=== PATIENT | male | born 1955 | race Caucasian/White ===

== ENCOUNTER 2024-11-23 10:06 | Emergency (ER) | payer OTHER, SELFPAY ==
--- OUTSIDE RECORDS SUMMARY | 2023-11-28 05:49 | XMS_ITS | Encounter Summary ---
Author Name [facility] [place] [facility] [place] [facility] [place] [facility] [place] Address [address] [place] [address] Care Team Providers Care Sales And Leasing Consultant Name Role Phone AMANDEEP PETERS Primary Care Provider Unavailabl e DRE, SAMMI Unavailable Unavailable HILARIO CABRAL Primary Care Provider Unavailabl e Insurance Providers: All historical and current Section Date Range: From patient's date of to the date document was created. This section includes the names of all active insurance providers for the patient. Insurance Provider Type of Coverage Plan Name Start of Policy Coverage End of Policy Coverage Group Number Member ID Insurance Provider's Telephone Number Policy Ross's Name Patient's Relationship to Policy Ross MEDICARE (WNR) MEDICARE (M) PART A May 04, 2019 PART A [id number] [phone] KIMMIE,ALVARO SHELTON PATIENT MEDICARE (WNR) MEDICARE (M) PART B May 04, 2019 PART B [id number] BURKS,AN CAT PATIENT MEDICARE (WNR) MEDICARE (M) PART A October 02, 2018 PART A [id number] [phone] KIMMIE,ALVARO ZHENGONY PATIENT MEDICARE (WNR) MEDICARE (M) PART B October 02, 2018 PART B [id number] [phone] KIMMIE,ALVARO SHELTON PATIENT Selected Encounter This section includes the information on record at [place] for the Encounter. Date/Time Encounter Type Encounter Description Reason Pro vider Source Nov 28, 2023 09:49 AM Outpatient Encounter ADMIN PAT ACTIVTIES (MASNONCT) IHE Encounter Template Text not used by [place] Plan of Treatment: Future Appointments (+ 6 months) and Future Tests (+/- 45 days) The Plan of Treatment section includes future care activities for the patient from all [place] [facility]. This section includes future appointments and future orders which are active, pending or scheduled. Future Appointments This section includes appointments that were scheduled to occur 6 months from the date of the Encounter, up to a maximum of 20 appointments. The data comes from all [facility]. Appointment Date/Time Appointment Type Appointme nt Facility Name Dec 14, 2023 01:30 PM AMBULATORY - MEDICINE [facility] Jan 05, 2024 08:46 PM AMBULATORY - MEDICINE [facility] Feb 05, 2024 08:06 PM AMBULATORY - MEDICINE [facility] Feb 14, 2024 08:22 PM [facility] - [facility]ICINE [facility] Feb 27, 2024 07:02 PM [facility] - [facility]IC[facility] Feb 29, 2024 01:30 PM [facility] Mar 06, 2024 01:00 PM AMBULATORY - REHAB [facility]ICIN [facility] Mar 27, 2024 02:00 PM AMBULATORY - NONE [facility] Apr 02, 2024 01:45 PM [facility] Apr 02, 2024 02:20 PM [facility] Apr 02, 2024 03:45 PM AMBULATORY - REHAB MEDICIN [facility] Apr 15, 2024 08:30 AM AMBULATORY - NONE [facility] May 22, 2024 07:30 AM AMBULATORY - NONE [facility] May 22, 2024 10:30 AM AMBULATORY [facility] Active, Pending, and Scheduled Orders This section includes a listing of several types of active, pending, and scheduled orders, including clinic medications orders, diagnostic test orders, procedure orders and consult orders; where the start date of the order is 45 days before the date of the Encounter or 45 days after the date of theEncounter. The data comes from all [facility]. Test Date/Time Test Type Test Details Facility Name Dec 12, 2023 12:00 AM Laboratory - Chemistry Order LIPID PROFILE (FASTING) [facility]LOOD-[facility] Dec 12, 2023 12:00 AM Laboratory - Chemistry [facility] Dec 12, 2023 12:00 AM Laboratory - Chemistry Order MICROALBUMINURIA PANEL (ORDER.) URINE [facility] Dec 12, 2023 12:00 AM Laboratory - Chemistry Order URINALYSIS-MICROSCOPIC URINE [facility] Dec 12, 2023 12:00 AM Laboratory - Chemistry Order OP-CBC (INCL DIFF[facility] Dec 12, 2023 12:00 AM Laboratory - Chemistry Order SIMPLIFIED METABOLIC PANEL BLOOD-[facility] Dec 12, 2023 12:00 AM Laboratory - Chemistry Order LIVER FUNCTION PANEL BLOOD-[facility] Social History: Smoking Status (Most current) and Tobacco Use (All prior to encounter date) This section includes the most current, and the historical, smoking and tobacco- related health factors from the [place] facility where the Encounter took place. Current Smoking Status This section includes the most current smoking, or tobacco-related health factor, from the [place] facility where the Encounter took place. Date/Time Current Smoking Status Comment Facil ity Jun 13, 2023 10:00 AM VA-TOBACCO FORMER USER [facility] Tobacco Use History This section includes a history of the smoking, or tobacco-related health factors, that were collected on or before the date of the Encounter. The data comes from the [place] facility where the Encounter took place. Date/Time Smoking Status/Tobacco Use Comment F acility Jun 13, 2023 10:00 AM MS-TOBACCO QUIT < 1 YEAR [facility] Advance Directives: All historical and current Section Date Range: From patient's date of to the date document was created. This section includes ALL of a patient's completed or amended [place] Advance and Rescinded Directives. The entries below indicate that a directive exists for the patient, but an actual copy is not included with this document. The data comes from all [place] facilities. Date Advance Directives Provider Source Jun 13, 2023 ADVANCE DIRECTIVE DISCUSSION VÍCTOR HAMPTON [facility] Jan 16, 2008 ADVANCE DIRECTIVE ROBERTA GARCIA [facility] Jan 16, 2008 ADVANCE DIRECTIVE RALPH DE DIOS NIKarey [facility] Radiology Reports: +/- 30 days of the encounter Radiology Reports For cases when an order for radiology services may have been completed prior to the date of the Encounter, the report list includes the Radiology Reports that were completed up to 30 days before dateof the Encounter. For cases when an order for radiology services may have been completed after the date of the Encounter, the report list also includes the Radiology Reports that were completed up to30 days after date of the Encounter. The data comes from all [place] treatment facilities. Date/Time Radiology Report Provider Source Nov 19, 2023 06:24 AM LDCT LUNG CANCER S CREENING: BURKS,ROSE MARY KATHY [id number] -1955 M Exm Date: NOV 19, 2023@06:24 Req Phys: ISAAK BATES Loc: [facility] RN PHONE (Req'g Loc) Img Loc: [facility] CT Service: [place] [address] (Case [id number] COMPLETE) LDCT LUNG CANCER SCREENING (CT Detailed) CPT:35723 Reason for Study: SEE BELOW Clinical History: REASON FOR EXAM and PERTINENT PATIENT HISTORY: 67 yo,WHITE OR ,MALE with h/o HTN, skin ca, TIA 01/2023, CAD, COPD and 110 TPY (2 ppd x 55 yrs) cigarette smoking history, is a previous smoker, quit 01/2023. Referred to initial LCS. ORAL Contrast? Defer to Radiologist Defer to radiologist for final CT Protocol? Yes PROVIDER Ext:Pager# (the following included in case IV contrast considered) Collection DT Spec eGFR a 06/13/2023 12:46 SERUM 93.4 b 05/18/2023 09:32 SERUM 65.5 COMMENTS: a. eGFR CKD-EPI eGFR calculated using the 2020 BIO-BNJ-kvkidtaeed equation; units of measure are mL/min/1.73m~2. eGFR can only be interpreted if creatinine is in steady state and is not valid in patients with acute kidney injury and in patients on dialysis. CKD is diagnosed based on abnormalities of kidney structure or function, present for >3 months, with implications for health and disease. CKD is classified and stage based on cause, eGFR and albuminuria, quantified as urine albumin to creatinine ratio. eGFR staging of CKD Stage G1 eGFR >90 mL/min/1.73m~2 Stage G2 eGFR 60-89 mL/min/1.73m~2 Stage G3a eGFR 45-59 mL/min/1.73m~2 Stage G3b eGFR 30-44 mL/min/1.73m~2 Stage G4 eGFR 15-29 mL/min/1.73m~2 Stage G5 eGFR <15 mL/min/1.73m~2 b. eGFR CKD-EPI eGFR calculated using the 2020 BLO-GDE-sduebgrgyg equation; units of measure are mL/min/1.73m~2. eGFR can only be interpreted if creatinine is in steady state and is not valid in patients with acute kidney injury and in patients on dialysis. CKD is diagnosed based on abnormalities of kidney structure or function, present for >3 months, with implications for health and disease. CKD is classified and stage based on cause, eGFR and albuminuria, quantified as urine albumin to creatinine ratio. eGFR staging of CKD Stage G1 eGFR >90 mL/min/1.73m~2 Stage G2 eGFR 60-89 mL/min/1.73m~2 Stage G3a eGFR 45-59 mL/min/1.73m~2 Stage G3b eGFR 30-44 mL/min/1.73m~2 Stage G4 eGFR 15-29 mL/min/1.73m~2 Stage G5 eGFR <15 mL/min/1.73m~2 Report Status: Verified Date Reported: NOV 20, 2023 Date Verified: NOV 20, 2023 Manager Market Intelligence E-Sig: Report: EXAM: LDCT LUNG CANCER SCREENING ADDITIONAL HISTORY: 67 yo,WHITE OR ,MALE with h/o HTN, skin ca, TIA 01/2023, CAD, COPD and 110 TPY (2 ppd x 55 yrs) cigarette smoking history, is a previous smoker, quit 01/2023. Referred to initial LCS. 67 yo,WHITE OR ,MALE with h/o HTN, skin ca, TIA 01/2023, CAD, COPD and 110 TPY (2 ppd x 55 yrs) cigarette smoking history, is a previous smoker, quit 01/2023. Referred to initial LCS. COMPARISON: CT chest 01/18/2023 PROTOCOL: Screening protocol, low dose, non-contrast CT chest was performed at the local [place] facility in accordance with Lung-Rads 2021. Additional coronal and sagittal reconstructions. MIP reconstructions were reviewed. RADIATION DOSE: CTDI(vol): 3 mGy DLP: 138 mGy*cm INDEX NODULE: No suspicious pulmonary nodule. OTHER NODULES: Few pulmonary micronodules, some of which are stable, others appear new, for example a 2 mm nodule in the right upper lobe (302-37). Calcified granulomas, likely sequelae of remote granulomatous disease. LUNG/AIRWAY FINDINGS: Biapical pleural parenchymal scarring. Additional mild scattered atelectasis/scarring. HEART, MEDIASTINUM AND LYMPH NODES: Atherosclerotic vascular calcifications. Subcentimeter short axis lymph nodes. UPPER ABDOMEN: Hepatic steatosis. Cholelithiasis. Contracted gallbladder. Punctate nonobstructive right nephrolithiasis. BONES, SOFT TISSUES, AND ADDITIONAL FINDINGS: Mild gynecomastia. Osseous degenerative changes. Impression: LUNG-RADS: LungRADS 2: BENIGN NODULE APPEARANCE OR BEHAVIOR. RECOMMENDATION: [address] follow-up, if patient meets screening criteria. LUNG-RADS MODIFIER: N/A. Briana Luna MD on 11/20/2023 9:02 AM Primary Diagnostic Code: LUNGRADS 2: BENIGN APPEARANCE OR BEHAVIOR Primary Interpreting Staff: BRIANA LUNA, Radiologist Verified by computer tape librarian for BRIANA LUNA /BRIANA ROWELL [facility] Encounter Notes: All associated encounter notes This section contains the clinical notes associated to the Encounter. Date/Time Encounter Note(s) Provider Source Nov 28, 2023 09:49 AM ADMINISTRATIVE NOT E: LOCAL TITLE: HEALTH ADMINISTRATION SERVICE NOTE/ ADMIN STANDARD TITLE: ADMINISTRATIVE NOTE DATE OF NOTE: NOV 28, 2023@09:49 ENTRY DATE: NOV 28, 2023@09:50:01 AUTHOR: ANGELICA FAJARDO COSIGNER: URGENCY: STATUS: COMPLETED Mr. Burks was not available, so I left message informing the that his 12/27/23 appointment has been canceled. I also left a contact number the can call when he is ready to R[facility] [place] [address] provider, Dr. Jay is leaving this facility. /kallie/ ANGELICA FAJARDO msa Signed: 11/28/2023 09:51 ANGELICA FAJARDO [facility]
--- OUTSIDE RECORDS SUMMARY | 2023-11-29 06:15 | XMS_ITS | Encounter Summary ---
Author Name [facility] [place] [facility] [place] [facility] [place] Address [address] [place] [address] Care Team Providers Care Supervisor Typesetting Name Role Phone AMANDEEP PETERS Primary Care [...] PART A May 04, 2019 PART A [id number] KIMMIE,ALVARO SHELTON PATIENT MEDICARE (WNR) MEDICARE (M) PART B May 04, 2019 PART B [id number] BURKS,AN CAT PATIENT MEDICARE (WNR) MEDICARE (M) PART A October 02, 2018 PART A [id number] KIMMIE,ALVARO ZHENGONY PATIENT MEDICARE (WNR) MEDICARE (M) PART B October 02, 2018 PART B [id number] KIMMIE,ALVARO SHELTON PATIENT Selected Encounter This section includes the information on record at [place] for the Encounter. Date/Time Encounter Type Encounter Description Reason Pro vider Source Nov 29, 2023 10:15 AM Outpatient Encounter ADMIN PAT ACTIVTIES (MASNONCT) IHE Encounter Template Text not used by [place] Plan of Treatment: Future Appointments (+ 6 months) and Future Tests (+/- 45 days) The Plan of Treatment section includes future care activities for the patient from all [place] [facility]. This section includes future appointments and future orders which are active, pending or scheduled. Future Appointments This section includes appointments that were scheduled to occur 6 months from the date of the Encounter, up to a maximum of 20 appointments. The data comes from all [facility]. Appointment Date/Time Appointment Type Appointme nt Facility Name Dec 14, 2023 01:30 PM AMBULATORY - MEDICINE [facility] Jan 05, 2024 08:46 PM AMBULATORY - MEDICINE [facility] Feb 05, 2024 08:06 PM AMBULATORY - MEDICINE [facility] Feb 14, 2024 08:22 PM [facility]ORY - [facility]IC[facility] Feb 27, 2024 07:02 PM [facility] Feb 29, 2024 01:30 PM [facility] Mar 06, 2024 01:00 PM [facility] Mar 27, 2024 02:00 PM AMBULATORY - NONE [facility] Apr 02, 2024 01:45 PM [facility] Apr 02, 2024 02:20 PM [facility] Apr 02, 2024 03:45 PM [facility] Apr 15, 2024 08:30 AM AMBULATORY - NONE [facility] May 22, 2024 07:30 AM AMBULATORY - NONE [facility] May 22, 2024 10:30 AM AMBULATORY [facility] Active, Pending, and Scheduled Orders This section includes a listing of several types of active, pending, and scheduled orders, including clinic medications orders, diagnostic test orders, procedure orders and consult orders; where the start date of the order is 45 days before the date of the Encounter or 45 days after the date of theEncounter. The data comes from all [facility]. Test Date/Time Test Type Test Details Facility Name Dec 12, 2023 12:00 AM Laboratory - Chemistry Order LIPID PROFILE (FASTING) BLOOD-[facility] Dec 12, 2023 12:00 AM Laboratory - Chemistry Order [facility] Dec 12, 2023 12:00 AM Laboratory - Chemistry Order MICROALBUMINURIA PANEL (ORDER.) URINE [facility] Dec 12, 2023 12:00 AM Laboratory - Chemistry Order URINALYSIS-MICROSCOPIC URINE [facility] Dec 12, 2023 12:00 AM Laboratory - Chemistry Order OP-CBC (INCL DIFF) [facility] Dec 12, 2023 12:00 AM Laboratory - Chemistry Order SIMPLIFIED METABOLIC PANEL BLOOD-[facility] Dec 12, 2023 12:00 AM Laboratory - Chemistry Order LIVER FUNCTION PANEL BLOOD-[facility] Social History: Smoking Status (Most current) and Tobacco Use (All prior to encounter date) This section includes the most current, and the historical, smoking and tobacco- related health factors from the [place] facility where the Encounter took place. Current Smoking Status This section includes the most current smoking, or tobacco-related health factor, from the [place] facility where the Encounter took place. Date/Time Current Smoking Status Comment Facil ity Jun 13, 2023 10:00 AM VA-TOBACCO FORMER USER [facility] Tobacco Use History This section includes a history of the smoking, or tobacco-related health factors, that were collected on or before the date of the Encounter. The data comes from the [place] facility where the Encounter took place. Date/Time Smoking Status/Tobacco Use Comment F acility Jun 13, 2023 10:00 AM PA-TOBACCO QUIT < 1 YEAR [facility] Advance Directives: All historical and current Section Date Range: From patient's date of to the date document was created. This section includes ALL of a patient's completed or amended [place] Advance and Rescinded Directives. The entries below indicate that a directive exists for the patient, but an actual copy is not included with this document. The data comes from all [place] facilities. Date Advance Directives Provider Source Jun 13, 2023 ADVANCE DIRECTIVE DISCUSSION VÍCTOR HAMPTON [facility] Jan 16, 2008 ADVANCE DIRECTIVE ROBERTA GARCIA [facility] Jan 16, 2008 ADVANCE DIRECTIVE RALPH DE DIOS [facility] Radiology Reports: +/- 30 days of the [...] the Encounter. The data comes from all [place] treatment facilities. Date/Time Radiology Report Provider Source Nov 19, 2023 06:24 AM LDCT LUNG CANCER S CREENING: BURKS,ROSE MARY KATHY [id number] -1955 M Exm Date: NOV 19, 2023@06:24 Req Phys: ISAAK BATES Loc: [facility] RN PHONE (Req'g Loc) Img Loc: [facility] CT Service: [place] [address] (Case [id number] COMPLETE) LDCT LUNG CANCER SCREENING (CT Detailed) CPT:49367 Reason for Study: SEE BELOW Clinical History: [...] eGFR CKD-EPI eGFR calculated using the 2020 DXK-CFR-xjyxtusqrk equation; units of measure are mL/min/1.73m~2. eGFR [...] eGFR CKD-EPI eGFR calculated using the 2020 TZQ-XLL-nnuzxzyzie equation; units of measure are mL/min/1.73m~2. eGFR [...] 20, 2023 Date Verified: NOV 20, 2023 Tire Manager E-Sig: Report: EXAM: LDCT LUNG CANCER SCREENING [...] CT chest was performed at the local [place] facility in accordance with Lung-Rads 2021. Additional [...] Interpreting Staff: BRIANA LUNA, Radiologist Verified by metrologist for BRIANA LUNA /BRIANA ROWELL [facility] Encounter Notes: All associated encounter notes This section contains the clinical notes associated to the Encounter. Date/Time Encounter Note(s) Provider Source Nov 29, 2023 10:16 AM ADMINISTRATIVE NOT E: LOCAL TITLE: HEALTH ADMINISTRATION SERVICE NOTE/ ADMIN STANDARD TITLE: ADMINISTRATIVE NOTE DATE OF NOTE: NOV 29, 2023@10:16 ENTRY DATE: NOV 29, 2023@10:16:10 AUTHOR: ANGELICA FAJARDO COSIGNER: URGENCY: STATUS: COMPLETED Mr. Burks was not available, so I left message informing him the 12/27/23 appointment has been cx. Due to the [place] [facility] provider transferring to the [facility]. I also left a contact number the can call when he is ready to reschedule the new January 2024 appointment with [place] provider. /es/ ANGELICA FAJARDO msa Signed: 11/29/2023 10:19 ANGELICA FAJARDO [facility]
--- OUTSIDE RECORDS SUMMARY | 2024-01-05 16:46 | XMS_ITS | Encounter Summary ---
Author Name [facility] [place] [facility] [place] Address [address] [place] [address] Care Team Providers Care Contract Administration Manager Name Role Phone AMANDEEP PETERS Primary Care [...] PART A May 04, 2019 PART A [id number] KIMMIE,ALVARO ZHENGONY PATIENT MEDICARE (WNR) MEDICARE (M) PART B May 04, 2019 PART B [id number] BURKS,AN CAT PATIENT MEDICARE (WNR) MEDICARE (M) PART A October 02, 2018 PART A [id number] BURKS,AN CAT PATIENT MEDICARE (WNR) MEDICARE (M) PART B October 02, 2018 PART B [id number] KIMMIE,ALVARO SHELTON PATIENT Selected Encounter This section includes the information on record at [place] for the Encounter. Date/Time Encounter Type Encounter Description Reason Provider Source Jan 05, 2024 08:46 PM EMERGENCY DEPT VISIT [facility] EMERGENCY DEPT ICD-10-CM Z04.9 Encounter for examination and observation for unsp reason TAMIKA TRIVEDI [facility] Encounter Template Text not used by [place] Assessments - Encounter Diagnoses This section includes the primary and secondary diagnoses documented for the Encounter. Date/Time Primary/Secondary Diagnosis Diagnosis Name Provider Source Jan 05, 2024 10:34 PM PRIMARY Encounter for examination and observation for unsp reason TAMIKA TRIVEDI [facility] Plan of Treatment: Future Appointments (+ 6 months) and Future Tests (+/- 45 days) The Plan of Treatment section includes future care activities for the [facility] This section includes future appointments and future orders which are active, pending or scheduled. Future Appointments This section includes appointments that were scheduled to occur 6 months from the date of the Encounter, up to a maximum of 20 appointments. The data comes from all [place] treatment facilities. Appointment Date/Time Appointment Type Appointme nt Facility Name Feb 05, 2024 08:06 PM AMBULATORY - [facility]ICINE [place] [facility] Feb 14, 2024 08:22 PM [facility]ORY - [facility]IC[facility] [place] [facility] Feb 27, 2024 07:02 PM [facility]ORY - [facility]ICINE [place] [facility] Feb 29, 2024 01:30 PM [facility] Mar 06, 2024 01:00 PM AMBULATORY - [facility] Mar 27, 2024 02:00 PM [facility] Apr 02, 2024 01:45 PM [facility] Apr 02, 2024 02:20 PM [facility] Apr 02, 2024 03:45 PM AMBULATORY - [facility] MEDICIN E [facility] Apr 15, 2024 08:30 AM AMBULATORY - NONE [facility] May 22, 2024 07:30 AM AM[facility]ORY - NONE [place] [facility] May 22, 2024 10:30 AM [facility] Jun 18, 2024 01:00 PM AMBULATORY - SURGERY [place] [facility] Jul 05, 2024 06:18 AM AMBULATORY - MEDICINE [facility] [facility] Active, Pending, and Scheduled Orders This section includes a listing of several types of active, pending, and scheduled orders, including clinic medications orders, diagnostic test orders, procedure orders and consult orders; where the start date of the order is 45 days before the date of the Encounter or 45 days after the date of theEncounter. The data comes from all [place] treatment facilities. Test Date/Time Test Type Test Details Facility Name Dec 12, 2023 12:00 AM Laboratory - Chemistry Order LIPID PROFILE (FASTING) [facility]LOOD-[facility] Dec 12, 2023 12:00 AM Laboratory - Chemistry [facility] Dec 12, 2023 12:00 AM Laboratory - Chemistry Order MICROALBUMINURIA PANEL (ORDER.) URINE [facility] Dec 12, 2023 12:00 AM Laboratory - Chemistry Order URINALYSIS-MICROSCOPIC URINE [facility] Dec 12, 2023 12:00 AM Laboratory - Chemistry Order OP-CBC (INCL DIFF) [facility] Dec 12, 2023 12:00 AM Laboratory - Chemistry Order SIMPLIFIED METABOLIC PANEL BLOOD-[facility] Dec 12, 2023 12:00 AM Laboratory - Chemistry Order LIVER FUNCTION PANEL BLOOD-[facility] Vital Signs: All taken on the encounter date This section contains inpatient and outpatient Vital Signs collected on the date of the Encounter. Date/Time Temperature Pulse Blood Pressure Respiratory Rate SP02 Pain Height Weight Body Mass Index Source Jan 05, 2024 08:56 PM 97.9 96 160/98 17 98 8 204.8 33 [facility] Social History: Smoking Status (Most current) and Tobacco Use (All prior to encounter date) This section includes the most current, and the historical, smoking and tobacco- related health factors from the [place] facility where the Encounter took place. Current Smoking Status This section includes the most current smoking, or tobacco-related health factor, from the [place] facility where the Encounter took place. Date/Time Current Smoking Status Comment Bautista calvillo Jan 04, 2017 03:31 PM CURRENT TOBACCO USER [facility] Tobacco Use History This section includes a history of the smoking, or tobacco-related health factors, that were collected on or before the date of the Encounter. The data comes from the [place] facility where the Encounter took place. Date/Time Smoking Status/Tobacco Use Comment F acility Jan 04, 2017 03:31 PM TOB INFO ON NON-VA STOP SMOKING CLINIC [facility] Jan 04, 2017 03:31 PM TOBACCO OFFERED PT MEDS (PROVIDE R) [facility] May 31, 2011 09:24 AM QUIT TOBACCO IN THE LAST [address] [facility] Advance Directives: All historical and current Section Date Range: From patient's date of to the date document was created. This section includes ALL of a patient's completed or amended [place] Advance and Rescinded Directives. The entries below indicate that a directive exists for the patient, but an actual copy is not included with this document. The data comes from all [place] facilities. Date Advance Directives Provider Source Jun 13, 2023 ADVANCE DIRECTIVE DISCUSSION VÍCTOR [facility] Jan 16, 2008 ADVANCE DIRECTIVE ROBERTA GARCIA [facility] Jan 16, 2008 ADVANCE DIRECTIVE RALPH DE DIOS [facility] Encounter Notes: All associated encounter notes This section contains the clinical notes associated to the Encounter. Date/Time Encounter Note(s) Provider Source Jan 05, 2024 09:37 PM EMERGENCY DEPT DIS CHARGE NOTE: LOCAL TITLE: EMERGENCY DEPT DISCHARGE INSTRUCTIONS STANDARD TITLE: EMERGENCY DEPT DISCHARGE NOTE DATE OF NOTE: JAN 05, 2024@21:37 ENTRY DATE: JAN 05, 2024@21:37 AUTHOR: ATMIKA TRIVEDI COSIGNER: URGENCY: STATUS: COMPLETED DISCHARGE INSTRUCTIONS IMPORTANT: We examined and treated you today on an emergency basis only. This was not a substitute for, or an effort to provide, comprehensive medical care. In most cases, you must let your healthcare provider check you again. Tell your healthcare provider about any new or lasting problems. We cannot recognize and treat all injuries or illnesses in one Emergency Department visit. After you leave, you should follow the instructions below. You were treated today by [facility]. [facility] Nurse Advice Call Center: Available 24 hours a day / 7 days a week at [phone] Special Information This Information Is About Your Follow Up Care We have submitted a request to have you assigned to a Primary Care team. You will receive a call in the next 7-10 business days. Future Appointments [none] This Information Is About Your Illness and Diagnosis LUMBAR RADICULOPATHY (Sciatica) Lumbar radiculopathy is pain in the low back that may go down into the buttock and leg. Sometimes it is called sciatica . The bones of the spine are called vertebrae . The vertebrae are stacked one on top of each other, with small cushions called discs in between each bone. Nerves from the spinal cord come out through the vertebrae, with the nerves in the lower spine going to the legs. If a nerve becomes irritated or pinched, pain and weakness may occur. What causes lumbar radiculopathy? Lumbar radiculopathy may be caused by anything that may pinch or irritate a spinal nerve in the low back, including: -arthritis in the spine -a bulging or herniated disc between the vertebrae -breakdown of a disc between the vertebrae from wear and tear -spinal stenosis (narrowing of the opening in the vertebrae) - defects of the spine -spine injuries What are the signs and symptoms of lumbar radiculopathy? -sharp, burning pain in the low back that shoots down the leg -leg and buttock pain -weakness in the leg and foot, particularly on only one side -numbness and/or tingling in the leg and foot -muscle spasms How does my health care provider know I have lumbar radiculopathy? -by examining you and talking to you about your symptoms -by doing x-rays of your back -by doing a magnetic resonance imaging (MRI) scan of your back -by doing a computerized tomography (CT) scan of your back -sometimes other tests are needed, such as a myelogram What is the usual treatment? -rest -pain medications (either griv-izm-ununihj medications or prescription medications) -muscle relaxant medications -physical therapy to help with strengthening your back -possible steroid injection in your back Please follow these instructions: -Slowly return to your usual activities, as allowed by your health care provider's instructions. -Avoid lifting, pushing or pulling. -Avoid sitting for long periods. -Do your back exercises regularly. -Keep follow-up appointments with your health care provider and/or with physical therapy. -Take any medications ordered for you exactly as directed. Contact your health care provider if you have: -pain in your back, buttock, or leg returns or gets worse. -weakness in your leg returns or gets worse. -numbness or tingling in your leg returns or gets worse. -any questions or concerns. KNEE PAIN The knee is prone to injury. Knee pain can be caused by excess weight, strains or injuries. It can involve the tendons, ligaments or bones. The treatment for the knee pain will depend on the cause of the pain. Most knee pain will get better with time and rest. In cases where the damage is severe, surgery may be recommended. Your health care provider will help determine the best way to treat the knee pain. Please follow these instructions: -Rest your knee for the next few days. -Elevate your knee on pillows when you are resting. -Apply an ice bag to your knee for 10 to 20 minutes to help with swelling and pain. -Take pain medicines exactly as prescribed. -Once the pain has lessened, you may slowly return to your normal activities. -Do not lift heavy objects or put any strain on your knee until the pain is gone. -Avoid any activity that causes pain. Contact your health care provider as soon as possible if you have any of the following: -increased pain. -pain that does not get any better over the next couple of weeks. -any new or more severe symptoms. -any questions or concerns. NEUROPATHY (Nerve pain or numbness) Nerve pain or numbness is caused by inflammation or damage to the nervous system in your body. This neuropathy does not involve the brain and spinal cord nervous system. The inflammation or damage may be caused by injury or disease. Sometimes we don't know the cause of neuropathy right away. Neuropathy may be chronic (long-lasting). It may have many symptoms including weakness, numbness, tingling, or pain. Please follow these instructions: -Exercise 15 to 30 minutes each day unless limited by your healthcare provider. Avoid activity that makes your symptoms worse. -Be realistic about how much you physically can do without increasing your pain. -Establish a regular sleep schedule. -Limit the caffeine in your diet. -If you smoke, STOP. -Eat a healthy, balanced diet. -Do not drink alcohol. -Practice relaxation techniques for your muscles and breathing. -Keep a diary that describes your pain or numbness by: -location -length of time pain or numbness is present -activity when pain or numbness started -description (stinging, burning, achy, stabbing, etc.) -time of day pain or numbness occurs -Show your pain diary to your healthcare provider during follow-up visits. Call your healthcare provider if: -your symptoms are getting worse. -your symptoms are not getting better after 7 to 14 days. -your symptoms change. -you have any new symptoms or concerns. IMPORTANT MEDICATION INFORMATION -Your medication list includes any medications that were recently prescribed but not filled by the Pharmacy (PENDING Medicines). -Included are any known ACTIVE Medicines. Your ACTIVE medications were not reconciled (reviewed for accuracy) today and may not represent the medications you are currently taking. Please review this list to make sure it is accurate, if this list does not match the current medications you are taking please follow-up with your Patient Alignment Care Team (PACT) to have your Medication List corrected. Be sure to provider your PACT team with any medications prescribed by health care institutions other than the [place]. Pending Medications GABAPENTIN 100MG CAP \ Sig: TAKE ONE CAPSULE BY MOUTH THREE TIMES A DAY FOR 7 DAYS, THEN TAKE TWO CAPSULES THREE TIMES A DAY FOR 7 DAYS, THEN TAKE THREE CAPSULES THREE TIMES A DAY\ This Rx contains a separate titration and maintenance component to its schedule and instructions \Indication: FOR NERVE PAIN PREDNISONE 20MG TAB \ Sig: TAKE TWO TABLETS BY MOUTH EVERY MORNING\Indication: FOR INFLAMMATION Active Medications AMLODIPINE BESYLATE 5MG TAB TAKE ONE TABLET BY MOUTH EVERY DAY FOR HIGH BLOOD PRESSURE ASPIRIN 81MG EC TAB TAKE ONE TABLET BY MOUTH EVERY DAY TO REDUCE YOUR RISK OF STROKE ATORVASTATIN CALCIUM 80MG TAB TAKE ONE TABLET BY MOUTH AT BEDTIME FOR HIGH CHOLESTEROL AZELASTINE INHL,NASAL 1 SPRAY IN EACH NOSTRIL EVERY MORNING (Non-VA Medication) CLOPIDOGREL BISULFATE 75MG TAB TAKE ONE TABLET BY MOUTH EVERY MORNING TO PREVENT STROKE DOXYCYCLINE HYCLATE CAP,ORAL 100MG BY MOUTH TWICE A DAY (Non-VA Medication) METHYLPREDNISOLONE 4MG TAB DOSEPAK,21 TAKE TABLETS BY MOUTH DIRECTED FOR INFLAMMATION WITH FOOD PER INSTRUCTIONS LOCATED ON BACK OF FOIL PACKAGE MethylPREDNISolone DOSEPAK TAB TABLETS BY MOUTH DIRECTED (Non-VA Medication) Medications Medications in the last 90 days ALBUTEROL 90MCG (CFC-F) 200D ORAL INHL INHALE 2 PUFFS BY MOUTH FOUR TIMES A DAY NEEDED FOR BRONCHOSPASM *SHAKE WELL BEFORE USING* AZELASTINE 137MCG/SPRAY 200D NASAL INHL USE 2 SPRAYS IN EACH NOSTRIL AT BEDTIME FOR SEASONAL RUNNY NOSE FLUTICAS 250/SALMETEROL 50 INHL DISK 60 INHALE 1 INHALATION BY MOUTH TWICE A DAY FOR BETTER BREATHING *RINSE MOUTH AFTER USE* POTASSIUM CHLORIDE 10MEQ SA TAB TAKE ONE TABLET BY MOUTH EVERY DAY FOR POTASSIUM REPLACEMENT TIOTROPIUM 2.5MCG/ACTUAT 60D ORAL INHL INHALE 2 PUFFS BY MOUTH EVERY MORNING FOR BETTER BREATHING Discontinued Medications Medications discontinued in the last 90 days [none] YOU ARE THE MOST IMPORTANT FACTOR IN YOUR RECOVERY. Follow the above instructions carefully. Take your medicines as prescribed. If you do not understand any of your medicines, please ask questions. If you think you may not be able to bean picker machine operator your medicine, please let us know so we can look at other options. If you had any special tests such as EKG's or X-rays, we will review them again within 24 hours. We will call you if there are any new significant findings. Most importantly, see your PACT for follow up as discussed. Be sure to let us know if you don't know where your PACT is located. If you don't have transportation for your follow up appointment(s), let us know. If you have problems that we have not discussed, call of visit your PACT right away. If you cannot reach your PACT, go to the Emergency Department. IF YOU ARE EXPERIENCING A MEDICAL EMERGENCY CALL 911 OR GO TO THE NEAREST EMERGENCY ROOM /kallie/ Ulises TRIVEDI MS, RICARDO, CAQ-EM EMERGENCY MEDICINE PA Signed: 01/05/2024 21:37 TAMIKA TRIVEDI [facility] Jan 05, 2024 09:30 PM NURSING NOTE: LOCAL TITLE: EMERGENCY RN CARE NOTE STANDARD TITLE: NURSING NOTE DATE OF NOTE: JAN 05, 2024@21:30 ENTRY DATE: JAN 05, 2024@21:30:43 AUTHOR: MOHIT LALA EXP COSIGNER: URGENCY: STATUS: COMPLETED EMERGENCY DEPARTMENT RN NOTE BRIEF INITIAL ASSESSMENT: INITIAL ED NURSING ASSESSMENT ARRIVAL: Mohit Lala assumes care of patient. CHIEF COMPLAINT: Pt reports lower back pain radiating down left leg and left knee x 1 month. Denies injury, denies loss of bladder/bowel control or numbness/tingling to extremities. Hx of neuropathy Completed on Arrival: PAIN ASSESSMENT Pain Scale: Numeric Does patient currently have any pain? Yes Acute Yes Site location: lower back Pain level: 8 Quality: (aching, burning, cramping, dull, sharp, shooting, stabbing, throbbing, tender) shooting Onset/Duration: (how long have you had your pain): 1 month Pattern: (comes and goes, nightly, when breathing, etc): comes and goes SYSTEMS ASSESSMENT: NEUROLOGICAL/MOTOR: Level of Consciousness: Awake Alert Oriented: x 4 Decreased level of consciousness? No Pupils: Size: R: 3mm L: 3mm Equal Round Reactive to Light Brisk Reaction Accomodate Glascow Coma Scale: Eyes Open: 4 = spontaneously Verbal response: 5 = oriented Motor response: 6 = obeys commands *Total: 15 MUSCULOSKELETAL SYSTEM Patient indicates: Ambulation: weight bearing Assessment: Date & Time of Injury: Location of complaint: LLE Abnormalities: Circulation: Pulses palpable: : Color: Normal Temperature: Warm, Dry Capillary Refill: Less than 3 seconds NURSING PROCEDURES: 2124- Festus GAMINO at bedside for evaluation 2204- [facility] and discharge instructions given to patient by Festus GAMINO. Pt advised to wait in lobby for rx meds. /es/ MOHIT LALA RN Signed: 01/05/2024 22:09 MOHIT LALA [facility] Jan 05, 2024 09:00 PM PHYSICIAN EMERGENC Y DEPT NOTE: LOCAL TITLE: EMERGENCY DEPT PHYSICIAN NOTE STANDARD TITLE: PHYSICIAN EMERGENCY DEPT NOTE DATE OF NOTE: JAN 05, 2024@21:00 ENTRY DATE: JAN 05, 2024@21:00:55 AUTHOR: FAROOQ,TAMIKA S EXP COSIGNER: URGENCY: STATUS: COMPLETED Emergency Department Provider Note CC: L knee pain HPI: Patient reports L knee pain over the past month without injury. Also reports acute on chronic sciatica. Denies loss of bowel/bladder control. Patient states that he recently relocated back to [place] but was being seen within the [facility] system. Recently diagnosed with neuropathy without prescribed treatment. ROS: Gen- no fever or chills, fatigue CV- no CP Resp- no dyspnea, cough Abd- no abdominal pain, N, V, D, blood in stool - no urinary sxs Neuro- no parasthesias, focal weakness, headache SOCIAL HX: Not pertinent to current complaint Active problems - Computerized Problem List is the source for the following: PROBLEM 1. Tobacco use (SNOMED CT 615191610) cigarettes 1 pack every 2 days 2. Allergic rhinitis (SNOMED CT 94867198) 3. Chronic obstructive lung disease 4. Degeneration of cervical intervertebral disc 5. Edema 6. Vitamin D deficiency 7. Gastro-esophageal reflux disease with esophagitis 8. Transient ischemic attack 9. Memory impairment 10. Hypertensive heart disease 11. Hyperlipidemia 12. Secondary hypertension Allergy: BACTRIM OUTPATIENT MEDICATIONS (per [facility] Computer Records): CLOPIDOGREL BISULFATE 75MG TAB TAKE ONE TABLET BY MOUTH EVERY MORNING TO PREVENT STROKE ASPIRIN 81MG EC TAB TAKE ONE TABLET BY MOUTH EVERY DAY TO REDUCE YOUR RISK OF STROKE ATORVASTATIN CALCIUM 80MG TAB TAKE ONE TABLET BY MOUTH AT BEDTIME FOR HIGH CHOLESTEROL AMLODIPINE BESYLATE 5MG TAB TAKE ONE TABLET BY MOUTH EVERY DAY FOR HIGH BLOOD PRESSURE Physical exam: VITALS - DATE/TIME TEMP PULSE RESP BP PAIN WT (LB) P OX 01/05/24 @ 2055 98 01/05/24 @ 2055 8 01/05/24 @ 2055 204.8 01/05/24 @ 2055 160/98 01/05/242055 17 01/05/242055 96 01/05/242055 97.9 GEN: Well-hydrated, well-appearing individual, NAD. HEENT: Normocephalic, atraumatic. Oropharynx is clear. CARD: Regular, No murmurs, rubs or gallops. PULM: Clear with normal effort. ABD: Soft, non-tender. No masses or HSM. No G/R, normal BS. BACK: No cyanosis. Tenderness along the paravertebral muscles of the lumbar spine bilaterally. No midline tenderness, step-off, or deformity. Positive L straight-leg raise. L KNEE: No cyanosis. No deformity or micro-motion tenderness. TTP/ROM, L knee. Joint is stable. Negative drawer. Positive Claudy's. SKIN: Warm and dry without rashes. NEURO: GCS 15. A&Ox4. Exam is non-focal. NV function intact in the LEs bilaterally. No foot drop or saddle anesthesia. Ambulatory without assistance. ED Course: Exam unremarkable for emergent process. Vitals are reassuring. Results reviewed with the patient and all questions answered. Follow-up instructions were discussed in detail and patient verbalized understanding. Assessment: Sciatica, neuropathy Prednisone 40mg PO daily x 4 days Medrol Dosepak (begin after prednisone regimen is complete) Gabapentin Plan/Disposition: Pt discharged home Instructions: Follow-up with PCP to discuss today's visit and for Ortho consult. Return to ED if new/worsening symptoms or if other acute problems develop. Pt verbalized understanding of all above and is discharged in stable condition. NOTE TO PCP: Your patient was seen in ED today. The patient will be following up with you for: 1. Reassessment 2. To discuss today's visit Abnormal findings and need for follow up has been communicated directly with Patient and/or family. Re-eval /kallie/ Ulises TRIVEDI MS, RICARDO, CAQ-EM EMERGENCY MEDICINE PA Signed: 01/05/2024 21:35 TAMIKA TRIVEDI [facility] Jan 05, 2024 08:55 PM NURSING EMERGENCY DEPT TRIAGE NOTE: LOCAL TITLE: EMERGENCY FAMILY MEMBER CARETAKER NOTE STANDARD TITLE: NURSING EMERGENCY DEPT TRIAGE NOTE DATE OF NOTE: JAN 05, 2024@20:55 ENTRY DATE: JAN 05, 2024@20:55:48 AUTHOR: JIMENA HADDAD EXP COSIGNER: URGENCY: STATUS: COMPLETED Emergency Department/Urgent Care Center Triage Patient age:68 Sex: MALE On arrival, patient was: AMBULATORY and presented and emergent condition as stated below. Patient Wristband applied? Yes Patient has verified information on wristband is correct? Yes No allergy(ies) or New allergy(ies) reported by at this time. Subjective/Chief Complaint: Pt reports LBP that radiates down left leg, also c/o knee pain x 1 month. Objective: Fall Assessment: 1. Presented to Emergency Department because of falls? No 2. Age >70: No 3. Altered mental status: No 4. Impaired mobility: No 5. Nurse Judgment: (bowel/bladder incontinence, diarrhea, urinary frequency/urgency, sensory deficits, leg weakness, orthostatic hypotension, dizziness/vertigo, medications such as diuretics, narcotics, or sedatives). [place] is not considered a high fall risk The patient is not a fall risk. Vital Signs: No data available Sepsis IS NOT suspected. Emergency Severity Index (MICHAEL) level Level 4 Current Medications: Active Outpatient Medications (excluding Supplies): Active Outpatient Medications Status 1) AMLODIPINE BESYLATE 5MG TAB TAKE ONE TABLET BY MOUTH ACTIVE EVERY DAY FOR HIGH BLOOD PRESSURE 2) ASPIRIN 81MG EC TAB TAKE ONE TABLET BY MOUTH EVERY ACTIVE DAY TO REDUCE YOUR RISK OF STROKE 3) ATORVASTATIN CALCIUM 80MG TAB TAKE ONE TABLET BY ACTIVE MOUTH AT BEDTIME FOR HIGH CHOLESTEROL 4) CLOPIDOGREL BISULFATE 75MG TAB TAKE ONE TABLET BY ACTIVE MOUTH EVERY MORNING TO PREVENT STROKE Active Non-VA Medications Status 1) Non-VA AZELASTINE 137MCG/SPRAY 200D NASAL INHL 1 ACTIVE SPRAY IN EACH NOSTRIL EVERY MORNING 2) Non-VA DOXYCYCLINE HYCLATE 100MG CAP 100MG BY MOUTH ACTIVE TWICE A DAY 3) Non-VA METHYLPREDNISOLONE 4MG TAB DOSEPAK,21 TABLETS ACTIVE BY MOUTH DIRECTED 7 Total Medications Suicide Screen: [place] Suicide Severity Rating Scale (C-SSRS) screener 1. Over the past month, have you wished you were or wished you could go to sleep and not wake up? No 2. Over the past month, have you had any actual thoughts of killing yourself? No 3. Over the past month, have you been thinking about how you might do this? Response not required due to responses to other questions. 4. Over the past month, have you had these thoughts and had some intention of acting on them? Response not required due to responses to other questions. 5. Over the past month, have you started to work out or worked out the details of how to kill yourself? Response not required due to responses to other questions. 6. If yes, at any time in the past month did you intend to carry out this plan? Response not required due to responses to other questions. 7. In your lifetime, have you ever done anything, started to do anything, or prepared to do anything to end your life (for example, collected pills, obtained a gun, gave away valuables, went to the roof but didn't jump)? No 8. If YES, was this within the past 3 months? Response not required due to responses to other questions. Are you living in a safe environment? Yes Are you carrying any weapons or contraband?No Do you have suicidal or homicidal ideation? No Do you have a psychiatric complaint or obvious psychiatric problem? No Stability Assessment includes the following: Neuro: Oriented to the following: Person, Place, Time, Situation Breathing Assessment: Eupneic, unlabored breathing Skin Assessment: Normal, warm and dry Additional Assessment: Are your immunizations current? Yes Display of immunizations from this chart: JAN 04, 2017 TDAP Next step in care: Taken to a stretcher in the ED /es/ JIMENA BURKETT keno manager nurse Signed: 01/05/2024 20:57 JIMENA HADDAD [facility]
--- OUTSIDE RECORDS SUMMARY | 2024-02-05 16:06 | XMS_ITS | Encounter Summary ---
Author Name [facility] [place] [facility] [place] Address [address] [place] [address] Care Team Providers Care Photonics Engineering Technologist Name Role Phone AMANDEEP PETERS Primary Care [...] PART A May 04, 2019 PART A [id number] KIMMIE,ALVARO ZHENGONY PATIENT MEDICARE (WNR) MEDICARE (M) PART B May 04, 2019 PART B [id number] BURKS,AN CAT PATIENT MEDICARE (WNR) MEDICARE (M) PART A October 02, 2018 PART A [id number] BURKS,AN CAT PATIENT MEDICARE (WNR) MEDICARE (M) PART B October 02, 2018 PART B [id number] KIMMIE,ALVARO SHELTON PATIENT Selected Encounter This section includes the information on record at [place] for the Encounter. Date/Time Encounter Type Encounter Description Reason Provider Source Feb 05, 2024 08:06 PM EMERGENCY DEPT VISIT [facility] EMERGENCY DEPT ICD-10-CM M25.562 Pain in left knee RICHELLE ROJAS Ana Laura Encounter Template Text not used by [place] Assessments - Encounter Diagnoses This section includes the primary and secondary diagnoses documented for the Encounter. Date/Time Primary/Secondary Diagnosis Diagnosis Name Provider Source Feb 05, 2024 10:02 PM PRIMARY Pain in left knee AMY ROJASZIN Tracy [facility] Feb 05, 2024 10:02 PM SECONDARY Allergic rhinitis, unspecified BOBRICHELLE B [facility] Feb 05, 2024 10:02 PM SECONDARY Gastro-esophageal reflux dis with esophagitis, without bleed BOBRICHELLE B [facility] Feb 05, 2024 10:02 PM SECONDARY Hypertensive heart disease without heart failure BOBRICHELLE B [facility] Feb 05, 2024 10:02 PM SECOND[facility] Plan of Treatment: Future Appointments (+ 6 months) and Future Tests (+/- 45 days) The Plan of Treatment section includes future care activities for the patient from all [place] [facility]. This section includes future appointments and future orders which are active, pending or scheduled. Future Appointments This section includes appointments that were scheduled to occur 6 months from the date of the Encounter, up to a maximum of 20 appointments. The data comes from all [place] treatment facilities. Appointment Date/Time Appointment Type Appointme nt Facility Name Feb 14, 2024 08:22 PM AMBULATORY - MEDICINE [facility] Feb 27, 2024 07:02 PM AMBULATORY - MEDICINE [facility] Feb 29, 2024 01:30 PM [facility] Mar 06, 2024 01:00 PM AMBULATORY - REHAB MEDICIN [facility] Mar 27, 2024 02:00 PM AMBULATORY - NONE [facility] Apr 02, 2024 01:45 PM [facility] Apr 02, 2024 02:20 PM [facility] Apr 02, 2024 03:45 PM AMBULATORY - REHAB MEDICIN [facility] Apr 15, 2024 08:30 AM AMBULATORY - NONE [facility] May 22, 2024 07:30 AM [facility] May 22, 2024 10:30 AM AM[facility]ULATORY - NONE [place] [facility] Jun 18, 2024 01:00 PM AMBUL[facility]ORY - [place]GERY [place] [facility] Jul 05, 2024 06:18 AM [facility] - MEDICINE [place] [facility] Jul 31, 2024 01:30 PM [facility] Lab Results: +/- 30 days of the encounter This section includes the Chemistry and Hematology Lab Results on record with [facility] for the patient. Radiology Reports and Pathology Reports are provided separately, in subsequent sections. Lab Results This section contains the Chemistry/Hematology Results that were resulted 30 days before or 30 daysafter the date of the Encounter. Date/Time Source Result Type Result - Unit Interpretation Reference Range Specimen Type Comment Feb 29, 2024 02:30 PM [facility] URINALYSIS URINE Specimen Type: URINE Comment: Microscopic Not Indicated Ordering Provider: HILARIO CABRAL Report Released Date/Time: Feb 29, 2024 01:30 PM Reporting Lab: [address] [address] Performing Lab: [address] [address] URINE COLOR Yellow Yellow URINE SPECIFIC GRAVITY 1.022 1.001-1.0 29 URINE BILIRUBIN Negative mg/dL Negative URINE KETONES Negative mg/dL Negative-Tr rachel UR GLUCOSE Normal mg/dL Normal UR PROTEIN Negative mg/dL URINE PH 5.5 5.0-8.0 CLARITY Clear Clear URINE BLOOD 0.03 mg/dL NITRITE, URINE Negative Negative LEUKOCYTE ESTERASE, URINE Negative URINE UROBILINOGEN Normal mg/dL Normal Feb 29, 2024 01:31 PM [facility] ALLERGEN FOOD PANEL SERUM Specimen Ty pe: SERUM Comment: TEST PERFORMED AT: [facility] [facility] [address] [place] [phone] Director: Joshua Medina MD, PhD, STEVE TEST PERFORMED AT: [facility] [facility] [employer] [facility] [address] [place] [phone] Director: Joshua Medina MD, PhD, STEVE TEST PERFORMED AT: [address] [address] Director: Joshua Medina MD, PhD, STEVE TEST PERFORMED AT: [address] [address] Director: Joshua Medina MD, PhD, STEVE TEST PERFORMED AT: [address] [address] Director: Joshua Medina MD, PhD, STEVE TEST PERFORMED AT: [address] [address] Director: Joshua Medina MD, PhD, STEVE TEST PERFORMED AT: [address] [address] Director: Joshua Medina MD, PhD, STEVE TEST PERFORMED AT: [address] [address] Director: Joshua Medina MD, PhD, STEVE TEST PERFORMED AT: [address] [address] Director: Joshua Medina MD, PhD, STEVE TEST PERFORMED AT: [address] [address] Director: Joshua Medina MD, PhD, STEVE TEST PERFORMED AT: [address] [address] Director: Joshua Medina MD, PhD, STEVE TEST PERFORMED AT: [address] [address] Director: Joshua Medina MD, PhD, STEVE TEST PERFORMED AT: [address] [address] Director: Joshua Medina MD, PhD, STEVE TEST PERFORMED AT: [address] [address] Director: Joshua Medina MD, PhD, STEVE TEST PERFORMED AT: [address] [address] Director: Joshua Medina MD, PhD, STEVE TEST PERFORMED AT: [place] [phone] Director: Joshua Medina MD, PhD, STEVE TEST PERFORMED AT: [place] [phone] Director: Joshua Medina MD, PhD, STEVE TEST PERFORMED AT: [place] [address] Director: Joshua Medina MD, PhD, STEVE TEST PERFORMED AT: [place] [address] Director: Joshua Medina MD, PhD, STEVE TEST PERFORMED AT: [place] [address] Director: Joshua Medina MD, PhD, STEVE TEST PERFORMED AT: [place] [address] Director: Joshua Medina MD, PhD, STEVE TEST PERFORMED AT: [place] [address] Director: Joshua Medina MD, PhD, STEVE TEST PERFORMED AT: [place] [address] Director: Joshua Medina MD, PhD, STEVE TEST PERFORMED AT: [place] [address] Director: Joshua Medina MD, PhD, STEVE TEST PERFORMED AT: [place] [phone] Director: Joshua Medina MD, PhD, STEVE INTERPRETATION SPECIFIC LEVEL OF ALLERGEN IGE CLASS kU/L SPECIFIC IGE ANTIBODY -------- --------- 0 <0.10 ABSENT/UNDETECTABLE 0/1 0.10-0.34 VERY LOW LEVEL 1 0.35-0.69 LOW LEVEL 2 0.70-3.49 MODERATE LEVEL 3 3.50-17.4 HIGH LEVEL 4 17.5-49.9 VERY HIGH LEVEL 5 50-100 VERY HIGH LEVEL 6 >100 VERY HIGH LEVEL The clinical relevance of allergen results of 0.10-0.34 kU/L are undetermined and intended for specialist use. TEST PERFORMED AT: [facility] [address] [address] Director: Joshua Medina MD, PhD, STEVE TEST PERFORMED AT: TEST PERFORMED AT: [facility] [address] [address] [place] [address] Director: Joshua Medina MD, PhD, STEVE Director: Joshua Medina MD, PhD, STEVE Ordering Provider: HILARIO CABRAL Report Released Date/Time: Feb 29, 2024 01:30 PM Reporting Lab: [address] [address] Performing Lab: [facility] CA IGE TOTAL SERUM 43 kU/L 114 OR LESS Barley IgE <0.10 kU/L Beef IgE <0.10 kU/L Pepper C. annuum IgE <0.10 kU/L Cabbage IgE <0.10 kU/L Carrot IgE <0.10 kU/L Chicken IgE <0.10 kU/L Codfish IgE <0.10 kU/L [place] IgE <0.10 kU/L Crab IgE <0.10 kU/L Egg White IgE <0.10 kU/L Grape IgE <0.10 kU/L Lettuce IgE <0.10 kU/L Milk (Cow) IgE <0.10 kU/L Campbell Recinos IgE <0.10 kU/L Oat IgE <0.10 kU/L Lyman IgE <0.10 kU/L Peanut IgE <0.10 kU/L Potato IgE <0.10 kU/L Pork IgE <0.10 kU/L Rice IgE <0.10 kU/L [place]hel IgE <0.10 kU/L Shrimp IgE <0.10 kU/L Soybean IgE <0.10 kU/L Tomato IgE <0.10 kU/L Tuna IgE <0.10 kU/L Wheat IgE <0.10 kU/L Feb 29, 2024 01:31 PM [facility] QUANTIFERON (TUC/LB) BLOOD Specimen T ype: BLOOD Comment: A Negative result does not preclude the possibility of M. tuberculosis infection or tuberculosis disease: false-negative results can be due to the stage of infection (e.g., specimen obtained prior to the development of cellular immune response or other immunological variables). Ordering Provider: HILARIO CABRAL Report Released Date/Time: Feb 29, 2024 01:30 PM Reporting Lab: [address] [place] [address] Performing Lab: [address] [address] QFT-Quantiferon Negative Negative QFT-NIL control 0.0619 [IU]/mL QFT-TB1 antigen 0.0000 [IU]/mL QFT-TB2 antigen 0.0080 [IU]/mL QFT-Mitogen control 9.9381 [IU]/mL Feb 29, 2024 01:31 PM [facility] HEMOGLOBIN A1C BLOOD Specimen Type: B LOOD Comment: [id number] Values obtained from A1C measurements can vary. For typical A1C assays, a reported value of 7.0 could actually be between 6.72 and 7.28 if measured by a reference method. A reported value of 9.0 could actually be between 8.73 and 9.27. Ref: https://ngsp.org/CAPdata.asp Ordering Provider: HILARIO CABRAL Report Released Date/Time: Feb 29, 2024 01:30 PM Reporting Lab: [address] [place] [address] Performing Lab: [address] [place] [address] HEMOGLOBIN A1C 5.8 4.4-6.4 Feb 29, 2024 01:31 PM [facility] HEPATITIS C AB PANEL SERUM Specimen T ype: SERUM Comment: Since Total PSA value is considered truly negative, confirmatory Free PSA assay is not indicated. Ordering Provider: HILARIO CABRAL Report Released Date/Time: Feb 29, 2024 01:30 PM Reporting Lab: [address] [place] [address] Performing Lab: [address] [address] HEPATITIS C ANTIBODY NEGATIVE <Negative Feb 29, 2024 01:31 PM [facility] CBC & DIFF BLOOD Specimen Type: BLOOD No comment entered. Ordering Provider: HILARIO CABRAL Report Released Date/Time: Feb 29, 2024 01:30 PM Reporting Lab: [address] [address] Performing Lab: [address] [address] WBC 7.0 10*3/uL 3.5-10.6 RBC 4.40 10*6/uL 4.40-5.90 HGB 13.8 g/dL 13.0-18.0 HCT 41.4 40.0-52.0 MCV 94.1 fL 80.0-100.0 MCH 31.4 pg 26.0-34.0 MCHC 33.3 g/dL 32.0-36.0 PLT 184 10*3/uL 150-440 MPV 9.5 fL 9.0-13.0 RBC Distribution Width CV 13.5 11.0-1 5.0 Absolute Neutrophils 3.70 10*3/uL 2.24-6 .46 Absolute Lymphocytes 2.25 10*3/uL 0.73-3 .44 Absolute Monocytes 0.66 10*3/uL 0.25-0.9 7 Absolute Eosinophils 0.30 10*3/uL 0.01-0 .57 Absolute Basophils 0.03 10*3/uL 0.01-0.1 0 Absolute Immature Granulocytes 0.04 10*3/uL 0.00-0.07 Feb 29, 2024 01:31 PM [facility] VITAMIN D (25-OH VITAMIN D) SCREEN PLASMA Specimen Type: PLASMA No comment entered. Ordering Provider: HILARIO CABRAL Report Released Date/Time: Feb 29, 2024 01:30 PM Reporting Lab: [address] [address] Performing Lab: [address] [address] VITAMIN D (25-OH VITAMIN D) SCREEN 24.2 ng/mL L 30.0-60.0 Feb 29, 2024 01:31 PM [facility] TSH W/REFLEX FT4 PLASMA Specimen Type: PLASMA Comment: eGFR CKD-EPI eGFR calculated using the 2020 BHW-NGU-vbfeytieyo equation; units of measure are mL/min/1.73m~2. eGFR can only be interpreted if creatinine is in steady state and is not valid in patients with acute kidney injury and in patients on dialysis. CKD is diagnosed based on abnormalities of kidney structure or function, present for >3 months, with implications for health and disease.CKD is classified and stage based on cause, eGFR and albuminuria, quantified as urine albumin to creatinine ratio. eGFR staging of CKD: Stage G1 eGFR >90 mL/min/1.73m~2. Stage G2 eGFR 60-89 mL/min/1.73m~2. Stage G3a eGFR 45-59 mL/min/1.73m~2. Stage G3b eGFR 30-44 mL/min/1.73m~2. Stage G4 eGFR 15-29 mL/min/1.73m~2. Stage G5 eGFR <15 mL/min/1.73m~2. Ordering Provider: HILARIO CABRAL Report Released Date/Time: Feb 29, 2024 01:30 PM Reporting Lab: [address] [address] Performing Lab: [address] [address] TSH 1.246 u[IU]/mL 0.500-5.000 Feb 29, 2024 01:31 PM [facility] PSA /Reflex Free PSA SERUM Specimen T ype: SERUM Comment: Since Total PSA value is considered truly negative, confirmatory Free PSA assay is not indicated. Ordering Provider: HILARIO CABRAL Report Released Date/Time: Feb 29, 2024 01:30 PM Reporting Lab: [address] [address] Performing Lab: [address] [address] PSAg 2.18 ng/mL 0.01-4.00 Feb 29, 2024 01:31 PM [facility] LIPID STUDY (MUST BE FASTING) PLASMA S pecimen Type: PLASMA Comment: eGFR CKD-EPI eGFR calculated using the 2020 WMT-FML-fybaqgoktr equation; units of measure are mL/min/1.73m~2. eGFR can only be interpreted if creatinine is in steady state and is not valid in patients with acute kidney injury and in patients on dialysis. CKD is diagnosed based on abnormalities of kidney structure or function, present for >3 months, with implications for health and disease.CKD is classified and stage based on cause, eGFR and albuminuria, quantified as urine albumin to creatinine ratio. eGFR staging of CKD: Stage G1 eGFR >90 mL/min/1.73m~2. Stage G2 eGFR 60-89 mL/min/1.73m~2. Stage G3a eGFR 45-59 mL/min/1.73m~2. Stage G3b eGFR 30-44 mL/min/1.73m~2. Stage G4 eGFR 15-29 mL/min/1.73m~2. Stage G5 eGFR <15 mL/min/1.73m~2. Ordering Provider: HILARIO CABRAL Report Released Date/Time: Feb 29, 2024 01:30 PM Reporting Lab: [address] [address] Performing Lab: [address] [place] [address] CHOLESTEROL 186 mg/dL 145-200 TRIGLYCERIDE 68 mg/dL 47-150 HDL 49 mg/dL 40-60 LDL-ABBY 123 mg/dL 0-130 Feb 29, 2024 01:31 PM [facility] COMPREHENSIVE METABOLIC PANEL PLASMA S pecimen Type: PLASMA Comment: eGFR CKD-EPI eGFR calculated using the 2020 JIG-LWZ-nuqmrjahni equation; units of measure are mL/min/1.73m~2. eGFR can only be interpreted if creatinine is in steady state and is not valid in patients with acute kidney injury and in patients on dialysis. CKD is diagnosed based on abnormalities of kidney structure or function, present for >3 months, with implications for health and disease.CKD is classified and stage based on cause, eGFR and albuminuria, quantified as urine albumin to creatinine ratio. eGFR staging of CKD: Stage G1 eGFR >90 mL/min/1.73m~2. Stage G2 eGFR 60-89 mL/min/1.73m~2. Stage G3a eGFR 45-59 mL/min/1.73m~2. Stage G3b eGFR 30-44 mL/min/1.73m~2. Stage G4 eGFR 15-29 mL/min/1.73m~2. Stage G5 eGFR <15 mL/min/1.73m~2. Ordering Provider: HILARIO CABRAL Report Released Date/Time: Feb 29, 2024 01:30 PM Reporting Lab: [facility] [address] [facility] [address] Performing Lab: [facility] [address] [facility] [address] BUN 15 mg/dL 7-20 GLUCOSE 98 mg/dL 70-100 SODIUM 140 mmol/L 135-145 POTASSIUM 4.1 mmol/L 3.5-5.0 CHLORIDE 108 mmol/L 98-110 tCO2 24 mmol/L 18-29 CALCIUM 9.1 mg/dL 8.4-10.4 PROTEIN 7.2 g/dL 6.4-8.5 ALBUMIN 4.0 g/dL 3.5-5.1 BILIRUBIN, TOTAL 1.4 mg/dL H 0.2-1.0 ALKALINE PHOSPHATASE 84 U/L 53-128 AST 26 U/L 10-40 ALT 27 U/L 10-35 ANION GAP 8.0 meq/L L 9.0-18.0 Creatinine 0.93 mg/dL 0.72-1.25 eGFR (CKD-EPI) 88 mL/min/{1.73_m2} L >90 Vital Signs: All taken on the encounter date This section contains inpatient and outpatient Vital Signs collected on the date of the Encounter. Date/Time Temperature Pulse Blood Pressure Respiratory Rate SP02 Pain Height Weight Body Mass Index Source Feb 05, 2024 09:13 PM 86 127/73 18 97 [facility] Feb 05, 2024 08:10 PM 97.9 114 180/81 20 97 10 210.3 34 [facility] Social History: Smoking Status (Most current) and Tobacco Use (All prior to encounter date) This section includes the most current, and the historical, smoking and tobacco- related health factors from the [place] facility where the Encounter took place. Current Smoking Status This section includes the most current smoking, or tobacco-related health factor, from the [place] facility where the Encounter took place. Date/Time Current Smoking Status Gabriella calvillo Jan 04, 2017 03:31 PM CURRENT TOBACCO USER [facility] Tobacco Use History This section includes a history of the smoking, or tobacco-related health factors, that were collected on or before the date of the Encounter. The data comes from the [place] facility where the Encounter took place. Date/Time Smoking Status/Tobacco Use Comment F acility Jan 04, 2017 03:31 PM TOB INFO ON NON-VA STOP SMOKING CLINIC [facility] Jan 04, 2017 03:31 PM TOBACCO OFFERED PT MEDS (PROVIDE R) [facility] May 31, 2011 09:24 AM QUIT TOBACCO IN THE LAST 12 OCTAVIO [facility] Advance Directives: All historical and current Section Date Range: From patient's date of to the date document was created. This section includes ALL of a patient's completed or amended [place] Advance and Rescinded Directives. The entries below indicate that a directive exists for the patient, but an actual copy is not included with this document. The data comes from all [place] facilities. Date Advance Directives Provider Source Jun 13, 2023 ADVANCE DIRECTIVE DISCUSSION VÍCTOR HAMPTON [facility] Jan 16, 2008 ADVANCE DIRECTIVE ROBERTA GARCIA [facility] Jan 16, 2008 ADVANCE DIRECTIVE RALPH DE DIOS [facility] Radiology Reports: +/- 30 days of [...] the Encounter. The data comes from all [place] treatment facilities. 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 Sagittal and coronal reformatted images were provided. FINDINGS: 5 lumbar-type vertebrae are present. Lumbar vertebrae are intact and normal in morphology. There is no evidence of fracture or destructive change. There is mild-moderate spondylosis within the lumbar spine, most notable at L3, and L4. There is moderate disc space narrowing at L2/L3, L3/L4, L4/L5. There is mild disc space narrowing at L1/L2 and L5/S1. Vacuum disc phenomenon are noted at L3/L4, L4/L5 and L5/S1. There is severe central canal stenosis at L2/L3, L3/L4 and L4/L5 and moderate-severe central canal stenosis at L5/S1. The greatest degree of foraminal narrowing is seen at L5/S1 where it is severe on the right and moderate-severe on the left. Mild reduction of the lumbar lordosis. Spinal alignment is maintained within acceptable limits. Visualized portions of the sacrum and sacroiliac joints are intact. Impression: -No acute lumbar vertebral abnormality -Severe central canal stenosis at L2/L3, L3/L4 and L4/L5 and moderate-severe at L5/S1. -The greatest degree of foraminal narrowing is seen at L5/S1 where it is severe on the right and moderate-severe on the left. [facility] Primary Diagnostic Code: Primary Interpreting Staff: LAUREN ARROYO MD, RADIOLOGIST Verified by director career services for LAUREN ARROYO MD /LAUREN DURAN [facility] Feb 05, 2024 08:27 PM KNEE 4 OR MORE VIE WS (LEFT): BURKSROSE MARY KATHY [id number] -1955 M Exm Date: FEB 05, 2024@20:27 Req Phys: TAMIKA TRIVEDI Loc: [facility]/4PM-12M (Re Img Loc: H-MAIN-X Service: Unknown [facility] [place] [address] (Case [id number] COMPLETE) KNEE 4 OR MORE VIEWS (LEFT) (RAD Detailed) CPT:03436 Reason for Study: worsening chronic pain Clinical History: Report Status: Verified Date Reported: FEB 05, 2024 Date Verified: FEB 05, 2024 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 There is no evidence of fracture or destructive change. Prominent enthesophyte is seen at the quadriceps insertion on the patella. There is mild tricompartmental joint space narrowing. Articular alignment is well maintained. Regional soft tissue is grossly normal. Impression: -No acute osseous abnormality. -Mild tricompartmental joint space narrowing. -Prominent enthesophyte at the quadriceps insertion on the patella. [facility] Primary Diagnostic Code: Primary Interpreting Staff: LAUREN ARROYO MD, RADIOLOGIST Verified by director career services for LAUREN ARROYO MD /LAUREN DURAN [facility] Encounter Notes: All associated encounter notes This section contains the clinical notes associated to the Encounter. Date/Time Encounter Note(s) Provider Source Feb 05, 2024 09:34 PM EMERGENCY DEPT DIS CHARGE NOTE: LOCAL TITLE: EMERGENCY DEPT DISCHARGE INSTRUCTIONS STANDARD TITLE: EMERGENCY DEPT DISCHARGE NOTE DATE OF NOTE: FEB 05, 2024@21:34:44 ENTRY DATE: FEB 05, 2024@21:34:44 AUTHOR: RICHELLE ROJAS EXP COSIGNER: URGENCY: STATUS: COMPLETED DISCHARGE INSTRUCTIONS IMPORTANT: [...] instructions below. You were treated today by RICHELLE Rojas MD. [facility] Nurse Advice Call Center: Available 24 hours a day / 7 days a week at [phone] Special Information This Information Is About Your Follow Up Care We recommend that you follow up with your Primary Care Team to have an appointment within the next 2 days. Call to arrange this appointment. Future Appointments Future Appointments List not available This Information Is About Your Illness and Diagnosis KNEE PAIN The knee is prone to [...] more severe symptoms. -any questions or concerns. MEDICINE RENEWAL AND REFILL You need another prescription for your medicine. You will continue on the same medicine. Please follow these instructions: Take this medicine exactly as prescribed. Contact your health care provider as soon as possible if you have any of the following: -any new or more severe symptoms. -any questions or concerns. IMPORTANT MEDICATION INFORMATION -Your medication [...] by health care institutions other than the [place]. Medicines Medication List not available YOU ARE THE MOST IMPORTANT FACTOR IN YOUR RECOVERY. Follow the above instructions carefully. Take your medicines as prescribed. If you do not understand any of your medicines, please ask questions. If you think you may not be able to cotton picker your medicine, please let us know so [...] GO TO THE NEAREST EMERGENCY ROOM /kallie/ Venecia ROJAS MD EMERGENCY DEPT PHYSICIAN Signed: 02/05/2024 21:34 RICHELLE ROJAS [facility] Feb 05, 2024 09:08 PM PHYSICIAN EMERGENC Y DEPT NOTE: LOCAL TITLE: EMERGENCY DEPT PHYSICIAN NOTE STANDARD TITLE: PHYSICIAN EMERGENCY DEPT NOTE DATE OF NOTE: FEB 05, 2024@21:08 ENTRY DATE: FEB 05, 2024@21:08:07 AUTHOR: RICHELLE ROJAS EXP COSIGNER: URGENCY: STATUS: COMPLETED Author: Dr. Venecia Rojas, Emergency Room physician Active Outpatient Medications (excluding Supplies): Active Outpatient Medications Status ======= 1) AMLODIPINE BESYLATE 5MG TAB TAKE ONE [...] ACTIVE MOUTH EVERY MORNING TO PREVENT STROKE Pending Outpatient Medications Status ======= 1) ALBUTEROL 90MCG (CFC-F) 200D ORAL INHL INHALE 2 PENDING INHALATIONS BY MOUTH FOUR TIMES A DAY NEEDED *SHAKE WELL BEFORE USING* 2) AZELASTINE 137MCG/SPRAY 200D NASAL INHL USE 2 SPRAYS PENDING IN EACH NOSTRIL AT BEDTIME 3) FLUTICAS 250/SALMETEROL 50 INHL DISK 60 INHALE 1 PENDING INHALATION BY MOUTH TWICE A DAY *RINSE MOUTH AFTER USE* 4) GABAPENTIN 100MG CAP TAKE ONE CAPSULE BY MOUTH THREE PENDING TIMES A DAY FOR 7 DAYS, THEN TAKE TWO CAPSULES THREE TIMES A DAY FOR 7 DAYS FOLLOW UP WITH PRIMARY CARE FOR FURTHER CARE AND TITRATION 5) METHYLPREDNISOLONE 4MG TAB DOSEPAK,21 TAKE TABLETS BY PENDING MOUTH DIRECTED USE AFTER PREDNISONE IS FINISHED WITH FOOD PER INSTRUCTIONS LOCATED ON BACK OF FOIL PACKAGE 6) POTASSIUM CHLORIDE 10MEQ SA TAB TAKE ONE TABLET BY PENDING MOUTH EVERY DAY FOR POTASSIUM REPLACEMENT 7) TIOTROPIUM 2.5MCG/ACTUAT 60D ORAL INHL INHALE 2 PUFFS PENDING BY MOUTH EVERY MORNING FOR BETTER BREATHING Active Non-VA Medications Status ======= 1) Non-VA AZELASTINE 137MCG/SPRAY 200D NASAL INHL 1 ACTIVE SPRAY IN EACH NOSTRIL EVERY MORNING 2) Non-VA DOXYCYCLINE HYCLATE 100MG CAP 100MG BY MOUTH ACTIVE TWICE A DAY 3) Non-VA METHYLPREDNISOLONE 4MG TAB DOSEPAK,21 TABLETS ACTIVE BY MOUTH DIRECTED 14 Total Medications Active problems - Computerized Problem List is the source for the following: PROBLEM 1. Tobacco use (SNOMED CT 130329319) 2. Allergic rhinitis (SNOMED CT 84356120) 3. Chronic obstructive lung disease 4. Degeneration of cervical intervertebral disc 5. Edema 6. Vitamin D deficiency 7. Gastro-esophageal reflux disease with esophagitis 8. Transient ischemic attack 9. Memory impairment 10. Hypertensive heart disease 11. Hyperlipidemia 12. Secondary hypertension CC: Pt twisted his knee and heard a crack 2 days ago and states worsening pain. Pt denies other symptoms and did not fall. HPI: Patient is presenting with the above complaint as reported to the Triage Nurse. This 68 y/o MALE with multiple chronic medical conditions as listed above including but not limited to allergic rhinitis, chronic obstructive lung disease, gastroesophageal reflux disease with esophagitis, hypertensive heart disease, hyperlipidemia, essential hypertension and tobacco use presents with report of having twisted his knee 2 days ago and the pain has not resolved. In triage he was noted to have heart rate of 114 bpm as he was walking on the knee. In addition blood pressure was noted to be 180/81 in triage but on repeat in the emergency room blood pressure was much improved to 127/73. ROS: Denies N/V/D/F/C/CP/SOB/Rash PE: Vitals: DATE/TIME TEMP PULSE RESP BP PAIN WT (LB) P OX 02/05/24 @ 2113 86 18 127/73 97 02/05/24 @ 2009 97.9 114 20 180/81 10 210.3 97 General: NAD, appearing stated age HEENT: MMM, Non-icteric sclera. Conjunctiva are pink and moist. Lungs: unlabored breathing Cardiac: + S1, S2 Regular Abdomen: NABS Soft Non-tender, Non-distended Ext: No pedal edema Neuro: Speech clear and appropriate. Labs: TEST RESULT ---- ------ Imaging Exam Date/Time 02/05/2024 20:27 Procedure Name KNEE 4 OR MORE VIEWS (LEFT) Impression -No acute osseous abnormality. -Mild tricompartmental joint space narrowing. -Prominent enthesophyte at the quadriceps insertion on the patella. FINDINGS: Osseous structures are intact and normal in morphology. There is no evidence of fracture or destructive change. Prominent enthesophyte is seen at the quadriceps insertion on the patella. There is mild tricompartmental joint space narrowing. Articular alignment is well maintained. Regional soft tissue is grossly normal. A/P: 1. Left knee pain - Wide differential considered and discussed with . Received low-dose Toradol IM injection (after much discussion about choices and side effects/risks) in the ER for the discomfort. [place] wants to continue out- patient management with assigned clinic provider. Reasons to seek an immediate return back to the ER discussed. Discussed ambulation aids such as a cane, long-term management of chronic conditions and medication refills by following up with the primary care provider. Placed the request for to have a post ER within 7-day visit in our clinics. 2. Issue of medication refills - Short-term refill of his medication prescribed. See full list of orders below under orders current. Additional Clinical & Medical Decision Making - including counseling/care coordination as well - Review of coe elements of history and patient examination - Reviewed the progress note, labs and other pertinent elements of care. - Competent to make clinical decision and accepts care plan as presented. He has clinic access. Patient was seen and examined. I discussed the treatment options along with the medication, risks, benefits, alternatives, dosage, precautions, route, frequency and possible adverse effects. Discussed at [facility] home care instructions, including reasons for return visit to the ED. ORDERS/PROCEDURES: [x]XR [x] Results of the above radiographic findings and clinical impressions were discussed. [x] Patient examined, differential diagnosis and treatment options discussed with the patient. [x] Information packed for further education and reading on the topic of todays presentation was provided to . Home instructions, including red flag sxs (prolonged continuation of symptoms, worsening of symptoms) that should bring the patient back to the Emergency Room were discussed. Patients questions were answered. [facility] if worse otherwise follow-up with the primary care provider. Pt understands and agrees to plan/disposition at this time. Patient verbalized understanding of all above and is discharged in stable condition. This is not a SEPSIS admission. NOTE TO PCP Dear PCP Your patient was seen in ED today. The following abnormal tests will need further workup/attention as deemed necessary: 1. Left knee pain 2. History of medication refills Abnormal findings and need for follow up has been communicated directly with Patient and/or family . ED FU ORDERS CURRENT Item Ordered Status Start Date Stop Date ALBUTEROL INHL,ORAL 90MCG/ACTUAT pend INHALE 2 INHALATIONS BY MOUTH FOUR TIMES A DAY NEEDED *SHAKE WELL BEFORE USING* Quantity: 1 Refills: 0 Indication: FOR BRONCHOSPASM TIOTROPIUM RESPIMAT pend 2.5MCG/ACTUATION INHL,ORAL 2.5MCG/ACTUAT INHALE 2 PUFFS BY MOUTH EVERY MORNING FOR BETTER BREATHING Quantity: 1 Refills: 0 Indication: FOR BRONCHOSPASM PREVENTION WITH COPD AZELASTINE INHL,NASAL 137MCG/SPRAY pend USE 2 SPRAYS IN EACH NOSTRIL AT BEDTIME Quantity: 1 Refills: 0 Indication: FOR SEASONAL RUNNY NOSE FLUTICASONE/SALMETEROL 250/50 pend INHL,ORAL FLUTICAS 250/SALMETEROL 50 INHL DISK 60 INHALE 1 INHALATION BY MOUTH TWICE A DAY *RINSE MOUTH AFTER USE* Quantity: 1 Refills: 0 Indication: FOR BETTER BREATHING POTASSIUM CHLORIDE (DELAYED pend RELEASE) TAB,SA 10MEQ TAKE ONE TABLET BY MOUTH EVERY DAY FOR POTASSIUM REPLACEMENT Quantity: 4 Refills: 0 Indication: FOR POTASSIUM REPLACEMENT MethylPREDNISolone DOSEPAK TAB 4MG pend TAKE TABLETS BY MOUTH DIRECTED USE AFTER PREDNISONE IS FINISHED WITH FOOD PER INSTRUCTIONS LOCATED ON BACK OF FOIL PACKAGE Quantity: 1 Refills: 0 Indication: FOR INFLAMMATION GABAPENTIN CAP,ORAL 100MG TAKE 1 pend CAPSULE BY MOUTH THREE TIMES A DAY FOR 7 DAYS THEN TAKE 2 CAPSULES BY MOUTH THREE TIMES A DAY FOR 7 DAYS FOLLOW UP WITH PRIMARY CARE FOR FURTHER CARE AND TITRATION Quantity: 63 Refills: 0 Indication: FOR NEUROPATHIC PAIN hydrALAZINE TAB 10MG PO ONCE pend 02/05/2024 21:08 Indication: FOR BLOOD PRESSURE / HEART KETOROLAC TROMETHAMINE INJ pend 02/05/2024 21:08 15MG/0.5ML IM NOW PRN Available in [place]ud[place] Indication: FOR PAIN KNEE 4 OR MORE VIEWS (LEFT) STAT actv 02/05/2024 Voice electrical linesworker technology ([employer] Kid!) is used for the dictation of this report and sound-alike words might be erroneously placed despite reviewing this report for accuracy. Errors in dictation may reflect use of voice recognition software and not all errors in electrical linesworker may have been detected prior to signing. /es/ F. ROSA MARIA ROJAS MD EMERGENCY DEPT PHYSICIAN Signed: 02/06/2024 05:45 RICHELLE ROJAS [facility] Feb 05, 2024 08:42 PM NURSING NOTE: LOCAL TITLE: EMERGENCY RN CARE NOTE STANDARD TITLE: NURSING NOTE DATE OF NOTE: FEB 05, 2024@20:42 ENTRY DATE: FEB 05, 2024@20:43:15 AUTHOR: REN MAST EXP COSIGNER: URGENCY: STATUS: COMPLETED EMERGENCY DEPARTMENT RN NOTE BRIEF INITIAL ASSESSMENT: INITIAL ED NURSING ASSESSMENT ARRIVAL: Feb@20:43 ren assumes care of patient. CHIEF COMPLAINT: Pt twisted his knee and heard a crack 2 days ago and states worsening pain. Ptdenies other symptoms and did not fall. Completed on Arrival: spO2 NIBP PAIN ASSESSMENT Pain Scale: Numeric Does patient currently have any pain? No SYSTEMS ASSESSMENT: NEUROLOGICAL: Patient is awake, alert, oriented. SKIN: Normal for ethnicity, warm, dry. Oral mucosa is moist and intact. RESPIRATORY: Patient's respirations are even, relaxed and unlabored. MUSCULOSKELETAL: Patient moves all extremities. Reports injury and pain to L knee. NURSING PROCEDURES: 2039-Pt to room. XR done from triage. 2114-Pt not given BP medications, BP WNL. ED provider aware. 2119-PT given toradol as per order in R delt. Awaiting DC paperwork, informed. 2129-DISCHARGE: Patient dc home. Discharge paperwork/[employer] given to patient, advised to f/u with pcp and return to ED for changes in health. Pt verbalized understanding and ambulated out with steady gait. All needs addressed. Patient has all belongings. Sent to lob to wait for dc RX. /kallie/ REN MAST RN Signed: 02/05/2024 21:35 [facility] Feb 05, 2024 08:12 PM NURSING EMERGENCY DEPT TRIAGE NOTE: LOCAL TITLE: EMERGENCY THRILL PERFORMER NOTE STANDARD TITLE: NURSING EMERGENCY DEPT TRIAGE NOTE DATE OF NOTE: FEB 05, 2024@20:12 ENTRY DATE: FEB 05, 2024@20:12:09 AUTHOR: ANNITA HAND EXP COSIGNER: URGENCY: STATUS: COMPLETED Emergency Department/Urgent Care Center Triage Patient age:68 Sex: MALE On arrival, patient was: AMBULATORY and presented and emergent condition as stated below. Patient Wristband applied? Yes Patient has verified information on wristband is correct? Yes No allergy(ies) or New allergy(ies) reported by at this time. Subjective/Chief Complaint: Pt twisted his knee and heard a crack 2 days ago and states worsening pain. Pt denies other symptoms and did not fall. Objective: Pt tachycardic at 114 after walking in pain. Hypertensive 180/81 but did not take his daily blood pressure medication. Fall Assessment: 1. Presented to Emergency Department because of falls? No 2. Age >70: Yes 3. Altered mental status: No 4. Impaired mobility: Yes 5. Nurse Judgment: (bowel/bladder incontinence, diarrhea, urinary frequency/urgency, sensory deficits, leg weakness, orthostatic hypotension, dizziness/vertigo, medications such as diuretics, narcotics, or sedatives). Knee pain is considered a high fall risk High Fall Risk Interventions: Call device within reach Bed in low position Fall education provided The patient is a fall risk. Intervention: see above Vital Signs: Date Vital Measurement Qualifiers 02/05/2024 20:10 Temp F (C) 97.9 (36.6) Tympanic Pulse 114 Respir 20 BP 180/81 Wt lbs (kg)[BMI] 210.3 (95.39)[34*] Pain 10 POx (L/Min)(%) 97 Sepsis IS NOT suspected. Emergency Severity Index (MICHAEL) level Level 4 Current Medications: Active Outpatient Medications (excluding Supplies): Active Outpatient Medications Status ======= 1) AMLODIPINE BESYLATE 5MG TAB TAKE ONE [...] TO PREVENT STROKE Active Non-VA Medications Status ======= 1) Non-VA AZELASTINE 137MCG/SPRAY 200D NASAL INHL 1 ACTIVE SPRAY IN EACH NOSTRIL EVERY MORNING 2) Non-VA DOXYCYCLINE HYCLATE 100MG CAP 100MG BY MOUTH ACTIVE TWICE A DAY 3) Non-VA METHYLPREDNISOLONE 4MG TAB DOSEPAK,21 TABLETS ACTIVE BY MOUTH DIRECTED 7 Total Medications Suicide Screen: [place] Suicide Severity Rating Scale (C-SSRS) screener 1. [...] dry Additional Assessment: Are your immunizations current? No Display of immunizations from this chart: JAN 04, 2017 TDAP Next step in care: Directed to wait in main fariha /kallie/ ANNITA HAND RN Signed: 02/05/2024 20:15 ANNITA HAND [facility]
--- OUTSIDE RECORDS SUMMARY | 2024-02-14 16:22 | XMS_ITS | Encounter Summary ---
Author Name [facility] [place] [facility] [place] [facility] [place] Address [address] [place] [address] Care Team Providers Care It Applications Developer Name Role Phone AMANDEEP PETERS Primary Care Provider Unavailabl e SAMMI ERICKSON Unavailable HILARIO Tran Primary Care Provider Unavailabl e Insurance Providers: [...] PART A May 04, 2019 PART A [id number] BURKS,AN CAT PATIENT MEDICARE (WNR) MEDICARE (M) PART B May 04, 2019 PART B [id number] BURKS,AN CAT PATIENT MEDICARE (WNR) MEDICARE (M) PART A October 02, 2018 PART A [id number] [phone] BURKS,AN CAT PATIENT MEDICARE (WNR) MEDICARE (M) PART B October 02, 2018 PART B [id number] [phone] KIMMIE,ALVARO CAT PATIENT Selected Encounter This section includes the information on record at [place] for the Encounter. Date/Time Encounter Type Encounter Description Reason Provider Source Feb 14, 2024 08:22 PM MEASURE BLOOD OXYGEN LEVEL EMERGENCY DEPT ICD-10-CM M54.32 Sciatica, left side BRAYAN VICTORIA Ana Laura Encounter Template Text not used by [place] Assessments - Encounter Diagnoses This section includes the primary and secondary diagnoses documented for the Encounter. Date/Time Primary/Secondary Diagnosis Diagnosis Name Provider Source Feb 14, 2024 10:28 PM PRIMARY Sciatica, left side BRAYAN VICTORIA [facility] Plan of Treatment: Future Appointments (+ 6 months) and Future Tests (+/- 45 days) The Plan of Treatment section includes future care activities for the patient from all [place] [facility]. This section includes future appointments and future orders which are active, pending or scheduled. Future Appointments This section includes appointments that were scheduled to occur 6 months from the date of the Encounter, up to a maximum of 20 appointments. The data comes from all [place] treatment facilities. Appointment Date/Time Appointment Type Appointme nt Facility Name Feb 27, 2024 07:02 PM AMBULATORY - MEDICINE [place] [facility] Feb 29, 2024 01:30 PM [facility] Mar 06, 2024 01:00 PM AM[facility]ULATORY - REHAB MEDIC[facility] Mar 27, 2024 02:00 PM AMBULATORY - NONE [facility] Apr 02, 2024 01:45 PM [facility] Apr 02, 2024 02:20 PM [facility] Apr 02, 2024 03:45 PM AMBULATORY - REHAB MEDICIN E [facility] Apr 15, 2024 08:30 AM AMBULATORY - NONE [facility] May 22, 2024 07:30 AM [facility] - NONE [facility] May 22, 2024 10:30 AM [facility] Jun 18, 2024 01:00 PM [facility] - [facility] [place] [facility] Jul 05, 2024 06:18 AM AMBULATORY - MEDICINE [facility] [facility] Jul 31, 2024 01:30 PM AM[facility]UL[facility]ORY - [facility]GERY [facility] [facility] Aug 06, 2024 04:15 PM AMBULATORY - REHAB MEDICIN [facility] Aug 08, 2024 01:00 PM AMBULATORY - [facility]ICIN E [facility] Aug 12, 2024 10:45 AM AMBULATORY - RE[facility] MEDICIN E [facility] Lab Results: +/- 30 days of [...] Type Comment Feb 29, 2024 02:30 PM [facility] URINALYSIS URINE Specimen Type: URINE Comment: Microscopic Not Indicated Ordering Provider: HILARIO CABRAL Report Released Date/Time: Feb 29, 2024 01:30 PM Reporting Lab: [address] [address] Performing Lab: [address] [address] URINE COLOR Yellow Yellow URINE SPECIFIC GRAVITY 1.022 1.001-1.0 29 URINE BILIRUBIN Negative mg/dL Negative URINE KETONES Negative mg/dL Negative-Tr rachel UR GLUCOSE Normal mg/dL Normal UR PROTEIN Negative mg/dL URINE PH 5.5 5.0-8.0 CLARITY Clear Clear URINE BLOOD 0.03 mg/dL NITRITE, URINE Negative Negative LEUKOCYTE ESTERASE, URINE Negative URINE UROBILINOGEN Normal mg/dL Normal Feb 29, 2024 01:31 PM [facility] ALLERGEN FOOD PANEL SERUM Specimen Ty pe: SERUM Comment: TEST PERFORMED AT: [facility] [address] [address] Director: Joshua Medina MD, PhD, STEVE TEST PERFORMED AT: [facility] [address] Director: Joshua Medina MD, PhD, STEVE TEST PERFORMED AT: [facility] [address] Director: Joshua Medina MD, PhD, STEVE TEST PERFORMED AT: [facility] [address] [address] Director: Joshua Medina MD, PhD, STEVE TEST PERFORMED AT: [facility] [address] [address] Director: Joshua Medina MD, PhD, STEVE TEST PERFORMED AT: [facility] [address] [address] Director: Joshua Medina MD, PhD, STEVE TEST PERFORMED AT: [address] [address] Director: Joshua Medina MD, PhD, STEVE TEST PERFORMED AT: [address] [address] Director: Joshua Medina MD, PhD, STEVE TEST PERFORMED AT: [address] [address] Director: Joshua Medina MD, PhD, STEVE TEST PERFORMED AT: [address] [address] Director: Joshua Medina MD, PhD, STEVE TEST PERFORMED AT: [address] [address] Director: Joshua Medina MD, PhD, STEVE TEST PERFORMED AT: [address] [address] Director: Joshua Medina MD, PhD, STEVE TEST PERFORMED AT: [address] [address] Director: Joshua Medina MD, PhD, STEVE TEST PERFORMED AT: [address] [address] Director: Joshua Medina MD, PhD, STEVE TEST PERFORMED AT: [address] [address] Director: Joshua Medina MD, PhD, STEVE TEST PERFORMED AT: [address] [address] Director: Joshua Medina MD, PhD, STEVE TEST PERFORMED AT: [address] [address] Director: Joshua Medina MD, PhD, STEVE TEST PERFORMED AT: [facility] [place] [address] Director: Joshua Medina MD, PhD, STEVE TEST PERFORMED AT: [facility] [place] [address] Director: Joshua Medina MD, PhD, STEVE TEST PERFORMED AT: [facility] [place] [address] Director: Joshua Medina MD, PhD, STEVE TEST PERFORMED AT: [facility] [place] [address] Director: Joshua Medina MD, PhD, STEVE TEST PERFORMED AT: [facility] [place] [address] Director: Joshua Medina MD, PhD, STEVE TEST PERFORMED AT: [place] [address] Director: Joshua Medina MD, PhD, STEVE TEST PERFORMED AT: [place] [address] Director: Joshua Medina MD, PhD, STEVE TEST PERFORMED AT: [facility] [address] Director: Joshua Medina MD, PhD, STEVE INTERPRETATION [...] intended for specialist use. TEST PERFORMED AT: [facility] [address] [address] Director: Joshua Medina MD, PhD, STEVE TEST PERFORMED AT: TEST PERFORMED AT: [facility] [address] [address] [place] [address] Director: Joshua Medina MD, PhD, STEVE Director: Joshua Medina MD, PhD, STEVE Ordering Provider: HILARIO CABRAL Report Released Date/Time: Feb 29, 2024 01:30 PM Reporting Lab: [address] [address] Performing Lab: [facility] CA IGE TOTAL SERUM 43 kU/L 114 OR LESS Barley IgE <0.10 kU/L Beef IgE <0.10 kU/L Pepper C. annuum IgE <0.10 kU/L Cabbage IgE <0.10 kU/L Carrot IgE <0.10 kU/L Chicken IgE <0.10 kU/L Codfish IgE <0.10 kU/L [place] IgE <0.10 kU/L Crab IgE <0.10 kU/L Egg White IgE <0.10 kU/L Grape IgE <0.10 kU/L Lettuce IgE <0.10 kU/L Milk (Cow) IgE <0.10 kU/L Wesley Recinos IgE <0.10 kU/L Oat IgE <0.10 kU/L [place] IgE <0.10 kU/L Peanut IgE <0.10 kU/L Potato IgE <0.10 kU/L Pork IgE <0.10 kU/L Rice IgE <0.10 kU/L [place] IgE <0.10 kU/L Shrimp IgE <0.10 kU/L Soybean IgE <0.10 kU/L Tomato IgE <0.10 kU/L Tuna IgE <0.10 kU/L Wheat IgE <0.10 kU/L Feb 29, 2024 01:31 PM [facility] QUANTIFERON (TUC/LB) BLOOD Specimen T ype: BLOOD Comment: A Negative result does not preclude the possibility of M. tuberculosis infection or tuberculosis disease: false-negative results can be due to the stage of infection (e.g., specimen obtained prior to the development of cellular immune response or other immunological variables). Ordering Provider: HILARIO CABRAL Report Released Date/Time: Feb 29, 2024 01:30 PM Reporting Lab: [address] [address] Performing Lab: [facility] [address] [address] QFT-Quantiferon Negative Negative QFT-NIL control 0.0619 [IU]/mL QFT-TB1 antigen 0.0000 [IU]/mL QFT-TB2 antigen 0.0080 [IU]/mL QFT-Mitogen control 9.9381 [IU]/mL Feb 29, 2024 01:31 PM [facility] HEMOGLOBIN A1C BLOOD Specimen Type: B LOOD Comment: [id number] Values obtained from A1C measurements can vary. For typical A1C assays, a reported value of 7.0 could actually be between 6.72 and 7.28 if measured by a reference method. A reported value of 9.0 could actually be between 8.73 and 9.27. Ref: https://ngsp.org/CAPdata.asp Ordering Provider: HILARIO CABRAL Report Released Date/Time: Feb 29, 2024 01:30 PM Reporting Lab: [address] [address] Performing Lab: [address] [address] HEMOGLOBIN A1C 5.8 4.4-6.4 Feb 29, 2024 01:31 PM [facility] HEPATITIS C AB PANEL SERUM Specimen T ype: SERUM Comment: Since Total PSA value is considered truly negative, confirmatory Free PSA assay is not indicated. Ordering Provider: HILARIO CABRAL Report Released Date/Time: Feb 29, 2024 01:30 PM Reporting Lab: [address] [place] [address] Performing Lab: [address] [address] HEPATITIS C ANTIBODY NEGATIVE <Negative Feb 29, 2024 01:31 PM [facility] TSH W/REFLEX FT4 PLASMA Specimen Type: PLASMA Comment: eGFR CKD-EPI eGFR calculated using the 2020 DAP-SNG-nssfwkprah equation; units of measure are mL/min/1.73m~2. eGFR [...] Feb 29, 2024 01:30 PM Reporting Lab: [address] [address] Performing Lab: [address] [address] TSH 1.246 u[IU]/mL 0.500-5.000 Feb 29, 2024 01:31 PM [facility] LIPID STUDY (MUST BE FASTING) PLASMA S pecimen Type: PLASMA Comment: eGFR CKD-EPI eGFR calculated using the 2020 CVJ-ZIF-ddpgsdbokn equation; units of measure are mL/min/1.73m~2. eGFR [...] Feb 29, 2024 01:30 PM Reporting Lab: [address] [address] Performing Lab: [address] [address] CHOLESTEROL 186 mg/dL 145-200 TRIGLYCERIDE 68 mg/dL 47-150 HDL 49 mg/dL 40-60 LDL-ABBY 123 mg/dL 0-130 Feb 29, 2024 01:31 PM [facility] CBC & DIFF BLOOD Specimen Type: BLOOD No comment entered. Ordering Provider: HILARIO CABRAL Report Released Date/Time: Feb 29, 2024 01:30 PM Reporting Lab: [address] [address] Performing Lab: [address] [address] WBC 7.0 10*3/uL 3.5-10.6 RBC 4.40 10*6/uL [...] 10*3/uL 0.00-0.07 Feb 29, 2024 01:31 PM [facility] PSA /Reflex Free PSA SERUM Specimen T ype: SERUM Comment: Since Total PSA value is considered truly negative, confirmatory Free PSA assay is not indicated. Ordering Provider: HILARIO CABRAL Report Released Date/Time: Feb 29, 2024 01:30 PM Reporting Lab: [address] [address] Performing Lab: [address] [address] PSAg 2.18 ng/mL 0.01-4.00 Feb 29, 2024 01:31 PM [facility] VITAMIN D (25-OH VITAMIN D) SCREEN PLASMA Specimen Type: PLASMA No comment entered. Ordering Provider: HILARIO CABRAL Report Released Date/Time: Feb 29, 2024 01:30 PM Reporting Lab: [address] [place] [address] Performing Lab: [address] [address] VITAMIN D (25-OH VITAMIN D) SCREEN 24.2 ng/mL L 30.0-60.0 Feb 29, 2024 01:31 PM [facility] COMPREHENSIVE METABOLIC PANEL PLASMA S pecimen Type: PLASMA Comment: eGFR CKD-EPI eGFR calculated using the 2020 GTP-OSF-xwthngjfcm equation; units of measure are mL/min/1.73m~2. eGFR [...] Feb 29, 2024 01:30 PM Reporting Lab: [address] [address] Performing Lab: [address] [address] BUN 15 mg/dL 7-20 GLUCOSE 98 mg/dL [...] Height Weight Body Mass Index Source Feb 14, 2024 08:24 PM 96.7 99 127/84 18 10 205.04 33 [facility] Social History: Smoking Status (Most current) and Tobacco Use (All prior to encounter date) This section includes the most current, and the historical, smoking and tobacco- related health factors from the [place] facility where the Encounter took place. Current Smoking Status This section includes the most current smoking, or tobacco-related health factor, from the [place] facility where the Encounter took place. Date/Time Current Smoking Status Comment Bautista calvillo Jan 04, 2017 03:31 PM CURRENT TOBACCO USER [facility] Tobacco Use History This section includes a history of the smoking, or tobacco-related health factors, that were collected on or before the date of the Encounter. The data comes from the [place] facility where the Encounter took place. Date/Time Smoking Status/Tobacco Use Comment Geri moore Jan 04, 2017 03:31 PM TOB INFO ON NON-VA STOP SMOKING CLINIC [facility] Jan 04, 2017 03:31 PM TOBACCO OFFERED PT MEDS (PROVIDE R) [facility] May 31, 2011 09:24 AM QUIT TOBACCO IN THE LAST 12 OCTAVIO [facility] Advance Directives: All historical and current Section Date Range: From patient's date of to the date document was created. This section includes ALL of a patient's completed or amended [place] Advance and Rescinded Directives. The entries below indicate that a directive exists for the patient, but an actual copy is not included with this document. The data comes from all [place] facilities. Date Advance Directives Provider Source Jun 13, 2023 ADVANCE DIRECTIVE DISCUSSION VÍCTOR HAMPTON [facility] Jan 16, 2008 ADVANCE DIRECTIVE ROBERTA GARCIA [facility] Jan 16, 2008 ADVANCE DIRECTIVE RALPH DE [facility] Radiology Reports: +/- 30 days of [...] the Encounter. The data comes from all [place] treatment facilities. Date/Time Radiology Report Provider Source Feb 14, 2024 08:[address] LUMBAR SPINE W/ O CONT: KIMMIEROSE MARYBEBETO CHAVEZ [id number] -1955 M Exm Date: FEB 14, 2024@20:53 Req Phys: BRAYAN VICTORIA Loc: [facility]/4PM-12M (Re Img Loc: [facility]-COMPUTED TOMOGRAPHY-X Service: [place] [address] (Case [id number] COMPLETE)CT LUMBAR SPINE W/O CONT (CT Detailed) CPT:08682 Reason for Study: l sciatica Clinical History: Report Status: Verified Date Reported: FEB 14, 2024 Date Verified: FEB 14, 2024 Manufacturing Engineer Supervisor E-Sig: Report: Clinical history: Low back pain [...] the right and moderate-severe on the left. Primary Diagnostic Code: Primary Interpreting Staff: LAUREN ARROYO MD, RADIOLOGIST Verified by surveyor hydrographic for LAUREN ARROYO MD /LAUREN DURAN [facility] Feb 05, 2024 08:27 PM KNEE 4 OR MORE VIE WS (LEFT): BURKSCARLOS AROSE MARY KATHY [id number] -1955 M Exm Date: FEB 05, 2024@20:27 Req Phys: TAMIKA TRIVEDI Loc: [facility]/4PM-12M (Re Img Loc: H-MAIN-X Service: [place] [address] (Case [id number] COMPLETE) KNEE 4 OR MORE VIEWS (LEFT) (RAD Detailed) CPT:20960 Reason for Study: worsening chronic pain Clinical History: Report Status: Verified Date Reported: FEB 05, 2024 Date Verified: FEB 05, 2024 Manufacturing Engineer Supervisor E-Sig: Report: Clinical history: Worsening chronic knee [...] at the quadriceps insertion on the patella. [facility] Primary Diagnostic Code: Primary Interpreting Staff: LAUREN ARROYO MD, RADIOLOGIST Verified by surveyor hydrographic for LAUREN ARROYO MD /LAUREN DURAN [facility] Encounter Notes: All associated encounter notes This section contains the clinical notes associated to the Encounter. Date/Time Encounter Note(s) Provider Source Feb 14, 2024 08:48 PM PHYSICIAN EMERGENC Y DEPT NOTE: LOCAL TITLE: EMERGENCY DEPT PHYSICIAN NOTE STANDARD TITLE: PHYSICIAN EMERGENCY DEPT NOTE DATE OF NOTE: FEB 14, 2024@20:48 ENTRY DATE: FEB 14, 2024@20:48:40 AUTHOR: BRAYAN VICTORIA COSIGNER: URGENCY: STATUS: COMPLETED Emergency Department Provider Note CC:left back pain HPI: pt seen last week with l knee pain states has been walking differently and now left back pain into leg h/o back pain to get priamry here in March ROS: Gen- no fever or chills, fatigue CV- no CP Resp- no dyspnea, cough Abd- no abdominal pain, N, V, D, blood in stool - no urinary sxs Ext- no swelling, pain Neuro- no parasthesias, focal weakness, headache SOCIAL HX: Active problems - Computerized Problem List is the source for the following: PROBLEM 1. Tobacco use (SNOMED CT 038886103) cigarettes 1 pack every 2 days 2. Allergic rhinitis (SNOMED CT 92740031) 3. Chronic obstructive lung disease 4. Degeneration of cervical intervertebral disc 5. Edema 6. Vitamin D deficiency 7. Gastro-esophageal reflux disease with esophagitis 8. Transient ischemic attack 9. Memory impairment 10. Hypertensive heart disease 11. Hyperlipidemia 12. Secondary hypertension Allergy: BACTRIM OUTPATIENT MEDICATIONS (per [facility] Computer Records): ALBUTEROL 90MCG (CFC-F) 200D ORAL INHL INHALE 2 INHALATIONS BY MOUTH FOUR TIMES A DAY NEEDED FOR AZELASTINE 137MCG/SPRAY 200D NASAL INHL USE 2 SPRAYS IN EACH NOSTRIL AT BEDTIME FOR SEASONAL RUNNY NOSE FLUTICAS 250/SALMETEROL 50 INHL DISK 60 INHALE 1 INHALATION BY MOUTH TWICE A DAY FOR BETTER BREATHING RINSE GABAPENTIN 100MG CAP TAKE ONE CAPSULE BY MOUTH THREE TIMES A DAY FOR 7 DAYS, THEN TAKE TWO METHYLPREDNISOLONE 4MG TAB DOSEPAK,21 TAKE TABLETS BY MOUTH DIRECTED FOR INFLAMMATION USE AFTER POTASSIUM CHLORIDE 10MEQ SA TAB TAKE ONE TABLET BY MOUTH EVERY DAY FOR POTASSIUM REPLACEMENT FOR TIOTROPIUM 2.5MCG/ACTUAT 60D ORAL INHL INHALE 2 PUFFS BY MOUTH EVERY MORNING FOR BRONCHOSPASM PREVENTION WITH CLOPIDOGREL BISULFATE 75MG TAB TAKE ONE TABLET [...] RESP BP PAIN WT (LB) P OX 02/14/24 @ 2023 96.7 99 18 127/84 10 205.04 gen: AA, NAD heent: non-icteric sclera, AT neck: supple without nodes, no JVD, non-tender card: regular, No M, gallop pulm: Clear, no chest wall tenderness abd: S, NT, no masses or hsm, no G/R, nl BS ext: no edema b/l, no cyanosis skin: No acute rashes. neuro: non-focal EKG: XRAY: TEST RESULT ---- ------ ED course: Pt evaluated and placed on java consultant, iv access established, O2 placed. Labs drawn and xray ordered. results gone over w/pt Assessment: sciatica Pt discharged to home at 9:50 Meds: prednisone Instructions: follow with primary in 2 weeks Return to ED if sxs worsen or other acute problems. Pt verbalized understanding of all above and is discharged in stable condition. This is not a SEPSIS admission. NOTE TO PCP Dear PCP Your patient was seen in ED today. The following abnormal tests will need further workup/attention as deemed necessary: 1. 2. Abnormal findings and need for follow up has been communicated directly with Patient and/or family . amy /kallie/ BRAYAN VICTORIA PHYSICIAN Signed: 02/14/2024 21:49 BRAYAN VICTORIA [facility] Feb 14, 2024 08:33 PM NURSING NOTE: LOCAL TITLE: EMERGENCY RN CARE NOTE STANDARD TITLE: NURSING NOTE DATE OF NOTE: FEB 14, 2024@20:33 ENTRY DATE: FEB 14, 2024@20:33:51 AUTHOR: JOSE BROWN EXP COSIGNER: URGENCY: STATUS: COMPLETED EMERGENCY DEPARTMENT RN NOTE BRIEF INITIAL ASSESSMENT: INITIAL ED NURSING ASSESSMENT ARRIVAL: Feb rn assumes care of patient. CHIEF COMPLAINT: pt to ED c/o left knee pain. pt reports that he was recently seen in ED for same and dc w/pain meds but with no relief. Completed on Arrival: PAIN ASSESSMENT Pain Scale: Numeric Does patient currently have any pain? Yes,see triage note SYSTEMS ASSESSMENT: NEUROLOGICAL/MOTOR: Level of Consciousness: Awake Alert Oriented: x 4 Decreased level of consciousness? No Pupils: Size: R: 2mm L: 2mm Equal Round Glascow Coma Scale: Eyes Open: 4 = spontaneously Verbal response: 5 = oriented Motor response: 6 = obeys commands *Total: 15 SKIN: no open wounds noted, no redness/swelling noted MOTOR: lime supervisor intact, pain with movement, ambualted with slow but steady gait 2024: pt to room 2049: pt escorted to ct 2057: pt escorted back ct 2129: report given to Yaritza Farrell RN, care relinquished at this time. /kallie/ JOSE BROWN RN Signed: 02/14/2024 21:33 JOSE BROWN [facility] Feb 14, 2024 08:23 PM NURSING EMERGENCY DEPT TRIAGE NOTE: LOCAL TITLE: EMERGENCY WASTE SPECIALIST NOTE STANDARD TITLE: NURSING EMERGENCY DEPT TRIAGE NOTE DATE OF NOTE: FEB 14, 2024@20:23 ENTRY DATE: FEB 14, 2024@20:23:45 AUTHOR: REFUGIO DUNLAP EXP COSIGNER: URGENCY: STATUS: COMPLETED Emergency Department/Urgent Care Center Triage Patient age:68 Sex: MALE On arrival, patient was: AMBULATORY and presented and emergent condition as stated below. Patient Wristband applied? Yes Patient has verified information on wristband is correct? Yes No allergy(ies) or New allergy(ies) reported by at this time. Subjective/Chief Complaint: Left knee pain x 1 year Objective: Pt declined wheelchair. Fall Assessment: 1. Presented to Emergency Department because of falls? No 2. Age >70: No 3. Altered mental status: No 4. Impaired mobility: Yes 5. Nurse Judgment: (bowel/bladder incontinence, diarrhea, urinary frequency/urgency, sensory deficits, leg weakness, orthostatic hypotension, dizziness/vertigo, medications such as diuretics, narcotics, or sedatives). is considered a high fall risk High Fall Risk Interventions: Other: Declined wheelchair. The patient is a fall risk. Intervention: . Vital Signs: No data available Temperature 96.7 F (35.9 C) Pulse 99 Respirations 18 Blood Pressure 127/84 Pain scale recorded: 10 Pulse Oximetry 98 Room Air Weight 205 lb (93.2 kg) Sepsis IS NOT suspected. Emergency Severity Index (MICHAEL) level Level 4 Current Medications: Active Outpatient Medications (excluding Supplies): Active Outpatient Medications Status 1) ALBUTEROL 90MCG (CFC-F) 200D ORAL INHL INHALE 2 ACTIVE INHALATIONS BY MOUTH FOUR TIMES A DAY NEEDED FOR BRONCHOSPASM *SHAKE WELL BEFORE USING* 2) AMLODIPINE BESYLATE 5MG TAB TAKE ONE TABLET BY MOUTH ACTIVE EVERY DAY FOR HIGH BLOOD PRESSURE 3) ASPIRIN 81MG EC TAB TAKE ONE TABLET BY MOUTH EVERY ACTIVE DAY TO REDUCE YOUR RISK OF STROKE 4) ATORVASTATIN CALCIUM 80MG TAB TAKE ONE TABLET BY ACTIVE MOUTH AT BEDTIME FOR HIGH CHOLESTEROL 5) AZELASTINE 137MCG/SPRAY 200D NASAL INHL USE 2 SPRAYS ACTIVE IN EACH NOSTRIL AT BEDTIME FOR SEASONAL RUNNY NOSE 6) CLOPIDOGREL BISULFATE 75MG TAB TAKE ONE TABLET BY ACTIVE MOUTH EVERY MORNING TO PREVENT STROKE 7) FLUTICAS 250/SALMETEROL 50 INHL DISK 60 INHALE 1 ACTIVE INHALATION BY MOUTH TWICE A DAY FOR BETTER BREATHING *RINSE MOUTH AFTER USE* 8) GABAPENTIN 100MG CAP TAKE ONE CAPSULE BY MOUTH THREE ACTIVE TIMES A DAY FOR 7 DAYS, THEN TAKE TWO CAPSULES THREE TIMES A DAY FOR 7 DAYS FOR NEUROPATHIC PAIN FOLLOW UP WITH PRIMARY CARE FOR FURTHER CARE AND TITRATION 9) METHYLPREDNISOLONE 4MG TAB DOSEPAK,21 TAKE TABLETS BY ACTIVE MOUTH DIRECTED FOR INFLAMMATION USE AFTER PREDNISONE IS FINISHED WITH FOOD PER INSTRUCTIONS LOCATED ON BACK OF FOIL PACKAGE 10) POTASSIUM CHLORIDE 10MEQ SA TAB TAKE ONE TABLET BY ACTIVE MOUTH EVERY DAY FOR POTASSIUM REPLACEMENT FOR POTASSIUM REPLACEMENT 11) TIOTROPIUM 2.5MCG/ACTUAT 60D ORAL INHL INHALE 2 PUFFS ACTIVE BY MOUTH EVERY MORNING FOR BRONCHOSPASM PREVENTION WITH COPD FOR BETTER BREATHING Active Non-VA Medications Status 1) Non-VA AZELASTINE 137MCG/SPRAY 200D NASAL INHL 1 ACTIVE SPRAY IN EACH NOSTRIL EVERY MORNING 2) Non-VA DOXYCYCLINE HYCLATE 100MG CAP 100MG BY MOUTH ACTIVE TWICE A DAY 3) Non-VA METHYLPREDNISOLONE 4MG TAB DOSEPAK,21 TABLETS ACTIVE BY MOUTH DIRECTED 14 Total Medications Suicide Screen: [place] Suicide Severity Rating Scale (C-SSRS) screener 1. [...] to a stretcher in the ED /es/ REFUGIO DUNLAP Registered Nurse Signed: 02/14/2024 20:26 REFUGIO DUNLAP [facility]
--- OUTSIDE RECORDS SUMMARY | 2024-02-27 15:02 | XMS_ITS ---
Author Name [facility] [place] [facility] [place] [facility] [place] Address [address] [place] [address] Care Team Providers Care Reservations Manager Name Role Phone AMANDEEP PETERS Primary [...] PART A May 04, 2019 PART A [id number] KIMMIE,ALVARO ZHENGONY PATIENT MEDICARE (WNR) MEDICARE (M) PART B May 04, 2019 PART B [id number] BURKS,AN CAT PATIENT MEDICARE (WNR) MEDICARE (M) PART A October 02, 2018 PART A [id number] BURKS,AN CAT PATIENT MEDICARE (WNR) MEDICARE (M) PART B October 02, 2018 PART B [id number] [phone] KIMMIE,ALVARO SHELTON PATIENT Selected Encounter This section includes the information on record at [place] for the Encounter. Date/Time Encounter Type Encounter Description Reason Provider Source Feb 27, 2024 07:02 PM NURSING ASSESSMENT/EVALUAT N EMERGENCY DEPT ICD-10-CM Z53.21 Proc/trtmt not crd out d/t pt lv bef seen by [facility] IHE Encounter Template Text not used by [place] Assessments - Encounter Diagnoses This section includes the primary and secondary diagnoses documented for the Encounter. Date/Time Primary/Secondary Diagnosis Diagnosis Name Provider Source Feb 27, 2024 08:55 PM PRIMARY Proc/trtmt not crd out d/t pt lv bef seen by [facility] TRIPP JOSUE [facility] Plan of Treatment: Future Appointments (+ 6 months) and Future Tests (+/- 45 days) The Plan of Treatment section includes future care activities for the patient from all [place] treatmentfacilities. This section includes future appointments and future orders which are active, pending or scheduled. Future Appointments This section includes appointments that were scheduled to occur 6 months from the date of the Encounter, up to a maximum of 20 appointments. The data comes from all [place] treatment facilities. Appointment Date/Time Appointment Type Appointme nt Facility Name Feb 29, 2024 01:30 PM [facility] Mar 06, 2024 01:00 PM AMBULATORY - REHAB MEDICIN E [facility] Mar 27, 2024 02:00 PM [facility] Apr 02, 2024 01:45 [facility], [facility] 02:20 [facility] Apr 02, 2024 03:45 PM [facility]AT[facility] - [facility] MEDICIN [facility] Apr 15, 2024 08:30 AM [facility] NONE [facility] May 22, 2024 07:30 AM AM[facility]UL[facility]ORY - NONE [facility] May 22, 2024 10:30 AM AMBULATORY - NONE [facility] Jun 18, 2024 01:00 PM [facility] Jul 05, 2024 06:18 AM [facility] Jul 31, 2024 01:30 PM [facility] Aug 06, 2024 04:15 PM AMBULATORY - REHAB MEDICIN E [facility] Aug 08, 2024 01:00 PM AMBULAT[facility] Aug 12, 2024 10:45 AM AMBULATORY - REHAB MEDICIN [facility] Aug 19, 2024 10:15 AM [facility] Aug 21, 2024 01:30 PM [facility] Aug 26, 2024 10:45 AM AMBULATORY - REHAB [facility] Lab Results: +/- 30 days of the encounter This section includes the Chemistry and Hematology Lab Results on record with [place] for the patient. Radiology Reports and Pathology Reports are provided separately, in subsequent sections. Lab Results This section contains the Chemistry/Hematology Results that were resulted 30 days before or 30 daysafter the date of the Encounter. Date/Time Source Result Type Result - Unit Interpretation Reference Range Specimen Type Comment Feb 29, 2024 02:30 PM [facility] URINALYSIS URINE Specimen Type: URINE Comment: Microscopic Not Indicated Ordering Provider: HILARIO CABRAL Report Released Date/Time: Feb 29, 2024 01:30 PM Reporting Lab: [address] [address] Performing Lab: [address] [address] URINE COLOR Yellow Yellow URINE SPECIFIC GRAVITY 1.022 1.001-1.0 29 URINE BILIRUBIN Negative mg/dL Negative URINE KETONES Negative mg/dL Negative-Tr rachel UR GLUCOSE Normal mg/dL Normal UR PROTEIN Negative mg/dL URINE PH 5.5 5.0-8.0 CLARITY Clear Clear URINE BLOOD 0.03 mg/dL NITRITE, URINE Negative Negative LEUKOCYTE ESTERASE, URINE Negative URINE UROBILINOGEN Normal mg/dL Normal Feb 29, 2024 01:31 PM [facility] ALLERGEN FOOD PANEL SERUM Specimen Ty pe: SERUM Comment: TEST PERFORMED AT: [facility] [employer] [address] [address] Director: Joshua Medina MD, PhD, STEVE TEST PERFORMED AT: [facility] [employer] [address] [address] Director: Joshua Medina MD, PhD, STEVE TEST PERFORMED AT: [employer] [address] [address] Director: Joshua Medina MD, PhD, STEVE TEST PERFORMED AT: [address] [address] Director: Joshua Medina MD, PhD, STEVE TEST PERFORMED AT: [address] [address] Director: Joshua Medina MD, PhD, STEVE TEST PERFORMED AT: [address] [address] Director: Joshua Medina MD, PhD, STEVE TEST PERFORMED AT: [address] [address] Director: Joshua Medina MD, PhD, STEVE TEST PERFORMED AT: [address] [address] Director: Joshua Medina MD, PhD, STEVE TEST PERFORMED AT: [address] [address] Director: Joshua Medina MD, PhD, STEVE TEST PERFORMED AT: [address] [address] Director: Joshua Medina MD, PhD, STEVE TEST PERFORMED AT: [address] [address] Director: Joshua Medina MD, PhD, STEVE TEST PERFORMED AT: [address] [address] Director: Joshua Medina MD, PhD, STEVE TEST PERFORMED AT: [employer] [address] [address] Director: Joshua Medina MD, PhD, STEVE TEST PERFORMED AT: [employer] [address] [address] Director: Joshua Medina MD, PhD, STEVE TEST PERFORMED AT: [employer] [address] [address] Director: Joshua Medina MD, PhD, STEVE TEST PERFORMED AT: [employer] [address] [address] Director: Joshua Medina MD, PhD, STEVE TEST PERFORMED AT: [address] [address] Director: Joshua Medina MD, PhD, STEVE TEST PERFORMED AT: [address] [address] Director: Joshua Medina MD, PhD, STEVE TEST PERFORMED AT: [address] [address] Director: Joshua Medina MD, PhD, STEVE TEST PERFORMED AT: [facility] [employer] [address] [address] Director: Joshua Medina MD, PhD, STEVE TEST PERFORMED AT: [employer] [place] [address] Director: Joshua Medina MD, PhD, STEVE TEST PERFORMED AT: [address] [address] Director: Joshua Medina MD, PhD, STEVE TEST PERFORMED AT: [address] [address] Director: Joshua Medina MD, PhD, STEVE TEST PERFORMED AT: [employer] [address] [address] Director: Joshua Medina MD, PhD, STEVE TEST PERFORMED AT: [employer] [address] [address] Director: Joshua Medina MD, PhD, STEVE INTERPRETATION [...] intended for specialist use. TEST PERFORMED AT: [employer] [facility] [address] [address] Director: Joshua Medina MD, PhD, STEVE TEST PERFORMED AT: TEST PERFORMED AT: [employer] [facility] [employer] [address] [address] [place] [address] Director: Joshua Medina MD, PhD, STEVE Director: Joshua Medina MD, PhD, STEVE Ordering Provider: HILARIO CABRAL Report Released Date/Time: Feb 29, 2024 01:30 PM Reporting Lab: [address] [address] Performing Lab: [facility] CA IGE TOTAL SERUM 43 kU/L 114 OR LESS Barley IgE <0.10 kU/L Beef IgE <0.10 kU/L Pepper C. annuum IgE <0.10 kU/L Cabbage IgE <0.10 kU/L Carrot IgE <0.10 kU/L Chicken IgE <0.10 kU/L Codfish IgE <0.10 kU/L [place] IgE <0.10 kU/L Crab IgE <0.10 kU/L Egg White IgE <0.10 kU/L Grape IgE <0.10 kU/L Lettuce IgE <0.10 kU/L Milk (Cow) IgE <0.10 kU/L [place] IgE <0.10 kU/L Oat IgE <0.10 kU/L Rhea IgE <0.10 kU/L Peanut IgE <0.10 kU/L Potato IgE <0.10 kU/L Pork IgE <0.10 kU/L Rice IgE <0.10 kU/L [place] IgE <0.10 kU/L Shrimp IgE <0.10 kU/L Soybean IgE <0.10 kU/L Tomato IgE <0.10 kU/L Tuna IgE <0.10 kU/L Wheat IgE <0.10 kU/L Feb 29, 2024 01:31 PM [facility] QUANTIFERON (TUC/LB) BLOOD Specimen T ype: BLOOD Comment: A Negative result does not preclude the possibility of M. tuberculosis infection or tuberculosis disease: false-negative results can be due to the stage of infection (e.g., specimen obtained prior to the development of cellular immune response or other immunological variables). Ordering Provider: HILARIO CABRAL Report Released Date/Time: Feb 29, 2024 01:30 PM Reporting Lab: [address] [place] [address] Performing Lab: [facility] [address] [address] QFT-Quantiferon Negative Negative QFT-NIL control 0.0619 [IU]/mL QFT-TB1 antigen 0.0000 [IU]/mL QFT-TB2 antigen 0.0080 [IU]/mL QFT-Mitogen control 9.9381 [IU]/mL Feb 29, 2024 01:31 PM [facility] HEMOGLOBIN A1C BLOOD Specimen Type: B LOOD Comment: [id number] Values obtained from A1C measurements can vary. For typical A1C assays, a reported value of 7.0 could actually be between 6.72 and 7.28 if measured by a reference method. A reported value of 9.0 could actually be between 8.73 and 9.27. Ref: https://ngsp.org/CAPdata.asp Ordering Provider: HILARIO CABRAL Report Released Date/Time: Feb 29, 2024 01:30 PM Reporting Lab: [address] [place] [address] Performing Lab: [address] [place] [address] HEMOGLOBIN A1C 5.8 4.4-6.4 Feb 29, 2024 01:31 PM [facility] HEPATITIS C AB PANEL SERUM Specimen T ype: SERUM Comment: Since Total PSA value is considered truly negative, confirmatory Free PSA assay is not indicated. Ordering Provider: HILARIO CABRAL Report Released Date/Time: Feb 29, 2024 01:30 PM Reporting Lab: [address] [place] [address] Performing Lab: [address] [place] [address] HEPATITIS C ANTIBODY NEGATIVE <Negative Feb 29, 2024 01:31 PM [facility] LIPID STUDY (MUST BE FASTING) PLASMA S pecimen Type: PLASMA Comment: eGFR CKD-EPI eGFR calculated using the 2020 JOW-MGF-gcdscokeea equation; units of measure are mL/min/1.73m~2. eGFR [...] Feb 29, 2024 01:30 PM Reporting Lab: [address] [address] Performing Lab: [address] [address] CHOLESTEROL 186 mg/dL 145-200 TRIGLYCERIDE 68 mg/dL 47-150 HDL 49 mg/dL 40-60 LDL-ABBY 123 mg/dL 0-130 Feb 29, 2024 01:31 PM [facility] CBC & DIFF BLOOD Specimen Type: BLOOD No comment entered. Ordering Provider: HILARIO CABRAL Report Released Date/Time: Feb 29, 2024 01:30 PM Reporting Lab: [address] [address] Performing Lab: [address] [address] WBC 7.0 10*3/uL 3.5-10.6 RBC 4.40 10*6/uL [...] 10*3/uL 0.00-0.07 Feb 29, 2024 01:31 PM [facility] COMPREHENSIVE METABOLIC PANEL PLASMA S pecimen Type: PLASMA Comment: eGFR CKD-EPI eGFR calculated using the 2020 OIG-AML-bdoplupngr equation; units of measure are mL/min/1.73m~2. eGFR [...] Feb 29, 2024 01:30 PM Reporting Lab: [address] [address] Performing Lab: [address] [address] BUN 15 mg/dL 7-20 GLUCOSE 98 mg/dL [...] 0.72-1.25 eGFR (CKD-EPI) 88 mL/min/{1.73_m2} L >90 Feb 29, 2024 01:31 PM [facility] TSH W/REFLEX FT4 PLASMA Specimen Type: PLASMA Comment: eGFR CKD-EPI eGFR calculated using the 2020 MDZ-TQU-itxllqcilx equation; units of measure are mL/min/1.73m~2. eGFR [...] Feb 29, 2024 01:30 PM Reporting Lab: [address] [address] Performing Lab: [address] [address] TSH 1.246 u[IU]/mL 0.500-5.000 Feb 29, 2024 01:31 PM [facility] VITAMIN D (25-OH VITAMIN D) SCREEN PLASMA Specimen Type: PLASMA No comment entered. Ordering Provider: HILARIO CABRAL Report Released Date/Time: Feb 29, 2024 01:30 PM Reporting Lab: [address] [address] Performing Lab: [address] [address] VITAMIN D (25-OH VITAMIN D) SCREEN 24.2 ng/mL L 30.0-60.0 Feb 29, 2024 01:31 PM [facility] PSA /Reflex Free PSA SERUM Specimen T ype: SERUM Comment: Since Total PSA value is considered truly negative, confirmatory Free PSA assay is not indicated. Ordering Provider: HILARIO CABRAL Report Released Date/Time: Feb 29, 2024 01:30 PM Reporting Lab: [address] [place] [address] Performing Lab: [address] [place] [address] PSAg 2.18 ng/mL 0.01-4.00 Vital Signs: All taken on the encounter date This section contains inpatient and outpatient Vital Signs collected on the date of the Encounter. Date/Time Temperature Pulse Blood Pressure Respiratory Rate SP02 Pain Height Weight Body Mass Index Source Feb 27, 2024 07:19 PM 97.5 109 154/110 18 98 6 66.0 206.6 33 [facility] Social History: Smoking Status (Most current) and Tobacco Use (All prior to encounter date) This section includes the most current, and the historical, smoking and tobacco- related health factors from the [place] facility where the Encounter took place. Current Smoking Status This section includes the most current smoking, or tobacco-related health factor, from the [place] facility where the Encounter took place. Date/Time Current Smoking Status Comment Bautista calvillo Jan 04, 2017 03:31 PM CURRENT TOBACCO USER [facility] Tobacco Use History This section includes a history of the smoking, or tobacco-related health factors, that were collected on or before the date of the Encounter. The data comes from the [place] facility where the Encounter took place. Date/Time Smoking Status/Tobacco Use Comment F acbaron Jan 04, 2017 03:31 PM TOB INFO ON NON-VA STOP SMOKING CLINIC [facility] Jan 04, 2017 03:31 PM TOBACCO OFFERED PT MEDS (PROVIDE R) [facility] May 31, 2011 09:24 AM QUIT TOBACCO IN THE LAST 12 [facility] Advance Directives: All historical and current Section Date Range: From patient's date of to the date document was created. This section includes ALL of a patient's completed or amended [place] Advance and Rescinded Directives. The entries below indicate that a directive exists for the patient, but an actual copy is not included with this document. The data comes from all [place] facilities. Date Advance Directives Provider Source Jun 13, 2023 ADVANCE DIRECTIVE DISCUSSION VÍCTOR [facility] Jan 16, 2008 ADVANCE DIRECTIVE ROBERTA GARCIA [facility] Jan 16, 2008 ADVANCE DIRECTIVE RALPH DE DIOS [facility] Radiology Reports: +/- 30 days of the [...] the Encounter. The data comes from all [place] treatment facilities. Date/Time Radiology Report Provider Source Mar 27, 2024 01:23 PM KNEE 4 OR MORE VIE WS (LEFT): ROSE MARY BURKS [facility] [id number] -1955 M Ex Date: MAR 27, 2024@13:23 Req Phys: HILARIO CABRAL Loc: ADMINISTRATIVE CONTACT (Req'g Img Loc: H-MAIN-X Service: Unknown [facility] [place] [address] (Case [id number] COMPLETE)KNEE 4 OR MORE VIEWS (LEFT) (RAD Detailed) CPT:13672 Reason for Study: djd Clinical History: 68 y.o male w/ lumbar and L knee pain, keep falling when walks Report Status: Verified Date Reported: MAR 27, 2024 Date Verified: MAR 27, 2024 Biometrics Specialist E-Sig: Report: EXAM: KNEE 4 OR MORE VIEWS (RIGHT), KNEE 4 OR MORE VIEWS (LEFT) INDICATION: djd COMPARISON: x-ray dated 02/05/2024, 11/19/2018 TECHNIQUE: 3 views of the left and 3 views of the right knee Impression: FINDINGS/IMPRESSION: LEFT: Normal alignment. No acute fracture. Mild insertional quadriceps enthesopathy. Mild lateral patellar tilt. Moderate to severe joint space narrowing the medial compartment. Mild joint space narrowing in the lateral compartment. Findings similar compared to 02/05/2024. RIGHT: Normal alignment. No acute fracture. Mild insertional quadriceps enthesopathy. Mild to moderate joint space narrowing in the medial compartment with jdwp-xf-iwppgzep joint space narrowing in the lateral compartment. Stable exam compared to 2019. [facility] Primary Diagnostic Code: Primary Interpreting Staff: HOUSTON MILLER, RADIOLOGIST Verified by director enterprise data architecture for HOUSTON MILLER /MIREYA [facility] Mar 27, 2024 01:23 PM KNEE 4 OR MORE VIE WS (RIGHT): ROSE MARY BURKS [id number] -1955 Ex Date: MAR 27, 2024@13:23 Req Phys: HILARIO CABRAL Pat Loc: ADMINISTRATIVE CONTACT (Req'g Img Loc: H-MAIN-X Service: [place] [address] (Case [id number] COMPLETE)KNEE 4 OR MORE VIEWS (RIGHT) (RAD Detailed) CPT:50733 Reason for Study: djd Clinical History: 68 y.o male w/ lumbar and L knee pain, keep falling when walks Report Status: Verified Date Reported: MAR 27, 2024 Date Verified: MAR 27, 2024 Biometrics Specialist E-Sig: Report: EXAM: KNEE 4 OR MORE VIEWS (RIGHT), KNEE 4 OR MORE VIEWS (LEFT) INDICATION: djd COMPARISON: x-ray dated 02/05/2024, 11/19/2018 TECHNIQUE: 3 views of the left and 3 views of the right knee Impression: FINDINGS/IMPRESSION: LEFT: Normal alignment. No acute fracture. Mild insertional quadriceps enthesopathy. Mild lateral patellar tilt. Moderate to severe joint space narrowing the medial compartment. Mild joint space narrowing in the lateral compartment. Findings similar compared to 02/05/2024. RIGHT: Normal alignment. No acute fracture. Mild insertional quadriceps enthesopathy. Mild to moderate joint space narrowing in the medial compartment with repu-cy-pycjvvtl joint space narrowing in the lateral compartment. Stable exam compared to 2019. [facility] Primary Diagnostic Code: Primary Interpreting Staff: HOUSTON MILLER, RADIOLOGIST Verified by director enterprise data architecture for HOUSTON RIOSTHUY [facility] Mar 27, 2024 01:22 PM HIP 2-3 VIEWS (LEF T): ROSE MARY BURKS [id number] -1955 M Exm Date: MAR 27, 2024@13:22 Req Phys: HILARIO CABRAL Loc: [facility] SW PACT PSYCHOLOGIST MILITARY PERSONNEL 6 (Req'g Loc) Img Loc: H-MAIN-X Service: [place] [address] (Case [id number] COMPLETE)HIP 2-3 VIEWS (LEFT) (RAD Detailed) CPT:75077 Reason for Study: Pain and falls Clinical History: Pain and falls Report Status: Verified Date Reported: MAR 27, 2024 Date Verified: MAR 27, 2024 Biometrics Specialist E-Sig: Report: EXAM: HIP 2-3 VIEWS (LEFT) INDICATION: Pain and falls COMPARISON: no prior imaging studies available for comparison at the time of dictation TECHNIQUE: 2 views of the left hip Impression: FINDINGS/IMPRESSION: Normal alignment is maintained the left hip. No acute left hip fracture. Mild degenerative changes of the left hip. Insertional enthesopathy at the left greater trochanter. Visualized pelvic bones are intact. No evidence of osteonecrosis of the left femoral head. [facility] Primary Diagnostic Code: Primary Interpreting Staff: HOUSTON MILLER RADIOLOGIST Verified by director enterprise data architecture for HOUSTON RENEA [facility] Mar 27, 2024 12:50 PM LDCT LUNG CANCER S CREENING: ROSE MARY BURKS [id number] -1955 M Exm Date: MAR 27, 2024@12:50 Req Phys: MARIANNA,SOTA Pat Loc: [facility] SW PACT PSYCHOLOGIST MILITARY PERSONNEL 6 (Req'g Loc) Img Loc: [facility]-COMPUTED TOMOGRAPHY-X [facility] [place] [address] (Case [id number] COMPLETE)LDCT LUNG CANCER SCREENING (CT Detailed) CPT:34305 Reason for Study: lung cancer screening Clinical History: Vet was on the lung cancer screening , last chest CT WAS 01/02/2023, HE MOVED TO [place], JUST MOVED BACK HERE NOW. Report Status: Verified Date Reported: MAR 28, 2024 Date Verified: MAR 28, 2024 Biometrics Specialist E-Sig: Report: Clinical Information: 68-year-old male presenting for annual repeat CT. . Comparison CT Scans: 18 January 2023 Description: CT examination of the entire thorax was performed at low-dose CT settings. Images were obtained at 1 mm slice thickness. Multiplanar reconstructions, coronal and axial MIPS were performed at the CT console. CTDIvol Mean: 2.5 mGy---DLP: 109.79 mGy.cm---Effective Dose: 1.5 mSv Lung nodules: No nodules detected. Other lung findings: Emphysema: None Pleura: . Coronary Artery Calcifications: Minimal in left main; None in left anterior descending; None in circumflex; None in right coronary. The Visual Coronary Artery Calcium (CAC) Score is 1. Aortic Calcifications: Minimal. Cardiac Findings: There is no pericardial effusion. The heart is normal in size. Vascular: Widest main pulmonary artery diameter is 24 mm. Widest ascending aortic diameter at the same level is 32 mm. Mediastinum: No newly enlarged lymph nodes. The thyroid gland is normal in appearance. Abdomen: Small calcification in the lateral limb of the right adrenal gland. Small-volume cholelithiasis. Probable hepatic steatosis. Osseous Structures: No acute abnormalities. Impression: 1.No nodules detected 2.Emphysema: None. 3.The Visual Coronary Artery Calcium (CAC) Score is 1. Recommendations: Follow-up CT to be obtained in 12 months References: Recommendations for nodules and other findings are detailed in the I-ELCAP Protocol. A summary and the full I-ELCAP protocol can be viewed at: [email or web address].org/protocols Ordinal SCORE AGATSTON SCORE RISK RECOMMENDATIONS* 0 0 Very low Healthy lifestyle. 1 - 3 1-100 Mild to moderately increased Healthy lifestyle; Moderate statin; ASA 4 - 12 >100 Moderate to severely increased Healthy lifestyle; Very intensive statin + second drug as needed; ASA; Consider functional testing to r/o obstruction; Aggressive BP lowering; Referral to software development analyst or preventive pharmacy director 1. Di Anguiano, Delroy MAURICE, Conrad Aguirre, et al. Ordinal scoring of coronary artery calcifications on low-dose CT scans of the chest is predictive of from cardiovascular disease. Radiology. 2010; 257: 541-8. 2. Fermin Castellanos MD, Delroy MAURICE, et al. Coronary artery calcification on low-dose computed tomography: comparison of Agatston and Ordinal Scores. Clinical imaging. 2015; 39: 799-802. *3. Expert Work Group Members. 2016 SCCT/STR Guidelines for Coronary Artery Calcium Scoring of Noncontrast Noncardiac CT Scans. A report of the Society of Cardiovascular Computed Tomography / Society of Thoracic Radiology. [facility] Primary Diagnostic Code: LUNGRADS 2: BENIGN APPEARANCE OR BEHAVIOR Primary Interpreting Staff: ANDREW SAMS MD, RADIOLOGIST Verified by director enterprise data architecture for ANDREW SAMS MD /ANDREW LIRIANO [facility] Feb 14, 2024 08:[address] LUMBAR SPINE W/ O CONT: KIMMIEROSE MARY KATHY [id number] -1955 M Exm Date: FEB 14, 2024@20:53 Req Phys: BRAYAN VICTORIA Loc: [facility]Y DEPT/4PM-12M (Re Img Loc: [facility]-COMPUTED TOMOGRAPHY-X Service: [place] [address] (Case [id number] COMPLETE)CT LUMBAR SPINE W/O CONT (CT Detailed) CPT:77066 Reason for Study: l sciatica Clinical History: Report Status: Verified Date Reported: FEB 14, 2024 Date Verified: FEB 14, 2024 Biometrics Specialist E-Sig: Report: Clinical history: Low back pain [...] the right and moderate-severe on the left. [facility] Primary Diagnostic Code: Primary Interpreting Staff: LAUREN ARROYO MD, RADIOLOGIST Verified by director enterprise data architecture for LAUREN ARROYO MD /LAUREN DURAN [facility] Feb 05, 2024 08:27 PM KNEE 4 OR MORE VIE WS (LEFT): ROSE MARY BURKS KATHY [id number] -1955 M Exm Date: FEB 05, 2024@20:27 Req Phys: TAMIKA TRIVEDI Pat Loc: [facility]/4PM-12M (Re Img Loc: H-MAIN-X Service: Unknown [facility] [place] [address] (Case [id number] COMPLETE) KNEE 4 OR MORE VIEWS (LEFT) (RAD Detailed) CPT:72377 Reason for Study: worsening chronic pain Clinical History: Report Status: Verified Date Reported: FEB 05, 2024 Date Verified: FEB 05, 2024 Biometrics Specialist E-Sig: Report: Clinical history: Worsening chronic knee [...] at the quadriceps insertion on the patella. [facility] Primary Diagnostic Code: Primary Interpreting Staff: LAUREN ARROYO MD, RADIOLOGIST Verified by director enterprise data architecture for LAUREN ARROYO MD /LAUREN DURAN [facility] Encounter Notes: All associated encounter notes This section contains the clinical notes associated to the Encounter. Date/Time Encounter Note(s) Provider Source Feb 27, 2024 07:29 PM NURSING NOTE: LOCAL TITLE: EMERGENCY RN CARE NOTE STANDARD TITLE: NURSING NOTE DATE OF NOTE: FEB 27, 2024@19:29 ENTRY DATE: FEB 27, 2024@19:29:59 AUTHOR: BERNADINE MARCOS EXP COSIGNER: URGENCY: STATUS: COMPLETED EMERGENCY DEPARTMENT RN NOTE BRIEF INITIAL ASSESSMENT: INITIAL ED NURSING ASSESSMENT ARRIVAL: Feb@19:30 Hanane BSN,RN. assumes care of patient. CHIEF COMPLAINT: Pt c/o pain with L knee pain. States pain has gotten worse.Pt states he was in process of having to get referred to orhto, but his PCP has been treating for the pain only. Pt states he has fallen 3 times recently due to his knee giving out. Completed on Arrival: spO2 NIBP PAIN ASSESSMENT Pain Scale: Numeric Does patient currently have any pain? Yes Chronic Yes Site location: L knee Quality: (aching, burning, cramping, dull, sharp, shooting, stabbing, throbbing, tender) aching, throbbing, burning Pain level: 9 Onset/Duration: (how long have you had your pain): chronic Pattern: (comes and goes, nightly, when breathing, etc): comes and goes TREATMENT PRIOR TO ARRIVAL: None SYSTEMS ASSESSMENT: NEUROLOGICAL/MOTOR: Level of Consciousness: Awake Alert Oriented: x 4 Decreased level of consciousness? No Glascow Coma Scale: Eyes Open: 4 = spontaneously Verbal response: 5 = oriented Motor response: 6 = obeys commands *Total: 15 Motor deficit: No - (Indicates NO Motor/Movement Deficits and NO Motor Strength Deficits) RESPIRATORY: Artificial Airway: No Breath sounds: Appearence: Unlabored Breath Sounds Equal? Yes Breath Sounds Clear? Yes, clear to all lobes bilaterally Is a Cough present? No CARDIOVASCULAR: Patient placed on youth nutritional monitor? No Heart sounds: S1/S2 Heart rhythm: Regular Pulses: Right radial: +3 Left radial: +3 Right dorsalis pedis: +3 Left dorsalis pedis: +3 Capillary refill: < 3 seconds GI: WNL : WNL L knee appears swollen. Pt c/o severe pain. Pt states he has fallen 3 times recently. PT waiting for provider. 2039: Pt called staff to room. Pt upset that provider has not been in yet to see him. Pt informed that provider should be into evaluate him shortly. 2044: Pt LWOT. Informed spot nurse he was leaving. Ambulated from ER. /kallie/ BERNADINE MARCOS RN Signed: 02/27/2024 20:51 BERNADINE MARCOS [facility] Feb 27, 2024 07:20 PM NURSING EMERGENCY DEPT TRIAGE NOTE: LOCAL TITLE: EMERGENCY [facility] TECHNICAL ARCHITECT NOTE STANDARD TITLE: NURSING EMERGENCY DEPT TRIAGE NOTE DATE OF NOTE: FEB 27, 2024@19:20 ENTRY DATE: FEB 27, 2024@19:21:10 AUTHOR: RANDALL CONTRERAS COSIGNER: URGENCY: STATUS: COMPLETED EMERGENCY [facility] TECHNICAL ARCHITECT NOTE Has ADDENDA Emergency Department/Urgent Care Center Triage Patient age:68 Sex: MALE On arrival, patient was: AMBULATORY and presented and emergent condition as stated below. Patient Wristband applied? Yes Patient has verified information on wristband is correct? Yes No allergy(ies) or New allergy(ies) reported by at this time. Subjective/Chief Complaint: left leg pain, has been seen multiple times for same issue and recieved meds but states it has not improved Objective: Fall Assessment: 1. Presented to Emergency Department because of falls? No 2. Age >70: No 3. Altered mental status: No 4. Impaired mobility: No 5. Nurse Judgment: (bowel/bladder incontinence, diarrhea, urinary frequency/urgency, sensory deficits, leg weakness, orthostatic hypotension, dizziness/vertigo, medications such as diuretics, narcotics, or sedatives). is not considered a high fall risk The patient is not a fall risk. Vital Signs: Date Vital Measurement Qualifiers 02/27/2024 19:19 Temp F (C) 97.5 (36.4) Tympanic Pulse 109 Respir 18 BP 154/110 Ht in (cm) 66.0 (167.64) Wt lbs (kg)[BMI] 206.6 (93.71)[33*] Pain 6 POx (L/Min)(%) 98 Sepsis IS NOT suspected. Emergency Severity Index (MICHAEL) level Level 4 Current Medications: Active Outpatient Medications (excluding Supplies): Active Outpatient Medications Status ======= 1) ALBUTEROL 90MCG [...] FOR POTASSIUM REPLACEMENT FOR POTASSIUM REPLACEMENT 11) PREDNISONE 20MG TAB TAKE THREE TABLETS BY MOUTH EVERY ACTIVE DAY FOR INFLAMMATION 12) TIOTROPIUM 2.5MCG/ACTUAT 60D ORAL INHL INHALE 2 [...] TAB DOSEPAK,21 TABLETS ACTIVE BY MOUTH DIRECTED 15 Total Medications Suicide Screen: [place] Suicide Severity Rating Scale (C-SSRS) screener 1. [...] Taken to a stretcher in the ED /kallie/ RANDALL CONTRERAS RN Signed: 02/27/2024 19:23 02/27/2024 ADDENDUM STATUS: COMPLETED Pt came to check in window I have been in that room for an hour and a half and I haven't been seen. I'm going home. Pt left amb with steady gait; unwilling to stay to speak to /kallie/ RYANN LONG, MIREYA Emergency Room RN Signed: 02/27/2024 20:38 RANDALL CONTRERAS [facility]
--- OUTSIDE RECORDS SUMMARY | 2024-02-29 07:44 | XMS_ITS | Encounter Summary ---
Author Name [facility] [facility] [place] Address [address] [place] [address] Care Team Providers Care Senior Reactor Operator Name Role Phone AMANDEEP PETERS Primary Care Provider Unavailabl e SAMMI ERICKSON Unavailable Unavailable HILARIO CABRAL Primary Care Provider [...] PART A May 04, 2019 PART A [id number] KIMMIE,ALVARO SHELTON PATIENT MEDICARE (WNR) MEDICARE (M) PART B May 04, 2019 PART B [id number] BURKS,AN CAT PATIENT MEDICARE (WNR) MEDICARE (M) PART A October 02, 2018 PART A [id number] BURKS,ALVARO ZHENGONY PATIENT MEDICARE (WNR) MEDICARE (M) PART B October 02, 2018 PART B [id number] KIMMIE,ALVARO SHELTON PATIENT Selected Encounter This section includes the information on record at [place] for [place]counter. Date/Time Encounter Type Encounter Description Reason Pro vider Source Feb 29, 2024 11:44 AM Outpatient Encounter ADMIN PAT ACTIVTIES (MASNONCT) IHE Encounter Template Text not used by [place] Plan of Treatment: Future Appointments (+ 6 months) and Future Tests (+/- 45 days) The Plan of Treatment section includes future care activities for the [facility] [place] [facility] This section includes future appointments and future orders which are active, pending or scheduled. Future Appointments This section includes appointments that were scheduled to occur 6 months from the date of the Encounter, up to a maximum of 20 appointments. The data comes from all [place] treatment facilities. Appointment Date/Time Appointment Type Appointme nt Facility Name Mar 06, 2024 01:00 PM AMBULATORY - REHAB MEDICIN E [facility] Mar 27, 2024 02:00 PM AMBULATORY - NONE [facility] Apr 02, 2024 01:45 PM [facility] Apr 02, 2024 02:20 PM [facility] Apr 02, 2024 03:45 PM AMBULATORY - REHAB MEDICIN E [facility] Apr 15, 2024 08:30 AM AMBULATORY - NONE [facility] May 22, 2024 07:30 AM AMBULATORY - NONE [facility] May 22, 2024 10:30 AM AMBULATORY - NONE [facility] Jun 18, 2024 01:00 PM [facility] Jul 05, 2024 06:18 AM [facility] Jul 31, 2024 01:30 PM [facility] Aug 06, 2024 04:15 PM AMBULATORY - REHAB MEDICIN E [facility] Aug 08, 2024 01:00 PM AMBULATORY - REHAB MEDICIN E [facility] Aug 12, 2024 10:45 AM AMBULATORY - REHAB MEDICIN E [facility] Aug 19, 2024 10:15 AM AMBULATORY - REHAB MEDICIN E [facility] Aug 21, 2024 01:30 PM AMBULATORY - REHAB MEDICIN E [facility] Aug 26, 2024 10:45 AM AMBULATORY - REHAB MEDICIN E [facility] Aug 28, 2024 09:30 AM AMBULATORY - REHAB MEDICIN E [facility] Lab Results: +/- 30 days of the encounter This section includes the Chemistry and Hematology Lab Results on record with [place] for the patient. Radiology Reports and Pathology Reports are provided separately, in subsequent sections. Lab Results This section contains the Chemistry/Hematology Results that were resulted 30 days before or 30 daysafter the date of the Encounter. Date/Time Source Result Type Result - Unit Interpretation Reference Range Specimen Type Comment Feb 29, 2024 02:30 PM [facility] URINALYSIS URINE Specimen Type: URINE Comment: Microscopic Not Indicated Ordering Provider: HILARIO CABRAL Report Released Date/Time: Feb 29, 2024 01:30 PM Reporting Lab: [address] [address] Performing Lab: [address] [address] URINE COLOR Yellow Yellow URINE SPECIFIC GRAVITY 1.022 1.001-1.0 29 URINE BILIRUBIN Negative mg/dL Negative URINE KETONES Negative mg/dL Negative-Tr rachel UR GLUCOSE Normal mg/dL Normal UR PROTEIN Negative mg/dL URINE PH 5.5 5.0-8.0 CLARITY Clear Clear URINE BLOOD 0.03 mg/dL NITRITE, URINE Negative Negative LEUKOCYTE ESTERASE, URINE Negative URINE UROBILINOGEN Normal mg/dL Normal Feb 29, 2024 01:31 PM [facility] ALLERGEN FOOD PANEL SERUM Specimen Ty pe: SERUM Comment: TEST PERFORMED AT: [place] [id number] Director: Joshua Medina MD, PhD, STEVE TEST PERFORMED AT: [facility] [address] Director: Joshua Medina MD, PhD, STEVE TEST PERFORMED AT: [employer] [address] [address] Director: Joshua Medina MD, PhD, STEVE TEST PERFORMED AT: [facility] [address] Director: Joshua Medina MD, PhD, STEVE TEST PERFORMED AT: [facility] [address] Director: Joshua Medina MD, PhD, STEVE TEST PERFORMED AT: [facility] [address] [place] [address] Director: Joshua Medina MD, PhD, STEVE TEST PERFORMED AT: [address] [address] Director: Joshua Medina MD, PhD, STEVE TEST PERFORMED AT: [address] [address] Director: Joshua Medina MD, PhD, STEVE TEST PERFORMED AT: [address] [address] Director: Joshua Medina MD, PhD, STEVE TEST PERFORMED AT: [address] [address] Director: Joshua Medina MD, PhD, STEVE TEST PERFORMED AT: [address] [address] Director: Joshua Medina MD, PhD, STEVE TEST PERFORMED AT: [address] [address] Director: Joshua Medina MD, PhD, STEVE TEST PERFORMED AT: [address] [address] Director: Joshua Medina MD, PhD, STEVE TEST PERFORMED AT: [address] [address] Director: Joshua Medina MD, PhD, STEVE TEST PERFORMED AT: [address] [address] Director: Joshua Medina MD, PhD, STEVE TEST PERFORMED AT: [address] [address] Director: Joshua Medina MD, PhD, STEVE TEST PERFORMED AT: [address] [address] Director: Joshua Medina MD, PhD, STEVE TEST PERFORMED AT: [facility] [employer] [address] Director: Joshua Medina MD, PhD, STEVE TEST PERFORMED AT: [facility] [address] Director: Joshua Medina MD, PhD, STEVE TEST PERFORMED AT: [address] Director: Joshua Medina MD, PhD, STEVE TEST PERFORMED AT: [employer] [facility] [address] Director: Joshua Medina MD, PhD, STEVE TEST PERFORMED AT: [facility] [employer] [address] Director: Joshua Medina MD, PhD, STEVE TEST PERFORMED AT: [address] Director: Joshua Medina MD, PhD, STEVE TEST PERFORMED AT: [facility] [address] Director: Joshua Medina MD, PhD, STEVE TEST PERFORMED AT: [facility] [address] Director: Joshua Medina MD, PhD, STEVE [...] intended for specialist use. TEST PERFORMED AT: [place] [address] Director: Joshua Medina MD, PhD, STEVE TEST PERFORMED AT: TEST PERFORMED AT: [facility] [id number] [place] [address] [place] [address] Director: Joshua Medina MD, PhD, STEVE Director: Joshua Medina MD, PhD, STEVE Ordering Provider: HILARIO CABRAL Report Released Date/Time: Feb 29, 2024 01:30 PM Reporting Lab: [address] [address] Performing Lab: [facility] CA IGE TOTAL SERUM 43 kU/L 114 OR LESS Barley IgE <0.10 kU/L Beef IgE <0.10 kU/L Pepper C. annuum IgE <0.10 kU/L Cabbage IgE <0.10 kU/L Carrot IgE <0.10 kU/L Chicken IgE <0.10 kU/L Codfish IgE <0.10 kU/L [place] IgE <0.10 kU/L Crab IgE <0.10 kU/L Egg White IgE <0.10 kU/L Grape IgE <0.10 kU/L Lettuce IgE <0.10 kU/L Milk (Cow) IgE <0.10 kU/L [place] Recinos IgE <0.10 kU/L Oat IgE <0.10 kU/L [place] IgE <0.10 kU/L Peanut IgE <0.10 kU/L Potato IgE <0.10 kU/L Pork IgE <0.10 kU/L Rice IgE <0.10 kU/L [place] IgE <0.10 kU/L Shrimp IgE <0.10 kU/L Soybean IgE <0.10 kU/L Tomato IgE <0.10 kU/L Tuna IgE <0.10 kU/L Wheat IgE <0.10 kU/L Feb 29, 2024 01:31 PM [facility] QUANTIFERON (TUC/LB) BLOOD Specimen T ype: BLOOD Comment: A Negative result does not preclude the possibility of M. tuberculosis infection or tuberculosis disease: false-negative results can be due to the stage of infection (e.g., specimen obtained prior to the development of cellular immune response or other immunological variables). Ordering Provider: HILARIO CABRAL Report Released Date/Time: Feb 29, 2024 01:30 PM Reporting Lab: [facility] [address] [facility] [address] Performing Lab: [facility] [address] [address] QFT-Quantiferon Negative Negative QFT-NIL control 0.0619 [IU]/mL QFT-TB1 antigen 0.0000 [IU]/mL QFT-TB2 antigen 0.0080 [IU]/mL QFT-Mitogen control 9.9381 [IU]/mL Feb 29, 2024 01:31 PM [facility] HEMOGLOBIN A1C BLOOD Specimen Type: B LOOD Comment: [id number] Values obtained from A1C measurements can vary. For typical A1C assays, a reported value of 7.0 could actually be between 6.72 and 7.28 if measured by a reference method. A reported value of 9.0 could actually be between 8.73 and 9.27. Ref: https://ngsp.org/CAPdata.asp Ordering Provider: HILARIO CABRAL Report Released Date/Time: Feb 29, 2024 01:30 PM Reporting Lab: [address] [address] Performing Lab: [address] [address] HEMOGLOBIN A1C 5.8 4.4-6.4 Feb 29, 2024 01:31 PM [facility] HEPATITIS C AB PANEL SERUM Specimen T ype: SERUM Comment: Since Total PSA value is considered truly negative, confirmatory Free PSA assay is not indicated. Ordering Provider: HILARIO CABRAL Report Released Date/Time: Feb 29, 2024 01:30 PM Reporting Lab: [address] [place] [address] Performing Lab: [address] [address] HEPATITIS C ANTIBODY NEGATIVE <Negative Feb 29, 2024 01:31 PM [facility] LIPID STUDY (MUST BE FASTING) PLASMA S pecimen Type: PLASMA Comment: eGFR CKD-EPI eGFR calculated using the 2020 HVV-AXG-aikcvhaepe equation; units of measure are mL/min/1.73m~2. eGFR [...] Feb 29, 2024 01:30 PM Reporting Lab: [address] [address] Performing Lab: [address] [address] CHOLESTEROL 186 mg/dL 145-200 TRIGLYCERIDE 68 mg/dL 47-150 HDL 49 mg/dL 40-60 LDL-ABBY 123 mg/dL 0-130 Feb 29, 2024 01:31 PM [facility] CBC & DIFF BLOOD Specimen Type: BLOOD No comment entered. Ordering Provider: HILARIO CABRAL Report Released Date/Time: Feb 29, 2024 01:30 PM Reporting Lab: [address] [address] Performing Lab: [address] [address] WBC 7.0 10*3/uL 3.5-10.6 RBC 4.40 10*6/uL [...] 10*3/uL 0.00-0.07 Feb 29, 2024 01:31 PM [facility] COMPREHENSIVE METABOLIC PANEL PLASMA S pecimen Type: PLASMA Comment: eGFR CKD-EPI eGFR calculated using the 2020 GMM-EYM-igtnpghumq equation; units of measure are mL/min/1.73m~2. eGFR [...] Feb 29, 2024 01:30 PM Reporting Lab: [address] [address] Performing Lab: [address] [address] BUN 15 mg/dL 7-20 GLUCOSE 98 mg/dL [...] L >90 Feb 29, 2024 01:31 PM [facility] TSH W/REFLEX FT4 PLASMA Specimen Type: PLASMA Comment: eGFR CKD-EPI eGFR calculated using the 2020 DQB-GUE-xsxumoauvb equation; units of measure are mL/min/1.73m~2. eGFR [...] Feb 29, 2024 01:30 PM Reporting Lab: [address] [address] Performing Lab: [address] [address] TSH 1.246 u[IU]/mL 0.500-5.000 Feb 29, 2024 01:31 PM [facility] VITAMIN D (25-OH VITAMIN D) SCREEN PLASMA Specimen Type: PLASMA No comment entered. Ordering Provider: HILARIO CABRAL Report Released Date/Time: Feb 29, 2024 01:30 PM Reporting Lab: [address] [address] Performing Lab: [address] [address] VITAMIN D (25-OH VITAMIN D) SCREEN 24.2 ng/mL L 30.0-60.0 Feb 29, 2024 01:31 PM [facility] PSA /Reflex Free PSA SERUM Specimen T ype: SERUM Comment: Since Total PSA value is considered truly negative, confirmatory Free PSA assay is not indicated. Ordering Provider: HILARIO CABRAL Report Released Date/Time: Feb 29, 2024 01:30 PM Reporting Lab: [address] [address] Performing Lab: [address] [address] PSAg 2.18 ng/mL 0.01-4.00 Social History: Smoking Status (Most current) and Tobacco Use (All prior to encounter date) This section includes the most current, and the historical, smoking and tobacco- related health factors from the [place] facility where the Encounter took place. Current Smoking Status This section includes the most current smoking, or tobacco-related health factor, from the [place] facility where the Encounter took place. Date/Time Current Smoking Status Comment Bautista ity Jan 04, 2017 03:31 PM CURRENT TOBACCO USER [facility] Tobacco Use History This section includes a history of the smoking, or tobacco-related health factors, that were collected on or before the date of the Encounter. The data comes from the [place] facility where the Encounter took place. Date/Time Smoking Status/Tobacco Use Comment F acility Jan 04, 2017 03:31 PM TOB INFO ON NON-VA STOP SMOKING CLINIC [facility] Jan 04, 2017 03:31 PM TOBACCO OFFERED PT MEDS (PROVIDE R) [facility] May 31, 2011 09:24 AM QUIT TOBACCO IN THE LAST 12 OCTAVIO [facility] Advance Directives: All historical and current Section Date Range: From patient's date of to the date document was created. This section includes ALL of a patient's completed or amended [place] Advance and Rescinded Directives. The entries below indicate that a directive exists for the patient, but an actual copy is not included with this document. The data comes from all [place] facilities. Date Advance Directives Provider Source Jun 13, 2023 ADVANCE DIRECTIVE DISCUSSION VÍCTOR [facility] Jan 16, 2008 ADVANCE DIRECTIVE [facility] Jan 16, 2008 ADVANCE DIRECTIVE SANJUANA DE DIOSN Kai [facility] Radiology Reports: +/- 30 days of [...] the Encounter. The data comes from all [place] treatment facilities. Date/Time Radiology Report Provider Source Mar 27, 2024 01:23 PM KNEE 4 OR MORE VIE WS (LEFT): BURKS,ROSE MARYBEBETO CHAVEZ [id number] -1955 M Ex Date: MAR 27, 2024@13:23 Req Phys: HILARIO CABRAL Loc: ADMINISTRATIVE CONTACT (Req'g Img Loc: H-MAIN-X Service: [place] [address] (Case [id number] COMPLETE)KNEE 4 OR MORE VIEWS (LEFT) (RAD Detailed) CPT:13865 Reason for Study: djd Clinical History: 68 y.o male w/ lumbar and L knee pain, keep falling when walks Report Status: Verified Date Reported: MAR 27, 2024 Date Verified: MAR 27, 2024 Pier Hand E-Sig: Report: EXAM: KNEE 4 OR MORE [...] space narrowing in the medial compartment with qooc-mk-mqlaqkkz joint space narrowing in the lateral compartment. Stable exam compared to 2019. Primary Diagnostic Code: Primary Interpreting Staff: HOUSTON MILLER, RADIOLOGIST Verified by filter press operator for HOUSTONDAVID MILLER /MIREYA MILLERFORMERLY [facility] Mar 27, 2024 01:23 PM KNEE 4 OR MORE VIE WS (RIGHT): ROSE MARY BURKS [id number] -1955 M Exm Date: MAR 27, 2024@13:23 Req Phys: HILARIO CABRAL Loc: ADMINISTRATIVE CONTACT (Req'g Img Loc: H-MAIN-X Service: [place] [address] (Case [id number] COMPLETE)KNEE 4 OR MORE VIEWS (RIGHT) (RAD Detailed) CPT:82431 Reason for Study: djd Clinical History: 68 y.o male w/ lumbar and L knee pain, keep falling when walks Report Status: Verified Date Reported: MAR 27, 2024 Date Verified: MAR 27, 2024 Pier Hand E-Sig: Report: EXAM: KNEE 4 OR MORE [...] space narrowing in the medial compartment with gvwd-kj-unvytjch joint space narrowing in the lateral compartment. Stable exam compared to 2019. Primary Diagnostic Code: Primary Interpreting Staff: HOUSTON MILLER RADIOLOGIST Verified by filter press operator for HOUSTONDAVID MILLER /MIREYA BLANCATHUYFORMERLY [facility] Mar 27, 2024 01:22 PM HIP 2-3 VIEWS (LEF T): ROSE MARY BURKS [id number] -1955 M Exm Date: MAR 27, 2024@13:22 Req Phys: MARIANNAFAN BobDAVID Pat Loc: [facility] SW PACT INGOT HEADER 6 (Req'g Loc) Img Loc: H-MAIN-X Service: [place] [address] (Case [id number] COMPLETE)HIP 2-3 VIEWS (LEFT) (RAD Detailed) CPT:79774 Reason for Study: Pain and falls Clinical History: Pain and falls Report Status: Verified Date Reported: MAR 27, 2024 Date Verified: MAR 27, 2024 Pier Hand E-Sig: Report: EXAM: HIP 2-3 VIEWS (LEFT) [...] of osteonecrosis of the left femoral head. Primary Diagnostic Code: Primary Interpreting Staff: HOUSTON MILLER, RADIOLOGIST Verified by filter press operator for HOUSTON MILLER /HOUSTON ANGUIANO [facility] Mar 27, 2024 12:50 PM LDCT LUNG CANCER S CREENING: ROSE MARY BURKS [id number] -1955 M Exm Date: MAR 27, 2024@12:50 Req Phys: FAN CABRALDAVID Pat Loc: [facility] SW PACT INGOT HEADER 6 (Req'g Loc) Img Loc: [facility]-COMPUTED TOMOGRAPHY-X Service: [place] [address] (Case [id number] COMPLETE)LDCT LUNG CANCER SCREENING (CT Detailed) CPT:43747 Reason for Study: lung cancer screening Clinical History: Vet was on the lung cancer screening , last chest CT WAS 01/02/2023, HE MOVED TO [place], JUST MOVED BACK HERE NOW. Report Status: Verified Date Reported: MAR 28, 2024 Date Verified: MAR 28, 2024 Pier Hand E-Sig: Report: Clinical Information: 68-year-old male presenting [...] r/o obstruction; Aggressive BP lowering; Referral to carburetor rebuilder or preventive fisheries enforcement officer 1. Di Anguiano, Delroy MAURICE, Conrad D, et al. Ordinal scoring of coronary artery [...] Computed Tomography / Society of Thoracic Radiology. Primary Diagnostic Code: LUNGRADS 2: BENIGN APPEARANCE OR BEHAVIOR Primary Interpreting Staff: ANDREW SAMS MD, RADIOLOGIST Verified by filter press operator for ANDREW SAMS MD /ANDREW LIRIANO [facility] Feb 14, 2024 08:[address] LUMBAR SPINE W/ O CONT: ROSE MARY BURKS [id number] -1955 M Exm Date: FEB 14, 2024@20:53 Req Phys: BRAYAN VICTORIA Loc: [facility]/4PM-12M (Re Img Loc: [facility]-COMPUTED TOMOGRAPHY-X Service: [place] [address] (Case [id number] COMPLETE)CT LUMBAR SPINE W/O CONT (CT Detailed) CPT:00411 Reason for Study: l sciatica Clinical History: Report Status: Verified Date Reported: FEB 14, 2024 Date Verified: FEB 14, 2024 Pier Hand E-Sig: Report: Clinical history: Low back pain [...] Staff: LAUREN ARROYO MD, RADIOLOGIST Verified by filter press operator for LAUREN ARROYO MD /LAUREN DURAN [facility] Feb 05, 2024 08:27 PM KNEE 4 OR MORE VIE WS (LEFT): ROSE MARY BURKS [id number] -1955 M Exm Date: FEB 05, 2024@20:27 Req Phys: TAMIKA TRIVEDI Loc: [facility]/4PM-12M (Re Img Loc: H-MAIN-X Service: [place] [address] (Case [id number] COMPLETE) KNEE 4 OR MORE VIEWS (LEFT) (RAD Detailed) CPT:52623 Reason for Study: worsening chronic pain Clinical History: Report Status: Verified Date Reported: FEB 05, 2024 Date Verified: FEB 05, 2024 Pier Hand E-Sig: Report: Clinical history: Worsening chronic knee [...] at the quadriceps insertion on the patella. Primary Diagnostic Code: Primary Interpreting Staff: LAUREN ARROYO MD, RADIOLOGIST Verified by filter press operator for LAUREN ARROYO MD /LAUREN DURAN [facility] Encounter Notes: All associated encounter notes This section contains the clinical notes associated to the Encounter. Date/Time Encounter Note(s) Provider Source Feb 29, 2024 11:44 AM TRAVELING/RELOCATI NG NOTE: LOCAL TITLE: TRAVELING COORDINATION NOTE STANDARD TITLE: TRAVELING/RELOCATING NOTE DATE OF NOTE: FEB 29, 2024@11:44 ENTRY DATE: FEB 29, 2024@11:44:35 AUTHOR: DAVID CASTRO EXP COSIGNER: URGENCY: STATUS: COMPLETED UNSUCCESSFUL ATTEMPT TO REACH ; TO [facility] [id number]. /kallie/ DAVID CASTRO LPN Income Tax Auditor Signed: 02/29/2024 11:46 DAVID CASTRO [facility]
--- OUTSIDE RECORDS SUMMARY | 2024-02-29 08:09 | XMS_ITS | Encounter Summary ---
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 Date/Time Encounter Type Encounter Description Reason Pro vider Source Feb 29, 2024 12:09 PM Outpatient Encounter ADMIN PAT ACTIVTIES (MASNONCT) IHE Encounter Template Text not used by [place] Plan of Treatment: Future Appointments (+ 6 months) and Future Tests (+/- 45 days) The Plan of Treatment section includes future care activities for the patient [facility] [place] [facility] This section includes future appointments [...] 01:00 PM AMBULATORY - REHAB MEDICIN E [facility] Mar 27, 2024 02:00 PM AMBULATORY - NONE [facility] Apr 02, 2024 01:45 PM [facility]ULATORY [facility]ICINE [facility] Apr 02, 2024 02:20 PM [facility] Apr 02, 2024 03:45 PM AMBULATORY - REHAB MEDICIN E [facility] Apr 15, 2024 08:30 AM AMBULATORY - NONE [facility] May 22, 2024 07:30 AM AMBULATORY - NONE [facility] May 22, 2024 10:30 AM AMBULATORY - NONE [facility] Jun 18, 2024 01:00 PM [facility] Jul 05, 2024 06:18 AM [facility] Jul 31, 2024 01:30 PM [facility] Aug 06, 2024 04:15 PM AMBULATORY - REHAB MEDICIN E [facility] Aug 08, 2024 01:00 PM AMBULATORY - REHAB MEDICIN E [facility] Aug 12, 2024 10:45 AM AMBULATORY - REHAB MEDICIN E [facility] Aug 19, 2024 10:15 AM AMBULATORY - REHAB MEDICIN E [facility] Aug 21, 2024 01:30 PM AMBULATORY - REHAB MEDICIN E [facility] Aug 26, 2024 10:45 AM AMBULATORY - REHAB MEDICIN E [facility] Aug 28, 2024 09:30 AM AMBULATORY - REHAB MEDICIN E [facility] Lab Results: +/- 30 days of the [...] Type Comment Feb 29, 2024 02:30 PM [facility] URINALYSIS URINE Specimen Type: URINE Comment: Microscopic Not Indicated Ordering Provider: HILARIO CABRAL Report Released Date/Time: Feb 29, 2024 01:30 PM Reporting Lab: [address] [address] Performing Lab: [address] [address] URINE COLOR Yellow Yellow URINE SPECIFIC GRAVITY 1.022 1.001-1.0 29 URINE BILIRUBIN Negative mg/dL Negative URINE KETONES Negative mg/dL Negative-Tr rachel UR GLUCOSE Normal mg/dL Normal UR PROTEIN Negative mg/dL URINE PH 5.5 5.0-8.0 CLARITY Clear Clear URINE BLOOD 0.03 mg/dL NITRITE, URINE Negative Negative LEUKOCYTE ESTERASE, URINE Negative URINE UROBILINOGEN Normal mg/dL Normal Feb 29, 2024 01:31 PM [facility] ALLERGEN FOOD PANEL SERUM Specimen Ty pe: SERUM Comment: TEST PERFORMED AT: [place] [id number] Director: Joshua Medina MD, PhD, STEVE TEST PERFORMED AT: [address] [address] Director: Joshua Medina MD, PhD, STEVE TEST PERFORMED AT: [employer] [address] [address] Director: Joshua Medina MD, PhD, STEVE TEST PERFORMED AT: [address] [address] Director: Joshua Medina MD, PhD, STEVE TEST PERFORMED AT: [address] [address] Director: Joshua Medina MD, PhD, STEVE TEST PERFORMED AT: [employer] [facility] [address] [place] [address] Director: Joshau Medina MD, PhD, STEVE TEST PERFORMED AT: [address] [address] Director: Joshua Medina MD, PhD, STEVE TEST PERFORMED AT: [address] [address] Director: Joshua Medina MD, PhD, STEVE TEST PERFORMED AT: [address] [address] Director: Joshua Medina MD, PhD, STEVE TEST PERFORMED AT: [address] [address] Director: Joshua Meidna MD, PhD, STEVE TEST PERFORMED AT: [address] [address] Director: Joshua Medina MD, PhD, STEVE TEST PERFORMED AT: [address] [address] Director: Joshua Medina MD, PhD, STEVE TEST PERFORMED AT: [address] [address] Director: Joshua Medina MD, PhD, STEVE TEST PERFORMED AT: [address] [address] Director: Joshua Medina MD, PhD, STEVE TEST PERFORMED AT: [address] [address] Director: Joshua Medina MD, PhD, STEVE TEST PERFORMED AT: [address] [address] Director: Joshua Medina MD, PhD, STEVE TEST PERFORMED AT: [address] [address] Director: Joshua Medina MD, PhD, STEVE TEST PERFORMED AT: [facility] [address] Director: Joshua Medina MD, PhD, STEVE TEST PERFORMED AT: [facility] [address] Director: Joshua Medina MD, PhD, STEVE TEST PERFORMED AT: [address] Director: Joshua Medina MD, PhD, STEVE TEST PERFORMED AT: [facility] [address] Director: Joshua Medina MD, PhD, STEVE TEST PERFORMED AT: [facility] [address] Director: Joshua Medina MD, PhD, STEVE TEST PERFORMED AT: [address] Director: Joshua Medina MD, PhD, STEVE TEST PERFORMED AT: [facility] [address] Director: Joshua Medina MD, PhD, STEVE TEST PERFORMED AT: [facility] [address] Director: Joshua Medina MD, PhD, STEVE [...] intended for specialist use. TEST PERFORMED AT: [place] [address] Director: Joshua Medina MD, PhD, STEVE TEST PERFORMED AT: TEST PERFORMED AT: [facility] [id number] [place] [address] [place] [address] Director: Joshua Medina MD, PhD, STEVE Director: Joshua Medina MD, PhD, STEVE Ordering Provider: HILARIO CABRAL Report Released Date/Time: Feb 29, 2024 01:30 PM Reporting Lab: [address] [address] Performing Lab: [facility] CA IGE TOTAL SERUM 43 kU/L 114 OR LESS Barley IgE <0.10 kU/L Beef IgE <0.10 kU/L Pepper C. annuum IgE <0.10 kU/L Cabbage IgE <0.10 kU/L Carrot IgE <0.10 kU/L Chicken IgE <0.10 kU/L Codfish IgE <0.10 kU/L [place] IgE <0.10 kU/L Crab IgE <0.10 kU/L Egg White IgE <0.10 kU/L Grape IgE <0.10 kU/L Lettuce IgE <0.10 kU/L Milk (Cow) IgE <0.10 kU/L [place] Rec[place] IgE <0.10 kU/L Oat IgE <0.10 kU/L Gregory IgE <0.10 kU/L Peanut IgE <0.10 kU/L Potato IgE <0.10 kU/L Pork IgE <0.10 kU/L Rice IgE <0.10 kU/L [place] IgE <0.10 kU/L Shrimp IgE <0.10 kU/L Soybean IgE <0.10 kU/L Tomato IgE <0.10 kU/L Tuna IgE <0.10 kU/L Wheat IgE <0.10 kU/L Feb 29, 2024 01:31 PM [facility] QUANTIFERON (TUC/LB) BLOOD Specimen T ype: BLOOD Comment: A Negative result does not preclude the possibility of M. tuberculosis infection or tuberculosis disease: false-negative results can be due to the stage of infection (e.g., specimen obtained prior to the development of cellular immune response or other immunological variables). Ordering Provider: HILARIO CABRAL Report Released Date/Time: Feb 29, 2024 01:30 PM Reporting Lab: [facility] [address] [facility] [address] Performing Lab: [facility] [address] [address] QFT-Quantiferon Negative Negative QFT-NIL control 0.0619 [IU]/mL QFT-TB1 antigen 0.0000 [IU]/mL QFT-TB2 antigen 0.0080 [IU]/mL QFT-Mitogen control 9.9381 [IU]/mL Feb 29, 2024 01:31 PM [facility] HEMOGLOBIN A1C BLOOD Specimen Type: B LOOD Comment: [id number] Values obtained from A1C measurements can vary. For typical A1C assays, a reported value of 7.0 could actually be between 6.72 and 7.28 if measured by a reference method. A reported value of 9.0 could actually be between 8.73 and 9.27. Ref: https://ngsp.org/CAPdata.asp Ordering Provider: HILAROI CABRAL Report Released Date/Time: Feb 29, 2024 01:30 PM Reporting Lab: [address] [address] Performing Lab: [address] [address] HEMOGLOBIN A1C 5.8 4.4-6.4 Feb 29, 2024 01:31 PM [facility] HEPATITIS C AB PANEL SERUM Specimen T ype: SERUM Comment: Since Total PSA value is considered truly negative, confirmatory Free PSA assay is not indicated. Ordering Provider: HILARIO CABRAL Report Released Date/Time: Feb 29, 2024 01:30 PM Reporting Lab: [address] [place] [address] Performing Lab: [address] [address] HEPATITIS C ANTIBODY NEGATIVE <Negative Feb 29, 2024 01:31 PM [facility] LIPID STUDY (MUST BE FASTING) PLASMA S pecimen Type: PLASMA Comment: eGFR CKD-EPI eGFR calculated using the 2020 OZX-MIQ-dxctkxiwbl equation; units of measure are mL/min/1.73m~2. eGFR [...] Feb 29, 2024 01:30 PM Reporting Lab: [address] [address] Performing Lab: [address] [address] CHOLESTEROL 186 mg/dL 145-200 TRIGLYCERIDE 68 mg/dL 47-150 HDL 49 mg/dL 40-60 LDL-ABBY 123 mg/dL 0-130 Feb 29, 2024 01:31 PM [facility] CBC & DIFF BLOOD Specimen Type: BLOOD No comment entered. Ordering Provider: HILARIO CABRAL Report Released Date/Time: Feb 29, 2024 01:30 PM Reporting Lab: [address] [address] Performing Lab: [address] [address] WBC 7.0 10*3/uL 3.5-10.6 RBC 4.40 10*6/uL [...] 10*3/uL 0.00-0.07 Feb 29, 2024 01:31 PM [facility] TSH W/REFLEX FT4 PLASMA Specimen Type: PLASMA Comment: eGFR CKD-EPI eGFR calculated using the 2020 UGU-YSM-gvtktfpdnx equation; units of measure are mL/min/1.73m~2. eGFR [...] Feb 29, 2024 01:30 PM Reporting Lab: [address] [address] Performing Lab: [address] [address] TSH 1.246 u[IU]/mL 0.500-5.000 Feb 29, 2024 01:31 PM [facility] VITAMIN D (25-OH VITAMIN D) SCREEN PLASMA Specimen Type: PLASMA No comment entered. Ordering Provider: HILARIO CABRAL Report Released Date/Time: Feb 29, 2024 01:30 PM Reporting Lab: [address] [address] Performing Lab: [address] [address] VITAMIN D (25-OH VITAMIN D) SCREEN 24.2 ng/mL L 30.0-60.0 Feb 29, 2024 01:31 PM [facility] COMPREHENSIVE METABOLIC PANEL PLASMA S rossimen Type: PLASMA Comment: eGFR CKD-EPI eGFR calculated using the 2020 IPM-VEC-qwszbxwfgc equation; units of measure are mL/min/1.73m~2. eGFR [...] Feb 29, 2024 01:30 PM Reporting Lab: [address] [address] Performing Lab: [address] [address] BUN 15 mg/dL 7-20 GLUCOSE 98 mg/dL [...] L >90 Feb 29, 2024 01:31 PM [facility] PSA /Reflex Free PSA SERUM Specimen T ype: SERUM Comment: Since Total PSA value is considered truly negative, confirmatory Free PSA assay is not indicated. Ordering Provider: HILARIO CABRAL Report Released Date/Time: Feb 29, 2024 01:30 PM Reporting Lab: [facility] [address] [facility] [address] Performing Lab: [address] [address] PSAg 2.18 ng/mL 0.01-4.00 Social History: Smoking [...] 04, 2017 03:31 PM CURRENT TOBACCO USER [facility] Tobacco Use History This section includes a history of the smoking, or tobacco-related health factors, that were collected on or before the date of the Encounter. The data comes from the [place] facility where the Encounter took place. Date/Time Smoking Status/Tobacco Use Comment F acility Jan 04, 2017 03:31 PM TOB INFO ON NON-VA STOP SMOKING CLINIC [facility] Jan 04, 2017 03:31 PM TOBACCO OFFERED PT MEDS (PROVIDE R) [facility] May 31, 2011 09:24 AM QUIT TOBACCO IN THE LAST 12 OCTAVIO [facility] Advance Directives: All historical and current Section [...] 13, 2023 ADVANCE DIRECTIVE DISCUSSION VÍCTOR HAMPTON [facility] Jan 16, 2008 ADVANCE DIRECTIVE ROBERTA GARCIA [facility] Jan 16, 2008 ADVANCE DIRECTIVE SANJUANA DE DIOSN Kai [facility] Radiology Reports: +/- 30 days of [...] MORE VIE WS (RIGHT): ROSE MARY BURKS [id number] -1955 M Ex Date: MAR 27, 2024@13:23 Req Phys: HILARIO CABRAL Loc: ADMINISTRATIVE CONTACT (Req'g Img Loc: H-MAIN-X Service: [place] [address] (Case [id number] COMPLETE)KNEE 4 OR MORE VIEWS (RIGHT) (RAD Detailed) CPT:31725 Reason for Study: djd Clinical History: 68 y.o male w/ lumbar and L knee pain, keep falling when walks Report Status: Verified Date Reported: MAR 27, 2024 Date Verified: MAR 27, 2024 Delicatessen Manager E-Sig: Report: EXAM: KNEE 4 OR MORE [...] space narrowing in the medial compartment with alwv-sp-asxclexy joint space narrowing in the lateral compartment. Stable exam compared to 2019. [facility] Primary Diagnostic Code: Primary Interpreting Staff: HOUSTON MILLER, RADIOLOGIST Verified by ged teacher for HOUSTONDAVID MILLER /[facility] Mar 27, 2024 01:23 PM KNEE 4 OR MORE VIE WS (LEFT): ROSE MARY BURKS [id number] -1955 M Exm Date: MAR 27, 2024@13:23 Req Phys: HILARIO CABRAL Loc: ADMINISTRATIVE CONTACT (Req'g Img Loc: H-MAIN-X Service: Unknown [facility] [place] [address] (Case [id number] COMPLETE)KNEE 4 OR MORE VIEWS (LEFT) (RAD Detailed) CPT:89994 Reason for Study: djd Clinical History: 68 y.o male w/ lumbar and L knee pain, keep falling when walks Report Status: Verified Date Reported: MAR 27, 2024 Date Verified: MAR 27, 2024 Delicatessen Manager E-Sig: Report: EXAM: KNEE 4 OR MORE [...] space narrowing in the medial compartment with aabj-ab-dbimtzrp joint space narrowing in the lateral compartment. Stable exam compared to 2019. [facility] Primary Diagnostic Code: Primary Interpreting Staff: HOUSTON MILLER RADIOLOGIST Verified by ged teacher for HOUSTONDAVID MILLER /[facility] Mar 27, 2024 01:22 PM HIP 2-3 VIEWS (LEF T): ROSE MARY BURKS [id number] -1955 M Exm Date: MAR 27, 2024@13:22 Req Phys: MARIANNAFAN BobDAVID Pat Loc: [facility] SW PACT COSMETIC ASSEMBLER 6 (Req'g Loc) Img Loc: H-MAIN-X Service: [place] [address] (Case [id number] COMPLETE)HIP 2-3 VIEWS (LEFT) (RAD Detailed) CPT:42989 Reason for Study: Pain and falls Clinical History: Pain and falls Report Status: Verified Date Reported: MAR 27, 2024 Date Verified: MAR 27, 2024 Delicatessen Manager E-Sig: Report: EXAM: HIP 2-3 VIEWS (LEFT) [...] of osteonecrosis of the left femoral head. [facility] Primary Diagnostic Code: Primary Interpreting Staff: HOUSTON MILLER, RADIOLOGIST Verified by ged teacher for HOUSTON MILLER /HOUSTON ANGUIANO [facility] Mar 27, 2024 12:50 PM LDCT LUNG CANCER S CREENING: ROSE MARY BURKS [id number] -1955 M Exm Date: MAR 27, 2024@12:50 Req Phys: FAN CABRALDAVID Pat Loc: [facility] SW PACT COSMETIC ASSEMBLER 6 (Req'g Loc) Img Loc: [facility]-COMPUTED TOMOGRAPHY-X Service: [place] [address] (Case [id number] COMPLETE)LDCT LUNG CANCER SCREENING (CT Detailed) CPT:72750 Reason for Study: lung cancer screening Clinical History: Vet was on the lung cancer screening , last chest CT WAS 01/02/2023, HE MOVED TO [place], JUST MOVED BACK HERE NOW. Report Status: Verified Date Reported: MAR 28, 2024 Date Verified: MAR 28, 2024 Delicatessen Manager E-Sig: Report: Clinical Information: 68-year-old male presenting [...] r/o obstruction; Aggressive BP lowering; Referral to planner/scheduler or preventive hogshead head matcher 1. Di Anguiano, Delroy MAURICE, Conrad D, [...] Computed Tomography / Society of Thoracic Radiology. [facility] Primary Diagnostic Code: LUNGRADS 2: BENIGN APPEARANCE OR BEHAVIOR Primary Interpreting Staff: ANDREW SAMS MD, RADIOLOGIST Verified by ged teacher for ANDREW SAMS MD /ANDREW LIRIANO [facility] Feb 14, 2024 08:[address] LUMBAR SPINE W/ O CONT: ROSE MARY BURKS [id number] -1955 M Exm Date: FEB 14, 2024@20:53 Req Phys: BRAYAN VICTORIA Loc: [facility] EM[facility]ENCY DEPT/4PM-12M (Re Img Loc: [facility]-COMPUTED TOMOGRAPHY-X Service: [place] [address] (Case [id number] COMPLETE)CT LUMBAR SPINE W/O CONT (CT Detailed) CPT:14229 Reason for Study: l sciatica Clinical History: Report Status: Verified Date Reported: FEB 14, 2024 Date Verified: FEB 14, 2024 Delicatessen Manager E-Sig: Report: Clinical history: Low back pain [...] the right and moderate-severe on the left. [facility] Primary Diagnostic Code: Primary Interpreting Staff: LAUREN ARROYO MD, RADIOLOGIST Verified by ged teacher for LAUREN ARROYO MD /LAUREN DURAN [facility] Feb 05, 2024 08:27 PM KNEE 4 OR MORE VIE WS (LEFT): ROSE MARY BURKS [id number] -1955 M Exm Date: FEB 05, 2024@20:27 Req Phys: TAMIKA TRIVEDI Loc: [facility]/4PM-12M (Re Img Loc: H-MAIN-X Service: [place] [address] (Case [id number] COMPLETE) KNEE 4 OR MORE VIEWS (LEFT) (RAD Detailed) CPT:25420 Reason for Study: worsening chronic pain Clinical History: Report Status: Verified Date Reported: FEB 05, 2024 Date Verified: FEB 05, 2024 Delicatessen Manager E-Sig: Report: Clinical history: Worsening chronic knee [...] at the quadriceps insertion on the patella. [facility] Primary Diagnostic Code: Primary Interpreting Staff: LAUREN ARROYO MD, RADIOLOGIST Verified by ged teacher for LAUREN ARROYO MD /LAUREN DURAN [facility] Encounter Notes: All associated encounter notes This section contains the clinical notes associated to the Encounter. Date/Time Encounter Note(s) Provider Source Feb 29, 2024 12:09 PM TRAVELING/RELOCATI NG NOTE: LOCAL TITLE: PCMM/TRAVELING COORDINATION STANDARD TITLE: TRAVELING/RELOCATING NOTE DATE OF NOTE: FEB 29, 2024@12:09 ENTRY DATE: FEB 29, 2024@12:09:20 AUTHOR: NORMA MENDOZA EXP COSIGNER: URGENCY: STATUS: COMPLETED Chart reviewed for relocation verification. Clinical approval for transfer of care from [facility] documented in [facility]MM web. /es/ Jose Mendoza, MSN, STEVE, mohs surgeon/general dermatologist [place] Coordinator Signed: 02/29/2024 12:09 NORMA MENDOZA [facility]
--- OUTSIDE RECORDS SUMMARY | 2024-02-29 09:30 | XMS_ITS | Encounter Summary ---
Author Name [facility] Organization [facility] Address [address] [place] [address] Care Team Providers Care Transitional Care Manager Name Role Phone AMANDEEP PETERS Primary Care Provider Unavailabl e DRE, SAMMI Unavailable HILARIO Tran Primary Care Provider Unavailabl [...] PART A May 04, 2019 PART A [id number] KIMMIE,ALVARO SHELTON PATIENT MEDICARE (WNR) MEDICARE (M) PART B May 04, 2019 PART B [id number] BURKS,AN CAT PATIENT MEDICARE (WNR) MEDICARE (M) PART A October 02, 2018 PART A [id number] [phone] KIMMIE,AN CAT PATIENT MEDICARE (WNR) MEDICARE (M) PART B October 02, 2018 PART B [id number] KIMMIE,ALVARO SHELTON PATIENT Selected Encounter This section includes the information on record at OR for the Encounter. Date/Time Encounter Type Encounter Description Reason Provider Source Feb 29, 2024 01:30 PM OFFICE O/P NEW [place] 60 MIN PRIMARY CARE/MEDICINE ICD-10-CM M13.862 Other specified arthritis, left knee MARIANNAHILARIO IHE Encounter Template Text not used by OR Assessments - Encounter Diagnoses This section includes the primary and secondary diagnoses documented for the Encounter. Date/Time Primary/Secondary Diagnosis Diagnosis Name Provider Source Feb 29, 2024 05:02 PM PRIMARY Other specified arthritis, left knee MARIANNAHILARIO [facility] Feb 29, 2024 05:02 PM SECONDARY Chronic obstructive pulmonary disease, unspecified MARIANNAHILARIO [facility] Feb 29, 2024 05:02 PM SECONDARY Edema, unspecified [facility]ILARIO [facility] Feb 29, 2024 05:02 PM SECONDARY Gastro-esophageal reflux dis with esophagitis, without bleed HILARIO CABRAL [facility] Feb 29, 2024 05:02 PM SECONDARY Hyperlipidemia, unspecified MARIANNA,HILARIO [facility] Feb 29, 2024 05:02 PM SECONDARY Hypertensive heart disease without heart failure HILARIO CABRAL [facility] Feb 29, 2024 05:02 PM SECONDARY Memory deficit following other cerebrovascular disease HILARIO CABRAL [facility] Feb 29, 2024 05:02 PM SECONDARY Oth transient cerebral ischemic attacks and related synd HILARIO CABRAL [facility] Feb 29, 2024 05:02 PM SECONDARY Tobacco use [facility] Plan of Treatment: Future Appointments (+ 6 months) and Future Tests (+/- 45 days) The Plan of Treatment section includes future care activities for the patient from [facility]. This section includes future appointments and future orders which are active, pending or scheduled. Future Appointments This section includes appointments that were scheduled to occur 6 months from the date of the Encounter, up to a maximum of 20 appointments. The data comes from all OR treatment facilities. Appointment Date/Time Appointment Type Appointme nt Facility Name Mar 06, 2024 01:00 PM AMBULATORY - REHAB MEDICIN E [facility] Mar 27, 2024 02:00 PM AMBULATORY - NONE [facility] Apr 02, 2024 01:45 PM [facility] Apr 02, 2024 02:20 PM [facility] Apr 02, 2024 03:45 PM [facility] Apr 15, 2024 08:30 [facility] May 22, 2024 07:30 AM [facility] May 22, 2024 10:30 AM [facility] [place] [facility] Jun 18, 2024 01:00 PM [facility] Jul 05, 2024 06:18 AM [facility] Jul 31, 2024 01:30 PM [facility] Aug 06, 2024 04:15 PM [facility] Aug 08, 2024 01:00 PM AMBULATORY - REHAB MEDICIN E [facility] Aug 12, 2024 10:45 AM AMBULATORY - REHAB MEDICIN E [facility] Aug 19, 2024 10:15 AM AMBULATORY - REHAB MEDICIN E [facility] Aug 21, 2024 01:30 PM AMBULATORY - REHAB MEDICIN E [facility] Aug 26, 2024 10:45 AM AMBULATORY - REHAB MEDICIN E [facility] Aug 28, 2024 09:30 AM AMBULATORY - REHAB MEDICIN E [facility] Lab Results: +/- 30 days of the encounter This section includes the Chemistry and Hematology Lab Results on record with OR for the patient. Radiology Reports and Pathology Reports are provided separately, in subsequent sections. Lab Results This section contains the Chemistry/Hematology Results that were resulted 30 days before or 30 daysafter the date of the Encounter. Date/Time Source Result Type Result - Unit Interpretation Reference Range Specimen Type Comment Feb 29, 2024 02:30 PM [facility] URINALYSIS URINE Specimen Type: URINE Comment: Microscopic Not Indicated Ordering Provider: HILARIO CABRAL Report Released Date/Time: Feb 29, 2024 01:30 PM Reporting Lab: [address] [address] Performing Lab: [address] [address] URINE COLOR Yellow Yellow URINE SPECIFIC GRAVITY 1.022 1.001-1.0 29 URINE BILIRUBIN Negative mg/dL Negative URINE KETONES Negative mg/dL Negative-Tr rachel UR GLUCOSE Normal mg/dL Normal UR PROTEIN Negative mg/dL URINE PH 5.5 5.0-8.0 CLARITY Clear Clear URINE BLOOD 0.03 mg/dL NITRITE, URINE Negative Negative LEUKOCYTE ESTERASE, URINE Negative URINE UROBILINOGEN Normal mg/dL Normal Feb 29, 2024 01:31 PM [facility] ALLERGEN FOOD PANEL SERUM Specimen Ty pe: SERUM Comment: TEST PERFORMED AT: [facility] [address] [address] Director: Joshua Medina MD, PhD, STEVE TEST PERFORMED AT: [facility] [address] [address] Director: Joshua Medina MD, PhD, STEVE TEST PERFORMED AT: [facility] [address] [address] Director: Joshua Medina MD, PhD, STEVE TEST PERFORMED AT: [facility] [address] [address] Director: Joshua Medina MD, PhD, STEVE TEST PERFORMED AT: [facility] [address] [address] Director: Joshua Medina MD, PhD, STEVE TEST PERFORMED AT: [facility] [address] Director: Joshua Medina MD, PhD, STEVE TEST PERFORMED AT: [facility] [address] [address] Director: Joshua Medina MD, PhD, STEVE TEST PERFORMED AT: [facility] [address] Director: Joshua Medina MD, PhD, STEVE TEST PERFORMED AT: [facility] [address] Director: Joshua Medina MD, PhD, STEVE TEST PERFORMED AT: [facility] [address] Director: Joshua Medina MD, PhD, STEVE TEST PERFORMED AT: [facility] [address] [address] Director: Joshua Medina MD, PhD, STEVE TEST PERFORMED AT: [facility] [address] [address] Director: Joshua Medina MD, PhD, STEVE TEST PERFORMED AT: [address] [address] Director: Joshua Medina MD, PhD, STEVE TEST PERFORMED AT: [address] [address] Director: Joshua Medina MD, PhD, STEVE TEST PERFORMED AT: [address] [address] Director: Joshua Medina MD, PhD, STEVE TEST PERFORMED AT: [address] [address] Director: Joshua Medina MD, PhD, STEVE TEST PERFORMED AT: [address] [address] Director: Joshua Medina MD, PhD, STEVE TEST PERFORMED AT: [address] [address] Director: Joshua Medina MD, PhD, STEVE TEST PERFORMED AT: [address] [address] Director: Joshua Medina MD, PhD, STEVE TEST PERFORMED AT: [address] [address] Director: Joshua Medina MD, PhD, STEVE TEST PERFORMED AT: [facility] [address] [address] Director: Joshua Medina MD, PhD, STEVE TEST PERFORMED AT: [facility] [address] [address] Director: Joshua Medina MD, PhD, STEVE TEST PERFORMED AT: [address] [address] Director: Joshua Medina MD, PhD, STEVE TEST PERFORMED AT: [place] [address] Director: Joshua Medina MD, PhD, STEVE TEST PERFORMED AT: [facility] [place] [address] Director: Joshua Medina MD, PhD, STEVE INTERPRETATION [...] intended for specialist use. TEST PERFORMED AT: [place] [address] Director: Joshua Medina MD, PhD, STEVE TEST PERFORMED AT: TEST PERFORMED AT: [facility] [place] [address] [place] [address] Director: Joshua Medina MD, PhD, STEVE Director: Joshua Medina MD, PhD, STEVE Ordering Provider: HILARIO CABARL Report Released Date/Time: Feb 29, 2024 01:30 PM Reporting Lab: [address] [address] Performing Lab: [facility] CA IGE TOTAL SERUM 43 kU/L 114 OR LESS Barley IgE <0.10 kU/L Beef IgE <0.10 kU/L Pepper C. annuum IgE <0.10 kU/L Cabbage IgE <0.10 kU/L Carrot IgE <0.10 kU/L Chicken IgE <0.10 kU/L Codfish IgE <0.10 kU/L [place] IgE <0.10 kU/L Crab IgE <0.10 kU/L Egg White IgE <0.10 kU/L Grape IgE <0.10 kU/L Lettuce IgE <0.10 kU/L Milk (Cow) IgE <0.10 kU/L Athena Recinos IgE <0.10 kU/L Oat IgE <0.10 kU/L Searcy IgE <0.10 kU/L Peanut IgE <0.10 kU/L Potato IgE <0.10 kU/L Pork IgE <0.10 kU/L Rice IgE <0.10 kU/L Coalgate IgE <0.10 kU/L Shrimp IgE <0.10 kU/L Soybean IgE <0.10 kU/L Tomato IgE <0.10 kU/L Tuna IgE <0.10 kU/L Wheat IgE <0.10 kU/L Feb 29, 2024 01:31 PM [facility] QUANTIFERON (TUC/LB) BLOOD Specimen T ype: BLOOD Comment: A Negative result does not preclude the possibility of M. tuberculosis infection or tuberculosis disease: false-negative results can be due to the stage of infection (e.g., specimen obtained prior to the development of cellular immune response or other immunological variables). Ordering Provider: HILARIO CABRAL Report Released Date/Time: Feb 29, 2024 01:30 PM Reporting Lab: [facility] [address] [facility] [address] Performing Lab: [facility] [address] [place] [address] QFT-Quantiferon Negative Negative QFT-NIL control 0.0619 [IU]/mL QFT-TB1 antigen 0.0000 [IU]/mL QFT-TB2 antigen 0.0080 [IU]/mL QFT-Mitogen control 9.9381 [IU]/mL Feb 29, 2024 01:31 PM [facility] HEMOGLOBIN A1C BLOOD Specimen Type: B LOOD Comment: [id number] Values obtained from A1C measurements can vary. For typical A1C assays, a reported value of 7.0 could actually be between 6.72 and 7.28 if measured by a reference method. A reported value of 9.0 could actually be between 8.73 and 9.27. Ref: https://ngsp.org/CAPdata.asp Ordering Provider: HILARIO CABRAL Report Released Date/Time: Feb 29, 2024 01:30 PM Reporting Lab: [address] [address] Performing Lab: [address] [address] HEMOGLOBIN A1C 5.8 4.4-6.4 Feb 29, 2024 01:31 PM [facility] HEPATITIS C AB PANEL SERUM Specimen T ype: SERUM Comment: Since Total PSA value is considered truly negative, confirmatory Free PSA assay is not indicated. Ordering Provider: HILARIO CABRAL Report Released Date/Time: Feb 29, 2024 01:30 PM Reporting Lab: [address] [address] Performing Lab: [address] [address] HEPATITIS C ANTIBODY NEGATIVE <Negative Feb 29, 2024 01:31 PM [facility] TSH W/REFLEX FT4 PLASMA Specimen Type: PLASMA Comment: eGFR CKD-EPI eGFR calculated using the 2020 ODE-YQM-rukmtvtelg equation; units of measure are mL/min/1.73m~2. eGFR [...] Feb 29, 2024 01:30 PM Reporting Lab: [address] [address] Performing Lab: [address] [address] TSH 1.246 u[IU]/mL 0.500-5.000 Feb 29, 2024 01:31 PM [facility] LIPID STUDY (MUST BE FASTING) PLASMA S pecimen Type: PLASMA Comment: eGFR CKD-EPI eGFR calculated using the 2020 ZPC-OHH-vjcyoiogcu equation; units of measure are mL/min/1.73m~2. eGFR [...] Feb 29, 2024 01:30 PM Reporting Lab: [address] [address] Performing Lab: [address] [address] CHOLESTEROL 186 mg/dL 145-200 TRIGLYCERIDE 68 mg/dL 47-150 HDL 49 mg/dL 40-60 LDL-ABBY 123 mg/dL 0-130 Feb 29, 2024 01:31 PM [facility] CBC & DIFF BLOOD Specimen Type: BLOOD No comment entered. Ordering Provider: HILARIO CABRAL Report Released Date/Time: Feb 29, 2024 01:30 PM Reporting Lab: [address] [address] Performing Lab: [address] [address] WBC 7.0 10*3/uL 3.5-10.6 RBC 4.40 10*6/uL [...] 10*3/uL 0.00-0.07 Feb 29, 2024 01:31 PM [facility] PSA /Reflex Free PSA SERUM Specimen T ype: SERUM Comment: Since Total PSA value is considered truly negative, confirmatory Free PSA assay is not indicated. Ordering Provider: HILARIO CABRAL Report Released Date/Time: Feb 29, 2024 01:30 PM Reporting Lab: [address] [place] [address] Performing Lab: [address] [place] [address] PSAg 2.18 ng/mL 0.01-4.00 Feb 29, 2024 01:31 PM [facility] VITAMIN D (25-OH VITAMIN D) SCREEN PLASMA Specimen Type: PLASMA No comment entered. Ordering Provider: HILARIO CABRAL Report Released Date/Time: Feb 29, 2024 01:30 PM Reporting Lab: [address] [place] [address] Performing Lab: [address] [place] [address] VITAMIN D (25-OH VITAMIN D) SCREEN 24.2 ng/mL L 30.0-60.0 Feb 29, 2024 01:31 PM [facility] COMPREHENSIVE METABOLIC PANEL PLASMA S pecimen Type: PLASMA Comment: eGFR CKD-EPI eGFR calculated using the 2020 HKN-DLU-tdqudjqdtx equation; units of measure are mL/min/1.73m~2. eGFR [...] Feb 29, 2024 01:30 PM Reporting Lab: [address] [address] Performing Lab: [facility] [address] [facility] [address] BUN 15 mg/dL 7-20 GLUCOSE 98 mg/dL [...] Height Weight Body Mass Index Source Feb 29, 2024 01:00 PM 97.9 92 131/84 18 97 10 66 202 33 [facility] Social History: Smoking Status (Most current) and Tobacco Use (All prior to encounter date) This section includes the most current, and the historical, smoking and tobacco- related health factors from the OR facility where the Encounter took place. Current Smoking Status This section includes the most current smoking, or tobacco-related health factor, from the OR facility where the Encounter took place. Date/Time Current Smoking Status Comment Facil ity Feb 29, 2024 01:30 PM VA-TOBACCO FORMER USER [facility] Tobacco Use History This section includes a history of the smoking, or tobacco-related health factors, that were collected on or before the date of the Encounter. The data comes from the OR facility where the Encounter took place. Date/Time Smoking Status/Tobacco Use Comment F acility Feb 29, 2024 01:30 PM VA-TOBACCO QUIT 1 TO < 5 YRS [facility] Feb 29, 2024 01:30 PM VA-TOBACCO QUIT 15 YRS OR MORE [facility] Jan 03, 2023 11:30 AM VA-TOBACCO DOESNT USE WI 30 MIN WAKEUP [facility] Jan 03, 2023 11:30 AM VA-TOBACCO USE 30 YEARS OR MORE [facility] Jan 03, 2023 11:30 AM VA-TOBACCO USE ADVICE [facility] Jan 03, 2023 11:30 AM VA-TOBACCO USE HR BUSINESS PARTNER NO [facility] Jan 03, 2023 11:30 AM VA-TOBACCO USE MED NO [facility] Jan 03, 2023 11:30 AM VA-TOBACCO USER SOME DAYS [facility] Jan 02, 2022 08:00 AM VA-TOBACCO USE 30 YEARS OR MORE [facility] Jan 02, 2022 08:00 AM VA-TOBACCO USE ADVICE [facility] Jan 02, 2022 08:00 AM VA-TOBACCO USE HR BUSINESS PARTNER NO [facility] Jan 02, 2022 08:00 AM VA-TOBACCO USE MED NO [facility] Jan 02, 2022 08:00 AM VA-TOBACCO USE WI 30 MIN OF WAKEUP [facility] Jan 02, 2022 08:00 AM VA-TOBACCO USER EVERY DAY [facility] Feb 15, 2021 11:30 AM VA-TOBACCO USE > 1 5 LESS THAN 30 YEARS [facility] Feb 15, 2021 11:30 AM VA-TOBACCO USE ADVICE [facility] Feb 15, 2021 11:30 AM VA-TOBACCO USE HR BUSINESS PARTNER NO [facility] Feb 15, 2021 11:30 AM VA-TOBACCO USE MED NO [facility] Feb 15, 2021 11:30 AM VA-TOBACCO USE WI 30 MIN OF WAKEUP [facility] Feb 15, 2021 11:30 AM VA-TOBACCO USER EVERY DAY [facility] Nov 13, 2018 08:15 AM VA-TOBACCO USE > 1 5 LESS THAN 30 YEARS [facility] Nov 13, 2018 08:15 AM VA-TOBACCO USE ADVICE [facility] Nov 13, 2018 08:15 AM VA-TOBACCO USE HR BUSINESS PARTNER NO [facility] Nov 13, 2018 08:15 AM VA-TOBACCO USE MED NO [facility] Nov 13, 2018 08:15 AM VA-TOBACCO USE WI 30 MIN OF WAKEUP [facility] Nov 13, 2018 08:15 AM VA-TOBACCO USER EVERY DAY [facility] Aug 10, 2010 03:28 PM CURRENT TOBACCO USER [facility] Aug 28, 2007 09:40 AM CURRENT TOBACCO USER cigarettes 1 pack every 2 days [facility] Aug 28, 2007 09:40 AM TOBACCO QUESTIONNA ALTHEA COMPLETED [facility] Jul 16, 2006 11:25 AM CURRENT TOBACCO USER 8-12 cigs daily [facility] Advance Directives: All historical and current Section Date Range: From patient's date of to the date document was created. This section includes ALL of a patient's completed or amended OR Advance and Rescinded Directives. The entries below indicate that a directive exists for the patient, but an actual copy is not included with this document. The data comes from all [facility]. Date Advance Directives Provider Source Jun 13, 2023 ADVANCE DIRECTIVE DISCUSSION VÍCTOR [facility] Jan 16, 2008 ADVANCE DIRECTIVE [facility] Jan 16, 2008 ADVANCE DIRECTIVE RALPH DE DIOS [facility] Radiology Reports: +/- 30 days of the [...] the Encounter. The data comes from all OR treatment facilities. Date/Time Radiology Report Provider Source Mar 27, 2024 01:23 PM KNEE 4 OR MORE VIE WS (RIGHT): ROSE MARY BURKS [id number] -1955 M Exm Date: MAR 27, 2024@13:23 Req Phys: HILARIO CABRAL Loc: ADMINISTRATIVE CONTACT (Req'g Img Loc: H-MAIN-X Service: [place] [address] (Case [id number] COMPLETE)KNEE 4 OR MORE VIEWS (RIGHT) (RAD Detailed) CPT:11375 Reason for Study: djd Clinical History: 68 y.o male w/ lumbar and L knee pain, keep falling when walks Report Status: Verified Date Reported: MAR 27, 2024 Date Verified: MAR 27, 2024 Process Control Operator E-Sig: Report: EXAM: KNEE 4 OR MORE [...] space narrowing in the medial compartment with oogq-ej-txdsmyfa joint space narrowing in the lateral compartment. Stable exam compared to 2019. Primary Diagnostic Code: Primary Interpreting Staff: HOUSTON MILLER, RADIOLOGIST Verified by probation counselor for HOUSTON MILLER /HOUSTON ANGUIANO [facility] Mar 27, 2024 01:23 PM KNEE 4 OR MORE VIE WS (LEFT): ROSE MARY BURKS KATHY [id number] -1955 M Exm Date: MAR 27, 2024@13:23 Req Phys: HILARIO CABRAL Loc: ADMINISTRATIVE CONTACT (Req'g Img Loc: H-MAIN-X Service: [place] [address] (Case [id number] COMPLETE)KNEE 4 OR MORE VIEWS (LEFT) (RAD Detailed) CPT:93558 Reason for Study: djd Clinical History: 68 y.o male w/ lumbar and L knee pain, keep falling when walks Report Status: Verified Date Reported: MAR 27, 2024 Date Verified: MAR 27, 2024 Process Control Operator E-Sig: Report: EXAM: KNEE 4 OR MORE [...] space narrowing in the medial compartment with jywk-zz-vmhezpcs joint space narrowing in the lateral compartment. Stable exam compared to 2019. [facility] Primary Diagnostic Code: Primary Interpreting Staff: HOUSTON MILLER, RADIOLOGIST Verified by probation counselor for HOUSTON MILLER /HOUSTON ANGUIANO [facility] Mar 27, 2024 01:22 PM HIP 2-3 VIEWS (LEF T): BURKS,ROSE MARY KATHY [id number] -1955 M Exm Date: MAR 27, 2024@13:22 Req Phys: HILARIO CABRAL Pat Loc: [facility] SW PACT COOK FROZEN DESSERT 6 (Req'g Loc) Img Loc: H-MAIN-X Service: [place] [address] (Case [id number] COMPLETE)HIP 2-3 VIEWS (LEFT) (RAD Detailed) CPT:44877 Reason for Study: Pain and falls Clinical History: Pain and falls Report Status: Verified Date Reported: MAR 27, 2024 Date Verified: MAR 27, 2024 Process Control Operator E-Sig: Report: EXAM: HIP 2-3 VIEWS (LEFT) [...] of osteonecrosis of the left femoral head. [facility] Primary Diagnostic Code: Primary Interpreting Staff: HOUSTON MILLER, RADIOLOGIST Verified by probation counselor for HOUSTON MILLER /HOUSTON ANGUIANO [facility] Mar 27, 2024 12:50 PM LDCT LUNG CANCER S CREENING: ROSE MARY BURKS KATHY [id number] -1955 M Exm Date: MAR 27, 2024@12:50 Req Phys: HILARIO CABRAL Pat Loc: [facility] SW PACT COOK FROZEN DESSERT 6 (Req'g Loc) Img Loc: [facility]-COMPUTED TOMOGRAPHY-X Service: [place] [address] (Case [id number] COMPLETE)LDCT LUNG CANCER SCREENING (CT Detailed) CPT:49858 Reason for Study: lung cancer screening Clinical History: Vet was on the lung cancer screening , last chest CT WAS 01/02/2023, HE MOVED TO [place], JUST MOVED BACK HERE NOW. Report Status: Verified Date Reported: MAR 28, 2024 Date Verified: MAR 28, 2024 Process Control Operator E-Sig: Report: Clinical Information: 68-year-old male presenting [...] r/o obstruction; Aggressive BP lowering; Referral to testing consultant or preventive plumber maintenance 1. Di Anguiano, Delroy MAURICE, Conrad Aguirre, et al. Ordinal scoring of coronary artery calcifications on low-dose CT scans of the chest is predictive of from cardiovascular disease. Radiology. 2010; 257: 541-8. 2. Bryant Y, Fermin HOWARD, Delroy MAURICE, et al. Coronary artery calcification on low-dose computed tomography: comparison of [place] and Ordinal Scores. Clinical imaging. 2015; 39: 799-802. *3. Expert Work Group Members. 2016 SCCT/STR Guidelines for Coronary Artery Calcium Scoring of Noncontrast Noncardiac CT Scans. A report of the Society of Cardiovascular Computed Tomography / Society of Thoracic Radiology. [facility] Primary Diagnostic Code: LUNGRADS 2: BENIGN APPEARANCE OR BEHAVIOR Primary Interpreting Staff: ANDREW SAMS MD, RADIOLOGIST Verified by probation counselor for ANDREW SAMS MD /ANDREW LIRIANO [facility] Feb 14, 2024 08:[address] LUMBAR SPINE W/ O CONT: ROSE MARY BURKS KATHY [id number] -1955 M Ex Date: FEB 14, 2024@20:53 Req Phys: JULIENBRAYAN CARRILLO Loc: [facility]PT/4PM-12M (Re Img Loc: [facility]-COMPUTED TOMOGRAPHY-X Service: Unknown [facility] [place] [address] (Case [id number] COMPLETE)CT LUMBAR SPINE W/O CONT (CT Detailed) CPT:63656 Reason for Study: l sciatica Clinical History: Report Status: Verified Date Reported: FEB 14, 2024 Date Verified: FEB 14, 2024 Process Control Operator E-Sig: Report: Clinical history: Low back pain [...] the right and moderate-severe on the left. [facility] Primary Diagnostic Code: Primary Interpreting Staff: LAUREN ARROYO MD, RADIOLOGIST Verified by probation counselor for LAUREN ARROYO MD /LAUREN DURAN [facility] Feb 05, 2024 08:27 PM KNEE 4 OR MORE VIE WS (LEFT): ROSE MARY BURKS [facility] [id number] -1955 M Exm Date: FEB 05, 2024@20:27 Req Phys: TAMIKA TRIVEDI Pat Loc: [facility]/4PM-12M (Re Img Loc: H-MAIN-X Service: Unknown [facility] [place] [address] (Case [id number] COMPLETE) KNEE 4 OR MORE VIEWS (LEFT) (RAD Detailed) CPT:72529 Reason for Study: worsening chronic pain Clinical History: Report Status: Verified Date Reported: FEB 05, 2024 Date Verified: FEB 05, 2024 Process Control Operator E-Sig: Report: Clinical history: Worsening chronic knee [...] at the quadriceps insertion on the patella. [facility] Primary Diagnostic Code: Primary Interpreting Staff: LAUREN ARROYO MD, RADIOLOGIST Verified by probation counselor for LAUREN ARROYO MD /LAUREN DURAN [facility] Encounter Notes: All associated encounter notes This section contains the clinical notes associated to the Encounter. Date/Time Encounter Note(s) Provider Source Feb 29, 2024 05:02 PM ADDENDUM: LOCAL TITLE: Addendum STANDARD TITLE: ADDENDUM DATE OF NOTE: FEB 29, 2024@17:02:34 ENTRY DATE: FEB 29, 2024@17:02:35 AUTHOR: HILARIO CABRAL EXP COSIGNER: URGENCY: STATUS: COMPLETED please assign thsi patient to [facility] TEAM 6 [facility] FROZEN DESSERT MARIANNA. BRYSON /kallie/ HILARIO CABRAL DNP, ANP-C NURSE PRACTITIONER Signed: 02/29/2024 17:03 Receipt Acknowledged By: 03/03/2024 08:16 /kallie/ PATRICE JUSTICE PCMM COORDINATOR --- Original Document --- 02/29/24 PRIMARY CARE PROGRESS NOTE: NEW PATIENT - MEDICAL S: ROSE MARY BURKS,68 yo MALE WHITE presents today to become established within the OR. CC: Rodrigo is [facility], he moved to [place], and now \return to [facility]. c/o pain L knee w/ swollen legs, was seen in [place] ER 02/27/24, Reported he got Gabapentine 100MG FOR PAIN, SAID HE DID NTO FEEL ANYTHING W/ THAT MED. Rodrigo requests something stronger for pain because h could hardly walk. Past Medical Hx: none Active problems - Computerized Problem List is the source for the following: PROBLEM 1. Tobacco use (SNOMED CT 975259870) 2. Allergic rhinitis (SNOMED CT 45189952) 3. Chronic obstructive lung disease 4. Degeneration of cervical intervertebral disc 5. Edema 6. Vitamin D deficiency 7. Gastro-esophageal reflux disease with esophagitis 8. Transient ischemic attack 9. Memory impairment 10. Hypertensive heart disease 11. Hyperlipidemia 12. 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 Cardiovascular: Last EKG -01/2023 , Pt denies chest pain, orthopnea, palpitations. Resp: Last CXR -01/2022 , Pt denies cough, asthma, wheezing, SOB, dyspnea, hemoptysis. Lymph: Pt states does not bruises easily. Pt denies bleeding easily. GI: Pt denies N/V, abd pain, diarrhea, constipation, melena, BRBPR. : Pt denies dysuria, polyuria, noturia, urgency, hematuria. Musculoskeletal: Pt reported L knee pain Skin: Pt denies any mole changes, rashes. Neuro: Pt denies paralysis, tremors, seizures. Psych: Pt denies treatment for depression. OBJECTIVE: DATE/TIME TEMP PULSE RESP BP PAIN WT (LB) P OX 02/29/24 @ 1300 97.9 92 18 131/84 10 202 97 BODY MASS INDEX - 32.6 (FEB 29, 2024@13:00) General Appearance: WD/WN, in no acute distress, A&O HEENT: PERRL. EOMI. Throat clear w/o erythema. No audible carotid bruit. Cardiovascular: RRR with physiologic S1 and S2; without murmur, gallop, rub. Radial/Posterior tib pulses 2/4. Resp: Clear to auscultation, no wheeze or rhonchi, no CVA tenderness. Lymph: No Cervical/axillary lymphadenopathy. GI: No striae. NT/ND, No palpable masses, rebound or rigidity, no HSM, +BSx4 : No hernia, denied urinary problem. MS/Extremities: bilat. lower leg edema (+) 1, L knee pain, antalgic gait favorign L leg. No ambualtion aid needed. Skin: Anicteric, no visual rashes. Neuro: 2+ DTR's of triceps, biceps and patellar. CN 11-X11 grossly intact. Psych: Alert, oriented, pleasant, & cooperative. ASSESSMENT/PLAN: 1. L KNEE djd: advised to start PT-self scheduling, Gabapentine 300mg po tid , topical pain meds as ordered, short supply of Gabapentine picker packer form a [facility] pharmacy today. 2. Edema: not ocntrolled, med as ordered, short supply picker packer from a local pharnacy Furosemide 40MG PO QQD, BUT START TONITE W/ 20mg only, and start 40MG PO TOMORROW ONWARD. 3. Tobacco use: no change no itention to quit, last chest CT was 01/02/2023, consult to lung cancer screenig ordered 4. Allergic rhinitis: STABLE, CONTROLLED 5. Chronic obstructive lung disease: stable, controlled 6. Degeneration of cervical intervertebral disc: stable, controlled 7. Gastro-esophageal reflux disease with esophagitis: STABLE W/ CURRENT MED 8. Transient ischemic attack: stable, on Clodipogrel 9. Memory impairment: stable, no change 10. Hypertensive heart disease: controlled Labs results are pending ,just got labs done when he comes for hsi appt[facility] afternoon and all meds reviewed and discussed with vet today, update med list printed outfor vet today. ITEM ORDERED START DATE STOP DATE ENTERED STATUS CONSULT: LUNG CANCER SCREENING Return to [facility]OOK FROZEN DESS[facility] 6 on or around ( Feb 26, 2025 ) for a total of 1 appointment(s) Prerequisites: FACE TO FACE, LABS (FASTING) annual f/u, needs appt. to see PT for L knee , sooner if any change or if no improvement Continue present medications and treatment(s) Always wear a seat belt while driving. Avoid the use of alcohol and tobacco. Assess Statin Use - Lipids (CVD/DM): The patient is currently on a moderate or high dose statin. The patient is on the highest dose of statin that they can tolerate. Avg Risk Colorectal Cancer Screen: AVERAGE RISK colorectal cancer screening is due based on information available to this clinical reminder Patient declined screening/surveillance. Comment: not now, he is in a lot pain, can hardly walk HIV Screening: The patient declines to be tested for HIV infection. The patient has been educated about the risks of delayed screening. /kallie/ HILARIO CABRAL DNP, ANP-C NURSE PRACTITIONER Signed: 02/29/2024 17:02 HILARIO CABRAL [facility] Feb 29, 2024 04:32 PM PRIMARY CARE NOTE: LOCAL TITLE: PRIMARY CARE PROGRESS NOTE STANDARD TITLE: PRIMARY CARE NOTE DATE OF NOTE: FEB 29, 2024@16:32 ENTRY DATE: FEB 29, 2024@16:32:43 AUTHOR: HILARIO CABRAL EXP COSIGNER: URGENCY: STATUS: COMPLETED PRIMARY CARE PROGRESS NOTE Has ADDENDA NEW PATIENT - MEDICAL S: BURKSROSE MARY WILSON,68 yo MALE WHITE presents today to become established within the OR. CC: Rodrigo is [facility], he moved to [place], and now \return to [facility]. c/o pain L knee w/ swollen legs, was seen in [place] ER 02/27/24, Reported he got Gabapentine 100MG FOR PAIN, SAID HE DID NTO FEEL ANYTHING W/ THAT MED. Vet requests something stronger for pain because h could hardly walk. Past Medical Hx: none Active problems - Computerized Problem List is the source for the following: PROBLEM 1. Tobacco use (SNOMED CT 159361734) 2. Allergic rhinitis (SNOMED CT 99017430) 3. Chronic obstructive lung disease 4. Degeneration of cervical intervertebral disc 5. Edema 6. Vitamin D deficiency 7. Gastro-esophageal reflux disease with esophagitis 8. Transient ischemic attack 9. Memory impairment 10. Hypertensive heart disease 11. Hyperlipidemia 12. 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 Cardiovascular: Last EKG -01/2023 , Pt denies chest pain, orthopnea, palpitations. Resp: Last CXR -01/2022 , Pt denies cough, asthma, wheezing, SOB, dyspnea, hemoptysis. Lymph: Pt states does not bruises easily. Pt denies bleeding easily. GI: Pt denies N/V, abd pain, diarrhea, constipation, melena, BRBPR. : Pt denies dysuria, polyuria, noturia, urgency, hematuria. Musculoskeletal: Pt reported L knee pain Skin: Pt denies any mole changes, rashes. Neuro: Pt denies paralysis, tremors, seizures. Psych: Pt denies treatment for depression. OBJECTIVE: DATE/TIME TEMP PULSE RESP BP PAIN WT (LB) P OX 02/29/24 @ 1300 97.9 92 18 131/84 10 202 97 BODY MASS INDEX - 32.6 (FEB 29, 2024@13:00) General Appearance: WD/WN, in no acute distress, A&O HEENT: PERRL. EOMI. Throat clear w/o erythema. No audible carotid bruit. Cardiovascular: RRR with physiologic S1 and S2; without murmur, gallop, rub. Radial/Posterior tib pulses 2/4. Resp: Clear to auscultation, no wheeze or rhonchi, no CVA tenderness. Lymph: No Cervical/axillary lymphadenopathy. GI: No striae. NT/ND, No palpable masses, rebound or rigidity, no HSM, +BSx4 : No hernia, denied urinary problem. MS/Extremities: bilat. lower leg edema (+) 1, L knee pain, antalgic gait favorign L leg. No ambualtion aid needed. Skin: Anicteric, no visual rashes. Neuro: 2+ DTR's of triceps, biceps and patellar. CN 11-X11 grossly intact. Psych: Alert, oriented, pleasant, & cooperative. ASSESSMENT/PLAN: 1. L KNEE djd: advised to start PT-self scheduling, Gabapentine 300mg po tid , topical pain meds as ordered, [facility]. 2. Edema: not ocntrolled, med as ordered, short supply picker packer from a local pharnacy Furosemide 40MG PO QQD, BUT START TONITE W/ 20mg only, and start 40MG PO TOMORROW ONWARD. 3. Tobacco use: no change no itention to quit, last chest CT was 01/02/2023, consult to lung cancer screenig ordered 4. Allergic rhinitis: STABLE, CONTROLLED 5. Chronic obstructive lung disease: stable, controlled 6. Degeneration of cervical intervertebral disc: stable, controlled 7. Gastro-esophageal reflux disease with esophagitis: STABLE W/ CURRENT MED 8. Transient ischemic attack: stable, on Clodipogrel 9. Memory impairment: stable, no change 10. Hypertensive heart disease: controlled Labs results are pending ,just got labs done when he comes for hsi appt. afternoon and all meds reviewed and discussed with vet today, update med list printed outfor vet today. ITEM ORDERED START DATE STOP DATE ENTERED STATUS CONSULT: LUNG CANCER SCREENING Return to [facility] DESS[facility] 6 on or around ( Feb 26, 2025 ) for a total of 1 appointment(s) Prerequisites: FACE TO FACE, LABS (FASTING) annual f/u, needs appt. to see PT for L knee , sooner if any change or if no improvement Continue present medications and treatment(s) Always wear a seat belt while driving. Avoid the use of alcohol and tobacco. Assess Statin Use - Lipids (CVD/DM): The patient is currently on a moderate or high dose statin. The patient is on the highest dose of statin that they can tolerate. Avg Risk Colorectal Cancer Screen: AVERAGE RISK colorectal cancer screening is due based on information available to this clinical reminder Patient declined screening/surveillance. Comment: not now, he is in a lot pain, can hardly walk HIV Screening: The patient declines to be tested for HIV infection. The patient has been educated about the risks of delayed screening. /ANDREI Cha DNP NURSE PRACTITIONER Signed: 02/29/2024 17:02 02/29/2024 ADDENDUM STATUS: COMPLETED please assign thsi patient to [facility] TEAM 6 COOK FROZEN DESSERT MARIANNA. THANKS /ANDREI Cha DNP NURSE PRACTITIONER Signed: 02/29/2024 17:03 Receipt Acknowledged By: * AWAITING SIGNATURE * PATRICE JUSTICE [facility] Feb 29, 2024 02:21 PM MEDICATION MGT NOT E: LOCAL TITLE: NON VA PRESCRIPTION NOTE STANDARD TITLE: MEDICATION MGT NOTE DATE OF NOTE: FEB 29, 2024@14:21 ENTRY DATE: FEB 29, 2024@14:21:40 AUTHOR: HILARIO CABRAL EXP COSIGNER: URGENCY: STATUS: COMPLETED [address], [place] [address] ROSE MARY BURKS [address] [address] Patient : October ALLERGIES: BACTRIM The orders below are to be filled by any outpatient pharmacy: GABAPENTIN 300MG CAP Sig: TAKE 1 CAPSULE BY MOUTH THREE TIMES A DAY FOR NEUROPATHIC PAIN Quantity:__30 Refills:___0 FUROSEMIDE 40MG TAB Sig: TAKE ONE TABLET BY MOUTH EVERY DAY edema Quantity:__10 Refills:____0 POTASSIUM CHLORIDE 10MEQ SA CAP Sig: TAKE 1 CAPSULE BY MOUTH EVERY DAY FOR POTASSIUM REPLACEMENT Quantity:__10 Refills:____0 DATE: FEB 29, 2024 Signature: ___ Name: HILARIO CABRAL #: [id number] Expiration: JUN 03, 2025 ROSE MARY BURKS [facility] Feb 29, 2024 02:15 PM MEDICATION MGT NOT E: LOCAL TITLE: NON VA PRESCRIPTION NOTE STANDARD TITLE: MEDICATION MGT NOTE DATE OF NOTE: FEB 29, 2024@14:15 ENTRY DATE: FEB 29, 2024@14:15:23 AUTHOR: HILARIO CABRAL EXP COSIGNER: URGENCY: STATUS: [place] [address] ROSE MARY BURKS [address] [address] Patient : October ALLERGIES: BACTRIM The orders below are to be filled by any outpatient pharmacy: GABAPENTIN 300MG CAP Sig: TAKE 1 CAPSULE BY MOUTH THREE TIMES A DAY FOR NEUROPATHIC PAIN Quantity:___30____ Refills:____0 FUROSEMIDE 40MG TAB Sig: TAKE ONE TABLET BY MOUTH EVERY DAY edema Quantity:__10 Refills:____0 DATE: FEB 29, 2024 Signature: ___ Name: HILARIO CABRAL GIANNA #: [id number] Expiration: JUN 03, 2025 ROSE MARY BURKS HILARIO CABRAL [facility] Feb 29, 2024 01:10 PM PREVENTIVE MEDICIN E NOTE: LOCAL TITLE: PREVENTIVE HEALTH MANAGEMENT STANDARD TITLE: PREVENTIVE MEDICINE NOTE DATE OF NOTE: FEB 29, 2024@13:10 ENTRY DATE: FEB 29, 2024@13:10:37 AUTHOR: ALICIA STUBBS EXP COSIGNER: URGENCY: STATUS: COMPLETED PREVENTIVE HEALTH MANAGEMENT Has ADDENDA STRESS MANAGEMENT SCREEN Stress is a normal part of life, but long periods of stress can be harmful to our health. Stress can present in different ways such as difficulty concentrating, irregular sleep, irritability, or feeling more emotional than usual. Are you feeling overwhelmed by stress in your life? No. The OR has resources that can help you manage your stress. These include whole health, mental health, social work, recreation therapy, nutrition, and a self-paced workbook. Can I provide you with any information on how to access these resources today? (Check all that apply) None at this time ADVANCE DIRECTIVE: Do you have an Advance Directive completed in the community or at another VA? Yes--we need a copy. When [place] brings it in, give to Flight Crew Time Clerk. Is the designated primary/alternate power of tax associate attorney accurate: Yes Alcohol Use Screen (AUDIT-C): Alcohol Screen: SCREEN FOR ALCOHOL (AUDIT-C) An alcohol screening test (AUDIT-C) was negative (score=0). 1. How often did you have a drink containing alcohol in the past year? Consider a drink to be a 12 ounce can or bottle of regular beer, 8 ounces of malt liquor, a 5 ounce glass of table wine, or a 1.5 ounce shot of liquor (like scotch, gin, or vodka). Never 2. How many drinks containing alcohol did you have on a typical day when you were drinking in the past year? Response not required due to responses to other questions. 3. How often did you have six or more drinks on one occasion in the past year? Response not required due to responses to other questions. Barriers to Learning: Preferred Language for Discussing Healthcare: Sudanese Preferred mode of communication: Verbal Barriers to learning: None evident Patient learning style preferences: None Eye Care At-Risk Screen : Patient identified to be at risk for the following eye condition(s): MACULAR DEGENERATION: Macular Degeneration Risk Factors Information: Reminder Term: VA-AMD RISK FACTORS Encounter Diagnosis: 02/05/2024@20:06 Z72.0 (ICD-10-CM) Tobacco use rank: SECONDARY Prov. Narr. - Tobacco use ([facility] [id number]) Action: Patient has a future eye care appointment scheduled within the next 90 days. Date of Appointment: LAST FEW MONTHS Fall Risk Screen: Fall Risk Assessment Tool Identified Risk Factors: Age 65+ 3 or more documented medical/psychiatric diagnosis Fall within the last 3 months an unintentional change in position results in coming to rest on the ground or at a lower level Total Score: 3/10 If score is > 4 (out of 10) patient is considered at risk for falling. Fall Risk Assessment from the [facility]-10 tool created by [facility] Is the [place] concerned about falling? No Educational links and webpage provided. Printed materials given as requested from the topics below: declines educational handouts [place] provided education regarding Fall Prevention. RESPONSE TO EDUCATION: Teach-back used to verify understanding. LEVEL OF UNDERSTANDING: Good Skin Integrity Screen OPT: SKIN SCREEN RISK FACTOR ASSESSMENT: No risk factors identified. Depression Screening: Perform PHQ-2 A PHQ-2 screen was performed. The score was 0 which is a negative screen for depression. Over the past two weeks, how often have you been bothered by the following problems? 1. Little interest or pleasure in doing things Not at all 2. Feeling down, depressed, or hopeless Not at all TB Screening: TB Screening is done once upon entry to the facility for all Veterans, and again at clinical discretion, if needed. It can be completed by quantiferon lab test or TB Skin test. TST refused. Ordering Provider advised? Yes Tobacco Use Screening: The patient is a former tobacco user. The patient quit one to less than 5 years ago. RHS Screen: RHS Screen Environmental Check Screening was not completed at this time due to: Other: NO PARTNER /kallie/ ALICIA STUBBS LPN Signed: 02/29/2024 13:25 02/29/2024 ADDENDUM STATUS: COMPLETED Hepatitis A Vaccine: Deferral/Refusal: The patient declines vaccination for hepatitis A. Immunization: HEP A, UNSPECIFIED FORMULATION Refusal Reason: PATIENT DECISION Patient refuses all immunization(s) in the HepA group Date Documented: 02/29/24 13:43 Herpes Zoster (Shingles) Vaccine: The patient declines to receive the recommended dose of zoster (shingles) vaccine. Immunization: ZOSTER RECOMBINANT Refusal Reason: PATIENT DECISION Patient refuses all immunization(s) in the ZOSTER group Date Documented: 02/29/24 13:43 Influenza Immunization: Deferral / Refusal The patient declines to receive the recommended dose of seasonal influenza vaccine. Immunization: INFLUENZA, UNSPECIFIED FORMULATION Refusal Reason: PATIENT DECISION Patient refuses all immunization(s) in the FLU group Date Documented: 02/29/24 13:43 Pneumococcal Conjugate Vaccine (PCV15/PCV20): Refuses PCV vaccine Immunization: PNEUMOCOCCAL CONJUGATE, UNSPECIFIED FORMULATION Refusal Reason: PATIENT DECISION Patient refuses all immunization(s) in the PneumoPCV group Date Documented: 02/29/24 13:43 /kallie/ ALICIA STUBBS LPN Signed: 02/29/2024 13:44 ALICIA STUBBS [facility]
--- OUTSIDE RECORDS SUMMARY | 2024-03-02 12:03 | XMS_ITS ---
Author Name [facility] [facility] [place] Address [address] [place] [address] Care Team Providers Care Foreign Exchange Student Coordinator Name Role Phone AMANDEEP PETERS Primary Care [...] PART A May 04, 2019 PART A [id number] [phone] KIMMIE,ALVARO SHELTON PATIENT MEDICARE (WNR) MEDICARE (M) PART B May 04, 2019 PART B [id number] [phone] BURKS,AN CAT PATIENT MEDICARE (WNR) MEDICARE (M) PART A October 02, 2018 PART A [id number] [phone] BURKS,ALVARO ZHENGONY PATIENT MEDICARE (WNR) MEDICARE (M) PART B October 02, 2018 PART B [id number] [phone] KIMMIE,ALVARO SHELTON PATIENT Selected Encounter This section includes the information on record at [place] for the Encounter. Date/Time Encounter Type Encounter Description Reason Pro vider Source Mar 02, 2024 04:03 PM Outpatient Encounter ADMIN PAT ACTIVTIES (MASNONCT) IHE Encounter Template Text not used by [facility] Plan of Treatment: Future Appointments (+ 6 months) and Future Tests (+/- 45 days) The Plan of Treatment section includes future care activities for the patient from all [place] [facility]. This section includes future appointments and future orders which are active, pending or scheduled. Future Appointments This section includes appointments that were scheduled to occur 6 months from the date of the Encounter, up to a maximum of 20 appointments. The data comes from all [place] treatment facilities. Appointment Date/Time Appointment Type Appointme nt Facility Name Mar 06, 2024 01:00 PM AMBULATORY - REHAB MEDICIN E [facility] Mar 27, 2024 02:00 PM AMBULATORY - NONE [facility] Apr 02, 2024 01:45 PM [facility]ULATORY - MEDICINE [facility] Apr 02, 2024 02:20 PM [facility]ULATORY - MEDICINE [facility] Apr 02, 2024 03:45 PM AMBULATORY - REHAB MEDICIN E [facility] Apr 15, 2024 08:30 AM AMBULATORY - NONE [facility] May 22, 2024 07:30 AM AMBULATORY - NONE [facility] May 22, 2024 10:30 AM AMBULATORY - NONE [facility] Jun 18, 2024 01:00 PM [facility] Jul 05, 2024 06:18 AM [facility] Jul 31, 2024 01:30 PM [facility] Aug 06, 2024 04:15 PM AMBULATORY - REHAB MEDICIN E [facility] Aug 08, 2024 01:00 PM AMBULATORY - REHAB MEDICIN E [facility] Aug 12, 2024 10:45 AM AMBULATORY - REHAB MEDICIN E [facility] Aug 19, 2024 10:15 AM AMBULATORY - REHAB MEDICIN E [facility] Aug 21, 2024 01:30 PM AMBULATORY - REHAB MEDICIN E [facility] Aug 26, 2024 10:45 AM AMBULATORY - REHAB MEDICIN E [facility] Aug 28, 2024 09:30 AM AMBULATORY - REHAB MEDICIN E [facility] Aug 29, 2024 10:15 AM AMBULATORY - REHAB MEDICIN E [facility] Lab Results: +/- 30 days of the encounter This section includes the Chemistry and Hematology Lab Results on record with [place] for the patient. Radiology Reports and Pathology Reports are provided separately, in subsequent sections. Lab Results This section contains the Chemistry/Hematology Results that were resulted 30 days before or 30 daysafter the date of the Encounter. Date/Time Source Result Type Result - Unit Interpretation Reference Range Specimen Type Comment Feb 29, 2024 02:30 PM [facility] URINALYSIS URINE Specimen Type: URINE Comment: Microscopic Not Indicated Ordering Provider: HILARIO CABRAL Report Released Date/Time: Feb 29, 2024 01:30 PM Reporting Lab: [facility] [address] [facility] [address] Performing Lab: [facility] [address] [facility] [address] URINE COLOR Yellow Yellow URINE SPECIFIC GRAVITY 1.022 1.001-1.0 29 URINE BILIRUBIN Negative mg/dL Negative URINE KETONES Negative mg/dL Negative-Tr rachel UR GLUCOSE Normal mg/dL Normal UR PROTEIN Negative mg/dL URINE PH 5.5 5.0-8.0 CLARITY Clear Clear URINE BLOOD 0.03 mg/dL NITRITE, URINE Negative Negative LEUKOCYTE ESTERASE, URINE Negative URINE UROBILINOGEN Normal mg/dL Normal Feb 29, 2024 01:31 PM [facility] ALLERGEN FOOD PANEL SERUM Specimen Ty pe: SERUM Comment: TEST PERFORMED AT: [email or web address] [id number] Director: Joshua Medina MD, PhD, STEVE TEST PERFORMED AT: [employer] [place] [id number] Director: Joshua Medina MD, PhD, STEVE TEST PERFORMED AT: [employer] [address] [address] Director: Joshua Medina MD, PhD, STEVE TEST PERFORMED AT: [email or web address] [address] Director: Joshua Medina MD, PhD, STEVE TEST PERFORMED AT: [facility] [address] Director: Joshua Medina MD, PhD, STEVE TEST PERFORMED AT: [address] [address] Director: Joshua Medina MD, PhD, STEVE TEST PERFORMED AT: [address] [address] Director: Joshua Medina MD, PhD, STEVE TEST PERFORMED AT: [address] [address] Director: Joshua Medina MD, PhD, STEVE TEST PERFORMED AT: [address] [address] Director: Joshua Medina MD, PhD, STEVE TEST PERFORMED AT: [address] [address] Director: Joshua Medina MD, PhD, STEVE TEST PERFORMED AT: [address] [address] Director: Joshua Medina MD, PhD, STEVE TEST PERFORMED AT: [address] [address] Director: Joshua Medina MD, PhD, STEVE TEST PERFORMED AT: [address] [address] Director: Joshua Medina MD, PhD, STEVE TEST PERFORMED AT: [address] [address] Director: Joshua Medina MD, PhD, STEVE TEST PERFORMED AT: [address] [address] Director: Joshua Medina MD, PhD, STEVE TEST PERFORMED AT: [address] [address] Director: Joshua Medina MD, PhD, STEVE TEST PERFORMED AT: [address] [address] Director: Joshua Medina MD, PhD, STEVE TEST PERFORMED AT: [employer] [place] [phone] Director: Joshua Medina MD, PhD, STEVE TEST PERFORMED AT: [place] [phone] Director: Joshua Medina MD, PhD, STEVE TEST PERFORMED AT: [place] [address] Director: Joshua Medina MD, PhD, STEVE TEST PERFORMED AT: [place] [address] Director: Joshua Medina MD, PhD, STEVE TEST PERFORMED AT: [address] Director: Joshua Medina MD, PhD, STEVE TEST PERFORMED AT: [facility] [place] [address] Director: Joshua Medina MD, PhD, STEVE TEST PERFORMED AT: [employer] [address] Director: Joshua Medina MD, PhD, STEVE TEST PERFORMED AT: [place] [phone] Director: Joshua Medina MD, PhD, STEVE INTERPRETATION [...] intended for specialist use. TEST PERFORMED AT: [employer] [facility] [address] Director: Joshua Medina MD, PhD, STEVE TEST PERFORMED AT: TEST PERFORMED AT: [facility] [facility] [address] [address] [place] [address] Director: Joshua Medina MD, PhD, STEVE Director: Joshua Medina MD, PhD, STEVE Ordering Provider: HILARIO CABRAL Report Released Date/Time: Feb 29, 2024 01:30 PM Reporting Lab: [address] [address] Performing Lab: [facility] CA IGE TOTAL SERUM 43 kU/L 114 OR LESS Barley IgE <0.10 kU/L Beef IgE <0.10 kU/L Pepper C. annuum IgE <0.10 kU/L Cabbage IgE <0.10 kU/L Carrot IgE <0.10 kU/L Chicken IgE <0.10 kU/L Codfish IgE <0.10 kU/L [place] IgE <0.10 kU/L Crab IgE <0.10 kU/L Egg White IgE <0.10 kU/L Grape IgE <0.10 kU/L Lettuce IgE <0.10 kU/L Milk (Cow) IgE <0.10 kU/L Jane Recinos IgE <0.10 kU/L Oat IgE <0.10 kU/L [place] IgE <0.10 kU/L Peanut IgE <0.10 kU/L Potato IgE <0.10 kU/L Pork IgE <0.10 kU/L Rice IgE <0.10 kU/L [place] IgE <0.10 kU/L Shrimp IgE <0.10 kU/L Soybean IgE <0.10 kU/L Tomato IgE <0.10 kU/L Tuna IgE <0.10 kU/L Wheat IgE <0.10 kU/L Feb 29, 2024 01:31 PM [facility] QUANTIFERON (TUC/LB) BLOOD Specimen T ype: BLOOD Comment: A Negative result does not preclude the possibility of M. tuberculosis infection or tuberculosis disease: false-negative results can be due to the stage of infection (e.g., specimen obtained prior to the development of cellular immune response or other immunological variables). Ordering Provider: HILARIO CABRAL Report Released Date/Time: Feb 29, 2024 01:30 PM Reporting Lab: [facility] [address] [facility] [address] Performing Lab: [facility] [address] [address] QFT-Quantiferon Negative Negative QFT-NIL control 0.0619 [IU]/mL QFT-TB1 antigen 0.0000 [IU]/mL QFT-TB2 antigen 0.0080 [IU]/mL QFT-Mitogen control 9.9381 [IU]/mL Feb 29, 2024 01:31 PM [facility] HEMOGLOBIN A1C BLOOD Specimen Type: B LOOD Comment: [id number] Values obtained from A1C measurements can vary. For typical A1C assays, a reported value of 7.0 could actually be between 6.72 and 7.28 if measured by a reference method. A reported value of 9.0 could actually be between 8.73 and 9.27. Ref: https://ngsp.org/CAPdata.asp Ordering Provider: HILARIO CABRAL Report Released Date/Time: Feb 29, 2024 01:30 PM Reporting Lab: [address] [place] [address] Performing Lab: [address] [address] HEMOGLOBIN A1C 5.8 4.4-6.4 Feb 29, 2024 01:31 PM [facility] HEPATITIS C AB PANEL SERUM Specimen T ype: SERUM Comment: Since Total PSA value is considered truly negative, confirmatory Free PSA assay is not indicated. Ordering Provider: HILARIO CABRAL Report Released Date/Time: Feb 29, 2024 01:30 PM Reporting Lab: [place] [address] Performing Lab: [address] [address] HEPATITIS C ANTIBODY NEGATIVE <Negative Feb 29, 2024 01:31 PM [facility] LIPID STUDY (MUST BE FASTING) PLASMA S pecimen Type: PLASMA Comment: eGFR CKD-EPI eGFR calculated using the 2020 KDV-XRS-ybejuslczn equation; units of measure are mL/min/1.73m~2. eGFR [...] 29, 2024 01:30 PM Reporting Lab: [address] [address] Performing Lab: [address] [address] CHOLESTEROL 186 mg/dL 145-200 TRIGLYCERIDE 68 mg/dL 47-150 HDL 49 mg/dL 40-60 LDL-ABBY 123 mg/dL 0-130 Feb 29, 2024 01:31 PM [facility] CBC & DIFF BLOOD Specimen Type: BLOOD No comment entered. Ordering Provider: HILARIO CABRAL Report Released Date/Time: Feb 29, 2024 01:30 PM Reporting Lab: [address] [address] Performing Lab: [address] [address] WBC 7.0 10*3/uL 3.5-10.6 RBC 4.40 10*6/uL [...] 10*3/uL 0.00-0.07 Feb 29, 2024 01:31 PM [facility] COMPREHENSIVE METABOLIC PANEL PLASMA S pecimen Type: PLASMA Comment: eGFR CKD-EPI eGFR calculated using the 2020 CLH-WOP-yjbezvrtpo equation; units of measure are mL/min/1.73m~2. eGFR [...] 29, 2024 01:30 PM Reporting Lab: [address] [address] Performing Lab: [address] [address] BUN 15 mg/dL 7-20 GLUCOSE 98 mg/dL [...] L >90 Feb 29, 2024 01:31 PM [facility] TSH W/REFLEX FT4 PLASMA Specimen Type: PLASMA Comment: eGFR CKD-EPI eGFR calculated using the 2020 JMK-JFC-oeiruseeek equation; units of measure are mL/min/1.73m~2. eGFR [...] Feb 29, 2024 01:30 PM Reporting Lab: [facility] [address] [facility] [address] Performing Lab: [facility] [address] [facility] [address] TSH 1.246 u[IU]/mL 0.500-5.000 Feb 29, 2024 01:31 PM [facility] VITAMIN D (25-OH VITAMIN D) SCREEN PLASMA Specimen Type: PLASMA No comment entered. Ordering Provider: HILARIO CABRAL Report Released Date/Time: Feb 29, 2024 01:30 PM Reporting Lab: [address] [address] Performing Lab: [address] [address] VITAMIN D (25-OH VITAMIN D) SCREEN 24.2 ng/mL L 30.0-60.0 Feb 29, 2024 01:31 PM [facility] PSA /Reflex Free PSA SERUM Specimen T ype: SERUM Comment: Since Total PSA value is considered truly negative, confirmatory Free PSA assay is not indicated. Ordering Provider: HILARIO CABRAL Report Released Date/Time: Feb 29, 2024 01:30 PM Reporting Lab: [address] [address] Performing Lab: [address] [address] PSAg 2.18 ng/mL 0.01-4.00 Social History: Smoking Status (Most current) and Tobacco Use (All prior to encounter date) This section includes the most current, and the historical, smoking and tobacco- related health factors from the [place] facility where the Encounter took place. Current Smoking Status This section includes the most current smoking, or tobacco-related health factor, from the [place] facility where the Encounter took place. Date/Time Current Smoking Status Comment Bautista ity Jan 04, 2017 03:31 PM CURRENT TOBACCO USER [facility] Tobacco Use History This section includes a history of the smoking, or tobacco-related health factors, that were collected on or before the date of the Encounter. The data comes from the [place] facility where the Encounter took place. Date/Time Smoking Status/Tobacco Use Comment F acility Jan 04, 2017 03:31 PM TOB INFO ON NON-VA STOP SMOKING CLINIC [facility] Jan 04, 2017 03:31 PM TOBACCO OFFERED PT MEDS (PROVIDE R) [facility] May 31, 2011 09:24 AM QUIT TOBACCO IN THE LAST 12 OCTAVIO [facility] Advance Directives: All historical and current Section Date Range: From patient's date of to the date document was created. This section includes ALL of a patient's completed or amended [place] Advance and Rescinded Directives. The entries below indicate that a directive exists for the patient, but an actual copy is not included with this document. The data comes from all [place] facilities. Date Advance Directives Provider Source Jun 13, 2023 ADVANCE DIRECTIVE DISCUSSION VÍCTOR HAMPTON [facility] Jan 16, 2008 ADVANCE DIRECTIVE ROBERTA GARCIA [facility] Jan 16, 2008 ADVANCE DIRECTIVE RALPH DE DIOS [facility] Radiology Reports: +/- 30 days [...] the Encounter. The data comes from all [place] treatment facilities. 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 Stable exam compared to 2019. [facility] Primary Diagnostic Code: Primary Interpreting Staff: HOUSTON MILLER RADIOLOGIST Verified by lithographic printing machinist for HOUSTON MILLER /[facility] Mar 27, 2024 01:23 PM KNEE 4 OR MORE VIE WS (RIGHT): ROSE MARY BURKS [id number] -1955 M Exm Date: MAR 27, 2024@13:23 Req Phys: HILARIO CABRAL Loc: ADMINISTRATIVE CONTACT (Req'g Img Loc: H-MAIN-X Service: [place] [facility] [address] (Case [id number] COMPLETE)KNEE 4 OR MORE VIEWS (RIGHT) (RAD Detailed) CPT:89647 Reason for Study: djd Clinical History: 68 y.o male w/ lumbar and L knee pain, keep falling when walks Report Status: Verified Date Reported: MAR 27, 2024 Date Verified: MAR 27, 2024 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 Stable exam compared to 2019. [facility] Primary Diagnostic Code: Primary Interpreting Staff: HOUSTON MILLER RADIOLOGIST Verified by lithographic printing machinist for HOUSTON MILLER /[facility] Mar 27, 2024 01:22 PM HIP 2-3 VIEWS (LEF T): ROSE MARY BURKS [id number] -1955 M Exm Date: MAR 27, 2024@13:22 Req Phys: MARIANNAFANTA Pat Loc: [facility] SW PACT SEROLOGIST 6 (Req'g Loc) Img Loc: H-MAIN-X Service: [place] [address] (Case [id number] COMPLETE)HIP 2-3 VIEWS (LEFT) (RAD Detailed) CPT:13973 Reason for Study: Pain and falls Clinical History: Pain and falls Report Status: Verified Date Reported: MAR 27, 2024 Date Verified: MAR 27, 2024 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 [facility] Primary Diagnostic Code: Primary Interpreting Staff: HOUSTON MILLER, RADIOLOGIST Verified by lithographic printing machinist for HOUSTON MILLER /HOUSTON ANGUIANO [facility] Mar 27, 2024 12:50 PM LDCT LUNG CANCER S CREENING: ROSE MARY BURKS KATHY [id number] -1955 M Exm Date: MAR 27, 2024@12:50 Req Phys: HILARIO CABRAL Pat Loc: [facility] SW PACT SEROLOGIST 6 (Req'g Loc) Img Loc: [facility]-COMPUTED TOMOGRAPHY-X Service: [place] [address] (Case [id number] COMPLETE)LDCT LUNG CANCER SCREENING (CT Detailed) CPT:29250 Reason for Study: lung cancer screening Clinical History: Vet was on the lung cancer screening , last chest CT WAS 01/02/2023, HE MOVED TO [place], JUST MOVED BACK HERE NOW. 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 Di Anguiano, Delroy MAURICE, Conrad Aguirre, et al. Ordinal scoring of coronary artery calcifications on low-dose CT scans of the chest is predictive of from cardiovascular disease. Radiology. 2010; 257: 541-8. 2. Bryant Y, Fermin HWOARD, Delroy MAURICE, et al. Coronary artery calcification on low-dose computed tomography: comparison of [place] and Ordinal Scores. Clinical imaging. 2015; 39: 799-802. *3. Expert Work Group Members. 2016 SCCT/STR Guidelines for Coronary Artery Calcium Scoring of Noncontrast Noncardiac CT Scans. A report of the Society of Cardiovascular Computed Tomography / Society of Thoracic Radiology. [facility] Primary Diagnostic Code: LUNGRADS 2: BENIGN APPEARANCE OR BEHAVIOR Primary Interpreting Staff: ANDREW SAMS MD, RADIOLOGIST Verified by lithographic printing machinist for ANDREW SAMS MD /ANDREW LIRIANO [facility] Feb 14, 2024 08:[address] LUMBAR SPINE W/ O CONT: ROSE MARY BURKS [id number] -1955 M Exm Date: FEB 14, 2024@20:53 Req Phys: BRAYAN VICTORIA Loc: [facility]/4PM-12M (Re Img Loc: [facility]-COMPUTED TOMOGRAPHY-X Service: [place] [address] (Case [id number] COMPLETE)CT LUMBAR SPINE W/O CONT (CT Detailed) CPT:54880 Reason for Study: l sciatica Clinical History: Report Status: Verified Date Reported: FEB 14, 2024 Date Verified: FEB 14, 2024 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 [facility] Primary Diagnostic Code: Primary Interpreting Staff: LAUREN ARROYO MD, RADIOLOGIST Verified by lithographic printing machinist for LAUREN ARROYO MD /LAUREN DURAN [facility] Feb 05, 2024 08:27 PM KNEE 4 OR MORE VIE WS (LEFT): ROSE MARY BURKS KATHY [id number] -1955 M Exm Date: FEB 05, 2024@20:27 Req Phys: TAMIKA TRIVEDI Loc: [facility]/4PM-12M (Re Img Loc: H-MAIN-X Service: [place] [address] (Case [id number] COMPLETE) KNEE 4 OR MORE VIEWS (LEFT) (RAD Detailed) CPT:30274 Reason for Study: worsening chronic pain Clinical History: Report Status: Verified Date Reported: FEB 05, 2024 Date Verified: FEB 05, 2024 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 [facility] Primary Diagnostic Code: Primary Interpreting Staff: LAUREN ARROYO MD, RADIOLOGIST Verified by lithographic printing machinist for LAUREN ARROYO MD /LAUREN DURAN [facility] Encounter Notes: All associated encounter notes This section contains the clinical notes associated to the Encounter. Date/Time Encounter Note(s) Provider Source Mar 02, 2024 04:28 PM TELEPHONE ENCOUNTE R NOTE: LOCAL TITLE: TELEPHONE CONTACT STANDARD TITLE: TELEPHONE ENCOUNTER NOTE DATE OF NOTE: MAR 02, 2024@16:28 ENTRY DATE: MAR 02, 2024@16:28:53 AUTHOR: HILARIO CABRAL EXP COSIGNER: URGENCY: STATUS: COMPLETED [address] [place], [place] [address] Patient RN, please let vet know that his vitamin D is low, start weekly vitamin d2- Ergocalciferol 1 cap po qwk/mail, his lipid 124 above goal <70)(is still high, d/c Atorvastatin 80MG, replaced it w/ Rrosuvastatin (Crestor) 20MG po qhs/mail, repeat fasting labs in 3 months. thx /kallie/ HILARIO CABRAL DNP, ANP-C NURSE PRACTITIONER Signed: 03/02/2024 16:32 Receipt Acknowledged By: 03/03/2024 09:47 /kallie/ CHRISTI BENAVIDEZ RN final operations technician HILARIO CABRAL [facility]
--- OUTSIDE RECORDS SUMMARY | 2024-03-07 07:21 | XMS_ITS | Encounter Summary ---
Author Name [facility] [facility] [place] [facility] [place] Address [address] [place] [address] Care Team Providers Care Digital Analytics Manager Name Role Phone AMANDEEP PETERS Primary [...] PART A May 04, 2019 PART A [id number] KIMMIE,ALVARO SHELTON PATIENT MEDICARE (WNR) MEDICARE (M) PART B May 04, 2019 PART B [id number] BURKS,AN CAT PATIENT MEDICARE (WNR) MEDICARE (M) PART A October 02, 2018 PART A [id number] KIMMIE,ALVARO ZHENGONY PATIENT MEDICARE (WNR) MEDICARE (M) PART B October 02, 2018 PART B [id number] KIMMIE,ALVARO SHELTON PATIENT Selected Encounter This section includes the information on record at [place] for the Encounter. Date/Time Encounter Type Encounter Description Reason Provider Source Mar 07, 2024 11:21 AM Outpatient Encounter ADMIN PAT ACTIVTIES (MASNONCT) CALLIE SMITH Encounter Template Text not used by [place] Plan of Treatment: Future Appointments (+ 6 months) and Future Tests (+/- 45 days) The Plan of Treatment section includes future care activities for the [facility] [place] [facility] This section includes future appointments and future orders which are active, pending or scheduled. Future Appointments This section includes appointments that were scheduled to occur 6 months from the date of the Encounter, up to a maximum of 20 appointments. The data comes from all [place] treatment facilities. Appointment Date/Time Appointment Type Appointme nt Facility Name Mar 27, 2024 02:00 PM [facility] Apr 02, 2024 01:45 PM [facility] Apr 02, 2024 02:20 PM [facility] Apr 02, 2024 03:45 PM AMBULATORY - [facility]HAB [facility] Apr 15, 2024 08:30 AM [facility] May 22, 2024 07:30 AM [facility] May 22, 2024 10:30 AM AM[facility]ORY - NONE [facility] Jun 18, 2024 01:00 PM [facility] Jul 05, 2024 06:18 AM [facility] Jul 31, 2024 01:30 PM [facility] Aug 06, 2024 04:15 PM AMBULATORY - RE[facility]AB [facility] Aug 08, 2024 01:00 PM AMBULATORY - REHAB MEDICIN E [facility] Aug 12, 2024 10:45 AM AMBULATORY - REHAB MEDICIN E [facility] Aug 19, 2024 10:15 AM AMBULATORY - REHAB MEDICIN E [facility] Aug 21, 2024 01:30 PM AMBULATORY - REHAB MEDICIN E [facility] Aug 26, 2024 10:45 AM AMBULATORY - REHAB MEDICIN E [facility] Aug 28, 2024 09:30 AM AMBULATORY - REHAB MEDICIN E [facility] Aug 29, 2024 10:15 AM AMBULATORY - REHAB MEDICIN E [facility] Sep 02, 2024 01:00 PM [facility] Lab Results: +/- 30 days of [...] Type Comment Feb 29, 2024 02:30 PM [facility] URINALYSIS URINE Specimen Type: URINE Comment: Microscopic Not Indicated Ordering Provider: HILARIO CABRAL Report Released Date/Time: Feb 29, 2024 01:30 PM Reporting Lab: [address] [address] Performing Lab: [address] [address] URINE COLOR Yellow Yellow URINE SPECIFIC GRAVITY 1.022 1.001-1.0 29 URINE BILIRUBIN Negative mg/dL Negative URINE KETONES Negative mg/dL Negative-Tr rachel UR GLUCOSE Normal mg/dL Normal UR PROTEIN Negative mg/dL URINE PH 5.5 5.0-8.0 CLARITY Clear Clear URINE BLOOD 0.03 mg/dL NITRITE, URINE Negative Negative LEUKOCYTE ESTERASE, URINE Negative URINE UROBILINOGEN Normal mg/dL Normal Feb 29, 2024 01:31 PM [facility] ALLERGEN FOOD PANEL SERUM Specimen Ty pe: SERUM Comment: TEST PERFORMED AT: [employer] [place] [address] Director: Joshua Medina MD, PhD, STEVE TEST PERFORMED AT: [employer] [address] Director: Joshua Medina MD, PhD, STEVE TEST PERFORMED AT: [employer] [address] Director: Joshua Medina MD, PhD, STEVE TEST PERFORMED AT: [employer] [address] [address] Director: Joshua Medina MD, PhD, STEVE TEST PERFORMED AT: [employer] [address] [address] Director: Joshua Medina MD, PhD, STEVE TEST PERFORMED AT: [employer] [address] [address] Director: Joshua Medina MD, PhD, STEVE TEST PERFORMED AT: [address] [address] Director: Joshua Medina MD, PhD, STEVE TEST PERFORMED AT: [address] [address] Director: Joshua Medina MD, PhD, STEVE TEST PERFORMED AT: [address] [address] Director: Joshua Medina MD, PhD, STEVE TEST PERFORMED AT: [address] [address] Director: Joshua Medina MD, PhD, STEVE TEST PERFORMED AT: [address] [address] Director: Joshua Medina MD, PhD, STEVE TEST PERFORMED AT: [address] [address] Director: Joshua Medina MD, PhD, STEVE TEST PERFORMED AT: [address] [address] Director: Joshua Medina MD, PhD, STEVE TEST PERFORMED AT: [address] [address] Director: Joshua Medina MD, PhD, STEVE TEST PERFORMED AT: [address] [address] Director: Joshua Medina MD, PhD, STEVE TEST PERFORMED AT: [address] [address] Director: Joshua Medina MD, PhD, STEVE TEST PERFORMED AT: [address] [address] Director: Joshua Medina MD, PhD, STEVE TEST PERFORMED AT: [employer] [place] [address] Director: Joshua Medina MD, PhD, STEVE TEST PERFORMED AT: [facility] [employer] [place] [address] Director: Joshua Medina MD, PhD, STEVE TEST PERFORMED AT: [facility] [employer] [place] [address] Director: Josuha Medina MD, PhD, STEVE TEST PERFORMED AT: [employer] [place] [address] Director: Joshua Medina MD, PhD, STEVE TEST PERFORMED AT: [facility] [employer] [place] [address] Director: Joshua Medina MD, PhD, STEVE TEST PERFORMED AT: [place] [address] Director: Joshua Medina MD, PhD, STEVE TEST PERFORMED AT: [place] [address] Director: Joshua Medina MD, PhD, STEVE TEST PERFORMED AT: [employer] [address] Director: Joshua Medina MD, PhD, STEVE [...] intended for specialist use. TEST PERFORMED AT: [employer] [address] [address] Director: Joshua Medina MD, PhD, STEVE TEST PERFORMED AT: TEST PERFORMED AT: [employer] [facility] [employer] [address] [address] [place] [address] Director: Joshua Medina MD, PhD, STEVE Director: Joshua Medina MD, PhD, STEVE Ordering Provider: HILARIO CABRAL Report Released Date/Time: Feb 29, 2024 01:30 PM Reporting Lab: [address] [address] Performing Lab: [facility] CA IGE TOTAL SERUM 43 kU/L 114 OR LESS Barley IgE <0.10 kU/L Beef IgE <0.10 kU/L Pepper C. annuum IgE <0.10 kU/L Cabbage IgE <0.10 kU/L Carrot IgE <0.10 kU/L Chicken IgE <0.10 kU/L Codfish IgE <0.10 kU/L [place] IgE <0.10 kU/L Crab IgE <0.10 kU/L Egg White IgE <0.10 kU/L Grape IgE <0.10 kU/L Lettuce IgE <0.10 kU/L Milk (Cow) IgE <0.10 kU/L [place] Recinos IgE <0.10 kU/L Oat IgE <0.10 kU/L Sandy IgE <0.10 kU/L Peanut IgE <0.10 kU/L Potato IgE <0.10 kU/L Pork IgE <0.10 kU/L Rice IgE <0.10 kU/L [place] IgE <0.10 kU/L Shrimp IgE <0.10 kU/L Soybean IgE <0.10 kU/L Tomato IgE <0.10 kU/L Tuna IgE <0.10 kU/L Wheat IgE <0.10 kU/L Feb 29, 2024 01:31 PM [facility] QUANTIFERON (TUC/LB) BLOOD Specimen T ype: BLOOD Comment: A Negative result does not preclude the possibility of M. tuberculosis infection or tuberculosis disease: false-negative results can be due to the stage of infection (e.g., specimen obtained prior to the development of cellular immune response or other immunological variables). Ordering Provider: HILARIO CABRAL Report Released Date/Time: Feb 29, 2024 01:30 PM Reporting Lab: [address] [address] Performing Lab: [facility] [address] [address] QFT-Quantiferon Negative Negative QFT-NIL control 0.0619 [IU]/mL QFT-TB1 antigen 0.0000 [IU]/mL QFT-TB2 antigen 0.0080 [IU]/mL QFT-Mitogen control 9.9381 [IU]/mL Feb 29, 2024 01:31 PM [facility] HEMOGLOBIN A1C BLOOD Specimen Type: B LOOD Comment: [id number] Values obtained from A1C measurements can vary. For typical A1C assays, a reported value of 7.0 could actually be between 6.72 and 7.28 if measured by a reference method. A reported value of 9.0 could actually be between 8.73 and 9.27. Ref: https://ngsp.org/CAPdata.asp Ordering Provider: HILARIO CABRAL Report Released Date/Time: Feb 29, 2024 01:30 PM Reporting Lab: [address] [address] Performing Lab: [address] [address] HEMOGLOBIN A1C 5.8 4.4-6.4 Feb 29, 2024 01:31 PM [facility] HEPATITIS C AB PANEL SERUM Specimen T ype: SERUM Comment: Since Total PSA value is considered truly negative, confirmatory Free PSA assay is not indicated. Ordering Provider: HILARIO CABRAL Report Released Date/Time: Feb 29, 2024 01:30 PM Reporting Lab: [address] [place] [address] Performing Lab: [address] [address] HEPATITIS C ANTIBODY NEGATIVE <Negative Feb 29, 2024 01:31 PM [facility] TSH W/REFLEX FT4 PLASMA Specimen Type: PLASMA Comment: eGFR CKD-EPI eGFR calculated using the 2020 JLO-XKX-nahfhsmckv equation; units of measure are mL/min/1.73m~2. eGFR [...] 29, 2024 01:30 PM Reporting Lab: [address] [address] Performing Lab: [address] [address] TSH 1.246 u[IU]/mL 0.500-5.000 Feb 29, 2024 01:31 PM [facility] LIPID STUDY (MUST BE FASTING) PLASMA S pecimen Type: PLASMA Comment: eGFR CKD-EPI eGFR calculated using the 2020 IKW-KKV-iecikwcoud equation; units of measure are mL/min/1.73m~2. eGFR [...] 29, 2024 01:30 PM Reporting Lab: [address] [address] Performing Lab: [address] [address] CHOLESTEROL 186 mg/dL 145-200 TRIGLYCERIDE 68 mg/dL 47-150 HDL 49 mg/dL 40-60 LDL-ABBY 123 mg/dL 0-130 Feb 29, 2024 01:31 PM [facility] CBC & DIFF BLOOD Specimen Type: BLOOD No comment entered. Ordering Provider: HILARIO CABRAL Report Released Date/Time: Feb 29, 2024 01:30 PM Reporting Lab: [address] [address] Performing Lab: [address] [address] WBC 7.0 10*3/uL 3.5-10.6 RBC 4.40 10*6/uL [...] 10*3/uL 0.00-0.07 Feb 29, 2024 01:31 PM [facility] PSA /Reflex Free PSA SERUM Specimen T ype: SERUM Comment: Since Total PSA value is considered truly negative, confirmatory Free PSA assay is not indicated. Ordering Provider: HILARIO CABRAL Report Released Date/Time: Feb 29, 2024 01:30 PM Reporting Lab: [address] [address] Performing Lab: [address] [address] PSAg 2.18 ng/mL 0.01-4.00 Feb 29, 2024 01:31 PM [facility] VITAMIN D (25-OH VITAMIN D) SCREEN PLASMA Specimen Type: PLASMA No comment entered. Ordering Provider: HILARIO CABRAL Report Released Date/Time: Feb 29, 2024 01:30 PM Reporting Lab: [address] [place] [address] Performing Lab: [address] [address] VITAMIN D (25-OH VITAMIN D) SCREEN 24.2 ng/mL L 30.0-60.0 Feb 29, 2024 01:31 PM [facility] COMPREHENSIVE METABOLIC PANEL PLASMA S pecimen Type: PLASMA Comment: eGFR CKD-EPI eGFR calculated using the 2020 IUR-UJR-gctjakbysz equation; units of measure are mL/min/1.73m~2. eGFR [...] 29, 2024 01:30 PM Reporting Lab: [address] [address] Performing Lab: [address] [address] BUN 15 mg/dL 7-20 GLUCOSE 98 mg/dL [...] 0.72-1.25 eGFR (CKD-EPI) 88 mL/min/{1.73_m2} L >90 Social History: Smoking Status (Most current) and Tobacco Use (All prior to encounter date) This section includes the most current, and the historical, smoking and tobacco- related health factors from the [place] facility where the Encounter took place. Current Smoking Status This section includes the most current smoking, or tobacco-related health factor, from the [place] facility where the Encounter took place. Date/Time Current Smoking Status Comment Bautista ity Jun 13, 2023 10:00 AM [place]-TOBACCO FORMER USER [facility] Tobacco Use History This section includes a history of the smoking, or tobacco-related health factors, that were collected on or before the date of the Encounter. The data comes from the [place] facility where the Encounter took place. Date/Time Smoking Status/Tobacco Use Comment F acility Jun 13, 2023 10:00 AM [place]-TOBACCO QUIT < 1 YEAR [facility] Advance Directives: All historical and current Section Date Range: From patient's date of to the date document was created. This section includes ALL of a patient's completed or amended [place] Advance and Rescinded Directives. The entries below indicate that a directive exists for the patient, but an actual copy is not included with this document. The data comes from all [place] facilities. Date Advance Directives Provider Source Jun 13, 2023 ADVANCE DIRECTIVE DISCUSSION VÍCTOR HAPMTON [facility] Jan 16, 2008 ADVANCE DIRECTIVE ROBERTA GARCIA [facility] Jan 16, 2008 ADVANCE DIRECTIVE RALPH DE DIOS [facility] Radiology Reports: +/- 30 days of [...] the Encounter. The data comes from all [place] treatment facilities. Date/Time Radiology Report Provider Source Mar 27, 2024 01:23 PM KNEE 4 OR MORE VIE WS (RIGHT): ROSE MARY BURKS [id number] -1955 M Ex Date: MAR 27, 2024@13:23 Req Phys: HILARIO CABRAL Loc: ADMINISTRATIVE CONTACT (Req'g Img Loc: H-MAIN-X Service: [place] [address] (Case [id number] COMPLETE)KNEE 4 OR MORE VIEWS (RIGHT) (RAD Detailed) CPT:68369 Reason for Study: djd Clinical History: 68 y.o male w/ lumbar and L knee pain, keep falling when walks Report Status: Verified Date Reported: MAR 27, 2024 Date Verified: MAR 27, 2024 Acquisitions Librarian E-Sig: Report: EXAM: KNEE 4 OR MORE [...] space narrowing in the medial compartment with ysng-xu-ypggwzjm joint space narrowing in the lateral compartment. Stable exam compared to 2019. [facility] Primary Diagnostic Code: Primary Interpreting Staff: HOUSTON MILLER, RADIOLOGIST Verified by bellman for HOUSTON MILLER [facility] Mar 27, 2024 01:23 PM KNEE 4 OR MORE VIE WS (LEFT): ROSE MARY BURKS [id number] -1955 M Exm Date: MAR 27, 2024@13:23 Req Phys: MARIANNASOTA Pat Loc: ADMINISTRATIVE CONTACT (Req'g Img Loc: H-MAIN-X Service: [place] [address] (Case [id number] COMPLETE)KNEE 4 OR MORE VIEWS (LEFT) (RAD Detailed) CPT:59931 Reason for Study: djd Clinical History: 68 y.o male w/ lumbar and L knee pain, keep falling when walks Report Status: Verified Date Reported: MAR 27, 2024 Date Verified: MAR 27, 2024 Acquisitions Librarian E-Sig: Report: EXAM: KNEE 4 OR MORE [...] space narrowing in the medial compartment with dxkq-gd-miojwdoy joint space narrowing in the lateral compartment. Stable exam compared to 2019. 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 Report Status: Verified Date Reported: MAR 28, 2024 Date Verified: MAR 28, 2024 Acquisitions Librarian E-Sig: Report: Clinical Information: 68-year-old male presenting [...] r/o obstruction; Aggressive BP lowering; Referral to radio officer or preventive equipment maintenance engineer 1. Di Anguiano, Delroy MAURICE, Conrad Aguirre, et al. Ordinal scoring of coronary artery calcifications on low-dose CT scans of the chest is predictive of from cardiovascular disease. Radiology. 2010; 257: 541-8. 2. Bryant YFermin MD, Delroy MAURICE, et al. Coronary artery calcification on low-dose computed tomography: comparison of [place] and Ordinal Scores. Clinical imaging. 2015; 39: 799-802. *3. Expert Work Group Members. 2016 SCCT/STR Guidelines for Coronary Artery Calcium Scoring of Noncontrast Noncardiac CT Scans. A report of the Society of Cardiovascular Computed Tomography / Society of Thoracic Radiology. [facility] Primary Diagnostic Code: LUNGRADS 2: BENIGN APPEARANCE OR BEHAVIOR Primary Interpreting Staff: ANDREW SAMS MD, RADIOLOGIST Verified by bellman for ANDREW SAMS MD /ANDREW LIRIANO [facility] Feb 14, 2024 08:[address] LUMBAR SPINE W/ O CONT: ROSE MARY BURKS [facility] [id number] -1955 M Exm Date: FEB 14, 2024@20:53 Req Phys: BRAYAN VICTORIA Pat Loc: [facility]PT/4PM-12M (Re Img Loc: [facility]-COMPUTED TOMOGRAPHY-X Service: [place] [address] (Case [id number] COMPLETE)CT LUMBAR SPINE W/O CONT (CT Detailed) CPT:06805 Reason for Study: l sciatica Clinical History: Report Status: Verified Date Reported: FEB 14, 2024 Date Verified: FEB 14, 2024 Acquisitions Librarian E-Sig: Report: Clinical history: Low back pain [...] the right and moderate-severe on the left. [facility] Primary Diagnostic Code: Primary Interpreting Staff: LAUREN ARROYO MD, RADIOLOGIST Verified by bellman for LAUREN ARROYO MD /LAUREN DURAN [facility] Encounter Notes: All associated encounter notes This section contains the clinical notes associated to the Encounter. Date/Time Encounter Note(s) Provider Source Mar 07, 2024 11:21 AM NURSING NOTE: LOCAL TITLE: [facility] TRAVELING/RELOCATING COORDINATOR NOTE STANDARD TITLE: NURSING NOTE DATE OF NOTE: MAR 07, 2024@11:21 ENTRY DATE: MAR 07, 2024@11:21:08 AUTHOR: JOHN SMITH COSIGNER: URGENCY: STATUS: COMPLETED Relocation request received on [facility] Web. Chart reviewed. [place] has transferred care from [facility] to [facility] on 02.29.24 Relocation request APPROVED on [facility] Web. /kallie/ JOHN SMITH RN Signed: 03/07/2024 11:21 JOHN SMITH [facility]
--- OUTSIDE RECORDS SUMMARY | 2024-03-21 04:43 | XMS_ITS | Encounter Summary ---
Author Name [facility] [place] Organization [facility] [place] Address [address] [place] [address] Care Team Providers Care Predatory Game Hunter Name Role Phone AMANDEEP PETERS Primary Care [...] PART A May 04, 2019 PART A [id number] KIMMIE,ALVARO SHELTON PATIENT MEDICARE (WNR) MEDICARE (M) PART B May 04, 2019 PART B [id number] BURKS,AN CAT PATIENT MEDICARE (WNR) MEDICARE (M) PART B October 02, 2018 PART B [id number] BURKS,ALVARO ZHENGONY PATIENT MEDICARE (WNR) MEDICARE (M) PART A October 02, 2018 PART A [id number] ALVARO BURKS CAT PATIENT Selected Encounter This section includes the information on record at [place] for the Encounter. Date/Time Encounter Type Encounter Description Reason Pro vider Source Mar 21, 2024 08:43 AM Outpatient Encounter PRIMARY CARE/MEDICINE IHE Encounter Template Text not used by [place] Plan of Treatment: Future Appointments (+ 6 months) and Future Tests (+/- 45 days) The Plan of Treatment section includes future care activities for the patient from [facility] [place] [facility]. This section includes future appointments and future orders which are active, pending or scheduled. Future Appointments This section includes appointments that were scheduled to occur 6 months from the date of the Encounter, up to a maximum of 20 appointments. The data comes from all [place] treatment facilities. Appointment Date/Time Appointment Type Appointme nt Facility Name Mar 27, 2024 02:00 PM AMB[facility]ORY - NONE [facility] Apr 02, 2024 01:45 PM [facility] Apr 02, 2024 02:20 PM [facility] Apr 02, 2024 03:45 PM AMBULATORY - REHAB MEDICIN E [facility] Apr 15, 2024 08:30 AM AMBULATORY - NONE [facility] May 22, 2024 07:30 AM AMBULATORY - NONE [facility] May 22, 2024 10:30 AM AMBULATORY - NONE [facility] Jun 18, 2024 01:00 PM [facility] Jul 05, 2024 06:18 AM [facility] Jul 31, 2024 01:30 PM [facility] Aug 06, 2024 04:15 PM AMBULATORY - REHAB MEDICIN E [facility] Aug 08, 2024 01:00 PM AMBULATORY - REHAB MEDICIN E [facility] Aug 12, 2024 10:45 AM AMBULATORY - REHAB MEDICIN E [facility] Aug 19, 2024 10:15 AM AMBULATORY - REHAB MEDICIN E [facility] Aug 21, 2024 01:30 PM AMBULATORY - REHAB MEDICIN E [facility] Aug 26, 2024 10:45 AM AMBULATORY - REHAB MEDICIN E [facility] Aug 28, 2024 09:30 AM AMBULATORY - REHAB MEDICIN E [facility] Aug 29, 2024 10:15 AM AMBULATORY - REHAB MEDICIN E [facility] Sep 02, 2024 01:00 PM [facility] Sep 11, 2024 02:45 PM AMBULATORY - REHAB MEDICIN E [facility] Lab Results: +/- 30 days of the encounter This section includes the Chemistry and Hematology Lab Results on record with [place] for the patient. Radiology Reports and Pathology Reports are provided separately, in subsequent sections. Lab Results This section contains the Chemistry/Hematology Results that were resulted 30 days before or 30 daysafter the date of the Encounter. Date/Time Source Result Type Result - Unit Interpretation Reference Range Specimen Type Comment Feb 29, 2024 02:30 PM [facility] URINALYSIS URINE Specimen Type: URINE Comment: Microscopic Not Indicated Ordering Provider: HILARIO CABRAL Report Released Date/Time: Feb 29, 2024 01:30 PM Reporting Lab: [address] [address] Performing Lab: [address] [address] URINE COLOR Yellow Yellow URINE SPECIFIC GRAVITY 1.022 1.001-1.0 29 URINE BILIRUBIN Negative mg/dL Negative URINE KETONES Negative mg/dL Negative-Tr rachel UR GLUCOSE Normal mg/dL Normal UR PROTEIN Negative mg/dL URINE PH 5.5 5.0-8.0 CLARITY Clear Clear URINE BLOOD 0.03 mg/dL NITRITE, URINE Negative Negative LEUKOCYTE ESTERASE, URINE Negative URINE UROBILINOGEN Normal mg/dL Normal Feb 29, 2024 01:31 PM [facility] ALLERGEN FOOD PANEL SERUM Specimen Ty pe: SERUM Comment: [facility] [id number] Director: Joshua Medina MD, PhD, STEVE TEST PERFORMED AT: [facility] [address] [address] Director: Joshua Medina MD, PhD, STEVE TEST PERFORMED AT: [facility] [address] [address] Director: Joshua Medina MD, PhD, STEVE TEST PERFORMED AT: [facility] [address] Director: Joshua Medina MD, PhD, STEVE TEST PERFORMED AT: [facility] [address] [address] Director: Joshua Medina MD, PhD, STEVE TEST PERFORMED AT: [address] [address] Director: Joshua Medina MD, PhD, STEVE TEST PERFORMED AT: [address] [address] Director: Joshua Medina MD, PhD, STEVE TEST PERFORMED AT: [address] [address] Director: Joshua Medina MD, PhD, STEVE TEST PERFORMED AT: [address] [address] Director: Joshua Medina MD, PhD, STEVE TEST PERFORMED AT: [address] [address] Director: Joshua Medina MD, PhD, STEVE TEST PERFORMED AT: [address] [address] Director: Joshua Medina MD, PhD, STEVE TEST PERFORMED AT: [address] [address] Director: Joshua Medina MD, PhD, STEVE TEST PERFORMED AT: [address] [address] Director: Joshua Medina MD, PhD, STEVE TEST PERFORMED AT: [address] [address] Director: Joshua Medina MD, PhD, STEVE TEST PERFORMED AT: [address] [address] Director: Joshua Medina MD, PhD, STEVE TEST PERFORMED AT: [address] [address] Director: Joshua Medina MD, PhD, STEVE TEST PERFORMED AT: [address] [address] Director: Joshua Medina MD, PhD, STEVE TEST PERFORMED AT: [facility] [place] [id number] Director: Joshua Medina MD, PhD, STEVE TEST PERFORMED AT: [facility] [place] [id number] Director: Joshua Medina MD, PhD, STEVE TEST PERFORMED AT: [facility] [address] Director: Joshua Medina MD, PhD, STEVE TEST PERFORMED AT: [facility] [address] Director: Joshua Medina MD, PhD, STEVE TEST PERFORMED AT: [facility] [address] Director: Joshua Medina MD, PhD, STEVE TEST PERFORMED AT: [facility] [address] Director: Joshua Medina MD, PhD, STEVE TEST PERFORMED AT: [facility] [address] Director: Joshua Medina MD, PhD, SETVE TEST PERFORMED AT: [facility] [address] Director: Joshua Medina MD, PhD, STEVE [...] intended for specialist use. TEST PERFORMED AT: [facility] [address] [address] Director: Joshua Medina MD, PhD, STEVE TEST PERFORMED AT: TEST PERFORMED AT: [facility] [address] [address] [place] [address] Director: Joshua Medina MD, PhD, STEVE Director: Joshua Medina MD, PhD, STEVE Ordering Provider: HILARIO CABRAL Report Released Date/Time: Feb 29, 2024 01:30 PM Reporting Lab: [address] [address] Performing Lab: [facility] CA IGE TOTAL SERUM 43 kU/L 114 OR LESS Barley IgE <0.10 kU/L Beef IgE <0.10 kU/L Pepper C. annuum IgE <0.10 kU/L Cabbage IgE <0.10 kU/L Carrot IgE <0.10 kU/L Chicken IgE <0.10 kU/L Codfish IgE <0.10 kU/L [place] IgE <0.10 kU/L Crab IgE <0.10 kU/L Egg White IgE <0.10 kU/L Grape IgE <0.10 kU/L Lettuce IgE <0.10 kU/L Milk (Cow) IgE <0.10 kU/L [place] IgE <0.10 kU/L Oat IgE <0.10 kU/L [place] IgE <0.10 kU/L Peanut IgE <0.10 kU/L Potato IgE <0.10 kU/L Pork IgE <0.10 kU/L Rice IgE <0.10 kU/L [place] IgE <0.10 kU/L Shrimp IgE <0.10 kU/L Soybean IgE <0.10 kU/L Tomato IgE <0.10 kU/L Tuna IgE <0.10 kU/L Wheat IgE <0.10 kU/L Feb 29, 2024 01:31 PM [facility] QUANTIFERON (TUC/LB) BLOOD Specimen T [...] Feb 29, 2024 01:30 PM Reporting Lab: [address] [address] Performing Lab: [facility] [address] [address] QFT-Quantiferon Negative Negative QFT-NIL control 0.0619 [IU]/mL QFT-TB1 antigen 0.0000 [IU]/mL QFT-TB2 antigen 0.0080 [IU]/mL QFT-Mitogen control 9.9381 [IU]/mL Feb 29, 2024 01:31 PM [facility] HEMOGLOBIN A1C BLOOD Specimen Type: B LOOD Comment: [id number] Values obtained from A1C measurements can vary. For typical A1C assays, a reported value of 7.0 could actually be between 6.72 and 7.28 if measured by a reference method. A reported value of 9.0 could actually be between 8.73 and 9.27. Ref: https://ngsp.org/CAPdata.asp Ordering Provider: HILARIO CABRAL Report Released Date/Time: Feb 29, 2024 01:30 PM Reporting Lab: [address] [address] Performing Lab: [address] [address] HEMOGLOBIN A1C 5.8 4.4-6.4 Feb 29, 2024 01:31 PM [facility] HEPATITIS C AB PANEL SERUM Specimen T ype: SERUM Comment: Since Total PSA value is considered truly negative, confirmatory Free PSA assay is not indicated. Ordering Provider: HILARIO CABRAL Report Released Date/Time: Feb 29, 2024 01:30 PM Reporting Lab: [address] [place] [address] Performing Lab: [address] [address] HEPATITIS C ANTIBODY NEGATIVE <Negative Feb 29, 2024 01:31 PM [facility] TSH W/REFLEX FT4 PLASMA Specimen Type: PLASMA Comment: eGFR CKD-EPI eGFR calculated using the 2020 DTE-GUK-fcpgkenewh equation; units of measure are mL/min/1.73m~2. eGFR [...] Feb 29, 2024 01:30 PM Reporting Lab: [address] [address] Performing Lab: [address] [address] TSH 1.246 u[IU]/mL 0.500-5.000 Feb 29, 2024 01:31 PM [facility] LIPID STUDY (MUST BE FASTING) PLASMA S pecimen Type: PLASMA Comment: eGFR CKD-EPI eGFR calculated using the 2020 ZRG-YEW-jyvrgevcwi equation; units of measure are mL/min/1.73m~2. eGFR [...] Feb 29, 2024 01:30 PM Reporting Lab: [address] [address] Performing Lab: [address] [address] CHOLESTEROL 186 mg/dL 145-200 TRIGLYCERIDE 68 mg/dL 47-150 HDL 49 mg/dL 40-60 LDL-ABBY 123 mg/dL 0-130 Feb 29, 2024 01:31 PM [facility] CBC & DIFF BLOOD Specimen Type: BLOOD No comment entered. Ordering Provider: HILARIO CABRAL Report Released Date/Time: Feb 29, 2024 01:30 PM Reporting Lab: [address] [address] Performing Lab: [address] [address] WBC 7.0 10*3/uL 3.5-10.6 RBC 4.40 10*6/uL [...] 10*3/uL 0.00-0.07 Feb 29, 2024 01:31 PM [facility] VITAMIN D (25-OH VITAMIN D) SCREEN PLASMA Specimen Type: PLASMA No comment entered. Ordering Provider: HILARIO CABRAL Report Released Date/Time: Feb 29, 2024 01:30 PM Reporting Lab: [address] [address] Performing Lab: [address] [address] VITAMIN D (25-OH VITAMIN D) SCREEN 24.2 ng/mL L 30.0-60.0 Feb 29, 2024 01:31 PM [facility] COMPREHENSIVE METABOLIC PANEL PLASMA S pecimen Type: PLASMA Comment: eGFR CKD-EPI eGFR calculated using the 2020 VEU-YYV-osuzlrvbhl equation; units of measure are mL/min/1.73m~2. eGFR [...] Feb 29, 2024 01:30 PM Reporting Lab: [address] [address] Performing Lab: [address] [address] BUN 15 mg/dL 7-20 GLUCOSE 98 mg/dL [...] L >90 Feb 29, 2024 01:31 PM [facility] PSA /Reflex Free PSA SERUM Specimen T ype: SERUM Comment: Since Total PSA value is considered truly negative, confirmatory Free PSA assay is not indicated. Ordering Provider: HILARIO CABRAL Report Released Date/Time: Feb 29, 2024 01:30 PM Reporting Lab: [facility] [address] [facility] [address] Performing Lab: [address] [address] PSAg 2.18 ng/mL 0.01-4.00 Social History: Smoking Status (Most current) and Tobacco Use (All prior to encounter date) This section includes the most current, and the historical, smoking and tobacco- related health factors from the [place] facility where the Encounter took place. Current Smoking Status This section includes the most current smoking, or tobacco-related health factor, from the [place] facility where the Encounter took place. Date/Time Current Smoking Status Comment Bautista ity Feb 29, 2024 01:30 PM VA-TOBACCO FORMER USER [facility] Tobacco Use History This section includes a history of the smoking, or tobacco-related health factors, that were collected on or before the date of the Encounter. The data comes from the [place] facility where the Encounter took place. Date/Time Smoking Status/Tobacco Use Comment F acility Feb 29, 2024 01:30 PM VA-TOBACCO QUIT 1 TO < 5 YRS [facility] Feb 29, 2024 01:30 PM VA-TOBACCO QUIT 15 YRS OR MORE [facility] Jan 03, 2023 11:30 AM VA-TOBACCO DOESNT USE WI 30 MIN WAKEUP [facility] Jan 03, 2023 11:30 AM VA-TOBACCO USE 30 YEARS OR MORE [facility] Jan 03, 2023 11:30 AM VA-TOBACCO USE ADVICE [facility] Jan 03, 2023 11:30 AM VA-TOBACCO USE STOCK PREPARATION OPERATOR NO [facility] Jan 03, 2023 11:30 AM VA-TOBACCO USE MED NO [facility] Jan 03, 2023 11:30 AM VA-TOBACCO USER SOME DAYS [facility] Jan 02, 2022 08:00 AM VA-TOBACCO USE 30 YEARS OR MORE [facility] Jan 02, 2022 08:00 AM VA-TOBACCO USE ADVICE [facility] Jan 02, 2022 08:00 AM VA-TOBACCO USE STOCK PREPARATION OPERATOR NO [facility] Jan 02, 2022 08:00 AM VA-TOBACCO USE MED NO [facility] Jan 02, 2022 08:00 AM VA-TOBACCO USE WI 30 MIN OF WAKEUP [facility] Jan 02, 2022 08:00 AM VA-TOBACCO USER EVERY DAY [facility] Feb 15, 2021 11:30 AM VA-TOBACCO USE > 1 5 LESS THAN 30 YEARS [facility] Feb 15, 2021 11:30 AM VA-TOBACCO USE ADVICE [facility] Feb 15, 2021 11:30 AM VA-TOBACCO USE STOCK PREPARATION OPERATOR NO [facility] Feb 15, 2021 11:30 AM VA-TOBACCO USE MED NO [facility] Feb 15, 2021 11:30 AM VA-TOBACCO USE WI 30 MIN OF WAKEUP [facility] Feb 15, 2021 11:30 AM VA-TOBACCO USER EVERY DAY [facility] Nov 13, 2018 08:15 AM VA-TOBACCO USE > 1 5 LESS THAN 30 YEARS [facility] Nov 13, 2018 08:15 AM VA-TOBACCO USE ADVICE [facility] Nov 13, 2018 08:15 AM VA-TOBACCO USE STOCK PREPARATION OPERATOR NO [facility] Nov 13, 2018 08:15 AM VA-TOBACCO USE MED NO [facility] Nov 13, 2018 08:15 AM VA-TOBACCO USE WI 30 MIN OF WAKEUP [facility] Nov 13, 2018 08:15 AM VA-TOBACCO USER EVERY DAY [facility] Aug 10, 2010 03:28 PM CURRENT TOBACCO USER [facility] Aug 28, 2007 09:40 AM CURRENT TOBACCO USER cigarettes 1 pack every 2 days [facility] Aug 28, 2007 09:40 AM TOBACCO QUESTIONNA ALTHEA COMPLETED [facility] Jul 16, 2006 11:25 AM CURRENT TOBACCO USER 8-12 cigs daily [facility] Advance Directives: All historical and current Section Date Range: From patient's date of to the date document was created. This section includes ALL of a patient's completed or amended [place] Advance and Rescinded Directives. The entries below indicate that a directive exists for the patient, but an actual copy is not included with this document. The data comes from all [place] facilities. Date Advance Directives Provider Source Jun 13, 2023 ADVANCE DIRECTIVE DISCUSSION VÍCTOR HAMPTON [facility] Jan 16, 2008 ADVANCE DIRECTIVE ROBERTA GARCIA [facility] Jan 16, 2008 ADVANCE DIRECTIVE RALPH DE DIOS [facility] Radiology Reports: +/- 30 days of [...] the Encounter. The data comes from all [place] treatment facilities. Date/Time Radiology Report Provider Source Mar 27, 2024 01:23 PM KNEE 4 OR MORE VIE WS (LEFT): ROSE MARY BURKS KATHY [id number] -1955 M Exm Date: MAR 27, 2024@13:23 Req Phys: HILARIO CABRAL Loc: ADMINISTRATIVE CONTACT (Req'g Img Loc: H-MAIN-X Service: [place] [address] (Case [id number] COMPLETE)KNEE 4 OR MORE VIEWS (LEFT) (RAD Detailed) CPT:28330 Reason for Study: djd Clinical History: 68 y.o male w/ lumbar and L knee pain, keep falling when walks Report Status: Verified Date Reported: MAR 27, 2024 Date Verified: MAR 27, 2024 Vice President Of Talent Management E-Sig: Report: EXAM: KNEE 4 OR MORE [...] space narrowing in the medial compartment with uiva-up-yerwemak joint space narrowing in the lateral compartment. Stable exam compared to 2019. [facility] Primary Diagnostic Code: Primary Interpreting Staff: HOUSTON MILLER, RADIOLOGIST Verified by foxing cutting machine operator for HOUSTON RIOSTHUY /[facility] Mar 27, 2024 01:23 PM KNEE 4 OR MORE VIE WS (RIGHT): ROSE MARY BURKS [id number] -1955 M Exm Date: MAR 27, 2024@13:23 Req Phys: MARIANNAFANDAVID Palomino Loc: ADMINISTRATIVE CONTACT (Req'g Img Loc: H-MAIN-X Service: [place] [address] (Case [id number] COMPLETE)KNEE 4 OR MORE VIEWS (RIGHT) (RAD Detailed) CPT:48480 Reason for Study: djd Clinical History: 68 y.o male w/ lumbar and L knee pain, keep falling when walks Report Status: Verified Date Reported: MAR 27, 2024 Date Verified: MAR 27, 2024 Vice President Of Talent Management E-Sig: Report: EXAM: KNEE 4 OR MORE [...] space narrowing in the medial compartment with stue-sm-yhutskhh joint space narrowing in the lateral compartment. Stable exam compared to 2019. Primary Diagnostic Code: Primary Interpreting Staff: HOUSTON MILLER, RADIOLOGIST Verified by foxing cutting machine operator for HOUSTONDAVID MILLER /[facility] Mar 27, 2024 01:22 PM HIP 2-3 VIEWS (LEF T): ROSE MARY BURKS [id number] -1955 M Exm Date: MAR 27, 2024@13:22 Req Phys: MARIANNAHILARIO Bob Pat Loc: [place] SW PACT FOUR SLIDE MACHINE OPERATOR 6 (Req'g Loc) Img Loc: H-MAIN-X Service: [place] [address] (Case [id number] COMPLETE)HIP 2-3 VIEWS (LEFT) (RAD Detailed) CPT:75534 Reason for Study: Pain and falls Clinical History: Pain and falls Report Status: Verified Date Reported: MAR 27, 2024 Date Verified: MAR 27, 2024 Vice President Of Talent Management E-Sig: Report: EXAM: HIP 2-3 VIEWS (LEFT) [...] of osteonecrosis of the left femoral head. [facility] Primary Diagnostic Code: Primary Interpreting Staff: HOUSTON MILLER, RADIOLOGIST Verified by foxing cutting machine operator for HOUSTON MILLER /HOUSTON ANGUIANO [facility] Mar 27, 2024 12:50 PM LDCT LUNG CANCER S CREENING: ROSE MARY BURKS KATHY [id number] -1955 M Exm Date: MAR 27, 2024@12:50 Req Phys: HILARIO CABRAL Pat Loc: [place] SW PACT FOUR SLIDE MACHINE OPERATOR 6 (Req'g Loc) Img Loc: [facility]-COMPUTED TOMOGRAPHY-X Service: [place] [address] (Case [id number] COMPLETE)LDCT LUNG CANCER SCREENING (CT Detailed) CPT:28102 Reason for Study: lung cancer screening Clinical History: Vet was on the lung cancer screening , last chest CT WAS 01/02/2023, HE MOVED TO [place], JUST MOVED BACK HERE NOW. Report Status: Verified Date Reported: MAR 28, 2024 Date Verified: MAR 28, 2024 Vice President Of Talent Management E-Sig: Report: Clinical Information: 68-year-old male presenting [...] r/o obstruction; Aggressive BP lowering; Referral to stock control clerk or preventive plant mechanic 1. Di Anguiano, Delroy MAURICE, Conrad Aguirre, [...] Computed Tomography / Society of Thoracic Radiology. [facility] Primary Diagnostic Code: LUNGRADS 2: BENIGN APPEARANCE OR BEHAVIOR Primary Interpreting Staff: ANDREW SAMS MD, RADIOLOGIST Verified by foxing cutting machine operator for ANDREW SAMS MD /ANDREW LIRIANO [facility] Encounter Notes: All associated encounter notes This section contains the clinical notes associated to the Encounter. Date/Time Encounter Note(s) Provider Source Mar 21, 2024 08:46 AM PRIMARY CARE TELEP [place] ENCOUNTER NOTE: LOCAL TITLE: PRIMARY CARE NURSING TELEPHONE NOTE STANDARD TITLE: PRIMARY CARE TELEPHONE ENCOUNTER NOTE DATE OF NOTE: MAR 21, 2024@08:46 ENTRY DATE: MAR 21, 2024@08:46:31 AUTHOR: CHRISTI BENAVIDEZ EXP COSIGNER: URGENCY: STATUS: COMPLETED Unsuccessful attempt at contact: Unable to reach patient. Attempted to contact pt regarding imaging. Left a direct contact number for team RN on his . Will send a secure message. Status: Attempt 1 Reason: IMAGING Outcome: HIPAA message on voice mail. /kallie/ CHRISTI BENAVIDEZ RN conveyor system operator Signed: 03/21/2024 08:47 CHRISTI BENAVIDEZ [facility]
--- OUTSIDE RECORDS SUMMARY | 2024-03-27 14:24 | XMS_ITS ---
Author Name [facility] [place] [facility] [place] Address [address] [place] [address] Care Team Providers [place] Demonstrator Name Role Phone AMANDEEP PETERS Primary Care [...] PART A May 04, 2019 PART A [id number] KIMMIE,ALVARO SHELTON PATIENT MEDICARE (WNR) MEDICARE (M) PART B May 04, 2019 PART B [id number] BURKS,AN CAT PATIENT MEDICARE (WNR) MEDICARE (M) PART A October 02, 2018 PART A [id number] BURKS,ALVARO ZHENGONY PATIENT MEDICARE (WNR) MEDICARE (M) PART B October 02, 2018 PART B [id number] KIMMIE,ALVARO SHELTON PATIENT Selected Encounter This section includes the information on record at [place] for the Encounter. Date/Time Encounter Type Encounter Description Reason Pro vider Source Mar 27, 2024 06:24 PM Outpatient Encounter ADMIN PAT ACTIVTIES (MASNONCT) IHE Encounter Template Text not used by [place] Plan of Treatment: Future Appointments (+ 6 months) and Future Tests (+/- 45 days) The Plan of Treatment section includes [facility] care [facility] This section includes future appointments and future orders which are active, pending or scheduled. Future Appointments This section includes appointments that were scheduled to occur 6 months from the date of the Encounter, up to a maximum of 20 appointments. The data comes from all [place] treatment facilities. Appointment Date/Time Appointment Type Appointme nt Facility Name Apr 02, 2024 01:45 PM [facility] Apr 02, 2024 02:20 PM [facility] Apr 02, 2024 03:45 PM AMBULATORY - [facility]HAB MEDICIN [facility] Apr 15, 2024 08:30 AM AMBULATORY - NONE [facility] May 22, 2024 07:30 AM AMBULATORY - NONE [facility] May 22, 2024 10:30 AM AMBULATORY - NONE [facility] Jun 18, 2024 01:00 PM [facility] Jul 05, 2024 06:18 AM [facility] Jul 31, 2024 01:30 PM [facility] Aug 06, 2024 04:15 PM AMBULATORY - REHAB MEDICIN [facility] Aug 08, 2024 01:00 PM AMBULATORY - REHAB MEDICIN E [facility] Aug 12, 2024 10:45 AM AMBULATORY - REHAB MEDICIN [facility] Aug 19, 2024 10:15 AM AMBULATORY - REHAB MEDICIN [facility] Aug 21, 2024 01:30 PM AMBULATORY - REHAB MEDICIN [facility] Aug 26, 2024 10:45 AM AMBULATORY - REHAB MEDICIN E [facility] Aug 28, 2024 09:30 AM AMBULATORY - REHAB MEDICIN E [facility] Aug 29, 2024 10:15 AM AMBULATORY - REHAB MEDICIN E [facility] Sep 02, 2024 01:00 PM [facility] Sep 11, 2024 02:45 PM AMBULATORY - REHAB MEDICIN E [facility] Sep 25, 2024 10:45 AM AMBULATORY - REHAB MEDICIN E [facility] Lab Results: +/- 30 days of [...] Type Comment Feb 29, 2024 02:30 PM [facility] URINALYSIS URINE Specimen Type: URINE Comment: Microscopic Not Indicated Ordering Provider: HILARIO CABRAL Report Released Date/Time: Feb 29, 2024 01:30 PM Reporting Lab: [address] [address] Performing Lab: [address] [address] URINE COLOR Yellow Yellow URINE SPECIFIC GRAVITY 1.022 1.001-1.0 29 URINE BILIRUBIN Negative mg/dL Negative URINE KETONES Negative mg/dL Negative-Tr rachel UR GLUCOSE Normal mg/dL Normal UR PROTEIN Negative mg/dL URINE PH 5.5 5.0-8.0 CLARITY Clear Clear URINE BLOOD 0.03 mg/dL NITRITE, URINE Negative Negative LEUKOCYTE ESTERASE, URINE Negative URINE UROBILINOGEN Normal mg/dL Normal Feb 29, 2024 01:31 PM [facility] ALLERGEN FOOD PANEL SERUM Specimen Ty pe: SERUM Comment: TEST PERFORMED AT: [facility] [address] [address] Director: Joshua Medina MD, PhD, STEVE TEST PERFORMED AT: [facility] [address] [address] Director: Joshua Medina MD, PhD, STEVE TEST PERFORMED AT: [facility] [address] Director: Joshua Medina MD, PhD, STEVE TEST PERFORMED AT: [facility] [address] Director: Joshua Medina MD, PhD, STEVE TEST PERFORMED AT: [facility] [address] [address] Director: Joshua Medina MD, PhD, STEVE TEST PERFORMED AT: [facility] [address] [address] Director: Joshua Medina MD, PhD, STEVE TEST PERFORMED AT: [address] [address] Director: Joshua Medina MD, PhD, STEVE TEST PERFORMED AT: [address] [address] Director: Joshua Medina MD, PhD, STEVE TEST PERFORMED AT: [address] [address] Director: Joshua Medina MD, PhD, STEVE TEST PERFORMED AT: [address] [address] Director: Joshua Medina MD, PhD, STEVE TEST PERFORMED AT: [address] [address] Director: Joshua Medina MD, PhD, STEVE TEST PERFORMED AT: [address] [address] Director: Joshua Medina MD, PhD, STEVE TEST PERFORMED AT: [address] [address] Director: Joshua Medina MD, PhD, STEVE TEST PERFORMED AT: [address] [address] Director: Joshua Medina MD, PhD, STEVE TEST PERFORMED AT: [facility] [address] [address] Director: Joshua Medina MD, PhD, STEVE TEST PERFORMED AT: [address] [address] Director: Joshua Medina MD, PhD, STEVE TEST PERFORMED AT: [facility] [address] [place] [address] Director: Joshua Medina MD, PhD, STEVE TEST PERFORMED AT: [facility] [address] Director: Joshua Medina MD, PhD, STEVE TEST PERFORMED AT: [address] Director: Joshua Medina MD, PhD, STEVE TEST PERFORMED AT: [place] [address] Director: Joshua Medina MD, PhD, STEVE TEST PERFORMED AT: [facility] [address] Director: Joshua Medina MD, PhD, STEVE TEST PERFORMED AT: [address] Director: Joshua Medina MD, PhD, STEVE TEST PERFORMED AT: [facility] [address] Director: Joshua Medina MD, PhD, STEVE TEST PERFORMED AT: [place] [address] Director: Joshua Medina MD, PhD, STEVE TEST PERFORMED AT: [place] [address] Director: Joshua Medina MD, PhD, STEVE INTERPRETATION [...] intended for specialist use. TEST PERFORMED AT: [facility] [address] [address] Director: Joshua Medina MD, PhD, STEVE TEST PERFORMED AT: TEST PERFORMED AT: [facility] [address] [address] [place] [address] Director: Joshua Medina MD, PhD, STEVE Director: Joshua Medina MD, PhD, STEVE Ordering Provider: HILARIO CABRAL Report Released Date/Time: Feb 29, 2024 01:30 PM Reporting Lab: [address] [address] Performing Lab: [facility] CA IGE TOTAL SERUM 43 kU/L 114 OR LESS Barley IgE <0.10 kU/L Beef IgE <0.10 kU/L Pepper C. annuum IgE <0.10 kU/L Cabbage IgE <0.10 kU/L Carrot IgE <0.10 kU/L Chicken IgE <0.10 kU/L Codfish IgE <0.10 kU/L [place] IgE <0.10 kU/L Crab IgE <0.10 kU/L Egg White IgE <0.10 kU/L Grape IgE <0.10 kU/L Lettuce IgE <0.10 kU/L Milk (Cow) IgE <0.10 kU/L Brogan Recinos IgE <0.10 kU/L Oat IgE <0.10 kU/L [place] IgE <0.10 kU/L Peanut IgE <0.10 kU/L Potato IgE <0.10 kU/L Pork IgE <0.10 kU/L Rice IgE <0.10 kU/L [place] IgE <0.10 kU/L Shrimp IgE <0.10 kU/L Soybean IgE <0.10 kU/L Tomato IgE <0.10 kU/L Tuna IgE <0.10 kU/L Wheat IgE <0.10 kU/L Feb 29, 2024 01:31 PM [facility] QUANTIFERON (TUC/LB) BLOOD Specimen T [...] Feb 29, 2024 01:30 PM Reporting Lab: [address] [address] Performing Lab: [facility] [address] [address] QFT-Quantiferon Negative Negative QFT-NIL control 0.0619 [IU]/mL QFT-TB1 antigen 0.0000 [IU]/mL QFT-TB2 antigen 0.0080 [IU]/mL QFT-Mitogen control 9.9381 [IU]/mL Feb 29, 2024 01:31 PM [facility] HEMOGLOBIN A1C BLOOD Specimen Type: B LOOD Comment: [id number] Values obtained from A1C measurements can vary. For typical A1C assays, a reported value of 7.0 could actually be between 6.72 and 7.28 if measured by a reference method. A reported value of 9.0 could actually be between 8.73 and 9.27. Ref: https://ngsp.org/CAPdata.asp Ordering Provider: HILARIO CABRAL Report Released Date/Time: Feb 29, 2024 01:30 PM Reporting Lab: [address] [place] [address] Performing Lab: [address] [address] HEMOGLOBIN A1C 5.8 4.4-6.4 Feb 29, 2024 01:31 PM [facility] HEPATITIS C AB PANEL SERUM Specimen T ype: SERUM Comment: Since Total PSA value is considered truly negative, confirmatory Free PSA assay is not indicated. Ordering Provider: HILARIO CABRAL Report Released Date/Time: Feb 29, 2024 01:30 PM Reporting Lab: [address] [place] [address] Performing Lab: [address] [address] HEPATITIS C ANTIBODY NEGATIVE <Negative Feb 29, 2024 01:31 PM [facility] LIPID STUDY (MUST BE FASTING) PLASMA S pecimen Type: PLASMA Comment: eGFR CKD-EPI eGFR calculated using the 2020 QMB-RNK-oodtskfbie equation; units of measure are mL/min/1.73m~2. eGFR [...] Feb 29, 2024 01:30 PM Reporting Lab: [address] [address] Performing Lab: [address] [address] CHOLESTEROL 186 mg/dL 145-200 TRIGLYCERIDE 68 mg/dL 47-150 HDL 49 mg/dL 40-60 LDL-ABBY 123 mg/dL 0-130 Feb 29, 2024 01:31 PM [facility] CBC & DIFF BLOOD Specimen Type: BLOOD No comment entered. Ordering Provider: HILARIO CABRAL Report Released Date/Time: Feb 29, 2024 01:30 PM Reporting Lab: [address] [address] Performing Lab: [address] [address] WBC 7.0 10*3/uL 3.5-10.6 RBC 4.40 10*6/uL [...] 10*3/uL 0.00-0.07 Feb 29, 2024 01:31 PM [facility] COMPREHENSIVE METABOLIC PANEL PLASMA S pecimen Type: PLASMA Comment: eGFR CKD-EPI eGFR calculated using the 2020 TUE-PQA-vvnlaoubzy equation; units of measure are mL/min/1.73m~2. eGFR [...] Feb 29, 2024 01:30 PM Reporting Lab: [facility] [address] [facility] [address] Performing Lab: [address] [address] BUN 15 mg/dL 7-20 GLUCOSE 98 mg/dL [...] L >90 Feb 29, 2024 01:31 PM [facility] TSH W/REFLEX FT4 PLASMA Specimen Type: PLASMA Comment: eGFR CKD-EPI eGFR calculated using the 2020 UGX-KCS-wxwsuaznye equation; units of measure are mL/min/1.73m~2. eGFR [...] Feb 29, 2024 01:30 PM Reporting Lab: [facility] [address] [facility] [address] Performing Lab: [facility] [address] [facility] [address] TSH 1.246 u[IU]/mL 0.500-5.000 Feb 29, 2024 01:31 PM [facility] VITAMIN D (25-OH VITAMIN D) SCREEN PLASMA Specimen Type: PLASMA No comment entered. Ordering Provider: HILARIO CABRAL Report Released Date/Time: Feb 29, 2024 01:30 PM Reporting Lab: [address] [address] Performing Lab: [address] [address] VITAMIN D (25-OH VITAMIN D) SCREEN 24.2 ng/mL L 30.0-60.0 Feb 29, 2024 01:31 PM [facility] PSA /Reflex Free PSA SERUM Specimen T ype: SERUM Comment: Since Total PSA value is considered truly negative, confirmatory Free PSA assay is not indicated. Ordering Provider: HILARIO CABRAL Report Released Date/Time: Feb 29, 2024 01:30 PM Reporting Lab: [address] [address] Performing Lab: [address] [address] PSAg 2.18 ng/mL 0.01-4.00 Social History: Smoking Status (Most current) and Tobacco Use (All prior to encounter date) This section includes the most current, and the historical, smoking and tobacco- related health factors from the [place] facility where the Encounter took place. Current Smoking Status This section includes the most current smoking, or tobacco-related health factor, from the [place] facility where the Encounter took place. Date/Time Current Smoking Status Comment Bautista ity Jan 04, 2017 03:31 PM CURRENT TOBACCO USER [facility] Tobacco Use History This section includes a history of the smoking, or tobacco-related health factors, that were collected on or before the date of the Encounter. The data comes from the [place] facility where the Encounter took place. Date/Time Smoking Status/Tobacco Use Comment F acility Jan 04, 2017 03:31 PM TOB INFO ON NON-VA STOP SMOKING CLINIC [facility] Jan 04, 2017 03:31 PM TOBACCO OFFERED PT MEDS (PROVIDE R) [facility] May 31, 2011 09:24 AM QUIT TOBACCO IN THE LAST 12 OCTAVIO [facility] Advance Directives: All historical and current Section Date Range: From patient's date of to the date document was created. This section includes ALL of a patient's completed or amended [place] Advance and Rescinded Directives. The entries below indicate that a directive exists for the patient, but an actual copy is not included with this document. The data comes from all [place] facilities. Date Advance Directives Provider Source Jun 13, 2023 ADVANCE DIRECTIVE DISCUSSION VÍCTOR HAMPTON [facility] Jan 16, 2008 ADVANCE DIRECTIVE ROBERTA GARCIA [facility] Jan 16, 2008 [facility] Radiology Reports: +/- 30 days [...] the Encounter. The data comes from all [place] treatment facilities. Date/Time Radiology Report Provider Source Mar 27, 2024 01:23 PM KNEE 4 OR MORE VIE WS (LEFT): BURKSROSE MARY KATHY [id number] -1955 M Ex Date: MAR 27, 2024@13:23 Req Phys: HILARIO CABRAL Loc: ADMINISTRATIVE CONTACT (Req'g Img Loc: H-MAIN-X Service: [place] [address] (Case [id number] COMPLETE)KNEE 4 OR MORE VIEWS (LEFT) (RAD Detailed) CPT:34773 Reason for Study: djd Clinical History: 68 y.o male w/ lumbar and L knee pain, keep falling when walks Report Status: Verified Date Reported: MAR 27, 2024 Date Verified: MAR 27, 2024 Stamping Press Operator E-Sig: Report: EXAM: KNEE 4 OR [...] space narrowing in the medial compartment with jloz-bp-kyddkqia joint space narrowing in the lateral compartment. Stable exam compared to 2019. Primary Diagnostic Code: Primary Interpreting Staff: HOUSTON MILLER, RADIOLOGIST Verified by flask pusher for HOUSTON MILLER /MIREYA MILLERFORMERLY [facility] Mar 27, 2024 01:23 PM KNEE 4 OR MORE VIE WS (RIGHT): ROSE MARY BURKS [id number] -1955 Ex Date: MAR 27, 2024@13:23 Req Phys: MARIANNAFANDAVID Pat Loc: ADMINISTRATIVE CONTACT (Req'g Img Loc: H-MAIN-X Service: [place] [address] (Case [id number] COMPLETE)KNEE 4 OR MORE VIEWS (RIGHT) (RAD Detailed) CPT:99966 Reason for Study: djd Clinical History: 68 y.o male w/ lumbar and L knee pain, keep falling when walks Report Status: Verified Date Reported: MAR 27, 2024 Date Verified: MAR 27, 2024 Stamping Press Operator E-Sig: Report: EXAM: KNEE 4 OR [...] space narrowing in the medial compartment with cekx-bj-ealftnck joint space narrowing in the lateral compartment. Stable exam compared to 2019. Primary Diagnostic Code: Primary Interpreting Staff: HOUSTON MILLER, RADIOLOGIST Verified by flask pusher for HOUSOTN MILLER /MIREYA MILLERFORMERLY [facility] Mar 27, 2024 01:22 PM HIP 2-3 VIEWS (LEF T): ROSE MARY BURKS [id number] -1955 M Exm Date: MAR 27, 2024@13:22 Req Phys: HILARIO CABRAL Pat Loc: [place] SW PACT TYPEWRITER RIBBON WINDER 6 (Req'g Loc) Img Loc: H-MAIN-X Service: [place] [address] (Case [id number] COMPLETE)HIP 2-3 VIEWS (LEFT) (RAD Detailed) CPT:77183 Reason for Study: Pain and falls Clinical History: Pain and falls Report Status: Verified Date Reported: MAR 27, 2024 Date Verified: MAR 27, 2024 Stamping Press Operator E-Sig: Report: EXAM: HIP 2-3 VIEWS [...] Interpreting Staff: HOUSTON MILLER, RADIOLOGIST Verified by flask pusher for HOUSTON MILLER /HOUSTON ANGUIANO [facility] Mar 27, 2024 12:50 PM LDCT LUNG CANCER S CREENING: ROSE MARY BURKS [id number] -1955 M Exm Date: MAR 27, 2024@12:50 Req Phys: HILARIO CABRAL Pat Loc: [place] SW PACT TYPEWRITER RIBBON WINDER 6 (Req'g Loc) Img Loc: PHX-COMPUTED TOMOGRAPHY-X Service: [place] [address] (Case [id number] COMPLETE)LDCT LUNG CANCER SCREENING (CT Detailed) CPT:79686 Reason for Study: lung cancer screening Clinical History: Vet was on the lung cancer screening , last chest CT WAS 01/02/2023, HE MOVED TO [place], JUST MOVED BACK HERE NOW. Report Status: Verified Date Reported: MAR 28, 2024 Date Verified: MAR 28, 2024 Stamping Press Operator E-Sig: Report: Clinical Information: 68-year-old male [...] r/o obstruction; Aggressive BP lowering; Referral to flat polisher or preventive hyperbaric technologist 1. Delroy Gary, Conrad Aguirre, et al. Ordinal scoring of [...] Staff: ANDREW SAMS MD, RADIOLOGIST Verified by flask pusher for ANDREW SAMS MD /ANDREW LIRIANO [facility] Encounter Notes: All associated encounter notes This section contains the clinical notes associated to the Encounter. Date/Time Encounter Note(s) Provider Source Mar 27, 2024 06:24 PM TELEPHONE ENCOUNTE R NOTE: LOCAL TITLE: TELEPHONE CONTACT STANDARD TITLE: TELEPHONE ENCOUNTER NOTE DATE OF NOTE: MAR 27, 2024@18:24 ENTRY DATE: MAR 27, 2024@18:24:20 AUTHOR: HILARIO CABRAL EXP COSIGNER: URGENCY: STATUS: COMPLETED [address] [place], [place] [address] Patient RN, please let vt know, bothe knees and L hip show arthritis, please have him work w/ PT-self scheduling. thx /kallie/ HILARIO CABRAL DNP, ANP-C NURSE PRACTITIONER Signed: 03/27/2024 18:26 Receipt Acknowledged By: 03/28/2024 14:14 /kallie/ ROMÁN FAJARDO RN STAFF NURSE for HILARIO DEL CASTILLO [facility]
--- OUTSIDE RECORDS SUMMARY | 2024-03-28 10:18 | XMS_ITS | Encounter Summary ---
Author Name [facility] [place] Address [address] [place] [address] Care Team Providers Care Diamond Sizer And Sorter Name Role Phone AMANDEEP PETERS Primary Care Provider Unavailabl e SAMMI ERICKSON Unavailable ASUNCION Tran Primary Care Provider Unavailabl e Insurance [...] PART A May 04, 2019 PART A [id number] BURKS,AN CAT PATIENT MEDICARE (WNR) MEDICARE (M) PART B May 04, 2019 PART B [id number] BURKS,AN CAT PATIENT MEDICARE (WNR) MEDICARE (M) PART A October 02, 2018 PART A [id number] [id number] BURKS,AN CAT PATIENT MEDICARE (WNR) MEDICARE (M) PART B October 02, 2018 PART B [id number] KIMMIE,ALVARO CAT PATIENT Selected Encounter This section includes the information on record at [place] for the Encounter. Date/Time Encounter Type Encounter Description Reason Pro vider Source Mar 28, 2024 02:18 PM Outpatient Encounter ADMITTING/SCREENING IHE Encounter Template Text not used by [facility] Plan of Treatment: Future Appointments (+ 6 months) and Future Tests (+/- 45 days) The Plan of Treatment section includes future care activities for the [facility] [place] [facility] This section includes future appointments and future orders which are active, pending or scheduled. Future Appointments This section includes appointments that were scheduled to occur 6 months from the date of the Encounter, up to a maximum of 20 appointments. The data comes from all [place] treatment facilities. Appointment Date/Time Appointment Type Appointme nt Facility Name Apr 02, 2024 01:45 PM [facility]UL[facility]ORY - [facility] Apr 02, 2024 02:20 PM [facility] Apr 02, 2024 03:45 PM AMBULATORY - REHAB [facility]ICIN [facility] Apr 15, 2024 08:30 AM AMBULATORY - NONE [facility] May 22, 2024 07:30 AM AMBULATORY - NONE [facility] May 22, 2024 10:30 AM [facility]ORY - NONE [place] [facility] Jun 18, 2024 01:00 PM [facility] [place] [facility] Jul 05, 2024 06:18 AM [facility] [place] [facility] Jul 31, 2024 01:30 PM [facility] [place] [facility] Aug 06, 2024 04:15 PM AMBULATORY - RE[facility] Aug 08, 2024 01:00 PM AMBULATORY - REHAB MEDICIN [facility] Aug 12, 2024 10:45 AM AMBULATORY - [facility] Aug 19, 2024 10:15 AM AMBULATORY - REHAB [facility] Aug 21, 2024 01:30 PM AMBULATORY - REHAB [facility] Aug 26, 2024 10:45 AM AMBULATORY - [facility]AB [facility] Aug 28, 2024 09:30 AM AMBULATORY - REHAB [facility] Aug 29, 2024 10:15 AM AMBULATORY - REHAB [facility]IN [facility] Sep 02, 2024 01:00 PM [facility] [place] [facility] Sep 11, 2024 02:45 PM AMBULATORY - RE[facility]AB [facility]IN [facility] Sep 25, 2024 10:45 AM AMBULATORY - [facility] Lab Results: +/- 30 days of [...] Type Comment Feb 29, 2024 02:30 PM [facility] URINALYSIS URINE Specimen Type: URINE Comment: Microscopic Not Indicated Ordering Provider: ASUNCION CABRAL Report Released Date/Time: Feb 29, 2024 01:30 PM Reporting Lab: [address] [address] Performing Lab: [address] [address] URINE COLOR Yellow Yellow URINE SPECIFIC GRAVITY 1.022 1.001-1.0 29 URINE BILIRUBIN Negative mg/dL Negative URINE KETONES Negative mg/dL Negative-Tr rachel UR GLUCOSE Normal mg/dL Normal UR PROTEIN Negative mg/dL URINE PH 5.5 5.0-8.0 CLARITY Clear Clear URINE BLOOD 0.03 mg/dL NITRITE, URINE Negative Negative LEUKOCYTE ESTERASE, URINE Negative URINE UROBILINOGEN Normal mg/dL Normal Feb 29, 2024 01:31 PM [facility] ALLERGEN FOOD PANEL SERUM Specimen Ty pe: SERUM Comment: TEST PERFORMED AT: [facility] [address] [address] Director: Joshua Medina MD, PhD, STEVE TEST PERFORMED AT: [facility] [address] Director: Joshua Medina MD, PhD, STEVE TEST PERFORMED AT: [facility] [address] Director: Joshua Medina MD, PhD, STEVE TEST PERFORMED AT: [facility] [address] Director: Joshua Medina MD, PhD, STEVE TEST PERFORMED AT: [facility] [address] [address] Director: Joshua Medina MD, PhD, STEVE TEST PERFORMED AT: [facility] [employer] [address] [address] Director: Joshua Medina MD, PhD, STEVE TEST PERFORMED AT: [address] [address] Director: Joshua Medina MD, PhD, STEVE TEST PERFORMED AT: [address] [address] Director: Joshua Medina MD, PhD, STEVE TEST PERFORMED AT: [address] [address] Director: Joshua Medina MD, PhD, STEVE TEST PERFORMED AT: [address] [address] Director: Joshua Medina MD, PhD, STEVE TEST PERFORMED AT: [address] [address] Director: Joshua Medina MD, PhD, STEVE TEST PERFORMED AT: [address] [address] Director: Joshua Medina MD, PhD, STEVE TEST PERFORMED AT: [address] [address] Director: Joshua Medina MD, PhD, STEVE TEST PERFORMED AT: [address] [address] Director: Joshua Medina MD, PhD, STEVE TEST PERFORMED AT: [address] [address] Director: Joshua Medina MD, PhD, STEVE TEST PERFORMED AT: [address] [address] Director: Joshua Medina MD, PhD, STEVE TEST PERFORMED AT: [address] [address] Director: Joshua Medina MD, PhD, STEVE TEST PERFORMED AT: [facility] [place] [address] Director: Joshua Medina MD, PhD, STEVE TEST PERFORMED AT: [place] [address] Director: Joshua Medina MD, PhD, STEVE TEST PERFORMED AT: [facility] [place] [address] Director: Joshua Medina MD, PhD, STEVE TEST PERFORMED AT: [facility] [place] [address] Director: Joshua Medina MD, PhD, STEVE TEST PERFORMED AT: [facility] [place] [address] Director: Joshua Medina MD, PhD, STEVE TEST PERFORMED AT: [facility] [place] [address] Director: Joshua Medina MD, PhD, STEVE TEST PERFORMED AT: [facility] [place] [address] Director: Joshua Medina MD, PhD, STEVE TEST PERFORMED AT: [facility] [place] [address] Director: Joshua Medina MD, PhD, STEVE INTERPRETATION [...] intended for specialist use. TEST PERFORMED AT: [facility] [address] [address] Director: Joshua Medina MD, PhD, STEVE TEST PERFORMED AT: TEST PERFORMED AT: [facility] [address] [address] [place] [address] Director: Joshua Medina MD, PhD, STEVE Director: Joshua Medina MD, PhD, STEVE Ordering Provider: ASUNCION CABRAL Report Released Date/Time: Feb 29, 2024 01:30 PM Reporting Lab: [address] [address] Performing Lab: [facility] CA IGE TOTAL SERUM 43 kU/L 114 OR LESS Barley IgE <0.10 kU/L Beef IgE <0.10 kU/L Pepper C. annuum IgE <0.10 kU/L Cabbage IgE <0.10 kU/L Carrot IgE <0.10 kU/L Chicken IgE <0.10 kU/L Codfish IgE <0.10 kU/L [place] IgE <0.10 kU/L Crab IgE <0.10 kU/L Egg White IgE <0.10 kU/L Grape IgE <0.10 kU/L Lettuce IgE <0.10 kU/L Milk (Cow) IgE <0.10 kU/L Merom Recinos IgE <0.10 kU/L Oat IgE <0.10 kU/L [place] IgE <0.10 kU/L Peanut IgE <0.10 kU/L Potato IgE <0.10 kU/L Pork IgE <0.10 kU/L Rice IgE <0.10 kU/L [place] IgE <0.10 kU/L Shrimp IgE <0.10 kU/L Soybean IgE <0.10 kU/L Tomato IgE <0.10 kU/L Tuna IgE <0.10 kU/L Wheat IgE <0.10 kU/L Feb 29, 2024 01:31 PM [facility] QUANTIFERON (TUC/LB) BLOOD Specimen T ype: BLOOD Comment: A Negative result does not preclude the possibility of M. tuberculosis infection or tuberculosis disease: false-negative results can be due to the stage of infection (e.g., specimen obtained prior to the development of cellular immune response or other immunological variables). Ordering Provider: ASUNCION CABRAL Report Released Date/Time: Feb 29, 2024 01:30 PM Reporting Lab: [address] [place] [address] Performing Lab: [facility] [address] [address] QFT-Quantiferon Negative Negative QFT-NIL control 0.0619 [IU]/mL QFT-TB1 antigen 0.0000 [IU]/mL QFT-TB2 antigen 0.0080 [IU]/mL QFT-Mitogen control 9.9381 [IU]/mL Feb 29, 2024 01:31 PM [facility] HEMOGLOBIN A1C BLOOD Specimen Type: B LOOD Comment: [id number] Values obtained from A1C measurements can vary. For typical A1C assays, a reported value of 7.0 could actually be between 6.72 and 7.28 if measured by a reference method. A reported value of 9.0 could actually be between 8.73 and 9.27. Ref: https://ngsp.org/CAPdata.asp Ordering Provider: ASUNCION CABRAL Report Released Date/Time: Feb 29, 2024 01:30 PM Reporting Lab: [address] [place] [address] Performing Lab: [address] [place] [address] HEMOGLOBIN A1C 5.8 4.4-6.4 Feb 29, 2024 01:31 PM [facility] HEPATITIS C AB PANEL SERUM Specimen T ype: SERUM Comment: Since Total PSA value is considered truly negative, confirmatory Free PSA assay is not indicated. Ordering Provider: ASUNCION CABRAL Report Released Date/Time: Feb 29, 2024 01:30 PM Reporting Lab: [address] [place] [address] Performing Lab: [address] [place] [address] HEPATITIS C ANTIBODY NEGATIVE <Negative Feb 29, 2024 01:31 PM [facility] CBC & DIFF BLOOD Specimen Type: BLOOD No comment entered. Ordering Provider: ASUNCION CABRAL Report Released Date/Time: Feb 29, 2024 01:30 PM Reporting Lab: [address] [address] Performing Lab: [address] [address] WBC 7.0 10*3/uL 3.5-10.6 RBC 4.40 10*6/uL [...] 10*3/uL 0.00-0.07 Feb 29, 2024 01:31 PM [facility] VITAMIN D (25-OH VITAMIN D) SCREEN PLASMA Specimen Type: PLASMA No comment entered. Ordering Provider: ASUNCION CABRAL Report Released Date/Time: Feb 29, 2024 01:30 PM Reporting Lab: [address] [address] Performing Lab: [address] [address] VITAMIN D (25-OH VITAMIN D) SCREEN 24.2 ng/mL L 30.0-60.0 Feb 29, 2024 01:31 PM [facility] TSH W/REFLEX FT4 PLASMA Specimen Type: PLASMA Comment: eGFR CKD-EPI eGFR calculated using the 2020 MPC-DNS-tvnoqxcvzt equation; units of measure are mL/min/1.73m~2. eGFR [...] Stage G5 eGFR <15 mL/min/1.73m~2. Ordering Provider: ASUNCION CABRAL Report Released Date/Time: Feb 29, 2024 01:30 PM Reporting Lab: [address] [address] Performing Lab: [address] [address] TSH 1.246 u[IU]/mL 0.500-5.000 Feb 29, 2024 01:31 PM [facility] PSA /Reflex Free PSA SERUM Specimen T ype: SERUM Comment: Since Total PSA value is considered truly negative, confirmatory Free PSA assay is not indicated. Ordering Provider: ASUNCION CABRAL Report Released Date/Time: Feb 29, 2024 01:30 PM Reporting Lab: [address] [place] [address] Performing Lab: [address] [place] [address] PSAg 2.18 ng/mL 0.01-4.00 Feb 29, 2024 01:31 PM [facility] LIPID STUDY (MUST BE FASTING) PLASMA S pecimen Type: PLASMA Comment: eGFR CKD-EPI eGFR calculated using the 2020 KBW-PAL-kofqjiucrq equation; units of measure are mL/min/1.73m~2. eGFR [...] Stage G5 eGFR <15 mL/min/1.73m~2. Ordering Provider: ASUNCION CABRAL Report Released Date/Time: Feb 29, 2024 01:30 PM Reporting Lab: [address] [address] Performing Lab: [address] [address] CHOLESTEROL 186 mg/dL 145-200 TRIGLYCERIDE 68 mg/dL 47-150 HDL 49 mg/dL 40-60 LDL-ABBY 123 mg/dL 0-130 Feb 29, 2024 01:31 PM [facility] COMPREHENSIVE METABOLIC PANEL PLASMA S pecimen Type: PLASMA Comment: eGFR CKD-EPI eGFR calculated using the 2020 PGG-WUL-pmcfufnypq equation; units of measure are mL/min/1.73m~2. eGFR [...] Stage G5 eGFR <15 mL/min/1.73m~2. Ordering Provider: ASUNCION CABRAL Report Released Date/Time: Feb 29, 2024 01:30 PM Reporting Lab: [address] [address] Performing Lab: [address] [address] BUN 15 mg/dL 7-20 GLUCOSE 98 mg/dL [...] and tobacco- related health factors from the [place] facility where the Encounter took place. Current Smoking Status This section includes the most current smoking, or tobacco-related health factor, from the [place] facility where the Encounter took place. Date/Time Current Smoking Status Comment Bautista calvillo Jan 04, 2017 03:31 PM CURRENT TOBACCO USER [facility] Tobacco Use History This section includes a history of the smoking, or tobacco-related health factors, that were collected on or before the date of the Encounter. The data comes from the [place] facility where the Encounter took place. Date/Time Smoking Status/Tobacco Use Comment F acility Jan 04, 2017 03:31 PM TOB INFO ON NON-VA STOP SMOKING CLINIC [facility] Jan 04, 2017 03:31 PM TOBACCO OFFERED PT MEDS (PROVIDE R) [facility] May 31, 2011 09:24 AM QUIT TOBACCO IN THE LAST 12 [facility] Advance Directives: All historical and current Section Date Range: From patient's date of to the date document was created. This section includes ALL of a patient's completed or amended [place] Advance and Rescinded Directives. The entries below indicate that a directive exists for the patient, but an actual copy is not included with this document. The data comes from all [place] facilities. Date Advance Directives Provider Source Jun 13, 2023 ADVANCE DIRECTIVE DISCUSSION VÍCTOR HAMPTON [facility] Jan 16, 2008 ADVANCE DIRECTIVE ROBERTA GARCIA [facility] Jan 16, 2008 ADVANCE DIRECTIVE RALPH DE DIOS [facility] Radiology Reports: +/- 30 days of [...] the Encounter. The data comes from all [place] treatment facilities. Date/Time Radiology Report Provider Source Mar 27, 2024 01:23 PM KNEE 4 OR MORE VIE WS (RIGHT): ROSE MARY BURKS [id number] -1955 M Exm Date: MAR 27, 2024@13:23 Req Phys: ASUNCION CABRAL Loc: ADMINISTRATIVE CONTACT (Req'g Img Loc: H-MAIN-X Service: [place] [address] (Case [id number] COMPLETE)KNEE 4 OR MORE VIEWS (RIGHT) (RAD Detailed) CPT:65929 Reason for Study: djd Clinical History: 68 y.o male w/ lumbar and L knee pain, keep falling when walks Report Status: Verified Date Reported: MAR 27, 2024 Date Verified: MAR 27, 2024 Superintendent Construction E-Sig: Report: EXAM: KNEE 4 OR MORE [...] space narrowing in the medial compartment with gwdd-wx-zfijeuhm joint space narrowing in the lateral compartment. Stable exam compared to 2019. [facility] Primary Diagnostic Code: Primary Interpreting Staff: HOUSTON MILLER, RADIOLOGIST Verified by tractor trailer operator for HOUSTONDAVID MILLER /[facility] Mar 27, 2024 01:23 PM KNEE 4 OR MORE VIE WS (LEFT): ROSE MARY BURKS [id number] -1955 M Exm Date: MAR 27, 2024@13:23 Req Phys: MARIANNAFANDAVID Palomino Loc: ADMINISTRATIVE CONTACT (Req'g Img Loc: H-MAIN-X Service: [place] [address] (Case [id number] COMPLETE)KNEE 4 OR MORE VIEWS (LEFT) (RAD Detailed) CPT:80789 Reason for Study: djd Clinical History: 68 y.o male w/ lumbar and L knee pain, keep falling when walks Report Status: Verified Date Reported: MAR 27, 2024 Date Verified: MAR 27, 2024 Superintendent Construction E-Sig: Report: EXAM: KNEE 4 OR MORE [...] space narrowing in the medial compartment with spga-gx-gpqmmpea joint space narrowing in the lateral compartment. Stable exam compared to 2019. [facility] Primary Diagnostic Code: Primary Interpreting Staff: HOUSTON MILLER, RADIOLOGIST Verified by tractor trailer operator for HOUSTON MILLER /[facility] Mar 27, 2024 01:22 PM HIP 2-3 VIEWS (LEF T): ROSE MARY BURKS [id number] -1955 M Exm Date: MAR 27, 2024@13:22 Req Phys: ASUNCION CABRAL Pat Loc: [facility] SW PACT HEARINGS REPORTER 6 (Req'g Loc) Img Loc: H-MAIN-X Service: [place] [address] (Case [id number] COMPLETE)HIP 2-3 VIEWS (LEFT) (RAD Detailed) CPT:30660 Reason for Study: Pain and falls Clinical History: Pain and falls Report Status: Verified Date Reported: MAR 27, 2024 Date Verified: MAR 27, 2024 Superintendent Construction E-Sig: Report: EXAM: HIP 2-3 VIEWS (LEFT) [...] of osteonecrosis of the left femoral head. [facility] Primary Diagnostic Code: Primary Interpreting Staff: HOUSTON MILLER, RADIOLOGIST Verified by tractor trailer operator for HOUSTON MILLER /HOUSTON ANGUIANO [facility] Mar 27, 2024 12:50 PM LDCT LUNG CANCER S CREENING: ROSE MARY BURKS [id number] -1955 M Exm Date: MAR 27, 2024@12:50 Req Phys: ASUNCION CABRAL Pat Loc: [facility] SW PACT HEARINGS REPORTER 6 (Req'g Loc) Img Loc: [facility]-COMPUTED TOMOGRAPHY-X Service: [place] [address] (Case [id number] COMPLETE)LDCT LUNG CANCER SCREENING (CT Detailed) CPT:07084 Reason for Study: lung cancer screening Clinical History: Vet was on the lung cancer screening , last chest CT WAS 01/02/2023, HE MOVED TO [place], JUST MOVED BACK HERE NOW. Report Status: Verified Date Reported: MAR 28, 2024 Date Verified: MAR 28, 2024 Superintendent Construction E-Sig: Report: Clinical Information: 68-year-old male presenting [...] r/o obstruction; Aggressive BP lowering; Referral to dopster or preventive contracts specialist 1. Delroy Gary, Conrad Aguirre, et al. [...] Computed Tomography / Society of Thoracic Radiology. [facility] Primary Diagnostic Code: LUNGRADS 2: BENIGN APPEARANCE OR BEHAVIOR Primary Interpreting Staff: ANDREW SAMS MD, RADIOLOGIST Verified by tractor trailer operator for ANDREW SAMS MD /ANDREW LIRIANO [facility] Encounter Notes: All associated encounter notes This section contains the clinical notes associated to the Encounter. Date/Time Encounter Note(s) Provider Source Mar 28, 2024 02:18 PM ADMINISTRATIVE NOT E: LOCAL TITLE: ADMINISTRATIVE NOTE STANDARD TITLE: ADMINISTRATIVE NOTE DATE OF NOTE: MAR 28, 2024@14:18:02 ENTRY DATE: MAR 28, 2024@14:18:02 AUTHOR: ROMÁN FAJARDO EXP COSIGNER: URGENCY: STATUS: [place] [id number] DATE: MAR 28, 2024 [facility] [address] [address] DEAR : THIS LETTER IS TO INFORM YOU THAT YOUR: XRAYS ARE: I tried to reach you by phone but unsuccessful. I aslo sent you a secure messaging. Your PCP/DNP Asuncion Cabral would like to inform you that your knee and left hip x-rays shows arthritis. Your PCP recommends Physical therapy. Please call the [place] [phone] extension [phone] to schedule your appt with Physical therapy. YOUR NEXT APPOINTMENT WILL BE: Not specified. SINCERELY, ROMÁN FAJARDO RN /kallie/ ROMÁN FAJARDOLEVER OPERATOR NURSE Signed: 03/28/2024 14:18 ROMÁN FAJARDO [facility]
--- OUTSIDE RECORDS SUMMARY | 2024-03-28 12:40 | XMS_ITS | Encounter Summary ---
Author Name [facility] [facility] [place] Address [address] [place] [address] Care Team Providers Care Canceling Machine Operator Name Role Phone AMANDEEP PETERS Primary [...] PART A May 04, 2019 PART A [id number] [phone] KIMMIE,ALVARO SHELTON PATIENT MEDICARE (WNR) MEDICARE (M) PART B May 04, 2019 PART B [id number] BURKS,AN CAT PATIENT MEDICARE (WNR) MEDICARE (M) PART B October 02, 2018 PART B [id number] KIMMIE,ALVARO ZHENGONY PATIENT MEDICARE (WNR) MEDICARE (M) PART A October 02, 2018 PART A [id number] [phone] KIMMIE,ALVARO SHELTON PATIENT Selected Encounter This section includes the information on record at [place] for the Encounter. Date/Time Encounter Type Encounter Description Reason Pro vider Source Mar 28, 2024 04:40 PM Outpatient Encounter ADMIN PAT ACTIVTIES (MASNONCT) IHE Encounter Template Text not used by [place] Plan of Treatment: Future Appointments (+ 6 months) and Future Tests (+/- 45 days) The Plan of Treatment section includes future care [facility] This section includes future appointments and future orders which are active, pending or scheduled. Future Appointments This section includes appointments that were scheduled to occur 6 months from the date of the Encounter, up to a maximum of 20 appointments. The data comes from all [place] treatment facilities. Appointment Date/Time Appointment Type Appointme nt Facility Name Apr 02, 2024 01:45 PM [facility] Apr 02, 2024 02:20 PM [facility] Apr 02, 2024 03:45 PM AMBULATORY - [facility]HAB [facility]ICIN [facility] Apr 15, 2024 08:30 AM [facility] NONE [facility] May 22, 2024 07:30 AM AM[facility]ULATORY - NONE [facility] May 22, 2024 10:30 AM AM[facility]ULATORY - NONE [facility] Jun 18, 2024 01:00 PM [facility] Jul 05, 2024 06:18 AM [facility] Jul 31, 2024 01:30 PM [facility] Aug 06, 2024 04:15 PM AMBULATORY - REHAB MEDICIN E [facility] Aug 08, 2024 01:00 PM AMBULATORY - REHAB MEDICIN E [facility] Aug 12, 2024 10:45 AM AMBULATORY - REHAB MEDICIN E [facility] Aug 19, 2024 10:15 AM AMBULATORY - REHAB MEDICIN E [facility] Aug 21, 2024 01:30 PM AMBULATORY - REHAB MEDICIN E [facility] Aug 26, 2024 10:45 AM AMBULATORY - REHAB MEDICIN E [facility] Aug 28, 2024 09:30 AM AMBULATORY - REHAB MEDICIN E [facility] Aug 29, 2024 10:15 AM AMBULATORY - REHAB MEDICIN E [facility] Sep 02, 2024 01:00 PM [facility] Sep 11, 2024 02:45 PM AMBULATORY - REHAB MEDICIN E [facility] Sep 25, 2024 10:45 AM AMBULATORY - REHAB MEDICIN E [facility] Lab Results: +/- 30 days of [...] Type Comment Feb 29, 2024 02:30 PM [facility] URINALYSIS URINE Specimen Type: URINE Comment: Microscopic Not Indicated Ordering Provider: HILARIO CABRAL Report Released Date/Time: Feb 29, 2024 01:30 PM Reporting Lab: [address] [address] Performing Lab: [address] [address] URINE COLOR Yellow Yellow URINE SPECIFIC GRAVITY 1.022 1.001-1.0 29 URINE BILIRUBIN Negative mg/dL Negative URINE KETONES Negative mg/dL Negative-Tr rachel UR GLUCOSE Normal mg/dL Normal UR PROTEIN Negative mg/dL URINE PH 5.5 5.0-8.0 CLARITY Clear Clear URINE BLOOD 0.03 mg/dL NITRITE, URINE Negative Negative LEUKOCYTE ESTERASE, URINE Negative URINE UROBILINOGEN Normal mg/dL Normal Feb 29, 2024 01:31 PM [facility] ALLERGEN FOOD PANEL SERUM Specimen Ty pe: SERUM Comment: TEST PERFORMED AT: [employer] [address] [address] Director: Joshua Medina MD, PhD, STEVE TEST PERFORMED AT: [employer] [address] [address] Director: Joshua Medina MD, PhD, STEVE TEST PERFORMED AT: [facility] [address] Director: Joshua Medina MD, PhD, STEVE TEST PERFORMED AT: [facility] [address] Director: Joshua Medina MD, PhD, STEVE TEST PERFORMED AT: [facility] [address] [address] Director: Joshua Medina MD, PhD, STEVE TEST PERFORMED AT: [facility] [address] [address] Director: Joshua Medina MD, PhD, STEVE TEST PERFORMED AT: [address] [address] Director: Joshua Medina MD, PhD, STEVE TEST PERFORMED AT: [address] [address] Director: Joshua Medina MD, PhD, STEVE TEST PERFORMED AT: [address] [address] Director: Joshua Medina MD, PhD, STEVE TEST PERFORMED AT: [address] [address] Director: Joshua Medina MD, PhD, STEVE TEST PERFORMED AT: [address] [address] Director: Joshua Medina MD, PhD, STEVE TEST PERFORMED AT: [address] [address] Director: Joshua Medina MD, PhD, STEVE TEST PERFORMED AT: [address] [address] Director: Joshua Medina MD, PhD, STEVE TEST PERFORMED AT: [address] [address] Director: Joshua Medina MD, PhD, STEVE TEST PERFORMED AT: [facility] [address] [address] Director: Joshua Medina MD, PhD, STEVE TEST PERFORMED AT: [address] [address] Director: Joshua Medina MD, PhD, STEVE TEST PERFORMED AT: [facility] [address] [place] [address] Director: Joshua Medina MD, PhD, STEVE TEST PERFORMED AT: [facility] [address] Director: Joshua Medina MD, PhD, STEVE TEST PERFORMED AT: [address] Director: Joshua Medina MD, PhD, STEVE TEST PERFORMED AT: [place] [address] Director: Joshua Medina MD, PhD, STEVE TEST PERFORMED AT: [facility] [employer] [address] Director: Joshua Medina MD, PhD, STEVE TEST PERFORMED AT: [address] Director: Joshua Medina MD, PhD, STEVE TEST PERFORMED AT: [employer] [address] Director: Joshua Medina MD, PhD, STEVE TEST PERFORMED AT: [place] [address] Director: Joshua Medina MD, PhD, STEVE TEST PERFORMED AT: [employer] [place] [address] Director: Joshua Medina MD, PhD, STEVE INTERPRETATION [...] intended for specialist use. TEST PERFORMED AT: [facility] [address] [address] Director: Joshua Medina MD, PhD, STEVE TEST PERFORMED AT: TEST PERFORMED AT: [facility] [address] [address] [place] [address] Director: Joshua Medina MD, PhD, STEVE Director: Joshua Medina MD, PhD, STEVE Ordering Provider: HILARIO CABRAL Report Released Date/Time: Feb 29, 2024 01:30 PM Reporting Lab: [address] [address] Performing Lab: [facility] CA IGE TOTAL SERUM 43 kU/L 114 OR LESS Barley IgE <0.10 kU/L Beef IgE <0.10 kU/L Pepper C. annuum IgE <0.10 kU/L Cabbage IgE <0.10 kU/L Carrot IgE <0.10 kU/L Chicken IgE <0.10 kU/L Codfish IgE <0.10 kU/L [place] IgE <0.10 kU/L Crab IgE <0.10 kU/L Egg White IgE <0.10 kU/L Grape IgE <0.10 kU/L Lettuce IgE <0.10 kU/L Milk (Cow) IgE <0.10 kU/L [place] Recinos IgE <0.10 kU/L Oat IgE <0.10 kU/L [place] IgE <0.10 kU/L Peanut IgE <0.10 kU/L Potato IgE <0.10 kU/L Pork IgE <0.10 kU/L Rice IgE <0.10 kU/L [place] IgE <0.10 kU/L Shrimp IgE <0.10 kU/L Soybean IgE <0.10 kU/L Tomato IgE <0.10 kU/L Tuna IgE <0.10 kU/L Wheat IgE <0.10 kU/L Feb 29, 2024 01:31 PM [facility] QUANTIFERON (TUC/LB) BLOOD Specimen T ype: BLOOD Comment: A Negative result does not preclude the possibility of M. tuberculosis infection or tuberculosis disease: false-negative results can be due to the stage of infection (e.g., specimen obtained prior to the development of cellular immune response or other immunological variables). Ordering Provider: HILARIO CABRAL Report Released Date/Time: Feb 29, 2024 01:30 PM Reporting Lab: [address] [address] Performing Lab: [facility] [address] [address] QFT-Quantiferon Negative Negative QFT-NIL control 0.0619 [IU]/mL QFT-TB1 antigen 0.0000 [IU]/mL QFT-TB2 antigen 0.0080 [IU]/mL QFT-Mitogen control 9.9381 [IU]/mL Feb 29, 2024 01:31 PM [facility] HEMOGLOBIN A1C BLOOD Specimen Type: B LOOD Comment: [id number] Values obtained from A1C measurements can vary. For typical A1C assays, a reported value of 7.0 could actually be between 6.72 and 7.28 if measured by a reference method. A reported value of 9.0 could actually be between 8.73 and 9.27. Ref: https://ngsp.org/CAPdata.asp Ordering Provider: HILARIO CABRAL Report Released Date/Time: Feb 29, 2024 01:30 PM Reporting Lab: [address] [place] [address] Performing Lab: [address] [address] HEMOGLOBIN A1C 5.8 4.4-6.4 Feb 29, 2024 01:31 PM [facility] HEPATITIS C AB PANEL SERUM Specimen T ype: SERUM Comment: Since Total PSA value is considered truly negative, confirmatory Free PSA assay is not indicated. Ordering Provider: HILARIO CABRAL Report Released Date/Time: Feb 29, 2024 01:30 PM Reporting Lab: [place] [address] Performing Lab: [address] [address] HEPATITIS C ANTIBODY NEGATIVE <Negative Feb 29, 2024 01:31 PM [facility] TSH W/REFLEX FT4 PLASMA Specimen Type: PLASMA Comment: eGFR CKD-EPI eGFR calculated using the 2021 IDM-LQA-edeunpsptt equation; units of measure are mL/min/1.73m~2. eGFR [...] Feb 29, 2024 01:30 PM Reporting Lab: [address] [address] Performing Lab: [address] [address] TSH 1.246 u[IU]/mL 0.500-5.000 Feb 29, 2024 01:31 PM [facility] LIPID STUDY (MUST BE FASTING) PLASMA S pecimen Type: PLASMA Comment: eGFR CKD-EPI eGFR calculated using the 2020 KNI-DJI-ttowhhyets equation; units of measure are mL/min/1.73m~2. eGFR [...] Feb 29, 2024 01:30 PM Reporting Lab: [address] [address] Performing Lab: [address] [address] CHOLESTEROL 186 mg/dL 145-200 TRIGLYCERIDE 68 mg/dL 47-150 HDL 49 mg/dL 40-60 LDL-ABBY 123 mg/dL 0-130 Feb 29, 2024 01:31 PM [facility] CBC & DIFF BLOOD Specimen Type: BLOOD No comment entered. Ordering Provider: HILARIO CABRAL Report Released Date/Time: Feb 29, 2024 01:30 PM Reporting Lab: [address] [address] Performing Lab: [address] [address] WBC 7.0 10*3/uL 3.5-10.6 RBC 4.40 10*6/uL [...] 10*3/uL 0.00-0.07 Feb 29, 2024 01:31 PM [facility] VITAMIN D (25-OH VITAMIN D) SCREEN PLASMA Specimen Type: PLASMA No comment entered. Ordering Provider: HILARIO CABRAL Report Released Date/Time: Feb 29, 2024 01:30 PM Reporting Lab: [address] [address] Performing Lab: [address] [address] VITAMIN D (25-OH VITAMIN D) SCREEN 24.2 ng/mL L 30.0-60.0 Feb 29, 2024 01:31 PM [facility] COMPREHENSIVE METABOLIC PANEL PLASMA S pecimen Type: PLASMA Comment: eGFR CKD-EPI eGFR calculated using the 2020 LRU-CSL-svnqqtnriw equation; units of measure are mL/min/1.73m~2. eGFR [...] Feb 29, 2024 01:30 PM Reporting Lab: [address] [address] Performing Lab: [address] [address] BUN 15 mg/dL 7-20 GLUCOSE 98 mg/dL [...] L >90 Feb 29, 2024 01:31 PM [facility] PSA /Reflex Free PSA SERUM Specimen T ype: SERUM Comment: Since Total PSA value is considered truly negative, confirmatory Free PSA assay is not indicated. Ordering Provider: HILARIO CABRAL Report Released Date/Time: Feb 29, 2024 01:30 PM Reporting Lab: [address] [address] Performing Lab: [address] [address] PSAg 2.18 ng/mL 0.01-4.00 Social History: Smoking Status (Most current) and Tobacco Use (All prior to encounter date) This section includes the most current, and the historical, smoking and tobacco- related health factors from the [facility] facility where the Encounter took place. Current Smoking Status This section includes the most current smoking, or tobacco-related health factor, from the [facility] facility where the Encounter took place. Date/Time Current Smoking Status Comment Bautista ity Jan 04, 2017 03:31 PM CURRENT TOBACCO USER [facility] Tobacco Use History This section includes a history of the smoking, or tobacco-related health factors, that were collected on or before the date of the Encounter. The data comes from the [facility] facility where the Encounter took place. Date/Time Smoking Status/Tobacco Use Comment F acility Jan 04, 2017 03:31 PM TOB INFO ON NON-VA STOP SMOKING CLINIC [facility] Jan 04, 2017 03:31 PM TOBACCO OFFERED PT MEDS (PROVIDE R) [facility] May 31, 2011 09:24 AM QUIT TOBACCO IN THE LAST 12 [facility] Advance Directives: All historical and current Section Date Range: From patient's date of to the date document was created. This section includes ALL of a patient's completed or amended [place] Advance and Rescinded Directives. The entries below indicate that a directive exists for the patient, but an actual copy is not included with this document. The data comes from all [place] facilities. Date Advance Directives Provider Source Jun 13, 2023 ADVANCE DIRECTIVE DISCUSSION VÍCTOR HAMPTON [facility] Jan 16, 2008 ADVANCE DIRECTIVE ROBERTA GARCIA [facility] Jan 16, 2008 ADVANCE DIRECTIVE VAR[facility]PH [facility] Radiology Reports: +/- 30 days of the [...] the Encounter. The data comes from all [place] treatment facilities. Date/Time Radiology Report Provider Source Mar 27, 2024 01:23 PM KNEE 4 OR MORE VIE WS (LEFT): BURKSROSE MARY KATHY [id number] -1955 M Ex Date: MAR 27, 2024@13:23 Req Phys: HILARIO CABRAL Loc: ADMINISTRATIVE CONTACT (Req'g Img Loc: H-MAIN-X Service: [place] [address] (Case [id number] COMPLETE)KNEE 4 OR MORE VIEWS (LEFT) (RAD Detailed) CPT:21675 Reason for Study: djd Clinical History: 68 y.o male w/ lumbar and L knee pain, keep falling when walks Report Status: Verified Date Reported: MAR 27, 2024 Date Verified: MAR 27, 2024 Medical Records Supervisor E-Sig: Report: EXAM: KNEE 4 OR MORE [...] space narrowing in the medial compartment with pdwj-va-vystfqbx joint space narrowing in the lateral compartment. Stable exam compared to 2019. -[facility] Primary Diagnostic Code: Primary Interpreting Staff: HOUSTON MILLER, RADIOLOGIST Verified by wheel mill operator for HOUSTON MILLER /MIREYA [facility]ER [facility] Mar 27, 2024 01:23 PM KNEE 4 OR MORE VIE WS (RIGHT): ROSE MARY BURKS [id number] -1955 Ex Date: MAR 27, 2024@13:23 Req Phys: MARIANNAFANDAVID Pat Loc: ADMINISTRATIVE CONTACT (Req'g Img Loc: H-MAIN-X Service: [place] [address] (Case [id number] COMPLETE)KNEE 4 OR MORE VIEWS (RIGHT) (RAD Detailed) CPT:13442 Reason for Study: djd Clinical History: 68 y.o male w/ lumbar and L knee pain, keep falling when walks Report Status: Verified Date Reported: MAR 27, 2024 Date Verified: MAR 27, 2024 Medical Records Supervisor E-Sig: Report: EXAM: KNEE 4 OR MORE [...] space narrowing in the medial compartment with xwlz-hp-lqjfsiet joint space narrowing in the lateral compartment. Stable exam compared to 2019. -[facility] Primary Diagnostic Code: Primary Interpreting Staff: HOUSTON MILLER, RADIOLOGIST Verified by wheel mill operator for HOUSTON MILLER /MIREYA [facility] Mar 27, 2024 01:22 PM HIP 2-3 VIEWS (LEF T): ROSE MARY BURKS [id number] -1955 M Exm Date: MAR 27, 2024@13:22 Req Phys: HILARIO CABRAL Pat Loc: [facility] SW PACT THERAPEUTIC STRATEGY LEAD 6 (Req'g Loc) Img Loc: H-MAIN-X Service: [place] [address] (Case [id number] COMPLETE)HIP 2-3 VIEWS (LEFT) (RAD Detailed) CPT:50836 Reason for Study: Pain and falls Clinical History: Pain and falls Report Status: Verified Date Reported: MAR 27, 2024 Date Verified: MAR 27, 2024 Medical Records Supervisor E-Sig: Report: EXAM: HIP 2-3 VIEWS (LEFT) [...] of osteonecrosis of the left femoral head. -[facility] Primary Diagnostic Code: Primary Interpreting Staff: HOUSTON MILLER, RADIOLOGIST Verified by wheel mill operator for HOUSTON MILLER /HOUSTON ANGUIANO [facility] Mar 27, 2024 12:50 PM LDCT LUNG CANCER S CREENING: ROSE MARY BURKS [id number] -1955 M Exm Date: MAR 27, 2024@12:50 Req Phys: HILARIO CABRAL Pat Loc: [facility] SW PACT THERAPEUTIC STRATEGY LEAD 6 (Req'g Loc) Img Loc: [facility]-COMPUTED TOMOGRAPHY-X Service: [place] [address] (Case [id number] COMPLETE)LDCT LUNG CANCER SCREENING (CT Detailed) CPT:64923 Reason for Study: lung cancer screening Clinical History: Vet was on the lung cancer screening , last chest CT WAS 01/02/2023, HE MOVED TO [place], JUST MOVED BACK HERE NOW. Report Status: Verified Date Reported: MAR 28, 2024 Date Verified: MAR 28, 2024 Medical Records Supervisor E-Sig: Report: Clinical Information: 68-year-old male presenting [...] r/o obstruction; Aggressive BP lowering; Referral to hide buffer or preventive lidar technician 1. Delroy Gary, Conrad Aguirre, et al. [...] Computed Tomography / Society of Thoracic Radiology. -[facility] Primary Diagnostic Code: LUNGRADS 2: BENIGN APPEARANCE OR BEHAVIOR Primary Interpreting Staff: ANDREW SAMS MD, RADIOLOGIST Verified by wheel mill operator for ANDREW SAMS MD /ANDREW LIRIANO [facility] Encounter Notes: All associated encounter notes This section contains the clinical notes associated to the Encounter. Date/Time Encounter Note(s) Provider Source Mar 28, 2024 04:40 PM TELEPHONE ENCOUNTE R NOTE: LOCAL TITLE: TELEPHONE CONTACT STANDARD TITLE: TELEPHONE ENCOUNTER NOTE DATE OF NOTE: MAR 28, 2024@16:40 ENTRY DATE: MAR 28, 2024@16:40:57 AUTHOR: HILARIO CABRAL EXP COSIGNER: URGENCY: STATUS: COMPLETED [address] [place], [place] [address] Patient RN, please let vet know the result of his lung cancer screenin.No nodules detected 2.Emphysema: None. 3.The Visual Coronary Artery Calcium (CAC) Score is 1. Recommendations: Follow-up CT to be obtained in 12 months -diann ordered by pulm, screening team. THANKS /kallie/ HILARIO CABRAL DNP, ANP-C NURSE PRACTITIONER Signed: 03/28/2024 16:41 Receipt Acknowledged By: 03/31/2024 11:12 /es/ CHRISTI BENAVIDEZ, RN child watch attendant HILARIO CABRAL [facility]
--- OUTSIDE RECORDS SUMMARY | 2024-04-02 09:45 | XMS_ITS | Encounter Summary ---
Author Name [facility] [place] [facility] [place] [facility] [place] Address [address] [place] [address] Care Team Providers Care Esthetician And Manager Medical Spa Name Role Phone AMANDEEP PETERS Primary Care [...] PART A May 04, 2019 PART A [id number] KIMMIE,ALVARO SHELTON PATIENT MEDICARE (WNR) MEDICARE (M) PART B May 04, 2019 PART B [id number] KIMMIE,ALVARO ZHENGONY PATIENT MEDICARE (WNR) MEDICARE (M) PART A October 02, 2018 PART A [id number] KIMMIE,ALVARO ZHENGONY PATIENT MEDICARE (WNR) MEDICARE (M) PART B October 02, 2018 PART B [id number] ALVARO BURKS PATIENT Selected Encounter This section includes the information on record at [place] for the Encounter. Date/Time Encounter Type Encounter Description Reason Provider Source Apr 02, 2024 01:45 PM OFF/OP EST OCTOBER X REQ PHY/QHP GENERAL INTERNAL MEDICINE ICD-10-CM R69 Illness, unspecified D IHE Encounter Template Text not used by [place] Assessments - Encounter Diagnoses This section includes the primary and secondary diagnoses documented for the Encounter. Date/Time Primary/Secondary Diagnosis Diagnosis Name Provider Source Apr 02, 2024 02:11 PM PRIMARY Illness, unspecified ,OCTOBER D [facility] Plan of Treatment: Future Appointments (+ 6 months) and Future Tests (+/- 45 days) The Plan of Treatment section includes future care activities for the patient from all [place] treatment[facility] hospitalities. This section includes future appointments and future orders which are active, pending or scheduled. Future Appointments This section includes appointments that were scheduled to occur 6 months from the date of the Encounter, up to a maximum of 20 appointments. The data comes from all [place] treatment facilities. Appointment Date/Time Appointment Type Appointme nt Facility Name Apr 15, 2024 08:30 AM AMBULATORY - NONE [facility] May 22, 2024 07:30 AM AMBULATORY - NONE [facility] May 22, 2024 10:30 AM [facility]ORY - NONE [facility] Jun 18, 2024 01:00 PM [facility] Jul 05, 2024 06:18 AM AMBULATORY - MEDICINE [facility] Jul 31, 2024 01:30 PM [facility] Aug 06, 2024 04:15 PM AMBULATORY - REHAB MEDICIN E [facility] Aug 08, 2024 01:00 PM AMBULATORY - REHAB MEDICIN E [facility] Aug 12, 2024 10:45 AM AMBULATORY - REHAB MEDICIN E [facility] Aug 19, 2024 10:15 AM AMBULATORY - REHAB MEDICIN E [facility] Aug 21, 2024 01:30 PM AMBULATORY - REHAB MEDICIN E [facility] Aug 26, 2024 10:45 AM AMBULATORY - REHAB MEDICIN E [facility] Aug 28, 2024 09:30 AM AMBULATORY - REHAB MEDICIN E [facility] Aug 29, 2024 10:15 AM AMBULATORY - REHAB MEDICIN E [facility] Sep 02, 2024 01:00 PM [facility]UL[facility]ORY [facility] Sep 11, 2024 02:45 PM AMBULATORY - REHAB MEDICIN E [facility] Sep 25, 2024 10:45 AM AMBULATORY - REHAB MEDICIN E [facility] Vital Signs: All taken on the encounter date This section contains inpatient and outpatient Vital Signs collected on the date of the Encounter. Date/Time Temperature Pulse Blood Pressure Respiratory Rate SP02 Pain Height Weight Body Mass Index Source Apr 02, 2024 01:50 PM 97.6 85 134/77 18 98 10 [facility] Social History: Smoking Status (Most current) and Tobacco Use (All prior to encounter date) This section includes the most current, and the historical, smoking and tobacco- related health factors from the [place] facility where the Encounter took place. Current Smoking Status This section includes the most current smoking, or tobacco-related health factor, from the [place] facility where the Encounter took place. Date/Time Current Smoking Status Comment Facil ity Feb 29, 2024 01:30 PM VA-TOBACCO QUIT 1 TO < 5 YRS [facility] Tobacco Use History This section includes a history of the smoking, or tobacco-related health factors, that were collected on or before the date of the Encounter. The data comes from the [place] facility where the Encounter took place. Date/Time Smoking Status/Tobacco Use Comment F acility Feb 29, 2024 01:30 PM VA-TOBACCO QUIT 1 TO < 5 YRS [facility] Feb 29, 2024 01:30 PM VA-TOBACCO QUIT 15 YRS OR MORE [facility] Jan 03, 2023 11:30 AM VA-TOBACCO DOESNT USE WI 30 MIN WAKEUP [facility] Jan 03, 2023 11:30 AM VA-TOBACCO USE 30 YEARS OR MORE [facility] Jan 03, 2023 11:30 AM VA-TOBACCO USE ADVICE [facility] Jan 03, 2023 11:30 AM VA-TOBACCO USE PLASTIC SURGERY COORDINATOR NO [facility] Jan 03, 2023 11:30 AM VA-TOBACCO USE MED NO [facility] Jan 03, 2023 11:30 AM VA-TOBACCO USER SOME DAYS [facility] Jan 02, 2022 08:00 AM VA-TOBACCO USE 30 YEARS OR MORE [facility] Jan 02, 2022 08:00 AM VA-TOBACCO USE ADVICE [facility] Jan 02, 2022 08:00 AM VA-TOBACCO USE PLASTIC SURGERY COORDINATOR NO [facility] Jan 02, 2022 08:00 AM VA-TOBACCO USE MED NO [facility] Jan 02, 2022 08:00 AM VA-TOBACCO USE WI 30 MIN OF WAKEUP [facility] Jan 02, 2022 08:00 AM VA-TOBACCO USER EVERY DAY [facility] Feb 15, 2021 11:30 AM VA-TOBACCO USE > 1 5 LESS THAN 30 YEARS [facility] Feb 15, 2021 11:30 AM VA-TOBACCO USE ADVICE [facility] Feb 15, 2021 11:30 AM VA-TOBACCO USE PLASTIC SURGERY COORDINATOR NO [facility] Feb 15, 2021 11:30 AM VA-TOBACCO USE MED NO [facility] Feb 15, 2021 11:30 AM VA-TOBACCO USE WI 30 MIN OF WAKEUP [facility] Feb 15, 2021 11:30 AM VA-TOBACCO USER EVERY DAY [facility] Nov 13, 2018 08:15 AM VA-TOBACCO USE > 1 5 LESS THAN 30 YEARS [facility] Nov 13, 2018 08:15 AM VA-TOBACCO USE ADVICE [facility] Nov 13, 2018 08:15 AM VA-TOBACCO USE PLASTIC SURGERY COORDINATOR NO [facility] Nov 13, 2018 08:15 AM VA-TOBACCO USE MED NO [facility] Nov 13, 2018 08:15 AM VA-TOBACCO USE WI 30 MIN OF WAKEUP [facility] Nov 13, 2018 08:15 AM VA-TOBACCO USER EVERY DAY [facility] Aug 10, 2010 03:28 PM CURRENT TOBACCO USER [facility] Aug 28, 2007 09:40 AM CURRENT TOBACCO USER cigarettes 1 pack every 2 days [facility] Aug 28, 2007 09:40 AM TOBACCO QUESTIONNA ALTHEA COMPLETED [facility] Jul 16, 2006 11:25 AM CURRENT TOBACCO USER 8-12 cigs daily [facility] Advance Directives: All historical and current Section Date Range: From patient's date of to the date document was created. This section includes ALL of a patient's completed or amended [place] Advance and Rescinded Directives. The entries below indicate that a directive exists for the patient, but an actual copy is not included with this document. The data comes from all [place] facilities. Date Advance Directives Provider Source Jun 13, 2023 ADVANCE DIRECTIVE DISCUSSION VÍCTOR HAMPTON [facility] Jan 16, 2008 ADVANCE DIRECTIVE ROBERTA GARCIA [facility] Jan 16, 2008 ADVANCE DIRECTIVE RALPH DE DIOS NIX [facility] Radiology Reports: +/- 30 days of [...] the Encounter. The data comes from all [place] treatment facilities. Date/Time Radiology Report Provider Source Mar 27, 2024 01:23 PM KNEE 4 OR MORE VIE WS (LEFT): ROSE MARY BURKS [id number] -1955 M Ex Date: MAR 27, 2024@13:23 Req Phys: MARIANNAFANDAVID Palomino Loc: ADMINISTRATIVE CONTACT (Req'g Img Loc: H-MAIN-X Service: [place] [address] (Case [id number] COMPLETE)KNEE 4 OR MORE VIEWS (LEFT) (RAD Detailed) CPT:94810 Reason for Study: djd Clinical History: 68 y.o male w/ lumbar and L knee pain, keep falling when walks Report Status: Verified Date Reported: MAR 27, 2024 Date Verified: MAR 27, 2024 Test Engineering Technician E-Sig: Report: EXAM: KNEE 4 OR MORE [...] space narrowing in the medial compartment with tdlw-to-yefrqzir joint space narrowing in the lateral compartment. Stable exam compared to 2019. [facility] Primary Diagnostic Code: Primary Interpreting Staff: HOUSTON MILLER, RADIOLOGIST Verified by order picker/assembler for HOUSTON MILLER /HOUSTON ANGUIANOTRINITY HEALTH SYSTEM T[facility] MEDICAL CENTERKarey [facility] Mar 27, 2024 01:23 PM KNEE 4 OR MORE VIE WS (RIGHT): ROSE MARY [id number] -1955 M Exm Date: MAR 27, 2024@13:23 Req Phys: HILARIO CABRAL Loc: ADMINISTRATIVE CONTACT (Req'g Img Loc: H-MAIN-X Service: [place] [address] (Case [id number] COMPLETE)KNEE 4 OR MORE VIEWS (RIGHT) (RAD Detailed) CPT:01814 Reason for Study: djd Clinical History: 68 y.o male w/ lumbar and L knee pain, keep falling when walks Report Status: Verified Date Reported: MAR 27, 2024 Date Verified: MAR 27, 2024 Test Engineering Technician E-Sig: Report: EXAM: KNEE 4 OR MORE [...] space narrowing in the medial compartment with znqs-qs-sgoxkpxs joint space narrowing in the lateral compartment. Stable exam compared to 2019. [facility] Primary Diagnostic Code: Primary Interpreting Staff: HOUSTON MILLER, RADIOLOGIST Verified by order picker/assembler for HOUSTON MILLER /HOUSTON ANGUIANO [facility] Mar 27, 2024 01:22 PM HIP 2-3 VIEWS (LEF T): ROSE MARY BURKS KATHY [id number] -1955 M Exm Date: MAR 27, 2024@13:22 Req Phys: HILARIO CABRAL Loc: [facility] SW PACT BRAKE LINING FINISHER 6 (Req'g Loc) Img Loc: H-MAIN-X Service: [place] [address] (Case [id number] COMPLETE)HIP 2-3 VIEWS (LEFT) (RAD Detailed) CPT:32668 Reason for Study: Pain and falls Clinical History: Pain and falls Report Status: Verified Date Reported: MAR 27, 2024 Date Verified: MAR 27, 2024 Test Engineering Technician E-Sig: Report: EXAM: HIP 2-3 VIEWS (LEFT) [...] of osteonecrosis of the left femoral head. [facility] Primary Diagnostic Code: Primary Interpreting Staff: HOUSTON MILLER, RADIOLOGIST Verified by order picker/assembler for HOUSTON MILLER /HOUSTON ANGUIANO [facility] Mar 27, 2024 12:50 PM LDCT LUNG CANCER S CREENING: ROSE MARY BURKS [id number] -1955 M Exm Date: MAR 27, 2024@12:50 Req Phys: HILARIO CABRAL Pat Loc: [facility] SW PACT BRAKE LINING FINISHER 6 (Req'g Loc) Img Loc: [facility]-COMPUTED TOMOGRAPHY-X Service: [place] [address] (Case [id number] COMPLETE)LDCT LUNG CANCER SCREENING (CT Detailed) CPT:89305 Reason for Study: lung cancer screening Clinical History: Vet was on the lung cancer screening , last chest CT WAS 01/02/2023, HE MOVED TO [place], JUST MOVED BACK HERE NOW. Report Status: Verified Date Reported: MAR 28, 2024 Date Verified: MAR 28, 2024 Test Engineering Technician E-Sig: Report: Clinical Information: 68-year-old male presenting [...] r/o obstruction; Aggressive BP lowering; Referral to fabrication manager or preventive insurance broker 1. Di Anguiano, Delroy MAURICE, Conrad D, [...] Computed Tomography / Society of Thoracic Radiology. [facility] Primary Diagnostic Code: LUNGRADS 2: BENIGN APPEARANCE OR BEHAVIOR Primary Interpreting Staff: ANDREW SAMS MD, RADIOLOGIST Verified by order picker/assembler for ANDREW SAMS MD /ANDREW LIRIANO [facility] Encounter Notes: All associated encounter notes This section contains the clinical notes associated to the Encounter. Date/Time Encounter Note(s) Provider Source Apr 02, 2024 01:50 PM NURSING E & M NOTE : LOCAL TITLE: UNSCHEDULED NURSING ASSESSMENT STANDARD TITLE: NURSING E & M NOTE DATE OF NOTE: APR 02, 2024@13:50 ENTRY DATE: APR 02, 2024@13:56:43 AUTHOR: AGNIESZKAOCTOBER Carla EXP COSIGNER: URGENCY: STATUS: COMPLETED Coronavirus Disease 2019 (COVID-19) Screen The patient was asked if in the last 14 days they have had new onset of any COVID-19 symptoms. They report the following: No symptoms Within the past 14 days, the patient reports no exposure to someone with a febrile/respiratory illness or someone with a known or suspected case of COVID-19 (within 6 feet for > 15 minutes). Result: Screen is negative. Result: Screen is negative. 68 Y/O MALE arrived via Ambulatory ALLERGIES: BACTRIM Patient Phone number verified: Yes SUBJECTIVE: Vet walks in clinic c/o bilateral leg/low back pain x 2 years. Vet says he has an appointment with PT today as well. Vet denies cp, no sob, no fever, no dizziness, no n/v, denies bowel/bladder concerns but says he does have a hard time getting up at night to do number 2 because of pain , denies cold/blue toes/feet, denies pain radiating to neck/shoulders/jaw/arm. Chief Complaint/Reason for Visit: bilateral leg/low back pain x 2 years Does the patient have suicidal/homicidal ideations? No. Has patient traveled out of the country in the last 21 days? No. OBJECTIVE: Vet alert and oriented x4. Ambulatory, slow quentin. Vet speaks in full sentences, no respiratory distress noted. Vital signs stable, charted. Does patient currently have any pain? Yes Chronic Yes Site location: low back Quality: (aching, burning, cramping, dull, sharp, shooting, stabbing, throbbing, tender) aching Pain level: 10 Onset/Duration: (how long have you had your pain): x 2 years Pattern: (comes and goes, nightly, when breathing, etc.): worse when walking ASSESSMENT: Comfort, impaired Disposition: Primary Care Provider PLAN/NEXT STEP OF CARE: Consult with Primary Care Provider Vet agreeable to see provider today 04/02/2024 14:20 [facility] SW GEN MED PA SAME DAY Vet given instructions on home care and educated on the red flags signs and symptoms which would prompt immediate emergency care as referenced by the [employer] Telephone Triage Protocols for Nurses,5th Ed. (2020). Vet states understanding to go to UC/ER or call 911 if condition worsens/changes. As referenced by the [employer] Telephone Triage Protocols for Nurses, 5th Ed. (2020). PACT RESOURCE LIST, PLEASE USE [employer] TRIAGE MANUAL LINK Vet says will keep appointment with PT 04/02/2024 15:45 [facility] SW PT DME Evaluation: Vet agreeable with plan. /kallie/ SHANELL AARON RN Signed: 04/02/2024 14:11 Receipt Acknowledged By: 04/02/2024 14:15 /kallie/ HILARIO CABRAL DNP, ANP-C NURSE PRACTITIONER SHANELL AARON [facility]
--- OUTSIDE RECORDS SUMMARY | 2024-04-02 10:20 | XMS_ITS | Encounter Summary ---
Author Name [facility] [place] [facility] [place] [facility] [place] Address [address] [place] [address] Care Team Providers Care Service Station Cashier Name Role Phone AMANDEEP PETERS Primary Care [...] PART A May 04, 2019 PART A [id number] KIMMIE,ALVARO SHELTON PATIENT MEDICARE (WNR) MEDICARE (M) PART B May 04, 2019 PART B [id number] BURKS,AN CAT PATIENT MEDICARE (WNR) MEDICARE (M) PART A October 02, 2018 PART A [id number] [phone] KIMMIE,AN CAT PATIENT MEDICARE (WNR) MEDICARE (M) PART B October 02, 2018 PART B [id number] KIMMIE,ALVARO SHELTON PATIENT Selected Encounter This section includes the information on record at [place] for the Encounter. Date/Time Encounter Type Encounter Description Reason Provider Source Apr 02, 2024 02:20 PM OFFICE O/P EST LOW 20 MIN GENERAL INTERNAL MEDICINE ICD-10-CM M54.32 Sciatica, left side JOBY NEGRON [facility] Encounter Template Text not used by [place] Assessments - Encounter Diagnoses This section includes the primary and secondary diagnoses documented for the Encounter. Date/Time Primary/Secondary Diagnosis Diagnosis Name Provider Source Apr 02, 2024 03:22 PM PRIMARY Sciatica, left side KEVON NEGRON [facility] Apr 02, 2024 03:22 PM SECONDARY Other low back pain KEVON NEGRON [facility] Plan of Treatment: Future Appointments (+ 6 months) and Future Tests (+/- 45 days) The Plan of Treatment section includes future care activities for the [facility] [place] [facility] This section includes future appointments and future orders which are active, pending or scheduled. Future Appointments This section includes appointments that were scheduled to occur 6 months from the date of the Encounter, up to a maximum of 20 appointments. The data comes from all [place] treatment facilities. Appointment Date/Time Appointment Type Appointme nt Facility Name Apr 15, 2024 08:30 AM AMBULATORY - NONE [facility] May 22, 2024 07:30 AM AMBULATORY - NONE [facility] May 22, 2024 10:30 AM AMBULATORY - NONE [facility] Jun 18, 2024 01:00 PM AM[facility]UL[facility]ORY - SURGERY [facility] Jul 05, 2024 06:18 AM [facility]ATORY - MEDICINE [facility] Jul 31, 2024 01:30 PM [facility] Aug 06, 2024 04:15 PM AMBULATORY - REHAB MEDICIN E [facility] Aug 08, 2024 01:00 PM AMBULATORY - REHAB MEDICIN E [facility] Aug 12, 2024 10:45 AM AMBULATORY - REHAB MEDICIN E [facility] Aug 19, 2024 10:15 AM AMBULATORY - REHAB MEDICIN E [facility] Aug 21, 2024 01:30 PM AMBULATORY - REHAB MEDICIN E [facility] Aug 26, 2024 10:45 AM AMBULATORY - REHAB MEDICIN E [facility] Aug 28, 2024 09:30 AM AMBULATORY - REHAB MEDICIN E [facility] Aug 29, 2024 10:15 AM AMBULATORY - REHAB MEDICIN E [facility] Sep 02, 2024 01:00 PM [facility] - [facility]GERY [facility] Sep 11, 2024 02:45 PM AMBULATORY - REHAB MEDICIN E [facility] Sep 25, 2024 10:45 AM AMBULATORY - REHAB [facility] Vital Signs: All taken on the encounter date This section contains inpatient and outpatient Vital Signs collected on the date of the Encounter. Date/Time Temperature Pulse Blood Pressure Respiratory Rate SP02 Pain Height Weight Body Mass Index Source Apr 02, 2024 01:50 PM 97.6 85 134/77 18 98 10 [facility] Social History: Smoking Status (Most current) and Tobacco Use (All prior to encounter date) This section includes the most current, and the historical, smoking and tobacco- related health factors from the [place] facility where the Encounter took place. Current Smoking Status This section includes the most current smoking, or tobacco-related health factor, from the [place] facility where the Encounter took place. Date/Time Current Smoking Status Comment Facil ity Feb 29, 2024 01:30 PM VA-TOBACCO QUIT 15 YRS OR MORE [facility] Tobacco Use History This section includes a history of the smoking, or tobacco-related health factors, that were collected on or before the date of the Encounter. The data comes from the [place] facility where the Encounter took place. Date/Time Smoking Status/Tobacco Use Comment F acility Feb 29, 2024 01:30 PM VA-TOBACCO QUIT 1 TO < 5 YRS [facility] Feb 29, 2024 01:30 PM VA-TOBACCO QUIT 15 YRS OR MORE [facility] Jan 03, 2023 11:30 AM VA-TOBACCO DOESNT USE WI 30 MIN WAKEUP [facility] Jan 03, 2023 11:30 AM VA-TOBACCO USE 30 YEARS OR MORE [facility] Jan 03, 2023 11:30 AM VA-TOBACCO USE ADVICE [facility] Jan 03, 2023 11:30 AM VA-TOBACCO USE PREFABRICATED HOUSES TRIMMER NO [facility] Jan 03, 2023 11:30 AM VA-TOBACCO USE MED NO [facility] Jan 03, 2023 11:30 AM VA-TOBACCO USER SOME DAYS [facility] Jan 02, 2022 08:00 AM VA-TOBACCO USE 30 YEARS OR MORE [facility] Jan 02, 2022 08:00 AM VA-TOBACCO USE ADVICE [facility] Jan 02, 2022 08:00 AM VA-TOBACCO USE PREFABRICATED HOUSES TRIMMER NO [facility] Jan 02, 2022 08:00 AM VA-TOBACCO USE MED NO [facility] Jan 02, 2022 08:00 AM VA-TOBACCO USE WI 30 MIN OF WAKEUP [facility] Jan 02, 2022 08:00 AM VA-TOBACCO USER EVERY DAY [facility] Feb 15, 2021 11:30 AM VA-TOBACCO USE > 1 5 LESS THAN 30 YEARS [facility] Feb 15, 2021 11:30 AM VA-TOBACCO USE ADVICE [facility] Feb 15, 2021 11:30 AM VA-TOBACCO USE PREFABRICATED HOUSES TRIMMER NO [facility] Feb 15, 2021 11:30 AM VA-TOBACCO USE MED NO [facility] Feb 15, 2021 11:30 AM VA-TOBACCO USE WI 30 MIN OF WAKEUP [facility] Feb 15, 2021 11:30 AM VA-TOBACCO USER EVERY DAY [facility] Nov 13, 2018 08:15 AM VA-TOBACCO USE > 1 5 LESS THAN 30 YEARS [facility] Nov 13, 2018 08:15 AM VA-TOBACCO USE ADVICE [facility] Nov 13, 2018 08:15 AM VA-TOBACCO USE PREFABRICATED HOUSES TRIMMER NO [facility] Nov 13, 2018 08:15 AM VA-TOBACCO USE MED NO [facility] Nov 13, 2018 08:15 AM VA-TOBACCO USE WI 30 MIN OF WAKEUP [facility] Nov 13, 2018 08:15 AM VA-TOBACCO USER EVERY DAY [facility] Aug 10, 2010 03:28 PM CURRENT TOBACCO USER [facility] Aug 28, 2007 09:40 AM CURRENT TOBACCO USER cigarettes 1 pack every 2 days [facility] Aug 28, 2007 09:40 AM TOBACCO QUESTIONNA ALTHEA COMPLETED [facility] Jul 16, 2006 11:25 AM CURRENT TOBACCO USER 8-12 cigs daily [facility] Advance Directives: All historical and current Section Date Range: From patient's date of to the date document was created. This section includes ALL of a patient's completed or amended [place] Advance and Rescinded Directives. The entries below indicate that a directive exists for the patient, but an actual copy is not included with this document. The data comes from all [place] facilities. Date Advance Directives Provider Source Jun 13, 2023 ADVANCE DIRECTIVE DISCUSSION VÍCTOR [facility] Jan 16, 2008 ADVANCE DIRECTIVE ROBERTA GARCIA [facility] Jan 16, 2008 ADVANCE DIRECTIVE RALPH DE DIOS [facility] Radiology Reports: +/- 30 days [...] the Encounter. The data comes from all [place] treatment facilities. Date/Time Radiology Report Provider Source Mar 27, 2024 01:23 PM KNEE 4 OR MORE VIE WS (RIGHT): ROSE MARY BURKS KATHY [id number] -1955 M Exm Date: MAR 27, 2024@13:23 Req Phys: HILARIO CABRAL Loc: ADMINISTRATIVE CONTACT (Req'g Img Loc: H-MAIN-X Service: [place] [address] (Case [id number] COMPLETE)KNEE 4 OR MORE VIEWS (RIGHT) (RAD Detailed) CPT:43725 Reason for Study: djd Clinical History: 68 y.o male w/ lumbar and L knee pain, keep falling when walks Report Status: Verified Date Reported: MAR 27, 2024 Date Verified: MAR 27, 2024 Vice President Of Software Development E-Sig: Report: EXAM: KNEE 4 OR MORE [...] space narrowing in the medial compartment with vatw-rm-bnxdphql joint space narrowing in the lateral compartment. Stable exam compared to 2019. [facility] Primary Diagnostic Code: Primary Interpreting Staff: HOUSTON MILLER, RADIOLOGIST Verified by director of culture for HOUSTON MILLER /HOUSTON ANGUIANO [facility] Mar 27, 2024 01:23 PM KNEE 4 OR MORE VIE WS (LEFT): ROSE MARY BURKS [id number] -1955 M Exm Date: MAR 27, 2024@13:23 Req Phys: HILARIO CABRAL Loc: ADMINISTRATIVE CONTACT (Req'g Img Loc: H-MAIN-X Service: [place] [address] (Case [id number] COMPLETE)KNEE 4 OR MORE VIEWS (LEFT) (RAD Detailed) CPT:45978 Reason for Study: djd Clinical History: 68 y.o male w/ lumbar and L knee pain, keep falling when walks Report Status: Verified Date Reported: MAR 27, 2024 Date Verified: MAR 27, 2024 Vice President Of Software Development E-Sig: Report: EXAM: KNEE 4 OR MORE [...] space narrowing in the medial compartment with dpfv-uv-vubnjpvm joint space narrowing in the lateral compartment. Stable exam compared to 2019. [facility] Primary Diagnostic Code: Primary Interpreting Staff: HOUSTON MILLER, RADIOLOGIST Verified by director of culture for HOUSTON MILLER /HOUSTON ANGUIANO [facility] Mar 27, 2024 01:22 PM HIP 2-3 VIEWS (LEF T): ROSE MARY BURKS KATHY [id number] -1955 M Exm Date: MAR 27, 2024@13:22 Req Phys: HILARIO CABRAL Loc: [place] SW PACT GEOTHERMAL FIELD TECHNICIAN 6 (Req'g Loc) Img Loc: H-MAIN-X Service: [place] [address] (Case [id number] COMPLETE)HIP 2-3 VIEWS (LEFT) (RAD Detailed) CPT:22986 Reason for Study: Pain and falls Clinical History: Pain and falls Report Status: Verified Date Reported: MAR 27, 2024 Date Verified: MAR 27, 2024 Vice President Of Software Development E-Sig: Report: EXAM: HIP 2-3 VIEWS (LEFT) [...] Staff: HOUSTON MILLER, RADIOLOGIST Verified by director of culture for HOUSTON MILLER /[facility] ANGUIANO [facility] Mar 27, 2024 12:50 PM LDCT LUNG CANCER S CREENING: BURKSROSE MARY KATHY [id number] -1955 M Exm Date: MAR 27, 2024@12:50 Req Phys: HILARIO CABRAL Pat Loc: [facility] SW PACT GEOTHERMAL FIELD TECHNICIAN 6 (Req'g Loc) Img Loc: [facility]-COMPUTED TOMOGRAPHY-X Service: [place] [address] (Case [id number] COMPLETE)LDCT LUNG CANCER SCREENING (CT Detailed) CPT:25881 Reason for Study: lung cancer screening Clinical History: Vet was on the lung cancer screening , last chest CT WAS 01/02/2023, HE MOVED TO [place], JUST MOVED BACK HERE NOW. Report Status: Verified Date Reported: MAR 28, 2024 Date Verified: MAR 28, 2024 Vice President Of Software Development E-Sig: Report: Clinical Information: 68-year-old male presenting [...] r/o obstruction; Aggressive BP lowering; Referral to bingo usher or preventive sales development representative 1. Di Anguiano, Delroy MAURICE, Conrad Aguirre, [...] Computed Tomography / Society of Thoracic Radiology. [facility] Primary Diagnostic Code: LUNGRADS 2: BENIGN APPEARANCE OR BEHAVIOR Primary Interpreting Staff: ANDREW SAMS MD, RADIOLOGIST Verified by director of culture for ANDREW SAMS MD /ANDREW LIRIANO [facility] Encounter Notes: All associated encounter notes This section contains the clinical notes associated to the Encounter. Date/Time Encounter Note(s) Provider Source Apr 02, 2024 02:08 PM PRIMARY CARE NOTE: LOCAL TITLE: PRIMARY CARE PROGRESS NOTE STANDARD TITLE: PRIMARY CARE NOTE DATE OF NOTE: APR 02, 2024@14:08 ENTRY DATE: APR 02, 2024@14:08:13 AUTHOR: DAY NEGRON COSIGNER: URGENCY: STATUS: COMPLETED Primary Care Clinic Note This 68 year old MALE has an appointment with Primary Care today. CHIEF COMPLAINT:same day clinic SUBJECTIVE: Pt is a 68 yo male with c/o left L/S sciatica pain. Pt with chronic pain for years but states it is getting worse. He states he is not using any OTC ICE/HEAT NSAID for pain, has RX for Gabapentin states does not help. Had hip xray 03/27/24 no acute findings sent to PT has appt today. He has cervical pain and was seen by ORTHO recs for fusion happened during COVID and did not have any f/u after it. REVIEW OF SYSTEMS: General: Negative for fever, chills HEENT: Negative for eye pain, ear pain, sore throat, sneezing Cardiovascular: Negative for chest pain Respiratory: Positive for COPD Negative for dyspnea, cough Gastrointestinal: Positive for constipation / GERD Negative for nausea, vomiting, diarrhea Genitourinary: Negative for dysuria/hematuria Extremities: Positive for left sciatica L/S pain Skin: No skin changes Neuro: Positive for feet/hands tingling ACTIVE MEDICATIONS Active Outpatient Medications (including Supplies): Issue Date Status Last Fill Active Outpatient Medications Refills Expiration 1) AMLODIPINE BESYLATE 5MG TAB Qty: 90 for ACTIVE Issu:03-07-24 90 days Sig: TAKE ONE TABLET BY MOUTH Refills: 3 Last:03-10-24 EVERY DAY FOR HIGH BLOOD PRESSURE Expr:03-08-25 2) CLOPIDOGREL BISULFATE 75MG TAB Qty: 90 ACTIVE Issu:03-07-24 for 90 days Sig: TAKE ONE TABLET BY Refills: 3 Last:03-10-24 MOUTH EVERY MORNING TO PREVENT STROKE Expr:03-08-25 3) ERGOCALCIF 1,250MCG (D2-50,000UNIT) CAP ACTIVE Issu:03-02-24 Qty: 12 for 84 days Sig: TAKE ONE Refills: 1 Last:03-03-24 CAPSULE BY MOUTH EVERY WEEK FOR Expr:03-03-25 VITAMIN D DEFICIENCY 4) ROSUVASTATIN CA 20MG TAB Qty: 90 for 90 ACTIVE Issu:03-02-24 days Sig: TAKE ONE TABLET BY MOUTH Refills: 3 Last:03-03-24 EVERY DAY FOR HIGH CHOLESTEROL Expr:03-03-25 Start Date Active Non-VA Medications Refills Expiration 1) Non-VA FUROSEMIDE 40MG TAB SiMG BY ACTIVE MOUTH EVERY DAY 2) Non-VA GABAPENTIN 300MG CAP SiMG ACTIVE BY MOUTH THREE TIMES A DAY 3) Non-VA POTASSIUM CHLORIDE 10MEQ SA CAP ACTIVE SiMEQ BY MOUTH EVERY DAY 7 Total Medications ALLERGIES BACTRIM OBJECTIVE: Vital Signs DATE/TIME TEMP PULSE RESP BP PAIN WT (LB) P OX 04/02/24 @ 1350 97.6 85 18 134/77 10 98 02/29/24 @ 1300 97.9 92 18 131/84 10 202 97 02/27/24 @ 1919 97.5 109 18 154/110 6 206.6 98 BODY MASS INDEX - 32.6 (FEB 29, 2024@13:00) PHYSICAL EXAM General: sitting in no acute distress, appears stated age HEENT: normocephalic, atraumatic Neck: NTTP Cardio: RRR, no m/r/g Resp: CTAB, normal respiratory effort Abdomen: soft, non-distended, bowel sounds positive, non-tender Skin: warm, dry Musculoskeletal:walks with a limp, TTP left L/S and down buttock to leg +pulses cannot bend forward, rotate or touch toes Neuro: non-focal, alert oriented Psych: appropriate affect, conversational ASSESSMENT AND PLAN: 1)low back/left sciatica pain- pt has PT appt today RX for Tizanidine and Lidocaine gel - advised to ICE if pain/sxs worsen go to the ER no driving while on Tizanidine MEDICATION RECONCILIATION Medication Reconciliation done, reviewed the prescriptions and non-VA meds including over the counter medications with the patient and/or caregiver within the realm of my specialty and pertaining to this encounter. Any discrepancies have been noted and corrected as stated elsewhere in this note. A reconciled medication list was provided to the patient. All questions were answered as well as concerns for side effects/toxicities and when to call me with directions. Time Spent (in minutes): /kallie/ DAY NEGRON PHYSICIAN SHOP STEWARD Signed: 04/02/2024 15:23 DAY NEGRON [facility]
--- OUTSIDE RECORDS SUMMARY | 2024-04-02 11:45 | XMS_ITS | Encounter Summary ---
Author Name [facility] [facility] [place] Address [address] [place] [address] Care Team Providers Care Overnight Houseperson Name Role Phone AMANDEEP PETERS Primary Care [...] PART A May 04, 2019 PART A [id number] BURKS,ALVARO ZHENGONY PATIENT MEDICARE (WNR) MEDICARE (M) PART B May 04, 2019 PART B [id number] BURKS,AN CAT PATIENT MEDICARE (WNR) MEDICARE (M) PART A October 02, 2018 PART A [id number] BURKS,AN CAT PATIENT MEDICARE (WNR) MEDICARE (M) PART B October 02, 2018 PART B [id number] KIMMIE,ALVARO CAT PATIENT Selected Encounter This section includes the information on record at [place] for the Encounter. Date/Time Encounter Type Encounter Description Reason Provider Source Apr 02, 2024 03:45 PM GAIT TRAINING THERAPY PHYSICAL THERAPY ICD-10-CM M13.862 Other specified arthritis, left knee LULUNDSARAH Lewis [facility] Encounter Template Text not used by [place] Assessments - Encounter Diagnoses This section includes the primary and secondary diagnoses documented for the Encounter. Date/Time Primary/Secondary Diagnosis Diagnosis Name Provider Source Apr 02, 2024 04:51 PM PRIMARY Other specified arthritis, left knee LULUNDSARAH Lewis [facility] Apr 02, 2024 04:51 PM SECONDARY [facility] Plan of Treatment: Future Appointments (+ 6 months) and Future Tests (+/- 45 days) The Plan of Treatment section includes future care activities for the patient from all [place] [facility] This section includes future appointments and future orders which are active, pending or scheduled. Future Appointments This section includes appointments that were scheduled to occur 6 months from the date of the Encounter, up to a maximum of 20 appointments. The data comes from all [place] treatment facilities. Appointment Date/Time Appointment Type Appointme nt Facility Name Apr 15, 2024 08:30 AM AMBULATORY - NONE [facility] May 22, 2024 07:30 AM AMBULATORY - NONE [facility] May 22, 2024 10:30 AM AMBULATORY - NONE [facility] Jun 18, 2024 01:00 PM [facility] Jul 05, 2024 06:18 AM [facility] - [facility]IC[facility] Jul 31, 2024 01:30 PM [facility] Aug 06, 2024 04:15 PM AMBULATORY - REHAB MEDICIN E [facility] Aug 08, 2024 01:00 PM AMBULATORY - REHAB MEDICIN E [facility] Aug 12, 2024 10:45 AM AMBULATORY - REHAB MEDICIN E [facility] Aug 19, 2024 10:15 AM AMBULATORY - REHAB MEDICIN E [facility] Aug 21, 2024 01:30 PM AMBULATORY - REHAB MEDICIN E [facility] Aug 26, 2024 10:45 AM AMBULATORY - REHAB MEDICIN E [facility] Aug 28, 2024 09:30 AM AMBULATORY - REHAB MEDICIN E [facility] Aug 29, 2024 10:15 AM AMBULATORY - REHAB MEDICIN E [facility] Sep 02, 2024 01:00 PM [facility] Sep 11, 2024 02:45 PM AMBULATORY - REHAB MEDICIN E [facility] Sep 25, 2024 10:45 AM AMBULATORY - REHAB MEDICIN E [facility] Vital Signs: All taken on the encounter date This section contains inpatient and outpatient Vital Signs collected on the date of the Encounter. Date/Time Temperature Pulse Blood Pressure Respiratory Rate SP02 Pain Height Weight Body Mass Index Source Apr 02, 2024 01:50 PM 97.6 85 134/77 18 98 10 [facility] Social History: Smoking Status (Most current) and Tobacco Use (All prior to encounter date) This section includes the most current, and the historical, smoking and tobacco- related health factors from the [place] facility where the Encounter took place. Current Smoking Status This section includes the most current smoking, or tobacco-related health factor, from the [place] facility where the Encounter took place. Date/Time Current Smoking Status Comment Facil ity Feb 29, 2024 01:30 PM VA-TOBACCO QUIT 15 YRS OR MORE [facility] Tobacco Use History This section includes a history of the smoking, or tobacco-related health factors, that were collected on or before the date of the Encounter. The data comes from the [place] facility where the Encounter took place. Date/Time Smoking Status/Tobacco Use Comment F acility Feb 29, 2024 01:30 PM VA-TOBACCO QUIT 1 TO < 5 YRS [facility] Feb 29, 2024 01:30 PM VA-TOBACCO QUIT 15 YRS OR MORE [facility] Jan 03, 2023 11:30 AM VA-TOBACCO DOESNT USE WI 30 MIN WAKEUP [facility] Jan 03, 2023 11:30 AM VA-TOBACCO USE 30 YEARS OR MORE [facility] Jan 03, 2023 11:30 AM VA-TOBACCO USE ADVICE [facility] Jan 03, 2023 11:30 AM VA-TOBACCO USE NURSE INFORMATICS EDUCATOR NO [facility] Jan 03, 2023 11:30 AM VA-TOBACCO USE MED NO [facility] Jan 03, 2023 11:30 AM VA-TOBACCO USER SOME DAYS [facility] Jan 02, 2022 08:00 AM VA-TOBACCO USE 30 YEARS OR MORE [facility] Jan 02, 2022 08:00 AM VA-TOBACCO USE ADVICE [facility] Jan 02, 2022 08:00 AM VA-TOBACCO USE NURSE INFORMATICS EDUCATOR NO [facility] Jan 02, 2022 08:00 AM VA-TOBACCO USE MED NO [facility] Jan 02, 2022 08:00 AM VA-TOBACCO USE WI 30 MIN OF WAKEUP [facility] Jan 02, 2022 08:00 AM VA-TOBACCO USER EVERY DAY [facility] Feb 15, 2021 11:30 AM VA-TOBACCO USE > 1 5 LESS THAN 30 YEARS [facility] Feb 15, 2021 11:30 AM VA-TOBACCO USE ADVICE [facility] Feb 15, 2021 11:30 AM VA-TOBACCO USE NURSE INFORMATICS EDUCATOR NO [facility] Feb 15, 2021 11:30 AM VA-TOBACCO USE MED NO [facility] Feb 15, 2021 11:30 AM VA-TOBACCO USE WI 30 MIN OF WAKEUP [facility] Feb 15, 2021 11:30 AM VA-TOBACCO USER EVERY DAY [facility] Nov 13, 2018 08:15 AM VA-TOBACCO USE > 1 5 LESS THAN 30 YEARS [facility] Nov 13, 2018 08:15 AM VA-TOBACCO USE ADVICE [facility] Nov 13, 2018 08:15 AM VA-TOBACCO USE NURSE INFORMATICS EDUCATOR NO [facility] Nov 13, 2018 08:15 AM VA-TOBACCO USE MED NO [facility] Nov 13, 2018 08:15 AM VA-TOBACCO USE WI 30 MIN OF WAKEUP [facility] Nov 13, 2018 08:15 AM VA-TOBACCO USER EVERY DAY [facility] Aug 10, 2010 03:28 PM CURRENT TOBACCO USER [facility] Aug 28, 2007 09:40 AM CURRENT TOBACCO USER cigarettes 1 pack every 2 days [facility] Aug 28, 2007 09:40 AM TOBACCO QUESTIONNA ALTHEA COMPLETED [facility] Jul 16, 2006 11:25 AM CURRENT TOBACCO USER 8-12 cigs daily [facility] Advance Directives: All historical and current Section Date Range: From patient's date of to the date document was created. This section includes ALL of a patient's completed or amended [place] Advance and Rescinded Directives. The entries below indicate that a directive exists for the patient, but an actual copy is not included with this document. The data comes from all [place] facilities. Date Advance Directives Provider Source Jun 13, 2023 ADVANCE DIRECTIVE DISCUSSION VÍCTOR HAMPTON [facility] Jan 16, 2008 ADVANCE DIRECTIVE ROBERTA GARCIA [facility] Jan 16, 2008 ADVANCE DIRECTIVE RALPH DE DIOS NIKarey [facility] Radiology Reports: +/- 30 days of [...] the Encounter. The data comes from all [place] treatment facilities. Date/Time Radiology Report Provider Source Mar 27, 2024 01:23 PM KNEE 4 OR MORE VIE WS (LEFT): ROSE MARY BURKS KATHY [id number] -1955 M Exm Date: MAR 27, 2024@13:23 Req Phys: HILARIO CABRAL Loc: ADMINISTRATIVE CONTACT (Req'g Img Loc: H-MAIN-X Service: [place] [address] (Case [id number] COMPLETE)KNEE 4 OR MORE VIEWS (LEFT) (RAD Detailed) CPT:31706 Reason for Study: djd Clinical History: 68 y.o male w/ lumbar and L knee pain, keep falling when walks Report Status: Verified Date Reported: MAR 27, 2024 Date Verified: MAR 27, 2024 Handkerchief Folder E-Sig: Report: EXAM: KNEE 4 OR MORE [...] space narrowing in the medial compartment with qltw-ym-dggrzlmx joint space narrowing in the lateral compartment. Stable exam compared to 2019. [facility] Primary Diagnostic Code: Primary Interpreting Staff: HOUSTON MILLER, RADIOLOGIST Verified by bar machine operator multiple spindle for HOUSOTN MILLER /HOUSTON ANGUIANO [facility] Mar 27, 2024 01:23 PM KNEE 4 OR MORE VIE WS (RIGHT): ROSE MARY BURKS [id number] -1955 M Exm Date: MAR 27, 2024@13:23 Req Phys: HILARIO CABRAL Loc: ADMINISTRATIVE CONTACT (Req'g Img Loc: H-MAIN-X Service: [place] [address] (Case [id number] COMPLETE)KNEE 4 OR MORE VIEWS (RIGHT) (RAD Detailed) CPT:04056 Reason for Study: djd Clinical History: 68 y.o male w/ lumbar and L knee pain, keep falling when walks Report Status: Verified Date Reported: MAR 27, 2024 Date Verified: MAR 27, 2024 Handkerchief Folder E-Sig: Report: EXAM: KNEE 4 OR MORE [...] space narrowing in the medial compartment with elyh-st-tbwjdqge joint space narrowing in the lateral compartment. Stable exam compared to 2019. [facility] Primary Diagnostic Code: Primary Interpreting Staff: HOUSTON MILLER, RADIOLOGIST Verified by bar machine operator multiple spindle for HOUSTON MILLER /HOUSTON ANGUIANO [facility] Mar 27, 2024 01:22 PM HIP 2-3 VIEWS (LEF T): ROSE MARY BURKS KATHY [id number] -1955 M Exm Date: MAR 27, 2024@13:22 Req Phys: HILARIO CABRAL Loc: [facility] SW PACT TONGUER 6 (Req'g Loc) Img Loc: H-MAIN-X Service: [place] [address] (Case [id number] COMPLETE)HIP 2-3 VIEWS (LEFT) (RAD Detailed) CPT:27002 Reason for Study: Pain and falls Clinical History: Pain and falls Report Status: Verified Date Reported: MAR 27, 2024 Date Verified: MAR 27, 2024 Handkerchief Folder E-Sig: Report: EXAM: HIP 2-3 VIEWS (LEFT) [...] Interpreting Staff: HOUSTON MILLER, RADIOLOGIST Verified by bar machine operator multiple spindle for HOUSTON MILLER /HOUSTON ANGUIANO [facility] Mar 27, 2024 12:50 PM LDCT LUNG CANCER S CREENING: ROSE MARY BURKS [id number] -1955 M Exm Date: MAR 27, 2024@12:50 Req Phys: HILARIO CABRAL Pat Loc: [facility] SW PACT TONGUER 6 (Req'g Loc) Img Loc: [facility]-COMPUTED TOMOGRAPHY-X Service: [place] [address] (Case [id number] COMPLETE)LDCT LUNG CANCER SCREENING (CT Detailed) CPT:78427 Reason for Study: lung cancer screening Clinical History: Vet was on the lung cancer screening , last chest CT WAS 01/02/2023, HE MOVED TO [place], JUST MOVED BACK HERE NOW. Report Status: Verified Date Reported: MAR 28, 2024 Date Verified: MAR 28, 2024 Handkerchief Folder E-Sig: Report: Clinical Information: 68-year-old male presenting [...] r/o obstruction; Aggressive BP lowering; Referral to gas appliance mechanic or preventive cyber workforce developer and manager 1. Di Anguiano, Delroy MAURICE, Conrad Aguirre, [...] Computed Tomography / Society of Thoracic Radiology. [facility] Primary Diagnostic Code: LUNGRADS 2: BENIGN APPEARANCE OR BEHAVIOR Primary Interpreting Staff: ANDREW SAMS MD, RADIOLOGIST Verified by bar machine operator multiple spindle for ANDREW SAMS MD /ANDREW LIRIANO [facility] Encounter Notes: All associated encounter notes This section contains the clinical notes associated to the Encounter. Date/Time Encounter Note(s) Provider Source Apr 02, 2024 04:50 PM PHYSICAL THERAPY N OTE: LOCAL TITLE: PHYSICAL THERAPY NOTE STANDARD TITLE: PHYSICAL THERAPY NOTE DATE OF NOTE: APR 02, 2024@16:50 ENTRY DATE: APR 02, 2024@16:50:05 AUTHOR: JASON POTTER EXP COSIGNER: URGENCY: STATUS: COMPLETED Diagnosis(es): Arthritis of left knee (SCT [id number]) - Other specified arthritis, left knee (ICD-10-CM M13.862) (Primary) Other low back pain (ICD-10-CM M54.59) Code(s): 1) 97270 10 mins 2) 85296 10 mins Preferred Language: Chinese SUBJE CTIVE - [place] arrives in DME clinic, confused with his appts, states he is here for PT evalaution for LB and L knee pain. Vet informed that this appt was made for DME. reports requiring to sit due to pain limiting ambulation distance. Vet willing to trail a walker for ambulation. 's Goal: Improve Ambulation PMHx: -Per CPRS Active Problems List OBJEC TIVE - GAIT TRAINING: [place] trialed with [employer] [address]. able to walk 50+ft with device and demonstrated good understanding and safety with this device. instructed in WBAT with this device. ASSE SSMENT - Patient demonstrated verbal and physical understanding of proper gait pattern and safety with assistive device without any safety concerns noted. [place] issed walker at [facility]. PROGNOSIS: Fair/Good based on information provided. GOAL(S): 1 Visit (1) will demonstrate safety and independence with 4WW to negotiate household/community distances safely. (MET) DANIELA N - Frequency/Duration: 1 Evaluation Interventions Planned: Gait Training D/C from OP PT /kallie/ JASON POTTER PHYSICAL THERAPIST Signed: 04/02/2024 16:56 JASON POTTER [facility] Apr 02, 2024 04:04 PM NO SHOW NOTE: LOCAL TITLE: MISSED APPOINTMENT/NO SHOW STANDARD TITLE: NO SHOW NOTE DATE OF NOTE: APR 02, 2024@16:04 ENTRY DATE: APR 02, 2024@16:04:36 AUTHOR: JASON POTTER EXP COSIGNER: URGENCY: STATUS: COMPLETED MISSED APPOINTMENT/NO SHOW Has ADDENDA Missed appointment review: ROSE MARY BURKS did not show for a scheduled appointment. [address] [place], [place] [address] Patient Status: 1st appt missed by patient Clinic: [facility] PT DME /kallie/ JASON POTTER PHYSICAL THERAPIST Signed: 04/02/2024 16:04 04/02/2024 ADDENDUM STATUS: COMPLETED Disregard missed note, was not checked in [facility] PT and was with his provider. /kallie/ JASON POTTER PHYSICAL THERAPIST Signed: 04/02/2024 16:49 JASON POTTER [facility]
--- OUTSIDE RECORDS SUMMARY | 2024-04-03 10:39 | XMS_ITS | Encounter Summary ---
Author Name [facility] [facility] [place] Address [address] [place] [address] Care Team Providers Care Automotive Collision Repair Instructor Name Role Phone AMANDEEP PETERS Primary Care [...] PART A May 04, 2019 PART A [id number] BURKS,AN CAT PATIENT MEDICARE (WNR) MEDICARE (M) PART B May 04, 2019 PART B [id number] BURKS,AN CAT PATIENT MEDICARE (WNR) MEDICARE (M) PART A October 02, 2018 PART A [id number] BURKS,AN CAT PATIENT MEDICARE (WNR) MEDICARE (M) PART B October 02, 2018 PART B [id number] KIMMIE,ALVARO CAT PATIENT Selected Encounter This section includes the information on record at [place] for the Encounter. Date/Time Encounter Type Encounter Description Reason Pro vider Source Apr 03, 2024 02:39 PM Outpatient Encounter COMMUNITY CARE CONSULT IHE Encounter Template Text not used by [facility] Plan of Treatment: Future Appointments (+ 6 months) and Future Tests (+/- 45 days) The Plan of Treatment section includes future care activities for the [facility] [place] [facility] This section includes future appointments and future orders which are active, pending or scheduled. Future Appointments This section includes appointments that were scheduled to occur 6 months from the date of the Encounter, up to a maximum of 20 appointments. The data comes from all [place] treatment facilities. Appointment Date/Time Appointment Type Appointme nt Facility Name Apr 15, 2024 08:30 AM AMBULATORY - NONE [facility] May 22, 2024 07:30 AM AMBULATORY - NONE [facility] May 22, 2024 10:30 AM AMBULATORY - NONE [facility] Jun 18, 2024 01:00 PM AMBULATORY - SURGERY [facility] Jul 05, 2024 06:18 AM AMBULATORY - MEDICINE [facility] Jul 31, 2024 01:30 PM AMBULATORY - SURGERY [facility] Aug 06, 2024 04:15 PM AMBULATORY - REHAB [facility]IN [facility] Aug 08, 2024 01:00 PM AMBULATORY - [facility] Aug 12, 2024 10:45 AM AMBULATORY - REHAB [facility] Aug 19, 2024 10:15 AM AMBULATORY - REHAB [facility] Aug 21, 2024 01:30 PM AMBULATORY - REHAB [facility] Aug 26, 2024 10:45 AM AMBULATORY - REHAB [facility]IN [facility] Aug 28, 2024 09:30 AM AMBULATORY - REHAB [facility]IN [facility] Aug 29, 2024 10:15 AM AMBULATORY - REHAB [facility]IN [facility] Sep 02, 2024 01:00 PM AMBULATORY - SURGERY [facility] Sep 11, 2024 02:45 PM AMBULATORY - REHAB [facility]ICIN [facility] Sep 25, 2024 10:45 AM AMBULATORY - REHAB [facility] Social History: Smoking Status (Most current) and Tobacco Use (All prior to encounter date) This section includes the most current, and the historical, smoking and tobacco- related health factors from the [place] facility where the Encounter took place. Current Smoking Status This section includes the most current smoking, or tobacco-related health factor, from the [place] facility where the Encounter took place. Date/Time Current Smoking Status Comment Bautista ity Jan 04, 2017 03:31 PM CURRENT TOBACCO USER [facility] Tobacco Use History This section includes a history of the smoking, or tobacco-related health factors, that were collected on or before the date of the Encounter. The data comes from the [place] facility where the Encounter took place. Date/Time Smoking Status/Tobacco Use Comment F acility Jan 04, 2017 03:31 PM TOB INFO ON NON-VA STOP SMOKING CLINIC [facility] Jan 04, 2017 03:31 PM TOBACCO OFFERED PT MEDS (PROVIDE R) [facility] May 31, 2011 09:24 AM QUIT TOBACCO IN THE LAST 12 [facility] Advance Directives: All historical and current Section Date Range: From patient's date of to the date document was created. This section includes ALL of a patient's completed or amended [place] Advance and Rescinded Directives. The entries below indicate that a directive exists for the patient, but an actual copy is not included with this document. The data comes from all [facility]. Date Advance Directives Provider Source Jun 13, 2023 ADVANCE DIRECTIVE DISCUSSION VÍCTOR HAMPTON [facility] Jan 16, 2008 ADVANCE DIRECTIVE ROBERTA GARCIA [facility] Jan 16, 2008 ADVANCE DIRECTIVE RALPH DE DIOS [facility] Radiology Reports: +/- 30 days of the [...] the Encounter. The data comes from all [place] treatment facilities. Date/Time Radiology Report Provider Source Mar 27, 2024 01:23 PM KNEE 4 OR MORE VIE WS (LEFT): ROSE MARY BURKS [id number] -1955 M Exm Date: MAR 27, 2024@13:23 Req Phys: HILARIO CABRAL Loc: ADMINISTRATIVE CONTACT (Req'g Img Loc: H-MAIN-X Service: [place] [address] (Case [id number] COMPLETE)KNEE 4 OR MORE VIEWS (LEFT) (RAD Detailed) CPT:05349 Reason for Study: djd Clinical History: 68 y.o male w/ lumbar and L knee pain, keep falling when walks Report Status: Verified Date Reported: MAR 27, 2024 Date Verified: MAR 27, 2024 Wire Bender E-Sig: Report: EXAM: KNEE 4 OR MORE [...] space narrowing in the medial compartment with djfz-ok-utavzvmb joint space narrowing in the lateral compartment. Stable exam compared to 2019. Primary Diagnostic Code: Primary Interpreting Staff: HOUSTON MILLER, RADIOLOGIST Verified by flake cutter operator for HOUSTON MILLER /HOUSTON ANGUIANO [facility] Mar 27, 2024 01:23 PM KNEE 4 OR MORE VIE WS (RIGHT): ROSE MARY BURKS [facility] [id number] [facility]1955 [facility] Date: MAR 27, 2024@13:23 Req Phys: HILARIO CABRAL Pat Loc: ADMINISTRATIVE CONTACT (Req'g Img Loc: H-MAIN-X Service: [place] [address] (Case [id number] COMPLETE)KNEE 4 OR MORE VIEWS (RIGHT) (RAD Detailed) CPT:81840 Reason for Study: djd Clinical History: 68 y.o male w/ lumbar and L knee pain, keep falling when walks Report Status: Verified Date Reported: MAR 27, 2024 Date Verified: MAR 27, 2024 Wire Bender E-Sig: Report: EXAM: KNEE 4 OR MORE [...] space narrowing in the medial compartment with kjfz-qg-nnwcqeiq joint space narrowing in the lateral compartment. Stable exam compared to 2019. Primary Diagnostic Code: Primary Interpreting Staff: HOUSTON MILLER, RADIOLOGIST Verified by flake cutter operator for HOUSTON MILLER /HUOSTON ANGUIANO [facility] Mar 27, 2024 01:22 PM HIP 2-3 VIEWS (LEF T): ROSE MARY BURKS [facility] [id number] -1955 M Exm Date: MAR 27, 2024@13:22 Req Phys: HILARIO CABRAL Pat Loc: [place] SW PACT DIESEL ENGINE OPERATOR 6 (Req'g Loc) Img Loc: H-MAIN-X Service: [place] [address] (Case [id number] COMPLETE)HIP 2-3 VIEWS (LEFT) (RAD Detailed) CPT:34837 Reason for Study: Pain and falls Clinical History: Pain and falls Report Status: Verified Date Reported: MAR 27, 2024 Date Verified: MAR 27, 2024 Wire Bender E-Sig: Report: EXAM: HIP 2-3 VIEWS (LEFT) [...] of osteonecrosis of the left femoral head. [facility] Primary Diagnostic Code: Primary Interpreting Staff: HOUSTON MILLER, RADIOLOGIST Verified by flake cutter operator for HOUSTON ROCKCarla /MIREYA MILLERHOUSTON [facility] Mar 27, 2024 12:50 PM LDCT LUNG CANCER S CREENING: ROSE MARY BURKS [id number] -1955 M Exm Date: MAR 27, 2024@12:50 Req Phys: HILARIO CABRAL Pat Loc: [place] SW PACT DIESEL ENGINE OPERATOR 6 (Req'g Loc) Img Loc: [facility]-COMPUTED TOMOGRAPHY-X Service: Unknown [facility] [address] (Case [id number] COMPLETE)LDCT LUNG CANCER SCREENING (CT Detailed) CPT:80179 Reason for Study: lung cancer screening Clinical History: Vet was on the lung cancer screening , last chest CT WAS 01/02/2023, HE MOVED TO [place], JUST MOVED BACK HERE NOW. Report Status: Verified Date Reported: MAR 28, 2024 Date Verified: MAR 28, 2024 Wire Bender E-Sig: Report: Clinical Information: 68-year-old male presenting [...] r/o obstruction; Aggressive BP lowering; Referral to boiler testing technician or preventive search advertising strategist 1. Di Anguiano, Delroy MAURICE, Conrad Aguirre, [...] Computed Tomography / Society of Thoracic Radiology. [facility] Primary Diagnostic Code: LUNGRADS 2: BENIGN APPEARANCE OR BEHAVIOR Primary Interpreting Staff: ANDREW SAMS MD, RADIOLOGIST Verified by flake cutter operator for ANDREW SAMS MD /ANDREW LIRIANO [facility] Encounter Notes: All associated encounter notes This section contains the clinical notes associated to the Encounter. Date/Time Encounter Note(s) Provider Source Apr 03, 2024 02:39 PM NONVA NOTE: LOCAL TITLE: COMMUNITY CARE-CARE COORDINATION PLAN NOTE STANDARD TITLE: NONVA NOTE DATE OF NOTE: APR 03, 2024@14:39 ENTRY DATE: APR 03, 2024@14:40:36 AUTHOR: DAY LUCIANO COSIGNER: URGENCY: STATUS: COMPLETED SUBJECT: PHYSICAL THERAPY Community Care Consult: PHYSICAL THERAPY Consult No: [id number] [facility] Referral #: [id number] Chief Complaint: Other Chronic Pain(ICD-10-CM G89.29) Reason For Request: -EVALUATE AND TREAT LOW BACK AND LEFT KNEE PAIN SEOC ID: PMR_PHYSICAL THERAPY FOCUSED [id number] FREQUENCY: 06 VISITS DURATION: 90 DAYS Patient Admitted? No Level of Care Coordination Basic Care Coordination was determined from: Chart Review Facility Community Care Office Contact Care Coordination Point of Contact: BRIANNA ROQUE Phone Number: [phone] Services: Navigation Scheduling Post-Appointment Follow-Up E-Communications to referring provider Plan: -assistance with navigation -post appointment follow-up jessica /kallie/ DAY LUCIANO RN RN Signed: 04/03/2024 14:42 DAY LUCIANO [facility]
--- OUTSIDE RECORDS SUMMARY | 2024-05-05 06:38 | XMS_ITS | Encounter Summary ---
Author Name [facility] [place] [facility] [place] Address [address] [place] [address] Care Team Providers Care Core Worker Name Role Phone AMANDEEP PETERS Primary Care [...] PART A May 04, 2019 PART A [id number] BURKS,AN CAT PATIENT MEDICARE (WNR) MEDICARE (M) PART B May 04, 2019 PART B [id number] BURKS,AN CAT PATIENT MEDICARE (WNR) MEDICARE (M) PART A October 02, 2018 PART A [id number] BURKS,AN CAT PATIENT MEDICARE (WNR) MEDICARE (M) PART B October 02, 2018 PART B [id number] KIMMIE,ALVARO CAT PATIENT Selected Encounter This section includes the information on record at [place] for the Encounter. Date/Time Encounter Type Encounter Description Reason Pro vider Source May 05, 2024 10:38 AM Outpatient Encounter COMMUNITY CARE CONSULT IHE Encounter Template Text not used by [place] Plan of Treatment: Future Appointments (+ 6 months) and Future Tests (+/- 45 days) The Plan of Treatment section includes future care activities for the [facility] [place] [facility] This section includes future appointments and future orders which are active, pending or scheduled. Future Appointments This section includes appointments that were scheduled to occur 6 months from the date of the Encounter, up to a maximum of 20 appointments. The data comes from all [place] treatment facilities. Appointment Date/Time Appointment Type Appointme nt Facility Name May 22, 2024 07:30 AM AMBULATORY - NONE [facility] May 22, 2024 10:30 AM AMBULATORY - NONE [facility] Jun 18, 2024 01:00 PM AM[facility]ORY [facility] SURGERY [facility] Jul 05, 2024 06:18 AM [facility] Jul 31, 2024 01:30 PM [facility] SURG[facility] Aug 06, 2024 04:15 PM AMBULATORY [facility] Aug 08, 2024 01:00 PM AMBULATORY - REHAB MEDICIN E [facility] Aug 12, 2024 10:45 AM AMBULATORY - REHAB MEDICIN E [facility] Aug 19, 2024 10:15 AM AMBULATORY - REHAB MEDICIN E [facility] Aug 21, 2024 01:30 PM AMBULATORY - REHAB MEDICIN E [facility] Aug 26, 2024 10:45 AM AMBULATORY - REHAB MEDICIN E [facility] Aug 28, 2024 09:30 AM AMBULATORY - REHAB MEDICIN E [facility] Aug 29, 2024 10:15 AM AMBULATORY - REHAB MEDICIN E [facility] Sep 02, 2024 01:00 PM AMBULATORY - SURGERY [facility] Sep 11, 2024 02:45 PM AMBULATORY - REHAB MEDICIN E [facility] Sep 25, 2024 10:45 AM AMBULATORY - REHAB MEDICIN E [facility] Active, Pending, and Scheduled Orders This section includes a listing of several types of active, pending, and scheduled orders, including clinic medications orders, diagnostic test orders, procedure orders and consult orders; where the start date of the order is 45 days before the date of the Encounter or 45 days after the date of theEncounter. The data comes from all [place] treatment facilities. Test Date/Time Test Type Test Details Facility Name May 31, 2024 12:00 AM Laboratory - Chemi stry Order VITAMIN D (25-OH VITAMIN D) SCREEN LIGHT GREEN (LITHIUM HEPARIN) PLASMA SP ONCE [facility] May 31, 2024 12:00 AM Laboratory - Chemi stry Order COMPREHENSIVE METABOLIC PANEL LIGHT GREEN (LITHIUM HEPARIN) PLASMA SP [facility] May 31, 2024 12:00 AM Laboratory - Chemi stry Order LIPID STUDY (MUST BE FASTING) LIGHT GREEN (LITHIUM HEPARIN) SERUM SP ONCE [facility] Social History: Smoking Status (Most current) and Tobacco Use (All prior to encounter date) This section includes the most current, and the historical, smoking and tobacco- related health factors from the [place] facility where the Encounter took place. Current Smoking Status This section includes the most current smoking, or tobacco-related health factor, from the [place] facility where the Encounter took place. Date/Time Current Smoking Status Comment Bautista ity Jan 04, 2017 03:31 PM CURRENT TOBACCO USER [facility] Tobacco Use History This section includes a history of the smoking, or tobacco-related health factors, that were collected on or before the date of the Encounter. The data comes from the [place] facility where the Encounter took place. Date/Time Smoking Status/Tobacco Use Comment F acility Jan 04, 2017 03:31 PM TOB INFO ON NON-VA STOP SMOKING CLINIC [facility] Jan 04, 2017 03:31 PM TOBACCO OFFERED PT MEDS (PROVIDE R) [facility] May 31, 2011 09:24 AM QUIT TOBACCO IN THE LAST 12 OCTAVIO [facility] Advance Directives: All historical and current Section Date Range: From patient's date of to the date document was created. This section includes ALL of a patient's completed or amended [place] Advance and Rescinded Directives. The entries below indicate that a directive exists for the patient, but an actual copy is not included with this document. The data comes from all [place] facilities. Date Advance Directives Provider Source Jun 13, 2023 ADVANCE DIRECTIVE DISCUSSION VÍCTOR HAMPTON [facility] Jan 16, 2008 ADVANCE DIRECTIVE ROBERTA GARCIA [facility] Jan 16, 2008 ADVANCE DIRECTIVE RALPH DE DIOS [facility] Radiology Reports: +/- 30 days [...] the Encounter. The data comes from all [place] treatment facilities. Date/Time Radiology Report Provider Source May 22, 2024 05:07 AM DEXA FULL STUDY: ROSE MARY BURKS KATHY [id number] -[id number] M Exm Date: MAY 22, 2024@05:07 Req Phys: HILARIO CABRAL Loc: ADMINISTRATIVE CONTACT (Req'g Img Loc: [facility]-COMPUTED RADIOGRAPHY-X Service: [place] [address] (Case [id number] COMPLETE)RADIOLOGY USE ONLYDEXA HIPS,P(RAD Detailed) CPT:51043 Reason for Study: screening for osteoporosis (Case [id number] COMPLETE)RADIOLOGY USE ONLYDEXA PERIPH(RAD Detailed) CPT:81303 Clinical History: Previous Fracture age >50? No (Spine, forearm, upper arm, hip or pelvis only) Hip fracture in a parent? No Current smoker? No Glucocorticoid use >3 months? No (Current daily prednisone use for 3 months or more) Rheumatoid arthritis? No (No other forms of arthritis) Alcohol use 3 drinks or more a day? No Post menopausal? Not applicable Gender: MALE Race: WHITE Height: 66 in [167.6 cm] (02/29/2024 13:00) Weight: 202 lb [91.63 kg] (02/29/2024 13:00) Report Status: Verified Date Reported: MAY 23, 2024 Date Verified: MAY 23, 2024 Caustic Strength Inspector E-Sig: Report: DXA SCAN DXA scan was completed using [employer] system (software version 15 SP2) manufactured by [employer]. The following summarizes the results of our evaluation. Please see scanned images for further data. BMD of L1-L2 is 1.302 g/cm2, T-score 1.1. BMD of the radius 33% is 1.163 g/cm2, T-score 3.3. BMD of the left femoral neck is 0.881 g/cm2, T-score -1.1. BMD of the right femoral neck is 0.937 g/cm2, T-score -0.7. BMD of the left hip is 1.041 g/cm2, T-score 0.3. BMD of the right hip is 1.057 g/cm2, T-score 0.4. BMD of the mean hip is 1.049 g/cm2, T-score 0.3. Impression: Low bone mass FRAX calculation was completed using the information provided in the questionnaire which can be viewed in the scanned images. The 10 year probability for fracture, adjusted for TBS, was calculated with the following results: major osteoporotic fracture 6.1%, hip fracture 1.8%. FRAX calculation was completed based on the following risk(s). This information was provided by the questionnaire which can be viewed in the scanned images. Current smoker TBS: 1.354 TECHNICAL NOTES: Degenerative changes are noted in the lumbar spine which may falsely increase BMD. L-3, L-4 were not used for this interpretation due to significant discrepancy with other vertebra. FOLLOW-UP: Repeat DXA in 2 years. Testing frequency can be increased to one year for patient's who have rapidly progressing disease, those who are receiving or discontinuing medical therapy to restore bone mass, or those who have additional risk factors. Based on these results a follow-up exam is recommended in May,. INFORMATION TO ASSIST INTERPRETATION: BMD = bone mineral density WHO criteria: Normal: T-score at or above -1 SD Low bone mass (Osteopenia): T-score between -1 and -2.5 SD Osteoporosis: T-score at or below -2.5 SD TBS: trabecular bone score Normal >1.31 Partially degraded >1.23 to <1.31 Degraded < 1.23 A FRAX score or a FRAX-TBS score of >20% risk for major osteoporotic fracture or of >3% for hip fractures may warrant consideration of additional pharmacological therapy. This is a guideline only and therapeutic decisions should be decided by the clinical provider. FRAX is appropriate for those aged 40-90 and has not been validated in pre-menopausal females or those who are already receiving pharmacological therapy. [facility] Primary Diagnostic Code: Primary Interpreting Staff: ALANNA FOUNTAIN MD, CCD, STAFF CHIEF CLERK SHELTER Verified by patient case coordinator for ALANNA FOUNTAIN MD, FANNIE /ALANNA RAO [facility] May 22, 2024 05:06 AM MRI KNEE W/O CONTR AST: ROSE MARY BURKS [id number] -[id number] M Exm Date: MAY 22, 2024@05:06 Req Phys: HILARIO CABRAL Loc: ADMINISTRATIVE CONTACT (Req'g Img Loc: MRI-X Service: [place] [address] (Case [id number] COMPLETE)MRI KNEE W/O CONTRAST (MRI Detailed) CPT:54951 Proc Modifiers : LEFT Reason for Study: L knee pain Clinical History: Protocol: KNEE W/O CONTRAST Pertinent patient history: 68 y.o male L knee pain, keep falaling when he walks. Claustrophobia? (If patient requires an OPEN MRI, DO NOT complete this order)No Cardiac Pacemaker/Defibrillator/AICD?No Have you worked with metal/grinding or any history of metal in the eyes?No Possible BB, Bullets, or shrapnel, even if removed?No Aneurysm clip, heart surgery or artificial heart valve?No Cochlear, stapes/middle ear, eye, penile, neurostimulator or any other implants?No PACEMAKER ICD 10 CODES Cohort: There is no indication in the electronic medical record that your [place] has a cardiac implantable electronic device. If this in error and your patient does have a cardiac device, please add it to the Problem List. Surgery in the last 8 weeks? No / Possibility of ? No Allergy to Gadolinium/GBCA?No Consent required for any of the following: Prior allergy to any type contrast, eGFR<40 if order is with contrast, history of Nephrogenic Systemic Fibrosis. No Information above has been reviewed with the [place]. The [place] agrees to have the MRI exam?Yes Report Status: Verified Date Reported: MAY 22, 2024 Date Verified: MAY 22, 2024 Caustic Strength Inspector E-Sig: Report: EXAM: MRI KNEE W/O CONTRAST INDICATION: L knee pain COMPARISON: Left knee x-ray 03/27/2024 TECHNIQUE: MRI dedicated to the left knee was performed on a 1.5 Shirley system using a standard non-contrast protocol. FINDINGS: BONES/JOINT: No acute fracture. Mild bone marrow edema at the outer margins of the medial tibial plateau and medial femoral condyle, findings are nonspecific but likely represent reactive marrow edema. Background marrow signal is normal without infiltrative marrow process. Alignment is anatomic. Moderate joint effusion with mild synovial proliferation. Trace popliteal fossa cyst. LIGAMENTS: ACL and PCL are intact. Remote sprain of the proximal MCL. Lateral collateral ligament complex is intact. MEDIAL COMPARTMENT: Meniscus: Horizontal longitudinal type tear at the posterior horn extending to the junction of the posterior horn and body (series 6 image 22, series 4 image 11) with additional inner margin degenerative fraying. Findings suggestive of a high-grade near full width radial tear of the posterior horn near the posterior root ligament attachment (series 6 image 18, series 3 image 18). Moderate meniscal extrusion. Cartilage: Full thickness cartilage denudation throughout the weightbearing aspects of the compartment. LATERAL COMPARTMENT: Meniscus: Normal in morphology and signal. Cartilage: No focal cartilage defects. PATELLOFEMORAL COMPARTMENT/EXTENSOR MECHANISM: Cartilage: Minimal low-grade cartilage fissuring at the inner margins of the lateral patellar facet. Patellofemoral tracking: Normal tibial tubercle to trochlear groove distance of 7 mm (upper normal range 13-15 mm). Extensor tendons are intact. SOFT TISSUES: Mild soft tissue edema in the midline infrapatellar fat. Normal neurovascular bundle. Impression: 1.Horizontal longitudinal type tear at the posterior horn of the medial meniscus extending to the junction of the posterior horn and body with additional inner margin degenerative fraying. Findings suggestive of a high-grade near full width radial tear of the posterior horn near the posterior root ligament attachment. Moderate meniscal extrusion. 2.Remote sprain the proximal MCL. 3.Medial and minimal patellofemoral compartment chondrosis with extensive cartilage denudation throughout the weightbearing aspects of the medial compartment. 4.Likely reactive bone marrow edema outer margins of the medial tibial plateau and medial femoral condyle. 5.Moderate joint effusion with mild synovial proliferation. 6.Mild soft tissue edema in the midline infrapatellar fat which is nonspecific but can be seen with fat pad impingement syndrome. Correlation with clinical findings is suggested. Primary Diagnostic Code: Primary Interpreting Staff: HOUSTON MILLER, RADIOLOGIST Verified by patient case coordinator for HOUSTON MILLER /MIREYA MILLER,[facility] Encounter Notes: All associated encounter notes This section contains the clinical notes associated to the Encounter. Date/Time Encounter Note(s) Provider Source May 05, 2024 10:38 AM NONVA NOTE: LOCAL TITLE: COMMUNITY CARE-REQUEST FOR SERVICE NOTE STANDARD TITLE: NONVA NOTE DATE OF NOTE: MAY 05, 2024@10:38 ENTRY DATE: MAY 05, 2024@10:38:18 AUTHOR: BRIANNA LYN COSIGNER: URGENCY: STATUS: COMPLETED Request for Services (RFS) documentation has been scanned to [facility] Care Consult: COMMUNITY CARE-PHYSICAL THERAPY Consult No: [id number] Date scanned: May A Request for Service (RFS) form [id number] has been received which includes the following: Care Requested:LOW BACK AND LEFT KNEE PAIN ICD-10 Dx code: ICD-10-CM G89.29 Date [place] received request: Apr Date service required: May Requesting [facility] Provider Information: Name of Ordering Provider: [facility] Physical Thera Address, City, State: [address] [place] [address], [id number] /es/ BRIANNA BURKETT RN [facility] Signed: 05/05/2024 10:41 Receipt Acknowledged By: 05/06/2024 07:42 /es/ TUNG RIDLEY PT, DPT, Mook, DN Cert. PHYSICAL THERAPIST BRIANNA LYN [facility]
--- OUTSIDE RECORDS SUMMARY | 2024-05-05 13:03 | XMS_ITS | Encounter Summary ---
Author Name Department of Vetera Affairs ([place] Organization [place] Address [address] [place] [address] Care Team Providers Care Cable Systems Installer Name Role Phone AMANDEEP PETERS Primary Care [...] PART A May 04, 2019 PART A [id number] [phone] BURKS,AN CAT PATIENT MEDICARE (WNR) MEDICARE (M) PART B May 04, 2019 PART B [id number] BURKS,AN CAT PATIENT MEDICARE (WNR) MEDICARE (M) PART A October 02, 2018 PART A [id number] [phone] BURKS,AN CAT PATIENT MEDICARE (WNR) MEDICARE (M) PART B October 02, 2018 PART B [id number] KIMMIE,ALVARO CAT PATIENT Selected Encounter This section includes the information on record at DC for the Encounter. Date/Time Encounter Type Encounter Description Reason Pro vider Source May 05, 2024 05:03 PM Outpatient Encounter ADMITTING/SCREENING IHE Encounter Template Text not used by DC Plan of Treatment: Future Appointments (+ 6 months) and Future Tests (+/- 45 days) The Plan of Treatment section includes future care activities for the [facility] This section includes future appointments and future orders which are active, pending or scheduled. Future Appointments This section includes appointments that were scheduled to occur 6 months from the date of the Encounter, up to a maximum of 20 appointments. The data comes from all [place] treatment facilities. Appointment Date/Time Appointment Type Appointme nt Facility Name May 22, 2024 07:30 AM [facility] May 22, 2024 10:30 AM AM[facility]ULATORY - NONE [facility] Jun 18, 2024 01:00 PM [facility] Jul 05, 2024 06:18 AM AM[facility] - [facility]ICINE [facility] Jul 31, 2024 01:30 PM [facility] Aug 06, 2024 04:15 PM AMBULATORY - [facility]HAB [facility]ICIN E [facility] Aug 08, 2024 01:00 PM AMBULATORY - REHAB MEDICIN E [facility] Aug 12, 2024 10:45 AM AMBULATORY - REHAB MEDICIN E [facility] Aug 19, 2024 10:15 AM AMBULATORY - REHAB MEDICIN E [facility] Aug 21, 2024 01:30 PM AMBULATORY - REHAB MEDICIN E [facility] Aug 26, 2024 10:45 AM AMBULATORY - REHAB MEDICIN E [facility] Aug 28, 2024 09:30 AM AMBULATORY - REHAB MEDICIN E [facility] Aug 29, 2024 10:15 AM AMBULATORY - REHAB MEDICIN E [facility] Sep 02, 2024 01:00 PM AM[facility]ULATORY - [facility] Sep 11, 2024 02:45 PM AMBULATORY - REHAB MEDICIN E [facility] Sep 25, 2024 10:45 AM AMBULATORY - REHAB MEDICIN E [facility] Active, Pending, and Scheduled Orders This section includes a listing of several types of active, pending, and scheduled orders, including clinic medications orders, diagnostic test orders, procedure orders and consult orders; where the start date of the order is 45 days before the date of the Encounter or 45 days after the date of theEncounter. The data comes from all [place] treatment facilities. Test Date/Time Test Type Test Details Facility Name May 31, 2024 12:00 AM Laboratory - Chemi stry Order VITAMIN D (25-OH VITAMIN D) SCREEN LIGHT GREEN (LITHIUM HEPARIN) PLASMA SP ONCE [facility] May 31, 2024 12:00 AM Laboratory - Chemi stry Order COMPREHENSIVE METABOLIC PANEL LIGHT GREEN (LITHIUM HEPARIN) PLASMA SP [facility] May 31, 2024 12:00 AM Laboratory - Chemi stry Order LIPID STUDY (MUST BE FASTING) LIGHT GREEN (LITHIUM HEPARIN) SERUM SP ONCE [facility] Social History: Smoking Status (Most current) and Tobacco Use (All prior to encounter date) This section includes the most current, and the historical, smoking and tobacco- related health factors from the [place] facility where the Encounter took place. Current Smoking Status This section includes the most current smoking, or tobacco-related health factor, from the [place] facility where the Encounter took place. Date/Time Current Smoking Status Comment Bautista ity Jan 04, 2017 03:31 PM CURRENT TOBACCO USER [facility] Tobacco Use History This section includes a history of the smoking, or tobacco-related health factors, that were collected on or before the date of the Encounter. The data comes from the [place] facility where the Encounter took place. Date/Time Smoking Status/Tobacco Use Comment F acility Jan 04, 2017 03:31 PM TOB INFO ON NON-VA STOP SMOKING CLINIC [facility] Jan 04, 2017 03:31 PM TOBACCO OFFERED PT MEDS (PROVIDE R) [facility] May 31, 2011 09:24 AM QUIT TOBACCO IN THE LAST 12 [facility] Advance Directives: All historical and current Section Date Range: From patient's date of to the date document was created. This section includes ALL of a patient's completed or amended [place] Advance and Rescinded Directives. The entries below indicate that a directive exists for the patient, but an actual copy is not included with this document. The data comes from all [place] facilities. Date Advance Directives Provider Source Jun 13, 2023 ADVANCE DIRECTIVE DISCUSSION VÍCTOR HAMPTON [facility] Jan 16, 2008 ADVANCE DIRECTIVE ROBERTA GARCIA [facility] Jan 16, 2008 ADVANCE DIRECTIVE RALPH DE DIOS [facility] Radiology Reports: +/- 30 days [...] the Encounter. The data comes from all [place] treatment facilities. Date/Time Radiology Report Provider Source May 22, 2024 05:07 AM DEXA FULL STUDY: ROSE MARY BURKS KATHY [id number] -1955 M Exm Date: MAY 22, 2024@05:07 Req Phys: HILARIO CABRAL Loc: ADMINISTRATIVE CONTACT (Req'g Img Loc: PHX-COMPUTED RADIOGRAPHY-X Service: [place] [address] (Case [id number] COMPLETE)RADIOLOGY USE ONLYDEXA HIPS,P(RAD Detailed) CPT:91836 Reason for Study: screening for osteoporosis (Case [id number] COMPLETE)RADIOLOGY USE ONLYDEXA PERIPH(RAD Detailed) CPT:17235 Clinical History: Previous Fracture age >50? No [...] 23, 2024 Date Verified: MAY 23, 2024 Director Internal Control E-Sig: Report: DXA SCAN DXA scan was completed using [employer] system (software version 15 SP2) manufactured by [employer]. The following summarizes the results of our [...] those who are already receiving pharmacological therapy. [facility] Primary Diagnostic Code: Primary Interpreting Staff: ALANNA HARRIS MD, CCD, STAFF CHILD SUPPORT OFFICER Verified by home restoration service supervisor for ALANNA HARRIS MD, FANNIE /ALANNA RAO [facility] May 22, 2024 05:06 AM MRI KNEE W/O CONTR AST: ROSE MARY BURKS [id number] -1955 M Exm Date: MAY 22, 2024@05:06 Req Phys: HILARIO CABRAL Loc: ADMINISTRATIVE CONTACT (Req'g Img Loc: MRI-X Service: Unknown [facility] [address] (Case [id number] COMPLETE)MRI KNEE W/O CONTRAST (MRI Detailed) CPT:99118 Proc Modifiers : LEFT Reason for Study: [...] in the electronic medical record that your [place] has a cardiac implantable electronic device. If [...] Information above has been reviewed with the [place]. The [place] agrees to have the MRI exam?Yes Report Status: Verified Date Reported: MAY 22, 2024 Date Verified: MAY 22, 2024 Director Internal Control E-Sig: Report: EXAM: MRI KNEE W/O CONTRAST [...] Interpreting Staff: HOUSTON MILLER, RADIOLOGIST Verified by home restoration service supervisor for HOUSTON MILLER /HOUSTON ANGIUANO [facility] Encounter Notes: All associated encounter notes This section contains the clinical notes associated to the Encounter. Date/Time Encounter Note(s) Provider Source May 05, 2024 01:05 PM ADMINISTRATIVE NOT E: LOCAL TITLE: ADMINISTRATIVE NOTE STANDARD TITLE: ADMINISTRATIVE NOTE DATE OF NOTE: MAY 05, 2024@13:05:37 ENTRY DATE: MAY 05, 2024@17:03:44 AUTHOR: DARIEN WINN EXP COSIGNER: URGENCY: STATUS: COMPLETED [address] [address] DATE: MAY 05, 2024 ROSE MARY BURKS [address] [facility] [address] [place], [place] [address] DEAR : PLEASE DO THE FOLLOWING: Dear , We have received a request regarding an extension of community care physical therapy. The [facility] Physical Medicine Rehabilitation Services written administrative directive is a set amount of visits per 365 days per body part and/or diagnosis for community care physical therapy. The patient may come to the [facility] or [facility] for a PT evaluation to determine the best plan of care after community care physical therapy has been completed. If additional physical therapy is warranted, the patient may continue his/her physical therapy needs in the [facility] healthcare system. Please contact the Physical Therapy Department, within 90 days, at [phone] Sunday thru Sunday from 7:30am to 4:00pm to schedule your PT evaluation appointment. Please disregard this letter, if you have already scheduled your PT evaluation appointment. And as always, thank you for your time and service. SINCERELY, DARIEN WINN PT, DPT /es/ DARIEN WINN PT, DPT PHYSICAL THERAPIST Signed: 05/05/2024 17:04 DARIEN WINN [facility]
--- OUTSIDE RECORDS SUMMARY | 2024-05-12 02:52 | XMS_ITS | Encounter Summary ---
Author Name Department of Veter[place] Organization [place] Address [address] [place] [address] Care Team Providers Care [place] Tax Assessor Name Role Phone AMANDEEP PETERS Primary Care [...] PART A May 04, 2019 PART A [id number] BURKS,AN CAT PATIENT MEDICARE (WNR) MEDICARE (M) PART B May 04, 2019 PART B [id number] BURKS,AN CAT PATIENT MEDICARE (WNR) MEDICARE (M) PART A October 02, 2018 PART A [id number] BURKS,AN CAT PATIENT MEDICARE (WNR) MEDICARE (M) PART B October 02, 2018 PART B [id number] [phone] KIMMIE,ALVARO CAT PATIENT Selected Encounter This section includes the information on record at [place] for the Encounter. Date/Time Encounter Type Encounter Description Reason Pro vider Source May 12, 2024 06:52 AM Outpatient Encounter COMMUNITY CARE CONSULT IHE Encounter Template Text not used by [place] Plan of Treatment: Future Appointments (+ 6 months) and Future Tests (+/- 45 days) The Plan of Treatment section includes future care activities for the patient from all [place] [facility]. This section includes future appointments and future orders which are active, pending or scheduled. Future Appointments This section includes appointments that were scheduled to occur 6 months from the date of the Encounter, up to a maximum of 20 appointments. The data comes from all [place] treatment facilities. Appointment Date/Time Appointment Type Appointme nt Facility Name May 22, 2024 07:30 AM AMBULATORY - NONE [facility] May 22, 2024 10:30 AM AMBULATORY - NONE [facility] Jun 18, 2024 01:00 PM AM[facility]UL[facility]ORY - SURGERY [facility] Jul 05, 2024 06:18 AM AMBULATORY - MEDICINE [facility] Jul 31, 2024 01:30 PM AMBULATORY - SURGERY [facility] Aug 06, 2024 04:15 PM AMBULATORY - [facility] Aug 08, 2024 01:00 PM AMBULATORY - REHAB MEDICIN E [facility] Aug 12, 2024 10:45 AM AMBULATORY - REHAB MEDICIN E [facility] Aug 19, 2024 10:15 AM AMBULATORY - REHAB MEDICIN E [facility] Aug 21, 2024 01:30 PM AMBULATORY - REHAB MEDICIN E [facility] Aug 26, 2024 10:45 AM AMBULATORY - REHAB MEDICIN E [facility] Aug 28, 2024 09:30 AM AMBULATORY - REHAB MEDICIN E [facility] Aug 29, 2024 10:15 AM AMBULATORY - REHAB MEDICIN E [facility] Sep 02, 2024 01:00 PM AMBULATORY - SURGERY [facility] Sep 11, 2024 02:45 PM AMBULATORY - REHAB MEDICIN E [facility] Sep 25, 2024 10:45 AM AMBULATORY - REHAB MEDICIN E [facility] Active, Pending, and Scheduled Orders This section includes a listing of several types of active, pending, and scheduled orders, including clinic medications orders, diagnostic test orders, procedure orders and consult orders; where the start date of the order is 45 days before the date of the Encounter or 45 days after the date of theEncounter. The data comes from all [place] treatment facilities. Test Date/Time Test Type Test Details Facility Name May 31, 2024 12:00 AM Laboratory - Chemi stry Order VITAMIN D (25-OH VITAMIN D) SCREEN LIGHT GREEN (LITHIUM HEPARIN) PLASMA SP ONCE [facility] May 31, 2024 12:00 AM Laboratory - Chemi stry Order COMPREHENSIVE METABOLIC PANEL LIGHT GREEN (LITHIUM HEPARIN) PLASMA SP [facility] May 31, 2024 12:00 AM Laboratory - Chemi stry Order LIPID STUDY (MUST BE FASTING) LIGHT GREEN (LITHIUM HEPARIN) SERUM SP ONCE [facility] Social History: Smoking Status (Most current) [...] 04, 2017 03:31 PM CURRENT TOBACCO USER [facility] Tobacco Use History This section includes a history of the smoking, or tobacco-related health factors, that were collected on or before the date of the Encounter. The data comes from the [place] facility where the Encounter took place. Date/Time Smoking Status/Tobacco Use Comment F acility Jan 04, 2017 03:31 PM TOB INFO ON NON-VA STOP SMOKING CLINIC [facility] Jan 04, 2017 03:31 PM TOBACCO OFFERED PT MEDS (PROVIDE R) [facility] May 31, 2011 09:24 AM QUIT TOBACCO IN THE LAST 12 [facility] Advance Directives: All historical and current [...] 13, 2023 ADVANCE DIRECTIVE DISCUSSION VÍCTOR HAMPTON [facility] Jan 16, 2008 ADVANCE DIRECTIVE ROBERTA GARCIA [facility] Jan 16, 2008 ADVANCE DIRECTIVE RALPH DE DIOS [facility] Radiology Reports: +/- 30 days of the [...] DEXA FULL STUDY: ROSE MARY BURKS KATHY [id number] -1955 M Exm Date: MAY 22, 2024@05:07 Req Phys: HILARIO CABRAL Loc: ADMINISTRATIVE CONTACT (Req'g Img Loc: PHX-COMPUTED RADIOGRAPHY-X Service: [place] [address] (Case [id number] COMPLETE)RADIOLOGY USE ONLYDEXA HIPS,P(RAD Detailed) CPT:47294 Reason for Study: screening for osteoporosis (Case [id number] COMPLETE)RADIOLOGY USE ONLYDEXA PERIPH(RAD Detailed) CPT:55117 Clinical History: Previous Fracture age >50? No [...] 23, 2024 Date Verified: MAY 23, 2024 Esthetician/Spa Coordinator E-Sig: Report: DXA SCAN DXA scan was completed using [employer] system (software version 15 SP2) manufactured by [employer]. The following summarizes the results of our [...] those who are already receiving pharmacological therapy. [facility] Primary Diagnostic Code: Primary Interpreting Staff: ALANNA FOUNTAIN MD, CCD, STAFF ECONOMETRICS PROFESSOR Verified by outside energy sales representatives for ALANNA FOUNTAIN MD, FANNIE /ALANNA RAO [facility] May 22, 2024 05:06 AM MRI KNEE W/O CONTR AST: ROSE MARY BURKS [id number] -1955 M Exm Date: MAY 22, 2024@05:06 Req Phys: HILARIO CABRAL Loc: ADMINISTRATIVE CONTACT (Req'g Img Loc: MRI-X Service: Unknown [place] [address] (Case [id number] COMPLETE)MRI KNEE W/O CONTRAST (MRI Detailed) CPT:93802 Proc Modifiers : LEFT Reason for Study: [...] in the electronic medical record that your [place] has a cardiac implantable electronic device. If [...] Information above has been reviewed with the [place]. The [place] agrees to have the MRI exam?Yes Report Status: Verified Date Reported: MAY 22, 2024 Date Verified: MAY 22, 2024 Esthetician/Spa Coordinator E-Sig: Report: EXAM: MRI KNEE W/O CONTRAST [...] Interpreting Staff: HOUSTON MILLER, RADIOLOGIST Verified by outside energy sales representatives for HOUSTON MILLER /HOUSTON ANGUIANO [facility] Encounter Notes: All associated encounter notes This section contains the clinical notes associated to the Encounter. Date/Time Encounter Note(s) Provider Source May 12, 2024 06:52 AM LETTERS: LOCAL TITLE: COMMUNITY CARE-REQUEST FOR SERVICES (RFS) LETTER STANDARD TITLE: LETTERS DATE OF NOTE: MAY 12, 2024@06:52 ENTRY DATE: MAY 12, 2024@06:52:53 AUTHOR: YOMAIRA LYN EXP COSIGNER: URGENCY: STATUS: COMPLETED [facility] [address] [facility], [address] Dear Provider, [place] Information: Patient Name: ROSE MARY BURKS Date of : October The [facility] has received the request continued physical therapy from you for services that were not originally authorized in the [employer] for this [place]. Upon review, the following determination has been made: Service has been denied: Care has been deemed clinically inappropriate. Reason: Authorization Denied for extension. Patient is independent with HEP. Recommend continue with HEP learned 3-5x/week for 3-5 months. Next Steps: To request further physical therapy, the would be required an evaluation from the [facility] PT Department and or [place] PT CBOC's to determine best plan of care. Patient will need to contact primary care provider for Physical Therapy Consult. Please inform of continued care determination Should you have questions, please contact us at [phone] to speak with a patient dispatcher service or work. As a reminder, if applicable, return medical records within 30 days for routine services. Sincerely, Yomaira Lyn BSN RN [facility] [phone] YOMAIRA LYN [facility]
--- OUTSIDE RECORDS SUMMARY | 2024-05-15 13:06 | XMS_ITS | Encounter Summary ---
Author Name [facility] [place] Organization [place] Address [address] [place] [address] Care Team Providers Care Real Estate Instructor Name Role Phone AMANDEEP PETERS Primary [...] PART A May 04, 2019 PART A [id number] BURKS,AN CAT PATIENT MEDICARE (WNR) MEDICARE (M) PART B May 04, 2019 PART B [id number] BURKS,AN CAT PATIENT MEDICARE (WNR) MEDICARE (M) PART A October 02, 2018 PART A [id number] [phone] BURKS,AN CAT PATIENT MEDICARE (WNR) MEDICARE (M) PART B October 02, 2018 PART B [id number] KIMMIE,ALVARO CAT PATIENT Selected Encounter This section includes the information on record at CT for the Encounter. Date/Time Encounter Type Encounter Description Reason Pro vider Source May 15, 2024 05:06 PM Outpatient Encounter COMMUNITY CARE CONSULT IHE Encounter Template Text not used by CT Plan of Treatment: Future Appointments (+ 6 months) and Future Tests (+/- 45 days) The Plan of Treatment section includes future care activities for the patient [facility] This section includes future appointments and future orders which are active, pending or scheduled. Future Appointments This section includes appointments that were scheduled to occur 6 months from the date of the Encounter, up to a maximum of 20 appointments. The data comes from all CT treatment facilities. Appointment Date/Time Appointment Type Appointme nt Facility Name May 22, 2024 07:30 AM AMBULATORY - NONE [facility] May 22, 2024 10:30 AM AMBULATORY - NONE [facility] Jun 18, 2024 01:00 PM [facility] Jul 05, 2024 06:18 AM [facility] - [facility]INE [facility] Jul 31, 2024 01:30 PM [facility] Aug 06, 2024 04:15 PM AMBULATORY - REHAB [facility] Aug 08, 2024 01:00 PM AMBULATORY - REHAB MEDICIN E [facility] Aug 12, 2024 10:45 AM AMBULATORY - REHAB MEDICIN E [facility] Aug 19, 2024 10:15 AM AMBULATORY - REHAB MEDICIN E [facility] Aug 21, 2024 01:30 PM AMBULATORY - REHAB MEDICIN E [facility] Aug 26, 2024 10:45 AM AMBULATORY - REHAB MEDICIN E [facility] Aug 28, 2024 09:30 AM AMBULATORY - REHAB MEDICIN E [facility] Aug 29, 2024 10:15 AM AMBULATORY - REHAB MEDICIN E [facility] Sep 02, 2024 01:00 PM [facility] Sep 11, 2024 02:45 PM AMBULATORY - REHAB MEDICIN E [facility] Sep 25, 2024 10:45 AM AMBULATORY - REHAB MEDICIN E [facility] Active, Pending, and Scheduled Orders This section includes a listing of several types of active, pending, and scheduled orders, including clinic medications orders, diagnostic test orders, procedure orders and consult orders; where the start date of the order is 45 days before the date of the Encounter or 45 days after the date of theEncounter. The data comes from all CT treatment facilities. Test Date/Time Test Type Test Details Facility Name May 31, 2024 12:00 AM Laboratory - Chemi stry Order VITAMIN D (25-OH VITAMIN D) SCREEN LIGHT GREEN (LITHIUM HEPARIN) PLASMA SP ONCE [facility] May 31, 2024 12:00 AM Laboratory - Chemi stry Order COMPREHENSIVE METABOLIC PANEL LIGHT GREEN (LITHIUM HEPARIN) PLASMA SP [facility] May 31, 2024 12:00 AM Laboratory - Chemi stry Order LIPID STUDY (MUST BE FASTING) LIGHT GREEN (LITHIUM HEPARIN) SERUM SP ONCE [facility] Social History: Smoking Status (Most current) and Tobacco Use (All prior to encounter date) This section includes the most current, and the historical, smoking and tobacco- related health factors from the CT facility where the Encounter took place. Current Smoking Status This section includes the most current smoking, or tobacco-related health factor, from the CT facility where the Encounter took place. Date/Time Current Smoking Status Comment Bautista ity Jan 04, 2017 03:31 PM CURRENT TOBACCO USER [facility] Tobacco Use History This section includes a history of the smoking, or tobacco-related health factors, that were collected on or before the date of the Encounter. The data comes from the CT facility where the Encounter took place. Date/Time Smoking Status/Tobacco Use Comment F acility Jan 04, 2017 03:31 PM TOB INFO ON NON-VA STOP SMOKING CLINIC [facility] Jan 04, 2017 03:31 PM TOBACCO OFFERED PT MEDS (PROVIDE R) [facility] May 31, 2011 09:24 AM QUIT TOBACCO IN THE LAST 12 [facility] Advance Directives: All historical and current Section Date Range: From patient's date of to the date document was created. This section includes ALL of a patient's completed or amended CT Advance and Rescinded Directives. The entries below indicate that a directive exists for the patient, but an actual copy is not included with this document. The data comes from all CT facilities. Date Advance Directives Provider Source Jun 13, 2023 ADVANCE DIRECTIVE DISCUSSION VÍCTOR HAMPTON [facility] Jan 16, 2008 ADVANCE DIRECTIVE ROBERTA GARCIA [facility] Jan 16, 2008 ADVANCE DIRECTIVE [facility]PH DE [facility] Radiology Reports: +/- 30 days [...] the Encounter. The data comes from all CT treatment facilities. Date/Time Radiology Report Provider Source May 22, 2024 05:07 AM DEXA FULL STUDY: ROSE MARY BURKS KATHY [id number] -1955 M Exm Date: MAY 22, 2024@05:07 Req Phys: HILARIO CABRAL Loc: ADMINISTRATIVE CONTACT (Req'g Img Loc: PHX-COMPUTED RADIOGRAPHY-X Service: [place] [address] (Case [id number] COMPLETE)RADIOLOGY USE ONLYDEXA HIPS,P(RAD Detailed) CPT:23315 Reason for Study: screening for osteoporosis (Case [id number] COMPLETE)RADIOLOGY USE ONLYDEXA PERIPH(RAD Detailed) CPT:75078 Clinical History: Previous Fracture age >50? No [...] 23, 2024 Date Verified: MAY 23, 2024 Strategic Marketing Leader E-Sig: Report: DXA SCAN DXA scan was completed using Pruffi system (software version 15 SP2) manufactured by [employer]. The following summarizes the results of our [...] those who are already receiving pharmacological therapy. [facility] Primary Diagnostic Code: Primary Interpreting Staff: ALANNA FOUNTAIN MD, CCD, STAFF WHEELAGE CLERK Verified by circus roustabout for ALANNA FOUNTAIN MD, FANNIE /ALANNA RAO [facility] May 22, 2024 05:06 AM MRI KNEE W/O CONTR AST: ROSE MARY BURKS [id number] -1955 M Exm Date: MAY 22, 2024@05:06 Req Phys: HILARIO CABRAL Loc: ADMINISTRATIVE CONTACT (Req'g Img Loc: MRI-X Service: [place] [facility] [place] [address] (Case [id number] COMPLETE)MRI KNEE W/O CONTRAST (MRI Detailed) CPT:96601 Proc Modifiers : LEFT Reason for Study: [...] in the electronic medical record that your [facility] has a cardiac implantable electronic device. If [...] Information above has been reviewed with the [place]. The [facility] agrees to have the MRI exam?Yes Report Status: Verified Date Reported: MAY 22, 2024 Date Verified: MAY 22, 2024 Strategic Marketing Leader E-Sig: Report: EXAM: MRI KNEE W/O CONTRAST [...] Interpreting Staff: HOUSTON MILLER, RADIOLOGIST Verified by circus roustabout for HOUSTON MILLER /MIREYA MILLER,HOUSTON SEN [facility] Encounter Notes: All associated encounter notes This section contains the clinical notes associated to the Encounter. Date/Time Encounter Note(s) Provider Source May 15, 2024 05:06 PM NONVA CONSULT: LOCAL TITLE: COMMUNITY CARE CONSULT RESULT NOTE STANDARD TITLE: NONVA CONSULT DATE OF NOTE: MAY 15, 2024@17:06 ENTRY DATE: MAY 15, 2024@17:06:18 AUTHOR: DAY LUCIANO COSIGNER: URGENCY: STATUS: COMPLETED The following Non VA Care consult has been completed. See scanned document for report. ADDED COMMENT 05/05/24 10:37 BRIANNA LYN SUSAN R RFS-Request for Service 1 CPD-RFS date submitted by community provider: 04/25/2024 DILLAN-NOAH/RFS Urgency: Within 48 hours RRD-RFS details of what was requested: 1 - URGENT REQUESTING REVIEW FOR APPROVAL OR DENIAL FROM PT DOA Community Provider please send ALL RECORDS and RFS to the following CT Fax#: [facility] FAX: [phone] [facility] REQUEST FOR SERVICE FAX: [phone] PROVIDER REQUESTING EXTENSION WITH ADDITIONAL SERVICES FOR: SPECIALTY: PHYSICAL THERAPY EVALUATION AND TREATMENT LOW BACK AND LEFT KNEE PAIN DX: Other Chronic Pain(ICD-10-CM G89.29) CONTINUED CARE: [facility] [address] [facility], [address] P: [phone] F: [phone] PHYSICAL/OCCUPATIONAL THERAPY consults: Brendan Reed (Ext: [phone]), Sanford Bryant (Ext: [phone]), E-K Perez Hernandez (Ext: [phone]), L-Q Hosea Krishnan (Ext: [phone]), R-Z FOR OCCUPATIONAL THERAPY, Massage Therapy, Speech Pathology, JESUS Erazo (Ext: [phone]) *IF APPROVED, A NEW CT PT CSULT OR NEW CC OT CONSULT REQUIRED RRD Diagnosis: Other Chronic Pain ICD-10-CM: G89.29 SDR-RFS Sent for DOA Review: 05/05/2024 HAND I BLOCKER-Is Community Provider Order applicable for this referral: No RFS CUR-CTB User Role: RN COMPLETE/UPDATE 05/05/24 10:49 BRIANNA LYN,BRIANNA WANG-Administratively closed without records Administratively complete without records follow-up (low-risk consult): Low Risk Consult - Facility community care staff have received confirmation that the has attended the initial visit. One attempt has been made to obtain medical records without timely response from the community provider. This consult is being administratively completed per the guidance in the Office of Community Care Field Guidebook. CUR-CTB User Role: RN ADDED COMMENT 05/05/24 17:04 DARIEN WINN JESSICA L RFS-Request for Service 1 CPD-RFS date submitted by community provider: 04/25/2024 DILLAN-NOAH/RFS Urgency: Within 48 hours RRD-RFS details of what was requested: 1 - URGENT REQUESTING REVIEW FOR APPROVAL OR DENIAL FROM PT DOA Community Provider please send ALL RECORDS and RFS to the following CT Fax#: [facility] FAX: [phone] [facility] REQUEST FOR SERVICE FAX: [phone] PROVIDER REQUESTING EXTENSION WITH ADDITIONAL SERVICES FOR: SPECIALTY: PHYSICAL THERAPY EVALUATION AND TREATMENT LOW BACK AND LEFT KNEE PAIN DX: Other Chronic Pain(ICD-10-CM G89.29) CONTINUED CARE: [facility] [address], [address] P: [phone] F: [phone] PHYSICAL/OCCUPATIONAL THERAPY consults: Brendan Reed (Ext: [phone]), Sanford Bryant (Ext: [phone]), ERianna Hernandez (Ext: [phone]), LFzoia Krishnan (Ext: [phone]), R-Z FOR OCCUPATIONAL THERAPY, Massage Therapy, Speech Pathology, JESUS Erazo (Ext: [phone]) *IF APPROVED, A NEW CT PT CSULT OR NEW CC OT CONSULT REQUIRED RRD Diagnosis: Other Chronic Pain ICD-10-CM: G89.29 SDR-RFS Sent for DOA Review: 05/05/2024 DDD-RFS DOA Decision Date 05/05/2024 RRM-RFS Clinical Review Method: Provider Review HAND I BLOCKER-Is Community Provider Order applicable for this referral: No NIYAH-RFS supporting documentation reviewed RSD-RFS Disapproved: Other Upon review, the following determination has been made: Request has been denied. Reason: Patient is independent with HEP. Recommend continue with HEP learned 3-5x/week for 3-5 months. Next Steps: To request further physical therapy, the would be required an evaluation from the [facility] PT Department and or CT PT CBOC's to determine best plan of care. Advise the patient to contact their primary care physician to request a VA PT re-evaluation consult. RSD RFS RCT-Referral Coordination Real Estate Instructor MORENA User Role: Provider ADDED COMMENT 05/12/24 06:52 BRIANNA LYN,BRIANNA PANCHAL-Request for Service 1 CPD-RFS date submitted by community provider: 04/25/2024 DILLAN-NOAH/RFS Urgency: Within 48 hours RRD-RFS details of what was requested: 1 - URGENT REQUESTING REVIEW FOR APPROVAL OR DENIAL FROM PT DOA Community Provider please send ALL RECORDS and RFS to the following CT Fax#: [facility] FAX: [phone] [facility] REQUEST FOR SERVICE FAX: [phone] PROVIDER REQUESTING EXTENSION WITH ADDITIONAL SERVICES FOR: SPECIALTY: PHYSICAL THERAPY EVALUATION AND TREATMENT LOW BACK AND LEFT KNEE PAIN DX: Other Chronic Pain(ICD-10-CM G89.29) CONTINUED CARE: [facility] [address] [facility], [address] P: [phone] F: [phone] PHYSICAL/OCCUPATIONAL THERAPY consults: Brendan Reed (Ext: [phone]), Sanford Bryant (Ext: [phone]), ERianna Hernandez (Ext: [phone]), LDarcyQ Hosea Krishnan (Ext: [phone]), R-Z FOR OCCUPATIONAL THERAPY, Massage Therapy, Speech Pathology, JESUS Erazo (Ext: [phone]) *IF APPROVED, A NEW VA PT CSULT OR NEW CC OT CONSULT REQUIRED RRD Diagnosis: Other Chronic Pain ICD-10-CM: G89.29 SDR-RFS Sent for DOA Review: 05/05/2024 DDD-RFS DOA Decision Date 05/05/2024 RRM-RFS Clinical Review Method: Provider Review HAND I BLOCKER-Is Community Provider Order applicable for this referral: No NIYAH-RFS supporting documentation reviewed RSD-RFS Disapproved: Other Upon review, the following determination has been made: Request has been denied. Reason: Patient is independent with HEP. Recommend continue with HEP learned 3-5x/week for 3-5 months. Next Steps: To request further physical therapy, the would be required an evaluation from the [facility] PT Department and or CT PT CBOC's to determine best plan of care. Advise the patient to contact their primary care physician to request a VA PT re-evaluation consult. RSD NRL-RFS decision sent to and CC provider 05/09/2024 RFS [facility] User Role: MIREYA /kallie/ DAY LUCIANO RN RN Signed: 05/15/2024 17:06 DAY LUCIANO [facility]
--- OUTSIDE RECORDS SUMMARY | 2024-05-22 06:30 | XMS_ITS | Encounter Summary ---
Author Name Department [place] Address [address] [place] [address] Care Team Providers Care Addictions Counselor Assistant Name Role Phone AMANDEEP PETERS Primary Care [...] PART A May 04, 2019 PART A [id number] KIMMIE,ALVARO SHELTON PATIENT MEDICARE (WNR) MEDICARE (M) PART B May 04, 2019 PART B [id number] BURKS,AN CAT PATIENT MEDICARE (WNR) MEDICARE (M) PART A October 02, 2018 PART A [id number] BURKS,ALVARO ZHENGONY PATIENT MEDICARE (WNR) MEDICARE (M) PART B October 02, 2018 PART B [id number] KIMMIE,ALVARO SHELTON PATIENT Selected Encounter This section includes the information on record at [place] for the Encounter. Date/Time Encounter Type Encounter Description Reason Pro vider Source May 22, 2024 10:30 AM Outpatient Encounter ADMIN PAT ACTIVTIES (MASNONCT) IHE Encounter Template Text not used by [place] Plan of Treatment: Future Appointments (+ 6 months) and Future Tests (+/- 45 days) The Plan of Treatment section includes future care activities for the patient from [facility] [place] [facility] This section includes future appointments and future orders which are active, pending or scheduled. Future Appointments This section includes appointments that were scheduled to occur 6 months from the date of the Encounter, up to a maximum of 20 appointments. The data comes from all [facility]. Appointment Date/Time Appointment Type Appointme nt Facility Name Jun 18, 2024 01:00 PM AMBULATORY - [facility]GERY [facility] Jul 05, 2024 06:18 AM [facility] - [facility]IC[facility] Jul 31, 2024 01:30 PM AMBULATORY - SURGERY [facility] Aug 06, 2024 04:15 PM AMBULATORY - REHAB MEDICIN E [facility] Aug 08, 2024 01:00 PM AMBULATORY - RE[facility]ICIN [facility] Aug 12, 2024 10:45 AM AMBULATORY - REHAB MEDICIN [facility] Aug 19, 2024 10:15 AM AMBULATORY - REHAB MEDICIN E [facility] Aug 21, 2024 01:30 PM AMBULATORY - REHAB MEDICIN [facility] Aug 26, 2024 10:45 AM AMBULATORY - REHAB MEDICIN [facility] Aug 28, 2024 09:30 AM AMBULATORY - REHAB MEDICIN E [facility] Aug 29, 2024 10:15 AM AMBULATORY - REHAB MEDICIN [facility] Sep 02, 2024 01:00 PM [facility]GERY [facility] Sep 11, 2024 02:45 PM AMBULATORY - REHAB MEDICIN E [facility] Sep 25, 2024 10:45 AM AMBULATORY - REHAB MEDICIN E [facility] Active, Pending, and Scheduled Orders This section includes a listing of several types of active, pending, and scheduled orders, including clinic medications orders, diagnostic test orders, procedure orders and consult orders; where the start date of the order is 45 days before the date of the Encounter or 45 days after the date of theEncounter. The data comes from all [facility]. Test Date/Time Test Type Test Details Facility Name May 31, 2024 12:00 AM Laboratory - Chemi stry Order VITAMIN D (25-OH VITAMIN D) SCREEN LIGHT GREEN (LITHIUM HEPARIN) PLASMA SP ONCE [facility] May 31, 2024 12:00 AM Laboratory - Chemi stry Order COMPREHENSIVE METABOLIC PANEL LIGHT GREEN (LITHIUM HEPARIN) PLASMA SP [facility] May 31, 2024 12:00 AM Laboratory - Chemi stry Order LIPID STUDY (MUST BE FASTING) LIGHT GREEN (LITHIUM HEPARIN) SERUM SP ONCE [facility] Social History: Smoking Status (Most current) and Tobacco Use (All prior to encounter date) This section includes the most current, and the historical, smoking and tobacco- related health factors from the [place] facility where the Encounter took place. Current Smoking Status This section includes the most current smoking, or tobacco-related health factor, from the [place] facility where the Encounter took place. Date/Time Current Smoking Status Comment Facil ity Jan 04, 2017 03:31 PM CURRENT TOBACCO USER [facility] Tobacco Use History This section includes a history of the smoking, or tobacco-related health factors, that were collected on or before the date of the Encounter. The data comes from the [place] facility where the Encounter took place. Date/Time Smoking Status/Tobacco Use Comment F acility Jan 04, 2017 03:31 PM TOB INFO ON NON-VA STOP SMOKING CLINIC [facility] Jan 04, 2017 03:31 PM TOBACCO OFFERED PT MEDS (PROVIDE R) [facility] May 31, 2011 09:24 AM QUIT TOBACCO IN THE LAST 12 [facility] Advance Directives: All historical and current Section Date Range: From patient's date of to the date document was created. This section includes ALL of a patient's completed or amended [place] Advance and Rescinded Directives. The entries below indicate that a directive exists for the patient, but an actual copy is not included with this document. The data comes from all [place] facilities. Date Advance Directives Provider Source Jun 13, 2023 ADVANCE DIRECTIVE DISCUSSION VÍCTOR HAMPTON [facility] Jan 16, 2008 ADVANCE DIRECTIVE ROBERTA GARCIA [facility] Jan 16, 2008 ADVANCE DIRECTIVE RALPH DE DIOS [facility] Radiology Reports: +/- 30 days [...] the Encounter. The data comes from all [place] treatment facilities. Date/Time Radiology Report Provider Source May 22, 2024 05:07 AM DEXA FULL STUDY: ROSE MARY BURKS [id number] -1955 M Exm Date: MAY 22, 2024@05:07 Req Phys: HILARIO CABRAL Loc: ADMINISTRATIVE CONTACT (Req'g Img Loc: PHX-COMPUTED RADIOGRAPHY-X Service: [place] [address] (Case [id number] COMPLETE)RADIOLOGY USE ONLYDEXA HIPS,P(RAD Detailed) CPT:31070 Reason for Study: screening for osteoporosis (Case [id number] COMPLETE)RADIOLOGY USE ONLYDEXA PERIPH(RAD Detailed) CPT:57430 Clinical History: Previous Fracture age >50? No [...] 23, 2024 Date Verified: MAY 23, 2024 Armhole Baster Jumpbasting E-Sig: Report: DXA SCAN DXA scan was completed using [employer] system (software version 15 SP2) manufactured by [employer]. The following summarizes the results of our [...] those who are already receiving pharmacological therapy. [facility] Primary Diagnostic Code: Primary Interpreting Staff: ALANNA HARRIS MD, CCD, STAFF VICE PRESIDENT OF DEVELOPMENT Verified by instructional facilitator for ALANNA HARRIS MD, CCD /ALANNA RAO [facility] May 22, 2024 05:06 AM MRI KNEE W/O CONTR AST: ROSE MARY BURKS [id number] -1955 M Exm Date: MAY 22, 2024@05:06 Req Phys: HILARIO CABRAL Loc: ADMINISTRATIVE CONTACT (Req'g Img Loc: MRI-X Service: [place] [address] (Case [id number] COMPLETE)MRI KNEE W/O CONTRAST (MRI Detailed) CPT:48345 Proc Modifiers : LEFT Reason for Study: [...] in the electronic medical record that your has a cardiac implantable electronic device. If [...] Information above has been reviewed with the [place]. The [place] agrees to have the MRI exam?Yes Report Status: Verified Date Reported: MAY 22, 2024 Date Verified: MAY 22, 2024 Armhole Baster Jumpbasting E-Sig: Report: EXAM: MRI KNEE W/O CONTRAST [...] Interpreting Staff: HOUSTON MILLER RADIOLOGIST Verified by instructional facilitator for HOUSTON MILLER /HOUSTON ANGUIANO [facility] Encounter Notes: All associated encounter notes This section contains the clinical notes associated to the Encounter. Date/Time Encounter Note(s) Provider Source May 22, 2024 10:36 AM TELEPHONE ENCOUNTE R NOTE: LOCAL TITLE: TELEPHONE CONTACT STANDARD TITLE: TELEPHONE ENCOUNTER NOTE DATE OF NOTE: MAY 22, 2024@10:36 ENTRY DATE: MAY 22, 2024@10:36:30 AUTHOR: HILARIO CABRAL EXP COSIGNER: URGENCY: STATUS: COMPLETED [address] [place], [place] [address] Patient RN, please let vwet knows jigar ths MRI of L knee is abnormal w/ high-grade near full width radial tear of the posterior horn. Please continue PT for now until we hear back form ortho/consult placed. NORMX /kallie/ HILARIO CABRAL DNP, ANP-C NURSE PRACTITIONER Signed: 05/22/2024 10:38 Receipt Acknowledged By: 05/23/2024 10:06 /kallie/ ROMÁN FAAJRDO RN STAFF NURSE HILARIO CABRAL [facility]
--- OUTSIDE RECORDS SUMMARY | 2024-05-23 06:16 | XMS_ITS | Encounter Summary ---
Author Name [facility] [place] Organization [facility] [place] Address [address] [place] [address] Care Team Providers Care Flatbed Driver Name Role Phone AMANDEEP PETERS Primary [...] PART A May 04, 2019 PART A [id number] BURKS,AN CAT PATIENT MEDICARE (WNR) MEDICARE (M) PART B May 04, 2019 PART B [id number] BURKS,AN CAT PATIENT MEDICARE (WNR) MEDICARE (M) PART A October 02, 2018 PART A [id number] BURKS,AN CAT PATIENT MEDICARE (WNR) MEDICARE (M) PART B October 02, 2018 PART B [id number] [phone] KIMMIE,ALVARO CAT PATIENT Selected Encounter This section includes the information on record at [place] for the Encounter. Date/Time Encounter Type Encounter Description Reason Pro vider Source May 23, 2024 10:16 AM Outpatient Encounter ADMITTING/SCREENING IHE Encounter Template Text not used by [place] Plan of Treatment: Future Appointments (+ 6 months) and Future Tests (+/- 45 days) The Plan of Treatment section includes future care activities for the patient from all [place] [facility]. This section includes future appointments and future orders which are active, pending or scheduled. Future Appointments This section includes appointments that were scheduled to occur 6 months from the date of the Encounter, up to a maximum of 20 appointments. The data comes from all [facility] [address] [facility]. Appointment Date/Time Appointment Type Appointme nt Facility Name Jun 18, 2024 01:00 PM AMBULATORY [facility] Jul 05, 2024 06:18 AM AM[facility]ORY - MEDICINE [facility] Jul 31, 2024 01:30 PM [facility] SURGERY [facility] Aug 06, 2024 04:15 PM AMBULATORY - [facility] Aug 08, 2024 01:00 PM AMBULATORY - REHAB MEDICIN E [facility] Aug 12, 2024 10:45 AM AMBULATORY - REHAB MEDICIN E [facility] Aug 19, 2024 10:15 AM AMBULATORY - REHAB MEDICIN E [facility] Aug 21, 2024 01:30 PM AMBULATORY - REHAB MEDICIN E [facility] Aug 26, 2024 10:45 AM AMBULATORY - REHAB MEDICIN E [facility] Aug 28, 2024 09:30 AM AMBULATORY - REHAB MEDICIN E [facility] Aug 29, 2024 10:15 AM AMBULATORY - REHAB MEDICIN E [facility] Sep 02, 2024 01:00 PM AMBULATORY - SURGERY [facility] Sep 11, 2024 02:45 PM AMBULATORY - REHAB MEDICIN E [facility] Sep 25, 2024 10:45 AM AMBULATORY - REHAB MEDICIN E [facility] Active, Pending, and Scheduled Orders This section includes a listing of several types of active, pending, and scheduled orders, including clinic medications orders, diagnostic test orders, procedure orders and consult orders; where the start date of the order is 45 days before the date of the Encounter or 45 days after the date of theEncounter. The data comes from all [facility] [address] [facility]. Test Date/Time Test Type Test Details Facility Name May 31, 2024 12:00 AM Laboratory - Chemi stry Order VITAMIN D (25-OH VITAMIN D) SCREEN LIGHT GREEN (LITHIUM HEPARIN) PLASMA SP ONCE [facility] May 31, 2024 12:00 AM Laboratory - Chemi stry Order COMPREHENSIVE METABOLIC PANEL LIGHT GREEN (LITHIUM HEPARIN) PLASMA SP [facility] May 31, 2024 12:00 AM Laboratory - Chemi stry Order LIPID STUDY (MUST BE FASTING) LIGHT GREEN (LITHIUM HEPARIN) SERUM SP ONCE [facility] Social History: Smoking Status (Most current) and Tobacco Use (All prior to encounter date) This section includes the most current, and the historical, smoking and tobacco- related health factors from the [place] facility where the Encounter took place. Current Smoking Status This section includes the most current smoking, or tobacco-related health factor, from the [place] facility where the Encounter took place. Date/Time Current Smoking Status Comment Facil ity Jan 04, 2017 03:31 PM CURRENT TOBACCO USER [facility] Tobacco Use History This section includes a history of the smoking, or tobacco-related health factors, that were collected on or before the date of the Encounter. The data comes from the [place] facility where the Encounter took place. Date/Time Smoking Status/Tobacco Use Comment F acility Jan 04, 2017 03:31 PM TOB INFO ON NON-VA STOP SMOKING CLINIC [facility] Jan 04, 2017 03:31 PM TOBACCO OFFERED PT MEDS (PROVIDE R) [facility] May 31, 2011 09:24 AM QUIT TOBACCO IN THE LAST 12 OCTAVIO [facility] Advance Directives: All historical and current Section Date Range: From patient's date of to the date document was created. This section includes ALL of a patient's completed or amended [place] Advance and Rescinded Directives. The entries below indicate that a directive exists for the patient, but an actual copy is not included with this document. The data comes from all [place] facilities. Date Advance Directives Provider Source Jun 13, 2023 ADVANCE DIRECTIVE DISCUSSION VÍCTOR HAMPTON [facility] Jan 16, 2008 ADVANCE DIRECTIVE ROBERTA GARCIA [facility] Jan 16, 2008 ADVANCE DIRECTIVE RALPH DE DIOS [facility] Radiology Reports: +/- 30 days of [...] the Encounter. The data comes from all [place] treatment facilities. Date/Time Radiology Report Provider Source May 22, 2024 05:07 AM DEXA FULL STUDY: ROSE MARY BURKS [id number] -1955 M Exm Date: MAY 22, 2024@05:07 Req Phys: HILARIO TORRES Loc: ADMINISTRATIVE CONTACT (Req'g Img Loc: PHX-COMPUTED RADIOGRAPHY-X Service: [place] [address] (Case [id number] COMPLETE)RADIOLOGY USE ONLYDEXA HIPS,P(RAD Detailed) CPT:96236 Reason for Study: screening for osteoporosis (Case [id number] COMPLETE)RADIOLOGY USE ONLYDEXA PERIPH(RAD Detailed) CPT:67630 Clinical History: Previous Fracture age >50? No [...] 23, 2024 Date Verified: MAY 23, 2024 Manager Math E-Sig: Report: DXA SCAN DXA scan was completed using [employer] system (software version 15 SP2) manufactured by [employer]. The following summarizes the results of our [...] those who are already receiving pharmacological therapy. [facility] Primary Diagnostic Code: Primary Interpreting Staff: ALANNA HARRIS MD, CCD, STAFF DIGITAL PUBLISHING SPECIALIST Verified by window treatment installer for ALANNA HARRIS MD, CCD /JFA ALANNA HARRIS [facility] May 22, 2024 05:06 AM MRI KNEE W/O CONTR AST: ROSE MARY BURKS [id number] -1955 M Exm Date: MAY 22, 2024@05:06 Req Phys: HILARIO TORRES Georgette Loc: ADMINISTRATIVE CONTACT (Req'g Img Loc: MRI-X Service: [place] [address] (Case [id number] COMPLETE)MRI KNEE W/O CONTRAST (MRI Detailed) CPT:16508 Proc Modifiers : LEFT Reason for Study: [...] Information above has been reviewed with the . The agrees to have the MRI exam?Yes Report Status: Verified Date Reported: MAY 22, 2024 Date Verified: MAY 22, 2024 Manager Math E-Sig: Report: EXAM: MRI KNEE W/O CONTRAST [...] Interpreting Staff: HOUSTON MILLER, RADIOLOGIST Verified by window treatment installer for HOUSTON MILLER /HOUSTON ANGUIANO [facility] Encounter Notes: All associated encounter notes This section contains the clinical notes associated to the Encounter. Date/Time Encounter Note(s) Provider Source May 23, 2024 10:16 AM ADMINISTRATIVE NOT E: LOCAL TITLE: ADMINISTRATIVE NOTE STANDARD TITLE: ADMINISTRATIVE NOTE DATE OF NOTE: MAY 23, 2024@10:16:47 ENTRY DATE: MAY 23, 2024@10:16:47 AUTHOR: ROMÁN FAJARDO EXP COSIGNER: URGENCY: STATUS: COMPLETED [place] [id number] DATE: MAY 23, 2024 ROSE MARY BURKS [address] [place], [place] [address] DEAR : THIS LETTER IS TO INFORM YOU THAT YOUR: XRAYS ARE: Your PCP/DNP Luis Angel Torres would like to relay the following message to you: Please let vet knows that his MRI of left knee is abnormal with high- grade near full width radial tear of the posterior horn. Please continue PT(Physical therapy) for now until we hear back from orthopedic/consult placed. YOUR NEXT APPOINTMENT WILL BE: Not specified. SINCERELY, ROMÁN FAJARDORN /kallie/ ROMÁN FAJARDO,AUTOMATIC PINSETTER MECHANIC NURSE Signed: 05/23/2024 10:17 ROMÁN FAJARDO [facility]
--- OUTSIDE RECORDS SUMMARY | 2024-05-23 06:27 | XMS_ITS | Encounter Summary ---
Author Name [facility] [facility] [place] [facility] [place] Address [address] [place] [address] Care Team Providers Care Dovetailer Name Role Phone AMANDEEP PETERS Primary Care [...] PART A May 04, 2019 PART A [id number] KIMMIE,ALVARO [place] PATIENT MEDICARE (WNR) MEDICARE (M) PART B May 04, 2019 PART B [id number] BURKS,AN CAT PATIENT MEDICARE (WNR) MEDICARE (M) PART A October 02, 2018 PART A [id number] BURKS,ALVARO ZHENGONY PATIENT MEDICARE (WNR) MEDICARE (M) PART B October 02, 2018 PART B [id number] KIMMIE,ALVARO [place] PATIENT Selected Encounter This section includes the information on record at [place] for the Encounter. Date/Time Encounter Type Encounter Description Reason Pro vider Source May 23, 2024 10:27 AM Outpatient Encounter ADMIN PAT ACTIVTIES (MASNONCT) IHE Encounter Template Text not used by [place] Plan of Treatment: Future Appointments (+ 6 months) and Future Tests (+/- 45 days) The Plan of Treatment section includes future care activities for the patient from all [place] [facility]. This section includes future appointments and future orders which are active, pending or scheduled. Future Appointments This section includes appointments that were scheduled to occur 6 months from the date of the Encounter, up to a maximum of 20 appointments. The data comes from all [facility]. Appointment Date/Time Appointment Type Appointme nt Facility Name Jun 18, 2024 01:00 PM AMBULATORY - SURGERY [facility] Jul 05, 2024 06:18 AM AM[facility]UL[facility]ORY - MEDICINE [facility] Jul 31, 2024 01:30 PM AMBULATORY - SURGERY [facility] Aug 06, 2024 04:15 PM AMBULATORY - REHAB MEDICIN E [facility] Aug 08, 2024 01:00 PM AMBULATORY - REHAB MEDICIN E [facility] Aug 12, 2024 10:45 AM AMBULATORY - REHAB MEDICIN E [facility] Aug 19, 2024 10:15 AM AMBULATORY - REHAB MEDICIN E [facility] Aug 21, 2024 01:30 PM AMBULATORY - REHAB MEDICIN E [facility] Aug 26, 2024 10:45 AM AMBULATORY - REHAB MEDICIN E [facility] Aug 28, 2024 09:30 AM AMBULATORY - REHAB MEDICIN E [facility] Aug 29, 2024 10:15 AM AMBULATORY - REHAB MEDICIN E [facility] Sep 02, 2024 01:00 PM AMBULATORY - SURGERY [facility] Sep 11, 2024 02:45 PM AMBULATORY - REHAB MEDICIN E [facility] Sep 25, 2024 10:45 AM AMBULATORY - REHAB MEDICIN E [facility] Active, Pending, and Scheduled Orders This section includes a listing of several types of active, pending, and scheduled orders, including clinic medications orders, diagnostic test orders, procedure orders and consult orders; where the start date of the order is 45 days before the date of the Encounter or 45 days after the date of theEncounter. The data comes from all [facility]. Test Date/Time Test Type Test Details Facility Name May 31, 2024 12:00 AM Laboratory - Chemi stry Order VITAMIN D (25-OH VITAMIN D) SCREEN LIGHT GREEN (LITHIUM HEPARIN) PLASMA SP ONCE [facility] May 31, 2024 12:00 AM Laboratory - Chemi stry Order COMPREHENSIVE METABOLIC PANEL LIGHT GREEN (LITHIUM HEPARIN) PLASMA SP [facility] May 31, 2024 12:00 AM Laboratory - Chemi stry Order LIPID STUDY (MUST BE FASTING) LIGHT GREEN (LITHIUM HEPARIN) SERUM SP ONCE [facility] Social History: Smoking Status (Most current) [...] 04, 2017 03:31 PM CURRENT TOBACCO USER [facility] Tobacco Use History This section includes a history of the smoking, or tobacco-related health factors, that were collected on or before the date of the Encounter. The data comes from the [place] facility where the Encounter took place. Date/Time Smoking Status/Tobacco Use Comment F acility Jan 04, 2017 03:31 PM TOB INFO ON NON-VA STOP SMOKING CLINIC [facility] Jan 04, 2017 03:31 PM TOBACCO OFFERED PT MEDS (PROVIDE R) [facility] May 31, 2011 09:24 AM QUIT TOBACCO IN THE LAST 12 OCTAVIO [facility] Advance Directives: All historical and [...] 13, 2023 ADVANCE DIRECTIVE DISCUSSION VÍCTOR HAMPTON [facility] Jan 16, 2008 ADVANCE DIRECTIVE ROBERTA GARCIA [facility] Jan 16, 2008 ADVANCE DIRECTIVE RALPH DE DIOS [facility] Radiology Reports: +/- 30 days of [...] AM DEXA FULL STUDY: ROSE MARY BURKS [id number] -1955 M Exm Date: MAY 22, 2024@05:07 Req Phys: HILARIO CABRAL Loc: ADMINISTRATIVE CONTACT (Req'g Img Loc: PHX-COMPUTED RADIOGRAPHY-X Service: [place] [address] (Case [id number] COMPLETE)RADIOLOGY USE ONLYDEXA HIPS,P(RAD Detailed) CPT:73766 Reason for Study: screening for osteoporosis (Case [id number] COMPLETE)RADIOLOGY USE ONLYDEXA PERIPH(RAD Detailed) CPT:52134 Clinical History: Previous Fracture age >50? No [...] 23, 2024 Date Verified: MAY 23, 2024 Cook Pie E-Sig: Report: DXA SCAN DXA scan was completed using [employer] system (software version 15 SP2) manufactured by [employer]. The following summarizes the results of our [...] those who are already receiving pharmacological therapy. [facility] Primary Diagnostic Code: Primary Interpreting Staff: ALANNA HARRIS MD, CCD, STAFF COMBER OPERATOR Verified by millwright instructor for ALANNA HARRIS MD, CCD /ALANNA RAO [facility] May 22, 2024 05:06 AM MRI KNEE W/O CONTR AST: ROSE MARY BURKS [id number] -1955 M Exm Date: MAY 22, 2024@05:06 Req Phys: HILARIO CABRAL Loc: ADMINISTRATIVE CONTACT (Req'g Img Loc: MRI-X Service: [place] [address] (Case [id number] COMPLETE)MRI KNEE W/O CONTRAST (MRI Detailed) CPT:46483 Proc Modifiers : LEFT Reason for Study: [...] Information above has been reviewed with the [place]. The [place] agrees to have the MRI exam?Yes Report Status: Verified Date Reported: MAY 22, 2024 Date Verified: MAY 22, 2024 Cook Pie E-Sig: Report: EXAM: MRI KNEE W/O CONTRAST [...] Interpreting Staff: HOUSTON MILLER RADIOLOGIST Verified by millwright instructor for HOUSTON MILLER /HOUSTON ANGUIANO [facility] Encounter Notes: All associated encounter notes This section contains the clinical notes associated to the Encounter. Date/Time Encounter Note(s) Provider Source May 23, 2024 10:39 AM TELEPHONE ENCOUNTE R NOTE: LOCAL TITLE: TELEPHONE CONTACT STANDARD TITLE: TELEPHONE ENCOUNTER NOTE DATE OF NOTE: MAY 23, 2024@10:39 ENTRY DATE: MAY 23, 2024@10:39:50 AUTHOR: HILARIO CABRAL EXP COSIGNER: URGENCY: STATUS: COMPLETED [address] [place], [place] [address] Patient RN, please contact vet to let him know DEXA SCAN shows he has low bone mass. Start Calciium./vitamin D 2 tab po bid, stool softener 2 tab po bid prn, vitamin C 500 1 tab po everyday/mail.: DOCUSATE/SENNA TAB 05/23/24@1030 PENDING CALCIUM CITRATE 315MG/VIT D 05/23/24@1029 PENDING ASCORBIC ACID TAB 05/23/24@1029 PENDING Thanks /kallie/ HILARIO CABRAL DNP, ANP-C NURSE PRACTITIONER Signed: 05/23/2024 10:42 Receipt Acknowledged By: 05/26/2024 08:10 /kallie/ CHRISTI BENAVIDEZ RN ui programmer HILARIO CABRAL [facility]
--- OUTSIDE RECORDS SUMMARY | 2024-07-05 02:18 | XMS_ITS | Encounter Summary ---
Author Name [facility] Organization [facility] [place] Address [address] [place] [address] Care Team Providers Care Wash And Greaser Name Role Phone AMANDEEP PETERS Primary Care [...] PART A May 04, 2019 PART A [id number] KIMMIE,ALVARO ZHENGONY PATIENT MEDICARE (WNR) MEDICARE (M) PART B May 04, 2019 PART B [id number] BURKS,AN CAT PATIENT MEDICARE (WNR) MEDICARE (M) PART A October 02, 2018 PART A [id number] BURKS,AN CAT PATIENT MEDICARE (WNR) MEDICARE (M) PART B October 02, 2018 PART B [id number] KIMMIE,ALVARO SHELTON PATIENT Selected Encounter This section includes the information on record at [place] for the Encounter. Date/Time Encounter Type Encounter Description Reason Provider Source Jul 05, 2024 06:18 AM EMERGENCY DEPT VISIT MOD MDM EMERGENCY DEPT ICD-10-CM M25.562 Pain in left knee GABRIELA MARSH IHAna Laura Encounter Template Text not used by [place] Assessments - Encounter Diagnoses This section includes the primary and secondary diagnoses documented for the Encounter. Date/Time Primary/Secondary Diagnosis Diagnosis Name Provider Source Jul 05, 2024 07:18 AM PRIMARY Pain in left knee GABRIELA MARSH [facility] Plan of Treatment: Future Appointments (+ 6 months) and Future Tests (+/- 45 days) The Plan of Treatment section includes future care activities for the patient from all [facility]. This section includes future appointments and future orders which are active, pending or scheduled. Future Appointments This section includes appointments that were scheduled to occur 6 months from the date of the Encounter, up to a maximum of 20 appointments. The data comes from all [place] treatment facilities. Appointment Date/Time Appointment Type Appointme nt Facility Name Jul 31, 2024 01:30 PM AMBULATORY - SUR[facility]ERY [facility] Aug 06, 2024 04:15 PM AMBULATORY - REHAB [facility]IC[facility] Aug 08, 2024 01:00 PM AMBULATORY - [...] AM[facility]ULATORY - SURG[facility] Sep 11, 2024 02:45 PM AMBULATORY [...] of theEncounter. The data comes from all [place] treatment facilities. Test Date/Time Test Type Test Details Facility Name May 31, 2024 12:00 AM Laboratory - Chemi stry Order VITAMIN D (25-OH VITAMIN D) SCREEN LIGHT GREEN (LITHIUM HEPARIN) PLASMA SP ONCE [facility] May 31, 2024 12:00 AM Laboratory - Chemi stry Order COMPREHENSIVE METABOLIC PANEL LIGHT GREEN (LITHIUM HEPARIN) PLASMA SP [facility] May 31, 2024 12:00 AM Laboratory - Chemi stry Order LIPID STUDY (MUST BE FASTING) LIGHT GREEN (LITHIUM HEPARIN) SERUM SP ONCE [facility] Vital Signs: All taken on the encounter date This section contains inpatient and outpatient Vital Signs collected on the date of the Encounter. Date/Time Temperature Pulse Blood Pressure Respiratory Rate SP02 Pain Height Weight Body Mass Index Source Jul 05, 2024 06:27 AM 7 [facility] Jul 05, 2024 06:22 AM 97.8 90 138/86 18 99 9 66.0 213.8 35 [facility] Social History: Smoking Status (Most current) and Tobacco Use (All prior to encounter date) This section includes the most current, and the historical, smoking and tobacco- related health factors from the [place] facility where the Encounter took place. Current Smoking Status This section includes the most current smoking, or tobacco-related health factor, from the [place] facility where the Encounter took place. Date/Time Current Smoking Status Comment Bautista ity Jan 04, 2017 03:31 PM CURRENT TOBACCO USER [facility] Tobacco Use History This section includes a history of the smoking, or tobacco-related health factors, that were collected on or before the date of the Encounter. The data comes from the [place] facility where the Encounter took place. Date/Time Smoking Status/Tobacco Use Comment F acility Jan 04, 2017 03:31 PM TOB INFO ON NON-VA STOP SMOKING CLINIC [facility] Jan 04, 2017 03:31 PM TOBACCO OFFERED PT MEDS (PROVIDE R) [facility] May 31, 2011 09:24 AM QUIT TOBACCO IN THE LAST 12 [facility] Advance Directives: All historical and current Section Date Range: From patient's date of to the date document was created. This section includes ALL of a patient's completed or amended [place] Advance and Rescinded Directives. The entries below indicate that a directive exists for the patient, but an actual copy is not included with this document. The data comes from all [place] facilities. Date Advance Directives Provider Source Jun 13, 2023 ADVANCE DIRECTIVE DISCUSSION MEMOVÍCTOR NUNEZ CARMENZA [facility] Jan 16, 2008 ADVANCE DIRECTIVE CONCHITAJENNIFERROBERTA [place] [facility] Jan 16, 2008 ADVANCE DIRECTIVE [place] DE DIOSInez Quinn [place] [facility] Encounter Notes: All associated encounter notes This section contains the clinical notes associated to the Encounter. Date/Time Encounter Note(s) Provider Source Jul 05, 2024 06:46 AM EMERGENCY DEPT DIS CHARGE NOTE: LOCAL TITLE: EMERGENCY DEPT DISCHARGE INSTRUCTIONS STANDARD TITLE: EMERGENCY DEPT DISCHARGE NOTE DATE OF NOTE: JUL 05, 2024@06:46:27 ENTRY DATE: JUL 05, 2024@06:46:27 AUTHOR: GABRIELA MARSH COSIGNER: URGENCY: STATUS: COMPLETED DISCHARGE INSTRUCTIONS IMPORTANT: [...] instructions below. You were treated today by Gabriela Marsh, . [facility] Nurse Advice Call Center: Available 24 hours a day / 7 days a week at [phone] Special Information This Information Is About Your Follow Up Care We recommend that you follow up with your Primary Care Team to have an appointment within the next 2 days. Call to arrange this appointment. You will need a follow-up appointment at the [facility]opedic [facility]. You can reach the Orthopedic Clinic at [phone] to make an appointment. 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 -any questions or concerns. MENISCUS INJURY (Knee cartilage injury) There is a cushion between the bones of the upper and lower leg. It is made of cartilage and we call it the meniscus. It normally has a very smooth surface. It lets the bones slide easily on each other. If the meniscus gets bruised or torn, it no longer has a smooth-sliding surface. Bending the knee hurts. If the meniscus has a tear in just the wrong place, the knee might lock in place. If your knee pain goes away, and your knee looks normal to your healthcare provider, no further treatment is needed. If, however, the knee remains painful, surgery may be necessary. Follow these instructions: -Rest your knee and avoid any more injury. -If you were given a knee splint, wear it until you see your healthcare provider. Contact your healthcare provider if you have any new or severe symptoms. IMPORTANT MEDICATION INFORMATION -Your medication list includes [...] by health care institutions other than the [place]. Pending Medications [none] Active Medications AMLODIPINE BESYLATE 5MG TAB TAKE ONE TABLET BY MOUTH EVERY DAY FOR HIGH BLOOD PRESSURE ASCORBIC ACID 500MG TAB TAKE ONE TABLET BY MOUTH EVERY DAY FOR INADEQUATE VITAMIN C CALCIUM CITRATE 315MG/VIT D 200 UNT TAB TAKE 2 TABLETS BY MOUTH TWICE A DAY FOR SUPPLEMENTATION CLOPIDOGREL BISULFATE 75MG TAB TAKE ONE TABLET BY MOUTH EVERY MORNING TO PREVENT STROKE DOCUSATE NA 50MG/SENNOSIDES 8.6MG TAB TAKE 2 TABLETS BY MOUTH TWICE A DAY NEEDED FOR CONSTIPATION ERGOCALCIF 1,250MCG (D2-50,000UNIT) CAP TAKE ONE CAPSULE BY MOUTH EVERY WEEK FOR VITAMIN D DEFICIENCY FUROSEMIDE TAB 40MG BY MOUTH EVERY DAY (Non-VA Medication) GABAPENTIN CAP,ORAL 300MG BY MOUTH THREE TIMES A DAY (Non-VA Medication) METHYLPREDNISOLONE 4MG TAB DOSEPAK,21 TAKE TABLETS BY MOUTH DIRECTED FOR INFLAMMATION/PAIN WITH FOOD PER INSTRUCTIONS LOCATED ON BACK OF FOIL PACKAGE POTASSIUM CHLORIDE (DELAYED RELEASE) CAP,SA 10MEQ BY MOUTH EVERY DAY (Non-VA Medication) POTASSIUM CHLORIDE (DELAYED RELEASE) CAP,SA 10MEQ BY MOUTH EVERY DAY (Non-VA Medication) ROSUVASTATIN CA 20MG TAB TAKE ONE TABLET BY MOUTH EVERY DAY FOR HIGH CHOLESTEROL Medications Medications in the last 90 days LIDOCAINE 4% TOP CREAM APPLY MODERATE AMOUNT TOPICALLY EVERY DAY BACK PAIN TIZANIDINE HCL 4MG TAB TAKE ONE TABLET BY MOUTH TWICE A DAY NEEDED FOR MUSCLE SPASM Discontinued Medications Medications discontinued in the last 90 days [none] YOU ARE THE MOST IMPORTANT FACTOR IN YOUR RECOVERY. Follow the above instructions carefully. Take your medicines as prescribed. If you do not understand any of your medicines, please ask questions. If you think you may not be able to pepper picker your medicine, please let us know [...] GO TO THE NEAREST EMERGENCY ROOM /kallie/ GABRIELA MARSH PHYSICIAN Signed: 07/05/2024 06:46 GABRIELA MARSH [facility] Jul 05, 2024 06:43 AM NURSING NOTE: LOCAL TITLE: EMERGENCY RN CARE NOTE STANDARD TITLE: NURSING NOTE DATE OF NOTE: JUL 05, 2024@06:43 ENTRY DATE: JUL 05, 2024@06:44 AUTHOR: JOSE VINCENT EXP COSIGNER: URGENCY: STATUS: COMPLETED EMERGENCY DEPARTMENT RN NOTE BRIEF INITIAL ASSESSMENT: INITIAL ED NURSING ASSESSMENT ARRIVAL: Jul 635: Betsy assumes care of patient. CHIEF COMPLAINT: Left knee pain and swelling. Had recent injection to site on 06/18. Denies recent injury or fall. Completed on Arrival: NIBP PAIN ASSESSMENT Pain Scale: Numeric Does patient currently have any pain? Yes Chronic Yes Site location: L knee Quality: (aching, burning, cramping, dull, sharp, shooting, stabbing, throbbing, tender) aching Pain level: 7 Onset/Duration: (how long have you had your pain): days Pattern: (comes and goes, nightly, when breathing, etc): comes and goes TREATMENT PRIOR TO ARRIVAL: None SYSTEMS ASSESSMENT: NEUROLOGICAL/MOTOR: Level of Consciousness: Awake Alert Oriented: x 4 Decreased level of consciousness? No Pupils: Size: R: 3mm L: 3mm Equal Round Reactive to Light Accomodate Glascow Coma Scale: Eyes Open: 4 = spontaneously Verbal response: 5 = oriented Motor response: 6 = obeys commands *Total: 15 MUSCULOSKELETAL SYSTEM Patient indicates: Other: pain, swelling Location of complaint: L knee NURSING PROCEDURES: 635: Patient taken to room, A+Ox4, awaiting provider evaluation. 651: Patient Discharged. Patient received Logic care notes for this condition, Patient verbalized understanding of instructions, education. Patient left ER ambulated with steady gait to ER lobby to wait for RX prescriptions /es/ JOSE VINCENT RN Signed: 07/05/2024 06:55 JOSE VINCENT [facility] Jul 05, 2024 06:42 AM PHYSICIAN EMERGENC Y DEPT NOTE: LOCAL TITLE: EMERGENCY DEPT PHYSICIAN NOTE STANDARD TITLE: PHYSICIAN EMERGENCY DEPT NOTE DATE OF NOTE: JUL 05, 2024@06:42 ENTRY DATE: JUL 05, 2024@06:43:03 AUTHOR: GABRIELA MARSH COSIGNER: URGENCY: STATUS: COMPLETED Emergency Department Provider Note CC: Left knee pain HPI: This patient with a history of left knee arthritis and meniscal tear presents to the emergency department complaining of increased pain. Patient states that on November 16, he received a Kenalog and Xylocaine injection for his knee pain however he has not noticed any relief and in fact feels that his knee pain is worse. He has not developed any increased redness,, fevers or chills or other concerns. He denies any swelling focal weakness or sensory deficits. Denies any recent injury. Patient states he has not taken any medicine for his pain because nothing seems to help. Denies other concerns. ROS: Gen- no fever or chills, fatigue CV- no CP Resp- no dyspnea, cough Ext-as noted above neuro- no parasthesias, no focal weakness Active problems - Computerized Problem List is the source for the following: PROBLEM 1. Tobacco use (SNOMED CT 457074720) cigarettes 1 pack every 2 days 2. Allergic rhinitis (SNOMED CT 77643842) 3. Chronic obstructive lung disease 4. Degeneration of cervical intervertebral disc 5. Edema 6. Vitamin D deficiency 7. Gastro-esophageal reflux disease with esophagitis 8. Transient ischemic attack 9. Memory impairment 10. Hypertensive heart disease 11. Hyperlipidemia 12. Secondary hypertension 13. Old tear of posterior horn of medial meniscus L knee 14. Osteoporosis Allergy: BACTRIM OUTPATIENT MEDICATIONS (per [facility] Records): ASCORBIC ACID 500MG TAB TAKE ONE TABLET BY MOUTH EVERY DAY FOR INADEQUATE VITAMIN C CALCIUM CITRATE 315MG/VIT D 200 UNT TAB TAKE 2 TABLETS BY MOUTH TWICE A DAY FOR SUPPLEMENTATION DOCUSATE NA 50MG/SENNOSIDES 8.6MG TAB TAKE 2 TABLETS BY MOUTH TWICE A DAY NEEDED FOR CONSTIPATION AMLODIPINE BESYLATE 5MG TAB TAKE ONE TABLET BY MOUTH EVERY DAY FOR HIGH BLOOD PRESSURE CLOPIDOGREL BISULFATE 75MG TAB TAKE ONE TABLET BY MOUTH EVERY MORNING TO PREVENT STROKE ERGOCALCIF 1,250MCG (D2-50,000UNIT) CAP TAKE ONE CAPSULE BY MOUTH EVERY WEEK FOR VITAMIN D DEFICIENCY ROSUVASTATIN CA 20MG TAB TAKE ONE TABLET BY MOUTH EVERY DAY FOR HIGH CHOLESTEROL Physical exam: VITALS - DATE/TIME TEMP F/C PULSE RESP BP PAIN WT LB/KG P OX 07/05/24 @ 0627 7 General: well developed, well nourished in NAD Head: normocephalic, Atraumatic Neck: supple, full range of motion Lungs: clear to auscultation CV: Regular rate and rhythm Ext: No cyanosis, no edema, no calf tenderness. Left knee has full range of motion. No crepitance. There is a mild left knee effusion. No overlying erythema or warmth. No ligament instability appreciated. Skin: clean, dry and intact. No rash Neuro: Alert and Oriented x 4 Assessment and plan: I reviewed patient's electronic medical record. He has had left knee x-rays as well as an MRI. He does have a meniscal tear as well as significant degenerative changes. He will benefit from further orthopedic consultation. Patient will follow-up in their clinic. He declines and says stating that they do not seem to help. We will trial a course of Medrol. He has a knee brace that he is wearing for extra support. I have asked him to offload. Should he develop new or worsening symptoms or other concerns, he has been instructed to return here for further evaluation and treatment. Clinical impression: Acute exacerbation of chronic left knee pain Instructions: Return to ED if sxs worsen or other acute problems. Pt verbalized understanding of all above and is discharged in stable condition. This is not a SEPSIS admission. NOTE TO PCP Dear PCP Your patient was seen in ED today. Abnormal findings and need for follow up has been communicated directly with Patient and/or family . Please follow up on ED visit and all related studies. /kallie/ GABRIELA MARSH PHYSICIAN Signed: 07/05/2024 06:49 GABRIELA MARSH [facility] Jul 05, 2024 06:33 AM NURSING NOTE: LOCAL TITLE: EMERGENCY RN CARE NOTE STANDARD TITLE: NURSING NOTE DATE OF NOTE: JUL 05, 2024@06:33 ENTRY DATE: JUL 05, 2024@06:33:25 AUTHOR: MARY WISEMAN EXP COSIGNER: URGENCY: STATUS: COMPLETED EMERGENCY DEPARTMENT RN NOTE BRIEF INITIAL ASSESSMENT: INITIAL ED NURSING ASSESSMENT ARRIVAL: Mary GOMES assumes care of patient. CHIEF COMPLAINT: 06: MD at bedside for assessment. Pt here with worsening left knee pain. Had recent injection to site on 06/18. Denies recent injury or fall. Does have swelling to knee, but pt states that is normal. Posterior Tibial pulse on left is 1+. Completed on Arrival: spO2 ECG NIBP PAIN ASSESSMENT Pain Scale: Numeric Does patient currently have any pain? Yes Acute Yes Site location: Left knee Pain level: 7 Quality: (aching, burning, cramping, dull, sharp, shooting, stabbing, throbbing, tender) shooting Onset/Duration: (how long have you had your pain): days Pattern: (comes and goes, nightly, when breathing, etc): constant SYSTEMS ASSESSMENT: NEUROLOGICAL/MOTOR: Level of Consciousness: Awake Alert Oriented: x 4 Decreased level of consciousness? No Glascow Coma Scale: Eyes Open: 4 = spontaneously Verbal response: 5 = oriented Motor response: 6 = obeys commands *Total: 15 RESPIRATORY: Breath sounds: Appearance: Unlabored Is a Cough present? No CARDIOVASCULAR: Patient placed on steel die engraver? No Pulses: Right radial: Left radial: +2 Capillary refill: < 3 seconds 0635: Handoff report to Willy RN. /kallie/ MARY WISEMAN RN Signed: 07/05/2024 06:36 MARY WISEMAN [facility] Jul 05, 2024 06:24 AM NURSING EMERGENCY DEPT TRIAGE NOTE: LOCAL TITLE: EMERGENCY RECEP NOTE STANDARD TITLE: NURSING EMERGENCY DEPT TRIAGE NOTE DATE OF NOTE: JUL 05, 2024@06:24 ENTRY DATE: JUL 05, 2024@06:24:47 AUTHOR: OLEG CABRERA EXP COSIGNER: URGENCY: STATUS: COMPLETED Emergency Department/Urgent Care Center Triage Patient age:68 Sex in chart: MALE Mode of Arrival: Private vehicle Mode of Mobility: * Walk Chief Complaint: LEFT KNEE PAIN (CHRONIC) WANTS SHOT IN LEFT KNEE dumper Note (Subjective/Objective): PT USING WALKER AND LIMPS C/O LEFT KNEE PAIN Level of Consciousness (AVPU): Alert = Appears aware of and responsive to the environment on their own. Follows commands, opens eyes spontaneously, and tracks objects. Vital Signs: Vital signs previously recorded this visit: Measurement DT TEMP RESP PULSE BP POx F(C) (L/MIN)(%) 07/05/2024 06:22 97.8(36.6) 18 90 138/86 99 06/18/2024 12:26 98.1(36.7) 17 92 130/78 98 04/02/2024 13:50 97.6(36.4) 18 85 134/77 98 Measurement DT PAIN WEIGHT LB(KG)[BMI] 07/05/2024 06:22 9 213.8(96.98)[35*] 06/18/2024 12:26 5 215.39(97.70)[35*] 04/02/2024 13:50 10 Pain: DVPRS Scale Location: LEFT KNEE Defense and Veterans Pain Rating Scale (DVPRS): 7 Focus of attention, prevents doing daily activities Pain Score: 7 Patient's acceptable pain goal: 0 No pain Suicide Screen: Romance Suicide Severity Rating Scale (C-SSRS) screener 1. [...] required due to responses to other questions. Emergency Severity Index (MICHAEL) level: Level 4 Previously documented allergies: BACTRIM Current Problems: 14 Active Problems PROBLEM LAST MOD PROVIDER Tobacco use ([facility] 478763535) (ICD-10-CM Z72.0); 11/19/2018 Rei WEI Tobacco use (SNOMED CT 832636165) Cigarettes 1 pack every 2 days Allergic rhinitis, unspecified (SCT 93958803) 09/10/2018 Rei WEI (ICD-10-CM J30.9); Allergic rhinitis (SNOMED CT 64018929) Chronic obstructive lung disease ([facility] 52448354) 03/22/2017 YOUNG CARIAS (ICD-10-CM J44.9) Degeneration of cervical intervertebral disc 01/02/2022 MARIANNA,SOTA ([facility] [id number]) (ICD-10-CM M50.30) Edema ([facility] [id number]) (ICD-10-CM R60.9) 01/02/2022 MARIANNA,SOTA Vitamin D deficiency (SCT 47368237) (ICD-10-CM 01/02/2023 MARIANNA,SOTA E55.9), Onset 01/02/2023 Gastro-esophageal reflux disease with 01/03/2023 MARIANNA,SOTA esophagitis (SCT 160758991) (ICD-10-CM K21.00) Transient cerebral ischemia ([facility] [id number]) 03/08/2023 MARIANNA,SOTA (ICD-10-CM G45.8) Memory impairment (SCT 892341817) (ICD-10-CM 03/08/2023 MARIANNA,SOTA I69.811) Hypertensive heart disease ([facility] [id number]) 03/08/2023 MARIANNA,SOTA (ICD-10-CM I11.9) Hyperlipidemia ([facility] 60908334) (ICD-10-CM E78.5) 03/08/2023 MARIANNAFANDAVID Secondary hypertension (SCT 88205201) (ICD-10-CM 05/08/2023 PADMA MARIN F I15.9) Old tear of posterior horn of medial meniscus 05/22/2024 MARIANNASOTA (SCT 924353799) (ICD-10-CM M23.229) L knee Osteoporosis (SCT 21076206) (ICD-10-CM M81.0), 05/23/2024 MARIANNAFANDAVID Onset 05/23/2024 /kallie/ OLEG CABRERA RN Signed: 07/05/2024 06:28 OLEG CABRERA [facility]
--- OUTSIDE RECORDS SUMMARY | 2024-07-05 09:23 | XMS_ITS | Encounter Summary ---
Author Name [facility] [place] [facility] [place] Address [address] [place] [address] Care Team Providers Care Music Intern Name Role Phone AMANDEEP PETERS Primary Care [...] PART A May 04, 2019 PART A [id number] KIMMIE,ALVARO SHELTON PATIENT MEDICARE (WNR) MEDICARE (M) PART B May 04, 2019 PART B [id number] BURKS,AN CAT PATIENT MEDICARE (WNR) MEDICARE (M) PART A October 02, 2018 PART A [id number] [phone] BURKS,ALVARO ZHENGONY PATIENT MEDICARE (WNR) MEDICARE (M) PART B October 02, 2018 PART B [id number] KIMMIE,ALVARO SHELTON PATIENT Selected Encounter This section includes the information on record at [place] for the Encounter. Date/Time Encounter Type Encounter Description Reason Pro vider Source Jul 05, 2024 01:23 PM Outpatient Encounter ADMIN PAT ACTIVTIES (MASNONCT) I[facility] Encounter Template Text not used by [facility] Plan of Treatment: Future Appointments (+ 6 months) and Future Tests (+/- 45 days) The Plan of Treatment section includes future care activities for the patient from all [place] [facility]. This section includes future appointments and future orders which are active, pending or scheduled. Future Appointments This section includes appointments that were scheduled to occur 6 months from the date of the Encounter, up to a maximum of 20 appointments. The data comes from all [facility]. Appointment Date/Time Appointment Type Appointme nt Facility Name Jul 31, 2024 01:30 PM AMBULATORY - SURGERY [facility] Aug 06, 2024 04:15 PM AMBULATORY - REHAB MEDICIN [facility] Aug 08, 2024 01:00 PM AMBULATORY - REHAB MEDICIN [facility] Aug 12, 2024 10:45 AM AMBULATORY - REHAB MEDICIN [facility] Aug 19, 2024 10:15 AM AMBULATORY - REHAB MEDICIN [facility] Aug 21, 2024 01:30 PM AMBULATORY - REHAB MEDICIN [facility] Aug 26, 2024 10:45 AM AMBULATORY - REHAB MEDICIN [facility] Aug 28, 2024 09:30 AM AMBULATORY - REHAB MEDICIN [facility] Aug 29, 2024 10:15 AM AMBULATORY - REHAB MEDICIN [facility] Sep 02, 2024 01:00 PM AMBULATORY - SURGERY [facility] Sep 11, 2024 02:45 PM AMBULATORY - REHAB MEDICIN [facility] Sep 25, 2024 10:45 AM [facility] Active, Pending, and Scheduled Orders This section includes a listing of several types of active, pending, and scheduled orders, including clinic medications orders, diagnostic test orders, procedure orders and consult orders; where the start date of the order is 45 days before the date of the Encounter or 45 days after the date of theEncounter. The data comes from all [facility]. Test Date/Time Test Type Test Details Facility Name May 31, 2024 12:00 AM Laboratory - Chemi stry Order VITAMIN D (25-OH VITAMIN D) SCREEN LIGHT GREEN (LITHIUM HEPARIN) PLASMA SP ONCE [facility] May 31, 2024 12:00 AM Laboratory - Chemi stry Order COMPREHENSIVE METABOLIC PANEL LIGHT GREEN (LITHIUM HEPARIN) PLASMA SP [facility] May 31, 2024 12:00 AM Laboratory - Chemi stry Order LIPID STUDY (MUST BE FASTING) LIGHT GREEN (LITHIUM HEPARIN) SERUM SP ONCE [facility] Vital Signs: All taken on the encounter date This section contains inpatient and outpatient Vital Signs collected on the date of the Encounter. Date/Time Temperature Pulse Blood Pressure Respiratory Rate SP02 Pain Height Weight Body Mass Index Source Jul 05, 2024 06:27 AM 7 [facility] Jul 05, 2024 06:22 AM 97.8 90 138/86 18 99 9 66.0 213.8 35 [facility] Social History: Smoking Status (Most [...] 04, 2017 03:31 PM CURRENT TOBACCO USER [facility] Tobacco Use History This section includes a history of the smoking, or tobacco-related health factors, that were collected on or before the date of the Encounter. The data comes from the [place] facility where the Encounter took place. Date/Time Smoking Status/Tobacco Use Comment F acility Jan 04, 2017 03:31 PM TOB INFO ON NON-VA STOP SMOKING CLINIC [facility] Jan 04, 2017 03:31 PM TOBACCO OFFERED PT MEDS (PROVIDE R) [facility] May 31, 2011 09:24 AM [...] 13, 2023 ADVANCE DIRECTIVE DISCUSSION VÍCTOR [facility] Jan 16, 2008 ADVANCE DIRECTIVE ROBERTA GARCIA [facility] Jan 16, 2008 ADVANCE DIRECTIVE [facility]PH [facility] Encounter Notes: All associated encounter notes This section contains the clinical notes associated to the Encounter. Date/Time Encounter Note(s) Provider Source Jul 05, 2024 01:23 PM PRIMARY CARE NOTE: LOCAL TITLE: PRIMARY CARE ED VISIT REVIEW STANDARD TITLE: PRIMARY CARE NOTE DATE OF NOTE: JUL 05, 2024@13:23 ENTRY DATE: JUL 05, 2024@13:23:25 AUTHOR: HILARIO CABRAL EXP COSIGNER: URGENCY: STATUS: COMPLETED Summary of ED Visit and Future Care Needs: CC: Left knee pain HPI: This patient [...] nothing seems to help. Denies other concerns. RN, please contact eunice barrera/joanna arciniega /kallie/ HILARIO CABRAL DNP, ANP-C NURSE PRACTITIONER Signed: 07/05/2024 13:24 Receipt Acknowledged By: 07/08/2024 09:51 /es/ CHRISTI BENAVIDEZ RN RN Care Manager HILARIO CARBAL [facility]
--- OUTSIDE RECORDS SUMMARY | 2024-07-31 09:30 | XMS_ITS | Encounter Summary ---
Author Name [facility] [place] [facility] [place] Address [address] [place] [address] Care Team Providers Care Doctor Of Osteopathy Name Role Phone AMANDEEP PETERS Primary Care [...] PART A May 04, 2019 PART A [id number] KIMMIE,ALVARO SHELTON PATIENT MEDICARE (WNR) MEDICARE (M) PART B May 04, 2019 PART B [id number] BURKS,AN CAT PATIENT MEDICARE (WNR) MEDICARE (M) PART A October 02, 2018 PART A [id number] KIMMIE,ALVARO ZHENGONY PATIENT MEDICARE (WNR) MEDICARE (M) PART B October 02, 2018 PART B [id number] KIMMIE,ALVARO SHELTON PATIENT Selected Encounter This section includes the information on record at [place] for the Encounter. Date/Time Encounter Type Encounter Description Reason Provider Source Jul 31, 2024 01:30 PM OFFICE O/P EST MOD 30 MIN ORTHOPEDICS ICD-10-CM M17.12 Unilateral primary osteoarthritis, left knee MARYLOU HA [facility] Encounter Template Text not used by [place] Assessments - Encounter Diagnoses This section includes the primary and secondary diagnoses documented for the Encounter. Date/Time Primary/Secondary Diagnosis Diagnosis Name Provider Source Jul 31, 2024 01:32 PM PRIMARY Unilateral primary osteoarthritis, left knee KRYSTLE HA ALY A [facility] Jul 31, 2024 01:32 PM SECONDARY Pain in left knee KRYSTLE HA Jerrod [facility] Plan of Treatment: Future Appointments (+ 6 months) and Future Tests (+/- 45 days) The Plan of Treatment section includes future care activities for the patient [facility] [place] [facility] This section includes future appointments and future orders which are active, pending or scheduled. Future Appointments This section includes appointments that were scheduled to occur 6 months from the date of the Encounter, up to a maximum of 20 appointments. The data comes from all [place] treatment facilities. Appointment Date/Time Appointment Type Appointme nt Facility Name Aug 06, 2024 04:15 PM AMBULATORY - REHAB MEDICIN [facility] Aug 08, 2024 01:00 PM AMBULATORY - [facility]IC[facility] Aug 12, 2024 10:45 AM AMBULATORY - REHAB [facility]ICIN [facility] Aug 19, 2024 10:15 AM AMBULATORY - REHAB [facility]IC[facility] Aug 21, 2024 01:30 PM AMBULATORY - REHAB MEDICIN [facility] Aug 26, 2024 10:45 AM AMBULATORY - REHAB [facility]ICIN [facility] Aug 28, 2024 09:30 AM AMBULATORY - REHAB [facility]IC[facility] Aug 29, 2024 10:15 AM AMBULATORY - REHAB MEDICIN [facility] Sep 02, 2024 01:00 PM AMBULATORY - SURGERY [facility] Sep 11, 2024 02:45 PM AMBULATORY - REHAB MEDICIN [facility] Sep 25, 2024 10:45 AM AMBULATORY - REHAB MEDICIN [facility] Active, Pending, and Scheduled Orders This section includes a listing of several types of active, pending, and scheduled orders, including clinic medications orders, diagnostic test orders, procedure orders and consult orders; where the start date of the order is 45 days before the date of the Encounter or 45 days after the date of theEncounter. The data comes from all [place] treatment facilities. Test Date/Time Test Type Test Details Facility Name Sep 02, 2024 12:00 AM Laboratory - Chemi stry Order OCCULT BLOOD FIT X1 SCREEN (MFP ONLY) STOOL, RANDOM FECES SP ONCE [facility] Vital Signs: All taken on the encounter date This section contains inpatient and outpatient Vital Signs collected on the date of the Encounter. Date/Time Temperature Pulse Blood Pressure Respiratory Rate SP02 Pain Height Weight Body Mass Index Source Jul 31, 2024 12:00 PM 97.7 84 132/86 17 98 10 [facility] Social History: Smoking Status (Most current) and [...] 2017 03:31 PM CURRENT TOBACCO USER [facility] Tobacco Use History This section includes a history of the smoking, or tobacco-related health factors, that were collected on or before the date of the Encounter. The data comes from the [place] facility where the Encounter took place. Date/Time Smoking Status/Tobacco Use Comment F acility Jan 04, 2017 03:31 PM TOB INFO ON NON-VA STOP SMOKING CLINIC [facility] Jan 04, 2017 03:31 PM TOBACCO OFFERED PT MEDS (PROVIDE R) [facility] May 31, 2011 09:24 AM QUIT TOBACCO IN THE LAST 12 [facility] Advance Directives: All historical and current [...] 13, 2023 ADVANCE DIRECTIVE DISCUSSION VÍCTOR [facility] Jan 16, 2008 ADVANCE DIRECTIVE ROBERTA GARCIA [facility] Jan 16, 2008 ADVANCE DIRECTIVE RALPH DE DIOS ELLEN [facility] Encounter Notes: All associated encounter notes This section contains the clinical notes associated to the Encounter. Date/Time Encounter Note(s) Provider Source Jul 31, 2024 01:24 PM ORTHOPEDIC SURGERY OUTPATIENT NOTE: LOCAL TITLE: ORTHOPEDIC CLINIC NOTE STANDARD TITLE: ORTHOPEDIC SURGERY OUTPATIENT NOTE DATE OF NOTE: JUL 31, 2024@13:24 ENTRY DATE: JUL 31, 2024@13:24:40 AUTHOR: SHERRIE HA EXP COSIGNER: URGENCY: STATUS: COMPLETED Orthopedic Surgery Clinic Note Patient is a pleasant 68-year-old gentleman I have been following for problems with his left knee. He had a cortisone injection about a month ago that helped to provide transient relief. He does not want surgery but is looking for other options. He comes in today for follow-up. His allergies, medications, and past medical and surgical history are in the chart available for review and were reviewed. On exam today, he is a well-appearing gentleman in no acute distress. His leg lengths are equal. He had no pain with range of motion of his left hip. His knee had range from 0 to 120 degrees. He had a 1+ effusion. He had no calf tenderness and no signs of DVT. He was neurologically intact. Tenderness was diffuse. It did seem to be worse medially. Review of radiographs once again showed some mild osteopenia with some mild arthritic changes throughout. There is nothing that appears end-stage. Impression: Left knee DJD. Plan: This point options discussed. Talked about considering viscosupplementation. Will go ahead and put in a consult request for viscosupplementation he will return next week for Monovisc injection. I answered all of his questions to his satisfaction. /kallie/ SHERRIE HA ORTHOPEDIC SURGEON Signed: 07/31/2024 13:32 SHERRIE HA [facility]
--- OUTSIDE RECORDS SUMMARY | 2024-08-06 12:15 | XMS_ITS | Encounter Summary ---
Author Name [facility] [place] [facility] [place] [facility] [place] [facility] [place] Address [address] [place] [address] Care Team Providers Care Fire Alarm Operator Name Role Phone AMANDEEP PETERS Primary [...] PART A May 04, 2019 PART A [id number] KIMMIE,ALVARO ZHENGONY PATIENT MEDICARE (WNR) MEDICARE (M) PART B May 04, 2019 PART B [id number] BURKS,AN CAT PATIENT MEDICARE (WNR) MEDICARE (M) PART A October 02, 2018 PART A [id number] [phone] BURKS,AN CAT PATIENT MEDICARE (WNR) MEDICARE (M) PART B October 02, 2018 PART B [id number] [phone] KIMMIE,ALVARO CAT PATIENT Selected Encounter This section includes the information on record at [place] for the Encounter. Date/Time Encounter Type Encounter Description Reason Provider Source Aug 06, 2024 04:15 PM PT EVAL HIGH COMPLEX 45 MIN PHYSICAL THERAPY ICD-10-CM M17.9 Osteoarthritis of knee, unspecified CHUNDI,JANNETHMAD LEON [facility] Encounter Template Text not used by [place] Assessments - Encounter Diagnoses This section includes the primary and secondary diagnoses documented for the Encounter. Date/Time Primary/Secondary Diagnosis Diagnosis Name Provider Source Aug 06, 2024 05:14 PM PRIMARY Osteoarthritis of knee, unspecified [facility] Aug 06, 2024 05:14 PM SECONDARY Low back pain, unspecified CHUNDI,[facility]ADD [facility] Aug 06, 2024 05:14 PM SECONDARY Pain in left hip CHUNDI,VLADD [facility] Aug 06, 2024 05:14 PM SECONDARY Pain in left knee [facility] Aug 06, 2024 05:14 PM SECONDARY Sciatica, left side [facility] Plan of Treatment: Future Appointments (+ 6 months) and Future Tests (+/- 45 days) The Plan of Treatment section includes future care activities for the patient [facility] [place] [facility] This section includes future appointments and future orders which are active, pending or scheduled. Future Appointments This section includes appointments that were scheduled to occur 6 months from the date of the Encounter, up to a maximum of 20 appointments. The data comes from all [facility]. Appointment Date/Time Appointment Type Appointme nt Facility Name Aug 08, 2024 01:00 PM AMBULATORY - REHAB MEDICIN E [facility] Aug 12, 2024 10:45 AM AMBULATORY - REHAB MEDICIN E [facility] Aug 19, 2024 10:15 AM AMBULATORY - REHAB MEDICIN E [facility] Aug 21, 2024 01:30 PM AMBULATORY - REHAB MEDICIN E [facility] Aug 26, 2024 10:45 AM AMBULATORY - REHAB MEDICIN E [facility] Aug 28, 2024 09:30 AM AMBULATORY - REHAB MEDICIN E [facility] Aug 29, 2024 10:15 AM AMBULATORY - REHAB MEDICIN E [facility] Sep 02, 2024 01:00 PM AMBULATORY - SURGERY [facility] Sep 11, 2024 02:45 PM AMBULATORY - REHAB MEDICIN E [facility] Sep 25, 2024 10:45 AM AMBULATORY - REHAB MEDICIN E [facility] Active, Pending, and Scheduled Orders This section includes a listing of several types of active, pending, and scheduled orders, including clinic medications orders, diagnostic test orders, procedure orders and consult orders; where the start date of the order is 45 days before the date of the Encounter or 45 days after the date of theEncounter. The data comes from all [place] treatment facilities. Test Date/Time Test Type Test Details Facility Name Sep 02, 2024 12:00 AM Laboratory - Chemi stry Order OCCULT BLOOD FIT X1 SCREEN (MFP ONLY) STOOL, RANDOM FECES SP ONCE [facility] Social History: Smoking Status (Most current) and Tobacco Use (All prior to encounter date) This section includes the most current, and the historical, smoking and tobacco- related health factors from the [place] facility where the Encounter took place. Current Smoking Status This section includes the most current smoking, or tobacco-related health factor, from the [place] facility where the Encounter took place. Date/Time Current Smoking Status Comment Facil ity Feb 29, 2024 01:30 PM VA-TOBACCO QUIT 15 YRS OR MORE [facility] Tobacco Use History This section includes a history of the smoking, or tobacco-related health factors, that were collected on or before the date of the Encounter. The data comes from the [place] facility where the Encounter took place. Date/Time Smoking Status/Tobacco Use Comment F acility Feb 29, 2024 01:30 PM VA-TOBACCO QUIT 1 TO < 5 YRS [facility] Feb 29, 2024 01:30 PM VA-TOBACCO QUIT 15 YRS OR MORE [facility] Jan 03, 2023 11:30 AM VA-TOBACCO DOESNT USE WI 30 MIN WAKEUP [facility] Jan 03, 2023 11:30 AM VA-TOBACCO USE 30 YEARS OR MORE [facility] Jan 03, 2023 11:30 AM VA-TOBACCO USE ADVICE [facility] Jan 03, 2023 11:30 AM VA-TOBACCO USE MANAGER SHIFT NO [facility] Jan 03, 2023 11:30 AM VA-TOBACCO USE MED NO [facility] Jan 03, 2023 11:30 AM VA-TOBACCO USER SOME DAYS [facility] Jan 02, 2022 08:00 AM VA-TOBACCO USE 30 YEARS OR MORE [facility] Jan 02, 2022 08:00 AM VA-TOBACCO USE ADVICE [facility] Jan 02, 2022 08:00 AM VA-TOBACCO USE MANAGER SHIFT NO [facility] Jan 02, 2022 08:00 AM VA-TOBACCO USE MED NO [facility] Jan 02, 2022 08:00 AM VA-TOBACCO USE WI 30 MIN OF WAKEUP [facility] Jan 02, 2022 08:00 AM VA-TOBACCO USER EVERY DAY [facility] Feb 15, 2021 11:30 AM VA-TOBACCO USE > 1 5 LESS THAN 30 YEARS [facility] Feb 15, 2021 11:30 AM VA-TOBACCO USE ADVICE [facility] Feb 15, 2021 11:30 AM VA-TOBACCO USE MANAGER SHIFT NO [facility] Feb 15, 2021 11:30 AM VA-TOBACCO USE MED NO [facility] Feb 15, 2021 11:30 AM VA-TOBACCO USE WI 30 MIN OF WAKEUP [facility] Feb 15, 2021 11:30 AM VA-TOBACCO USER EVERY DAY [facility] Nov 13, 2018 08:15 AM VA-TOBACCO USE > 1 5 LESS THAN 30 YEARS [facility] Nov 13, 2018 08:15 AM VA-TOBACCO USE ADVICE [facility] Nov 13, 2018 08:15 AM VA-TOBACCO USE MANAGER SHIFT NO [facility] Nov 13, 2018 08:15 AM VA-TOBACCO USE MED NO [facility] Nov 13, 2018 08:15 AM VA-TOBACCO USE WI 30 MIN OF WAKEUP [facility] Nov 13, 2018 08:15 AM VA-TOBACCO USER EVERY DAY [facility] Aug 10, 2010 03:28 PM CURRENT TOBACCO USER [facility] Aug 28, 2007 09:40 AM CURRENT TOBACCO USER cigarettes 1 pack every 2 days [facility] Aug 28, 2007 09:40 AM TOBACCO QUESTIONNA ALTHEA COMPLETED [facility] Jul 16, 2006 11:25 AM CURRENT TOBACCO USER 8-12 cigs daily [facility] Advance Directives: All historical and current Section Date Range: From patient's date of to the date document was created. This section includes ALL of a patient's completed or amended [place] Advance and Rescinded Directives. The entries below indicate that a directive exists for the patient, but an actual copy is not included with this document. The data comes from all [place] facilities. Date Advance Directives Provider Source Jun 13, 2023 ADVANCE DIRECTIVE DISCUSSION VÍCTOR HAMPTON [facility] Jan 16, 2008 ADVANCE DIRECTIVE ROBERTA GARCIA [facility] Jan 16, 2008 ADVANCE DIRECTIVE RALPH DE DIOS [facility] Encounter Notes: All associated encounter notes This section contains the clinical notes associated to the Encounter. Date/Time Encounter Note(s) Provider Source Aug 06, 2024 04:19 PM PHYSICAL THERAPY C ONSULT: LOCAL TITLE: PHYSICAL THERAPY CONSULT STANDARD TITLE: PHYSICAL THERAPY CONSULT DATE OF NOTE: AUG 06, 2024@16:19 ENTRY DATE: AUG 06, 2024@16:19:43 AUTHOR: JASON POTTER EXP COSIGNER: URGENCY: STATUS: COMPLETED Diagnosis(es): Osteoarthritis of knee, unspecified (ICD-10-CM M17.9) (Primary) Pain in left knee (ICD-10-CM M25.562) Sciatica, left side (ICD-10-CM M54.32) Low back pain, unspecified (ICD-10-CM M54.50) Code(s): 61033 - x1: 60 Minutes Preferred Language: Stateless ----SUBJECTIVE Binta is agreeable to participation of evaluation by Physical Therapist. Binta is a 68 year old male presenting to outpatient therapy with an extensive history of Low Back Pain with an insidious onset. Binta reports he was scheduled for back surgery in 2019 which got cancelled because he got Covid and was not rescheduled. Rodrigo reports he was taking morphine at that time to manage his pain. Rodrigo has had cortisone injections that did not help his pain. Rodrigo completed [facility] PT recently, reports did not make much gains. Rodrigo uses TENS and Ice that helps some. Rodrigo reports left knee pain is very severe, knee gives out leading to falls. MRI showed medial meniscus tear, MCL sprain, moderate joint effusion. Loidat also has hx of left hip pain. Binta denies history of Cancer, Pacemaker, which qualifies for use of modality if appropriate. 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 Correlation with clinical findings is suggested. L hip x-ray Impression: FINDINGS/IMPRESSION: Normal alignment is maintained the left hip. No acute left hip fracture. Mild degenerative changes of the left hip. Insertional enthesopathy at the left greater trochanter. Visualized pelvic bones are intact. No evidence of osteonecrosis of the left femoral head. CT L spine Impression: -No acute lumbar vertebral abnormality -Severe central canal stenosis at L2/L3, L3/L4 and L4/L5 and moderate-severe at L5/S1. -The greatest degree of foraminal narrowing is seen at L5/S1 where it is severe on the right and moderate-severe on the left. PRIOR MEDICAL HISTORY: -COPD, hypertensive heart disease, TIA, osteoporosis. 'S GOAL(S): -To reduce Low Back/knee/hip pain and increase activity tolerance PAIN: -Severity: MODERATE/SEVERE -Frequency: Recurring, Chronic -Location: L knee -Current: 02/11 -Location: LBP -Current: -10/11 FALL HISTORY: -[place] reports several fall(s) in the past year before getting the walker. ---OBJECTIVE seen in Outpatient Physical Therapy x60 minutes for initial evaluation. POSTURE: 1) Rounded Shoulders 2) Head Forward 3) leaning laterally to the left and slight fwd trunk flexion Integumentary: WNL Cardiovascular/Pulmonary: No SOB, coughing or wheezing observed at rest Gastrointestinal: No recent reports of difficulty swallowing, vomiting or change in stools Genitourinary: Denies loss of control of BB or pain with voiding Neurological: No recent LOC, vision changes, or memory issues reported. ED-Denies: Depression/anxiety:- Denies desire to harm self or others, periods of hopelessness/depression, and thought/ideations of suicide. Informed of services available through providers, emergency treatment, and [place] Crisis line. MANUAL MUSCLE TEST: Right Left -Hip Flexion 5/5 3+/5 -Hip Abduction 5/5 3+/5 -Hip Adduction 5/5 3+/5 -Knee Flexion 5/5 3+/5 -Knee Extension 5/5 3+/5 -Ankle Plantarflexion 5/5 4-/5 -Ankle Dorsiflexion 5/5 4-/5 -Transversus Abdominis 3+/4 RANGE OF MOTION: Normal Thoracolumbar AROM (degrees C7-S1) -Flexion 30 % 90 -Extension 30 % 30 -Side Bending 40 % 30 % 30 -Rotation 40 % 30 % 30 Bilateral Lower Extremities (degrees) Positioned in Supine -Hip Flexion 110 100 125 -Hip Internal Rotation 30 25 45 -Hip External Rotation 35 30 45 -Knee WNL NT secondary pain GAIT: - ambulating with a 4WW, pushes walker too far forward, leaning laterally to the left, decreased swing through gait pattern. SPECIAL TESTS: -Slump Test (-) (+) -ALEN (-) (+) -Valgus Stress Test (-) (+) -Varus Stress Test (-) (-) -McMurreys (-) (+) PALPATION: 1)Hypertonicity of paraspinals throughout Lumbar Spine. 2)Mild tenderness noted over bilateral paraspinals throughout Lumbar Spine. THERAPEUTIC EXERCISE/HOME EXERCISE PROGRAM: To improve mobility & pain. Access Code: [email or web address] URL: [email or web address] Date: 08/08/2024 Prepared by: Nikhil Exercises - Seated Flexion Stretch with [place]orran Ball - 1 x daily - 7 x weekly - 3 sets - 10 reps - Seated Thoracic Flexion and Rotation with [place]orran Ball - 1 x daily - 7 x weekly - 3 sets - 10 reps - Supine Lumbar Rotation with [place] Ball - 1 x daily - 7 x weekly - 3 sets - 10 reps - Supine Hip and Knee Flexion AROM with [place]orran Ball - 1 x daily - 7 x weekly - 3 sets - 10 reps SELF CARE/EDUCATION: educated on the role of Physical Therapy to improve function and quality of life by developing active coping strategies to reduce the impact of pain on the patient's life. was educated on the fear avoidance model pertaining to kinesiophobia and how to break this cycle by incorporating exercises that may increase discomfort but still within tolerance. [place] education on anatomy, physiology, prognosis and diagnosis of condition. WESTERN ALBERTA AND CIRA OSTEOARTHRITIS INDEX (WOMAC) 0 - None 1 - Slight 2 - Moderate 3 - Severe 4 - Extreme Rate your pain when... Walking 3 Climbing stairs 4 Sleeping at night 3 Resting 2 Standing 3 Rate your stiffness in the... Morning 4 Evening 4 Rate your difficulty when... Descending Stairs 4 Ascending Stairs 4 Rising from sitting 3 Standing 2 Bending to floor 4 Walking on even floor 1 Getting in/out of car 3 Going shopping 4 Putting on socks 4 Rising from bed 3 Taking off socks 3 Lying in bed 3 Getting in/out of bath 4 Sitting 2 Getting on/off toilet 2 Doing light domestic duties (cooking, dusting) 2 Doing heavy domestic duties (moving furniture) 4 TOTAL: 75/96 -Higher scores on the WOMAC indicate worse pain, stiffness, & functional limitations. -Minimally Clinically Important Difference (MCID): 9.1 -Minimally Detectable Change (MDC): 9.1 ------ASSESSMENT Vet c/o left knee medial meniscus tear, MCL sprain; L hip insertional enthesopathy at the left greater trochanter; Severe central canal stenosis at L2/L3, L3/L4 and L4/L5 and moderate-severe at L5/S1 and greatest degree of foraminal narrowing at L5/S1 where it is severe on the right and moderate-severe on the left. [place] scored 75/96 on the WOMAC; higher scores on the WOMAC indicate worse pain, stiffness, & functional limitations. [place] demonstrates deficits in lumbar spine & hip range of motion, functional strength, balance, and Low Back Pain. Physical therapy is medically necessary based on 's deficits and functional limitations. Binta is a good candidate for skilled PT services and has consented to undergo initial evaluation and subsequent treatment. [place] is appropriate to undergo skilled physical therapy services by a manager physical. issued home exercise program; patient verbalized understanding in 's preferred language Stateless. PROGNOSIS: Fair/Good based on findings in evaluation. SHORT TERM GOAL(S) - 2-4 Weeks (1) will be independent in home exercise program to reduce pain and improve range of motion. (2)[place] will increase Transversus Abdominis score by 1/2 grade to improve lumbar stability and posture. (3) will increase involved knee strength by 1/2 grade to increase knee stability. GROUP HOME GOAL(S) - 4-6 Weeks (1) [place] will report no more than 3/10 max Low Back Pain to stand for prolong period of time. (2) [place] will increase Transversus Abdominis score by 1 grade to improve lumbar stability and posture. (3)[place] will increase involved knee strength by 1 grade to increase knee stability. (4) [place] will increase Lumbar range of motion by 25% overall to improve mobility. (5) will decrease WOMAC score by 9 points to increase Quality of Life. ---------PLAN Skilled physical therapy 1x per week for 6-8 weeks to improve strength, endurance, balance, assess understanding of home exercise program, decrease pain, and increase overall function. Physical therapy plan of care may include therapeutic exercise, gait training, therapeutic activities, neuromuscular re- education, patient education, manual therapy, modalities as needed (electrical stimulation, transcutaneous electrical nerve stimulation (TENS), ice/heat, Ultrasound, anodyne light therapy, and iontophoresis). [place] explained plan of care and agrees to plan of care. NEXT VISIT: (1)Initiate home exercise program and progress as tolerated to improve strength and range of motion- core,glut,quad, HS strength (2)Modalities as indicated to modulate pain- [place] Mitouch (3)Manual therapy- Left knee mobilization and soft tisse work /es/ JASON POTTER PHYSICAL THERAPIST Signed: 08/08/2024 11:02 JASON POTTER [facility]
--- OUTSIDE RECORDS SUMMARY | 2024-08-08 09:00 | XMS_ITS ---
Author Name [facility] [place] Address [address] [place] [address] Care Team Providers Care Sales Representative Adding Machines Name Role Phone AMANDEEP PETERS Primary Care [...] PART A May 04, 2019 PART A [id number] KIMMIE,AN CAT PATIENT MEDICARE (WNR) MEDICARE (M) PART B May 04, 2019 PART B [id number] BURKS,AN CAT PATIENT MEDICARE (WNR) MEDICARE (M) PART A October 02, 2018 PART A [id number] [phone] BURKS,AN CAT PATIENT MEDICARE (WNR) MEDICARE (M) PART B October 02, 2018 PART B [id number] KIMMIE,ALVARO CAT PATIENT Selected Encounter This section includes the information on record at [place] for the Encounter. Date/Time Encounter Type Encounter Description Reason Provider Source Aug 08, 2024 01:00 PM APPL MODALITY 1+ESTIM EA 15 PHYSICAL THERAPY ICD-10-CM M17.9 Osteoarthritis of knee, unspecified LULUSHERRYJoshuaVLADCarla QUINTERO Ana Laura Encounter Template Text not used by [place] Assessments - Encounter Diagnoses This section includes the primary and secondary diagnoses documented for the Encounter. Date/Time Primary/Secondary Diagnosis Diagnosis Name Provider Source Aug 08, 2024 01:56 PM PRIMARY Osteoarthritis of knee, unspecified [facility]ING,[facility] Aug 08, 2024 01:56 PM SECONDARY Low back pain, unspecified NEARING,[facility] Aug 08, 2024 01:56 PM SECONDARY Pain in left hip NEARING,[facility] Aug 08, 2024 01:56 PM SECONDARY Pain in left knee NEARING,[facility] Aug 08, 2024 01:56 PM SECONDARY Sciatica, left side NEARING,[facility] Plan of Treatment: Future Appointments (+ 6 months) and Future Tests (+/- 45 days) The Plan of Treatment section includes future care activities for the patient from all [place] [facility]. This section includes future appointments and future orders which are active, pending or scheduled. Future Appointments This section includes appointments that were scheduled to occur 6 months from the date of the Encounter, up to a maximum of 20 appointments. The data comes from all [facility]. Appointment Date/Time Appointment Type Appointme nt Facility Name Aug 12, 2024 10:45 AM AMBULATORY - [facility] Aug 19, 2024 10:15 AM AMBULATORY - [facility]AB [facility] Aug 21, 2024 01:30 PM AMBULATORY - [facility]AB [facility]IC[facility] Aug 26, 2024 10:45 AM AMBULATORY - REHAB MEDICIN [facility] Aug 28, 2024 09:30 AM AMBULATORY - REHAB [facility]IC[facility] Aug 29, 2024 10:15 AM AMBULATORY - REHAB [facility]ICIN [facility] Sep 02, 2024 01:00 PM AMBULATORY - [facility]GERY [facility] Sep 11, 2024 02:45 PM AMBULATORY - REHAB MEDICIN [facility] Sep 25, 2024 10:45 AM AMBULATORY - REHAB MEDICIN [facility] Active, Pending, and Scheduled Orders This section includes a listing of several types of active, pending, and scheduled orders, including clinic medications orders, diagnostic test orders, procedure orders and consult orders; where the start date of the order is 45 days before the date of the Encounter or 45 days after the date of theEncounter. The data comes from all [place] treatment facilities. Test Date/Time Test Type Test Details Facility Name Sep 02, 2024 12:00 AM Laboratory - Chemi stry Order OCCULT BLOOD FIT X1 SCREEN (MFP ONLY) STOOL, RANDOM FECES SP ONCE [facility] Advance Directives: All historical and current [...] 13, 2023 ADVANCE DIRECTIVE DISCUSSION VÍCTOR HAMPTON [facility] Jan 16, 2008 ADVANCE DIRECTIVE ROBERTA GARCIA [facility] Jan 16, 2008 ADVANCE DIRECTIVE RALPH DE DIOS [facility] Encounter Notes: All associated encounter notes This section contains the clinical notes associated to the Encounter. Date/Time Encounter Note(s) Provider Source Aug 08, 2024 08:11 AM PHYSICAL THERAPY N OTE: LOCAL TITLE: PHYSICAL THERAPY NOTE STANDARD TITLE: PHYSICAL THERAPY NOTE DATE OF NOTE: AUG 08, 2024@08:11 ENTRY DATE: AUG 08, 2024@08:11:40 AUTHOR: KRISTYN CARDOZA COSIGNER: JASON POTTER URGENCY: STATUS: COMPLETED Osteoarthritis of knee, unspecified (ICD-10-CM M17.9) Pain in left knee (ICD-10-CM M25.562) Sciatica, left side (ICD-10-CM M54.32) Low back pain, unspecified (ICD-10-CM M54.50) Pain in left Hip (ICD-10-CM M25.552) Electrical Stimulation, Attended, 30min S: Pt report low back, tight, pain 3/10. L knee tight, stiff, and locking up, pain 7/10. L hip sore, pain 2/10. Chief Complaint: L knee Patient denies any personal history of Cancer. Patient denies having a pacemaker. Patient reports current pain level of: 7/10 Pain level reported after Mediliev Touch trial completed: 10/11 O: Pt arrived to 2nd therapy apt. HEP: Access Code: [email or web address] Nurokor Mediliev Touch UNIT EDUCATION: Pt treatment and educated in purpose, care, and proper application of Nurokor Mediliev Touch unit to indicated painful areas. A: Pt had reduced pain after Nurokor Mediliev Touch unit. Pt tolerating treatment without increased symptoms. SHORT TERM GOAL(S) - 2-4 Weeks (1) [place] will be independent in home exercise program to reduce pain and improve range of motion. (2) [place] will increase Transversus Abdominis score by 1/2 grade to improve lumbar stability and posture. (3) [place] will increase involved knee strength by 1/2 grade to increase knee stability. JEWELRY INTERNSHIP GOAL(S) - 4-6 Weeks (1) will report no more than 3/10 max Low Back Pain to stand for prolong period of time. (2) [place] will increase Transversus Abdominis score by 1 grade to improve lumbar stability and posture. (3) will increase involved knee strength by 1 grade to increase knee stability. (4) will increase Lumbar range of motion by 25% overall to improve mobility. (5) will decrease WOMAC score by 9 points to increase Quality of Life. P: Skilled physical therapy 1x per week for 6-8 weeks to improve strength, endurance, balance, assess understanding of home exercise program, decrease pain, and increase overall function. Physical therapy plan of care may include therapeutic exercise, gait training, therapeutic activities, neuromuscular re- education, patient education, manual therapy, modalities as needed (electrical stimulation, transcutaneous electrical nerve stimulation (TENS), ice/heat, Ultrasound, anodyne light therapy, and iontophoresis). NEXT VISIT: (1) Initiate home exercise program and progress as tolerated to improve strength and range of motion- core, glut, quad, HS strength (2) Modalities as indicated to modulate pain- Nurokor Mitouch (3) Manual therapy- Left knee mobilization and soft tisse work /es/ KRISTYN CARDOZA PTA MEDICAL BILLING ASSOCIATE Signed: 08/08/2024 13:56 /es/ JASON POTTER PHYSICAL THERAPIST Cosigned: 08/08/2024 14:03 KRISTYN CARDOZA [facility]
--- OUTSIDE RECORDS SUMMARY | 2024-08-12 06:45 | XMS_ITS | Encounter Summary ---
Author Name [place] Organization [place] Address [address] [place] [id number] Care Team Providers Care Soil Conservation Aide Name Role Phone AMANDEEP PETERS Primary Care [...] PART A May 04, 2019 PART A [id number] BURKS,ALVARO ZHENGONY PATIENT MEDICARE (WNR) MEDICARE (M) PART B May 04, 2019 PART B [id number] BURKS,AN CAT PATIENT MEDICARE (WNR) MEDICARE (M) PART A October 02, 2018 PART A [id number] BURKS,AN CAT PATIENT MEDICARE (WNR) MEDICARE (M) PART B October 02, 2018 PART B [id number] [id number] [phone] KIMMIE,ALVARO CAT PATIENT Selected Encounter This section includes the information on record at [place] for the Encounter. Date/Time Encounter Type Encounter Description Reason Provider Source Aug 12, 2024 10:45 AM THERAPEUTIC EXERCISES PHYSICAL THERAPY ICD-10-CM M17.9 Osteoarthritis of knee, unspecified LALITAJoshuaVLADCarla QUINTERO Ana Laura Encounter Template Text not used by [place] Assessments - Encounter Diagnoses This section includes the primary and secondary diagnoses documented for the Encounter. Date/Time Primary/Secondary Diagnosis Diagnosis Name Provider Source Aug 12, 2024 12:27 PM PRIMARY Osteoarthritis of knee, unspecified [facility] Aug 12, 2024 12:27 PM SECONDARY [facility], [facility] Aug 12, 2024 12:27 PM SECONDARY Pain in left hip [facility] Aug 12, 2024 12:27 PM SECONDARY Pain in left knee [facility] Aug 12, 2024 12:27 PM SECONDARY Sciatica, [facility] Plan of Treatment: Future Appointments (+ 6 months) and Future Tests (+/- 45 days) The Plan of Treatment section includes future care activities for the patient from all [place] [facility]. This section includes future appointments and future orders which are active, pending or scheduled. Future Appointments This section includes appointments that were scheduled to occur 6 months from the date of the Encounter, up to a maximum of 20 appointments. The data comes from all [facility] facilities. Appointment Date/Time Appointment Type Appointme nt Facility Name Aug 19, 2024 10:15 AM AMBULATORY - RE[facility]AB MEDIC[facility] Aug 21, 2024 01:30 PM AMBULATORY - REHAB MEDICIN [facility] Aug 26, 2024 10:45 AM AMBULATORY - REHAB MEDICIN [facility] Aug 28, 2024 09:30 AM AMBULATORY - REHAB MEDICIN [facility] Aug 29, 2024 10:15 AM AMBULATORY - REHAB MEDICIN [facility] Sep 02, 2024 01:00 PM AMBULATORY - SURGERY [facility] Sep 11, 2024 02:45 PM AMBULATORY - REHAB MEDICIN [facility] Sep 25, 2024 10:45 [facility] Active, Pending, and Scheduled Orders This section includes a listing of several types of active, pending, and scheduled orders, including clinic medications orders, diagnostic test orders, procedure orders and consult orders; where the start date of the order is 45 days before the date of the Encounter or 45 days after the date of theEncounter. The data comes from all [place] treatment facilities. Test Date/Time Test Type Test Details Facility Name Sep 02, 2024 12:00 AM Laboratory - Chemi stry Order OCCULT BLOOD FIT X1 SCREEN (MFP ONLY) STOOL, RANDOM FECES SP ONCE [facility] Advance Directives: All historical and current Section Date Range: From patient's date of to the date document was created. This section includes ALL of a patient's completed or amended [place] Advance and Rescinded Directives. The entries below indicate that a directive exists for the patient, but an actual copy is not included with this document. The data comes from all [place] facilities. Date Advance Directives Provider Source Jun 13, 2023 ADVANCE DIRECTIVE DISCUSSION VÍCTOR HAMPTON [facility] Jan 16, 2008 ADVANCE DIRECTIVE ROBERTA GARCIA [facility] Jan 16, 2008 ADVANCE DIRECTIVE RALPH DE DIOS [facility] Encounter Notes: All associated encounter notes This section contains the clinical notes associated to the Encounter. Date/Time Encounter Note(s) Provider Source Aug 12, 2024 07:45 AM PHYSICAL THERAPY N OTE: LOCAL TITLE: PHYSICAL THERAPY NOTE STANDARD TITLE: PHYSICAL THERAPY NOTE DATE OF NOTE: AUG 12, 2024@07:45 ENTRY DATE: AUG 12, 2024@07:45:21 AUTHOR: KRISTYN CARDOZA COSIGNER: JASON POTTER URGENCY: STATUS: COMPLETED Osteoarthritis of knee, unspecified (ICD-10-CM M17.9) Pain in left knee (ICD-10-CM M25.562) Sciatica, left side (ICD-10-CM M54.32) Low back pain, unspecified (ICD-10-CM M54.50) Pain in left Hip (ICD-10-CM M25.552) Ther-ex, 30min S: Pt report low back, tight, pain 3/10. L knee tight, stiff, and locking up, pain 7/10. L hip sore, pain 2/10, increase pain w/ walking. HEP forgot about them. Maury Michelle Touch help to about the car, (5min). O: Pt arrived to 2nd therapy apt. HEP: Access Code: [email or web address] URL: [email or web address] Date: 08/12/2024 Prepared by: Adali Program Notes PT? #[phone] ext. [phone] Exercises - Seated Transversus Abdominis Bracing - 25 x daily - Seated Flexion Stretch with Nigerien Ball - 1 x daily - 7 x weekly - 3 sets - 10 reps - Seated Thoracic Flexion and Rotation with Nigerien Ball - 1 x daily - 7 x weekly - 3 sets - 10 reps - Supine Lumbar Rotation with Nigerien Ball - 1 x daily - 7 x weekly - 3 sets - 10 reps - Supine Hip and Knee Flexion AROM with [place]ien Ball - 1 x daily - 7 x weekly - 3 sets - 10 reps - Seated Knee Extension with Resistance - 1 x daily - 7 x weekly - 3 sets - 10 reps - Seated Hip Abduction with Resistance - 1 x daily - 7 x weekly - 3 sets - 10 reps - Seated Hamstring Stretch - 1 x daily - 10 reps - 30 sec hold - Seated Piriformis Stretch - 1 x daily - 10 reps - 30 sec hold - Seated Hip External Rotation Stretch - 1 x daily - 10 reps - 30 sec hold - Seated Piriformis Stretch with [place] - 1 x daily - 10 reps - 30 5sec hold Patient Education - Piriformis Syndrome Pt required min verbal/tactile cuing to attain performance of exercises with adequate technique. Pt was provided with written handout/instructional material reinforcing self-care. Issued size 6 Geuntrain knee brace. A: Pt tolerating treatment without increased symptoms. SHORT TERM GOAL(S) - 2-4 Weeks (1) will be independent in home exercise program to reduce pain and improve range of motion. (2) [place] will increase Transversus Abdominis score by 1/2 grade to improve lumbar stability and posture. (3) [place] will increase involved knee strength by 1/2 grade to increase knee stability. CORRECTION GOAL(S) - 4-6 Weeks (1) will report no more than 3/10 max Low Back Pain to stand for prolong period of time. (2) will increase Transversus Abdominis score by 1 grade to improve lumbar stability and posture. (3)[place] will increase involved knee strength by 1 grade to increase knee stability. (4) [place] will increase Lumbar range of motion by 25% overall to improve mobility. (5) [place] will decrease WOMAC score by 9 points [...] ice/heat, Ultrasound, anodyne light therapy, and iontophoresis). CONT. NEXT VISIT: (1) Initiate home exercise program and progress as tolerated to improve strength and range of motion- core, glut, quad, HS strength (2) Modalities as indicated to modulate pain- Nurokor Mitouch (3) Manual therapy- Left knee mobilization and soft tissue work /kallie/ KRISTYN CARDOZA PTA GAS APPLIANCE SERVICER HELPER Signed: 08/12/2024 12:28 /kallie/ JASON POTTER PHYSICAL THERAPIST Cosigned: 08/13/2024 08:44 KRISTYN CARDOZA [facility]
--- OUTSIDE RECORDS SUMMARY | 2024-08-19 06:15 | XMS_ITS ---
Author Name [place] Address [address] [place] [address] Care Team Providers Care Labor Relations Officer Name Role Phone AMANDEEP PETERS Primary Care [...] PART A May 04, 2019 PART A [id number] KIMMIE,AN CAT PATIENT MEDICARE (WNR) MEDICARE (M) PART B May 04, 2019 PART B [id number] BURKS,AN CAT PATIENT MEDICARE (WNR) MEDICARE (M) PART A October 02, 2018 PART A [id number] [phone] BURKS,AN CAT PATIENT MEDICARE (WNR) MEDICARE (M) PART B October 02, 2018 PART B [id number] [phone] KIMMIE,ALVARO CAT PATIENT Selected Encounter This section includes the information on record at [place] for the Encounter. Date/Time Encounter Type Encounter Description Reason Provider Source Aug 19, 2024 10:15 AM APPL MODALITY 1+ESTIM EA 15 PHYSICAL THERAPY ICD-10-CM M17.9 Osteoarthritis of knee, unspecified LULUSHERRYJoshuaVLADCarla QUINTERO Ana Laura Encounter Template Text not used by [place] Assessments - Encounter Diagnoses This section includes the primary and secondary diagnoses documented for the Encounter. Date/Time Primary/Secondary Diagnosis Diagnosis Name Provider Source Aug 19, 2024 01:16 PM PRIMARY Osteoarthritis of knee, unspecified NEARING,[facility] Aug 19, 2024 01:16 PM SECONDARY Low back pain, unspecified NEARING,[facility] Aug 19, 2024 01:16 PM SECONDARY Pain in left hip NEARING,[facility] Aug 19, 2024 01:16 PM SECONDARY Pain in left knee NEARING,[facility] Aug 19, 2024 01:16 PM SECONDARY Sciatica, left side NEARING,[facility] Plan of Treatment: Future Appointments (+ 6 months) and Future Tests (+/- 45 days) The Plan of Treatment section includes future care activities for the patient from all [place] [facility]. This section includes future appointments and future orders which are active, pending or scheduled. Future Appointments This section includes appointments that were scheduled to occur 6 months from the date of the Encounter, up to a maximum of 20 appointments. The data comes from all [place] treatment facilities. Appointment Date/Time Appointment Type Appointme nt Facility Name Aug 21, 2024 01:30 PM AMBULATORY - REHAB MEDICIN [facility] Aug 26, 2024 10:45 AM AMBULATORY - REHAB MEDICIN [facility] Aug 28, 2024 09:30 AM AMBULATORY - REHAB MEDICIN [facility] Aug 29, 2024 10:15 AM AMBULATORY - REHAB MEDICIN [facility] Sep 02, 2024 01:00 PM AMBULATORY - SURGERY [facility] Sep 11, 2024 02:45 PM AMBULATORY - REHAB MEDICIN [facility] Sep 25, 2024 10:45 [facility] Active, Pending, and Scheduled Orders This section includes a listing of several types of active, pending, and scheduled orders, including clinic medications orders, diagnostic test orders, procedure orders and consult orders; where the start date of the order is 45 days before the date of the Encounter or 45 days after the date of theEncounter. The data comes from all [place] treatment facilities. Test Date/Time Test Type Test Details Facility Name Sep 02, 2024 12:00 AM Laboratory - Chemi stry Order OCCULT BLOOD FIT X1 SCREEN (MFP ONLY) STOOL, RANDOM FECES SP ONCE [facility] Advance Directives: All historical and current Section Date Range: From patient's date of to the date document was created. This section includes ALL of a patient's completed or amended [place] Advance and Rescinded Directives. The entries below indicate that a directive exists for the patient, but an actual copy is not included with this document. The data comes from all [place] facilities. Date Advance Directives Provider Source Jun 13, 2023 ADVANCE DIRECTIVE DISCUSSION VÍCTOR HAMPTON [facility] Jan 16, 2008 ADVANCE DIRECTIVE ROBERTA GARCIA [facility] Jan 16, 2008 ADVANCE DIRECTIVE RALPH DE DIOS [facility] Encounter Notes: All associated encounter notes This section contains the clinical notes associated to the Encounter. Date/Time Encounter Note(s) Provider Source Aug 19, 2024 07:20 AM PHYSICAL THERAPY N OTE: LOCAL TITLE: PHYSICAL THERAPY NOTE STANDARD TITLE: PHYSICAL THERAPY NOTE DATE OF NOTE: AUG 19, 2024@07:20 ENTRY DATE: AUG 19, 2024@07:20:53 AUTHOR: KRISTYN CARDOZA COSIGNER: JASON POTTER URGENCY: [...] pain 2/10, increase pain w/ walking. HEP some of them increase the pain. L knee RS-4i Patient reports current pain level of: 7/10 Pain level reported after Mediliev Touch trial completed: 10/11 O: Pt arrived to 4th therapy apt. HEP: Access Code: [email or web address] Exercises - Seated Transversus Abdominis Bracing - 25 x daily - Seated Flexion Stretch with [place] Ball - 1 x daily - 7 x weekly - 3 sets - 10 reps - Seated Thoracic Flexion and Rotation with [place] Ball - 1 x daily - 7 x weekly - 3 sets - 10 reps - Supine Lumbar Rotation with [place] Ball - 1 x daily - 7 x weekly - 3 sets - 10 reps - Supine Hip and Knee Flexion AROM with [place] Ball - 1 x daily - 7 [...] provided with written handout/instructional material reinforcing self-care. RS-4i UNIT EDUCATION: Pt treatment and educated in purpose, care, and proper application of Smashburgeror Mediliev Touch unit to indicated painful areas. A: Pt had reduced pain after RS-4i unit. Pt tolerating treatment without increased symptoms. SHORT TERM GOAL(S) - 2-4 Weeks (1) [place] will be independent in home exercise program to reduce pain and improve range of motion. (2) [place] will increase Transversus Abdominis score by 1/2 grade to improve lumbar stability and posture. (3) will increase involved knee strength by 1/2 grade to increase knee stability. SHELTER GOAL(S) - 4-6 Weeks (1) will report no more than 3/10 max Low Back Pain to stand for prolong period of time. (2) will increase Transversus Abdominis score by 1 grade to improve lumbar stability and posture. (3) will increase involved knee strength by 1 grade to increase knee stability. (4) [place] will increase Lumbar range of motion by [...] (TENS), ice/heat, Ultrasound, anodyne light therapy, and iontophoresis+). CONT. NEXT VISIT: (1) Initiate home exercise program and progress as tolerated to improve strength and range of motion- core, glut, quad, HS strength (2) Modalities as indicated to modulate pain- Nurokor Mitouch (3) Manual therapy- Left knee mobilization and soft tissue work /es/ KRISTYN CARDOZA PTA SHANK PIECE TACKER Signed: 08/19/2024 13:17 /kallie/ JASON POTTER PHYSICAL THERAPIST Cosigned: 08/19/2024 16:03 KRISTYN CARDOZA [facility]
--- OUTSIDE RECORDS SUMMARY | 2024-08-21 09:30 | XMS_ITS ---
Author Name [facility] [place] [facility] [place] Address [address] [place] [address] Care Team Providers Care Nursing Assistant Name Role Phone AMANDEEP PETERS Primary [...] PART A May 04, 2019 PART A [id number] KIMMIE,AN CAT PATIENT MEDICARE (WNR) MEDICARE (M) PART B May 04, 2019 PART B [id number] BURKS,AN CAT PATIENT MEDICARE (WNR) MEDICARE (M) PART A October 02, 2018 PART A [id number] [phone] BURKS,AN CAT PATIENT MEDICARE (WNR) MEDICARE (M) PART B October 02, 2018 PART B [id number] [phone] KIMMIE,ALVARO CAT PATIENT Selected Encounter This section includes the information on record at [place] for the Encounter. Date/Time Encounter Type Encounter Description Reason Provider Source Aug 21, 2024 01:30 PM APPL MODALITY 1+ESTIM EA 15 PHYSICAL THERAPY ICD-10-CM M17.9 Osteoarthritis of knee, unspecified DARSHANA POTTER Ana Laura Encounter Template Text not used by [place] Assessments - Encounter Diagnoses This section includes the primary and secondary diagnoses documented for the Encounter. Date/Time Primary/Secondary Diagnosis Diagnosis Name Provider Source Aug 21, 2024 02:21 PM PRIMARY Osteoarthritis of knee, unspecified [facility] Aug 21, 2024 02:21 PM SECONDARY Low back pain, unspecified [facility] Aug 21, 2024 02:21 PM SECONDARY Pain in left hip NEARING,[facility] Aug 21, 2024 02:21 PM SECONDARY Pain in left knee NE[facility]ING,[facility] Aug 21, 2024 02:21 PM SECONDARY Sciatica, left side [facility]ING,[facility] Plan of Treatment: Future Appointments (+ 6 months) and Future Tests (+/- 45 days) The Plan of Treatment section includes future care activities for the patient from all [place] [facility]. This section includes future appointments and future orders which are active, pending or scheduled. Future Appointments This section includes appointments that were scheduled to occur 6 months from the date of the Encounter, up to a maximum of 20 appointments. The data comes from all [facility]. Appointment Date/Time Appointment Type Appointme nt Facility Name Aug 26, 2024 10:45 AM AMBULATORY - REHAB [facility]ICIN [facility] Aug 28, 2024 09:30 AM AMBULATORY - REHAB MEDIC[facility] Aug 29, 2024 10:15 AM AMBULATORY - REHAB MEDICIN [facility] Sep 02, 2024 01:00 PM AMBULATORY - SURGERY [facility] Sep 11, 2024 02:45 PM AMBULATORY - REHAB MEDICIN [facility] Sep 25, 2024 10:45 AM AMBULATORY - REHAB MEDICIN [facility] Active, Pending, and Scheduled Orders This section includes a listing of several types of active, pending, and scheduled orders, including clinic medications orders, diagnostic test orders, procedure orders and consult orders; where the start date of the order is 45 days before the date of the Encounter or 45 days after the date of theEncounter. The [facility] comes [facility]. Test Date/Time Test Type Test Details Facility Name Sep 02, 2024 12:00 AM Laboratory - Chemi stry Order OCCULT BLOOD FIT X1 SCREEN (MFP ONLY) STOOL, RANDOM FECES SP ONCE [facility] Advance Directives: All historical and current Section Date Range: From patient's date of to the date document was created. This section includes ALL of a patient's completed or amended [place] Advance and Rescinded Directives. The entries below indicate that a directive exists for the patient, but an actual copy is not included with this document. The data comes from all [place] facilities. Date Advance Directives Provider Source Jun 13, 2023 ADVANCE DIRECTIVE DISCUSSION VÍCTOR HAMPTON [facility] Jan 16, 2008 ADVANCE DIRECTIVE ROBERTA GARCIA [facility] Jan 16, 2008 ADVANCE DIRECTIVE RALPH DE DIOS [facility] Encounter Notes: All associated encounter notes This section contains the clinical notes associated to the Encounter. Date/Time Encounter Note(s) Provider Source Aug 21, 2024 07:43 AM PHYSICAL THERAPY N OTE: LOCAL TITLE: PHYSICAL THERAPY NOTE STANDARD TITLE: PHYSICAL THERAPY NOTE DATE OF NOTE: AUG 21, 2024@07:43 ENTRY DATE: AUG 21, 2024@07:43:50 AUTHOR: KRISTYN CARDOZA COSIGNER: JASON POTTER URGENCY: [...] HEP some of them increase the pain. Had about 2 hours of relief after last visit. Had a fall after getting out of car. L knee RS-4i Patient reports current pain level of: 7/10 Pain level reported after Mediliev Touch trial completed: 10/11 O: Pt arrived to 5th therapy apt. HEP: Access Code: [email or web address] Exercises - Seated Transversus Abdominis Bracing - 25 x daily - Seated Flexion Stretch with Jordanian Ball - 1 x daily - 7 x weekly - 3 sets - 10 reps - Seated Thoracic Flexion and Rotation with Jordanian Ball - 1 x daily - 7 x weekly - 3 sets - 10 reps - Supine Lumbar Rotation with Jordanian Ball - 1 x daily - 7 x weekly - 3 sets - 10 reps - Supine Hip and Knee Flexion AROM with Jordanian Ball - 1 x daily - 7 [...] - 10 reps - 30 5sec hold Pt required min verbal/tactile cuing to attain performance of exercises with adequate technique. RS-4i UNIT EDUCATION: Pt treatment and educated in purpose, care, and proper application of Wellcoinor Videologyliev Touch unit to indicated painful areas. A: Pt had reduced pain after RS-4i unit. Pt tolerating treatment without increased symptoms. Pt would benefit from Ortho apt. SHORT TERM GOAL(S) - 2-4 Weeks (1) will be independent in home exercise program to reduce pain and improve range of motion. (2) [place] will increase Transversus Abdominis score by 1/2 grade to improve lumbar stability and posture. (3) [place] will increase involved knee strength by 1/2 grade to increase knee stability. CUSTODIAL GOAL(S) - 4-6 Weeks (1) [place] will report no more than 3/10 max Low Back Pain to stand for prolong period of time. (2) [place] will increase Transversus Abdominis score by 1 grade to improve lumbar stability and posture. (3)[place] will increase involved knee strength by 1 grade to increase knee stability. (4) [place] will increase Lumbar range of motion by [...] soft tissue work /es/ KRISTYN CARDOZA PTA COMPRESSOR MECHANIC BUS Signed: 08/21/2024 14:21 /kallie/ JASON POTTER PHYSICAL THERAPIST Cosigned: 08/21/2024 15:17 KRISTYN CARDOZA [facility]
--- OUTSIDE RECORDS SUMMARY | 2024-08-26 06:45 | XMS_ITS | Encounter Summary ---
Author Name [facility] [place] [facility] [place] Address [address] [place] [address] Care Team Providers Care Dietetic Technician Registered Name Role Phone AMANDEEP PETERS Primary Care [...] PART A May 04, 2019 PART A [id number] BURKS,AN CAT PATIENT MEDICARE (WNR) MEDICARE (M) PART B May 04, 2019 PART B [id number] BURKS,AN CAT PATIENT MEDICARE (WNR) MEDICARE (M) PART A October 02, 2018 PART A [id number] BURKS,AN CAT PATIENT MEDICARE (WNR) MEDICARE (M) PART B October 02, 2018 PART B [id number] KIMMIE,ALVARO CAT PATIENT Selected Encounter This section includes the information on record at [place] for the Encounter. Date/Time Encounter Type Encounter Description Reason Provider Source Aug 26, 2024 10:45 AM MANUAL THERAPY 1/> [facility] ICD-10-CM M17.9 Osteoarthritis of knee, unspecified LALITAJoshuaVLADCarla [facility]ON [facility] Encounter Template Text not used by [place] Assessments - Encounter Diagnoses This section includes the primary and secondary diagnoses documented for the Encounter. Date/Time Primary/Secondary Diagnosis Diagnosis Name Provider Source Aug 26, 2024 11:53 AM PRIMARY Osteoarthritis of knee, unspecified [facility] Aug 26, 2024 11:53 AM SECONDARY Low back pain, unspecified [facility]ING,[facility] Aug 26, 2024 11:53 AM SECONDARY Pain in left hip NE[facility]ING,[facility] Aug 26, 2024 11:53 AM SECONDARY Pain in left knee NE[facility]ING,[facility] Aug 26, 2024 11:53 AM SECONDARY Sciatica, left side [facility]ING,[facility] Plan of Treatment: Future Appointments (+ 6 months) and Future Tests (+/- 45 days) The Plan of Treatment section includes future care activities for the patient from all [facility]. This section includes future appointments and future orders which are active, pending or scheduled. Future Appointments This section includes appointments that were scheduled to occur 6 months from the date of the Encounter, up to a maximum of 20 appointments. The data comes from all [facility]. Appointment Date/Time Appointment Type Appointme nt Facility Name Aug 28, 2024 09:30 AM AMBULATORY - RE[facility]AB MEDIC[facility] Aug 29, 2024 10:15 AM AMBULATORY - REHAB MEDICIN [facility] Sep 02, 2024 01:00 PM AM[facility]ULATORY [facility] SURGERY [facility] Sep 11, 2024 02:45 PM AMBULATORY - REHAB MEDICIN [facility] Sep 25, 2024 10:45 AM AMBULATORY - REHAB MEDICIN [facility] Feb 26, 2025 10:00 AM [facility] Active, Pending, and Scheduled Orders This section [...] (MFP ONLY) STOOL, RANDOM FECES SP ONCE [facility] Advance Directives: All historical and current Section [...] 13, 2023 ADVANCE DIRECTIVE DISCUSSION VÍCTOR HAMPTON [facility] Jan 16, 2008 ADVANCE DIRECTIVE ROBERTA GARCIA [facility] Jan 16, 2008 ADVANCE DIRECTIVE RALPH DE DIOS [facility] Encounter Notes: All associated encounter notes This section contains the clinical notes associated to the Encounter. Date/Time Encounter Note(s) Provider Source Aug 26, 2024 07:51 AM PHYSICAL THERAPY N OTE: LOCAL TITLE: PHYSICAL THERAPY NOTE STANDARD TITLE: PHYSICAL THERAPY NOTE DATE OF NOTE: AUG 26, 2024@07:51 ENTRY DATE: AUG 26, 2024@07:51:45 AUTHOR: KRISTYN CARDOZA COSIGNER: JASON POTTER URGENCY: STATUS: COMPLETED Osteoarthritis of knee, unspecified (ICD-10-CM M17.9) Pain in left knee (ICD-10-CM M25.562) Sciatica, left side (ICD-10-CM M54.32) Low back pain, unspecified (ICD-10-CM M54.50) Pain in left Hip (ICD-10-CM M25.552) Manual, 30min S: Pt report low back, tight, pain 3/10. L knee tight, stiff, and locking up, pain 7/10. L hip sore, pain 2/10, increase pain w/ walking. HEP some of them increase the pain. Had about 2 hours of relief after last visit. Had a fall LLE gave out. O: Pt arrived to 6th therapy apt. HEP: Access Code: [email or web address] Exercises - Seated Transversus Abdominis Bracing - 25 x daily - Seated Flexion Stretch with Australian Ball - 1 x daily - 7 x weekly - 3 sets - 10 reps - Seated Thoracic Flexion and Rotation with Australian Ball - 1 x daily - 7 x weekly - 3 sets - 10 reps - Supine Lumbar Rotation with Australian Ball - 1 x daily - 7 x weekly - 3 sets - 10 reps - Supine Hip and Knee Flexion AROM with Australian Ball - 1 x daily - 7 [...] attain performance of exercises with adequate technique. MANUAL THERAPY: L knee mobilization and soft tissue work Manual therapy was provided for the patient one on one by the physical therapy coordinator. The treatment included joint and/or mobilization to the joints and their related soft tissue in order to decrease/gate pain, improve joint range of motion, and provide neurophysiological, psychological, and biomechanical benefits. Prior to mobilization, the patient was informed of the purpose, benefits, and risks of mobilization. The patient verbalized understanding and consented to receive mobilization. Following the performance of the technique, the patient reported decreased pain and symptoms in the area of the application of the manual therapy and denied adverse effects. The time for manual therapy includes assessing for joint dysfunction, explanation of the technique, set up and performance of the technique, and reassessment of joint movement following application of the technique. Pt educated and issued Thera cane for home pain management. A: Pt tolerating treatment without increased symptoms. Pt would benefit from Ortho apt. SHORT TERM GOAL(S) - 2-4 Weeks (1) will be independent in home exercise program to reduce pain and improve range of motion. (2) [place] will increase Transversus Abdominis score by 1/2 grade to improve lumbar stability and posture. (3) will increase involved knee strength by 1/2 grade to increase knee stability. DETENTION GOAL(S) - 4-6 Weeks (1) will report no more than 3/10 max Low Back Pain to stand for prolong period of time. (2) will increase Transversus Abdominis score by 1 grade to improve lumbar stability and posture. (3)[place] will increase involved knee strength by 1 grade to increase knee stability. (4) [place] will increase Lumbar range of motion by [...] (2) Modalities as indicated to modulate pain- Maury Clarke (3) Manual therapy- Left knee mobilization and soft tissue work /es/ KRISTYN CARDOZA PTA LOIN PULLER Signed: 08/26/2024 11:54 /es/ JASON POTTER PHYSICAL THERAPIST Cosigned: 08/26/2024 13:00 KRISTYN CARDOZA [facility]
--- OUTSIDE RECORDS SUMMARY | 2024-08-28 05:30 | XMS_ITS | Encounter Summary ---
Author Name [facility] [place] Organization [place] Address [address] [place] [address] Care Team Providers Care Tractor Mechanic Name Role Phone AMANDEEP PETERS Primary Care [...] PART A May 04, 2019 PART A [id number] [phone] BURKS,AN CAT PATIENT MEDICARE (WNR) MEDICARE (M) PART B May 04, 2019 PART B [id number] BURKS,AN CAT PATIENT MEDICARE (WNR) MEDICARE (M) PART A October 02, 2018 PART A [id number] BURKS,AN CAT PATIENT MEDICARE (WNR) MEDICARE (M) PART B October 02, 2018 PART B [id number] KIMMIE,ALVARO CAT PATIENT Selected Encounter This section includes the information on record at [place] for the Encounter. Date/Time Encounter Type Encounter Description Reason Provider Source Aug 28, 2024 09:30 AM MANUAL THERAPY 1/> [facility] ICD-10-CM M17.9 Osteoarthritis of knee, unspecified LULUSHERRYJoshuaVLADCarla [facility] Encounter Template Text not used by [place] Assessments - Encounter Diagnoses This section includes the primary and secondary diagnoses documented for the Encounter. Date/Time Primary/Secondary Diagnosis Diagnosis Name Provider Source Aug 28, 2024 09:45 AM PRIMARY Osteoarthritis of knee, unspecified [facility]ARING,[facility] Aug 28, 2024 09:45 AM SECONDARY [facility] Aug 28, 2024 09:45 AM SECONDARY Pain in left knee [facility]ING,[facility] Aug 28, 2024 09:45 AM SECONDARY [facility] Plan of Treatment: Future Appointments (+ 6 months) and Future Tests (+/- 45 days) The Plan of Treatment section includes future care activities for the patient from all [place] [facility]. This section includes future appointments and future orders which are active, pending or scheduled. Future Appointments This section includes appointments that were scheduled to occur 6 months from the date of the Encounter, up to a maximum of 20 appointments. The data comes from all [facility]. Appointment Date/Time Appointment Type Appointme nt Facility Name Aug 29, 2024 10:15 AM AMBULATORY - REHAB MEDICIN [facility] Sep 02, 2024 01:00 PM AMBULATORY - SURGERY [facility] Sep 11, 2024 02:45 PM AMBULATORY - REHAB MEDICIN E [facility] Sep 25, 2024 10:45 AM AMBULATORY - REHAB MEDICIN E [facility] Feb 26, 2025 10:00 AM [facility] Active, Pending, and Scheduled Orders This section includes a listing of several types of active, pending, and scheduled orders, including clinic medications orders, diagnostic test orders, procedure orders and consult orders; where the start date of the order is 45 days before the date of the Encounter or 45 days after the date of theEncounter. The data comes from all [facility]. Test Date/Time Test Type Test Details Facility Name Sep 02, 2024 12:00 AM Laboratory - Chemi stry Order OCCULT BLOOD FIT X1 SCREEN (MFP ONLY) STOOL, RANDOM FECES [facility] Advance Directives: All historical and [...] 13, 2023 ADVANCE DIRECTIVE DISCUSSION VÍCTOR HAMPTON [facility] Jan 16, 2008 ADVANCE DIRECTIVE ROBERTA GARCIA [facility] Jan 16, 2008 ADVANCE DIRECTIVE RALPH DE DIOS [facility] Encounter Notes: All associated encounter notes This section contains the clinical notes associated to the Encounter. Date/Time Encounter Note(s) Provider Source Aug 28, 2024 07:38 AM PHYSICAL THERAPY N OTE: [facility] TITLE: PHYSICAL THERAPY NOTE STANDARD TITLE: PHYSICAL THERAPY NOTE DATE OF NOTE: AUG 28, 2024@07:38 ENTRY DATE: AUG 28, 2024@07:39:06 AUTHOR: KRISTYN CARDOZA COSIGNER: JASON POTTER URGENCY: [...] HEP some of them increase the pain. No falls. O: Pt arrived to 7th therapy apt. HEP: Access Code: [email or web address] Exercises - Seated Transversus Abdominis Bracing - 25 x daily - Seated Flexion Stretch with Ugandan Ball - 1 x daily - 7 x weekly - 3 sets - 10 reps - Seated Thoracic Flexion and Rotation with Ugandan Ball - 1 x daily - 7 x weekly - 3 sets - 10 reps - Supine Lumbar Rotation with Ugandan Ball - 1 x daily - 7 x weekly - 3 sets - 10 reps - Supine Hip and Knee Flexion AROM with Ugandan Ball - 1 x daily - 7 [...] the patient one on one by the assistant operator. The treatment included joint and/or mobilization to the joints and their related soft tissue in order to decrease/gate pain, improve joint range of motion, and provide neurophysiological, psychological, and biomechanical benefits. Following the performance of the technique, the patient reported decreased pain and symptoms in the area of the application of the manual therapy and denied adverse effects. The time for manual therapy includes assessing for joint dysfunction, set up and performance of the technique, and reassessment of joint movement following application of the technique. A: Pt tolerating treatment without increased symptoms. Pt tight hamstrings, quads, Gastroc, and IT bands. Pt not meeting goals. E-stim not beneficial at this time. SHORT TERM GOAL(S) - 2-4 Weeks (1) [place] will be independent in home exercise program to reduce pain and improve range of motion. (2) will increase Transversus Abdominis score by 1/2 grade to improve lumbar stability and posture. (3) [place] will increase involved knee strength by 1/2 grade to increase knee stability. MASS SPECTROMETRY SPECIALIST GOAL(S) - 4-6 Weeks (1) [place] will report no more than 3/10 max Low Back Pain to stand for prolong period of time. (2) will increase Transversus Abdominis score by 1 grade to improve lumbar stability and posture. (3)[place] will increase involved knee strength by 1 [...] soft tissue work /es/ KRISTYN CARDOZA PTA LIFT ELECTRICIAN Signed: 08/28/2024 09:45 /kallie/ JASON POTTER PHYSICAL THERAPIST Cosigned: 08/28/2024 10:09 KRISTYN CARDOZA [facility]
--- OUTSIDE RECORDS SUMMARY | 2024-08-29 06:15 | XMS_ITS | Encounter Summary ---
Author Name [facility] [place] [facility] [place] Address [address] [place] [address] Care Team Providers Care Appliquer Zigzag Name Role Phone AMANDEEP PETERS Primary Care [...] PART A May 04, 2019 PART A [id number] [phone] KIMMIE,ALVARO SHELTON PATIENT MEDICARE (WNR) MEDICARE (M) PART B May 04, 2019 PART B [id number] BURKS,AN CAT PATIENT MEDICARE (WNR) MEDICARE (M) PART A October 02, 2018 PART A [id number] KIMMIE,AN CAT PATIENT MEDICARE (WNR) MEDICARE (M) PART B October 02, 2018 PART B [id number] ALVARO BURKS PATIENT Selected Encounter This section includes the information on record at [place] for the Encounter. Date/Time Encounter Type Encounter Description Reason Provider Source Aug 29, 2024 10:15 AM PT RE-EVAL EST PLAN CARE PHYSICAL THERAPY ICD-10-CM M17.9 Osteoarthritis of knee, unspecified LULUNDJoshua,DARSHANA QUINTERO [facility] Encounter Template Text not used by [place] Assessments - Encounter Diagnoses This section includes the primary and secondary diagnoses documented for the Encounter. Date/Time Primary/Secondary Diagnosis Diagnosis Name Provider Source Aug 29, 2024 12:31 PM PRIMARY Osteoarthritis of knee, unspecified [facility] Aug 29, 2024 12:31 PM SECONDARY Low back pain, unspecified [facility]UNDI[facility] Aug 29, 2024 12:31 PM SECONDARY Pain in left knee [facility] Aug 29, 2024 12:31 PM SECONDARY Sciatica, left side [facility] Plan of Treatment: Future Appointments (+ 6 months) and Future Tests (+/- 45 days) The Plan of Treatment section includes future care activities for the patient from all [place] [facility] This section includes future appointments and future orders which are active, pending or scheduled. Future Appointments This section includes appointments that were scheduled to occur 6 months from the date of the Encounter, up to a maximum of 20 appointments. The data comes from all [facility]. Appointment Date/Time Appointment Type Appointme nt Facility Name Sep 02, 2024 01:00 PM AMBULATORY - SURGERY [facility] Sep 11, 2024 02:45 PM AMBULATORY - REHAB [facility] Sep 25, 2024 10:45 AM AMBULATORY - REHAB [facility] E [facility] Feb 26, 2025 10:00 AM AMBULATORY - MEDICINE [facility] Active, Pending, and Scheduled Orders This section includes a listing of several types of active, pending, and scheduled orders, including clinic medications orders, diagnostic test orders, procedure orders and consult orders; where the start date of the order is 45 days before the date of the Encounter or 45 days after the date of theEncounter. The data comes from all [facility]. Test Date/Time Test Type Test Details Facility Name Sep 02, 2024 12:00 AM Laboratory - Chemi stry Order OCCULT BLOOD FIT X1 SCREEN (MFP ONLY) STOOL, RANDOM FECES SP ONCE [facility] Advance Directives: All historical and [...] Jan 16, 2008 ADVANCE DIRECTIVE ROBERTA GARCIA [facility] Jan 16, 2008 ADVANCE DIRECTIVE RALPH DE DIOS [facility] Encounter Notes: All associated encounter notes This section contains the clinical notes associated to the Encounter. Date/Time Encounter Note(s) Provider Source Aug 29, 2024 10:42 AM PHYSICAL THERAPY N OTE: LOCAL TITLE: PHYSICAL THERAPY NOTE STANDARD TITLE: PHYSICAL THERAPY NOTE DATE OF NOTE: AUG 29, 2024@10:42 ENTRY DATE: AUG 29, 2024@10:42:43 AUTHOR: JASON POTTER EXP COSIGNER: URGENCY: STATUS: COMPLETED Diagnosis(es): Osteoarthritis of knee, unspecified (ICD-10-CM M17.9) (Primary) Pain in left knee (ICD-10-CM M25.562) Sciatica, left side (ICD-10-CM M54.32) Low back pain, unspecified (ICD-10-CM M54.50) Code(s): 04268: 45 Minutes Visit #: 7 + 1 Evaluation Preferred Language: Moroccan History of Present Illness: is a 68 year old male presenting to outpatient therapy with an extensive history of Low Back Pain with an insidious onset. reports he was scheduled for back surgery in 2019 which got cancelled because he got Covid and was not rescheduled. Loidat reports he was taking morphine at that time to manage his pain. Vet has had cortisone injections that did not help his pain. Loidat completed [facility] PT recently, reports did not make much gains. Vet uses TENS and Ice that helps some. Loidat reports left knee pain is very severe, knee gives out leading to falls. MRI showed medial meniscus tear, MCL sprain, moderate joint effusion. Loidat also has hx of left hip pain. -----SUBJECTIVE --- Patient arrived to Physical Therapy Outpatient gym and is agreeable to participate with Physical Therapy. [place] reports that he had 2 falls recently, was not using walker or cane both times. [place] did not find estim device helpful, states it caused more swelling in his legs and the falls happened after the use of estim. ------OBJECTIVE --- [place] seen in Outpatient Physical Therapy gym x30 minutes for review of therapeutic exercises and active care guidelines. MANUAL MUSCLE TEST: Right Left -Hip Flexion 5/5 4-/5 -Hip Abduction 5/5 4-/5 -Hip Adduction 5/5 4-/5 -Knee Flexion 5/5 4-/5 -Knee Extension 5/5 4-/5 -Ankle Plantarflexion 5/5 4/5 -Ankle Dorsiflexion 5/5 4/5 Bilateral Lower Extremities (degrees) Positioned in Supine -Hip Flexion 110 100 125 -Hip Internal Rotation 30 25 45 -Hip External Rotation 35 30 45 -Knee WNL 0-100 [place] OSTEOARTHRITIS INDEX (WOMAC) 0 - [...] (MCID): 9.1 -Minimally Detectable Change (MDC): 9.1 -------ASSESSMENT-------- --- Silviano has attended 8 physical therapy treatment sessions and has made some progress with slightly improved strength in L LE. Silviano continues to have pain, pain with active range of motion, and strength and postural deficits that result in continued difficulty ambulating/standing prolong periods of time, ascending/descending steps, and completing activities of daily living. Due to silviano's continued deficits, silviano requires additional skilled Physical Therapy services. Physical Therapy remains medically necessary based on 's deficits and functional limitations. Silviano has consented to continue Physical Therapy. SHORT TERM GOAL(S) - 2-4 Weeks (1) [place] will be independent in home exercise program to reduce pain and improve range of motion. (2) will increase Transversus Abdominis score by 1/2 grade to improve lumbar stability and posture. met (3) [place] will increase involved knee strength by 1/2 grade to increase knee stability. met CORRECTION GOAL(S) - 4-6 Weeks (1) [place] will report no more than 3/10 max Low Back Pain to stand for prolong period of time. (2) [place] will increase Transversus Abdominis score by 1 grade to improve lumbar stability and posture. (3)[place] will increase involved knee strength by 1 grade to increase knee stability. (4) will increase Lumbar range of motion by 25% overall to improve mobility. (5) [place] will decrease WOMAC score by 9 points to increase Quality of Life. PLAN --- NEXT VISIT- Balance activities, cont L knee ROM and strength exercises /es/ PRAMADASHREE CHUNDI PHYSICAL THERAPIST Signed: 08/29/2024 12:[address] [facility]
--- OUTSIDE RECORDS SUMMARY | 2024-09-11 10:45 | XMS_ITS | Encounter Summary ---
Author Name [facility] [place] [facility] [place] [facility] [place] Address [address] [place] [id number] Care Team Providers Care Shank Cementer Hand Name Role Phone AMANDEEP PETERS Primary Care [...] PART A May 04, 2019 PART A [id number] BURKS,ALVARO ZHENGONY PATIENT MEDICARE (WNR) MEDICARE (M) PART B May 04, 2019 PART B [id number] BURKS,AN CTA PATIENT MEDICARE (WNR) MEDICARE (M) PART A October 02, 2018 PART A [id number] BURKS,AN CTA PATIENT MEDICARE (WNR) MEDICARE (M) PART B October 02, 2018 PART B [id number] [id number] [phone] KIMMIE,ALVARO CAT PATIENT Selected Encounter This section includes the information on record at [place] for the Encounter. Date/Time Encounter Type Encounter Description Reason Provider Source Sep 11, 2024 02:45 PM THERAPEUTIC EXERCISES PHYSICAL THERAPY ICD-10-CM M17.9 Osteoarthritis of knee, unspecified DARSHANA POTTER Ana Laura Encounter Template Text not used by [place] Assessments - Encounter Diagnoses This section includes the primary and secondary diagnoses documented for the Encounter. Date/Time Primary/Secondary Diagnosis Diagnosis Name Provider Source Sep 11, 2024 03:19 PM PRIMARY Osteoarthritis of knee, unspecified [facility] Sep 11, 2024 03:19 PM SECONDARY Low back pain, unspecified [facility] Sep 11, 2024 03:19 PM SECONDARY Pain in left hip [facility] Sep 11, 2024 03:19 PM SECONDARY Pain in left knee [facility] Sep 11, 2024 03:19 PM SECONDARY Sciatica, left side [facility] Plan of Treatment: Future Appointments (+ 6 months) and Future Tests (+/- 45 days) The Plan of Treatment section includes future care activities for the patient from all [place] [facility]. This section includes future appointments and future orders which are active, pending or scheduled. Future Appointments This section includes appointments that were scheduled to occur 6 months from the date of the Encounter, up to a maximum of 20 appointments. The data comes from all [facility]. Appointment Date/Time Appointment Type Appointme nt Facility Name Sep 25, 2024 10:45 AM AMBULATORY - [facility]AB [facility]IC[facility] Feb 26, 2025 10:00 AM [facility] Mar 04, 2025 11:00 AM [facility]ORY - SURGERY [facility] Active, Pending, and Scheduled Orders This section includes a listing of several types of active, pending, and scheduled orders, including clinic medications orders, diagnostic test orders, procedure orders and consult orders; where the start date of the order is 45 days before the date of the Encounter or 45 days after the date of theEncounter. The data comes from all [place] treatment [facility]. Test Date/Time Test Type Test Details Facility Name Sep 02, 2024 12:00 AM Laboratory - Chemi stry Order OCCULT BLOOD FIT X1 SCREEN (MFP ONLY) STOOL, RANDOM FECES SP ONCE [facility] Advance Directives: All historical and current Section Date Range: From patient's date of to the date document was created. This section includes ALL of a patient's completed or amended [place] Advance and Rescinded Directives. The entries below indicate that a directive exists for the patient, but an actual copy is not included with this document. The data comes from all [place] facilities. Date Advance Directives Provider Source Jun 13, 2023 ADVANCE DIRECTIVE DISCUSSION [facility] Jan 16, 2008 ADVANCE DIRECTIVE ROBERTA GARCIA [facility] Jan 16, 2008 ADVANCE DIRECTIVE RALPH DE DIOS [facility] Encounter Notes: All associated encounter notes This section contains the clinical notes associated to the Encounter. Date/Time Encounter Note(s) Provider Source Sep 11, 2024 08:12 AM PHYSICAL THERAPY N OTE: LOCAL TITLE: PHYSICAL THERAPY NOTE STANDARD TITLE: PHYSICAL THERAPY NOTE DATE OF NOTE: SEP 11, 2024@08:12 ENTRY DATE: SEP 11, 2024@08:12:43 AUTHOR: KRISTYN CARDOZA COSIGNER: JASON POTTER URGENCY: [...] pain. No falls. O: Pt arrived to 9th therapy apt. HEP: Access Code: [email or web address] Exercises - Seated Transversus Abdominis Bracing - 25 x daily - Seated Flexion Stretch with Japanese Ball - 1 x daily - 7 x weekly - 3 sets - 10 reps - Seated Thoracic Flexion and Rotation with Japanese Ball - 1 x daily - 7 x weekly - 3 sets - 10 reps - Supine Lumbar Rotation with Japanese Ball - 1 x daily - 7 x weekly - 3 sets - 10 reps - Supine Hip and Knee Flexion AROM with Japanese Ball - 1 x daily - 7 [...] - 10 reps - 30 5sec hold - Standing Tandem Balance with Counter Support - 1 x daily - 10 reps - 5-30 sec hold Pt required min verbal/tactile cuing to attain performance of exercises with adequate technique. A: Pt tolerating treatment without increased symptoms. Pt tight hamstrings, quads, Gastroc, and IT bands. SHORT TERM GOAL(S) - 2-4 Weeks (1) will be independent in home exercise program to reduce pain and improve range of motion. BUCKLE SORTER GOAL(S) - 4-6 Weeks (1) [place] will report no more than 3/10 max Low Back Pain to stand for prolong period of time. (2) will increase Transversus Abdominis score by 1 grade to improve lumbar stability and posture. (3) [place] will increase involved knee strength by 1 grade to increase knee stability. (4) will increase Lumbar range of motion by 25% overall to improve mobility. (5) will decrease WOMAC score by 9 points to increase Quality of Life. P: NEXT VISIT- Balance activities, cont. L knee ROM and strength exercises /kallie/ KRISTYN CARDOZA PTA [employer]ITRIC [employer] PLANT OPERATOR Signed: 09/11/2024 15:19 /kallie/ JASON POTTER PHYSICAL THERAPIST Cosigned: 09/11/2024 15:23 KRISTYN CARDOZA [facility]
--- OUTSIDE RECORDS SUMMARY | 2024-09-25 06:45 | XMS_ITS | Encounter Summary ---
Author Name [facility] [place] Address [address] [place] [address] Care Team Providers Care Thermometer Production Worker Name Role Phone AMANDEEP PETERS Primary [...] PART A May 04, 2019 PART A [id number] KIMMIE,ALVARO SHELTON PATIENT MEDICARE (WNR) MEDICARE (M) PART B May 04, 2019 PART B [id number] BURKS,ALVARO ZHENGONY PATIENT MEDICARE (WNR) MEDICARE (M) PART A October 02, 2018 PART A [id number] [id number] [phone] BURKS,ALVARO ZHENGONY PATIENT MEDICARE (WNR) MEDICARE (M) PART B October 02, 2018 PART B [id number] [id number] [phone] ALVARO BURKS CAT PATIENT Selected Encounter This section includes the information on record at [place] for the Encounter. Date/Time Encounter Type Encounter Description Reason Pro vider Source Sep 25, 2024 10:45 AM Outpatient Encounter PHYSICAL THERAPY [facility] Encounter Template Text not used by [place] Plan of Treatment: Future Appointments (+ 6 months) and Future Tests (+/- 45 days) The Plan of Treatment section includes future care activities for the patient from all [place] treatmentfacilities. This section includes future appointments and future orders which are active, pending or scheduled. Future Appointments This section includes appointments that were scheduled to occur 6 months from the date of the Encounter, up to a maximum of 20 appointments. The data comes from all [place] treatment facilities. Appointment Date/Time Appointment Type Appointme nt Facility Name Feb 26, 2025 10:00 AM [facility] Mar 04, 2025 11:00 AM [facility] Active, Pending, and Scheduled Orders This section includes a listing of several types of active, pending, and scheduled orders, including clinic medications orders, diagnostic test orders, procedure orders and consult orders; where the start date of the order is 45 days before the date of the Encounter or 45 days after the date of theEncounter. The data comes from all [place] treatment facilities. Test Date/Time Test Type Test Details Facility Name Sep 02, 2024 12:00 AM Laboratory - Chemi stry Order OCCULT BLOOD FIT X1 SCREEN (MFP ONLY) STOOL, RANDOM FECES SP ONCE [facility] Social History: Smoking Status (Most current) and Tobacco Use (All prior to encounter date) This section includes the most current, and the historical, smoking and tobacco- related health factors from the [place] facility where the Encounter took place. Current Smoking Status This section includes the most current smoking, or tobacco-related health factor, from the [place] facility where the Encounter took place. Date/Time Current Smoking Status Comment Bautista calvillo Jan 04, 2017 03:31 PM CURRENT TOBACCO USER [facility] Tobacco Use History This section includes a history of the smoking, or tobacco-related health factors, that were collected on or before the date of the Encounter. The data comes from the [place] facility where the Encounter took place. Date/Time Smoking Status/Tobacco Use Comment F acility Jan 04, 2017 03:31 PM TOB INFO ON NON-VA STOP SMOKING CLINIC [facility] Jan 04, 2017 03:31 PM TOBACCO OFFERED PT MEDS (PROVIDE R) [facility] May 31, 2011 09:24 AM QUIT TOBACCO IN THE LAST 12 [facility]AV[facility] Advance Directives: All historical and current Section Date Range: From patient's date of to the date document was created. This section includes ALL of a patient's completed or amended [place] Advance and Rescinded Directives. The entries below indicate that a directive exists for the patient, but an actual copy is not included with this document. The data comes from all [place] facilities. Date Advance Directives Provider Source Jun 13, 2023 ADVANCE DIRECTIVE DISCUSSION VÍCTOR [facility] Jan 16, 2008 ADVANCE DIRECTIVE ROBERTA GARCIA [facility] Jan 16, 2008 ADVANCE DIRECTIVE [facility]PH [facility] Encounter Notes: All associated encounter notes This section contains the clinical notes associated to the Encounter. Date/Time Encounter Note(s) Provider Source Sep 25, 2024 11:22 AM REPORT OF CONTACT: LOCAL TITLE: AFTER VISIT SUMMARY STANDARD TITLE: REPORT OF CONTACT DICT DATE: SEP 25, 2024@10:45 ENTRY DATE: SEP 25, 2024@11:22:47 DICTATED BY: GABO FROST EXP COSIGNER: URGENCY: STATUS: COMPLETED The patient was provided with a copy of an after-visit summary at the conclusion of the visit. The after-visit summary includes information pertaining to the patient's encounter, including diagnoses, vital signs, medications, and new orders, as well as a list of any any upcoming appointments and information regarding the patient's ongoing care. The patient's medications were reviewed with the patient by the provider, if applicable, and were provided to the patient as an updated list of medications. The patient was instructed to inform their provider(s) of any medication changes or discrepancies that were noted. Otherwise, the patient was instructed to continue the medications as prescribed. A copy of the after-visit summary provided to the patient is available in [employer]. SCANNED DOCUMENT SIGNATURE NOT REQUIRED Electronically Filed: 09/25/2024 by: GABO STARK-GABO [facility]
--- OUTSIDE RECORDS SUMMARY | 2024-09-25 06:45 | XMS_ITS | Encounter Summary ---
Author Name [facility] [place] Organization [facility] [place] Address [address] [place] [id number] Care Team Providers Care Chargeback Specialist Name Role Phone AMANDEEP PETERS Primary Care [...] PART A May 04, 2019 PART A [id number] BURKS,ALVARO ZHENGONY PATIENT MEDICARE (WNR) MEDICARE (M) PART B May 04, 2019 PART B [id number] BURKS,AN CAT PATIENT MEDICARE (WNR) MEDICARE (M) PART A October 02, 2018 PART A [id number] BURKS,AN CAT PATIENT MEDICARE (WNR) MEDICARE (M) PART B October 02, 2018 PART B [id number] KIMMIE,ALVARO CAT PATIENT Selected Encounter This section includes the information on record at [place] for the Encounter. Date/Time Encounter Type Encounter Description Reason Provider Source Sep 25, 2024 10:45 AM THERAPEUTIC EXERCISES PHYSICAL THERAPY ICD-10-CM M17.9 Osteoarthritis of knee, unspecified DARSHANA POTTER Ana Laura Encounter Template Text not used by MD Assessments - Encounter Diagnoses This section includes the primary and secondary diagnoses documented for the Encounter. Date/Time Primary/Secondary Diagnosis Diagnosis Name Provider Source Sep 25, 2024 12:51 PM PRIMARY Osteoarthritis of knee, unspecified NEARING,[facility] Sep 25, 2024 12:51 PM SECONDARY Low back pain, unspecified NEARING,[facility] Sep 25, 2024 12:51 PM SECONDARY Pain in left hip NEARING,[facility] Sep 25, 2024 12:51 PM SECONDARY Pain in left knee NEARING,[facility] Sep 25, 2024 12:51 PM SECONDARY Sciatica, left side NEARING,[facility] Plan of Treatment: Future Appointments (+ 6 months) and Future Tests (+/- 45 days) The Plan of Treatment section includes future care activities for the patient from [facility] This section includes future appointments and future orders which are active, pending or scheduled. Future Appointments This section includes appointments that were scheduled to occur 6 months from the date of the Encounter, up to a maximum of 20 appointments. The data comes from all MD treatment facilities. Appointment Date/Time Appointment Type Appointme nt Facility Name Feb 26, 2025 10:00 AM AMBULATORY - MEDICINE [facility] Mar 04, 2025 11:00 AM AM[facility]ATORY - SURGERY [facility] Active, Pending, and Scheduled Orders This section includes a listing of several types of active, pending, and scheduled orders, including clinic medications orders, diagnostic test orders, procedure orders and consult orders; where the start date of the order is 45 days before the date of the Encounter or 45 days after the date of theEncounter. The data comes from all MD treatment facilities. Test Date/Time Test Type Test Details Facility Name Sep 02, 2024 12:00 AM Laboratory - Chemi stry Order OCCULT BLOOD FIT X1 SCREEN (MFP ONLY) STOOL, RANDOM FECES SP ONCE [facility] Advance Directives: All historical and current Section Date Range: From patient's date of to the date document was created. This section includes ALL of a patient's completed or amended [place] Advance and Rescinded Directives. The entries below indicate that a directive exists for the patient, but an actual copy is not included with this document. The data comes from all MD facilities. Date Advance Directives Provider Source Jun 13, 2023 ADVANCE DIRECTIVE DISCUSSION VÍCTOR HAMPTON [facility] Jan 16, 2008 ADVANCE DIRECTIVE CONCHITAJENNIFERROBERTA [facility] Jan 16, 2008 ADVANCE DIRECTIVE SANJUANA DE DIOSInez Quinn [facility] Encounter Notes: All associated encounter notes This section contains the clinical notes associated to the Encounter. Date/Time Encounter Note(s) Provider Source Sep 25, 2024 07:47 AM PHYSICAL THERAPY N OTE: LOCAL TITLE: PHYSICAL THERAPY NOTE STANDARD TITLE: PHYSICAL THERAPY NOTE DATE OF NOTE: SEP 25, 2024@07:47 ENTRY DATE: SEP 25, 2024@07:47:53 AUTHOR: KRISTYN CARDOZA COSIGNER: JASON POTTER URGENCY: STATUS: COMPLETED Osteoarthritis of knee, unspecified (ICD-10-CM M17.9) Pain in left knee (ICD-10-CM M25.562) Sciatica, left side (ICD-10-CM M54.32) Low back pain, unspecified (ICD-10-CM M54.50) Pain in left Hip (ICD-10-CM M25.552) Gait, 15min Ther-ex, 15min S: Pt report low back, tight, pain 3/10. L knee tight, stiff, and locking up, pain 7/10. L hip sore, pain 2/10, increase pain w/ walking. HEP some of them increase the pain. No falls. O: Pt arrived to 10th therapy apt. Gait for 260' working on body position and step length through the gait cycle. Side step for 30' each way. HEP: Access Code: [email or web address] Exercises - Seated Transversus Abdominis Bracing - 25 x daily - Seated Flexion Stretch with Libyan Ball - 1 x daily - 7 x weekly - 3 sets - 10 reps - Seated Thoracic Flexion and Rotation with Libyan Ball - 1 x daily - 7 x weekly - 3 sets - 10 reps - Supine Lumbar Rotation with Libyan Ball - 1 x daily - 7 x weekly - 3 sets - 10 reps - Supine Hip and Knee Flexion AROM with Libyan Ball - 1 x daily - 7 [...] attain performance of exercises with adequate technique. Educated and issued FAC. A: Pt L knee not making progress recommended Orthro apt. Pt tight hamstrings, quads, Gastroc, and IT bands. Therapy is not helping w/ L knee pain. Pt to continue doing HEP on own. Pt limited gait due to L knee pain. SHORT TERM GOAL(S) - 2-4 Weeks (1) will be independent in home exercise program to reduce pain and improve range of motion. TOOL DISPATCHER GOAL(S) - 4-6 Weeks (1) will report no more than 3/10 max Low Back Pain to stand for prolong period of time. (2) Barre will increase Transversus Abdominis score by 1 grade to improve lumbar stability and posture. (3) Barre will increase involved knee strength by 1 grade to increase knee stability. (4) Barre will increase Lumbar range of motion by 25% overall to improve mobility. (5) will decrease WOMAC score by 9 points to increase Quality of Life. P: NEXT VISIT- Balance activities, cont. L knee ROM and strength exercises /kallie/ KRISTYN CARDOZA PTA PROFESSIONAL [employer] Signed: 09/25/2024 12:54 /es/ JASON POTTER PHYSICAL THERAPIST Cosigned: 09/25/2024 12:56 KRISTYN CARDOZA [facility]
--- OUTSIDE RECORDS SUMMARY | 2024-09-25 07:35 | XMS_ITS | Encounter Summary ---
Author Name [facility] [place] Address [address] [place] [address] Care Team Providers Care Side Door Worker Name Role Phone AMANDEEP PETERS Primary [...] PART A May 04, 2019 PART A [id number] KIMMIE,ALVARO SHELTON PATIENT MEDICARE (WNR) MEDICARE (M) PART B May 04, 2019 PART B [id number] BURKS,ALVARO ZHENGONY PATIENT MEDICARE (WNR) MEDICARE (M) PART A October 02, 2018 PART A [id number] BURKS,ALVARO ZHENGONY PATIENT MEDICARE (WNR) MEDICARE (M) PART B October 02, 2018 PART B [id number] HR73 [phone] ALVARO BURKS CAT PATIENT Selected Encounter This section includes the information on record at [place] for the Encounter. Date/Time Encounter Type Encounter Description Reason Pro vider Source Sep 25, 2024 11:35 AM Outpatient Encounter PHYSICAL THERAPY IHE Encounter [...] 2025 10:00 AM AMBULATORY - MEDICINE [facility] Mar 04, 2025 11:00 AM [facility] Active, Pending, and Scheduled Orders [...] (MFP ONLY) STOOL, RANDOM FECES SP ONCE [facility] Social History: Smoking Status (Most current) and [...] 04, 2017 03:31 PM CURRENT TOBACCO USER [facility] Tobacco Use History This section includes a history of the smoking, or tobacco-related health factors, that were collected on or before the date of the Encounter. The data comes from the [place] facility where the Encounter took place. Date/Time Smoking Status/Tobacco Use Comment F acility Jan 04, 2017 03:31 PM TOB INFO ON NON-VA STOP SMOKING CLINIC [facility] Jan 04, 2017 03:31 PM TOBACCO OFFERED PT MEDS (PROVIDE R) [facility] May 31, 2011 09:24 AM QUIT TOBACCO IN THE LAST 12 OCTAVIO [facility] Advance Directives: All historical and current Section [...] 13, 2023 ADVANCE DIRECTIVE DISCUSSION VÍCTOR HAMPTON [facility] Jan 16, 2008 ADVANCE DIRECTIVE ROBERTA GARCIA [facility] Jan 16, 2008 ADVANCE DIRECTIVE RALPH DE DIOS [facility] Encounter Notes: All associated encounter notes This section contains the clinical notes associated to the Encounter. Date/Time Encounter Note(s) Provider Source Sep 25, 2024 11:35 AM ADMINISTRATIVE NOT E: LOCAL TITLE: MSE ADDITIONAL CALL STANDARD TITLE: ADMINISTRATIVE NOTE DATE OF NOTE: SEP 25, 2024@11:35 ENTRY DATE: SEP 25, 2024@11:35:51 AUTHOR: YURI PRICE EXP COSIGNER: URGENCY: STATUS: COMPLETED All Other Services: This note is in regards to: October@10:45 desires care but declines scheduling at this time provided proper contact information and will call back. Appointment Request dispositioned. /kallie/ YURI PRICE [facility] OUTPATIENT Signed: 09/25/2024 11:36 YURI PRICE [facility]
--- OUTSIDE RECORDS SUMMARY | 2024-09-25 07:36 | XMS_ITS | Encounter Summary ---
Author Name Department [place] Address [address] [place] [address] Care Team Providers Care De Alcholizer Name Role Phone AMANDEEP PETERS Primary Care [...] PART A May 04, 2019 PART A [id number] KIMMIE,ALVARO SHELTON PATIENT MEDICARE (WNR) MEDICARE (M) PART B May 04, 2019 PART B [id number] BURKS,ALVARO ZHENGONY PATIENT MEDICARE (WNR) MEDICARE (M) PART A October 02, 2018 PART A [id number] HR73 [phone] BURKS,ALVARO ZHENGONY PATIENT MEDICARE (WNR) MEDICARE (M) PART B October 02, 2018 PART B [id number] ALVARO BURKS CAT PATIENT Selected Encounter This section includes the information on record at [place] for the Encounter. Date/Time Encounter Type Encounter Description Reason Pro vider Source Sep 25, 2024 11:36 AM Outpatient Encounter PHYSICAL THERAPY IHE Encounter Template Text not used by [place] Plan of Treatment: Future Appointments (+ 6 months) and Future Tests (+/- 45 days) The Plan of Treatment section includes future care activities for the patient from all [place] treatmentfacilities. This section includes future appointments and future orders which are active, pending or scheduled. Future Appointments This section includes appointments that were scheduled to occur 6 months from the date of the Encounter, up to a maximum of 20 appointments. The data comes from all [place] treatment facilities. Appointment Date/Time Appointment Type Appointme nt Facility Name Feb 26, 2025 10:00 AM AMBULATORY [facility]ICINE [facility] Mar 04, 2025 11:00 AM [facility] Active, Pending, and Scheduled Orders This section includes a listing of several types of active, pending, and scheduled orders, including clinic medications orders, diagnostic test orders, procedure orders and consult orders; where the start date of the order is 45 days before the date of the Encounter or 45 days after the date of theEncounter. The data comes from all [place] treatment facilities. Test Date/Time Test Type Test Details Facility Name Sep 02, 2024 12:00 AM Laboratory - Chemi stry Order OCCULT BLOOD FIT X1 SCREEN (MFP ONLY) STOOL, RANDOM FECES SP ONCE [facility] Social History: Smoking Status (Most current) and Tobacco Use (All prior to encounter date) This section includes the most current, and the historical, smoking and tobacco- related health factors from the [place] facility where the Encounter took place. Current Smoking Status This section includes the most current smoking, or tobacco-related health factor, from the [place] facility where the Encounter took place. Date/Time Current Smoking Status Comment Bautista calvillo Jan 04, 2017 03:31 PM CURRENT TOBACCO USER [facility] Tobacco Use History This section includes a history of the smoking, or tobacco-related health factors, that were collected on or before the date of the Encounter. The data comes from the [place] facility where the Encounter took place. Date/Time Smoking Status/Tobacco Use Comment F acility Jan 04, 2017 03:31 PM TOB INFO ON NON-VA STOP SMOKING CLINIC [facility] Jan 04, 2017 03:31 PM TOBACCO OFFERED PT MEDS (PROVIDE R) [facility] May 31, 2011 09:24 AM QUIT TOBACCO IN THE LAST 12 OCTAVIO [facility] Advance Directives: All historical and current Section Date Range: From patient's date of to the date document was created. This section includes ALL of a patient's completed or amended [place] Advance and Rescinded Directives. The entries below indicate that a directive exists for the patient, but an actual copy is not included with this document. The data comes from all [place] facilities. Date Advance Directives Provider Source Jun 13, 2023 ADVANCE DIRECTIVE DISCUSSION VÍCTOR HAMPTON [facility] Jan 16, 2008 ADVANCE DIRECTIVE ROBERTA GARCIA [facility] Jan 16, 2008 ADVANCE DIRECTIVE RALPH DE DIOS [facility] Encounter Notes: All associated encounter notes This section contains the clinical notes associated to the Encounter. Date/Time Encounter Note(s) Provider Source Sep 25, 2024 11:36 AM ADMINISTRATIVE NOT E: LOCAL TITLE: MSE ADDITIONAL CALL STANDARD TITLE: ADMINISTRATIVE NOTE DATE OF NOTE: SEP 25, 2024@11:36 ENTRY DATE: SEP 25, 2024@11:36:12 AUTHOR: GABO FROST EXP COSIGNER: URGENCY: STATUS: COMPLETED All Other Services: This note is in regards to: October@10:45 Appointment no longer needed; Appointment Request dispositioned no longer desires the care/ Patient discharged from Program by Provider Venataliia newx above appt and cancel remarks: DECLINES RESCHEDULING APPT AT THIS TIME /kallie/ GABO FROST [facility] Signed: 09/25/2024 11:37 GABO FROST [facility]
--- OUTSIDE RECORDS SUMMARY | 2024-09-25 07:39 | XMS_ITS | Encounter Summary ---
Author Name Department [place] Organization [place] Address [address] [place] [address] Care Team Providers Care Store Operations Manager Name Role Phone AMANDEEP PETERS Primary [...] PART A May 04, 2019 PART A [id number] KIMMIE,ALVARO SHELTON PATIENT MEDICARE (WNR) MEDICARE (M) PART B May 04, 2019 PART B [id number] BURKS,ALVARO ZHENGONY PATIENT MEDICARE (WNR) MEDICARE (M) PART A October 02, 2018 PART A [id number] HR73 [phone] BURKS,ALVARO ZHENGONY PATIENT MEDICARE (WNR) MEDICARE (M) PART B October 02, 2018 PART B [id number] ALVARO BURKS CAT PATIENT Selected Encounter This section includes the information on record at [place] for the Encounter. Date/Time Encounter Type Encounter Description Reason Pro vider Source Sep 25, 2024 11:39 AM Outpatient Encounter PHYSICAL THERAPY IHE Encounter Template Text not used by [place] Plan of Treatment: Future Appointments (+ 6 months) and Future Tests (+/- 45 days) The Plan of Treatment section includes future care activities for the patient from all [place] treatmentfacilities. This section includes future appointments and future orders which are active, pending or scheduled. Future Appointments This section includes appointments that were scheduled to occur 6 months from the date of the Encounter, up to a maximum of 20 appointments. The data comes from all [place] treatment facilities. Appointment Date/Time Appointment Type Appointme nt Facility Name Feb 26, 2025 10:00 AM AMBULATORY - MEDICINE [facility] Mar 04, 2025 11:00 AM [facility] Active, Pending, and Scheduled Orders This section includes a listing of several types of active, pending, and scheduled orders, including clinic medications orders, diagnostic test orders, procedure orders and consult orders; where the start date of the order is 45 days before the date of the Encounter or 45 days after the date of theEncounter. The data comes from all [place] treatment facilities. Test Date/Time Test Type Test Details Facility Name Sep 02, 2024 12:00 AM Laboratory - Chemi stry Order OCCULT BLOOD FIT X1 SCREEN (MFP ONLY) STOOL, RANDOM FECES SP ONCE [facility] Social History: Smoking Status (Most current) and Tobacco Use (All prior to encounter date) This section includes the most current, and the historical, smoking and tobacco- related health factors from the [place] facility where the Encounter took place. Current Smoking Status This section includes the most current smoking, or tobacco-related health factor, from the [place] facility where the Encounter took place. Date/Time Current Smoking Status Comment Bautista calvillo Jan 04, 2017 03:31 PM CURRENT TOBACCO USER [facility] Tobacco Use History This section includes a history of the smoking, or tobacco-related health factors, that were collected on or before the date of the Encounter. The data comes from the [place] facility where the Encounter took place. Date/Time Smoking Status/Tobacco Use Comment F acility Jan 04, 2017 03:31 PM TOB INFO ON NON-VA STOP SMOKING CLINIC [facility] Jan 04, 2017 03:31 PM TOBACCO OFFERED PT MEDS (PROVIDE R) [facility] May 31, 2011 09:24 AM QUIT TOBACCO IN THE LAST 12 OCTAVIO [facility] Advance Directives: All historical and current Section Date Range: From patient's date of to the date document was created. This section includes ALL of a patient's completed or amended [place] Advance and Rescinded Directives. The entries below indicate that a directive exists for the patient, but an actual copy is not included with this document. The data comes from all [place] facilities. Date Advance Directives Provider Source Jun 13, 2023 ADVANCE DIRECTIVE DISCUSSION VÍCTOR HAMPTON [facility] Jan 16, 2008 ADVANCE DIRECTIVE ROBERTA GARCIA [facility] Jan 16, 2008 ADVANCE DIRECTIVE RALPH DE DIOS [facility] Encounter Notes: All associated encounter notes This section contains the clinical notes associated to the Encounter. Date/Time Encounter Note(s) Provider Source Sep 25, 2024 11:39 AM ADMINISTRATIVE NOT E: LOCAL TITLE: MSE ADDITIONAL CALL STANDARD TITLE: ADMINISTRATIVE NOTE DATE OF NOTE: SEP 25, 2024@11:39 ENTRY DATE: SEP 25, 2024@11:39:19 AUTHOR: YURI PRICE EXP COSIGNER: URGENCY: STATUS: COMPLETED All Other Services: This note is in regards to: October@10:45 desires care but declines scheduling at this time provided proper contact information and will call back. Appointment Request dispositioned. /kallie/ YURI PRICE MSA OUTPATIENT Signed: 09/25/2024 11:40 YURI PRICE [facility]
--- OUTSIDE RECORDS SUMMARY | 2024-09-25 07:41 | XMS_ITS | Encounter Summary ---
Author Name [place] Organization [place] Address [address] [place] [address] Care Team Providers Care System Analyst Name Role Phone AMANDEEP PETERS Primary Care [...] PART A May 04, 2019 PART A [id number] KIMMIE,ALVARO SHELTON PATIENT MEDICARE (WNR) MEDICARE (M) PART B May 04, 2019 PART B [id number] BURKS,ALVARO ZHENGONY PATIENT MEDICARE (WNR) MEDICARE (M) PART A October 02, 2018 PART A [id number] BURKS,ALVARO ZHENGONY PATIENT MEDICARE (WNR) MEDICARE (M) PART B October 02, 2018 PART B [id number] [phone] ALVARO BURKS CAT PATIENT Selected Encounter This section includes the information on record at [place] for the Encounter. Date/Time Encounter Type Encounter Description Reason Pro vider Source Sep 25, 2024 11:41 AM Outpatient Encounter PHYSICAL THERAPY IHE Encounter Template Text not used by [place] Plan of Treatment: Future Appointments (+ 6 months) and Future Tests (+/- 45 days) The Plan of Treatment section includes future care activities for the patient from all [place] treatmentfacilities. This section includes future appointments and [...] 2025 10:00 AM AMBULATORY - MEDICINE [facility] Mar 04, 2025 11:00 AM [facility] Active, Pending, and Scheduled Orders This section includes a listing of several types of active, pending, and scheduled orders, including clinic medications orders, diagnostic test orders, procedure orders and consult orders; where the start date of the order is 45 days before the date of the Encounter or 45 days after the date of theEncounter. The data comes from all [place] treatment facilities. Test Date/Time Test Type Test Details Facility Name Sep 02, 2024 12:00 AM Laboratory - Chemi stry Order OCCULT BLOOD FIT X1 SCREEN (MFP ONLY) STOOL, RANDOM FECES SP ONCE [facility] Social History: Smoking Status (Most current) [...] 04, 2017 03:31 PM CURRENT TOBACCO USER [facility] Tobacco Use History This section includes a history of the smoking, or tobacco-related health factors, that were collected on or before the date of the Encounter. The data comes from the [place] facility where the Encounter took place. Date/Time Smoking Status/Tobacco Use Comment F acility Jan 04, 2017 03:31 PM TOB INFO ON NON-VA STOP SMOKING CLINIC [facility] Jan 04, 2017 03:31 PM TOBACCO OFFERED PT MEDS (PROVIDE R) [facility] May 31, 2011 09:24 AM QUIT TOBACCO IN THE LAST 12 OCTAVIO [facility] Advance Directives: All historical and current [...] 2023 ADVANCE DIRECTIVE DISCUSSION VÍCTOR HAMPTON [facility] Jan 16, 2008 ADVANCE DIRECTIVE ROBERTA GARCIA [facility] Jan 16, 2008 ADVANCE DIRECTIVE RALPH DE DIOS [facility] Encounter Notes: All associated encounter notes This section contains the clinical notes associated to the Encounter. Date/Time Encounter Note(s) Provider Source Sep 25, 2024 11:41 AM ADMINISTRATIVE NOT E: LOCAL TITLE: MSE ADDITIONAL CALL STANDARD TITLE: ADMINISTRATIVE NOTE DATE OF NOTE: SEP 25, 2024@11:41 ENTRY DATE: SEP 25, 2024@11:41:25 AUTHOR: YURI PRICE EXP COSIGNER: URGENCY: STATUS: COMPLETED All Other Services: This note is in regards to: October@10:45 desires care but declines scheduling at this time provided proper contact information and will call back. Appointment Request dispositioned. /kallie/ YURI PRICE MSA OUTPATIENT Signed: 09/25/2024 11:41 YURI PRICE [facility]
--- OUTSIDE RECORDS SUMMARY | 2024-10-23 02:52 | XMS_ITS | Encounter Summary ---
Author Name [facility] [place] [facility] [place] Address [address] [place] [address] Care Team Providers Care Aeroplane Pilot Name Role Phone AMANDEEP PETERS Primary Care [...] PART A May 04, 2019 PART A [id number] KIMMIE,ALVARO SHELTON PATIENT MEDICARE (WNR) MEDICARE (M) PART B May 04, 2019 PART B [id number] BURKS,AN CAT PATIENT MEDICARE (WNR) MEDICARE (M) PART A October 02, 2018 PART A [id number] [phone] KIMMIE,ALVARO ZHENGONY PATIENT MEDICARE (WNR) MEDICARE (M) PART B October 02, 2018 PART B [id number] KIMMIE,ALVARO SHELTON PATIENT Selected Encounter This section includes the information on record at [place] for the Encounter. Date/Time Encounter Type Encounter Description Reason Pro vider Source October 23, 2024 06:52 AM Outpatient Encounter ADMIN PAT ACTIVTIES (MASNONCT) IHE Encounter Template Text not used by [facility] Plan of Treatment: Future Appointments (+ 6 months) and Future Tests (+/- 45 days) The Plan of Treatment section includes future care activities for the patient from all [place] treatmentfacilities. This section includes future appointments and future orders which are active, pending or scheduled. Future Appointments This section includes appointments that were scheduled to occur 6 months from the date of the Encounter, up to a maximum of 20 appointments. The data comes from all [place] treatment facilities. Appointment Date/Time Appointment Type Appointme nt Facility Name Feb 26, 2025 10:00 AM [facility]UL[facility] Mar 04, 2025 11:00 AM [facility] Social History: Smoking Status (Most current) and Tobacco Use (All prior to encounter date) This section includes the most current, and the historical, smoking and tobacco- related health factors from the [place] facility where the Encounter took place. Current Smoking Status This section includes the most current smoking, or tobacco-related health factor, from the [place] facility where the Encounter took place. Date/Time Current Smoking Status Comment Facil ity Jun 13, 2023 10:00 AM [place]-TOBACCO FORMER USER [facility] Tobacco Use History This section includes a history of the smoking, or tobacco-related health factors, that were collected on or before the date of the Encounter. The data comes from the [place] facility where the Encounter took place. Date/Time Smoking Status/Tobacco Use Comment F acility Jun 13, 2023 10:00 AM [place]-TOBACCO QUIT < 1 YEAR [facility] Advance Directives: All historical and current Section Date Range: From patient's date of to the date document was created. This section includes ALL of a patient's completed or amended [place] Advance and Rescinded Directives. The entries below indicate that a directive exists for the patient, but an actual copy is not included with this document. The data comes from all [place] facilities. Date Advance Directives Provider Source Jun 13, 2023 ADVANCE DIRECTIVE DISCUSSION VÍCTOR HAMPTON [facility] Jan 16, 2008 ADVANCE DIRECTIVE [facility] Jan 16, 2008 ADVANCE DIRECTIVE RALPH DE DIOS [facility] Encounter Notes: All associated encounter notes This section contains the clinical notes associated to the Encounter. Date/Time Encounter Note(s) Provider Source October 23, 2024 06:52 AM HEMATOLOGY AND ONC OLOGY NURSE PRACTITIONER NOTE: LOCAL TITLE: LUNG CANCER SCREENING VIDEO GAME PRODUCER NOTE STANDARD TITLE: HEMATOLOGY AND ONCOLOGY NURSE PRACTITIONER NOTE DATE OF NOTE: OCTOBER 23, 2024@06:52 ENTRY DATE: OCTOBER 23, 2024@06:52:45 AUTHOR: ANDREW BATES EXP COSIGNER: URGENCY: STATUS: COMPLETED LUNG CANCER SCREENING VIDEO GAME PRODUCER NOTE Has ADDENDA Radiology d/c'd LDCT reason other JOEL 11/18/24 . Alerting LCS Low Voltage Technician as cosigner to this note to reach out to and determine if they are still interested in participating in LCS, if interested please place new order for LDCT. If no longer desires to participate in LCS, please update platform, document 's desire in CPRS and add PCP and LCS VIDEO GAME PRODUCER in the note for awareness. /es/ ISAAK BATES Nurse Practitioner Signed: 10/23/2024 06:53 Receipt Acknowledged By: 10/23/2024 13:24 /es/ OBINNA BUENROSTRO RN 10/23/2024 ADDENDUM STATUS: COMPLETED due for annual LDCT 11/18/2024. Per radiology note, has moved. Per JLV, established care at [facility]. Had a LDCT in [facility] [address] 03/27/2024 LungRADS 2. Contacted LCS Coordinator Jojo Jarrett for [facility] by secure message. MIREYA Jarrett attempted to reach [place] to coordinate screening and sent a letter requesting him to call her at [phone] ext [phone] or [phone]. Call #1 Called [place] to follow up on annual LDCT and to coordinate care in [place]. No response at number on file. Left HIPPA compliant voicemail requesting call back to [phone] /es/ OBINNA BUENROSTRO RN Signed: 10/23/2024 13:36 10/29/2024 ADDENDUM STATUS: COMPLETED Received secure message from LCS coordinator Jojo Jarrett at [facility] who stated that she was in touch with and enrolled him in LCS Program for follow up in [place]. Per [facility]LV documentation: The has decided to enroll in the Lung Screening Program: Yes LDCT ordered: Yes enrolled in the LSS program. Results and coordination of care will be made by the LSS team. Clinical Indications for Initial Screening CT: 69yr old male, former smoker, started smoking at the age of 14, on average smoked 1pk a day for 50yrs; 50PY Hx; quit in 2022, congratulated for quitting. Asymptomatic screened for appropriateness for LCS. 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 Educated on the importance of annual LCS and the imaging process. in agreement to participate in the Lung Cancer Screening and Surveillance (LSS) Program. Also informed [place] he will be contacted by Radiology by letter/phone to schedule his Annual LDCT for lung cancer screening - Binta otero understanding. Binta otero was enrolled in LCS in [place], currently in [place] but should be back for Mar for Annual Screening. Annual LDCT on or about 03/27/2025 will be removed from LCS platform at this time and follow up in [place] for care. LCS team will remain as resouce for [place]. /es/ OBINNA BUENROSTRO RN Signed: 10/29/2024 10:49 JENN BATES [facility]
--- OUTSIDE RECORDS SUMMARY | 2024-10-23 05:24 | XMS_ITS | Encounter Summary ---
Author Name [facility] [place] [place] Organization [facility] [place] Address [address] [place] [address] Care Team Providers Care Patient Navigator Name Role Phone AMANDEEP PETERS Primary Care [...] PART A May 04, 2019 PART A [id number] BURKS,AN CAT PATIENT MEDICARE (WNR) MEDICARE (M) PART B May 04, 2019 PART B [id number] BURKS,AN CAT PATIENT MEDICARE (WNR) MEDICARE (M) PART A October 02, 2018 PART A [id number] BURKS,AN CAT PATIENT MEDICARE (WNR) MEDICARE (M) PART B October 02, 2018 PART B [id number] [phone] KIMMIE,ALVARO CAT PATIENT Selected Encounter This section includes the information on record at [place] for the Encounter. Date/Time Encounter Type Encounter Description Reason Pro vider Source October 23, 2024 09:24 AM Outpatient Encounter TELEPHONE/MEDICINE IHE Encounter Template Text not used by [place] Plan of Treatment: Future Appointments (+ 6 months) and Future Tests (+/- 45 days) The Plan of Treatment section includes future care activities for the patient from all [place] treatmentfacilities. This section includes future appointments and [...] 26, 2025 10:00 AM AMBULATORY - MEDICINE [facility] Mar 04, 2025 11:00 AM AMBULATORY - SURGERY [facility] Social History: Smoking Status (Most current) [...] 2017 03:31 PM CURRENT TOBACCO USER [facility] Tobacco Use History This section includes a history of the smoking, or tobacco-related health factors, that were collected on or before the date of the Encounter. The data comes from the [place] facility where the Encounter took place. Date/Time Smoking Status/Tobacco Use Comment F acility Jan 04, 2017 03:31 PM TOB INFO ON NON-VA STOP SMOKING CLINIC [facility] Jan 04, 2017 03:31 PM TOBACCO OFFERED PT MEDS (PROVIDE R) [facility] May 31, 2011 09:24 AM QUIT TOBACCO IN THE LAST 12 OCTAVIO [facility] Advance Directives: All historical and [...] 13, 2023 ADVANCE DIRECTIVE DISCUSSION VÍCTOR HAMPTON [facility] Jan 16, 2008 ADVANCE DIRECTIVE GIBJENNIFERROBERTA [facility] Jan 16, 2008 ADVANCE DIRECTIVE [place]JUANA DE DIOSN Kai [facility] Encounter Notes: All associated encounter notes This section contains the clinical notes associated to the Encounter. Date/Time Encounter Note(s) Provider Source October 23, 2024 09:27 AM LETTERS: LOCAL TITLE: LETTER TO PATIENT STANDARD TITLE: LETTERS DATE OF NOTE: OCTOBER 23, 2024@09:27 ENTRY DATE: OCTOBER 23, 2024@09:28:05 AUTHOR: JOJO JARRETT I EXP COSIGNER: URGENCY: STATUS: COMPLETED October ROSE MARY STEVE BURKS [address] [place], [place] [address] Dear Mr. ROSE MARY BURKS: We have received a referral from your primary care provider and have been unable to reach you by phone, regarding participation in the [facility] Lung Screening and Surveillance (LSS) program. Kindly call the Lung Screening and Surveillance coordinator at [phone] Ext [phone] at your convenience. This will be a short telephone visit to discuss in detail the program benefits and risk to you, answer any questions you may have, and your interest in participating. Regardless of your decision, we would kindly ask that you call us to let us know your choice. If you are not interested at this time but would like to be contacted in the future, we will be happy to call again. Either way we look forward to hearing from you. If you have already contacted the LSS coordinators, please disregard this letter. Thank you for your service to our country! Sincerely, Jojo Jarrett RN Lung Screening and Surveillance Salon Supervisor [facility] [phone] extension [phone] JOJO JARRETT I [facility]
--- OUTSIDE RECORDS SUMMARY | 2024-10-23 05:24 | XMS_ITS | Encounter Summary ---
Author Name [facility] [place] [facility] [place] [facility] [place] Address [address] [place] [address] Care Team Providers Care Insurance Examining Clerk Name Role Phone AMANDEEP PETERS Primary Care [...] PART A May 04, 2019 PART A [id number] BURKS,AN CAT PATIENT MEDICARE (WNR) MEDICARE (M) PART B May 04, 2019 PART B [id number] BURKS,AN CAT PATIENT MEDICARE (WNR) MEDICARE (M) PART A October 02, 2018 PART A [id number] [phone] BURKS,AN CAT PATIENT MEDICARE (WNR) MEDICARE (M) PART B October 02, 2018 PART B [id number] [phone] KIMMIE,ALVARO CAT PATIENT Selected Encounter This section includes the information on record at [place] for the Encounter. Date/Time Encounter Type Encounter Description Reason Pro vider Source October 23, 2024 09:24 AM Outpatient Encounter TELEPHONE/MEDICINE IHE Encounter Template Text not used by [place] Plan of Treatment: Future Appointments (+ 6 months) and Future Tests (+/- 45 days) The Plan of Treatment section includes future care activities for the patient from all [place] treatmentfacilities. This section includes future appointments and future orders which are active, pending or scheduled. Future Appointments This section includes appointments that were scheduled to occur 6 months from the date of the Encounter, up to a maximum of 20 appointments. The data comes from all [place] treatment facilities. Appointment Date/Time Appointment Type Appointme nt Facility Name Feb 26, 2025 10:00 AM AMBULATORY - MEDICINE [facility] Mar 04, 2025 11:00 AM AMBULATORY - SURGERY [facility] Social History: Smoking Status (Most current) and Tobacco Use (All prior to encounter date) This section includes the most current, and the historical, smoking and tobacco- related health factors from the [place] facility where the Encounter took place. Current Smoking Status This section includes the most current smoking, or tobacco-related health factor, from the [place] facility where the Encounter took place. Date/Time Current Smoking Status Comment Facil ity Jan 04, 2017 03:31 PM CURRENT TOBACCO USER [facility] Tobacco Use History This section includes a history of the smoking, or tobacco-related health factors, that were collected on or before the date of the Encounter. The data comes from the [place] facility where the Encounter took place. Date/Time Smoking Status/Tobacco Use Comment F acility Jan 04, 2017 03:31 PM TOB INFO ON NON-VA STOP SMOKING CLINIC [facility] Jan 04, 2017 03:31 PM TOBACCO OFFERED PT MEDS (PROVIDE R) [facility] May 31, 2011 09:24 AM QUIT TOBACCO IN THE LAST 12 OCTAVIO [facility] Advance Directives: All historical and current Section Date Range: From patient's date of to the date document was created. This section includes ALL of a patient's completed or amended [place] Advance and Rescinded Directives. The entries below indicate that a directive exists for the patient, but an actual copy is not included with this document. The data comes from all [place] facilities. Date Advance Directives Provider Source Jun 13, 2023 ADVANCE DIRECTIVE DISCUSSION VÍCTOR HAMPTON [facility] Jan 16, 2008 ADVANCE DIRECTIVE GIBOO,ROBERTA C [facility] Jan 16, 2008 ADVANCE DIRECTIVE RALPH DE DIOS [facility] Encounter Notes: All associated encounter notes This section contains the clinical notes associated to the Encounter. Date/Time Encounter Note(s) Provider Source October 23, 2024 09:30 AM PULMONARY NOTE: LOCAL TITLE: LUNG CANCER SCREENING LDCT - HISTORICAL STANDARD TITLE: PULMONARY NOTE DATE OF NOTE: OCTOBER 23, 2024@09:30:28 ENTRY DATE: OCTOBER 23, 2024@09:30:28 AUTHOR: CLINICAL,DEVICE PRO EXP COSIGNER: URGENCY: STATUS: COMPLETED DOCUMENT IN VISTA IMAGING SEE FULL REPORT IN [facility]ISTA [facility]ING SIGNATURE NOT REQUIRED SEE SIGNATURE IN VISTA IMAGING (TOMAS (MAIK)) AUTO-INSTRUMENT DIAGNOSIS Procedure: PHO_LUNG LUNG Patient name : ROSE MARY BURKS Record Number : [id number] Lung Screening Program Chart Eligibility Note Date of chart review: 10/23/2024 The participant was identified as a potential lung screening candidate by: referral Date of Referral: 10/23/2024 Specialty of referring provider: MAIK Gupta; First attempt, Unable to reach [place] at ph. to discuss participation in the Lung Cancer Screening and Surveillance (LSS) clinic. Left VM to call back LCS team at ext [phone], or [phone]. Since [place] could not be contacted a letter will be sent to [place] to call the LSS Clinic. Eligibility verification pending The participant is eligible based on chart review: no Administrative Closure: 10/23/2024 by: DEVICE PROXY SERVICE CLINICAL CLINICAL,DEVICE PROXY SERVICE [facility]
--- OUTSIDE RECORDS SUMMARY | 2024-10-29 06:15 | XMS_ITS | Encounter Summary ---
Author Name [facility] [place] [facility] [place] Organization [facility] [place] Address [address] [place] [address] Care Team Providers Care Booking Manager Name Role Phone AMANDEEP PETERS Primary [...] PART A May 04, 2019 PART A [id number] KIMMIE,ALVARO SHELTON PATIENT MEDICARE (WNR) MEDICARE (M) PART B May 04, 2019 PART B [id number] KIMMIE,ALVARO ZHENGONY PATIENT MEDICARE (WNR) MEDICARE (M) PART A October 02, 2018 PART A [id number] KIMMIE,ALVARO ZHENGONY PATIENT MEDICARE (WNR) MEDICARE (M) PART B October 02, 2018 PART B [id number] ALVARO BURKS PATIENT Selected Encounter This section includes the information on record at [place] for the Encounter. Date/Time Encounter Type Encounter Description Reason Provider Source October 29, 2024 10:15 AM PH1 ASSMT&MGMT NQHP 21-30 TELEPHONE/MEDICIN E ICD-10-CM F17.211 Nicotine dependence, cigarettes, in remission NICKY PARKER I [facility] Laura Encounter Template Text not used by ID Assessments - Encounter Diagnoses This section includes the primary and secondary diagnoses documented for the Encounter. Date/Time Primary/Secondary Diagnosis Diagnosis Name Provider Source October 29, 2024 10:15 AM PRIMARY Nicotine dependence, cigarettes, in remission NICKY PARKER I [facility] Plan of Treatment: Future Appointments (+ 6 months) and Future Tests (+/- 45 days) The Plan of Treatment section includes future care activities for the patient from all [place] treatmentfacilities. This section includes future appointments and future orders which are active, pending or scheduled. Future Appointments This section includes appointments that were scheduled to occur 6 months from the date of the Encounter, up to a maximum of 20 appointments. The data comes from all ID treatment facilities. Appointment Date/Time Appointment Type Appointme nt Facility Name Feb 26, 2025 10:00 AM [facility] Mar 04, 2025 11:00 AM AMBULATORY - SURGERY [facility] Social History: Smoking Status (Most current) and Tobacco Use (All prior to encounter date) This section includes the most current, and the historical, smoking and tobacco- related health factors from the ID facility where the Encounter took place. Current Smoking Status This section includes the most current smoking, or tobacco-related health factor, from the ID facility where the Encounter took place. Date/Time Current Smoking Status Comment Bautista calvillo Jan 04, 2017 03:31 PM CURRENT TOBACCO USER [facility] Tobacco Use History This section includes a history of the smoking, or tobacco-related health factors, that were collected on or before the date of the Encounter. The data comes from the ID facility where the Encounter took place. Date/Time Smoking Status/Tobacco Use Comment Geri acbaron Jan 04, 2017 03:31 PM TOB INFO ON NON-VA STOP SMOKING CLINIC [facility] Jan 04, 2017 03:31 PM TOBACCO OFFERED PT MEDS (PROVIDE R) [facility] May 31, 2011 09:24 AM QUIT TOBACCO IN THE LAST 12 [facility] Advance Directives: All historical and current Section Date Range: From patient's date of to the date document was created. This section includes ALL of a patient's completed or amended [place] Advance and Rescinded Directives. The entries below indicate that a directive exists for the patient, but an actual copy is not included with this document. The data comes from all [place] facilities. Date Advance Directives Provider Source Jun 13, 2023 ADVANCE DIRECTIVE DISCUSSION MEMOVÍCTOR [facility] Jan 16, 2008 ADVANCE DIRECTIVE ROBERTA GARCIA [facility] Jan 16, 2008 ADVANCE DIRECTIVE RALPH DE DIOS [facility] Encounter Notes: All associated encounter notes This section contains the clinical notes associated to the Encounter. Date/Time Encounter Note(s) Provider Source October 29, 2024 10:31 AM ADDENDUM: LOCAL TITLE: Addendum STANDARD TITLE: ADDENDUM DATE OF NOTE: OCTOBER 29, 2024@10:31:15 ENTRY DATE: OCTOBER 29, 2024@10:31:17 AUTHOR: NICKY PARKER I EXP COSIGNER: URGENCY: STATUS: COMPLETED Annual and Follow-Up screening, results, recommendations, and coordination of care for LSS participants will be made by the LCS Team, including any additional, imaging, consultations, and interventions in collaboration with Pulmonary service. Annual LDCT on or about: 03/27/2025 /kallei/ NICKY BURKETT RN Lung Cancer Screening Coordinator Signed: 10/29/2024 10:39 Receipt Acknowledged By: 10/29/2024 16:24 /kallie/ FINESSE ZHU MD ASSOCIATE INSTRUMENTATION AND CONTROL TECHNICIAN FOR RESEARCH 10/29/2024 11:01 /es/ RYAN MARLOW PHYSICIAN SENIOR BI ARCHITECT for [facility] 10/29/2024 11:26 /es/ ABHINAV VALDIVIA PHYSICIAN SENIOR BI ARCHITECT --- Original Document --- 10/29/24 LUNG CANCER SCREENING (CW): DOCUMENT IN VISTA IMAGING SEE FULL REPORT IN VISTA IMAGING SIGNATURE NOT REQUIRED SEE SIGNATURE IN VISTA IMAGING (VAPALS (LCS)) AUTO-INSTRUMENT DIAGNOSIS Procedure: PHO_LUNG LUNG Patient name : ROSE MARY BURKS Record Number : [id number] Lung Screening Program Intake Note Date of intake discussion contact: 10/29/2024 How did you learn about the Lung Screening Program?: Telephone Primary address verified: Yes Rural status: rural Preferred address and contact number: [address] [place] [address] Ever smoked?: Smoking Status: Past CIGs per day: 20 PPD: 1.00 # of years: 50.0 PPY: 50.00 Quit smoking on: 2022 Smoking cessation education provided: N/A Prior CT: 03/27/2024 Shared Decision Making: of age and exposure to cigarette smoke as described above, and without a current diagnosis or obvious symptoms suggestive of lung cancer, has been educated today about the estimated risk for lung cancer, the possibility of cure or life prolonging if an early lung cancer were to be found during screening, the possibility of imaging abnormalities not being lung cancer, the possibility of complications from additional diagnostic procedures, and the approximate amount of radiation exposure associated with each screening procedure. In addition, the has been educated today about the importance of adhering to annual lung screening, the possible impact of other medical conditions on the overall health status, the importance of avoiding exposure to cigarette smoke, available tobacco cessation programs and available lung screening services at this site. Education material was provided to the . Shared decision making was not applicable The has decided to enroll in the Lung Screening Program: Yes LDCT ordered: Yes Vina enrolled in the LSS program. Results and coordination of care will be made by the LSS team. Clinical Indications for Initial Screening CT: 69yr old male, former smoker, started smoking at the age of 14, on average smoked 1pk a day for 50yrs; 50PY Hx; quit in 2022, congratulated for quitting. Asymptomatic screened for appropriateness for LCS. 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 Educated on the importance of annual LCS and the imaging process. Vina in agreement to participate in the Lung Cancer Screening and Surveillance (LSS) Program. Also informed Vina he will be contacted by Radiology by letter/phone to schedule his Annual LDCT for lung cancer screening - Binta otero understanding. Binta otero was enrolled in LCS in [place], currently in [place] but should be back for [place] for Annual Screening. Annual LDCT on or about 03/27/2025 Administrative Closure: 10/29/2024 by: DEVICE PROXY SERVICE NICKY PETERSONARIE [facility] October 29, 2024 10:29 AM PULMONARY NOTE: LOCAL TITLE: LUNG CANCER SCREENING (CW) STANDARD TITLE: PULMONARY NOTE DATE OF NOTE: OCTOBER 29, 2024@10:29:28 ENTRY DATE: OCTOBER 29, 2024@10:29:28 AUTHOR: CLINICAL,DEVICE PRO EXP COSIGNER: URGENCY: STATUS: COMPLETED LUNG CANCER SCREENING (CW) Has ADDENDA DOCUMENT IN VISTA IMAGING SEE FULL REPORT IN VISTA IMAGING SIGNATURE NOT REQUIRED SEE SIGNATURE IN VISTA IMAGING (VAPALS (LCS)) AUTO-INSTRUMENT DIAGNOSIS Procedure: PHO_LUNG LUNG Patient name : ROSE MARY BURKS Record Number : [id number] Lung Screening Program Intake Note Date of intake discussion contact: 10/29/2024 How did you learn about the Lung Screening Program?: Telephone Primary address verified: Yes Rural status: rural Preferred address and contact number: [address] [place] [address] Ever smoked?: Smoking Status: Past CIGs per day: 20 PPD: 1.00 # of years: 50.0 PPY: 50.00 Quit smoking on: 2022 Smoking cessation education provided: N/A Prior CT: 03/27/2024 Shared Decision Making: Vina of age and exposure to cigarette smoke as described above, and without a current diagnosis or obvious symptoms suggestive of lung cancer, has been educated today about the estimated risk for lung cancer, the possibility of cure or life prolonging if an early lung cancer were to be found during screening, the possibility of imaging abnormalities not being lung cancer, the possibility of complications from additional diagnostic procedures, and the approximate amount of radiation exposure associated with each screening procedure. In addition, the has been educated today about the importance of adhering to annual lung screening, the possible impact of other medical conditions on the overall health status, the importance of avoiding exposure to cigarette smoke, available tobacco cessation programs and available lung screening services at this site. Education material was provided to the . Shared decision making was not applicable The has decided to enroll in the [...] screened for appropriateness for LCS. 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 Educated on the importance of annual LCS and the imaging process. in agreement to participate in the Lung Cancer Screening and Surveillance (LSS) Program. Also informed he will be contacted by Radiology by letter/phone to schedule his Annual LDCT for lung cancer screening - Binta otero understanding. Binta otero was enrolled in LCS in [place], currently in [place] but should be back for [facility] for Annual Screening. Annual LDCT on or about 03/27/2025 Administrative Closure: 10/29/2024 by: DEVICE PROXY SERVICE CLINICAL 10/29/2024 ADDENDUM STATUS: COMPLETED Annual and Follow-Up screening, results, recommendations, and coordination of care for LSS participants will be made by the LCS Team, including any additional, imaging, consultations, and interventions in collaboration with Pulmonary service. Annual LDCT on or about: 03/27/2025 /kallie/ NICKY BURKETT RN Lung Cancer Screening Coordinator Signed: 10/29/2024 10:39 Receipt Acknowledged By: * AWAITING SIGNATURE * FINESSE ZHU * AWAITING SIGNATURE * HILARIO CABRAL * AWAITING SIGNATURE * ABHINAV VALDIVIA CLINICAL,DEVICE PROXY SERVICE [facility]
--- OUTSIDE RECORDS SUMMARY | 2024-10-29 06:50 | XMS_ITS | Encounter Summary ---
Author Name [facility] [place] Address [address] [place] [address] Care Team Providers Care Flame Hardening Machine Setter Name Role Phone AMANDEEP PETERS Primary Care [...] PART A May 04, 2019 PART A [id number] KIMMIE,ALVARO SHELTON PATIENT MEDICARE (WNR) MEDICARE (M) PART B May 04, 2019 PART B [id number] BURKS,AN CAT PATIENT MEDICARE (WNR) MEDICARE (M) PART A October 02, 2018 PART A [id number] KIMMIE,ALVARO ZHENGONY PATIENT MEDICARE (WNR) MEDICARE (M) PART B October 02, 2018 PART B [id number] KIMMIE,ALVARO SHELTON PATIENT Selected Encounter This section includes the information on record at [place] for the Encounter. Date/Time Encounter Type Encounter Description Reason Pro vider Source October 29, 2024 10:50 AM Outpatient Encounter ADMIN PAT ACTIVTIES (MASNONCT) IHE Encounter Template Text not used by [facility] Plan of Treatment: Future Appointments (+ 6 months) and Future Tests (+/- 45 days) The Plan of Treatment section includes future care activities for the patient from all [place] treatmentfacilities. This section includes future appointments and [...] 2025 10:00 AM [facility]ATORY [facility] Mar 04, 2025 11:00 AM [facility] Social History: Smoking Status (Most current) [...] Facil ity Jun 13, 2023 10:00 AM [place]-TOBACCO FORMER USER [facility] Tobacco Use History This section includes a history of the smoking, or tobacco-related health factors, that were collected on or before the date of the Encounter. The data comes from the [place] facility where the Encounter took place. Date/Time Smoking Status/Tobacco Use Comment F acility Jun 13, 2023 10:00 AM [place]-TOBACCO QUIT < 1 YEAR [facility] Advance Directives: All historical and current [...] 13, 2023 ADVANCE DIRECTIVE DISCUSSION VÍCTOR [facility] Jan 16, 2008 ADVANCE DIRECTIVE [facility] Jan 16, 2008 ADVANCE DIRECTIVE RALPH DE DIOS [facility] Encounter Notes: All associated encounter notes This section contains the clinical notes associated to the Encounter. Date/Time Encounter Note(s) Provider Source October 29, 2024 10:50 AM HEMATOLOGY AND ONC OLOGY NOTE: LOCAL TITLE: LUNG CANCER SCREENING DOCUMENTATION STANDARD TITLE: HEMATOLOGY AND ONCOLOGY NOTE DATE OF NOTE: OCTOBER 29, 2024@10:50 ENTRY DATE: OCTOBER 29, 2024@10:50:27 AUTHOR: OBINNA BUENROSTRO EXP COSIGNER: URGENCY: STATUS: COMPLETED Lung Cancer Screening Patient Management Patient has moved: Notified LCS Coordinator at receiving station. Comment: [place] enrolled in LCS program at [facility] for follow up /es/ OBINNA BUENROSTRO RN Signed: 10/29/2024 10:51 OBINNA BUENROSTRO [facility]
--- OUTSIDE RECORDS SUMMARY | 2024-11-06 20:00 | XMS_ITS | Encounter Summary ---
Author Name [facility] [place] Organization [place] Address [address] [place] [address] Care Team Providers Care Stockroom Helper Name Role Phone AMANDEEP PETERS Primary Care [...] PART A May 04, 2019 PART A [id number] BURKS,AN CAT PATIENT MEDICARE (WNR) MEDICARE (M) PART B May 04, 2019 PART B [id number] BURKS,AN CAT PATIENT MEDICARE (WNR) MEDICARE (M) PART A October 02, 2018 PART A [id number] BURKS,AN CAT PATIENT MEDICARE (WNR) MEDICARE (M) PART B October 02, 2018 PART B [id number] [phone] KIMMIE,ALVARO CAT PATIENT Selected Encounter This section includes the information on record at [place] for the Encounter. Date/Time Encounter Type Encounter Description Reason Pro vider Source Nov 07, 2024 12:00 AM Outpatient Encounter EVENT (HISTORICAL) IHE Encounter Template Text not used by [place] Plan of Treatment: Future Appointments (+ 6 months) and Future Tests (+/- 45 days) The Plan of Treatment section includes future care activities for the patient from all [place] treatmentfacilities. This section includes future appointments and future orders which are active, pending or scheduled. Future Appointments This section includes appointments that were scheduled to occur 6 months from the date of the Encounter, up to a maximum of 20 appointments. The data comes from all [place] treatment facilities. Appointment Date/Time Appointment Type Appointme nt Facility Name Feb 26, 2025 10:00 AM AMBULATORY - MEDICINE [facility] Mar 04, 2025 11:00 AM AMBULATORY - SURGERY [facility] Social History: Smoking Status (Most current) and Tobacco Use (All prior to encounter date) This section includes the most current, and the historical, smoking and tobacco- related health factors from the [place] facility where the Encounter took place. Current Smoking Status This section includes the most current smoking, or tobacco-related health factor, from the [place] facility where the Encounter took place. Date/Time Current Smoking Status Comment Facil ity Jan 04, 2017 03:31 PM CURRENT TOBACCO USER [facility] Tobacco Use History This section includes a history of the smoking, or tobacco-related health factors, that were collected on or before the date of the Encounter. The data comes from the [place] facility where the Encounter took place. Date/Time Smoking Status/Tobacco Use Comment F acility Jan 04, 2017 03:31 PM TOB INFO ON NON-VA STOP SMOKING CLINIC [facility] Jan 04, 2017 03:31 PM TOBACCO OFFERED PT MEDS (PROVIDE R) [facility] May 31, 2011 09:24 AM QUIT TOBACCO IN THE LAST 12 [facility] Advance Directives: All historical and current Section Date Range: From patient's date of to the date document was created. This section includes ALL of a patient's completed or amended [place] Advance and Rescinded Directives. The entries below indicate that a directive exists for the patient, but an actual copy is not included with this document. The data comes from all [place] facilities. Date Advance Directives Provider Source Jun 13, 2023 ADVANCE DIRECTIVE DISCUSSION VÍCTOR [facility] Jan 16, 2008 ADVANCE DIRECTIVE ROBERTA GARCIA [facility] Jan 16, 2008 ADVANCE DIRECTIVE RALPH DE DIOS [facility]
--- OUTSIDE RECORDS SUMMARY | 2024-11-07 12:45 | XMS_ITS | Encounter Summary ---
Author Name [facility] [place] Address [address] [place] [address] Care Team Providers Care Cardiovascular Surgical Tech Name Role Phone AMANDEEP PETERS Primary Care [...] PART A May 04, 2019 PART A [id number] KIMMIE,ALVARO SHELTON PATIENT MEDICARE (WNR) MEDICARE (M) PART B May 04, 2019 PART B [id number] BURKS,AN CAT PATIENT MEDICARE (WNR) MEDICARE (M) PART A October 02, 2018 PART A [id number] BURKS,ALVARO ZHENGONY PATIENT MEDICARE (WNR) MEDICARE (M) PART B October 02, 2018 PART B [id number] [id number] [phone] KIMMIE,ALVARO SHELTON PATIENT Selected Encounter This section includes the information on record at [place] for the Encounter. Date/Time Encounter Type Encounter Description Reason Pro vider Source Nov 07, 2024 04:45 PM Outpatient Encounter ADMIN PAT ACTIVTIES (MASNONCT) IHE Encounter Template Text not used by [facility] Plan of Treatment: Future Appointments (+ 6 months) and Future Tests (+/- 45 days) The Plan of Treatment section includes future care activities for the [facility] [place] [facility] This section includes future appointments and future orders which are active, pending or scheduled. Future Appointments This section includes appointments that were scheduled to occur 6 months from the date of the Encounter, up to a maximum of 20 appointments. The data comes from all [place] treatment facilities. Appointment Date/Time Appointment Type Appointme nt Facility Name Feb 26, 2025 10:00 AM AMBULATORY - MEDICINE [facility] Mar 04, 2025 11:00 AM AMBULATORY - SURGERY [facility] Social History: Smoking Status (Most current) and Tobacco Use (All prior to encounter date) This section includes the most current, and the historical, smoking and tobacco- related health factors from the [place] facility where the Encounter took place. Current Smoking Status This section includes the most current smoking, or tobacco-related health factor, from the [place] facility where the Encounter took place. Date/Time Current Smoking Status Comment Bautista ity Jan 04, 2017 03:31 PM CURRENT TOBACCO USER [facility] Tobacco Use History This section includes a history of the smoking, or tobacco-related health factors, that were collected on or before the date of the Encounter. The data comes from the [place] facility where the Encounter took place. Date/Time Smoking Status/Tobacco Use Comment F acility Jan 04, 2017 03:31 PM TOB INFO ON NON-VA STOP SMOKING CLINIC [facility] Jan 04, 2017 03:31 PM TOBACCO OFFERED PT MEDS (PROVIDE R) [facility] May 31, 2011 09:24 AM QUIT TOBACCO IN THE LAST 12 [facility] Advance Directives: All historical and current Section Date Range: From patient's date of to the date document was created. This section includes ALL of a patient's completed or amended [place] Advance and Rescinded Directives. The entries below indicate that a directive exists for the patient, but an actual copy is not included with this document. The data comes from all [place] facilities. Date Advance Directives Provider Source Jun 13, 2023 ADVANCE DIRECTIVE DISCUSSION VÍCTOR [facility] Jan 16, 2008 ADVANCE DIRECTIVE ROBERTA GARCIA [facility] Jan 16, 2008 ADVANCE DIRECTIVE RALPH DE DIOS [facility] Encounter Notes: All associated encounter notes This section contains the clinical notes associated to the Encounter. Date/Time Encounter Note(s) Provider Source Nov 07, 2024 04:45 PM ADMINISTRATIVE NOT E: LOCAL TITLE: MSE ADDITIONAL CALL STANDARD TITLE: ADMINISTRATIVE NOTE DATE OF NOTE: NOV 07, 2024@16:45 ENTRY DATE: NOV 07, 2024@16:45:20 AUTHOR: JUANJOSE ELIZABETH EXP COSIGNER: URGENCY: STATUS: COMPLETED Attempt #1 (no VM): 1st Attempt-An attempt was made to contact the patient regarding scheduling the ordered exam. Patient could not be contacted and we are unable to leave a voice message. A second attempt will be made at a later date. Exam: LDCT W/3D POST PROCESSING /es/ JUANJOSE ELIZABETH MSA RAD-ADV Signed: 11/07/2024 16:46 JUANJOSE ELIZABETH [facility]
--- OUTSIDE RECORDS SUMMARY | 2024-11-23 05:48 | XMS_ITS | Continuity of Care Document ---
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 kU/L are undetermine d and intended for specialist use. TEST PERFORMED AT: [facility] [place] [id number] Director: Joshua Medina MD, PhD, STEVE TEST PERFORMED AT: TEST PERFORMED AT: [facility] [place] [phone] [place] [address] Director: Joshua Medina MD, PhD, STEVE Director: Joshua Medina MD, PhD, STEVE Ordering Provider: HILARIO CABRAL Report Released Date/Time: Feb 29, 2024 01:30 PM Reporting Lab: [address] [address] Performing Lab: [facility] ALLERGEN FOOD PANEL PAPRIKA IGE AB [UNITS/VOL UME] IN SERUM <0.10kU/ L 02/28 Specimen Type: SERUM Comment: TEST PERFORMED AT: [facility] [place] [id number] Director: Joshua Medina MD, PhD, STEVE TEST PERFORMED AT: [address] [address] Director: Joshua Medina MD, PhD, STEVE TEST PERFORMED AT: [address] [address] Director: Joshua Medina MD, PhD, STEVE TEST PERFORMED AT: [address] [address] Director: Joshua Medina MD, PhD, STEVE TEST PERFORMED AT: [address] [address] Director: Joshua Medina MD, PhD, STEVE TEST PERFORMED AT: [address] [address] Director: Joshua Medina MD, PhD, STEVE TEST PERFORMED AT: [address] [address] Director: Joshua Medina MD, PhD, STEVE TEST PERFORMED AT: [address] [address] Director: Joshua Medina MD, PhD, STEVE TEST PERFORMED AT: [address] [address] Director: Joshua Medina MD, PhD, STEVE TEST PERFORMED AT: [address] [address] Director: Joshua Medina MD, PhD, STEVE TEST PERFORMED AT: [address] [address] Director: Joshua Medina MD, PhD, STEVE TEST PERFORMED AT: [address] [address] Director: Joshua Medina MD, PhD, STEVE TEST PERFORMED AT: [address] [address] Director: Joshua Medina MD, PhD, STEVE TEST PERFORMED AT: [address] [address] Director: Joshua Medina MD, PhD, STEVE TEST PERFORMED AT: [address] [address] Director: Joshua Medina MD, PhD, STEVE TEST PERFORMED AT: [address] [address] Director: Joshua Medina MD, PhD, STEVE TEST PERFORMED AT: [address] [address] Director: Joshua Medina MD, PhD, STEVE TEST PERFORMED AT: [address] [address] Director: Joshua Medina MD, PhD, STEVE TEST PERFORMED AT: [address] [address] Director: Joshua Medina MD, PhD, STEVE TEST PERFORMED AT: [address] [address] Director: Joshua Medina MD, PhD, STEVE TEST PERFORMED AT: [address] [address] Director: Joshua Medina MD, PhD, STEVE TEST PERFORMED AT: [address] [address] Director: Joshua Medina MD, PhD, STEVE TEST PERFORMED AT: [facility] [employer] [address] [address] Director: Joshua Medina MD, PhD, STEVE TEST PERFORMED AT: [address] [address] Director: Joshua Medina MD, PhD, STEVE TEST PERFORMED AT: [facility] [address] [place] [address] Director: Joshua Medina MD, PhD, STEVE INTERPRETAT ION SPECIFIC LEVEL OF ALLERGEN IGE CLASS kU/L SPECIFIC IGE ANTIBODY -------- --------- ----- 0 <0.10 ABSENT/UNDE TECTABLE 0/1 0.10-0.34 VERY LOW LEVEL 1 0.35-0.69 LOW LEVEL 2 0.70-3.49 MODERATE LEVEL 3 3.50-17.4 HIGH LEVEL 4 17.5-49.9 VERY HIGH LEVEL 5 50-100 VERY HIGH LEVEL 6 >100 VERY HIGH LEVEL The clinical relevance of allergen results of 0.10-0.34 kU/L are undetermine d and intended for specialist use. TEST PERFORMED AT: [facility] [place] [id number] Director: Joshua Medina MD, PhD, STEVE TEST PERFORMED AT: TEST PERFORMED AT: [facility] [employer] [place] [phone] [place] [address] Director: Joshua Medina MD, PhD, STEVE Director: Joshua Medina MD, PhD, STEVE Ordering Provider: HILARIO CABRAL Report Released Date/Time: Feb 29, 2024 01:30 PM Reporting Lab: [address] [address] Performing Lab: [facility] ALLERGEN FOOD PANEL CABBAGE IGE AB [UNITS/VOL UME] IN SERUM <0.10kU/ L 02/28 Specimen Type: SERUM Comment: TEST PERFORMED AT: [facility] [place] [id number] Director: Joshua Medina MD, PhD, STEVE TEST PERFORMED AT: [facility] [address] [address] Director: Joshua Medina MD, PhD, STEVE TEST PERFORMED AT: [facility] [address] [place] [address] Director: Joshua Medina MD, PhD, STEVE TEST PERFORMED AT: [address] [address] Director: Joshua Medina MD, PhD, STEVE TEST PERFORMED AT: [address] [address] Director: Joshua Medina MD, PhD, STEVE TEST PERFORMED AT: [address] [address] Director: Joshua Medina MD, PhD, STEVE TEST PERFORMED AT: [address] [address] Director: Joshua Medina MD, PhD, STEVE TEST PERFORMED AT: [address] [address] Director: Joshua Medina MD, PhD, STEVE TEST PERFORMED AT: [address] [address] Director: Joshua Medina MD, PhD, STEVE TEST PERFORMED AT: [address] [address] Director: Joshua Medina MD, PhD, STEVE TEST PERFORMED AT: [address] [address] Director: Joshua Medina MD, PhD, STEVE TEST PERFORMED AT: [address] [address] Director: Joshua Medina MD, PhD, STEVE TEST PERFORMED AT: [address] [address] Director: Joshua Medina MD, PhD, STEVE TEST PERFORMED AT: [address] [address] Director: Joshua Medina MD, PhD, STEVE TEST PERFORMED AT: [facility] [place] [phone] Director: Joshua Medina MD, PhD, STEVE TEST PERFORMED AT: [facility] [place] [id number] Director: Joshua Medina MD, PhD, STEVE TEST PERFORMED AT: [place] [phone] Director: Joshua Medina MD, PhD, STEVE TEST PERFORMED AT: [facility] [place] [phone] Director: Joshua Medina MD, PhD, STEVE TEST PERFORMED AT: [place] [phone] Director: Joshua Medina MD, PhD, STEVE TEST PERFORMED AT: [facility] [place] [phone] Director: Joshua Medina MD, PhD, STEVE TEST PERFORMED AT: [facility] [place] [phone] Director: Joshua Medina MD, PhD, STEVE TEST PERFORMED AT: [place] [address] Director: Joshua Medina MD, PhD, STEVE TEST PERFORMED AT: [facility] [place] [id number] Director: Joshua Medina MD, PhD, STEVE TEST PERFORMED AT: [facility] [place] [id number] Director: Joshua Medina MD, PhD, STEVE TEST PERFORMED AT: [facility] [place] [phone] Director: Joshua Medina MD, PhD, STEVE INTERPRETAT ION SPECIFIC LEVEL OF ALLERGEN IGE CLASS kU/L SPECIFIC IGE ANTIBODY -------- --------- ----- 0 <0.10 ABSENT/UNDE TECTABLE 0/1 0.10-0.34 VERY LOW LEVEL 1 0.35-0.69 LOW LEVEL 2 0.70-3.49 MODERATE LEVEL 3 3.50-17.4 HIGH LEVEL 4 17.5-49.9 VERY HIGH LEVEL 5 50-100 VERY HIGH LEVEL 6 >100 VERY HIGH LEVEL The clinical relevance of allergen results of 0.10-0.34 kU/L are undetermine d and intended for specialist use. TEST PERFORMED AT: [facility] [place] [id number] Director: Joshua Medina MD, PhD, STEVE TEST PERFORMED AT: TEST PERFORMED AT: [facility] [employer] [address] [address] [place], [place] Director: Joshua Medina MD, PhD, STEVE Director: Joshua Medina MD, PhD, STEVE Ordering Provider: HILARIO CABRAL Report Released Date/Time: Feb 29, 2024 01:30 PM Reporting Lab: [address] [address] Performing Lab: [facility] ALLERGEN FOOD PANEL CARROT IGE AB [UNITS/VOL UME] IN SERUM <0.10kU/ L 02/28 Specimen Type: SERUM Comment: TEST PERFORMED AT: [facility] [place] [id number] Director: Joshua Medina MD, PhD, STEVE TEST PERFORMED AT: [facility] [address] [address] Director: Joshua Medina MD, PhD, STEVE TEST PERFORMED AT: [facility] [address] [address] Director: Joshua Medina MD, PhD, STEVE TEST PERFORMED AT: [facility] [address] [address] Director: Joshua Medina MD, PhD, STEVE TEST PERFORMED AT: [facility] [address] [address] Director: Joshua Medina MD, PhD, STEVE TEST PERFORMED AT: [address] [address] Director: Joshua Medina MD, PhD, STEVE TEST PERFORMED AT: [address] [address] Director: Joshua Medina MD, PhD, STEVE TEST PERFORMED AT: [address] [address] Director: Joshua Medina MD, PhD, STEVE TEST PERFORMED AT: [facility] [employer] [address] [address] Director: Joshua Medina MD, PhD, STEVE TEST PERFORMED AT: [address] [address] Director: Joshua Medina MD, PhD, STEVE TEST PERFORMED AT: [address] [address] Director: Joshua Medina MD, PhD, STEVE TEST PERFORMED AT: [facility] [address] [address] Director: Joshua Medina MD, PhD, STEVE TEST PERFORMED AT: [facility] [address] [address] Director: Joshua Medina MD, PhD, STEVE TEST PERFORMED AT: [facility] [address] [address] Director: Joshua Medina MD, PhD, STEVE TEST PERFORMED AT: [facility] [address] [address] Director: Joshua Medina MD, PhD, STEVE TEST PERFORMED AT: [facility] [address] [address] Director: Joshua Medina MD, PhD, STEVE TEST PERFORMED AT: [facility] [address] [address] Director: Joshua Medina MD, PhD, STEVE TEST PERFORMED AT: [address] [address] Director: Joshua Medina MD, PhD, STEVE TEST PERFORMED AT: [place] [phone] Director: Joshua Medina MD, PhD, STEVE TEST PERFORMED AT: [facility] [employer] [address] [address] Director: Joshua Medina MD, PhD, STEVE TEST PERFORMED AT: [place] [phone] Director: Joshua Medina MD, PhD, STEVE TEST PERFORMED AT: [place] [phone] Director: Joshua Medina MD, PhD, STEVE TEST PERFORMED AT: [place] [phone] Director: Joshua Medina MD, PhD, STEVE TEST PERFORMED AT: [place] [phone] Director: Joshua Medina MD, PhD, STEVE TEST PERFORMED AT: [place] [phone] Director: Joshua Medina MD, PhD, STEVE INTERPRETAT ION SPECIFIC LEVEL OF ALLERGEN IGE CLASS kU/L SPECIFIC IGE ANTIBODY -------- --------- ----- 0 <0.10 ABSENT/UNDE TECTABLE 0/1 0.10-0.34 VERY LOW LEVEL 1 0.35-0.69 LOW LEVEL 2 0.70-3.49 MODERATE LEVEL 3 3.50-17.4 HIGH LEVEL 4 17.5-49.9 VERY HIGH LEVEL 5 50-100 VERY HIGH LEVEL 6 >100 VERY HIGH LEVEL The clinical relevance of allergen results of 0.10-0.34 kU/L are undetermine d and intended for specialist use. TEST PERFORMED AT: [facility] [place] [id number] Director: Joshua Medina MD, PhD, STEVE TEST PERFORMED AT: TEST PERFORMED AT: [facility] [address] [place], [place] Director: Joshua Medina MD, PhD, STEVE Director: Joshua Medina MD, PhD, STEVE Ordering Provider: HILARIO CABRAL Report Released Date/Time: Feb 29, 2024 01:30 PM Reporting Lab: [address] [address] Performing Lab: [facility] ALLERGEN FOOD PANEL CHICKEN IGE AB [UNITS/VOL UME] IN SERUM <0.10kU/ L 02/28 Specimen Type: SERUM Comment: TEST PERFORMED AT: [facility] [place] [id number] Director: Joshua Medina MD, PhD, STEVE TEST PERFORMED AT: [facility] [place] [id number] Director: Joshua Medina MD, PhD, STEVE TEST PERFORMED AT: [facility] [address] [address] Director: Joshua Medina MD, PhD, STEVE TEST PERFORMED AT: [facility] [place] [id number] Director: Joshua Medina MD, PhD, STEVE TEST PERFORMED AT: [facility] [place] [id number] Director: Joshua Medina MD, PhD, STEVE TEST PERFORMED AT: [facility] [address] Director: Joshua Medina MD, PhD, STEVE TEST PERFORMED AT: [facility] [address] [address] Director: Joshua Medina MD, PhD, STEVE TEST PERFORMED AT: [address] [address] Director: Joshua Medina MD, PhD, STEVE TEST PERFORMED AT: [address] [address] Director: Joshua Medina MD, PhD, STEVE TEST PERFORMED AT: [address] [address] Director: Joshua Medina MD, PhD, STEVE TEST PERFORMED AT: [address] [address] Director: Joshua Medina MD, PhD, STEVE TEST PERFORMED AT: [address] [address] Director: Joshua Medina MD, PhD, STEVE TEST PERFORMED AT: [address] [address] Director: Joshua Medina MD, PhD, STEVE TEST PERFORMED AT: [address] [address] Director: Joshua Medina MD, PhD, STEVE TEST PERFORMED AT: [address] [address] Director: Joshua Medina MD, PhD, STEVE TEST PERFORMED AT: [address] [address] Director: Joshua Medina MD, PhD, STEVE TEST PERFORMED AT: [address] [address] Director: Joshua Medina MD, PhD, STEVE TEST PERFORMED AT: [address] [address] Director: Joshua Medina MD, PhD, STEVE TEST PERFORMED AT: [facility] [address] Director: Joshua Medina MD, PhD, STEVE TEST PERFORMED AT: [address] Director: Joshua Medina MD, PhD, STEVE TEST PERFORMED AT: [address] Director: Joshua Medina MD, PhD, STEVE TEST PERFORMED AT: [facility] [address] Director: Joshua Medina MD, PhD, STEVE TEST PERFORMED AT: [address] Director: Joshua Medina MD, PhD, STEVE TEST PERFORMED AT: [facility] [address] Director: Joshua Medina MD, PhD, STEVE TEST PERFORMED AT: [facility] [address] Director: Joshua Medina MD, PhD, STEVE INTERPRETAT ION SPECIFIC LEVEL OF ALLERGEN IGE CLASS kU/L SPECIFIC IGE ANTIBODY -------- --------- ----- 0 <0.10 ABSENT/UNDE TECTABLE 0/1 0.10-0.34 VERY LOW LEVEL 1 0.35-0.69 LOW LEVEL 2 0.70-3.49 MODERATE LEVEL 3 3.50-17.4 HIGH LEVEL 4 17.5-49.9 VERY HIGH LEVEL 5 50-100 VERY HIGH LEVEL 6 >100 VERY HIGH LEVEL The clinical relevance of allergen results of 0.10-0.34 kU/L are undetermine d and intended for specialist use. TEST PERFORMED AT: [facility] [place] [phone] Director: Joshua Medina MD, PhD, STEVE TEST PERFORMED AT: TEST PERFORMED AT: [facility] [place] [phone] [place] [address] Director: Joshua Medina MD, PhD, STEVE Director: Joshua Medina MD, PhD, STEVE Ordering Provider: HILARIO CABRAL Report Released Date/Time: Feb 29, 2024 01:30 PM Reporting Lab: [address] [address] Performing Lab: [facility] ALLERGEN FOOD PANEL CODFISH IGE AB [UNITS/VOL UME] IN SERUM <0.10kU/ L 02/28 Specimen Type: SERUM Comment: TEST PERFORMED AT: [facility] [place] [id number] Director: Joshua Medina MD, PhD, STEVE TEST PERFORMED AT: [facility] [place] [id number] Director: Joshua Medina MD, PhD, STEVE TEST PERFORMED AT: [facility] [place] [id number] Director: Joshua Medina MD, PhD, STEVE TEST PERFORMED AT: [facility] [place] [id number] Director: Joshua Medina MD, PhD, STEVE TEST PERFORMED AT: [facility] [place] [id number] Director: Joshua Medina MD, PhD, STEVE TEST PERFORMED AT: [facility] [address] Director: Joshua Medina MD, PhD, STEVE TEST PERFORMED AT: [facility] [place] [id number] Director: Joshua Medina MD, PhD, STEVE TEST PERFORMED AT: [facility] [place] [id number] Director: Joshua Medina MD, PhD, STEVE TEST PERFORMED AT: [facility] [address] [address] Director: Joshua Medina MD, PhD, STEVE TEST PERFORMED AT: [address] [address] Director: Joshua Medina MD, PhD, STEVE TEST PERFORMED AT: [address] [address] Director: Joshua Medina MD, PhD, STEVE TEST PERFORMED AT: [address] [address] Director: Joshua Medina MD, PhD, STEVE TEST PERFORMED AT: [address] [address] Director: Joshua Medina MD, PhD, STEVE TEST PERFORMED AT: [address] [address] Director: Joshua Medina MD, PhD, STEVE TEST PERFORMED AT: [address] [address] Director: Joshua Medina MD, PhD, STEVE TEST PERFORMED AT: [address] [address] Director: Joshua Medina MD, PhD, STEVE TEST PERFORMED AT: [address] [address] Director: Joshua Medina MD, PhD, STEVE TEST PERFORMED AT: [address] [address] Director: Joshua Medina MD, PhD, STEVE TEST PERFORMED AT: [address] [address] Director: Joshua Medina MD, PhD, STEVE TEST PERFORMED AT: [address] [address] Director: Joshua Medina MD, PhD, STEVE TEST PERFORMED AT: [facility] [place] [id number] Director: Joshua Medina MD, PhD, STEVE TEST PERFORMED AT: [facility] [address] [address] Director: Joshua Medina MD, PhD, STEVE TEST PERFORMED AT: [facility] [place] [id number] Director: Joshua Medina MD, PhD, STEVE TEST PERFORMED AT: [facility] [place] [id number] Director: Joshua Medina MD, PhD, STEVE TEST PERFORMED AT: [facility] [place] [id number] Director: Joshua Medina MD, PhD, STEVE INTERPRETAT ION SPECIFIC LEVEL OF ALLERGEN IGE CLASS kU/L SPECIFIC IGE ANTIBODY -------- --------- ----- 0 <0.10 ABSENT/UNDE TECTABLE 0/1 0.10-0.34 VERY LOW LEVEL 1 0.35-0.69 LOW LEVEL 2 0.70-3.49 MODERATE LEVEL 3 3.50-17.4 HIGH LEVEL 4 17.5-49.9 VERY HIGH LEVEL 5 50-100 VERY HIGH LEVEL 6 >100 VERY HIGH LEVEL The clinical relevance of allergen results of 0.10-0.34 kU/L are undetermine d and intended for specialist use. TEST PERFORMED AT: [facility] [address] [address] Director: Joshua Medina MD, PhD, STEVE TEST PERFORMED AT: TEST PERFORMED AT: [facility] [address] [address] [place] [address] Director: Joshua Medina MD, PhD, STEVE Director: Joshua Medina MD, PhD, STEVE Ordering Provider: HILARIO CABRAL Report Released Date/Time: Feb 29, 2024 01:30 PM Reporting Lab: [address] [address] Performing Lab: [facility] [place] [facility] ALLERGEN FOOD PANEL CORN IGE AB [UNITS/VOL UME] IN SERUM <0.10kU/ L 02/28 Specimen Type: SERUM Comment: TEST PERFORMED AT: [place] [address] Director: Joshua Medina MD, PhD, STEVE TEST PERFORMED AT: [place] [address] Director: Joshua Medina MD, PhD, STEVE TEST PERFORMED AT: [place] [address] Director: Joshua Medina MD, PhD, STEVE TEST PERFORMED AT: [facility] [address] Director: Joshua Medina MD, PhD, STEVE TEST PERFORMED AT: [employer] [address] [address] Director: Joshua Medina MD, PhD, STEVE TEST PERFORMED AT: [employer] [address] [address] Director: Joshua Medina MD, PhD, STEVE TEST PERFORMED AT: [employer] [address] [address] Director: Joshua Medina MD, PhD, STEVE TEST PERFORMED AT: [facility] [address] Director: Joshua Medina MD, PhD, STEVE TEST PERFORMED AT: [facility] [address] Director: Joshua Medina MD, PhD, STEVE TEST PERFORMED AT: [facility] [address] Director: Joshua Medina MD, PhD, STEVE TEST PERFORMED AT: [facility] [address] [address] Director: Joshua Medina MD, PhD, STEVE TEST PERFORMED AT: [address] [address] Director: Joshua Medina MD, PhD, STEVE TEST PERFORMED AT: [address] [address] Director: Joshua Medina MD, PhD, STEVE TEST PERFORMED AT: [address] [address] Director: Joshua Medina MD, PhD, STEVE TEST PERFORMED AT: [address] [address] Director: Joshua Medina MD, PhD, STEVE TEST PERFORMED AT: [address] [address] Director: Joshua Medina MD, PhD, STEVE TEST PERFORMED AT: [address] [address] Director: Joshua Medina MD, PhD, STEVE TEST PERFORMED AT: [address] [address] Director: Joshua Medina MD, PhD, STEVE TEST PERFORMED AT: [address] [address] Director: Joshua Medina MD, PhD, STEVE TEST PERFORMED AT: [address] [address] Director: Joshua Medina MD, PhD, STEVE TEST PERFORMED AT: [address] [address] Director: Joshua Medina MD, PhD, STEVE TEST PERFORMED AT: [facility] [address] [place] [address] Director: Joshua Medina MD, PhD, STEVE TEST PERFORMED AT: [facility] [place] [id number] Director: Joshua Medina MD, PhD, STVEE TEST PERFORMED AT: [facility] [place] [id number] Director: Joshua Medina MD, PhD, STEVE TEST PERFORMED AT: [facility] [place] [id number] Director: Joshua Mednia MD, PhD, STEVE INTERPRETAT ION SPECIFIC LEVEL OF ALLERGEN IGE CLASS kU/L SPECIFIC IGE ANTIBODY -------- --------- ----- 0 <0.10 ABSENT/UNDE TECTABLE 0/1 0.10-0.34 VERY LOW LEVEL 1 0.35-0.69 LOW LEVEL 2 0.70-3.49 MODERATE LEVEL 3 3.50-17.4 HIGH LEVEL 4 17.5-49.9 VERY HIGH LEVEL 5 50-100 VERY HIGH LEVEL 6 >100 VERY HIGH LEVEL The clinical relevance of allergen results of 0.10-0.34 kU/L are undetermine d and intended for specialist use. TEST PERFORMED AT: [facility] [place] [id number] Director: Joshua Medina MD, PhD, STEVE TEST PERFORMED AT: TEST PERFORMED AT: [facility] [address] [place], [place] Director: Joshua Medina MD, PhD, STEVE Director: Joshua Medina MD, PhD, STEVE Ordering Provider: HILARIO CABRAL Report Released Date/Time: Feb 29, 2024 01:30 PM Reporting Lab: [address] [address] Performing Lab: [facility] ALLERGEN FOOD PANEL CRAB IGE AB [UNITS/VOL UME] IN SERUM <0.10kU/ L 02/28 Specimen Type: SERUM Comment: TEST PERFORMED AT: [place] [phone] Director: Joshua Medina MD, PhD, STEVE TEST PERFORMED AT: [place] [phone] Director: Joshua Medina MD, PhD, STEVE TEST PERFORMED AT: [facility] [employer] [place] [id number] Director: Joshua Medina MD, PhD, STEVE TEST PERFORMED AT: [place] [phone] Director: Joshua Medina MD, PhD, STEVE TEST PERFORMED AT: [place] [id number] Director: Joshua Medina MD, PhD, STEVE TEST PERFORMED AT: [place] [phone] Director: Joshua Medina MD, PhD, STEVE TEST PERFORMED AT: [facility] [place] [id number] Director: Joshua Medina MD, PhD, STEVE TEST PERFORMED AT: [place] [phone] Director: Joshua Medina MD, PhD, STEVE TEST PERFORMED AT: [facility] [place] [phone] Director: Joshua Medina MD, PhD, STEVE TEST PERFORMED AT: [facility] [address] [address] Director: Joshua Medina MD, PhD, STEVE TEST PERFORMED AT: [facility] [address] [address] Director: Joshua Medina MD, PhD, STEVE TEST PERFORMED AT: [facility] [address] [place] [address] Director: Joshua Medina MD, PhD, SETVE TEST PERFORMED AT: [address] [address] Director: Joshua Medina MD, PhD, STEVE TEST PERFORMED AT: [address] [address] Director: Joshua Medina MD, PhD, STEVE TEST PERFORMED AT: [address] [address] Director: Joshua Medina MD, PhD, STEVE TEST PERFORMED AT: [address] [address] Director: Joshua Medina MD, PhD, STEVE TEST PERFORMED AT: [address] [address] Director: Joshua Medina MD, PhD, STEVE TEST PERFORMED AT: [address] [address] Director: Joshua Medina MD, PhD, STEVE TEST PERFORMED AT: [address] [address] Director: Joshua Medina MD, PhD, STEVE TEST PERFORMED AT: [address] [address] Director: Joshua Medina MD, PhD, STEVE TEST PERFORMED AT: [address] [address] Director: Joshua Medina MD, PhD, STEVE TEST PERFORMED AT: [address] [address] Director: Joshua Medina MD, PhD, STEVE TEST PERFORMED AT: [address] [address] Director: Joshua Medina MD, PhD, STEVE TEST PERFORMED AT: [facility] [place] [id number] Director: Joshua Medina MD, PhD, STEVE TEST PERFORMED AT: [facility] [place] [phone] Director: Joshua Medina MD, PhD, STEVE INTERPRETAT ION SPECIFIC LEVEL OF ALLERGEN IGE CLASS kU/L SPECIFIC IGE ANTIBODY -------- --------- ----- 0 <0.10 ABSENT/UNDE TECTABLE 0/1 0.10-0.34 VERY LOW LEVEL 1 0.35-0.69 LOW LEVEL 2 0.70-3.49 MODERATE LEVEL 3 3.50-17.4 HIGH LEVEL 4 17.5-49.9 VERY HIGH LEVEL 5 50-100 VERY HIGH LEVEL 6 >100 VERY HIGH LEVEL The clinical relevance of allergen results of 0.10-0.34 kU/L are undetermine d and intended for specialist use. TEST PERFORMED AT: [facility] [place] [id number] Director: Joshua Medina MD, PhD, STEVE TEST PERFORMED AT: TEST PERFORMED AT: [facility] [place] [phone] [place] [address] Director: Joshua Medina MD, PhD, STEVE Director: Joshua Medina MD, PhD, STEVE Ordering Provider: HILARIO CABRAL Report Released Date/Time: Feb 29, 2024 01:30 PM Reporting Lab: [address] [address] Performing Lab: [facility] ALLERGEN FOOD PANEL EGG WHITE IGE AB [UNITS/VOL UME] IN SERUM <0.10kU/ L 02/28 Specimen Type: SERUM Comment: TEST PERFORMED AT: [facility] [place] [id number] Director: Joshua Medina MD, PhD, STEVE TEST PERFORMED AT: [address] [address] Director: Joshua Medina MD, PhD, STEVE TEST PERFORMED AT: [address] [address] Director: Joshua Medina MD, PhD, STEVE TEST PERFORMED AT: [address] [address] Director: Joshua Medina MD, PhD, STEVE TEST PERFORMED AT: [address] [address] Director: Joshua Medina MD, PhD, STEVE TEST PERFORMED AT: [address] [address] Director: Joshua Medina MD, PhD, STEVE TEST PERFORMED AT: [address] [address] Director: Joshua Medina MD, PhD, STEVE TEST PERFORMED AT: [address] [address] Director: Joshua Medina MD, PhD, STEVE TEST PERFORMED AT: [address] [address] Director: Joshua Medina MD, PhD, STEVE TEST PERFORMED AT: [address] [address] Director: Joshua Medina MD, PhD, STEVE TEST PERFORMED AT: [facility] [address] [address] Director: Joshua Medina MD, PhD, STEVE TEST PERFORMED AT: [facility] [address] [address] Director: Joshua Medina MD, PhD, STEVE TEST PERFORMED AT: [facility] [address] [address] Director: Joshua Medina MD, PhD, STEVE TEST PERFORMED AT: [facility] [address] [address] Director: Joshua Medina MD, PhD, STEVE TEST PERFORMED AT: [address] [address] Director: Joshua Medina MD, PhD, STEVE TEST PERFORMED AT: [address] [address] Director: Joshua Medina MD, PhD, STEVE TEST PERFORMED AT: [facility] [address] [address] Director: Joshua Medina MD, PhD, STEVE TEST PERFORMED AT: [facility] [employer] [address] [address] Director: Joshua Medina MD, PhD, STEVE TEST PERFORMED AT: [address] [address] Director: Joshua Medina MD, PhD, STEVE TEST PERFORMED AT: [facility] [address] [address] Director: Joshua Medina MD, PhD, STEVE TEST PERFORMED AT: [address] [address] Director: Joshua Medina MD, PhD, STEVE TEST PERFORMED AT: [facility] [address] [address] Director: Joshua Medina MD, PhD, STEVE TEST PERFORMED AT: [facility] [address] [address] Director: Joshua Mdeina MD, PhD, STEVE TEST PERFORMED AT: [facility] [address] [address] Director: Joshua Medina MD, PhD, STEVE TEST PERFORMED AT: [facility] [address] [address] Director: Joshua Medina MD, PhD, STEVE INTERPRETAT ION SPECIFIC LEVEL OF ALLERGEN IGE CLASS kU/L SPECIFIC IGE ANTIBODY -------- --------- ----- 0 <0.10 ABSENT/UNDE TECTABLE 0/1 0.10-0.34 VERY LOW LEVEL 1 0.35-0.69 LOW LEVEL 2 0.70-3.49 MODERATE LEVEL 3 3.50-17.4 HIGH LEVEL 4 17.5-49.9 VERY HIGH LEVEL 5 50-100 VERY HIGH LEVEL 6 >100 VERY HIGH LEVEL The clinical relevance of allergen results of 0.10-0.34 kU/L are undetermine d and intended for specialist use. TEST PERFORMED AT: [facility] [place] [id number] Director: Joshua Medina MD, PhD, STEVE TEST PERFORMED AT: TEST PERFORMED AT: [facility] [place] [phone] [place] [address] Director: Joshua Medina MD, PhD, STEVE Director: Joshua Medina MD, PhD, STEVE Ordering Provider: HILARIO CABRAL Report Released Date/Time: Feb 29, 2024 01:30 PM Reporting Lab: [address] [address] Performing Lab: [facility] ALLERGEN FOOD PANEL GRAPE IGE AB [UNITS/VOL UME] IN SERUM <0.10kU/ L 02/28 Specimen Type: SERUM Comment: TEST PERFORMED AT: [facility] [place] [id number] Director: Joshua Medina MD, PhD, STEVE TEST PERFORMED AT: [facility] [place] [id number] Director: Joshua Medina MD, PhD, STEVE TEST PERFORMED AT: [facility] [place] [id number] Director: Joshua Medina MD, PhD, STEVE TEST PERFORMED AT: [facility] [address] [address] Director: Joshua Medina MD, PhD, STEVE TEST PERFORMED AT: [address] [address] Director: Joshua Medina MD, PhD, STEVE TEST PERFORMED AT: [address] [address] Director: Joshua Medina MD, PhD, STEVE TEST PERFORMED AT: [address] [address] Director: Joshua Medina MD, PhD, STEVE TEST PERFORMED AT: [address] [address] Director: Joshua Medina MD, PhD, STEVE TEST PERFORMED AT: [address] [address] Director: Joshua Medina MD, PhD, STEVE TEST PERFORMED AT: [address] [address] Director: Joshua Medina MD, PhD, STEVE TEST PERFORMED AT: [address] [address] Director: Joshua Medina MD, PhD, STEVE TEST PERFORMED AT: [address] [address] Director: Joshua Medina MD, PhD, STEVE TEST PERFORMED AT: [facility] [address] [address] Director: Joshua Medina MD, PhD, STEVE TEST PERFORMED AT: [facility] [employer] [address] [address] Director: Joshua Medina MD, PhD, STEVE TEST PERFORMED AT: [facility] [address] [address] Director: Joshua Medina MD, PhD, STEVE TEST PERFORMED AT: [facility] [address] [address] Director: Joshua Medina MD, PhD, STEVE TEST PERFORMED AT: [address] [address] Director: Joshua Medina MD, PhD, STEVE TEST PERFORMED AT: [place] [phone] Director: Joshua Medina MD, PhD, STEVE TEST PERFORMED AT: [address] [address] Director: Joshua Medina MD, PhD, STEVE TEST PERFORMED AT: [place] [phone] Director: Joshua Medina MD, PhD, STEVE TEST PERFORMED AT: [place] [phone] Director: Joshua Medina MD, PhD, STEVE TEST PERFORMED AT: [address] [address] Director: Joshua Medina MD, PhD, STEVE TEST PERFORMED AT: [place] [phone] Director: Joshua Medina MD, PhD, STEVE TEST PERFORMED AT: [place] [phone] Director: Joshua Medina MD, PhD, STEVE TEST PERFORMED AT: [address] [address] Director: Joshua Medina MD, PhD, STEVE INTERPRETAT ION SPECIFIC LEVEL OF ALLERGEN IGE CLASS kU/L SPECIFIC IGE ANTIBODY -------- --------- ----- 0 <0.10 ABSENT/UNDE TECTABLE 0/1 0.10-0.34 VERY LOW LEVEL 1 0.35-0.69 LOW LEVEL 2 0.70-3.49 MODERATE LEVEL 3 3.50-17.4 HIGH LEVEL 4 17.5-49.9 VERY HIGH LEVEL 5 50-100 VERY HIGH LEVEL 6 >100 VERY HIGH LEVEL The clinical relevance of allergen results of 0.10-0.34 kU/L are undetermine d and intended for specialist use. TEST PERFORMED AT: [facility] [place] [id number] Director: Joshua Medina MD, PhD, STEVE TEST PERFORMED AT: TEST PERFORMED AT: [facility] [address] [place], [place] Director: Joshua Medina MD, PhD, STEVE Director: Joshua Medina MD, PhD, STEVE Ordering Provider: HILARIO CABRAL Report Released Date/Time: Feb 29, 2024 01:30 PM Reporting Lab: [address] [address] Performing Lab: [facility] ALLERGEN FOOD PANEL LETTUCE IGE AB [UNITS/VOL UME] IN SERUM <0.10kU/ L 02/28 Specimen Type: SERUM Comment: TEST PERFORMED AT: [facility] [employer] [place] [id number] Director: Joshua Medina MD, PhD, STEVE TEST PERFORMED AT: [facility] [place] [phone] Director: Joshua Medina MD, PhD, STEVE TEST PERFORMED AT: [facility] [address] Director: Joshua Medina MD, PhD, STEVE TEST PERFORMED AT: [facility] [address] [address] Director: Joshua Medina MD, PhD, STEVE TEST PERFORMED AT: [facility] [address] [address] Director: Joshua Medina MD, PhD, STEVE TEST PERFORMED AT: [facility] [address] [address] Director: Joshua Medina MD, PhD, STEVE TEST PERFORMED AT: [address] [address] Director: Joshua Medina MD, PhD, STEVE TEST PERFORMED AT: [address] [address] Director: Joshua Medina MD, PhD, STEVE TEST PERFORMED AT: [address] [address] Director: Joshua Medina MD, PhD, STEVE TEST PERFORMED AT: [address] [address] Director: Joshua Medina MD, PhD, STEVE TEST PERFORMED AT: [address] [address] Director: Joshua Medina MD, PhD, STEVE TEST PERFORMED AT: [address] [address] Director: Joshua Medina MD, PhD, STEVE TEST PERFORMED AT: [address] [address] Director: Joshua Medina MD, PhD, STEVE TEST PERFORMED AT: [address] [address] Director: Joshua Medina MD, PhD, STEVE TEST PERFORMED AT: [address] [address] Director: Joshua Medina MD, PhD, STEVE TEST PERFORMED AT: [address] [address] Director: Joshua Medina MD, PhD, STEVE TEST PERFORMED AT: [address] [address] Director: Joshua Medina MD, PhD, STEVE TEST PERFORMED AT: [facility] [address] Director: Joshua Medina MD, PhD, STEVE TEST PERFORMED AT: [facility] [employer] [address] Director: Joshua Medina MD, PhD, STEVE TEST PERFORMED AT: [facility] [address] Director: Joshua Medina MD, PhD, STEVE TEST PERFORMED AT: [facility] [address] Director: Joshua Medina MD, PhD, STEVE TEST PERFORMED AT: [facility] [place] [address] Director: Joshua Medina MD, PhD, STEVE TEST PERFORMED AT: [facility] [place] [address] Director: Joshua Medina MD, PhD, STEVE TEST PERFORMED AT: [facility] [place] [address] Director: Joshua Medina MD, PhD, STEVE TEST PERFORMED AT: [facility] [place] [address] Director: Joshua Medina MD, PhD, STEVE INTERPRETAT ION SPECIFIC LEVEL OF ALLERGEN IGE CLASS kU/L SPECIFIC IGE ANTIBODY -------- --------- ----- 0 <0.10 ABSENT/UNDE TECTABLE 0/1 0.10-0.34 VERY LOW LEVEL 1 0.35-0.69 LOW LEVEL 2 0.70-3.49 MODERATE LEVEL 3 3.50-17.4 HIGH LEVEL 4 17.5-49.9 VERY HIGH LEVEL 5 50-100 VERY HIGH LEVEL 6 >100 VERY HIGH LEVEL The clinical relevance of allergen results of 0.10-0.34 kU/L are undetermine d and intended for specialist use. TEST PERFORMED AT: [facility] [address] [address] Director: Joshua Medina MD, PhD, STEVE TEST PERFORMED AT: TEST PERFORMED AT: [facility] [address] [address] [place] [phone] Director: Joshua Medina MD, PhD, STEVE Director: Joshua Medina MD, PhD, STEVE Ordering Provider: HILARIO CABRAL Report Released Date/Time: Feb 29, 2024 01:30 PM Reporting Lab: [address] [address] Performing Lab: [facility] ALLERGEN FOOD PANEL COW MILK IGE AB [UNITS/VOL UME] IN SERUM <0.10kU/ L 02/28 Specimen Type: SERUM Comment: TEST PERFORMED AT: [facility] [place] [id number] Director: Joshua Medina MD, PhD, STEVE TEST PERFORMED AT: [facility] [address] [address] Director: Joshua Medina MD, PhD, STEVE TEST PERFORMED AT: [facility] [address] [address] Director: Joshua Medina MD, PhD, STEVE TEST PERFORMED AT: [facility] [address] [address] Director: Joshua Medina MD, PhD, STEVE TEST PERFORMED AT: [facility] [address] [address] Director: Joshua Medina MD, PhD, STEVE TEST PERFORMED AT: [facility] [address] [address] Director: Joshua Medina MD, PhD, STEVE TEST PERFORMED AT: [facility] [address] [address] Director: Joshua Medina MD, PhD, STEVE TEST PERFORMED AT: [address] [address] Director: Joshua Medina MD, PhD, STEVE TEST PERFORMED AT: [address] [address] Director: Joshua Medina MD, PhD, STEVE TEST PERFORMED AT: [address] [address] Director: Joshua Medina MD, PhD, STEVE TEST PERFORMED AT: [address] [address] Director: Joshua Medina MD, PhD, STEVE TEST PERFORMED AT: [address] [address] Director: Joshua Medina MD, PhD, STEVE TEST PERFORMED AT: [address] [address] Director: Joshua Medina MD, PhD, STEVE TEST PERFORMED AT: [address] [address] Director: Joshua Medina MD, PhD, STEVE TEST PERFORMED AT: [address] [address] Director: Joshua Medina MD, PhD, STEVE TEST PERFORMED AT: [address] [address] Director: Joshua Medina MD, PhD, STEVE TEST PERFORMED AT: [address] [address] Director: Joshua Medina MD, PhD, STEVE TEST PERFORMED AT: [address] [address] Director: Joshua Medina MD, PhD, STEVE TEST PERFORMED AT: [address] [address] Director: Joshua Medina MD, PhD, STEVE TEST PERFORMED AT: [place] [address] Director: Joshua Medina MD, PhD, STEVE TEST PERFORMED AT: [place] [address] Director: Joshua Medina MD, PhD, STEVE TEST PERFORMED AT: [place] [address] Director: Joshua Medina MD, PhD, STEVE TEST PERFORMED AT: [place] [address] Director: Joshua Medina MD, PhD, STEVE TEST PERFORMED AT: [place] [address] Director: Joshua Medina MD, PhD, STEVE TEST PERFORMED AT: [place] [address] Director: Joshua Medina MD, PhD, STEVE INTERPRETAT ION SPECIFIC LEVEL OF ALLERGEN IGE CLASS kU/L SPECIFIC IGE ANTIBODY -------- --------- ----- 0 <0.10 ABSENT/UNDE TECTABLE 0/1 0.10-0.34 VERY LOW LEVEL 1 0.35-0.69 LOW LEVEL 2 0.70-3.49 MODERATE LEVEL 3 3.50-17.4 HIGH LEVEL 4 17.5-49.9 VERY HIGH LEVEL 5 50-100 VERY HIGH LEVEL 6 >100 VERY HIGH LEVEL The clinical relevance of allergen results of 0.10-0.34 kU/L are undetermine d and intended for specialist use. TEST PERFORMED AT: [facility] [place] [id number] Director: Joshua Medina MD, PhD, STEVE TEST PERFORMED AT: TEST PERFORMED AT: [facility] [address] [place] [address] [place] [address] Director: Jsohua Medina MD, PhD, STEVE Director: Joshua Medina MD, PhD, STEVE Ordering Provider: HILARIO CABRAL Report Released Date/Time: Feb 29, 2024 01:30 PM Reporting Lab: [address] [address] Performing Lab: [facility] ALLERGEN FOOD PANEL WHITE BAEZA IGE AB [UNITS/VOL UME] IN SERUM <0.10kU/ L 02/28 Specimen Type: SERUM Comment: TEST PERFORMED AT: [place] [address] Director: Joshua Medina MD, PhD, STEVE TEST PERFORMED AT: [facility] [place] [id number] Director: Joshua Medina MD, PhD, STEVE TEST PERFORMED AT: [facility] [address] Director: Joshua Medina MD, PhD, STEVE TEST PERFORMED AT: [facility] [address] Director: Joshua Medina MD, PhD, STEVE TEST PERFORMED AT: [place] [phone] Director: Joshua Medina MD, PhD, STEVE TEST PERFORMED AT: [facility] [address] Director: Joshua Medina MD, PhD, STEVE TEST PERFORMED AT: [facility] [address] Director: Joshua Medina MD, PhD, STEVE TEST PERFORMED AT: [facility] [address] [address] Director: Joshua Medina MD, PhD, STEVE TEST PERFORMED AT: [facility] [place] [address] Director: Joshua Medina MD, PhD, STEVE TEST PERFORMED AT: [address] [address] Director: Joshua Medina MD, PhD, STEVE TEST PERFORMED AT: [address] [address] Director: Joshua Medina MD, PhD, STEVE TEST PERFORMED AT: [address] [address] Director: Joshua Medina MD, PhD, STEVE TEST PERFORMED AT: [address] [address] Director: Joshua Medina MD, PhD, STEVE TEST PERFORMED AT: [address] [address] Director: Joshua Medina MD, PhD, STEVE TEST PERFORMED AT: [address] [address] Director: Joshua Medina MD, PhD, STEVE TEST PERFORMED AT: [address] [address] Director: Joshua Medina MD, PhD, STEVE TEST PERFORMED AT: [address] [address] Director: Joshua Medina MD, PhD, STEVE TEST PERFORMED AT: [address] [address] Director: Joshua Medina MD, PhD, STEVE TEST PERFORMED AT: [address] [address] Director: Joshua Medina MD, PhD, STEVE TEST PERFORMED AT: [address] [address] Director: Joshua Medina MD, PhD, STEVE TEST PERFORMED AT: [facility] [place] [address] Director: Joshua Medina MD, PhD, STEVE TEST PERFORMED AT: [facility] [place] [id number] Director: Joshua Medina MD, PhD, STEVE TEST PERFORMED AT: [facility] [employer] [place] [address] Director: Joshua Medina MD, PhD, STEVE TEST PERFORMED AT: [facility] [place] [id number] Director: Joshua Medina MD, PhD, STEVE TEST PERFORMED AT: [facility] [place] [id number] Director: Joshua Medina MD, PhD, STEVE INTERPRETAT ION SPECIFIC LEVEL OF ALLERGEN IGE CLASS kU/L SPECIFIC IGE ANTIBODY -------- --------- ----- 0 <0.10 ABSENT/UNDE TECTABLE 0/1 0.10-0.34 VERY LOW LEVEL 1 0.35-0.69 LOW LEVEL 2 0.70-3.49 MODERATE LEVEL 3 3.50-17.4 HIGH LEVEL 4 17.5-49.9 VERY HIGH LEVEL 5 50-100 VERY HIGH LEVEL 6 >100 VERY HIGH LEVEL The clinical relevance of allergen results of 0.10-0.34 kU/L are undetermine d and intended for specialist use. TEST PERFORMED AT: [facility] [place] [id number] Director: Joshua Medina MD, PhD, STEVE TEST PERFORMED AT: TEST PERFORMED AT: [facility] [address] [place] [address] Director: Joshua Medina MD, PhD, STEVE Director: Joshua Medina MD, PhD, STEVE Ordering Provider: HILARIO CABRAL Report Released Date/Time: Feb 29, 2024 01:30 PM Reporting Lab: [address] [address] Performing Lab: [facility] [place] [facility] ALLERGEN FOOD PANEL OAT IGE AB [UNITS/VOL UME] IN SERUM <0.10kU/ L 02/28 Specimen Type: SERUM Comment: TEST PERFORMED AT: [facility] [place] [id number] Director: Joshua Medina MD, PhD, STEVE TEST PERFORMED AT: [facility] [place] [id number] Director: Joshua Medina MD, PhD, STEVE TEST PERFORMED AT: [facility] [place] [address] Director: Joshua Medina MD, PhD, STEVE TEST PERFORMED AT: [facility] [place] [address] Director: Joshua Medina MD, PhD, STEVE TEST PERFORMED AT: [facility] [place] [id number] Director: Joshua Medina MD, PhD, STEVE TEST PERFORMED AT: [facility] [place] [address] Director: Joshua Medina MD, PhD, STEVE TEST PERFORMED AT: [facility] [place] [id number] Director: Joshua Medina MD, PhD, STEVE TEST PERFORMED AT: [facility] [address] Director: Joshua Medina MD, PhD, STEVE TEST PERFORMED AT: [facility] [address] Director: Joshua Medina MD, PhD, STEVE TEST PERFORMED AT: [facility] [address] Director: Joshua Medina MD, PhD, STEVE TEST PERFORMED AT: [address] [address] Director: Joshua Medina MD, PhD, STEVE TEST PERFORMED AT: [address] [address] Director: Joshua Medina MD, PhD, STEVE TEST PERFORMED AT: [address] [address] Director: Joshua Medina MD, PhD, STEVE TEST PERFORMED AT: [address] [address] Director: Joshua Medina MD, PhD, STEVE TEST PERFORMED AT: [address] [address] Director: Joshua Medina MD, PhD, STEVE TEST PERFORMED AT: [address] [address] Director: Joshua Medina MD, PhD, STEVE TEST PERFORMED AT: [address] [address] Director: Joshua Medina MD, PhD, STEVE TEST PERFORMED AT: [address] [address] Director: Joshua Medina MD, PhD, STEVE TEST PERFORMED AT: [address] [address] Director: Joshua Medina MD, PhD, STEVE TEST PERFORMED AT: [facility] [address] [address] Director: Joshua Medina MD, PhD, STEVE TEST PERFORMED AT: [facility] [address] [address] Director: Joshua Medina MD, PhD, STEVE TEST PERFORMED AT: [address] [address] Director: Joshua Medina MD, PhD, STEVE TEST PERFORMED AT: [facility] [place] [id number] Director: Joshua Medina MD, PhD, STEVE TEST PERFORMED AT: [facility] [place] [id number] Director: Joshua Medina MD, PhD, STEVE TEST PERFORMED AT: [facility] [place] [id number] Director: Joshua Medina MD, PhD, STEVE INTERPRETAT ION SPECIFIC LEVEL OF ALLERGEN IGE CLASS kU/L SPECIFIC IGE ANTIBODY -------- --------- ----- 0 <0.10 ABSENT/UNDE TECTABLE 0/1 0.10-0.34 VERY LOW LEVEL 1 0.35-0.69 LOW LEVEL 2 0.70-3.49 MODERATE LEVEL 3 3.50-17.4 HIGH LEVEL 4 17.5-49.9 VERY HIGH LEVEL 5 50-100 VERY HIGH LEVEL 6 >100 VERY HIGH LEVEL The clinical relevance of allergen results of 0.10-0.34 kU/L are undetermine d and intended for specialist use. TEST PERFORMED AT: [facility] [place] [id number] Director: Joshua Medina MD, PhD, STEVE TEST PERFORMED AT: TEST PERFORMED AT: [facility] [place] [address] [place] [address] Director: Joshua Medina MD, PhD, STEVE Director: Joshua Medina MD, PhD, STEVE Ordering Provider: HILARIO CABRAL Report Released Date/Time: Feb 29, 2024 01:30 PM Reporting Lab: [address] [address] Performing Lab: [facility] ALLERGEN FOOD PANEL ORANGE IGE AB [UNITS/VOL UME] IN SERUM <0.10kU/ L 02/28 Specimen Type: SERUM Comment: TEST PERFORMED AT: [facility] [address] [address] Director: Joshua Medina MD, PhD, STEVE TEST PERFORMED AT: [facility] [employer] [address] [address] Director: Joshua Medina MD, PhD, STEVE TEST PERFORMED AT: [address] [address] Director: Joshua Medina MD, PhD, STEVE TEST PERFORMED AT: [facility] [address] [address] Director: Joshua Medina MD, PhD, STEVE TEST PERFORMED AT: [facility] [employer] [address] [address] Director: Joshua Medina MD, PhD, STEVE TEST PERFORMED AT: [facility] [address] [address] Director: Joshua Medina MD, PhD, STEVE TEST PERFORMED AT: [facility] [address] [address] Director: Joshua Medina MD, PhD, STEVE TEST PERFORMED AT: [facility] [address] [address] Director: Joshua Medina MD, PhD, STEVE TEST PERFORMED AT: [facility] [address] [address] Director: Joshua Medina MD, PhD, STEVE TEST PERFORMED AT: [facility] [address] [address] Director: Joshua Medina MD, PhD, STEVE TEST PERFORMED AT: [facility] [address] [address] Director: Joshua Medina MD, PhD, STEVE TEST PERFORMED AT: [facility] [address] [address] Director: Joshua Medina MD, PhD, STEVE TEST PERFORMED AT: [facility] [address] [address] Director: Joshua Medina MD, PhD, STEVE TEST PERFORMED AT: [address] [address] Director: Joshua Medina MD, PhD, STEVE TEST PERFORMED AT: [address] [address] Director: Joshua Medina MD, PhD, STEVE TEST PERFORMED AT: [address] [address] Director: Joshua Medina MD, PhD, STEVE TEST PERFORMED AT: [address] [address] Director: Joshua Medina MD, PhD, STEVE TEST PERFORMED AT: [address] [address] Director: Joshua Medina MD, PhD, STEVE TEST PERFORMED AT: [address] [address] Director: Joshua Medina MD, PhD, STEVE TEST PERFORMED AT: [address] [address] Director: Joshua Medina MD, PhD, STEVE TEST PERFORMED AT: [address] [address] Director: Joshua Medina MD, PhD, STEVE TEST PERFORMED AT: [address] [address] Director: Joshua Medina MD, PhD, STEVE TEST PERFORMED AT: [address] [address] Director: Joshua Medina MD, PhD, STEVE TEST PERFORMED AT: [address] [address] Director: Joshua Medina MD, PhD, STEVE TEST PERFORMED AT: [facility] [address] Director: Joshua Medina MD, PhD, STEVE INTERPRETAT ION SPECIFIC LEVEL OF ALLERGEN IGE CLASS kU/L SPECIFIC IGE ANTIBODY -------- --------- ----- 0 <0.10 ABSENT/UNDE TECTABLE 0/1 0.10-0.34 VERY LOW LEVEL 1 0.35-0.69 LOW LEVEL 2 0.70-3.49 MODERATE LEVEL 3 3.50-17.4 HIGH LEVEL 4 17.5-49.9 VERY HIGH LEVEL 5 50-100 VERY HIGH LEVEL 6 >100 VERY HIGH LEVEL The clinical relevance of allergen results of 0.10-0.34 kU/L are undetermine d and intended for specialist use. TEST PERFORMED AT: [facility] [place] [phone] Director: Joshua Medina MD, PhD, STEVE TEST PERFORMED AT: TEST PERFORMED AT: [facility] [place] [phone] [place] [address] Director: Joshua Medina MD, PhD, STEVE Director: Joshua Medina MD, PhD, STEVE Ordering Provider: HILARIO CABRAL Report Released Date/Time: Feb 29, 2024 01:30 PM Reporting Lab: [address] [address] Performing Lab: [facility] ALLERGEN FOOD PANEL PEANUT IGE AB [UNITS/VOL UME] IN SERUM <0.10kU/ L 02/28 Specimen Type: SERUM Comment: TEST PERFORMED AT: [facility] [place] [id number] Director: Joshua Medina MD, PhD, STEVE TEST PERFORMED AT: [facility] [place] [phone] Director: Joshua Medina MD, PhD, STEVE TEST PERFORMED AT: [address] [address] Director: Joshua Medina MD, PhD, STEVE TEST PERFORMED AT: [address] [address] Director: Joshua Medina MD, PhD, STEVE TEST PERFORMED AT: [address] [address] Director: Joshua Medina MD, PhD, STEVE TEST PERFORMED AT: [address] [address] Director: Joshua Medina MD, PhD, STEVE TEST PERFORMED AT: [address] [address] Director: Joshua Medina MD, PhD, STEVE TEST PERFORMED AT: [address] [address] Director: Joshua Medina MD, PhD, STEVE TEST PERFORMED AT: [address] [address] Director: Joshua Medina MD, PhD, STEVE TEST PERFORMED AT: [address] [address] Director: Joshua Medina MD, PhD, STEVE TEST PERFORMED AT: [address] [address] Director: Joshua Medina MD, PhD, STEVE TEST PERFORMED AT: [address] [address] Director: Joshua Medina MD, PhD, STEVE TEST PERFORMED AT: [address] [address] Director: Joshua Medina MD, PhD, STEVE TEST PERFORMED AT: [address] [address] Director: oJshua Medina MD, PhD, STEVE TEST PERFORMED AT: [facility] [place] [address] Director: Joshua Medina MD, PhD, STEVE TEST PERFORMED AT: [place] [address] Director: Joshua Medina MD, PhD, STEVE TEST PERFORMED AT: [place] [address] Director: Joshua Medina MD, PhD, STEVE TEST PERFORMED AT: [place] [address] Director: Joshua Medina MD, PhD, STEVE TEST PERFORMED AT: [address] Director: Joshua Medina MD, PhD, STEVE TEST PERFORMED AT: [place] [address] Director: Joshua Medina MD, PhD, STEVE TEST PERFORMED AT: [place] [address] Director: Joshua Medina MD, PhD, STEVE TEST PERFORMED AT: [place] [address] Director: Joshua Medina MD, PhD, STEVE TEST PERFORMED AT: [place] [address] Director: Joshua Medina MD, PhD, STEVE TEST PERFORMED AT: [place] [address] Director: Joshua Medina MD, PhD, STEVE TEST PERFORMED AT: [place] [address] Director: Joshua Medina MD, PhD, STEVE INTERPRETAT ION SPECIFIC LEVEL OF ALLERGEN IGE CLASS kU/L SPECIFIC IGE ANTIBODY -------- --------- ----- 0 <0.10 ABSENT/UNDE TECTABLE 0/1 0.10-0.34 VERY LOW LEVEL 1 0.35-0.69 LOW LEVEL 2 0.70-3.49 MODERATE LEVEL 3 3.50-17.4 HIGH LEVEL 4 17.5-49.9 VERY HIGH LEVEL 5 50-100 VERY HIGH LEVEL 6 >100 VERY HIGH LEVEL The clinical relevance of allergen results of 0.10-0.34 kU/L are undetermine d and intended for specialist use. TEST PERFORMED AT: [facility] [place] [phone] Director: Joshua Medina MD, PhD, STEVE TEST PERFORMED AT: TEST PERFORMED AT: [facility] [employer] [address] [place], [place] Director: Joshua Medina MD, PhD, STEVE Director: Joshua Medina MD, PhD, STEVE Ordering Provider: HILARIO CABRAL Report Released Date/Time: Feb 29, 2024 01:30 PM Reporting Lab: [address] [address] Performing Lab: [facility] ALLERGEN FOOD PANEL POTATO IGE AB [UNITS/VOL UME] IN SERUM <0.10kU/ L 02/28 Specimen Type: SERUM Comment: TEST PERFORMED AT: [facility] [place] [phone] Director: Joshua Medina MD, PhD, STEVE TEST PERFORMED AT: [facility] [address] Director: Joshua Medina MD, PhD, STEVE TEST PERFORMED AT: [facility] [place] [phone] Director: Joshua Medina MD, PhD, STEVE TEST PERFORMED AT: [facility] [address] [address] Director: Joshua Medina MD, PhD, STEVE TEST PERFORMED AT: [facility] [address] [address] Director: Joshua Medina MD, PhD, STEVE TEST PERFORMED AT: [address] [address] Director: Joshua Medina MD, PhD, STEVE TEST PERFORMED AT: [address] [address] Director: Joshua Medina MD, PhD, STEVE TEST PERFORMED AT: [address] [address] Director: Joshua Medina MD, PhD, STEVE TEST PERFORMED AT: [address] [address] Director: Joshua Medina MD, PhD, STEVE TEST PERFORMED AT: [address] [address] Director: Joshua Medina MD, PhD, STEVE TEST PERFORMED AT: [address] [address] Director: Joshua Medina MD, PhD, STEVE TEST PERFORMED AT: [address] [address] Director: Joshua Medina MD, PhD, STEVE TEST PERFORMED AT: [address] [address] Director: Joshua Medina MD, PhD, STEVE TEST PERFORMED AT: [address] [address] Director: Joshua Medina MD, PhD, STEVE TEST PERFORMED AT: [address] [address] Director: Joshua Medina MD, PhD, STEVE TEST PERFORMED AT: [address] [address] Director: Joshua Medina MD, PhD, STEVE TEST PERFORMED AT: [place] [address] Director: Joshua Medina MD, PhD, STEVE TEST PERFORMED AT: [address] Director: Joshua Medina MD, PhD, STEVE TEST PERFORMED AT: [place] [address] Director: Joshua Medina MD, PhD, STEVE TEST PERFORMED AT: [facility] [place] [address] Director: Joshua Medina MD, PhD, STEVE TEST PERFORMED AT: [facility] [place] [address] Director: Joshua Medina MD, PhD, STEVE TEST PERFORMED AT: [facility] [place] [address] Director: Joshua Medina MD, PhD, STEVE TEST PERFORMED AT: [facility] [place] [address] Director: Joshua Medina MD, PhD, STEVE TEST PERFORMED AT: [facility] [address] Director: Joshua Medina MD, PhD, STEVE TEST PERFORMED AT: [facility] [address] Director: Josuha Medina MD, PhD, STEVE INTERPRETAT ION SPECIFIC LEVEL OF ALLERGEN IGE CLASS kU/L SPECIFIC IGE ANTIBODY -------- --------- ----- 0 <0.10 ABSENT/UNDE TECTABLE 0/1 0.10-0.34 VERY LOW LEVEL 1 0.35-0.69 LOW LEVEL 2 0.70-3.49 MODERATE LEVEL 3 3.50-17.4 HIGH LEVEL 4 17.5-49.9 VERY HIGH LEVEL 5 50-100 VERY HIGH LEVEL 6 >100 VERY HIGH LEVEL The clinical relevance of allergen results of 0.10-0.34 kU/L are undetermine d and intended for specialist use. TEST PERFORMED AT: [facility] [address] [address] Director: Joshua Medina MD, PhD, STEVE TEST PERFORMED AT: TEST PERFORMED AT: [facility] [address] [address] [place] [address] Director: Joshua Medina MD, PhD, STEVE Director: Joshua Medina MD, PhD, STEVE Ordering Provider: HILARIO CABRAL Report Released Date/Time: Feb 29, 2024 01:30 PM Reporting Lab: [address] [address] Performing Lab: [facility] ALLERGEN FOOD PANEL PORK IGE AB [UNITS/VOL UME] IN SERUM <0.10kU/ L 02/28 Specimen Type: SERUM Comment: TEST PERFORMED AT: [facility] [address] [address] Director: Joshua Medina MD, PhD, STEVE TEST PERFORMED AT: [facility] [address] [address] Director: Joshua Medina MD, PhD, STEVE TEST PERFORMED AT: [facility] [address] [address] Director: Joshua Medina MD, PhD, STEVE TEST PERFORMED AT: [facility] [address] [address] Director: Joshua Medina MD, PhD, STEVE TEST PERFORMED AT: [facility] [address] [address] Director: Joshua Medina MD, PhD, STEVE TEST PERFORMED AT: [facility] [address] [address] Director: Joshua Medina MD, PhD, STEVE TEST PERFORMED AT: [facility] [address] [address] Director: Joshua Medina MD, PhD, STEVE TEST PERFORMED AT: [address] [address] Director: Joshua Medina MD, PhD, STEVE TEST PERFORMED AT: [address] [address] Director: Joshua Medina MD, PhD, STEVE TEST PERFORMED AT: [address] [address] Director: Joshua Medina MD, PhD, STEVE TEST PERFORMED AT: [address] [address] Director: Joshua Medina MD, PhD, STEVE TEST PERFORMED AT: [address] [address] Director: Joshua Medina MD, PhD, STEVE TEST PERFORMED AT: [address] [address] Director: Joshua Medina MD, PhD, STEVE TEST PERFORMED AT: [address] [address] Director: Joshua Medina MD, PhD, STEVE TEST PERFORMED AT: [address] [address] Director: Joshua Medina MD, PhD, STEVE TEST PERFORMED AT: [facility] [address] [address] Director: Joshua Medina MD, PhD, STEEV TEST PERFORMED AT: [address] [address] Director: Joshua Medina MD, PhD, STEVE TEST PERFORMED AT: [facility] [address] [place] [address] Director: Joshua Medina MD, PhD, STEVE TEST PERFORMED AT: [facility] [address] Director: Joshua Medina MD, PhD, STEVE TEST PERFORMED AT: [address] Director: Joshua Medina MD, PhD, STEVE TEST PERFORMED AT: [place] [address] Director: Joshua Medina MD, PhD, STEVE TEST PERFORMED AT: [address] Director: Joshua Medina MD, PhD, STEVE TEST PERFORMED AT: [address] Director: Joshua Medina MD, PhD, STEVE TEST PERFORMED AT: [facility] [address] Director: Joshua Medina MD, PhD, STEVE TEST PERFORMED AT: [place] [address] Director: Joshua Medina MD, PhD, STEVE INTERPRETAT ION SPECIFIC LEVEL OF ALLERGEN IGE CLASS kU/L SPECIFIC IGE ANTIBODY -------- --------- ----- 0 <0.10 ABSENT/UNDE TECTABLE 0/1 0.10-0.34 VERY LOW LEVEL 1 0.35-0.69 LOW LEVEL 2 0.70-3.49 MODERATE LEVEL 3 3.50-17.4 HIGH LEVEL 4 17.5-49.9 VERY HIGH LEVEL 5 50-100 VERY HIGH LEVEL 6 >100 VERY HIGH LEVEL The clinical relevance of allergen results of 0.10-0.34 kU/L are undetermine d and intended for specialist use. TEST PERFORMED AT: [place] [phone] Director: Joshua Medina MD, PhD, STVEE TEST PERFORMED AT: TEST PERFORMED AT: [facility] [address] [place], [place] Director: Joshua Medina MD, PhD, STEVE Director: Joshua Medina MD, PhD, STEVE Ordering Provider: HILARIO CABRAL Report Released Date/Time: Feb 29, 2024 01:30 PM Reporting Lab: [address] [address] Performing Lab: [facility] ALLERGEN FOOD PANEL RICE IGE AB [UNITS/VOL UME] IN SERUM <0.10kU/ L 02/28 Specimen Type: SERUM Comment: TEST PERFORMED AT: [facility] [place] [phone] Director: Joshua Medina MD, PhD, STEVE TEST PERFORMED AT: [facility] [place] [phone] Director: Joshua Medina MD, PhD, STEVE TEST PERFORMED AT: [facility] [place] [phone] Director: Joshua Medina MD, PhD, STEVE TEST PERFORMED AT: [facility] [address] [address] Director: Joshua Medina MD, PhD, STEVE TEST PERFORMED AT: [facility] [address] [address] Director: Joshua Medina MD, PhD, STEVE TEST PERFORMED AT: [facility] [address] Director: Joshua Medina MD, PhD, STEVE TEST PERFORMED AT: [facility] [address] [address] Director: Joshua Medina MD, PhD, STEVE TEST PERFORMED AT: [facility] [address] [address] Director: Joshua Medina MD, PhD, SETVE TEST PERFORMED AT: [address] [address] Director: Joshua Medina MD, PhD, STEVE TEST PERFORMED AT: [address] [address] Director: Joshua Medina MD, PhD, STEVE TEST PERFORMED AT: [address] [address] Director: Joshua Medina MD, PhD, STEVE TEST PERFORMED AT: [address] [address] Director: Joshua Medina MD, PhD, STEVE TEST PERFORMED AT: [address] [address] Director: Joshua Medina MD, PhD, STEVE TEST PERFORMED AT: [address] [address] Director: Joshua Medina MD, PhD, STEVE TEST PERFORMED AT: [address] [address] Director: Joshua Medina MD, PhD, STEVE TEST PERFORMED AT: [address] [address] Director: Joshua Medina MD, PhD, STEVE TEST PERFORMED AT: [address] [address] Director: Joshua Medina MD, PhD, STEVE TEST PERFORMED AT: [address] [address] Director: Joshua Medina MD, PhD, STEVE TEST PERFORMED AT: [address] [address] Director: Joshua Medina MD, PhD, STEVE TEST PERFORMED AT: [facility] [address] [address] Director: Joshua Medina MD, PhD, STEVE TEST PERFORMED AT: [facility] [address] [address] Director: Joshua Medina MD, PhD, STEVE TEST PERFORMED AT: [facility] [address] [address] Director: Joshua Medina MD, PhD, STEVE TEST PERFORMED AT: [facility] [address] [address] Director: Joshua Medina MD, PhD, STEVE TEST PERFORMED AT: [place] [phone] Director: Joshua Medina MD, PhD, STEVE TEST PERFORMED AT: [place] [address] Director: Joshua Medina MD, PhD, STEVE INTERPRETAT ION SPECIFIC LEVEL OF ALLERGEN IGE CLASS kU/L SPECIFIC IGE ANTIBODY -------- --------- ----- 0 <0.10 ABSENT/UNDE TECTABLE 0/1 0.10-0.34 VERY LOW LEVEL 1 0.35-0.69 LOW LEVEL 2 0.70-3.49 MODERATE LEVEL 3 3.50-17.4 HIGH LEVEL 4 17.5-49.9 VERY HIGH LEVEL 5 50-100 VERY HIGH LEVEL 6 >100 VERY HIGH LEVEL The clinical relevance of allergen results of 0.10-0.34 kU/L are undetermine d and intended for specialist use. TEST PERFORMED AT: [facility] [address] [address] Director: Joshua Medina MD, PhD, STEVE TEST PERFORMED AT: TEST PERFORMED AT: [facility] [address] [address] [place] [address] Director: Joshua Medina MD, PhD, STEVE Director: Joshua Medina MD, PhD, STEVE Ordering Provider: HILARIO CABRAL Report Released Date/Time: Feb 29, 2024 01:30 PM Reporting Lab: [address] [address] Performing Lab: [facility] [place] [facility] ALLERGEN FOOD PANEL RYE IGE AB [UNITS/VOL UME] IN SERUM <0.10kU/ L 02/28 Specimen Type: SERUM Comment: TEST PERFORMED AT: [facility] [place] [id number] Director: Joshua Medina MD, PhD, STEVE TEST PERFORMED AT: [facility] [place] [phone] Director: Joshua Medina MD, PhD, STEVE TEST PERFORMED AT: [facility] [place] [address] Director: Joshua Medina MD, PhD, STEVE TEST PERFORMED AT: [facility] [address] Director: Joshua Medina MD, PhD, STEVE TEST PERFORMED AT: [facility] [address] Director: Joshua Medina MD, PhD, STEVE TEST PERFORMED AT: [facility] [address] Director: Joshua Medina MD, PhD, STEVE TEST PERFORMED AT: [facility] [address] Director: Joshua Medina MD, PhD, STEVE TEST PERFORMED AT: [place] [phone] Director: Joshua Medina MD, PhD, STEVE TEST PERFORMED AT: [facility] [address] [address] Director: Joshua Medina MD, PhD, STEVE TEST PERFORMED AT: [facility] [address] [address] Director: Joshua Medina MD, PhD, STEVE TEST PERFORMED AT: [address] [address] Director: Joshua Medina MD, PhD, STEVE TEST PERFORMED AT: [address] [address] Director: Joshua Medina MD, PhD, STEVE TEST PERFORMED AT: [facility] [address] [address] Director: Joshua Medina MD, PhD, STEVE TEST PERFORMED AT: [address] [address] Director: Joshua Medina MD, PhD, STEVE TEST PERFORMED AT: [address] [address] Director: Joshua Medina MD, PhD, STEVE TEST PERFORMED AT: [address] [address] Director: Joshua Medina MD, PhD, STEVE TEST PERFORMED AT: [facility] [address] [address] Director: Joshua Medina MD, PhD, STEVE TEST PERFORMED AT: [facility] [address] [address] Director: Joshua Medina MD, PhD, STEVE TEST PERFORMED AT: [facility] [address] [address] Director: Joshua Medina MD, PhD, STEVE TEST PERFORMED AT: [facility] [address] [address] Director: Joshua Medina MD, PhD, STEVE TEST PERFORMED AT: [facility] [address] [address] Director: Joshua Medina MD, PhD, STEVE TEST PERFORMED AT: [facility] [address] [address] Director: Joshua Medina MD, PhD, STEVE TEST PERFORMED AT: [facility] [place] [phone] Director: Joshua Medina MD, PhD, STEVE TEST PERFORMED AT: [facility] [address] [address] Director: Joshua Medina MD, PhD, STEVE TEST PERFORMED AT: [facility] [address] [address] Director: Joshua Medina MD, PhD, STEVE INTERPRETAT ION SPECIFIC LEVEL OF ALLERGEN IGE CLASS kU/L SPECIFIC IGE ANTIBODY -------- --------- ----- 0 <0.10 ABSENT/UNDE TECTABLE 0/1 0.10-0.34 VERY LOW LEVEL 1 0.35-0.69 LOW LEVEL 2 0.70-3.49 MODERATE LEVEL 3 3.50-17.4 HIGH LEVEL 4 17.5-49.9 VERY HIGH LEVEL 5 50-100 VERY HIGH LEVEL 6 >100 VERY HIGH LEVEL The clinical relevance of allergen results of 0.10-0.34 kU/L are undetermine d and intended for specialist use. TEST PERFORMED AT: [facility] [place] [id number] Director: Joshua Mednia MD, PhD, STEVE TEST PERFORMED AT: TEST PERFORMED AT: [facility] [address] [address] [place] [address] Director: Joshua Medina MD, PhD, STEVE Director: Joshua Medina MD, PhD, STEVE Ordering Provider: HILARIO CABRAL Report Released Date/Time: Feb 29, 2024 01:30 PM Reporting Lab: [address] [address] Performing Lab: [facility] ALLERGEN FOOD PANEL SHRIMP IGE AB [UNITS/VOL UME] IN SERUM <0.10kU/ L 02/28 Specimen Type: SERUM Comment: TEST PERFORMED AT: [place] [id number] Director: Joshua Medina MD, PhD, STEVE TEST PERFORMED AT: [facility] [address] [address] Director: Joshua Medina MD, PhD, STEVE TEST PERFORMED AT: [facility] [address] [address] Director: Joshua Medina MD, PhD, STEVE TEST PERFORMED AT: [facility] [address] [address] Director: Joshua Medina MD, PhD, STEVE TEST PERFORMED AT: [facility] [place] [phone] Director: Joshua Medina MD, PhD, STEVE TEST PERFORMED AT: [facility] [address] [address] Director: Joshua Medina MD, PhD, STEVE TEST PERFORMED AT: [facility] [address] [address] Director: Joshua Medina MD, PhD, STEVE TEST PERFORMED AT: [facility] [address] [address] Director: Joshua Medina MD, PhD, STEVE TEST PERFORMED AT: [facility] [address] [address] Director: Joshua Medina MD, PhD, STEVE TEST PERFORMED AT: [facility] [address] [address] Director: Joshua Medina MD, PhD, STEVE TEST PERFORMED AT: [facility] [address] [address] Director: Joshua Medina MD, PhD, STEVE TEST PERFORMED AT: [address] [address] Director: Joshua Medina MD, PhD, STEVE TEST PERFORMED AT: [address] [address] Director: Joshua Medina MD, PhD, STEVE TEST PERFORMED AT: [address] [address] Director: Joshua Medina MD, PhD, STEVE TEST PERFORMED AT: [address] [address] Director: Joshua Medina MD, PhD, STEVE TEST PERFORMED AT: [address] [address] Director: Joshua Medina MD, PhD, STEVE TEST PERFORMED AT: [address] [address] Director: Joshua Medina MD, PhD, STEVE TEST PERFORMED AT: [address] [address] Director: Joshua Medina MD, PhD, STEVE TEST PERFORMED AT: [address] [address] Director: Joshua Medina MD, PhD, STEVE TEST PERFORMED AT: [address] [address] Director: Joshua Medina MD, PhD, STEVE TEST PERFORMED AT: [address] [address] Director: Joshua Medina MD, PhD, STEVE TEST PERFORMED AT: [address] [address] Director: Joshua Medina MD, PhD, STEVE TEST PERFORMED AT: [address] [address] Director: Joshua Medina MD, PhD, STEVE TEST PERFORMED AT: [facility] [address] [address] Director: Joshua Medina MD, PhD, STEVE TEST PERFORMED AT: [facility] [place] [phone] Director: Joshua Medina MD, PhD, STEVE INTERPRETAT ION SPECIFIC LEVEL OF ALLERGEN IGE CLASS kU/L SPECIFIC IGE ANTIBODY -------- --------- ----- 0 <0.10 ABSENT/UNDE TECTABLE 0/1 0.10-0.34 VERY LOW LEVEL 1 0.35-0.69 LOW LEVEL 2 0.70-3.49 MODERATE LEVEL 3 3.50-17.4 HIGH LEVEL 4 17.5-49.9 VERY HIGH LEVEL 5 50-100 VERY HIGH LEVEL 6 >100 VERY HIGH LEVEL The clinical relevance of allergen results of 0.10-0.34 kU/L are undetermine d and intended for specialist use. TEST PERFORMED AT: [facility] [place] [id number] Director: Joshua Medina MD, PhD, STEVE TEST PERFORMED AT: TEST PERFORMED AT: [facility] [place] [phone] [place] [address] Director: Joshua Medina MD, PhD, STEVE Director: Joshua Medina MD, PhD, STEVE Ordering Provider: HILARIO CABRAL Report Released Date/Time: Feb 29, 2024 01:30 PM Reporting Lab: [address] [address] Performing Lab: [facility] ALLERGEN FOOD PANEL SOYBEAN IGE AB [UNITS/VOL UME] IN SERUM <0.10kU/ L 02/28 Specimen Type: SERUM Comment: TEST PERFORMED AT: [facility] [place] [id number] Director: Joshua Medina MD, PhD, STEVE TEST PERFORMED AT: [facility] [address] [address] Director: Joshua Medina MD, PhD, STEVE TEST PERFORMED AT: [address] [address] Director: Joshua Medina MD, PhD, STEVE TEST PERFORMED AT: [address] [address] Director: Joshua Medina MD, PhD, STEVE TEST PERFORMED AT: [address] [address] Director: Joshua Medina MD, PhD, STEVE TEST PERFORMED AT: [address] [address] Director: Joshua Medina MD, PhD, STEVE TEST PERFORMED AT: [address] [address] Director: Joshua Medina MD, PhD, STEVE TEST PERFORMED AT: [address] [address] Director: Johsua Medina MD, PhD, STEVE TEST PERFORMED AT: [address] [address] Director: Joshua Medina MD, PhD, STEVE TEST PERFORMED AT: [address] [address] Director: Joshua Medina MD, PhD, STEVE TEST PERFORMED AT: [address] [address] Director: Joshua Medina MD, PhD, STEVE TEST PERFORMED AT: [address] [address] Director: Joshua Medina MD, PhD, STEVE TEST PERFORMED AT: [address] [address] Director: Joshua Medina MD, PhD, STEVE TEST PERFORMED AT: [facility] [address] [address] Director: Joshua Medina MD, PhD, STEVE TEST PERFORMED AT: [address] [address] Director: Joshua Medina MD, PhD, STEVE TEST PERFORMED AT: [address] [address] Director: Joshua Medina MD, PhD, STEVE TEST PERFORMED AT: [address] [address] Director: Joshua Medina MD, PhD, STEVE TEST PERFORMED AT: [address] [address] Director: Joshua Medina MD, PhD, STEVE TEST PERFORMED AT: [address] [address] Director: Joshua Medina MD, PhD, STEVE TEST PERFORMED AT: [address] [address] Director: Joshua Medina MD, PhD, STEVE TEST PERFORMED AT: [address] [address] Director: Joshua Medina MD, PhD, STEVE TEST PERFORMED AT: [address] [address] Director: Joshua Medina MD, PhD, STEVE TEST PERFORMED AT: [address] [address] Director: Joshua Medina MD, PhD, STEVE TEST PERFORMED AT: [address] [address] Director: Joshua Medina MD, PhD, STEVE TEST PERFORMED AT: [address] Director: Joshua Medina MD, PhD, STEVE INTERPRETAT ION SPECIFIC LEVEL OF ALLERGEN IGE CLASS kU/L SPECIFIC IGE ANTIBODY -------- --------- ----- 0 <0.10 ABSENT/UNDE TECTABLE 0/1 0.10-0.34 VERY LOW LEVEL 1 0.35-0.69 LOW LEVEL 2 0.70-3.49 MODERATE LEVEL 3 3.50-17.4 HIGH LEVEL 4 17.5-49.9 VERY HIGH LEVEL 5 50-100 VERY HIGH LEVEL 6 >100 VERY HIGH LEVEL The clinical relevance of allergen results of 0.10-0.34 kU/L are undetermine d and intended for specialist use. TEST PERFORMED AT: [facility] [place] [id number] Director: Joshua Medina MD, PhD, STEVE TEST PERFORMED AT: TEST PERFORMED AT: [facility] [employer] [address] [place], [place] Director: Joshua Medina MD, PhD, STEVE Director: Joshua Medina MD, PhD, STEVE Ordering Provider: HILARIO CABRAL Report Released Date/Time: Feb 29, 2024 01:30 PM Reporting Lab: [address] [address] Performing Lab: [facility] ALLERGEN FOOD PANEL TOMATO IGE AB [UNITS/VOL UME] IN SERUM <0.10kU/ L 02/28 Specimen Type: SERUM Comment: TEST PERFORMED AT: [facility] [address] Director: Joshua Medina MD, PhD, STEVE TEST PERFORMED AT: [facility] [address] Director: Joshua Medina MD, PhD, STEVE TEST PERFORMED AT: [facility] [place] [id number] Director: Joshua Medina MD, PhD, STEVE TEST PERFORMED AT: [facility] [address] [address] Director: Joshua Medina MD, PhD, STEVE TEST PERFORMED AT: [address] [address] Director: Joshua Medina MD, PhD, STEVE TEST PERFORMED AT: [address] [address] Director: Joshua Medina MD, PhD, STEVE TEST PERFORMED AT: [address] [address] Director: Joshua Medina MD, PhD, STEVE TEST PERFORMED AT: [address] [address] Director: Joshua Medina MD, PhD, STEVE TEST PERFORMED AT: [address] [address] Director: Joshua Medina MD, PhD, STEVE TEST PERFORMED AT: [address] [address] Director: Joshua Medina MD, PhD, STEVE TEST PERFORMED AT: [address] [address] Director: Joshua Medina MD, PhD, STEVE TEST PERFORMED AT: [address] [address] Director: Joshua Medina MD, PhD, STEVE TEST PERFORMED AT: [facility] [address] [address] Director: Joshua Medina MD, PhD, STEVE TEST PERFORMED AT: [address] [address] Director: Joshua Medina MD, PhD, STEVE TEST PERFORMED AT: [address] [address] Director: Joshua Medina MD, PhD, STEVE TEST PERFORMED AT: [place] [address] Director: Joshua Medina MD, PhD, STEVE TEST PERFORMED AT: [place] [address] Director: Joshua Medina MD, PhD, STEVE TEST PERFORMED AT: [place] [address] Director: Joshua Medina MD, PhD, STEVE TEST PERFORMED AT: [address] Director: Joshua Medina MD, PhD, STEVE TEST PERFORMED AT: [place] [address] Director: Joshua Medina MD, PhD, STEVE TEST PERFORMED AT: [facility] [address] Director: Joshua Medina MD, PhD, STEVE TEST PERFORMED AT: [facility] [address] Director: Joshua Medina MD, PhD, STEVE TEST PERFORMED AT: [place] [address] Director: Joshua Medina MD, PhD, STEVE TEST PERFORMED AT: [place] [address] Director: Joshua Medina MD, PhD, STEVE TEST PERFORMED AT: [place] [address] Director: Joshua Medina MD, PhD, STEVE INTERPRETAT ION SPECIFIC LEVEL OF ALLERGEN IGE CLASS kU/L SPECIFIC IGE ANTIBODY -------- --------- ----- 0 <0.10 ABSENT/UNDE TECTABLE 0/1 0.10-0.34 VERY LOW LEVEL 1 0.35-0.69 LOW LEVEL 2 0.70-3.49 MODERATE LEVEL 3 3.50-17.4 HIGH LEVEL 4 17.5-49.9 VERY HIGH LEVEL 5 50-100 VERY HIGH LEVEL 6 >100 VERY HIGH LEVEL The clinical relevance of allergen results of 0.10-0.34 kU/L are undetermine d and intended for specialist use. TEST PERFORMED AT: [facility] [address] [address] Director: Joshua Medina MD, PhD, STEVE TEST PERFORMED AT: TEST PERFORMED AT: [facility] [employer] [address] [address] [place], [place] Director: Joshua Medina MD, PhD, STEVE Director: Joshua Medina MD, PhD, STEVE Ordering Provider: HILARIO CABRAL Report Released Date/Time: Feb 29, 2024 01:30 PM Reporting Lab: [address] [address] Performing Lab: [facility] ALLERGEN FOOD PANEL TUNA IGE AB [UNITS/VOL UME] IN SERUM <0.10kU/ L 02/28 Specimen Type: SERUM Comment: TEST PERFORMED AT: [facility] [address] [address] Director: Joshua Medina MD, PhD, STEVE TEST PERFORMED AT: [facility] [address] [address] Director: Joshua Medina MD, PhD, STEVE TEST PERFORMED AT: [facility] [address] [address] Director: Joshua Medina MD, PhD, STEVE TEST PERFORMED AT: [facility] [address] [address] Director: Joshua Medina MD, PhD, STEVE TEST PERFORMED AT: [facility] [address] [place] [address] Director: Joshua Medina MD, PhD, STEVE TEST PERFORMED AT: [address] [address] Director: Joshua Medina MD, PhD, STEVE TEST PERFORMED AT: [address] [address] Director: Joshua Medina MD, PhD, STEVE TEST PERFORMED AT: [address] [address] Director: Joshua Medina MD, PhD, STEVE TEST PERFORMED AT: [address] [address] Director: Joshua Medina MD, PhD, STEVE TEST PERFORMED AT: [address] [address] Director: Joshua Medina MD, PhD, STEVE TEST PERFORMED AT: [address] [address] Director: Joshua Medina MD, PhD, STEVE TEST PERFORMED AT: [address] [address] Director: Joshua Medina MD, PhD, STEVE TEST PERFORMED AT: [address] [address] Director: Joshua Medina MD, PhD, STEVE TEST PERFORMED AT: [address] [address] Director: Joshua Medina MD, PhD, STEVE TEST PERFORMED AT: [address] [address] Director: Joshua Medina MD, PhD, STEVE TEST PERFORMED AT: [address] [address] Director: Joshua Medina MD, PhD, STEVE TEST PERFORMED AT: [facility] [address] Director: Joshua Medina MD, PhD, STEVE TEST PERFORMED AT: [facility] [address] Director: Joshua Medina MD, PhD, STEVE TEST PERFORMED AT: [address] Director: Joshua Medina MD, PhD, STEVE TEST PERFORMED AT: [facility] [address] Director: Joshua Medina MD, PhD, STEVE TEST PERFORMED AT: [facility] [employer] [address] Director: Joshua Medina MD, PhD, STEVE TEST PERFORMED AT: [address] Director: Joshua Medina MD, PhD, STEVE TEST PERFORMED AT: [facility] [address] Director: Joshua Medina MD, PhD, STEVE TEST PERFORMED AT: [facility] [address] Director: Joshua Medina MD, PhD, STEVE TEST PERFORMED AT: [facility] [address] Director: Joshua Medina MD, PhD, STEVE INTERPRETAT ION SPECIFIC LEVEL OF ALLERGEN IGE CLASS kU/L SPECIFIC IGE ANTIBODY -------- --------- ----- 0 <0.10 ABSENT/UNDE TECTABLE 0/1 0.10-0.34 VERY LOW LEVEL 1 0.35-0.69 LOW LEVEL 2 0.70-3.49 MODERATE LEVEL 3 3.50-17.4 HIGH LEVEL 4 17.5-49.9 VERY HIGH LEVEL 5 50-100 VERY HIGH LEVEL 6 >100 VERY HIGH LEVEL The clinical relevance of allergen results of 0.10-0.34 kU/L are undetermine d and intended for specialist use. TEST PERFORMED AT: [facility] [place] [id number] Director: Joshua Medina MD, PhD, STEVE TEST PERFORMED AT: TEST PERFORMED AT: [facility] [place] [id number] [place] [address] Director: Joshua Medina MD, PhD, STEVE Director: Joshua Medina MD, PhD, STEVE Ordering Provider: HILARIO CABRAL Report Released Date/Time: Feb 29, 2024 01:30 PM Reporting Lab: [address] [address] Performing Lab: [facility] ALLERGEN FOOD PANEL WHEAT IGE AB [UNITS/VOL UME] IN SERUM <0.10kU/ L 02/28 Specimen Type: SERUM Comment: TEST PERFORMED AT: [facility] [place] [id number] Director: Joshua Medina MD, PhD, STEVE TEST PERFORMED AT: [facility] [place] [id number] Director: Joshua Medina MD, PhD, STEVE TEST PERFORMED AT: [facility] [place] [id number] Director: Joshua Medina MD, PhD, STEVE TEST PERFORMED AT: [facility] [place] [id number] Director: Joshua Medina MD, PhD, STEVE TEST PERFORMED AT: [facility] [place] [id number] Director: Joshua Medina MD, PhD, STEVE TEST PERFORMED AT: [facility] [place] [id number] Director: Joshua Medina MD, PhD, STEVE TEST PERFORMED AT: [address] [address] Director: Joshua Medina MD, PhD, STEVE TEST PERFORMED AT: [address] [address] Director: Joshua Medina MD, PhD, STEVE TEST PERFORMED AT: [address] [address] Director: Joshua Medina MD, PhD, STEVE TEST PERFORMED AT: [address] [address] Director: Joshua Medina MD, PhD, STEVE TEST PERFORMED AT: [address] [address] Director: Joshua Medina MD, PhD, STEVE TEST PERFORMED AT: [address] [address] Director: Joshua Medina MD, PhD, STEVE TEST PERFORMED AT: [address] [address] Director: Joshua Medina MD, PhD, STEVE TEST PERFORMED AT: [address] [address] Director: Joshua Medina MD, PhD, STEVE TEST PERFORMED AT: [address] [address] Director: Joshua Medina MD, PhD, STEVE TEST PERFORMED AT: [facility] [address] [address] Director: Joshua Medina MD, PhD, STEVE TEST PERFORMED AT: [facility] [address] [address] Director: Joshua Medina MD, PhD, STEVE TEST PERFORMED AT: [facility] [address] [address] Director: Joshua Medina MD, PhD, STEVE TEST PERFORMED AT: [facility] [place] [id number] Director: Joshua Medina MD, PhD, STEVE TEST PERFORMED AT: [place] [address] Director: Joshua Medina MD, PhD, STEVE TEST PERFORMED AT: [place] [address] Director: Joshua Medina MD, PhD, STEVE TEST PERFORMED AT: [facility] [address] Director: Joshua Medina MD, PhD, STEVE TEST PERFORMED AT: [facility] [address] Director: Joshua Medina MD, PhD, STEVE TEST PERFORMED AT: [facility] [address] Director: Joshua Medina MD, PhD, SETVE TEST PERFORMED AT: [facility] [address] Director: Joshua Medina MD, PhD, STEVE INTERPRETAT ION SPECIFIC LEVEL OF ALLERGEN IGE CLASS kU/L SPECIFIC IGE ANTIBODY -------- --------- ----- 0 <0.10 ABSENT/UNDE TECTABLE 0/1 0.10-0.34 VERY LOW LEVEL 1 0.35-0.69 LOW LEVEL 2 0.70-3.49 MODERATE LEVEL 3 3.50-17.4 HIGH LEVEL 4 17.5-49.9 VERY HIGH LEVEL 5 50-100 VERY HIGH LEVEL 6 >100 VERY HIGH LEVEL The clinical relevance of allergen results of 0.10-0.34 kU/L are undetermine d and intended for specialist use. TEST PERFORMED AT: [place] [address] Director: Joshua Medina MD, PhD, STEVE TEST PERFORMED AT: TEST PERFORMED AT: [facility] [place] [address] [facility] [address] [place] [address] [place] [address] Director: Joshua Medina MD, PhD, STEVE Director: Joshua Medina MD, PhD, STEVE Ordering Provider: HILARIO CABRAL Report Released Date/Time: Feb 29, 2024 01:30 PM Reporting Lab: [address] [address] Performing Lab: [facility] QUANTIFER ON (TUC/LB) MYCOBACTER IUM TUBERCULOS IS TUBERCULIN STIMULATED GAMMA INTERFERON [PRESENCE] IN BLOOD Negative 02/28 Specimen Type: BLOOD Comment: A Negative result does not preclude the possibility of M. tuberculosi s infection or tuberculosi s disease: false-negat kelsey results can be due to the stage of infection (e.g., specimen obtained prior to the development of cellular immune response or other immunologic al variables). Ordering Provider: HILARIO CABRAL Report Released Date/Time: Feb 29, 2024 01:30 PM Reporting Lab: [address] [address] Performing Lab: [address] [address] [facility] QUANTIFER ON (TUC/LB) GAMMA INTERFERON BACKGROUND [UNITS/VOL UME] IN BLOOD BY IMMUNOASSA Y 0.0619 [IU]/mL 02/28 Specimen Type: BLOOD Comment: A Negative result does not preclude the possibility of M. tuberculosi s infection or tuberculosi s disease: false-negat kelsey results can be due to the stage of infection (e.g., specimen obtained prior to the development of cellular immune response or other immunologic al variables). Ordering Provider: HILARIO CABRAL Report Released Date/Time: Feb 29, 2024 01:30 PM Reporting Lab: [address] [address] Performing Lab: [address] [address] [facility] QUANTIFER ON (TUC/LB) MYCOBACTER IUM TUBERCULOS IS STIMULATED GAMMA INTERFERON RELEASE BY CD4+ T-CELLS [UNITS/VOL UME] CORRECTED FOR BACKGROUND IN BLOOD 0.0000 [IU]/mL 02/28 Specimen Type: BLOOD Comment: A Negative result does not preclude the possibility of M. tuberculosi s infection or tuberculosi s disease: false-negat kelsey results can be due to the stage of infection (e.g., specimen obtained prior to the development of cellular immune response or other immunologic al variables). Ordering Provider: HILARIO CABRAL Report Released Date/Time: Feb 29, 2024 01:30 PM Reporting Lab: [address] [address] Performing Lab: [address] [address] [facility] QUANTIFER ON (TUC/LB) MYCOBACTER IUM TUBERCULOS IS STIMULATED GAMMA INTERFERON RELEASE BY CD4+ T-CELLS [UNITS/VOL UME] CORRECTED FOR BACKGROUND IN BLOOD 0.0080 [IU]/mL 02/28 Specimen Type: BLOOD Comment: A Negative result does not preclude the possibility of M. tuberculosi s infection or tuberculosi s disease: false-negat kelsey results can be due to the stage of infection (e.g., specimen obtained prior to the development of cellular immune response or other immunologic al variables). Ordering Provider: HILARIO CABRAL Report Released Date/Time: Feb 29, 2024 01:30 PM Reporting Lab: [address] [address] Performing Lab: [address] [address] [facility] QUANTIFER ON (TUC/LB) MYCOBACTER IUM TUBERCULOS IS TUBERCULIN STIMULATED GAMMA INTERFERON /MITOGEN STIMULATED GAMMA INTERFERON [UNITS/VOL UME] IN CONTROL BLOOD 9.9381 [IU]/mL 02/28 Specimen Type: BLOOD Comment: A Negative result does not preclude the possibility of M. tuberculosi s infection or tuberculosi s disease: false-negat kelsey results can be due to the stage of infection (e.g., specimen obtained prior to the development of cellular immune response or other immunologic al variables). Ordering Provider: HILARIO CABRAL Report Released Date/Time: Feb 29, 2024 01:30 PM Reporting Lab: [facility] [address] [facility] [address] Performing Lab: [facility] [address] [address] [facility] HEMOGLOBI N A1C HEMOGLOBIN A1C/HEMOGL OBIN.TOTAL IN BLOOD 5.8 4.4 - 6.4 02/28 Specimen Type: BLOOD Comment: [id number] Values obtained from A1C measurement s can vary. For typical A1C assays, a reported value of 7.0 could actually be between 6.72 and 7.28 if measured by a reference method. A reported value of 9.0 could actually be between 8.73 and 9.27. Ref: [email or web address] [email or web address]/CAPda [email or web address] Ordering Provider: HILARIO CABRAL Report Released Date/Time: Feb 29, 2024 01:30 PM Reporting Lab: [address] [address] Performing Lab: [address] [address] [facility] HEPATITIS C AB PANEL HEPATITIS C VIRUS AB [PRESENCE] IN SERUM OR PLASMA BY IMMUNOASSA Y NEGATIVE <Negative 02/28 Specimen Type: SERUM Comment: Since Total PSA value is considered truly negative, confirmator y Free PSA assay is not indicated. Ordering Provider: HILARIO CABRAL Report Released Date/Time: Feb 29, 2024 01:30 PM Reporting Lab: [address] [address] Performing Lab: [address] [address] [facility] LIPID STUDY (MUST BE FASTING) CHOLESTERO L [MASS/VOLU ME] IN SERUM OR PLASMA 186 mg/dL 145 - 200 02/28 Specimen Type: PLASMA Comment: eGFR CKD-EPI eGFR calculated using the 2020 CKD-EPI-cre atinine equation; units of measure are mL/min/1.73 m~2. eGFR can only be interpreted if creatinine is in steady state and is not valid in patients with acute kidney injury and in patients on dialysis. CKD is diagnosed based on abnormaliti es of kidney structure or function, present for >3 months, with implication s for health and disease.CKD is classified and stage based on cause, eGFR and albuminuria , quantified as urine albumin to creatinine ratio. eGFR staging of CKD: Stage G1 eGFR >90 mL/min/1.73 m~2. Stage G2 eGFR 60-89 mL/min/1.73 m~2. Stage G3a eGFR 45-59 mL/min/1.73 m~2. Stage G3b eGFR 30-44 mL/min/1.73 m~2. Stage G4 eGFR 15-29 mL/min/1.73 m~2. Stage G5 eGFR <15 mL/min/1.73 m~2. Ordering Provider: HILARIO CABRAL Report Released Date/Time: Feb 29, 2024 01:30 PM Reporting Lab: [address] [address] Performing Lab: [address] [address] [facility] LIPID STUDY (MUST BE FASTING) TRIGLYCERI DE [MASS/VOLU ME] IN SERUM OR PLASMA 68 mg/dL 47 - 150 02/28 Specimen Type: PLASMA Comment: eGFR CKD-EPI eGFR calculated using the 2020 CKD-EPI-cre atinine equation; units of measure are mL/min/1.73 m~2. eGFR can only be interpreted if creatinine is in steady state and is not valid in patients with acute kidney injury and in patients on dialysis. CKD is diagnosed based on abnormaliti es of kidney structure or function, present for >3 months, with implication s for health and disease.CKD is classified and stage based on cause, eGFR and albuminuria , quantified as urine albumin to creatinine ratio. eGFR staging of CKD: Stage G1 eGFR >90 mL/min/1.73 m~2. Stage G2 eGFR 60-89 mL/min/1.73 m~2. Stage G3a eGFR 45-59 mL/min/1.73 m~2. Stage G3b eGFR 30-44 mL/min/1.73 m~2. Stage G4 eGFR 15-29 mL/min/1.73 m~2. Stage G5 eGFR <15 mL/min/1.73 m~2. Ordering Provider: HLIARIO CABRAL Report Released Date/Time: Feb 29, 2024 01:30 PM Reporting Lab: [address] [address] Performing Lab: [address] [address] [facility] LIPID STUDY (MUST BE FASTING) CHOLESTERO L IN HDL [MASS/VOLU ME] IN SERUM OR PLASMA 49 mg/dL 40 - 60 02/28 Specimen Type: PLASMA Comment: eGFR CKD-EPI eGFR calculated using the 2020 CKD-EPI-cre atinine equation; units of measure are mL/min/1.73 m~2. eGFR can only be interpreted if creatinine is in steady state and is not valid in patients with acute kidney injury and in patients on dialysis. CKD is diagnosed based on abnormaliti es of kidney structure or function, present for >3 months, with implication s for health and disease.CKD is classified and stage based on cause, eGFR and albuminuria , quantified as urine albumin to creatinine ratio. eGFR staging of CKD: Stage G1 eGFR >90 mL/min/1.73 m~2. Stage G2 eGFR 60-89 mL/min/1.73 m~2. Stage G3a eGFR 45-59 mL/min/1.73 m~2. Stage G3b eGFR 30-44 mL/min/1.73 m~2. Stage G4 eGFR 15-29 mL/min/1.73 m~2. Stage G5 eGFR <15 mL/min/1.73 m~2. Ordering Provider: HILARIO CABRAL Report Released Date/Time: Feb 29, 2024 01:30 PM Reporting Lab: [address] [address] Performing Lab: [address] [address] [facility] LIPID STUDY (MUST BE FASTING) CHOLESTERO L IN LDL [MASS/VOLU ME] IN SERUM OR PLASMA BY CALCULATIO N 123 mg/dL 0 - 130 02/28 Specimen Type: PLASMA Comment: eGFR CKD-EPI eGFR calculated using the 2020 CKD-EPI-cre atinine equation; units of measure are mL/min/1.73 m~2. eGFR can only be interpreted if creatinine is in steady state and is not valid in patients with acute kidney injury and in patients on dialysis. CKD is diagnosed based on abnormaliti es of kidney structure or function, present for >3 months, with implication s for health and disease.CKD is classified and stage based on cause, eGFR and albuminuria , quantified as urine albumin to creatinine ratio. eGFR staging of CKD: Stage G1 eGFR >90 mL/min/1.73 m~2. Stage G2 eGFR 60-89 mL/min/1.73 m~2. Stage G3a eGFR 45-59 mL/min/1.73 m~2. Stage G3b eGFR 30-44 mL/min/1.73 m~2. Stage G4 eGFR 15-29 mL/min/1.73 m~2. Stage G5 eGFR <15 mL/min/1.73 m~2. Ordering Provider: HILARIO CABRAL Report Released Date/Time: Feb 29, 2024 01:30 PM Reporting Lab: [address] [address] Performing Lab: [address] [address] [facility] CBC & DIFF LEUKOCYTES [#/VOLUME] IN BLOOD BY AUTOMATED COUNT 7.0 10*3/uL 3.5 - 10.6 02/28 Specimen Type: BLOOD No comment entered. Ordering Provider: HILARIO CABRAL Report Released Date/Time: Feb 29, 2024 01:30 PM Reporting Lab: [address] [address] Performing Lab: [address] [address] [facility] CBC & DIFF ERYTHROCYT ES [#/VOLUME] IN BLOOD BY AUTOMATED COUNT 4.40 10*6/uL 4.40 - 5.90 02/28 Specimen Type: BLOOD No comment entered. Ordering Provider: HILARIO CABRAL Report Released Date/Time: Feb 29, 2024 01:30 PM Reporting Lab: [address] [address] Performing Lab: [address] [address] [facility] CBC & DIFF HEMOGLOBIN [MASS/VOLU ME] IN BLOOD 13.8 g/dL 13.0 - 18.0 02/28 Specimen Type: BLOOD No comment entered. Ordering Provider: HILARIO CABRAL Report Released Date/Time: Feb 29, 2024 01:30 PM Reporting Lab: [address] [place] [address] Performing Lab: [address] [place] [address] [facility] CBC & DIFF HEMATOCRIT [VOLUME FRACTION] OF BLOOD BY AUTOMATED COUNT 41.4 40.0 - 52.0 02/28 Specimen Type: BLOOD No comment entered. Ordering Provider: HILARIO CABRAL Report Released Date/Time: Feb 29, 2024 01:30 PM Reporting Lab: [address] [place] [address] Performing Lab: [address] [place] [address] [facility] CBC & DIFF MCV [ENTITIC VOLUME] BY AUTOMATED COUNT 94.1 fL 80.0 - 100.0 02/28 Specimen Type: BLOOD No comment entered. Ordering Provider: HILARIO CABRAL Report Released Date/Time: Feb 29, 2024 01:30 PM Reporting Lab: [address] [place] [address] Performing Lab: [address] [place] [address] [facility] CBC & DIFF MCH [ENTITIC MASS] BY AUTOMATED COUNT 31.4 pg 26.0 - 34.0 02/28 Specimen Type: BLOOD No comment entered. Ordering Provider: HILARIO CABRAL Report Released Date/Time: Feb 29, 2024 01:30 PM Reporting Lab: [address] [place] [address] Performing Lab: [address] [place] [address] [facility] CBC & DIFF MCHC [MASS/VOLU ME] BY AUTOMATED COUNT 33.3 g/dL 32.0 - 36.0 02/28 Specimen Type: BLOOD No comment entered. Ordering Provider: HILARIO CABRAL Report Released Date/Time: Feb 29, 2024 01:30 PM Reporting Lab: [address] [place] [address] Performing Lab: [address] [place] [address] [facility] [facility] CBC & DIFF PLATELETS [#/VOLUME] IN BLOOD BY AUTOMATED COUNT 184 10*3/uL 150 - 440 02/28 Specimen Type: BLOOD No comment entered. Ordering Provider: HILARIO CABRAL Report Released Date/Time: Feb 29, 2024 01:30 PM Reporting Lab: [address] [place] [address] Performing Lab: [address] [place] [address] [facility] CBC & DIFF PLATELET MEAN VOLUME [ENTITIC VOLUME] IN BLOOD BY AUTOMATED COUNT 9.5 fL 9.0 - 13.0 02/28 Specimen Type: BLOOD No comment entered. Ordering Provider: HILARIO CABRAL Report Released Date/Time: Feb 29, 2024 01:30 PM Reporting Lab: [address] [place] [address] Performing Lab: [address] [address] [facility] CBC & DIFF ERYTHROCYT E DISTRIBUTI ON WIDTH [RATIO] BY AUTOMATED COUNT 13.5 11.0 - 15.0 02/28 Specimen Type: BLOOD No comment entered. Ordering Provider: HILARIO CABRAL Report Released Date/Time: Feb 29, 2024 01:30 PM Reporting Lab: [address] [place] [address] Performing Lab: [address] [place] [address] [facility] CBC & DIFF NEUTROPHIL S [#/VOLUME] IN BLOOD BY AUTOMATED COUNT 3.70 10*3/uL 2.24 - 6.46 02/28 Specimen Type: BLOOD No comment entered. Ordering Provider: HILARIO CABRAL Report Released Date/Time: Feb 29, 2024 01:30 PM Reporting Lab: [address] [place] [address] Performing Lab: [address] [place] [address] [facility] CBC & DIFF LYMPHOCYTE S [#/VOLUME] IN BLOOD BY AUTOMATED COUNT 2.25 10*3/uL 0.73 - 3.44 02/28 Specimen Type: BLOOD No comment entered. Ordering Provider: HILARIO CABRAL Report Released Date/Time: Feb 29, 2024 01:30 PM Reporting Lab: [facility] [address] [facility] [place] [address] Performing Lab: [facility] [address] [facility] [place] [address] [facility] CBC & DIFF MONOCYTES [#/VOLUME] IN BLOOD BY AUTOMATED COUNT 0.66 10*3/uL 0.25 - 0.97 02/28 Specimen Type: BLOOD No comment entered. Ordering Provider: HILARIO CABRAL Report Released Date/Time: Feb 29, 2024 01:30 PM Reporting Lab: [facility] [address] [facility] [place] [address] Performing Lab: [facility] [address] [place] [address] [facility] CBC & DIFF EOSINOPHIL S [#/VOLUME] IN BLOOD BY AUTOMATED COUNT 0.30 10*3/uL 0.01 - 0.57 02/28 Specimen Type: BLOOD No comment entered. Ordering Provider: HILARIO CABRAL Report Released Date/Time: Feb 29, 2024 01:30 PM Reporting Lab: [facility] [address] [place] [address] Performing Lab: [facility] [address] [place] [address] [facility] CBC & DIFF BASOPHILS [#/VOLUME] IN BLOOD BY AUTOMATED COUNT 0.03 10*3/uL 0.01 - 0.10 02/28 Specimen Type: BLOOD No comment entered. Ordering Provider: HILARIO CABRAL Report Released Date/Time: Feb 29, 2024 01:30 PM Reporting Lab: [facility] [address] [place] [address] Performing Lab: [facility] [address] [place] [address] [facility] CBC & DIFF IMMATURE GRANULOCYT ES [#/VOLUME] IN BLOOD BY AUTOMATED COUNT 0.04 10*3/uL 0.00 - 0.07 02/28 Specimen Type: BLOOD No comment entered. Ordering Provider: HILARIO CABRAL Report Released Date/Time: Feb 29, 2024 01:30 PM Reporting Lab: [address] [place] [address] Performing Lab: [facility] [address] [place] [address] [facility] COMPREHEN SIVE METABOLIC PANEL UREA NITROGEN [MASS/VOLU ME] IN SERUM OR PLASMA 15 mg/dL 7 - 20 02/28 Specimen Type: PLASMA Comment: eGFR CKD-EPI eGFR calculated using the 2020 CKD-EPI-cre atinine equation; units of measure are mL/min/1.73 m~2. eGFR can only be interpreted if creatinine is in steady state and is not valid in patients with acute kidney injury and in patients on dialysis. CKD is diagnosed based on abnormaliti es of kidney structure or function, present for >3 months, with implication s for health and disease.CKD is classified and stage based on cause, eGFR and albuminuria , quantified as urine albumin to creatinine ratio. eGFR staging of CKD: Stage G1 eGFR >90 mL/min/1.73 m~2. Stage G2 eGFR 60-89 mL/min/1.73 m~2. Stage G3a eGFR 45-59 mL/min/1.73 m~2. Stage G3b eGFR 30-44 mL/min/1.73 m~2. Stage G4 eGFR 15-29 mL/min/1.73 m~2. Stage G5 eGFR <15 mL/min/1.73 m~2. Ordering Provider: HILARIO CABRAL Report Released Date/Time: Feb 29, 2024 01:30 PM Reporting Lab: [address] [address] Performing Lab: [address] [address] [facility] COMPREHEN SIVE METABOLIC PANEL GLUCOSE [MASS/VOLU ME] IN SERUM OR PLASMA 98 mg/dL 70 - 100 02/28 Specimen Type: PLASMA Comment: eGFR CKD-EPI eGFR calculated using the 2020 CKD-EPI-cre atinine equation; units of measure are mL/min/1.73 m~2. eGFR can only be interpreted if creatinine is in steady state and is not valid in patients with acute kidney injury and in patients on dialysis. CKD is diagnosed based on abnormaliti es of kidney structure or function, present for >3 months, with implication s for health and disease.CKD is classified and stage based on cause, eGFR and albuminuria , quantified as urine albumin to creatinine ratio. eGFR staging of CKD: Stage G1 eGFR >90 mL/min/1.73 m~2. Stage G2 eGFR 60-89 mL/min/1.73 m~2. Stage G3a eGFR 45-59 mL/min/1.73 m~2. Stage G3b eGFR 30-44 mL/min/1.73 m~2. Stage G4 eGFR 15-29 mL/min/1.73 m~2. Stage G5 eGFR <15 mL/min/1.73 m~2. Ordering Provider: HILARIO CABRAL Report Released Date/Time: Feb 29, 2024 01:30 PM Reporting Lab: [address] [address] Performing Lab: [address] [address] [facility] COMPREHEN SIVE METABOLIC PANEL SODIUM [MOLES/VOL UME] IN SERUM OR PLASMA 140 mmol/L 135 - 145 02/28 Specimen Type: PLASMA Comment: eGFR CKD-EPI eGFR calculated using the 2020 CKD-EPI-cre atinine equation; units of measure are mL/min/1.73 m~2. eGFR can only be interpreted if creatinine is in steady state and is not valid in patients with acute kidney injury and in patients on dialysis. CKD is diagnosed based on abnormaliti es of kidney structure or function, present for >3 months, with implication s for health and disease.CKD is classified and stage based on cause, eGFR and albuminuria , quantified as urine albumin to creatinine ratio. eGFR staging of CKD: Stage G1 eGFR >90 mL/min/1.73 m~2. Stage G2 eGFR 60-89 mL/min/1.73 m~2. Stage G3a eGFR 45-59 mL/min/1.73 m~2. Stage G3b eGFR 30-44 mL/min/1.73 m~2. Stage G4 eGFR 15-29 mL/min/1.73 m~2. Stage G5 eGFR <15 mL/min/1.73 m~2. Ordering Provider: HILARIO CABRAL Report Released Date/Time: Feb 29, 2024 01:30 PM Reporting Lab: [address] [address] Performing Lab: [address] [address] [facility] COMPREHEN SIVE METABOLIC PANEL POTASSIUM [MOLES/VOL UME] IN SERUM OR PLASMA 4.1 mmol/L 3.5 - 5.0 02/28 Specimen Type: PLASMA Comment: eGFR CKD-EPI eGFR calculated using the 2020 CKD-EPI-cre atinine equation; units of measure are mL/min/1.73 m~2. eGFR can only be interpreted if creatinine is in steady state and is not valid in patients with acute kidney injury and in patients on dialysis. CKD is diagnosed based on abnormaliti es of kidney structure or function, present for >3 months, with implication s for health and disease.CKD is classified and stage based on cause, eGFR and albuminuria , quantified as urine albumin to creatinine ratio. eGFR staging of CKD: Stage G1 eGFR >90 mL/min/1.73 m~2. Stage G2 eGFR 60-89 mL/min/1.73 m~2. Stage G3a eGFR 45-59 mL/min/1.73 m~2. Stage G3b eGFR 30-44 mL/min/1.73 m~2. Stage G4 eGFR 15-29 mL/min/1.73 m~2. Stage G5 eGFR <15 mL/min/1.73 m~2. Ordering Provider: HILARIO CABRAL Report Released Date/Time: Feb 29, 2024 01:30 PM Reporting Lab: [address] [address] Performing Lab: [address] [address] [facility] KAUSHIK LEEANN METABOLIC PANEL CHLORIDE [MOLES/VOL UME] IN SERUM OR PLASMA 108 mmol/L 98 - 110 02/28 Specimen Type: PLASMA Comment: eGFR CKD-EPI eGFR calculated using the 2020 CKD-EPI-cre atinine equation; units of measure are mL/min/1.73 m~2. eGFR can only be interpreted if creatinine is in steady state and is not valid in patients with acute kidney injury and in patients on dialysis. CKD is diagnosed based on abnormaliti es of kidney structure or function, present for >3 months, with implication s for health and disease.CKD is classified and stage based on cause, eGFR and albuminuria , quantified as urine albumin to creatinine ratio. eGFR staging of CKD: Stage G1 eGFR >90 mL/min/1.73 m~2. Stage G2 eGFR 60-89 mL/min/1.73 m~2. Stage G3a eGFR 45-59 mL/min/1.73 m~2. Stage G3b eGFR 30-44 mL/min/1.73 m~2. Stage G4 eGFR 15-29 mL/min/1.73 m~2. Stage G5 eGFR <15 mL/min/1.73 m~2. Ordering Provider: HILARIO CABRAL Report Released Date/Time: Feb 29, 2024 01:30 PM Reporting Lab: [address] [address] Performing Lab: [address] [address] [facility] COMPREHEN SIVE METABOLIC PANEL CARBON DIOXIDE, TOTAL [MOLES/VOL UME] IN SERUM OR PLASMA 24 mmol/L - 02/28 Specimen Type: PLASMA Comment: eGFR CKD-EPI eGFR calculated using the 2020 CKD-EPI-cre atinine equation; units of measure are mL/min/1.73 m~2. eGFR can only be interpreted if creatinine is in steady state and is not valid in patients with acute kidney injury and in patients on dialysis. CKD is diagnosed based on abnormaliti es of kidney structure or function, present for >3 months, with implication s for health and disease.CKD is classified and stage based on cause, eGFR and albuminuria , quantified as urine albumin to creatinine ratio. eGFR staging of CKD: Stage G1 eGFR >90 mL/min/1.73 m~2. Stage G2 eGFR 60-89 mL/min/1.73 m~2. Stage G3a eGFR 45-59 mL/min/1.73 m~2. Stage G3b eGFR 30-44 mL/min/1.73 m~2. Stage G4 eGFR 15-29 mL/min/1.73 m~2. Stage G5 eGFR <15 mL/min/1.73 m~2. Ordering Provider: HILARIO CABRAL Report Released Date/Time: Feb 29, 2024 01:30 PM Reporting Lab: [address] [address] Performing Lab: [address] [place] [address] [facility] COMPREHEN SIVE METABOLIC PANEL CALCIUM [MASS/VOLU ME] IN SERUM OR PLASMA 9.1 mg/dL 8.4 - 10.4 02/28 Specimen Type: PLASMA Comment: eGFR CKD-EPI eGFR calculated using the 2020 CKD-EPI-cre atinine equation; units of measure are mL/min/1.73 m~2. eGFR can only be interpreted if creatinine is in steady state and is not valid in patients with acute kidney injury and in patients on dialysis. CKD is diagnosed based on abnormaliti es of kidney structure or function, present for >3 months, with implication s for health and disease.CKD is classified and stage based on cause, eGFR and albuminuria , quantified as urine albumin to creatinine ratio. eGFR staging of CKD: Stage G1 eGFR >90 mL/min/1.73 m~2. Stage G2 eGFR 60-89 mL/min/1.73 m~2. Stage G3a eGFR 45-59 mL/min/1.73 m~2. Stage G3b eGFR 30-44 mL/min/1.73 m~2. Stage G4 eGFR 15-29 mL/min/1.73 m~2. Stage G5 eGFR <15 mL/min/1.73 m~2. Ordering Provider: HILARIO CABRAL Report Released Date/Time: Feb 29, 2024 01:30 PM Reporting Lab: [address] [address] Performing Lab: [address] [address] [facility] PROTEIN [MASS/VOLU ME] IN SERUM OR PLASMA 7.2 g/dL 6.4 - 8.5 02/28 Specimen Type: PLASMA Comment: eGFR CKD-EPI eGFR calculated using the 2020 CKD-EPI-cre atinine equation; units of measure are mL/min/1.73 m~2. eGFR can only be interpreted if creatinine is in steady state and is not valid in patients with acute kidney injury and in patients on dialysis. CKD is diagnosed based on abnormaliti es of kidney structure or function, present for >3 months, with implication s for health and disease.CKD is classified and stage based on cause, eGFR and albuminuria , quantified as urine albumin to creatinine ratio. eGFR staging of CKD: Stage G1 eGFR >90 mL/min/1.73 m~2. Stage G2 eGFR 60-89 mL/min/1.73 m~2. Stage G3a eGFR 45-59 mL/min/1.73 m~2. Stage G3b eGFR 30-44 mL/min/1.73 m~2. Stage G4 eGFR 15-29 mL/min/1.73 m~2. Stage G5 eGFR <15 mL/min/1.73 m~2. Ordering Provider: HILARIO CABRAL Report Released Date/Time: Feb 29, 2024 01:30 PM Reporting Lab: [address] [address] Performing Lab: [address] [address] [facility] COMPREHEN SIVE METABOLIC PANEL ALBUMIN [MASS/VOLU ME] IN SERUM OR PLASMA 4.0 g/dL 3.5 - 5.1 02/28 Specimen Type: PLASMA Comment: eGFR CKD-EPI eGFR calculated using the 2020 CKD-EPI-cre atinine equation; units of measure are mL/min/1.73 m~2. eGFR can only be interpreted if creatinine is in steady state and is not valid in patients with acute kidney injury and in patients on dialysis. CKD is diagnosed based on abnormaliti es of kidney structure or function, present for >3 months, with implication s for health and disease.CKD is classified and stage based on cause, eGFR and albuminuria , quantified as urine albumin to creatinine ratio. eGFR staging of CKD: Stage G1 eGFR >90 mL/min/1.73 m~2. Stage G2 eGFR 60-89 mL/min/1.73 m~2. Stage G3a eGFR 45-59 mL/min/1.73 m~2. Stage G3b eGFR 30-44 mL/min/1.73 m~2. Stage G4 eGFR 15-29 mL/min/1.73 m~2. Stage G5 eGFR <15 mL/min/1.73 m~2. Ordering Provider: HILARIO CABRAL Report Released Date/Time: Feb 29, 2024 01:30 PM Reporting Lab: [address] [address] Performing Lab: [address] [address] [facility] COMPREHEN SIVE METABOLIC PANEL BILIRUBIN. TOTAL [MASS/VOLU ME] IN SERUM OR PLASMA 1.4 mg/dL 0.2 - 1.0 02/28 H Specimen Type: PLASMA Comment: eGFR CKD-EPI eGFR calculated using the 2020 CKD-EPI-cre atinine equation; units of measure are mL/min/1.73 m~2. eGFR can only be interpreted if creatinine is in steady state and is not valid in patients with acute kidney injury and in patients on dialysis. CKD is diagnosed based on abnormaliti es of kidney structure or function, present for >3 months, with implication s for health and disease.CKD is classified and stage based on cause, eGFR and albuminuria , quantified as urine albumin to creatinine ratio. eGFR staging of CKD: Stage G1 eGFR >90 mL/min/1.73 m~2. Stage G2 eGFR 60-89 mL/min/1.73 m~2. Stage G3a eGFR 45-59 mL/min/1.73 m~2. Stage G3b eGFR 30-44 mL/min/1.73 m~2. Stage G4 eGFR 15-29 mL/min/1.73 m~2. Stage G5 eGFR <15 mL/min/1.73 m~2. Ordering Provider: HILARIO CABRAL Report Released Date/Time: Feb 29, 2024 01:30 PM Reporting Lab: [address] [address] Performing Lab: [address] [address] [facility] COMPREHEN SIVE METABOLIC PANEL ALKALINE PHOSPHATAS E [ENZYMATIC ACTIVITY/V OLUME] IN SERUM OR PLASMA 84 U/L 53 - 128 02/28 Specimen Type: PLASMA Comment: eGFR CKD-EPI eGFR calculated using the 2020 CKD-EPI-cre atinine equation; units of measure are mL/min/1.73 m~2. eGFR can only be interpreted if creatinine is in steady state and is not valid in patients with acute kidney injury and in patients on dialysis. CKD is diagnosed based on abnormaliti es of kidney structure or function, present for >3 months, with implication s for health and disease.CKD is classified and stage based on cause, eGFR and albuminuria , quantified as urine albumin to creatinine ratio. eGFR staging of CKD: Stage G1 eGFR >90 mL/min/1.73 m~2. Stage G2 eGFR 60-89 mL/min/1.73 m~2. Stage G3a eGFR 45-59 mL/min/1.73 m~2. Stage G3b eGFR 30-44 mL/min/1.73 m~2. Stage G4 eGFR 15-29 mL/min/1.73 m~2. Stage G5 eGFR <15 mL/min/1.73 m~2. Ordering Provider: HILARIO CABRAL Report Released Date/Time: Feb 29, 2024 01:30 PM Reporting Lab: [address] [address] Performing Lab: [address] [address] [facility] COMPREHEN SIVE METABOLIC PANEL ASPARTATE AMINOTRANS FERASE [ENZYMATIC ACTIVITY/V OLUME] IN SERUM OR PLASMA 26 U/L 10 - 40 02/28 Specimen Type: PLASMA Comment: eGFR CKD-EPI eGFR calculated using the 2020 CKD-EPI-cre atinine equation; units of measure are mL/min/1.73 m~2. eGFR can only be interpreted if creatinine is in steady state and is not valid in patients with acute kidney injury and in patients on dialysis. CKD is diagnosed based on abnormaliti es of kidney structure or function, present for >3 months, with implication s for health and disease.CKD is classified and stage based on cause, eGFR and albuminuria , quantified as urine albumin to creatinine ratio. eGFR staging of CKD: Stage G1 eGFR >90 mL/min/1.73 m~2. Stage G2 eGFR 60-89 mL/min/1.73 m~2. Stage G3a eGFR 45-59 mL/min/1.73 m~2. Stage G3b eGFR 30-44 mL/min/1.73 m~2. Stage G4 eGFR 15-29 mL/min/1.73 m~2. Stage G5 eGFR <15 mL/min/1.73 m~2. Ordering Provider: HILARIO CABRAL Report Released Date/Time: Feb 29, 2024 01:30 PM Reporting Lab: [address] [address] Performing Lab: [address] [place] [address] [facility] COMPREHEN SIVE METABOLIC PANEL ALANINE AMINOTRANS FERASE [ENZYMATIC ACTIVITY/V OLUME] IN SERUM OR PLASMA 27 U/L 10 - 35 02/28 Specimen Type: PLASMA Comment: eGFR CKD-EPI eGFR calculated using the 2020 CKD-EPI-cre atinine equation; units of measure are mL/min/1.73 m~2. eGFR can only be interpreted if creatinine is in steady state and is not valid in patients with acute kidney injury and in patients on dialysis. CKD is diagnosed based on abnormaliti es of kidney structure or function, present for >3 months, with implication s for health and disease.CKD is classified and stage based on cause, eGFR and albuminuria , quantified as urine albumin to creatinine ratio. eGFR staging of CKD: Stage G1 eGFR >90 mL/min/1.73 m~2. Stage G2 eGFR 60-89 mL/min/1.73 m~2. Stage G3a eGFR 45-59 mL/min/1.73 m~2. Stage G3b eGFR 30-44 mL/min/1.73 m~2. Stage G4 eGFR 15-29 mL/min/1.73 m~2. Stage G5 eGFR <15 mL/min/1.73 m~2. Ordering Provider: HILARIO CABRAL Report Released Date/Time: Feb 29, 2024 01:30 PM Reporting Lab: [address] [address] Performing Lab: [address] [address] [facility] COMPREHEN SIVE METABOLIC PANEL ANION GAP IN SERUM OR PLASMA 8.0 meq/L 9.0 - 18.0 02/28 L Specimen Type: PLASMA Comment: eGFR CKD-EPI eGFR calculated using the 2020 CKD-EPI-cre atinine equation; units of measure are mL/min/1.73 m~2. eGFR can only be interpreted if creatinine is in steady state and is not valid in patients with acute kidney injury and in patients on dialysis. CKD is diagnosed based on abnormaliti es of kidney structure or function, present for >3 months, with implication s for health and disease.CKD is classified and stage based on cause, eGFR and albuminuria , quantified as urine albumin to creatinine ratio. eGFR staging of CKD: Stage G1 eGFR >90 mL/min/1.73 m~2. Stage G2 eGFR 60-89 mL/min/1.73 m~2. Stage G3a eGFR 45-59 mL/min/1.73 m~2. Stage G3b eGFR 30-44 mL/min/1.73 m~2. Stage G4 eGFR 15-29 mL/min/1.73 m~2. Stage G5 eGFR <15 mL/min/1.73 m~2. Ordering Provider: HILARIO CABRAL Report Released Date/Time: Feb 29, 2024 01:30 PM Reporting Lab: [address] [address] Performing Lab: [address] [address] [facility] COMPREHEN SIVE METABOLIC PANEL CREATININE [MASS/VOLU ME] IN SERUM OR PLASMA 0.93 mg/dL 0.72 - 1.25 02/28 Specimen Type: PLASMA Comment: eGFR CKD-EPI eGFR calculated using the 2020 CKD-EPI-cre atinine equation; units of measure are mL/min/1.73 m~2. eGFR can only be interpreted if creatinine is in steady state and is not valid in patients with acute kidney injury and in patients on dialysis. CKD is diagnosed based on abnormaliti es of kidney structure or function, present for >3 months, with implication s for health and disease.CKD is classified and stage based on cause, eGFR and albuminuria , quantified as urine albumin to creatinine ratio. eGFR staging of CKD: Stage G1 eGFR >90 mL/min/1.73 m~2. Stage G2 eGFR 60-89 mL/min/1.73 m~2. Stage G3a eGFR 45-59 mL/min/1.73 m~2. Stage G3b eGFR 30-44 mL/min/1.73 m~2. Stage G4 eGFR 15-29 mL/min/1.73 m~2. Stage G5 eGFR <15 mL/min/1.73 m~2. Ordering Provider: HILARIO CABRAL Report Released Date/Time: Feb 29, 2024 01:30 PM Reporting Lab: [address] [address] Performing Lab: [address] [address] [facility] COMPREHEN SIVE METABOLIC PANEL GLOMERULAR FILTRATION RATE/1.73 SQ M.PREDICTE D [VOLUME RATE/AREA] IN SERUM, PLASMA OR BLOOD BY CREATININE -BASED FORMULA (CKD-EPI 2020) 88 mL/min/{ 1.73_m2} 90 02/28 L Specimen Type: PLASMA Comment: eGFR CKD-EPI eGFR calculated using the 2020 CKD-EPI-cre atinine equation; units of measure are mL/min/1.73 m~2. eGFR can only be interpreted if creatinine is in steady state and is not valid in patients with acute kidney injury and in patients on dialysis. CKD is diagnosed based on abnormaliti es of kidney structure or function, present for >3 months, with implication s for health and disease.CKD is classified and stage based on cause, eGFR and albuminuria , quantified as urine albumin to creatinine ratio. eGFR staging of CKD: Stage G1 eGFR >90 mL/min/1.73 m~2. Stage G2 eGFR 60-89 mL/min/1.73 m~2. Stage G3a eGFR 45-59 mL/min/1.73 m~2. Stage G3b eGFR 30-44 mL/min/1.73 m~2. Stage G4 eGFR 15-29 mL/min/1.73 m~2. Stage G5 eGFR <15 mL/min/1.73 m~2. Ordering Provider: HILARIO CABRAL Report Released Date/Time: Feb 29, 2024 01:30 PM Reporting Lab: [address] [address] Performing Lab: [address] [address] [facility] TSH W/REFLEX FT4 THYROTROPI N [UNITS/VOL UME] IN SERUM OR PLASMA 1.246 u[IU]/mL 0.500 - 5.000 02/28 Specimen Type: PLASMA Comment: eGFR CKD-EPI eGFR calculated using the 2020 CKD-EPI-cre atinine equation; units of measure are mL/min/1.73 m~2. eGFR can only be interpreted if creatinine is in steady state and is not valid in patients with acute kidney injury and in patients on dialysis. CKD is diagnosed based on abnormaliti es of kidney structure or function, present for >3 months, with implication s for health and disease.CKD is classified and stage based on cause, eGFR and albuminuria , quantified as urine albumin to creatinine ratio. eGFR staging of CKD: Stage G1 eGFR >90 mL/min/1.73 m~2. Stage G2 eGFR 60-89 mL/min/1.73 m~2. Stage G3a eGFR 45-59 mL/min/1.73 m~2. Stage G3b eGFR 30-44 mL/min/1.73 m~2. Stage G4 eGFR 15-29 mL/min/1.73 m~2. Stage G5 eGFR <15 mL/min/1.73 m~2. Ordering Provider: HILARIO CABRAL Report Released Date/Time: Feb 29, 2024 01:30 PM Reporting Lab: [address] [address] Performing Lab: [address] [address] [facility] VITAMIN D (25-OH VITAMIN D) SCREEN 25-HYDROXY VITAMIN D3+25-HYDR OXYVITAMIN D2 [MASS/VOLU ME] IN SERUM OR PLASMA 24.2 ng/mL 30.0 - 60.0 02/28 L Specimen Type: PLASMA No comment entered. Ordering Provider: HILARIO CABRAL Report Released Date/Time: Feb 29, 2024 01:30 PM Reporting Lab: [address] [address] Performing Lab: [address] [address] [facility] Vital Signs Combined list of inpatient and outpatient Vital Signs from [employer] and [employer], ranging from 12 months to all on record, depending upon the facility. Vital Sign Value Date Comments Source SYSTOLIC BLOOD PRESSURE 123 09/02/2024 12:14:00 [facility] DIASTOLIC BLOOD PRESSURE 82 09/02/2024 12:14:00 [facility] PULSE OXIMETRY 96 09/02/2024 12:14:00 [facility] PAIN 5 09/02/2024 12:14:00 [facility] TEMPERATURE 98.4 09/02/2024 12:14:[address] [facility] PULSE 100 09/02/2024 12:14:00 [facility] RESPIRATION 17 09/02/2024 12:14:[facility] SYSTOLIC BLOOD PRESSURE 132 07/31/2024 12:00:00 [facility] DIASTOLIC BLOOD PRESSURE 86 07/31/2024 12:00:00 [facility] PULSE OXIMETRY 98 07/31/2024 12:00:00 [facility] PAIN 10 07/31/2024 12:00:00 [facility] TEMPERATURE 97.7 07/31/2024 12:00:00 [facility] PULSE 84 07/31/2024 12:00:00 [facility] RESPIRATION 17 07/31/2024 12:00:00 [facility] SYSTOLIC BLOOD PRESSURE 138 07/05/2024 06:22:00 [facility] DIASTOLIC BLOOD PRESSURE 86 07/05/2024 06:22:00 [facility] [facility] PULSE OXIMETRY 99 07/05/2024 06:22:00 [facility] WEIGHT 213.8 07/05/2024 06:22:00 [facility] BMI 35 kg/m2 07/05/2024 06:22:00 [facility] PAIN 9 07/05/2024 06:22:00 [facility] HEIGHT 66.0 07/05/2024 06:22:00 [facility] TEMPERATURE 97.8 07/05/2024 06:22:00 [facility] PULSE 90 07/05/2024 06:22:00 [facility] RESPIRATION 18 07/05/2024 06:22:00 [facility] SYSTOLIC BLOOD PRESSURE 130 06/18/2024 12:26:26 [facility] DIASTOLIC BLOOD PRESSURE 78 06/18/2024 12:26:26 [facility] PULSE OXIMETRY 98 06/18/2024 12:26:26 [facility] WEIGHT 215.39 06/18/2024 12:26:26 [facility] BMI 35 kg/m2 06/18/2024 12:26:26 [facility] PAIN 5 06/18/2024 12:26:26 [facility] HEIGHT 66 06/18/2024 12:26:26 [facility] TEMPERATURE 98.1 06/18/2024 12:26:26 [facility] PULSE 92 06/18/2024 12:26:26 [facility] RESPIRATION 17 06/18/2024 12:26:26 [facility] SYSTOLIC BLOOD PRESSURE 134 04/02/2024 13:50:00 [facility] DIASTOLIC BLOOD PRESSURE 77 04/02/2024 13:50:00 [facility] PULSE OXIMETRY 98 04/02/2024 13:50:00 [facility] PAIN 10 04/02/2024 13:50:00 [facility] TEMPERATURE 97.6 04/02/2024 13:50:00 [facility] PULSE 85 04/02/2024 13:50:00 [facility] RESPIRATION 18 04/02/2024 13:50:00 [facility] Encounters Combined list of: 1) Encounters from Department of [facility] facilities going backup to the last 18 months, not all [place] inpatient encounters are included; 2) Encounters from the Department of [facility] facilities going backup to 280 months. Location Location Details Encounter Type Encounter Number Reason For Visit Attending Provider ADM Date DC Date Status Disposition Source [facility] Outpatient Encounter [id number] Diagnos is: ICD-10- CM I15.9 Seconda ry hyperte nsion, 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 SEAGO,JASMINA E F 05/25 [facility] Outpatient Encounter [id number] 05/31 [facility] Outpatient Encounter [id number] 05/31 [facility] Outpatient Encounter [id number] Diagnos is: ICD-10- CM I11.9 Hyperte nsive heart disease without heart failure CALEB CELAYA 05/31 [facility] Outpatient Encounter [id number] [id number] 05/31 [facility] Outpatient Encounter [id number] [id number] 05/31 [facility] Outpatient Encounter [id number] Diagnos is: ICD-10- CM I15.9 Seconda ry hyperte nsion, 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 SEAGO,JASMINA E F 06/08 [facility] Outpatient Encounter [id number] [id number] 06/13 [facility] OFFICE O/P EST MOD 30 MIN [id number] [id number] Diagnos is: ICD-10- CM M54.50 Low back pain, 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 Silvio BRASHER L 06/13 [facility] Outpatient Encounter [id number] [id number] Silvio BRASHER L 06/13 [facility] Outpatient Encounter [id number] [id number] 06/14 [facility] Outpatient Encounter [id number] [id number] Diagnos is: ICD-10- CM Z12.2 Encntr screen for maligna nt neoplas m of respira tory organs MARROQUIN-GUT IERREZ,JENN DA 06/14 [facility] HC PRO PHONE CALL 5-10 MIN [id number] [id number] Diagnos is: ICD-10- CM 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.224 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, undeter mined, sequela ANNMARIE,DENY LAG S 06/14 [facility] HC PRO PHONE CALL 11-20 MIN [id number] [id number] Diagnos is: ICD-10- CM I15.9 Seconda ry hyperte nsion, 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 RILLO,CALEB TOMASZ A 06/15 [facility] Outpatient Encounter [id number] [id number] 06/16 [facility] Outpatient Encounter [id number] [id number] 06/26 [facility] Outpatient Encounter [id number] [id number] 06/27 [facility] Outpatient Encounter [id number] [id number] Diagnos is: ICD-10- CM I11.9 Hyperte nsive heart disease without heart failure CALEB CELAYA A 07/04 [facility] Outpatient Encounter [id number] [id number] 07/10 [facility] OFF/OP EST MAY X REQ PHY/QHP [id number] [id number] Diagnos is: ICD-10- CM Z76.89 Persons [facility] in oth circums karthik HUGO,RENÉ MARKS H 07/10 [facility] HC PRO PHONE CALL 21-30 MIN 23836-4.64 [id number] Diagnos is: ICD-10- CM I11.9 Hyperte nsive heart disease without heart failure CALEB CELAYA A 07/10 [facility] Outpatient Encounter [id number] [id number] 07/13 [facility] OFFICE O/P EST HI 40 MIN [id number] [id number] Diagnos is: ICD-10- CM Z12.2 Encntr screen for maligna nt neoplas m of respira tory organs MARROQUIN-GUT JENN AMIN DA 07/16 [facility] Outpatient Encounter [id number] [id number] Diagnos is: ICD-10- CM Z12.2 Encntr screen for maligna nt neoplas m of respira tory organs MARROQUIN-GUT JENN AMIN DA 07/18 [facility] Outpatient Encounter [id number] [id number] [facility] Outpatient Encounter [id number] [id number] 08/13 [facility] Outpatient Encounter [id number] [id number] 08/17 [facility] Outpatient Encounter [id number] [id number] 08/21 [facility] OFFICE O/P EST MOD 30 MIN [id number] [id number] Diagnos is: ICD-10- CM C43.9 Maligna nt melanom a of skin, 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 Silvio BRASHER L 09/05 [facility] Outpatient Encounter [id number] [id number] 10/02 [facility] Outpatient Encounter [id number] [id number] 10/18 [facility] Outpatient Encounter [id number] [id number] 10/22 [place] [place] [facility] OFFICE O/P NEW MOD 45 MIN 36428-6.60 [id number] Diagnos is: ICD-10- CM H25.9 Unspeci fied age-rel ated catarac t DENIA LAWSON 11/08 [place] [place] [facility] [place] [place] [facility] FIT SPECTACLES MULTIFOCAL 33314-1.60 [id number] Diagnos is: ICD-10- CM H52.7 Unspeci fied disorde r of refract NORRIS Nguyen 11/08 [place] [place] [facility] Out[facility] Encounter [id number] [id number] 11/17 [facility] Outpatient Encounter [id number] [id number] 11/18 [facility] HC PRO PHONE CALL 5-10 MIN 94758-9.60 [id number] Diagnos is: ICD-10- CM Z12.2 Encntr screen for maligna nt neoplas m of respira tory organs ANNMARIE,DENY LAG S 11/19 [facility] Outpatient Encounter 43962-9.64 [id number] 11/26 [facility] Outpatient Encounter [id number] [id number] 11/27 [facility] Outpatient Encounter [id number] [id number] 11/28 [facility] Outpatient Encounter [id number] [id number] 12/19 [facility] Outpatient Encounter 32359-3.60 [id number] 12/19 [facility] EMERGENCY DEPT VISIT [facility] [id number] [id number] Diagnos is: ICD-10- CM Z04.9 Encount er for examina tion and observa tion for unsp reason TAMIKA TRIVEDI 01/04 [facility] Outpatient Encounter 49839-8.64 [id number] 01/27 [facility] EMERGENCY DEPT VISIT [facility] 37428-8.64 [id number] Diagnos is: ICD-10- CM M25.562 Pain in left knee SABI ROJAS IN B 02/04 [facility] Outpatient Encounter [id number] [id number] 02/10 [facility] MEASURE BLOOD OXYGEN LEVEL 35737-4.64 [id number] Diagnos is: ICD-10- CM M54.32 Sciatic a, left side JULIENALVARO TENZIN 02/13 [facility] NURSING ASSESSMENT /EVALUATN 42041-8.64 [id number] Diagnos is: ICD-10- CM Z53.21 Proc/tr tmt not crd out d/t pt lv bef seen by th care prov 02/26 [facility] Outpatient Encounter [id number] [id number] 02/[address] HC PRO PHONE CALL 5-10 MIN 98937-5.64 [id number] Diagnos is: ICD-10- CM 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, 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 DELANO CARTERE A 02/[address] Outpatient Encounter 26828-3.64 [id number] 02/28 [facility] Outpatient Encounter 31532-5.64 [id number] 02/28 [facility] Outpatient Encounter 55811-3.64 [id number] 02/28 [facility] Outpatient Encounter 39091-8.64 [id number] 02/28 [facility] Outpatient Encounter [id number] [id number] 02/28 [facility] OFF[facility] O/P NEW HI 60 MIN 43243-3.64 [id number] Diagnos is: ICD-10- CM M13.862 Other specifi ed arthrit is, left knee HILARIO CABRAL 02/28 [facility] Outpatient Encounter [id number] [id number] 02/28 [facility] Outpatient Encounter 43443-8.64 [id number] HILARIO CABRAL 03/02 [facility] Outpatient Encounter 49433-7.64 [id number] 03/02 [facility] Outpatient Encounter [id number] [id number] 03/03 [facility] Outpatient Encounter [id number] [id number] 03/03 [facility] Outpatient Encounter [id number] [id number] 03/03 [facility] Outpatient Encounter 75732-5.64 [id number] 03/03 [facility] Outpatient Encounter 72598-0.64 [id number] 03/03 [facility] Outpatient Encounter 60696-9.64 [id number] HILARIO CABRAL 03/03 [facility] Outpatient Encounter [id number] [id number] 03/04 [facility] Outpatient Encounter 29243-7.64 [id number] 03/04 [facility] Outpatient Encounter [id number] [id number] 03/04 [facility] Outpatient Encounter 72743-7.64 [id number] 03/05 [facility] Outpatient Encounter 34392-4.64 [id number] 03/05 [facility] Outpatient Encounter 97901-7.64 [id number] 03/05 [facility] Outpatient Encounter 55014-5.64 [id number] ISAIAH BENAVIDEZ 03/05 [facility] Outpatient Encounter 51272-2.64 [id number] HILARIO CABRAL 03/05 [facility] Outpatient Encounter 31899-2.64 [id number] 03/06 [facility] SELF-MGMT EDUC & TRAIN 1 PT [address]-6.64 [id number] Diagnos is: ICD-10- CM M79.606 Pain in leg, 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 BRINA FISHER P 03/06 [facility] Outpatient Encounter [id number] [id number] Mario SMITH 03/07 [facility] Outpatient Encounter 25284-2.64 [id number] HILARIO CABRAL 03/11 [facility] Outpatient Encounter 80015-1.64 [id number] 03/18 [facility] Outpatient Encounter 70108-4.64 [id number] 03/19 [facility] Outpatient Encounter [id number] [id number] 03/19 [facility] Outpatient Encounter 91822-9.64 [id number] PRAMODISAIAH Mario 03/19 [facility] Outpatient Encounter 61659-9.64 [id number] 03/21 [facility] Outpatient Encounter [id number] [id number] 03/21 [facility] Outpatient Encounter [id number] [id number] 03/21 [facility] Outpatient Encounter 82129-4.64 [id number] PRAMOD,ISAIAH METCALFFLORINDA Martin 03/21 [facility] Outpatient Encounter 74670-4.64 [id number] 03/27 [facility] Outpatient Encounter 81159-4.64 [id number] 03/28 [facility] Outpatient Encounter 10083-8.64 [id number] 03/28 [facility] Outpatient Encounter [id number] [id number] 22 03/28 [facility] Outpatient Encounter [id number] [id number] 03/28 [facility] Outpatient Encounter [id number] [id number] 03/28 [facility] Outpatient Encounter 10576-0.64 [id number] TAWANDA FAJARDO 03/28 [facility] Outpatient Encounter [id number] [id number] 03/31 [facility] Outpatient Encounter [id number] [id number] 03/31 [facility] Outpatient Encounter 34685-0.64 [id number] 49 03/31 [facility] Out[facility] Encounter [id number] [id number] ISAIAH BENAVIDEZ M 03/31 [facility] OFF/OP EST OCTOBER X REQ PHY/QHP 19463-6.64 [id number] Diagnos is: ICD-10- CM R69 Illness , 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 VELAYO,OCTOBER D 04/02 [facility] OFFICE O/P EST LOW 20 MIN 88473-7.64 [id number] Diagnos is: ICD-10- CM M54.32 Sciatic a, left side SUSURAS,CH RISTINE M 04/02 [facility] GAIT TRAINING THERAPY 52053-3.64 [id number] Diagnos is: ICD-10- CM M13.862 Other specifi ed arthrit is, left knee CHUNDI,PRA MADASHREE 04/02 [facility] Outpatient Encounter [id number] [id number] 04/03 [facility] Outpatient Encounter [id number] [id number] 04/15 [facility] Outpatient Encounter 49892-6.64 [id number] 04/24 [facility] Outpatient Encounter 71210-3.64 [id number] 05/05 [facility] Outpatient Encounter 94803-9.64 [id number] 05/05 [facility] Outpatient Encounter [id number] [id number] 05/05 [facility] Outpatient Encounter 95727-0.64 [id number] 05/12 [facility] Outpatient Encounter 87150-9.64 [id number] 05/15 [facility] Outpatient Encounter 38036-6.64 [id number] 05/22 [facility] Outpatient Encounter 24504-9.64 [id number] 05/22 [facility] Outpatient Encounter 38669-0.64 [id number] 05/22 [facility] Outpatient Encounter 56378-8.64 [id number] 05/22 [facility] Outpatient Encounter 54480-7.64 [id number] 26 05/22 [facility] Outpatient Encounter [id number] [id number] 05/22 [facility] Encounter 11469-4.64 [id number] 27 05/22 [facility] Outpatient Encounter 45769-9.64 [id number] TAWANDA FAJARDO 05/22 [facility] Outpatient Encounter 12036-3.64 [id number] 05/23 [facility] Outpatient Encounter 55229-9.64 [id number] 05/23 [facility] Outpatient Encounter 61020-1.64 [id number] 05/23 [facility] Outpatient Encounter [id number] [id number] 05/23 [facility] Outpatient Encounter 96936-6.64 [id number] 05/23 [facility] Outpatient Encounter 27979-6.64 [id number] ISAIAH BENAVIDEZ 05/23 [facility] 94139-3.64 [id number] 05/26 [facility] Outpatient Encounter 40114-6.64 [id number] 05/26 [facility] Outpatient Encounter 11624-4.64 [id number] 05/26 [facility] Outpatient Encounter 12931-8.64 [id number] 05/30 [facility] Outpatient Encounter 57356-6.64 [id number] 05/30 [facility] Outpatient Encounter 40118-9.64 [id number] 05/30 [facility] Outpatient Encounter 34264-2.64 [id number] ISAIAH BENAVIDEZ 05/30 [facility] Outpatient Encounter 75244-6.64 [id number] 06/06 [facility] Outpatient Encounter [id number] [id number] 06/06 [facility] Outpatient Encounter 73015-4.64 [id number] 06/06 [facility] Outpatient Encounter [id number] [id number] ISAIAH BENAVIDEZ 06/06 [facility] OFF/OP CNSLTJ NEW/EST MOD 40 [id number] [id number] Diagnos is: ICD-10- CM M25.562 Pain in left knee SHERRIE HA 06/18 [facility] Outpatient Encounter 47228-6.64 [id number] Mario MACIEL 07/02 [facility] Outpatient Encounter 07304-4.64 [id number] 07/02 [facility] Outpatient Encounter 47584-2.64 [id number] 07/04 [facility] PH1 ASSMT&MGMT NQHP 5-10 00255-6.64 [id number] Diagnos is: ICD-10- CM 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, 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 ISAIAH BENAVIDEZ 07/04 [facility] Outpatient Encounter [id number] [id number] 07/05 [facility] EMERGENCY DEPT VISIT MOD MDM 38064-5.64 [id number] Diagnos is: ICD-10- CM M25.562 Pain in left knee KYLE MARSH 07/05 [facility] Outpatient Encounter 54071-3.64 [id number] 07/05 [facility] Outpatient Encounter 87589-5.64 [id number] 07/08 [facility] PH1 ASSMT&MGMT NQHP 5-10 95666-2.64 [id number] Diagnos is: ICD-10- CM 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, 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 ISAIAH BENAVIDEZ M 07/08 [facility] Outpatient Encounter [id number] [id number] 07/10 [facility] Outpatient Encounter 08110-7.64 [id number] 07/31 [facility] OFFICE O/P EST MOD 30 MIN 69437-8.64 [id number] Diagnos is: ICD-10- CM M17.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 , left knee DILCIA SHERRIE A 07/31 [facility] 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 15 MIN 38518-0.64 [id number] Diagnos is: ICD-10- CM M17.9 Osteoar thritis of knee, 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 JANETJENNIE M 08/01 [facility] PT EVAL HIGH COMPLEX 45 MIN 38507-1.64 [id number] 91 Diagnos is: ICD-10- CM M17.9 Osteoar thritis of knee, 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 JANNETH POTTER 08/06 [facility] Outpatient Encounter [id number] [id number] 08/07 [facility] Outpatient Encounter [id number] [id number] 08/08 [facility] APPL MODALITY 1+ESTIM EA 15 [id number] [id number] Diagnos is: ICD-10- CM M17.9 Osteoar thritis of knee, 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 CHUNDI,PRA MADASHREE 08/08 [facility] Outpatient Encounter [id number] [id number] 08/12 [facility] THERAPEUTI C EXERCISES 70952-2.64 [id number] Diagnos is: ICD-10- CM M17.9 Osteoar thritis of knee, 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 CHUNDI,PRA MADASHREE 08/12 [facility] Outpatient Encounter 39200-9.64 [id number] 08/19 [facility] APPL MODALITY 1+ESTIM EA 15 14169-3.64 [id number] Diagnos is: ICD-10- CM M17.9 Osteoar thritis of knee, 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 CHUNDI,PRA MADASHREE 08/19 [facility] Outpatient Encounter 34627-5.64 [id number] 08/21 [facility] Outpatient Encounter 95354-7.64 [id number] 08/21 [facility] APPL MODALITY 1+ESTIM EA 15 [id number] Diagnos is: ICD-10- CM M17.9 Osteoar thritis of knee, 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 CHUNDI,PRA MADASHREE 08/21 [facility] Outpatient Encounter [id number] 08/26 [facility] MANUAL THERAPY 1/> [facility] [id number] Diagnos is: ICD-10- CM M17.9 Osteoar thritis of knee, 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 CHUNDI,PRA MADASHREE 08/26 [facility] Outpatient Encounter [id number] 08/28 [facility] MANUAL THERAPY 1/> [facility] [id number] [id number] Diagnos is: ICD-10- CM M17.9 Osteoar thritis of knee, 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 CHUNDI,PRA MADASHREE 08/28 [facility] PT RE-EVAL EST PLAN CARE [id number] Diagnos is: ICD-10- CM M17.9 Osteoar thritis of knee, 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 CHUNDI,PRA MADASHREE 08/29 [facility] Outpatient Encounter [id number] 08/29 [facility] Outpatient Encounter [id number] 09/02 [facility] OFFICE O/P EST LOW 20 MIN [id number] Diagnos is: ICD-10- CM M17.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 , left knee MAYRA LUJAN S 09/02 [facility] Outpatient Encounter [id number] 09/05 [facility] Outpatient Encounter [id number] 09/11 [facility] THERAPEUTI C EXERCISES 47501-6.64 [id number] Diagnos is: ICD-10- CM M17.9 Osteoar thritis of knee, 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 CHUNDI,PRA MADASHREE 09/11 [facility] Outpatient Encounter [id number] IRISH OLIVER 09/22 [facility] Outpatient Encounter [id number] 09/25 [facility] THERAPEUTI C EXERCISES [id number] Diagnos is: ICD-10- CM M17.9 Osteoar thritis of knee, unspeci JANNETH Ames 09/25 [facility] Outpatient Encounter [id number] 09/25 [facility] Outpatient Encounter [id number] [id number] 09/25 [facility] Outpatient Encounter [id number] 09/25 [facility] Outpatient Encounter [id number] [id number] 09/25 [facility] Outpatient Encounter [id number] [id number] 10/23 [facility] Outpatient Encounter [id number] [id number] 10/23 [facility] Outpatient Encounter [id number] [id number] 10/23 [facility] PH1 ASSMT&MGMT NQHP 21-30 [id number] Diagnos is: ICD-10- CM F17.211 Nicotin e depende nce, cigaret dara, in remissi on CHICK,CORI NA I 10/29 [facility] Outpatient Encounter [id number] 10/29 [facility] Outpatient Encounter [id number] 11/07 [facility] Outpatient Encounter [id number] 11/07 [facility] Social History Combined list of available smoking, tobacco, and other social history from Department of Defense and Veterans Affairs facilities. Social History Type Response Date Comment Source Tobacco smoking status NHIS VA-TOBACCO QUIT 1 TO < 5 YRS 02/29/2024 [facility] History of tobacco use VA-TOBACCO FORMER USER 02/29/2024 [facility] History of tobacco use [place]-TO[place]ACCO FORMER USER 06/13/2023 [facility] History of tobacco use WA-TOBACCO USER SOME DAYS 01/03/2023 [facility] History of tobacco use VA-TOBACCO USER EVERY DAY 01/02/2022 [facility] History of tobacco use VA-TOBACCO USE WI 30 MIN OF WAKEUP 02/15/2021 [facility] History of tobacco use VA-TOBACCO USE HEALTHCARE REPRESENTATIVE NO 11/13/2018 [facility] History of tobacco use CURRENT TOBACCO USER 01/04/2017 [facility] History of tobacco use QUIT TOBACCO IN THE LAST 12 MONTHS 05/31/2011 [facility] History of tobacco use CURRENT TOBACCO USER 08/10/2010 [facility] History of tobacco use CURRENT TOBACCO USER 08/28/2007 cigarettes 1 pack every 2 days [facility] History of tobacco use CURRENT TOBACCO USER 07/16/2006 8-12 cigs daily [facility] History of tobacco use CURRENT SMOKER 07/11/2005 [facility] History of tobacco use CURRENT SMOKER 01/26/2004 [facility] History of tobacco use CURRENT SMOKER 12/29/2002 [facility] History of tobacco use CURRENT SMOKER 08/29/2000 SMOKES 2PPD [facility] Plan of Care List of future care activities from [facility] facilities. Additional future care activities may be listed in the Assessment and Plan section. Date/Time Care Activity Care Activity Detail Facili ty 02/26/2025 AMBULATORY - MEDICINE AMBULATORY - MEDICI NE [facility] Advance Directives List of completed, amended, or rescinded Advance Directives on record at [facility] facilities. An actual copy of the Directive is not included. Date Advance Directive Provider Source 06/13/2023 ADVANCE DIRECTIVE DISCUSSION VÍCTOR HAMPTON [facility] 01/16/2008 ADVANCE DIRECTIVE ROBERTA GARCIA [facility] 01/16/2008 ADVANCE DIRECTIVE RALPH DE DIOS [facility]
[2024-11-23 10:16] VITALS: BP 148/117; PULSE 89; RESP 20; TEMP 36.9; O2SAT 95; BMI 34.7
--- NOTE | 2024-11-23 10:16 | HMH.EDGENADL ---
Discharge Plan Disposition Patient Disposition: Home, Self-Care Prescriptions Prescriptions: New amoxicillin-pot clavulanate 875-125 mg tablet 1 tab PO Q12H 5 Days Qty: 10 0RF acetaminophen [Tylenol Extra Strength] 500 mg tablet 1,000 mg PO Q6H PRN (Reason: fever) Qty: 20 0RF ibuprofen 600 mg tablet 600 mg PO Q8H PRN (Reason: pain) Qty: 14 0RF Referrals Follow up/Referrals: Provider,Referral, MD [Primary Care Provider, Medical] - See instructions Activity Restrictions/Add. Instructions Additional Instructions/Restrictions: See dentist as soon as possible and return the emergency department for any new or worsening symptoms including trouble opening your jaw development of fever or difficulty swallowing. Dental urgent care clinic [facility] [place] [address] tel:[phone] [facility] is a walk-in clinic for patients, 14 years of age and older, needing immediate care due to dental pain and swelling. Clinic registration is open?7:45 - 10:30 a.m., Sunday through Sunday?(closed on holidays and other select dates - see below). Patients are seen on a first-come, first-served basis and may experience wait times. Services are only available for a select number of patients each day. Patients are evaluated by expert dentists, and treated by student dentists. If a patient's needs are too great or do not meet the educational needs of dental students, they may be referred to another dental clinic. Payment Details A $129 evaluation fee, which includes examination and an X-ray, is due upon registration. An additional payment may be required at the time of service depending on the treatment provided and any insurance benefits. [facility] Closure dates *Dates subject to change.?Please check [email or web address] for closure notices. November 20 December 04 For dental emergencies when other clinic options are closed, call?[phone]:[phone]. Clinical Impressions Clinical Impression: Toothache Instructions Patient Instructions: DI for Dental Pain Print Language Print Language: Sudanese Discharge ED Provider: Shalonda Lovelace General Adult HPI General Chief complaint: Dental/Oral Stated complaint: L jaw pain, Migraine, Nausea Time Seen by Provider: 11/23/24 10:15 History of Present Illness HPI narrative: Patient is a 69-year-old with past medical history significant for poor access to primary care presents to the emergency department with dental pain. Over the last 2 days patient has had pain in his posterior left molar. Pain is 10 out of 10 whenever he bites down but is 2 out of 10 whenever he he is not biting. Has not seen a dentist in years. Is originally from [place] but is in town seeing his family. Pain also radiates to his left ear into the back of the left head. Pain is improved with Advil. No difficulty swallowing vision changes fever chills chest pain shortness of breath. Related Data Previous Rx's ?Medication ?Instructions ?Recorded acetaminophen 500 mg tablet 1,000 mg (2 x 500 mg) PO Q6H PRN 11/23/24 (Tylenol Extra Strength) fever #20 tabs amoxicillin 875 mg-potassium 1 tab PO Q12H 5 days #10 tabs 11/23/24 clavulanate 125 mg tablet ibuprofen 600 mg tablet 600 mg PO Q8H PRN pain #14 tabs 11/23/24 Allergies Allergy/AdvReac Type Severity Reaction Status Date / Time No Known Allergies Allergy Verified 11/23/24 10:44 [facility] Disclaimer: The information contained in this section may have been updated after the patient was seen, as this information can be updated by other users. Social History Smoking Status: Former smoker alcohol intake: never current occupational status: unemployed Travel in the last 8 weeks?: None ROS Obtained: Yes All systems reviewed & no additional complaints except as documented Physical Exam General General appearance: alert and in no apparent distress ENT ENT exam: Present mucous membranes moist, TM's normal bilaterally, normal external ear exam and other (No erythema of the posterior pharynx no trismus poor dentition with caries of the bilateral maxillary molars without associated drainable abscesses, no facial swelling no cervical lymphadenopathy) Neck Neck exam: Present normal inspection; Absent tenderness or lymphadenopathy Respiratory Respiratory exam: Present normal lung sounds bilaterally and respiratory distress Cardiovascular Cardiovascular exam: Present regular rate and normal rhythm Abdominal Exam Abdominal exam: Present soft; Absent tenderness Back Exam Back exam: Present normal inspection and full ROM Neurological Exam Neurological exam: Present alert Skin Skin exam: Present warm and dry Lymphatic Lymphatic Findings: no adenopathy Medical Decision Making Medical Records Screening: Per USPSTF and CDC recommendations, given the prevalence of disease in our region, it is our hospital?s policy to screen for HIV and viral Hepatitis for all patients aged 18 and over and those with ongoing risk factors. Kulwant Inquiry Pt receiving controlled substance: No Vital Signs: 11/23/24 10:16 11/23/24 10:55 Temperature 98.4 F 98 F Temperature Source Oral Pulse Rate 90 Pulse Rate [Right] 89 Respiratory Rate 20 18 Blood Pressure 141/100 H Blood Pressure [Right Arm] 148/117 H Blood Pressure Mean [Right Arm] 127 02 Sat by Pulse Oximetry 95 Oxygen Delivery Method Room Air Medical Decision Narrative: In summary, this 69-year-old male presents to the emergency department today with dental pain. On initial evaluation patient is hemodynamically stable saturating appropriately on room air afebrile no acute distress. Differential diagnosis includes but is not limited to dental abscess or caries. No visible abscess to drain on exam. Low concern for deep space infection as no lymphadenopathy full range of motion of the neck. No further workup indicated at this time. Patient given referral for walk-in dentistry clinic as patient does not have a dentist. Provided multimodal pain control and Augmentin paper prescription per patient's request. Critical Care Critical Care Time Critical Care Time: No
--- NOTE | 2024-11-23 10:19 | ECG_ITS ---
APPROVED REPORT Exam: Resting ECG HR:101 bpm ECG Measurements Heart Rate 101 AXES DE 146 P 50 QRSd 93 QRS -23 QT 345 T 39 QTc 403 Conclusion SINUS TACHYCARDIA BORDERLINE LEFT AXIS DEVIATION [QRS AXIS < -20] ABNORMAL RHYTHM ECG UNCONFIRMED REPORT Electronically signed by : ESPINOZA YANES, 11/25/2024 06:35:24
--- OUTSIDE RECORDS SUMMARY | 2024-11-23 10:50 | XMS_ITS | Encounter Summary ---
Author Organization [facility] Health Address [address] [place] [address] Care Team Providers Care Remote Sensing Advisor Name Role Phone Unavailable Primary Care Provider Unavailabl e Prior Encounters Date Type Department Care Team Description 06/23/2019 Converted CPS Chart Documents [facility] [address], [address] [place] [address] <No scans attached> 06/23/2019 Converted 13x Documents [facility] [address], [address] [place] [address] <No scans attached> Plan of Treatment Not on file Procedures Procedure Name Priority Date/Time Associated Diagnosis Comments MISSED APPOINTMENT Routine 03/12/2014 12 :00 AM MST MISSED APPOINTMENT Routine 03/12/2014 12 :00 AM MST MISSED APPOINTMENT Routine 10/13/2013 12 :00 AM MST 19 [place]NOR AM[place] 2 SURFACE Routine 09/03/19 14 12:00 AM MST 31 O AMALGAM 1 SURFACE Routine 4 12:00 AM MST 18 O AMALGAM 1 SURFACE Routine 4 12:00 AM MST 14 L AMALGAM 1 SURFACE Routine 4 12:00 AM MST 30 ENDODONTIC THERAPY, MOLAR TOOTH (EXCLUDING FINAL FAITH) Routine 09/02/2013 12:00 AM MST COMPREHENSIVE ORAL EVALUATION - NEW OR ESTABLISHED PATIENT Routine 09/02/2013 12:00 AM MST IPE Routine 09/02/2013 12:00 AM MST PANORAMIC RADIOGRAPHIC IMAGE Routine 09/02/2013 12:00 AM MST INTRAORAL - COMPREHENSIVE SERIES OF RADIOGRAPHIC IMAGES Routine 09/02/2013 12:00 AM MST INTRAORAL PHOTO Routine 09/02/2013 12:00 AM MST INTRAORAL PHOTO Routine 09/02/2013 12:00 AM MST INTRAORAL PHOTO Routine 09/02/2013 12:00 AM MST INTRAORAL PHOTO Routine 09/02/2013 12:00 AM MST 30 MODBL COMPOSITE FILLING Routine 09/02/2013 12:00 AM [facility] Visit Diagnoses Not on file
--- OUTSIDE RECORDS SUMMARY | 2024-11-23 10:50 | XMS_ITS | Clinical Summary ---
Author Organization [facility] Health Address [address] [place] [address] Care Team Providers Care Assistant Service Manager Name Role Phone Unavailable Primary Care Provider Unavailabl e Social History Tobacco Use Types Packs/Day Years Used Date Smoking Tobacco: Never Assessed Sex and Gender Information Value Date Recorded Sex Assigned at Not on file Legal Sex Male 10:17 PM PST Gender Identity Not on file Sexual Orientation Not on file Plan of Treatment Not on file
--- OUTSIDE RECORDS SUMMARY | 2024-11-23 10:51 | XMS_ITS | Data Portability ---
Author Organization [facility] Address [address] [place] [address] Assessment No assessment recorded. Plan of Treatment Reminders Order Date Submit Date Provider Last Modified By Organization Details Last Modified Time Details Appointments None record ed. Lab None record ed. Referral None record ed. Procedures None record ed. Surgeries None record ed. Imaging XR, foot 022 11/29/19 [email or web address] In-Office Order, Internal Use Only DO Not Attach Compendium DO Not Attach Compendium, Do Not Delete/merge, [id number] 12:34:55 Medication Orders None record ed. Patient TargetsNo targets recorded. Patient Instructions Encounter Date Encounter Id Patient Instructions Last Modified By Organization Details Last Modified Time 11/28/2021 [id number] diabetes foot health: care instructions [email or web address] Not available 11/28/2021 12:34:55 bunion removal: before your surgery [email or web address] Not available 11/28/2021 12:34:55 A thorough discussion was achieved with patient regarding the diagnosis, treatment plan, treatment options, prognosis, and possible complications. I invited the patient to contact me anytime at all in between visits with any further problems or questions or concerns should they arise prior to his next visit which should be scheduled , in 3 weeks so that the continuity of care can be maintained and so the further recommendation of treatment options may be rendered, if necessary [email or web address] Not available 11/28/2021 12:33:55 12/26/2021 [id number] eating healthy foods: care instructions [email or web address] Not available 12/26/2021 14:40:31 A thorough discussion was achieved with patient regarding the diagnosis, treatment plan, treatment options, prognosis, and possible complications. I invited the patient to contact me anytime at all in between visits with any further problems or questions or concerns should they arise prior to his next visit which should be scheduled , as needed [email or web address] Not available 12/26/2021 14:57:19 Reason for Referral None Reported. Results Created Date Observation Date Name Description Value Unit Range Abnormal Flag Note LastModifiedBy Organization Detail LastModifiedTime 11/26/19 22 XR, foot No observ ation record ed. [email or web address] In-Office Order Internal Use Only DO Not Attach Compendium DO Not Attach Compendium, Do Not Delete/merge, [id number] 11/28/2021 11:56:58 Result Notes None recorded. Problems Name Problem SNOMED Code Status Onset Date Resolution Date Notes Provider Name and Address Organization Details Recorded Time Bunion 105975102 Active 2021 Jay Morton DPM [address], [place], [address], [facility] 2 11:55:34 Diabetic foot 863776104 Active 2021 Jay Morton DPM [address], [place], [address], [facility] 2 11:57:07 Plantar wart of right foot 156545922487341 01 Active 2021 Jay Morton DPM [address], [place], [address], [facility] 2 12:32:48 Obesity 154530212 Active 2021 Jay Morton DPM [address], [place], [address], [facility] 2 14:57:07 Problem Notes None recorded. Procedures Surgical History Date Name Laterality Status Provider Name and Address Organization Details Recorded Time 2 Wart Excision Procedure completed Jay Morton DPM [address], [place], [address], [facility] 11/28/2021 12:32:29 Imaging Results None recorded. Procedure Notes None recorded. Medical Equipment None Reported. Allergies No known drug allergies Medications Not known to be on any medication Vitals Date Recorded Body height Body mass index (BMI) Body weight Heart rate Oxygen saturation Oxygen saturation in Arterial blood by Pulse oximetry Systolic blood pressure Diastolic blood pressure Provider Name and Address Organization Details Last Updated DateTime 2 167.64 cm 30 kg/m2 02096.1 8 g 84 /min 95 % 95 % 136 mm[Hg] 74 mm[Hg] Romana Forman [facility] 2 12:06:30 Date Recorded Body height Body mass index (BMI) Body weight Systolic blood pressure Diastolic blood pressure Provider Name and Address Organization Details Last Updated DateTime 12/26/2021 167.64 cm 30 kg/m2 64605.18 g 136 mm[Hg] 74 mm[Hg] Arely Miguel [facility] 2 14:21:47 Social History Question Answer Notes LastModified by [employer] Details LastModified Time Tobacco Smoking Status Current [facility] 12/26/2021 14:23:05 Do You Have An Advance Directive? No [email or web address] Information not available 12/26/2021 What Is Your Level Of Caffeine Consumption? Moderate [email or web address] Information not available 12/26/2021 What Was The Date Of Your Most Recent Tobacco Screening? 12/26/2021 [email or web address] Information not available 12/26/2021 Has Tobacco Cessation Counseling Been Provided? No [email or web address] Information not available 12/26/2021 How Many Days In The Past Year Have You Consumed 5 Or More Drinks? 364 [email or web address] Information not available 12/26/2021 Sex: Unknown Functional Status Question Answer Note LastModified by [employer] Details LastModified Time Do you use any illicit or recreational drugs? No [email or web address] Information not available 12/26/2021 Do you or have you ever used any other forms of tobacco or nicotine? No [email or web address] Information not available 12/26/2021 What is your level of alcohol consumption? Moderate [email or web address] Information not available 12/26/2021 Mental Status None recorded. Family History Nothing Reported. Medical History No medical history recorded. Past Encounters Encounter ID Performer Location Encounter Start Date Encounter Closed Date Diagnosis/Indication Diagnosis SNOMED-CT Code Diagnosis ICD10 Code Diagnosis Note [id number] Jay Copoloff, DPM [facility] [place] [address] [place] [address] 11/28/2021 11:34:49 11/29/2021 20:47:28 Diabetic foot 165065476 E11.59 Bunion 106441030 M21.61 9 1. Initial exam and evaluation 2. Advised patient that his bunion deformity would be amenable to a Fitch bunionecto my as an outpatient procedure to be performed at [facility].3. #3-view (AP, LAT, Oblique) LEFT foot radiograph ic images were obtained today in office, reviewed, results reported to patient. Plantar wa rt of right foot 2246460058 1869076 B07.0 1. Initial exam and evaluation 2. Preoperati ve consultati on 3. The patient read and signed preoperati ve consent form and was made aware of risk and benefit of procedure and alternativ e treatment options available to him 4. Local infiltrati ve nerve block was administer ed to the right great toe consisting of 5 cc of 1% Xylocaine plain. No epinephrin e was utilized 5. Prepping and draping was accomplish ed to the right foot 6. Surgical excision was accomplish ed today in office to the right great toe followed by the applicatio n of a clean dry sterile dressing (see descriptio n) [id number] Jay Morton DPM [facility] [place] [address] [place] [address] 12/26/2021 14:11:22 12/27/2021 02:53:14 Plantar wart of right foot 5167020761 6701402 B07.0 1. exam and evaluation 2. At this juncture in time I recommende d compassion ate neglect with regards to right great toe Obesity 527624095 E66.9 Diet: 1800 Calories Low Glycemic Index Diet Exercise: Work up to 30 min 5x/week as tolerated Health Concerns Section Related Observation LastModified by Organization Detai ls LastModified Time None Recorded Concern Status LastModified by Organization Details LastModified Time None Recorded Advance Directives Directive N: Payers Insurance Date Sequence Insurance Name Policy Number Policy Ross Covered Member ID Ross Member ID Guarantor Name 03/01/2023 1 [facility] Ammon Steele [id number] Ammon Steele 03/01/2023 [facility] Ammon Steele [id number] Ammon Steele 02/20/2023 1 *SELF PAY* Ammon Steele 000 000 Ammon Steele Notes Date Note Type Note Provider Name and Address Organization Details Recorded Time 11/28/2021 text/html Mr. Steele is a 66-year-old gentleman who presents to podiatry today with chief complaint of a wart on the right great toe he states it causes him swelling and night pain he states that the pain intensity is moderate and he rates the pain as a 5 out of 10 he states that the quality the pain is aching and that the frequency the pain is intermittent he states that the pain is exacerbated upon excessive weightbearing and ambulation and bending the right great toe he states that the pain does radiate all over the right great toe he states that the pain has not been relieved by anything and he denies any current medical treatment for this condition he denies being in pain management and denies seeing any other foot ankle surgeon for this condition at this time. Jay Morton DPM [address], [place], [address], [facility] 11/28/2021 12:34:58 12/26/2021 text/html Mr. Cedric pena nts to podiatry today for follow-up care with regards to plantar verruca of the right foot. He states he is doing a lot better and is able to weight-bear and ambulate without any pain at this time. Jay Morton DPM [address], [place], [address], [facility] 12/26/2021 14:57:32
--- OUTSIDE RECORDS SUMMARY | 2024-11-23 10:51 | XMS_ITS | Data Portability ---
Author Organization [facility] JO[facility]F [facility] Address [address] [place] [address] Assessment Encounter Date Assessment Date Assessment LastModified by Organization Details LastModified Time 02/23/2022 02/23/2022 current smoker: 50 years, 1pk/day [email or web address] Not available 06/14/2022 19:15:41 03/02/2022 03/02/2022 48 years, 1pk/day Not available 03/02/2022 13:54:04 04/28/2022 04/28/2022 Pt requested to be reminded of his follow up visit next Sunday05/01/22 Not available 04/28/2022 18:53:17 05/03/2022 05/03/2022 Pt requested to be reminded of his follow up visit next Sunday05/01/22 Not available 05/03/2022 19:36:14 Plan of Treatment Reminders Order Date Submit Date Provider Last Modified By Organization Details Last Modified Time Details Appointments None recorded. Lab CBC w/ auto diff 2021 022 [facility] [address] [place], [address], 05:07:40 CMP, serum or plasma 2021 022 [facility] [address] [place], [address], 05:07:39 Referral None recorded. Procedures None recorded. Surgeries None recorded. Imaging US, abdomen, limited - RUQ Ultrasound 2021 [facility], [address] [place], [address], 15:13:00 electrocar diogram 2021 [facility], [address] [facility], [address], [place], [address], 12:28:42 XR, chest, 2 view 2021 [facility], [address] [facility], [address], [place], [address], 17:06:39 Medication Orders pantoprazo le 20 mg tablet,del ayed release 2021 [id number], [address] [place], [address], 19:53:54 ondansetro n 8 mg disintegra ting tablet 2021 [facility] [address] [place], [address], 18:51:19 albuterol sulfate HFA 90 mcg/actuat ion aerosol inhaler 2021 [facility], [address] [place], [address], 18:51:21 pantoprazo le 20 mg tablet,del ayed release 2021 [facility], [address] [place], [address], 18:51:21 Flonase Allergy Relief 50 mcg/actuat ion nasal spray,susp ension [address]/Pharmacy #9816, [address] [place], [address], 13:56:47 amoxicilli n 875 mg-potassi um clavulanat e 125 mg tablet [address]/Pharmacy #9816, [address] [place], [address], 13:56:47 Flonase Allergy Relief 50 mcg/actuat ion nasal spray,susp ension 2021 022 [facility], [address] [place], [address], 17:38:41 amoxicilli n 875 mg-potassi um clavulanat e 125 mg tablet 2021 022 [facility], [address] [place], [address], 17:38:41 Patient TargetsNo targets recorded. Patient InstructionsNo instructions recorded. Reason for Referral None Reported. Results Created Date Observation Date Name Description Value Unit Range Abnormal Flag Note LastModifiedBy Organization Detail LastModifiedTime 04/28/2004/28/2022 CBC W/AUT O DIFF abnormal status low Not Available [facility] [address], [place], [address], 04/29/2022 05:07:40 04/28/20 22 04/28/2022 CBC W/AUT O DIFF abnormal status high Not Available [facility] [address], [place], [address], 04/29/2022 05:07:40 04/28/20 22 04/29/2022 COMP METAB OLIC PANEL sodium 143 mEq/L 135-14 6 Not Available [facility] [address] [facility] [address], [place], [address], 04/29/2022 05:07:39 04/28/20 22 04/29/2022 COMP METAB OLIC PANEL potassium 4.8 mEq/L 3.5-5. 4 Not Available [facility] [address] [place] [address] [address], [place], [address], 04/29/2022 05:07:39 04/28/20 22 04/29/2022 COMP METAB OLIC PANEL chloride 105 mEq/L 95-107 Not Available [facility] [address] [place] [address] [address], [place], [address], 04/29/2022 05:07:39 04/28/20 22 04/29/2022 COMP METAB OLIC PANEL carbon dioxide 30 mEq/L 19-31 Not Available [facility] [address] [place] [address] [address], [place], [address], 04/29/2022 05:07:39 04/28/20 22 04/29/2022 COMP METAB OLIC PANEL anion gap 8.0 mEq/L 7.0-17 .0 Not Available [facility] [address] [place] [address] [address], [place], [address], 04/29/2022 05:07:39 04/28/20 22 04/29/2022 COMP METAB OLIC PANEL glucose non-fasting 94 mg/dL 70-140 Not Available [facility] [address] [facility] [address], [place], [address], 04/29/2022 05:07:39 04/28/20 22 04/29/2022 COMP METAB OLIC PANEL urea nitrogen (BUN) 17 mg/dL 8-23 Not Available [facility] [address] [facility] [address], [place], [address], 04/29/2022 05:07:39 04/28/20 22 04/29/2022 COMP METAB OLIC PANEL creatinine 1.1 mg/dL 0.8-1. 4 Not Available [facility] [address] [facility] [address], [place], [address], 04/29/2022 05:07:39 04/28/2004/29/2022 COMP METAB OLIC PANEL 2020 CKD-epi eGFR-cr 73 mL/mi n/1.7 3m'2 >59 Not Available [facility] [address] [place] [address] [address], [place], [address], 04/29/2022 05:07:39 04/28/20 22 04/29/2022 COMP METAB OLIC PANEL BUN/creatini ne ratio 15 ratio 9-28 Not Available [facility] [address] [place] [address] [address], [place], [address], 04/29/2022 05:07:39 04/28/20 22 04/29/2022 COMP METAB OLIC PANEL calcium total 10.0 mg/dL 8.5-10 .5 Not Available [facility] [address] [place] [address] [address], [place], [address], 04/29/2022 05:07:39 04/28/20 22 04/29/2022 COMP METAB OLIC PANEL protein total 7.1 g/dL 6.1-8. 3 Not Available [facility] [address] [place] [address] [address], [place], [address], 04/29/2022 05:07:39 04/28/20 22 04/29/2022 COMP METAB OLIC PANEL albumin 4.4 g/dL 3.5-5. 2 Not Available [facility] [address] [place] [address] [address], [place], [address], 04/29/2022 05:07:39 04/28/20 22 04/29/2022 COMP METAB OLIC PANEL globulin 2.7 g/dL 2.0-5. 0 Not Available [facility] [address] [place] [address] [address], [place], [address], 04/29/2022 05:07:39 04/28/20 22 04/29/2022 COMP METAB OLIC PANEL A/G ratio 1.6 ratio 1.1-2. 5 Not Available [facility] [address] [place] [address] [address], [place], [address], 04/29/2022 05:07:39 04/28/20 22 04/29/2022 COMP METAB OLIC PANEL bilirubin total 0.7 mg/dL 0.0-1. 2 Not Available [facility] [address] [place] [address] [address], [place], [address], 04/29/2022 05:07:39 04/28/20 22 04/29/2022 COMP METAB OLIC PANEL alkaline phosphatase 112 U/L 39-118 Not Available [facility] [address] [place] [address] [address], [place], [address], 04/29/2022 05:07:39 04/28/20 22 04/29/2022 COMP METAB OLIC PANEL AST (SGOT) 46 U/L 9-50 Not Available [facility] [address] [place] [address] [address], [place], [address], 04/29/2022 05:07:39 04/28/20 22 04/29/2022 COMP METAB OLIC PANEL ALT (SGPT) 59 U/L 5-50 [facility], [address], [place] [address] [facility] tor: Dago jerez i, M.D., Ph.D. CLIA# [id number] Not Available [facility] [address], [place], [address], 04/29/2022 05:07:39 02/24/20 22 02/23/2022 XR, chest , 2 view No observ ation record ed. [address] [facility] [address]: [place], [address], 08/11/2022 20:54:05 04/28/20 22 04/30/2022 elect rocar diogr am No observ ation record ed. [address] [facility] [address]: [place], [address], 04/30/2022 15:35:32 07/12/19 23 04/28/2022 elect rocar diogr am No observ ation record ed. [address] [facility] [address]: [place], [address], 07/12/2022 17:40:59 Result Notes None recorded. Medical Equipment None Reported. Allergies No known drug allergies Medications Name Sig Start Date Stop Date Status Note LastModified by Organization Details LastModified Time potassium chloride ER 10 mEq tablet,exten ded release TAKE 1 TABLET BY MOUTH ONCE DAILY active Not Available Not Available No t Available chlorthalido ne 25 mg tablet TAKE 1/2 (ONE-HALF) TABLET BY MOUTH ONCE DAILY active Not Available Not Available No t Available ondansetron 8 mg disintegrati ng tablet PLACE 1 TABLET EVERY DAY BY TRANSLINGUA L ROUTE NEEDED FOR 7 DAYS. active Not Available Not Available No t Available pantoprazole 20 mg tablet,delay ed release TAKE 1 TABLET BY MOUTH EVERY DAY FOR 14 DAYS active Not Available Not Available No t Available albuterol sulfate HFA 90 mcg/actuatio n aerosol inhaler INHALE 2 PUFFS EVERY 4 HOURS BY INHALATION ROUTE NEEDED active Not Available Not Available No t Available amoxicillin 875 mg-potassium clavulanate 125 mg tablet Take 1 tablet every 12 hours by oral route with meals for 10 days. 2021 active Not Available Not Available Not Avai lable alfuzosin ER 10 mg tablet,exten ded release 24 hr TAKE 1 TABLET BY MOUTH IN THE EVENING active Not Available Not Available Not Available Flonase Allergy Relief 50 mcg/actuatio n nasal spray,suspen sherrie Henrietta 1 spray every day by intranasal route at bedtime for 7 days. 2021 active Not Available Not Available Not Avai lable Vitals Date Recorded Body height Heart rate Respiratory rate Body temperature Body mass index (BMI) Body weight Oxygen saturation Oxygen saturation in Arterial blood by Pulse oximetry Systolic blood pressure Diastolic blood pressure Provider Name and Address Organization Details Last Updated DateTime 2 167.64 cm 106 /min 25 /min 98.1 [degF] 30.2 kg/m2 09843.7 7 g 98 % 98 % 146 mm[Hg] 86 mm[Hg] [facility] 2 15:40:32 Date Recorded Body height Heart rate Respiratory rate Body temperature Body mass index (BMI) Body weight Oxygen saturation Oxygen saturation in Arterial blood by Pulse oximetry Systolic blood pressure Diastolic blood pressure Provider Name and Address Organization Details Last Updated DateTime 2 167.64 cm 103 /min 25 /min 98.2 [degF] 29.9 kg/m2 93573.5 9 g 98 % 98 % 126 mm[Hg] 82 mm[Hg] [facility] 2 13:36:46 Date Recorded Body height Body mass index (BMI) Body weight Oxygen saturation Oxygen saturation in Arterial blood by Pulse oximetry Systolic blood pressure Diastolic blood pressure Provider Name and Address Organization Details Last Updated DateTime 2 167.64 cm 30 kg/m2 79365.1 8 g 95 % 95 % 162 mm[Hg] 92 mm[Hg] Estela Kelvin [facility] 2 16:57:50 Date Recorded Body height Body mass index (BMI) Body weight Heart rate Oxygen saturation Oxygen saturation in Arterial blood by Pulse oximetry Body temperature Systolic blood pressure Diastolic blood pressure Provider Name and Address Organization Details Last Updated DateTime 167.64 cm 30.1 kg/m2 63320.6 2 g 95 /min 96 % 96 % 97.5 [degF] 127 mm[Hg] 77 mm[Hg] Drea Hayes [facility] 2 19:07:52 Social History None recorded. Functional Status None recorded. Mental Status None recorded. Family History Nothing Reported. Medical History No medical history recorded. Past Encounters Encounter ID Performer Location Encounter Start Date Encounter Closed Date Diagnosis/Indication Diagnosis SNOMED-CT Code Diagnosis ICD10 Code Diagnosis Note [id number] MD [place] [facility] [address] [place] [address] 02/23/2022 15:03:32 03/11/2022 17:06:38 Hemoptysis 82842953 R04.2 - CXR: no acute cardiopulm onary abnormalit y- likely post tussive- monitor, to follow up with PCP if persists after treatment of acute sinusitis Cough 10126385 R05.9 Congestion of nasal sinus 42089405 R09.81 Onychomyco sis of toenails 174818367 B35.1 - f/u with PCP Loss of appetite 3436685 6 R63.0 - f/u with PCP Acute sinusitis 72290102 J01.90 [id number] MD [place] [address] [place] [address] 03/02/2022 13:22:33 03/02/2022 14:23:51 Hemoptysis 10224959 R04.2 -Currently controlled . States no episode of hemoptysis - Pt to refrain from smoking cigarettes Onychomyco sis of toenails 039857511 B35.1 - Pt states that he prefers to follow up with his primary physician back at home Acute sinusitis 20320702 J01.90 - Pt states that his sinus' feel better and has resolved- Pt finished course of Augmentin [id number] MD [facility] [address] : [place] [address] 04/28/2022 16:20:26 05/12/2022 12:28:42 Chest discomfort 078251358 R07.89 - pt reports heart burn.- Elevated BP 162/92-lik carly due to acid reflux however will rule out ACS with ECG- ECG does now show evidence of ACS at this time. Reviewed by Dr. Reyna- Will start pantoprazo le- Advised to f/u in 3 days- ER precaution s provided - pt advised to go to ER if develops severe chest pain or abdominal pain/diste nsion Increased blood pressure 55308622 R03.0 BP elevated at 162/92 today. ECG does not show evidence of current ACS Dizziness 531060384 R42 - Will order CMP and CBC Abdominal pain 53984831 R10.9 - Reports RUQ tenderness when coughing- Negative lassiter sign however reports nausea- Ordered CBC and CMP. Will follow up with results Nausea 601653266 R11.0 - Started ondansetro n as needed Dyspnea 059553099 R06.00 - Pt reports intermitte nt shortness of breath and uses albuterol inhaler as needed- States albuterol works well for him- Will refill albuterol inhaler [id number] Mati Reyna MD [facility] [address] [facility],[address] [place] [address] 05/03/2022 18:55:20 05/12/2022 15:13:00 Right upper quadrant pain 784478323 R10.11 - Pt reports continued pain in RUQ when coughing- CMP shows elevated ALT. AST normal.- Ordered US of RUQ to be given to pt to be done in the lab- Will follow up with Ultrasound results once available Acid reflux 928816418 K2 1.9 - pt reports significan t improvemen ts to heart burn with usage from pantoprazo le.- States no longer experienci ng heart burn or chest discomfort - Advised to continue Pantoprazo le Nausea 971567135 R11.0 Liver enzy mes level above reference range 168952654 R74.01 -ALT elevated at 59- Ordered US of RUQ abdomen Health Concerns Section Related Observation LastModified by Organization Detai ls LastModified Time None Recorded Concern Status LastModified by Organization Details LastModified Time None Recorded Advance Directives Directive None Recorded Payers Insurance Date Sequence Insurance Name Policy Number Policy Ross Covered Member ID Ross Member ID Guarantor Name 05/12/2022 [facility] Ammon Steele [id number] Ammon Steele 02/23/2022 1 *SELF PAY* Madhuri Steele Notes Date Note Type Note Provider Name and Address Organization Details Recorded Time 02/23/2022 text/html 66yo male with headache X 4 days- frontal radiates to occipital and neck- shortness of breath +- dry cough- PND +- bright red blood in sputum and nasal discharge- low temp 99.7F- able to tolerate small portions (loss of appetite)- retrosternal pain after meals - burning pain- no h/o NC/HTN/DM- PMHx: h/o skin cancer, COVID in 06/2021 [place] [address], [place], [address], [facility] 06/14/2022 19:16:53 03/02/2022 text/html This is a 66 y/o male who presents to clinic for follow up. Pt was previously seen for acute sinusitis with cough as well as hemoptysis. Pt denies new episodes of hemoptysis. He states that he is feeling much better and believes that the antibiotics has helped him. He states that for the onychomycosis of toenails, he will follow up with [place] [address] [address], [place], [address], [facility] 06/14/2022 21:59:55 04/28/2022 text/html This is a 66 y/o male who presents to clinic with c/o dizziness when getting out of bed, adominal irritation when eating, and nausea x 2 weeks. Pt very pleasant. He states that the dizziness is only when he gets out of bed and the abdominal pain is in the RUQ and only occurs when coughing. The abdominal irritation/lower chest discomfort experienced after eating is reported to be heart burn. He states that he is using an inhaler at this time for intermittent shortness of breath and is well controlled but he requires a refill. He denies fevers, chills, [place] [address], [place], [address], [facility] 05/01/2022 13:55:29 05/03/2022 text/html This is a 66 y/o male who presents to clinic for follow up appointment. Pt very pleasant. He states that he is feeling better today and his heartburn has improved with pantoprazole usage. Labs were discussed and pt was notified that his liver enzyme (ALT) was elevated. Pt states that he has roughly 1 alcoholic drink per day in the past and now he does not drink alcohol. He states has not had an alcoholic beverage for at least 1 year. Pt also reports that he still has some headaches and dizziness in the morning after waking up which improves throughout the day. He states that the RUQ abdominal pain when coughing is still present. [place] [address], [place], [address], [facility] 05/11/2022 18:39:40
[2024-11-23 10:55] VITALS: BP 141/100; PULSE 90; RESP 18; TEMP 36.6; O2SAT 98
== END 2024-11-23 10:56 | disposition home or self-care (01) ==
PROVIDERS: Emergency Provider Student in an Organized Health Care Education/Training Program
DX: K08.89 Other specified disorders of teeth and supporting structures (principal)
CPT/HCPCS: 93005; 99283